=== PATIENT | male | born 1965 | race Hispanic/Latino ===

== ENCOUNTER 2017-10-17 11:44 | Inpatient (IN) | payer MEDICAID, OTHER ==
--- NOTE | 2017-10-17 12:08 | ED PDOC ---
Arrival/HPI - General Chief Complaint: Shortness Of Breath Time Seen by Provider: 10/17/17 12:03 Historian: Patient - History of Present Illness Narrative History of Present Illness (Text): 10/17/17 12:08 A 52 year old male, whose past medical history includes asthma, presents to the emergency department complaining of progressively worsening shortness of breath for 1 week. Patient reports using nebulizer treatments 3-4 times daily, with no relief. He notes a fever, chills, wheezing and productive cough. Patient denies any nausea, vomiting, diarrhea, abdominal pain, chest pain or any other complaints. Patient denies any sick contact. PMD: Dr. Rodriguez Time/Duration: 1 week Symptom Course: Worsening Context: Home Past Medical History - Provider Review Nursing Documentation Reviewed: Yes - Infectious Disease Hx of Infectious Diseases: None - Cardiac Hx Cardiac Disorders: No Hx Pacemaker: No - Pulmonary Hx Respiratory Disorders: No Hx Asthma: Yes Other/Comment: SMOKE 1 1/2 PACK A DAY, USES INHALER BUT DENIES HAVING ASTHMA ANY RESP. PROBLEM - Neurological Hx Neurological Disorder: No Hx Paralysis: No - HEENT Hx HEENT Disorder: Yes (USES GLASSES FOR READING) - Endocrine/Metabolic Hx Endocrine Disorders: No - Hematological/Oncological Hx Blood Disorders: No Hx Blood Transfusions: No - Integumentary Hx Dermatological Disorder: No - Musculoskeletal/Rheumatological Hx Musculoskeletal Disorders: No - Gastrointestinal Hx Gastrointestinal Disorders: No - Genitourinary/Gynecological Hx Genitourinary Disorders: Yes Other/Comment: HX OF FREQUENT URINATION ON MEDS - Psychiatric Hx Psychophysiologic Disorder: No Hx Substance Use: No - Anesthesia Hx Anesthesia: No Family/Social History - Physician Review Nursing Documentation Reviewed: Yes Family/Social History: No Known Family HX Smoking Status: Heavy Smoker > 10 Cigarettes Daily Hx Alcohol Use: Yes Hx Substance Use: No Allergies/Home Meds Allergies/Adverse Reactions: Allergies No Known Allergies Allergy (Verified 10/17/17 22:18) Review of Systems - Physician Review All systems were reviewed & negative as marked: Yes - Review of Systems Constitutional: Fevers, Night Sweats Respiratory: SOB, Cough, Sputum, Wheezing Cardiovascular: absent: Chest Pain Gastrointestinal: absent: Abdominal Pain, Diarrhea, Nausea, Vomiting Physical Exam Vital Signs Reviewed: Yes Vital Signs Temp Pulse Resp BP Pulse Ox 10/17/17 17:19 18 99 10/17/17 16:43 98.7 F 89 20 142/80 94 L 10/17/17 12:40 20 10/17/17 12:36 97.7 F 86 18 160/87 H 97 10/17/17 11:53 98.4 F 82 18 141/84 96 Temperature: Afebrile Blood Pressure: Hypertensive Pulse: Regular Respiratory Rate: Normal Appearance: Positive for: Well-Appearing, Non-Toxic, Comfortable Pain Distress: None Mental Status: Positive for: Alert and Oriented X 3 - Systems Exam Head: Present: Atraumatic, Normocephalic Pupils: Present: PERRL Extroacular Muscles: Present: EOMI Conjunctiva: Present: Normal Mouth: Present: Moist Mucous Membranes Neck: Present: Normal Range of Motion Respiratory/Chest: Present: Good Air Exchange, Wheezes (bilaterally), Rhonchi ( bilaterally). No: Respiratory Distress, Accessory Muscle Use Cardiovascular: Present: Regular Rate and Rhythm, Normal S1, S2. No: Murmurs Abdomen: Present: Normal Bowel Sounds. No: Tenderness, Distention, Peritoneal Signs Back: Present: Normal Inspection Upper Extremity: Present: Normal Inspection. No: Cyanosis, Edema Lower Extremity: Present: Normal Inspection. No: Edema Neurological: Present: GCS=15, CN II-XII Intact, Speech Normal Skin: Present: Warm (to touch), Dry, Normal Color. No: Rashes Psychiatric: Present: Alert, Oriented x 3, Normal Insight, Normal Concentration Medical Decision Making ED Course and Treatment: 10/17/17 12:08 Impression: A 52 year old male with shortness of breath. Patient notes fever, wheezing and productive cough. Differential Diagnosis included but are not limited to: Rule out Asthma exacerbation vs. PNA Plan: -- Chest xray -- EKG -- Labs -- Blood culture -- Rapid flu -- Duoneb and Solumedrol -- Reassess and disposition Progress Notes: EKG shows NSR at 91 BPM with normal intervals, normal axis. Interpreted by me. 10/17/17 13:10 Chest xray read and interpreted by me, which shows no active disease. 10/17/17 15:00 Patient's sodium was low and treated with NS IVF. On reevalution, pateint improved but continues to have wheezing and shortness of breathe. Neb treatments given. Case discussed with Dr. Ren, who accepts admission to remote telemetry. Patient aware of and in agreement with plan. - Lab Interpretations Microbiology Results: Microbiology Results 10/17/17 12:09 Blood-Venous Blood Culture - Preliminary NO GROWTH AFTER 4 DAYS 10/17/17 11:50 Blood-Venous Blood Culture - Preliminary NO GROWTH AFTER 4 DAYS Lab Results: 10/17/17 12:04 10/17/17 12:04 Lab Results 10/17/17 13:20: pCO2 55 H, pO2 68.0 L, HCO3 32.5 H, ABG pH 7.38, ABG Total CO2 34.2 H, ABG O2 Saturation 97.6, ABG O2 Content 16.7, ABG Base Excess 5.8 H, ABG Hemoglobin 13.9, ABG Carboxyhemoglobin 12.2 H, POC ABG HHb (Measured) 2.1, ABG Methemoglobin 0.6, ABG O2 Capacity 17.1, Hgb O2 Saturation 85.1 L, FiO2 21.0 10/17/17 12:16: Influenza Typ A,B (EIA) Negative for flu a/b 10/17/17 12:04: Sodium 121 L, Chloride 81 L, Potassium 4.4, Carbon Dioxide 32, Anion Gap 12, BUN 13, Creatinine 0.5 L, Est GFR ( Amer) > 60, Est GFR ( Non-Af Amer) > 60, Random Glucose 135 H, Calcium 9.5, Lactate Dehydrogenase 391 , Total Creatine Kinase 197, Troponin I < 0.01, NT-Pro-B Natriuret Pep 329 10/17/17 12:04: pO2 67 H, VBG pH 7.38, VBG pCO2 66.0 H*, VBG HCO3 39.0 H, VBG Total CO2 41.0 H, VBG O2 Sat (Calc) 97.0 H, VBG Base Excess 11.1 H, VBG Potassium 4.3, Sodium 121.0 L, Chloride 84.0 L, Glucose 139 H, Lactate 1.1, FiO2 21.0, Venous Blood Potassium 4.3 10/17/17 12:04: WBC 10.6, RBC 4.58, Hgb 14.2, Hct 40.7 L, MCV 88.9, MCH 31.0, MCHC 34.9, RDW 12.6, Plt Count 284, MPV 10.7, Gran % 72.5 H, Lymph % (Auto) 13.1 L, [place] % (Auto) 10.8 H, Eos % (Auto) 3.3, Baso % (Auto) 0.3, Gran # 7.68 H , Lymph # 1.4, [place] # 1.2 H, Eos # 0.4, Baso # 0.03 I have reviewed the lab results: Yes Interpretation: All labs normal - RAD Interpretation Radiology Orders: 10/17/17 12:15 CHEST PORTABLE [RAD] Stat - Medication Orders Current Medication Orders: Discontinued Medications Acetaminophen (Tylenol 325mg Tab) 650 mg PO Q4H PRN PRN Reason: Fever >100.5 F Albuterol/Ipratropium (Duoneb 3 Mg/0.5 Mg (3 Ml) Ud) 3 ml IH Q15M [facility] Stop: 10/17/17 13:01 Last Admin: 10/17/17 13:01 Dose: 3 ml Albuterol/Ipratropium (Duoneb 3 Mg/0.5 Mg (3 Ml) Ud) 3 ml IH [id number] [facility] Last Admin: 10/18/17 11:54 Dose: 3 ml Albuterol/Ipratropium (Duoneb 3 Mg/0.5 Mg (3 Ml) Ud) 3 ml IH Q2H PRN PRN Reason: Wheezing Last Admin: 10/18/17 10:00 Dose: 3 ml Albuterol/Ipratropium (Duoneb 3 Mg/0.5 Mg (3 Ml) Ud) 3 ml IH Q3H PRN PRN Reason: Wheezing Enoxaparin Sodium (Lovenox) 30 mg SC DAILY [facility] PRN Reason: Protocol Last Admin: 10/18/17 09:44 Dose: 30 mg Subcutaneous Administrations Document 10/18/17 09:44 MM (Rec: 10/18/17 09:44 MM [id number]) Injection Site MAR Injection Site Right Abdomen Charges for Administration # of Subcutaneous Administrations 1 Famotidine (Pepcid) 40 mg PO [facility] Last Admin: 10/17/17 21:44 Dose: 40 mg Folic Acid (Folic Acid) 1 mg PO DAILY [facility] Last Admin: 10/18/17 09:43 Dose: 1 mg Guaifenesin (Robitussin) 100 mg PO Q4H PRN PRN Reason: Cough Last Admin: 10/17/17 21:44 Dose: 100 mg Sodium Chloride (Sodium Chloride 0.9%) 1,000 mls @ 100 mls/hr IV .Q10H [facility] Last Admin: 10/17/17 15:49 Dose: 100 mls/hr eMAR Start Stop Document 10/17/17 15:49 [email or web address] (Rec: 10/17/17 15:50 [email or web address] [facility] [id number]) Intravenous Solution Start Date 10/17/17 Start Time 15:50 End Date 10/17/17 Azithromycin (Zithromax 500mg In Ns) 500 mg in 250 mls @ 167 mls/hr IVPB DAILY [facility] PRN Reason: Protocol Last Admin: 10/18/17 09:39 Dose: 167 mls/hr eMAR Start Stop Document 10/18/17 09:39 MM (Rec: 10/18/17 09:40 MM [id number]) Intravenous Solution Start Date 10/18/17 Start Time 09:40 End Date 10/18/17 End time 11:10 Total Infusion Time 90 Sodium Chloride (Sodium Chloride 0.9%) 1,000 mls @ 80 mls/hr IV .[id number] [facility] Last Admin: 10/17/17 17:05 Dose: 80 mls/hr eMAR Start Stop Document 10/17/17 17:05 [email or web address] (Rec: 10/17/17 17:[email or web address] [id number]) Intravenous Solution Start Date 10/17/17 Start Time 17:05 End Date 10/17/17 Sodium Chloride (Sodium Chloride 0.9%) 1,000 mls @ 50 mls/hr IV .Q20H [facility] Methylprednisolone (Solu-Medrol) 125 mg IVP STAT STA Stop: 10/17/17 12:13 Last Admin: 10/17/17 12:31 Dose: 125 mg IVP Administration Document 10/17/17 12:31 [email or web address] (Rec: 10/17/17 12:31 [email or web address] [id number]) Charges for Administration # of IVP Administrations 1 Methylprednisolone (Solu-Medrol) 40 mg IVP Q12 [facility] Methylprednisolone (Solu-Medrol) 40 mg IVP DAILY [facility] Methylprednisolone (Solu-Medrol) 40 mg IVP Q8H [facility] Last Admin: 10/18/17 09:43 Dose: 40 mg IVP Administration Document 10/18/17 09:43 MM (Rec: 10/18/17 09:43 MM [id number]) Charges for Administration # of IVP Administrations 1 Nicotine (Nicoderm Cq) 1 patch TD STAT STA Stop: 10/17/17 15:07 Last Admin: 10/17/17 15:51 Dose: 1 patch MAR Transdermal Patch Site Document 10/17/17 15:51 [email or web address] (Rec: 10/17/17 15:52 [email or web address] [facility] [id number]) Transdermal Patch Site Transdermal Patch Site Right Shoulder Re-Assess: MAR Transdermal Patch Removal Document 10/18/17 03:51 ALCIDES (Rec: 10/18/17 06:12 [email or web address]) Transdermal Patch Removal Removal of Transdermal Patch done? Yes Nicotine (Nicoderm Cq) 1 patch TD DAILY [facility] Last Admin: 10/18/17 09:44 Dose: 1 patch MAR Transdermal Patch Site Document 10/18/17 09:44 MM (Rec: 10/18/17 09:44 MM [id number]) Transdermal Patch Site Transdermal Patch Site Right Outer Upper Arm Pneumococcal Polyvalent Vaccine (Pneumovax 23 Vaccine) 0.5 ml IM .ONCE ONE Stop: 10/17/17 23:10 Thiamine HCl (Vitamin B1 Tab) 100 mg PO DAILY [facility] Last Admin: 10/18/17 09:58 Dose: 100 mg - Scribe Statement The provider has reviewed the documentation as recorded by the George Dunn Provider Scribe Attestation: All medical record entries made by the Scribamanda were at my direction and personally dictated by me. I have reviewed the chart and agree that the record accurately reflects my personal performance of the history, physical exam, medical decision making, and the department course for this patient. I have also personally directed, reviewed, and agree with the discharge instructions and disposition. Disposition/Present on Arrival - Present on Arrival Any Indicators Present on Arrival: No History of DVT/PE: No History of Uncontrolled Diabetes: No Urinary Catheter: No History of Decub. Ulcer: No History Surgical Site Infection Following: None - Disposition Have Diagnosis and Disposition been Completed?: Yes Diagnosis: COPD exacerbation, Hyponatremia Disposition: HOSPITALIZED Disposition Time: 15:00 Patient Plan: Admission Condition: GUARDED
[2017-10-17] MEDS: Albuterol-Ipratrop 3 mg / 0.5 (3 ml) UD IH SCH ×4 (12:31→18:48)
--- NOTE | 2017-10-17 12:41 | RAD ---
HISTORY: sob r/o pna COMPARISON: No prior. FINDINGS: LUNGS: The lungs are well inflated and clear. PLEURA: No significant pleural effusion identified, no pneumothorax apparent. CARDIOVASCULAR: Normal. OSSEOUS STRUCTURES: No significant abnormalities. VISUALIZED UPPER ABDOMEN: Normal. OTHER FINDINGS: None. IMPRESSION: No active pulmonary disease.
[2017-10-17 12:43] LABS: VENOUS BLOOD GAS BASE EXCESS 11.1 mmol/L (0.0-2.0); VENOUS BLOOD GAS PO2 67 mm/Hg (30-55); VENOUS BLOOD PH 7.38 (7.32-7.43)
[2017-10-17 12:50] LABS: BLOOD UREA NITROGEN 13 mg/dL (7-21); CALCIUM 9.5 mg/dL (8.4-10.5); GFR AFRICAN-AMERICAN > 60; GFR NON-AFRICAN AMERICAN > 60
[2017-10-17 13:01] LABS: B-TYPE NATRIURETIC PEPTIDE 329 pg/mL (0-450); TROPONIN I < 0.01 ng/mL
[2017-10-17 13:04] LABS: BASO # 0.03 K/mm3 (0.0-2.0); BASO % 0.3 % (0.0-3.0); EOS # 0.4 (0.0-0.7); EOS % 3.3 % (1.5-5.0); GRAN # 7.68 (1.4-6.5); GRAN % 72.5 % (50.0-68.0); HEMOGLOBIN 14.2 g/dL (14.0-18.0); LYMPH # 1.4 (1.2-3.4); LYMPH % 13.1 % (22.0-35.0); MEAN CELL VOLUME 88.9 fl (80.0-105.0); MEAN CORPUSCULAR HGB CONC 34.9 g/dl (31.0-37.0); MEAN PLATELET VOLUME 10.7 fl (7.0-11.0); MONO # 1.2 (0.1-0.6); MONO % 10.8 % (1.0-6.0); RBC 4.58 10^6/uL (3.5-6.1); RED CELL DISTRIBUTION WIDTH 12.6 % (11.5-14.5); WHITE BLOOD COUNT 10.6 10^3/ul (4.5-11.0)
[2017-10-17] MEDS ORDERED: Sodium Chloride 0.9% 1,000 ML IV SCH ×2 (13:15→16:01)
[2017-10-17 13:28] LABS: ARTERIAL BLOOD GAS HCO3 32.5 mmol/L (21-28); ARTERIAL BLOOD GAS HEMOGLOBIN 13.9 g/dL (11.7-17.4); ARTERIAL BLOOD GAS O2 CAPACITY 17.1 mL/dl (16-24); ARTERIAL BLOOD GAS O2 CONTENT 16.7 ML/dl (15-23); ARTERIAL BLOOD GAS O2 SAT 97.6 % (95-98); ARTERIAL BLOOD GAS PCO2 55 mm/Hg (35-45); ARTERIAL BLOOD GAS PH 7.38 (7.35-7.45); ARTERIAL BLOOD GAS TCO2 34.2 mmol.L (22-28)
--- NOTE | 2017-10-17 16:46 | CP.PCM.HP ---
Past Patient History - Infectious Disease Hx of Infectious Diseases: None - Past Medical History & Family History Past Medical History?: Yes - Past Social History Smoking Status: Heavy Smoker > 10 Cigarettes Daily - CARDIAC Hx Cardiac Disorders: No Hx Pacemaker: No - PULMONARY Hx Respiratory Disorders: No Hx Asthma: Yes Other/Comment: SMOKE 1 1/2 PACK A DAY, USES INHALER BUT DENIES HAVING ASTHMA ANY RESP. PROBLEM - NEUROLOGICAL Hx Neurological Disorder: No Hx Paralysis: No - HEENT Hx HEENT Problems: Yes (USES GLASSES FOR READING) - ENDOCRINE/METABOLIC Hx Endocrine Disorders: No - HEMATOLOGICAL/ONCOLOGICAL Hx Blood Disorders: No Hx Blood Transfusions: No - INTEGUMENTARY Hx Dermatological Problems: No - MUSCULOSKELETAL/RHEUMATOLOGICAL Hx Musculoskeletal Disorders: No - GASTROINTESTINAL Hx Gastrointestinal Disorders: No - GENITOURINARY/GYNECOLOGICAL Hx Genitourinary Disorders: Yes Other/Comment: HX OF FREQUENT URINATION ON MEDS - PSYCHIATRIC Hx Psychophysiologic Disorder: No Hx Substance Use: No - SURGICAL HISTORY Hx Surgeries: No - ANESTHESIA Hx Anesthesia: No Meds Allergies/Adverse Reactions: Allergies Allergy/AdvReac Type Severity Reaction Status Date / Time No Known Allergies Allergy Verified 10/17/17 11:58 Results - Vital Signs Recent Vital Signs: Last Vital Signs Temp 98.7 F 10/17/17 16:43 Pulse 89 10/17/17 16:43 Resp 20 10/17/17 16:43 BP 142/80 10/17/17 16:43 Pulse Ox 94 L 10/17/17 16:43 - Labs Result Diagrams: 10/17/17 12:04 10/17/17 12:04
[2017-10-17] MEDS: Azithromycin 500MG/NS 250ml 500 MG/250 ML BAG IVPB SCH (16:57)
[2017-10-17] MEDS ORDERED: Albuterol-Ipratrop 3 mg / 0.5 (3 ml) UD IH PRN (17:06)
[2017-10-17 17:30] LABS: PH,URINE 6.5 (4.7-8.0); URINE BILIRUBIN NEGATIVE (NEGATIVE); URINE BLOOD NEGATIVE (NEGATIVE); URINE GLUCOSE (UA) NEGATIVE (NEGATIVE); URINE LEUKOCYTE ESTERASE NEGATIVE Leu/uL (NEGATIVE); URINE NITRATE NEGATIVE (NEGATIVE); URINE PROTEIN NEGATIVE mg/dL (<30 mg/dL); URINE UROBILINOGEN 0.2 E.U./dL (<1 E.U./dL)
[2017-10-17 17:35] LABS: HDL CHOLESTEROL 81 mg/dL (29-60); URIC ACID 2.8 mg/dL (3.5-8.5)
[2017-10-17 17:37] LABS: URINE APPEARANCE CLEAR (CLEAR); URINE COLOR STRAW (YELLOW)
[2017-10-17] MEDS ORDERED: guaiFENesin 100 mg/5 ml Syrup UD PO PRN (17:42)
[2017-10-17 17:43] LABS: LDL CHOLESTEROL 65 mg/dL (0-129)
--- NOTE | 2017-10-17 17:43 | CP.PCM.HP ---
<Deidra Fox - Last Filed: 10/17/17 17:26> History of Present Illness - History of Present Illness History of Present Illness: Deidra Fox, PGY1, H&P for Dr Ren: CC: wheezing 52 year old male with hx of asthma (never intubated), tobacco abuse/alcohol abuse, presents for wheezing. Pt states that he has been cold symptoms for past week with sore throat, productive cough (yellow sputum), nasal congestion. He has been requiring his ventolin inhaler more than usual at home. He then started having wheezing, requiring him to come to ED. Denies fever, chills, nausea, vomiting, diarrhea, abdominal pain, chest pain, sob, urinary symptoms, leg swelling, orthopnea, pleurisy, tachycardia. Patient denies any sick contact or recent travel. In ED, pt afebrile, vitals stable. Labs remarkbale for Na 121, started on NS @ 100 ml/hr. Received methylprednisolone 125 mg, duonebs treatment in ED. At the time of my exam, pt comfortable, not wheezing. 12 point ROS neg, except as per HPI PMH: Asthma, tobacco/alcohol abuse PSH: denies All: denies FH: denies SH: lives in [facility] with girlfriend. Drinks 4-5 cans of beers daily. 1.5 ppd smoker x >20 years. Previous IV drug user, denies current recreational drug use. 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 Present on Admission - Present on Admission Any Indicators Present on Admission: No History of DVT/PE: No History of Uncontrolled Diabetes: No Urinary Catheter: No Decubitus Ulcer Present: No Review of Systems - Review of Systems All systems: reviewed and no additional remarkable complaints except Review of Systems: as per hpi Past Patient History - Infectious Disease Hx of Infectious Diseases: None - Past Medical History & Family History Past Medical History?: Yes - Past Social History Smoking Status: Heavy Smoker > 10 Cigarettes Daily - CARDIAC Hx Cardiac Disorders: No Hx Pacemaker: No - PULMONARY Hx Respiratory Disorders: No Hx Asthma: Yes Other/Comment: SMOKE 1 1/2 PACK A DAY, USES INHALER BUT DENIES HAVING ASTHMA ANY RESP. PROBLEM - NEUROLOGICAL Hx Neurological Disorder: No Hx Paralysis: No - HEENT Hx HEENT Problems: Yes (USES GLASSES FOR READING) - ENDOCRINE/METABOLIC Hx Endocrine Disorders: No - HEMATOLOGICAL/ONCOLOGICAL Hx Blood Disorders: No Hx Blood Transfusions: No - INTEGUMENTARY Hx Dermatological Problems: No - MUSCULOSKELETAL/RHEUMATOLOGICAL Hx Musculoskeletal Disorders: No - GASTROINTESTINAL Hx Gastrointestinal Disorders: No - GENITOURINARY/GYNECOLOGICAL Hx Genitourinary Disorders: Yes Other/Comment: HX OF FREQUENT URINATION ON MEDS - PSYCHIATRIC Hx Psychophysiologic Disorder: No Hx Substance Use: No - SURGICAL HISTORY Hx Surgeries: No - ANESTHESIA Hx Anesthesia: No Meds Allergies/Adverse Reactions: Allergies Allergy/AdvReac Type Severity Reaction Status Date / Time No Known Allergies Allergy Verified 10/17/17 22:18 Physical Exam - Constitutional Appears: Non-toxic, Older Than Stated Age - Head Exam Head Exam: ATRAUMATIC, NORMOCEPHALIC - Eye Exam Eye Exam: EOMI, PERRL. absent: Conjunctival injection, Scleral icterus Pupil Exam: NORMAL ACCOMODATION, PERRL. absent: Fixed, Irregular - ENT Exam ENT Exam: Mucous Membranes Moist - Neck Exam Neck exam: Positive for: Full Rom - Respiratory Exam Respiratory Exam: Clear to Auscultation Bilateral, NORMAL BREATHING PATTERN. absent: Accessory Muscle Use, Chest Wall Tenderness, Wheezes, Respiratory Distress - Cardiovascular Exam Cardiovascular Exam: RRR, +S1, +S2. absent: Systolic Murmur - GI/Abdominal Exam GI & Abdominal Exam: Normal Bowel Sounds, Soft. absent: Diminished Bowel Sounds , Distended, Guarding, Organomegaly, Pulsatile Mass, Rigid, Tenderness - Extremities Exam Extremities exam: Positive for: normal inspection. Negative for: calf tenderness, pedal edema Additional comments: no hand tremors - Back Exam Back exam: NORMAL INSPECTION. absent: CVA tenderness (L), CVA tenderness (R) - Neurological Exam Neurological exam: Alert, Oriented x3 - Psychiatric Exam Psychiatric exam: Normal Affect, Normal Mood - Skin Skin Exam: Dry, Normal Color, Warm Results - Vital Signs Recent Vital Signs: Last Vital Signs Temp 98.7 F 10/17/17 16:43 Pulse 89 10/17/17 16:43 Resp 18 10/17/17 17:19 BP 142/80 10/17/17 16:43 Pulse Ox 99 10/17/17 17:19 - Labs Result Diagrams: 10/17/17 12:04 10/17/17 12:04 Assessment & Plan - Assessment and Plan (Free Text) Assessment: 52 year old male with hx of asthma/COPD, tobacco/alcohol abuse, admitted for hyponatremia, COPD/asthma exacerbation: Hyponatremia: 2/2 dehydration vs SIADH vs hypothyroidism vs psychogenic polydipsia vs beer potomania vs adrenocorticotropin deficiency - Pt euvolemic on exam - Na 121 on admission. Currently asymptomatic (no lethargy, headache, LOC) - Obtain urine Na, urine/serum osmolarity, TSH, uric acid. F/u results - NS @ 80 ml/hr - F/u Na level Q 8h - Seizure precautions COPD/asthma exacerbation: - hyperinflated lungs seen on CXR. neg for infiltrates. - Methyprednisolone 125 mg given in ED - Duonebs filomena and prn - Robitussin - IV steroids - Azithromycin - Maintain sats 88-92% - 2 L NC - Flu neg Alcohol abuse/Withdrawal: - CIWA protocol - Seizure/fall precautions - Ativan prn - Neuro checks Tobacco abuse: - advised cessation - Nicotine patch Discussed with Dr Ren. Deidra Fox PGY1 - Date & Time Date: 10/17/17 Time: 17:43 <Francisco J Ren - Last Filed: 10/18/17 08:36> Results - Vital Signs Recent Vital Signs: Last Vital Signs Temp 97.9 F 10/18/17 00:00 Pulse 87 10/18/17 04:45 Resp 22 10/18/17 00:00 BP 160/98 H 10/18/17 00:00 Pulse Ox 97 10/18/17 00:00 - Labs Result Diagrams: 10/18/17 03:15 10/18/17 03:15 Labs: Laboratory Results - last 24 hr 10/17/17 10/17/17 10/17/17 17:00 17:00 17:00 WBC RBC Hgb Hct MCV MCH MCHC RDW Plt Count MPV Gran % Lymph % (Auto) [place] % (Auto) Eos % (Auto) Baso % (Auto) Gran # Lymph # [place] # Eos # Baso # Sodium 125 L Potassium 4.7 Chloride 86 L Carbon Dioxide 28 Anion Gap 16 BUN 10 Creatinine 0.5 L Est GFR ( Amer) > 60 Est GFR (Non-Af Amer) > 60 Random Glucose 127 H Hemoglobin A1c Uric Acid 2.8 L Calcium 10.0 Phosphorus Magnesium Total Bilirubin 0.5 AST 34 ALT 33 Alkaline Phosphatase 78 Total Protein 7.6 Albumin 4.3 Globulin 3.3 Albumin/Globulin Ratio 1.3 Triglycerides 50 Cholesterol 159 LDL Cholesterol Direct 65 HDL Cholesterol 81 H TSH 3rd Generation 0.65 Urine Color Straw Urine Appearance Clear Urine pH 6.5 Ur Specific [place] <= 1.005 Urine Protein Negative Urine Glucose (UA) Negative Urine Ketones Trace H Urine Blood Negative Urine Nitrate Negative Urine Bilirubin Negative Urine Urobilinogen 0.2 Ur Leukocyte Esterase Negative Ur Random Creatinine Ur Random Sodium Urine Opiates Screen Urine Methadone Screen Ur Barbiturates Screen Ur Phencyclidine Scrn Ur Amphetamines Screen U Benzodiazepines Scrn U Oth Cocaine Metabols U Cannabinoids Screen Alcohol, Quantitative 10/17/17 10/17/17 10/18/17 17:00 17:00 03:06 WBC RBC Hgb Hct MCV MCH MCHC RDW Plt Count MPV Gran % Lymph % (Auto) [place] % (Auto) Eos % (Auto) Baso % (Auto) Gran # Lymph # [place] # Eos # Baso # Sodium Potassium Chloride Carbon Dioxide Anion Gap BUN Creatinine Est GFR ( Amer) Est GFR (Non-Af Amer) Random Glucose Hemoglobin A1c 5.9 Uric Acid Calcium Phosphorus Magnesium Total Bilirubin AST ALT Alkaline Phosphatase Total Protein Albumin Globulin Albumin/Globulin Ratio Triglycerides Cholesterol LDL Cholesterol Direct HDL Cholesterol TSH 3rd Generation Urine Color Urine Appearance Urine pH Ur Specific [place] Urine Protein Urine Glucose (UA) Urine Ketones Urine Blood Urine Nitrate Urine Bilirubin Urine Urobilinogen Ur Leukocyte Esterase Ur Random Creatinine Ur Random Sodium 72 Urine Opiates Screen Urine Methadone Screen Ur Barbiturates Screen Ur Phencyclidine Scrn Ur Amphetamines Screen U Benzodiazepines Scrn U Oth Cocaine Metabols U Cannabinoids Screen Alcohol, Quantitative < 10 10/18/17 10/18/17 10/18/17 03:06 03:15 03:15 WBC 6.4 D RBC 4.69 Hgb 14.0 Hct 42.0 MCV 89.6 MCH 29.9 MCHC 33.3 RDW 12.9 Plt Count 301 MPV 10.4 Gran % 79.3 H Lymph % (Auto) 12.6 L [place] % (Auto) 8.1 H Eos % (Auto) 0.0 L Baso % (Auto) 0.0 Gran # 5.10 Lymph # 0.8 L [place] # 0.5 Eos # 0.0 Baso # 0.00 Sodium 132 Potassium 4.7 Chloride 93 L Carbon Dioxide 31 Anion Gap 13 BUN 10 Creatinine 0.5 L Est GFR ( Amer) > 60 Est GFR (Non-Af Amer) > 60 Random Glucose 115 H Hemoglobin A1c Uric Acid Calcium 9.7 Phosphorus 4.3 Magnesium 2.0 Total Bilirubin 0.4 AST 27 ALT 32 Alkaline Phosphatase 63 Total Protein 7.1 Albumin 3.9 Globulin 3.2 Albumin/Globulin Ratio 1.2 Triglycerides Cholesterol LDL Cholesterol Direct HDL Cholesterol TSH 3rd Generation Urine Color Urine Appearance Urine pH Ur Specific [place] Urine Protein Urine Glucose (UA) Urine Ketones Urine Blood Urine Nitrate Urine Bilirubin Urine Urobilinogen Ur Leukocyte Esterase Ur Random Creatinine 27 Ur Random Sodium Urine Opiates Screen Negative Urine Methadone Screen Negative Ur Barbiturates Screen Negative Ur Phencyclidine Scrn Negative Ur Amphetamines Screen Negative U Benzodiazepines Scrn Negative U Oth Cocaine Metabols Negative U Cannabinoids Screen Negative Alcohol, Quantitative Attending/Attestation - Attestation I have personally seen and examined this patient.: Yes I have fully participated in the care of the patient.: Yes I have reviewed all pertinent clinical information: Yes Notes (Text): 10/18/17 08:30 Patient was seen and examined with medical delivery technician. Agreed with resident assessment and plan. 52 yrs old male with PMH of chronic smoking, alcohol abuse, COPD less likely asthma is admitted with COPD exacerbation, agreed with Neb, Steroid and antibiotics. Hyponatremia, patient is asymptomatic, does not look clinically to be dehydrated , we will check UA, urine electrolyte and urine osmolality. We will watch patient for alcohol withdrawal. Management plan was discussed in detail with patient Education was provided.
--- NOTE | 2017-10-17 17:53 | CARD ---
APPROVED REPORT EKG Measurement Heart [id number] <Conclusion> Sinus rhythm with short VT Nonspecific T wave abnormality Abnormal ECG
[2017-10-17 18:34] LABS: ALB/GLOB RATIO 1.3 (1.1-1.8); ALBUMIN 4.3 g/dL (3.0-4.8); ALT/SGPT 33 U/L (7-56); AST/SGOT 34 U/L (17-59); BLOOD UREA NITROGEN 10 mg/dL (7-21); GFR AFRICAN-AMERICAN > 60; GFR NON-AFRICAN AMERICAN > 60
[2017-10-17] MEDS: Albuterol-Ipratrop 3 mg / 0.5 (3 ml) UD IH PRN (19:43)
[2017-10-17] MEDS ORDERED: MethylPREDNISolone 40 mg Vial IVP SCH (22:00)
[2017-10-17 23:09] VITALS: BMI 24.0
[2017-10-17] MEDS ORDERED: Pneumococcal 23-Valent Vaccine IM ONE (23:09)
[2017-10-17] MEDS ORDERED: Influenza Vaccine 60 mcg/0.5 mL SYR (4YR UP) IM ONE (23:09)
[2017-10-18 01:02] VITALS: RESP 22
[2017-10-18] MEDS: Albuterol-Ipratrop 3 mg / 0.5 (3 ml) UD IH SCH ×4 (01:12→11:54)
[2017-10-18 03:39] LABS: GRAN # 5.1 (1.4-6.5); GRAN % 79.3 % (50.0-68.0); LYMPH # 0.8 (1.2-3.4); LYMPH % 12.6 % (22.0-35.0); MEAN CELL VOLUME 89.6 fl (80.0-105.0); MEAN CORPUSCULAR HEMOGLOBIN 29.9 pg (25.0-35.0); MEAN CORPUSCULAR HGB CONC 33.3 g/dl (31.0-37.0); MEAN PLATELET VOLUME 10.4 fl (7.0-11.0); MONO # 0.5 (0.1-0.6); MONO % 8.1 % (1.0-6.0); RBC 4.69 10^6/uL (3.5-6.1); RED CELL DISTRIBUTION WIDTH 12.9 % (11.5-14.5); WHITE BLOOD COUNT 6.4 10^3/ul (4.5-11.0)
[2017-10-18] MEDS: MethylPREDNISolone 40 mg Vial IVP SCH ×2 (03:40→09:43)
[2017-10-18 04:11] LABS: ALB/GLOB RATIO 1.2 (1.1-1.8); ALBUMIN 3.9 g/dL (3.0-4.8); ALT/SGPT 32 U/L (7-56); AST/SGOT 27 U/L (17-59); BLOOD UREA NITROGEN 10 mg/dL (7-21); CALCIUM 9.7 mg/dL (8.4-10.5); GFR AFRICAN-AMERICAN > 60; GFR NON-AFRICAN AMERICAN > 60
[2017-10-18 04:11] LABS: CREATININE,RANDOM URINE 27 mg/dL
[2017-10-18 04:17] LABS: BARBITURATES, UR NEGATIVE (NEGATIVE); BENZODIAZEPINES, UR NEGATIVE (NEGATIVE); OPIATES, UR NEGATIVE (NEGATIVE); PHENCYCLIDINE, UR NEGATIVE (NEGATIVE)
[2017-10-18] MEDS ORDERED: Sodium Chloride 0.9% 1,000 ML IV SCH (04:35)
[2017-10-18] MEDS: Azithromycin 500MG/NS 250ml 500 MG/250 ML BAG IVPB SCH (09:39)
[2017-10-18] MEDS ORDERED: MethylPREDNISolone 40 mg Vial IVP SCH (10:00)
[2017-10-18] MEDS ORDERED: Enoxaparin 30 mg Syringe SC SCH (10:00)
[2017-10-18] MEDS: Albuterol-Ipratrop 3 mg / 0.5 (3 ml) UD IH PRN (10:00)
[2017-10-18 10:12] VITALS: BP 146/96; PULSE 83; TEMP 97.8; O2SAT 98
--- NOTE | 2017-10-18 11:02 | CP.PCM.DIS ---
<Deidra Fox - Last Filed: 10/18/17 15:05> Provider - Provider Date of Admission: 10/17/17 15:01 Attending physician: Francisco J Ren MD Primary care physician: Vikki Rodriguez MD Time Spent in preparation of Discharge (in minutes): 35 Diagnosis - Discharge Diagnosis (1) COPD exacerbation Status: Acute (2) Hyponatremia Status: Acute Hospital Course - Lab Results Lab Results: Most Recent Lab Values WBC 6.4 10^3/ul (4.5-11.0) D 10/18/17 03:15 RBC 4.69 10^6/uL (3.5-6.1) 10/18/17 03:15 Hgb 14.0 g/dL (14.0-18.0) 10/18/17 03:15 Hct 42.0 % (42.0-52.0) 10/18/17 03:15 MCV 89.6 fl (80.0-105.0) 10/18/17 03:15 MCH 29.9 pg (25.0-35.0) 10/18/17 03:15 MCHC 33.3 g/dl (31.0-37.0) 10/18/17 03:15 RDW 12.9 % (11.5-14.5) 10/18/17 03:15 Plt Count 301 10^3/uL (120.0-450.0) 10/18/17 03:15 MPV 10.4 fl (7.0-11.0) 10/18/17 03:15 Gran % 79.3 % (50.0-68.0) H 10/18/17 03:15 Lymph % (Auto) 12.6 % (22.0-35.0) L 10/18/17 03:15 Moffat % (Auto) 8.1 % (1.0-6.0) H 10/18/17 03:15 Eos % (Auto) 0.0 % (1.5-5.0) L 10/18/17 03:15 Baso % (Auto) 0.0 % (0.0-3.0) 10/18/17 03:15 Gran # 5.10 (1.4-6.5) 10/18/17 03:15 Lymph # 0.8 (1.2-3.4) L 10/18/17 03:15 Moffat # 0.5 (0.1-0.6) 10/18/17 03:15 Eos # 0.0 (0.0-0.7) 10/18/17 03:15 Baso # 0.00 K/mm3 (0.0-2.0) 10/18/17 03:15 pCO2 55 mm/Hg (35-45) H 10/17/17 13:20 pO2 68.0 mm/Hg (80-100) L 10/17/17 13:20 HCO3 32.5 mmol/L (21-28) H 10/17/17 13:20 ABG pH 7.38 (7.35-7.45) 10/17/17 13:20 ABG Total CO2 34.2 mmol.L (22-28) H 10/17/17 13:20 ABG O2 Saturation 97.6 % (95-98) 10/17/17 13:20 ABG O2 Content 16.7 ML/dl (15-23) 10/17/17 13:20 ABG Base Excess 5.8 mmol/L (-2.0-3.0) H 10/17/17 13:20 ABG Hemoglobin 13.9 g/dL (11.7-17.4) 10/17/17 13:20 ABG Carboxyhemoglobin 12.2 % (0.5-1.5) H 10/17/17 13:20 POC ABG HHb (Measured) 2.1 % (0-5) 10/17/17 13:20 ABG Methemoglobin 0.6 % (0.0-3.0) 10/17/17 13:20 ABG O2 Capacity 17.1 mL/dl (16-24) 10/17/17 13:20 VBG pH 7.38 (7.32-7.43) 10/17/17 12:04 VBG pCO2 66.0 (40-60) H* 10/17/17 12:04 VBG HCO3 39.0 mmol/l (21-28) H 10/17/17 12:04 VBG Total CO2 41.0 mmol.L (22-28) H 10/17/17 12:04 VBG O2 Sat (Calc) 97.0 % (40-65) H 10/17/17 12:04 VBG Base Excess 11.1 mmol/L (0.0-2.0) H 10/17/17 12:04 VBG Potassium 4.3 mmol/L (3.6-5.2) 10/17/17 12:04 Hgb O2 Saturation 85.1 % (95.0-98.0) L 10/17/17 13:20 Sodium 121.0 mmol/L (132-148) L 10/17/17 12:04 Chloride 84.0 mmol/L (98-107) L 10/17/17 12:04 Glucose 139 mg/dl (75-110) H 10/17/17 12:04 Lactate 1.1 mmol/L (0.7-2.1) 10/17/17 12:04 FiO2 21.0 % 10/17/17 13:20 Sodium 132 mmol/L (132-148) 10/18/17 03:15 Potassium 4.7 mmol/L (3.6-5.0) 10/18/17 03:15 Chloride 93 mmol/L (98-107) L 10/18/17 03:15 Carbon Dioxide 31 mmol/L (21-33) 10/18/17 03:15 Anion Gap 13 (10-20) 10/18/17 03:15 BUN 10 mg/dL (7-21) 10/18/17 03:15 Creatinine 0.5 mg/dl (0.8-1.5) L 10/18/17 03:15 Est GFR ( Amer) > 60 10/18/17 03:15 Est GFR (Non-Af Amer) > 60 10/18/17 03:15 Random Glucose 115 mg/dL (70-110) H 10/18/17 03:15 Hemoglobin A1c 5.9 % (4.2-6.5) 10/17/17 17:00 Uric Acid 2.8 mg/dL (3.5-8.5) L 10/17/17 17:00 Calcium 9.7 mg/dL (8.4-10.5) 10/18/17 03:15 Phosphorus 4.3 mg/dL (2.5-4.5) 10/18/17 03:15 Magnesium 2.0 mg/dL (1.7-2.2) 10/18/17 03:15 Total Bilirubin 0.4 mg/dL (0.2-1.3) 10/18/17 03:15 AST 27 U/L (17-59) 10/18/17 03:15 ALT 32 U/L (7-56) 10/18/17 03:15 Alkaline Phosphatase 63 U/L (38-126) 10/18/17 03:15 Lactate Dehydrogenase 391 U/L (333-699) 10/17/17 12:04 Total Creatine Kinase 197 U/L (35-230) 10/17/17 12:04 Troponin I < 0.01 ng/mL 10/17/17 12:04 NT-Pro-B Natriuret Pep 329 pg/mL (0-450) 10/17/17 12:04 Total Protein 7.1 g/dL (5.8-8.3) 10/18/17 03:15 Albumin 3.9 g/dL (3.0-4.8) 10/18/17 03:15 Globulin 3.2 gm/dL 10/18/17 03:15 Albumin/Globulin Ratio 1.2 (1.1-1.8) 10/18/17 03:15 Triglycerides 50 mg/dL (35-160) 10/17/17 17:00 Cholesterol 159 mg/dL (130-200) 10/17/17 17:00 LDL Cholesterol Direct 65 mg/dL (0-129) 10/17/17 17:00 HDL Cholesterol 81 mg/dL (29-60) H 10/17/17 17:00 TSH 3rd Generation 0.65 mIU/mL (0.46-4.68) 10/17/17 17:00 Venous Blood Potassium 4.3 mmol/L (3.6-5.2) 10/17/17 12:04 Urine Color Straw (YELLOW) 10/17/17 17:00 Urine Appearance Clear (CLEAR) 10/17/17 17:00 Urine pH 6.5 (4.7-8.0) 10/17/17 17:00 Ur Specific [place] <= 1.005 (1.005-1.035) 10/17/17 17:00 Urine Protein Negative mg/dL (<30 mg/dL) 10/17/17 17:00 Urine Glucose (UA) Negative mg/dL (NEGATIVE) 10/17/17 17:00 Urine Ketones Trace mg/dL (NEGATIVE) H 10/17/17 17:00 Urine Blood Negative (NEGATIVE) 10/17/17 17:00 Urine Nitrate Negative (NEGATIVE) 10/17/17 17:00 Urine Bilirubin Negative (NEGATIVE) 10/17/17 17:00 Urine Urobilinogen 0.2 E.U./dL (<1 E.U./dL) 10/17/17 17:00 Ur Leukocyte Esterase Negative Yane/uL (NEGATIVE) 10/17/17 17:00 Ur Random Creatinine 27 mg/dL 10/18/17 03:06 Ur Random Sodium 72 meq/L 10/18/17 03:06 Urine Opiates Screen Negative (NEGATIVE) 10/18/17 03:06 Urine Methadone Screen Negative (NEGATIVE) 10/18/17 03:06 Ur Barbiturates Screen Negative (NEGATIVE) 10/18/17 03:06 Ur Phencyclidine Scrn Negative (NEGATIVE) 10/18/17 03:06 Ur Amphetamines Screen Negative (NEGATIVE) 10/18/17 03:06 U Benzodiazepines Scrn Negative (NEGATIVE) 10/18/17 03:06 U Oth Cocaine Metabols Negative (NEGATIVE) 10/18/17 03:06 U Cannabinoids Screen Negative (NEGATIVE) 10/18/17 03:06 Alcohol, Quantitative < 10 mg/dL (0-10) 10/17/17 17:00 Influenza Typ A,B (EIA) Negative for flu a/b (NEGATIVE) 10/17/17 12:16 - Hospital Course Hospital Course: 52 year old male with hx of asthma (never intubated), tobacco abuse/alcohol abuse, presents for wheezing. Pt states that he has been cold symptoms for past week with sore throat, productive cough (yellow sputum), nasal congestion. He has been requiring his ventolin inhaler more than usual at home. He then started having wheezing, requiring him to come to ED. Denies fever, chills, nausea, vomiting, diarrhea, abdominal pain, chest pain, sob, urinary symptoms, leg swelling, orthopnea, pleurisy, tachycardia. Patient denies any sick contact or recent travel. In ED, pt afebrile, vitals stable. Labs remarkbale for Na 121 , started on NS @ 100 ml/hr. Received methylprednisolone 125 mg, duonebs treatment in ED. Received normal saline and Na corrected to 132. Pt received IV steroids, duonebs treatment, zithromax, with symptoms resolving. Pt discharged with steroids, antibiotic, multivitamin, folic acid, thiamine. Pt advised to avoid cold weather and smoking. Pt also given Asmanex and ventolin inhaler refill at home. Discharge Exam - Head Exam Head Exam: ATRAUMATIC, NORMOCEPHALIC - Eye Exam Eye Exam: EOMI, PERRL. absent: Conjunctival injection, Scleral icterus Pupil Exam: NORMAL ACCOMODATION, PERRL - ENT Exam ENT Exam: Mucous Membranes Moist - Neck Exam Neck exam: Full Rom - Respiratory Exam Respiratory Exam: Clear to PA & Lateral, NORMAL BREATHING PATTERN. absent: Rales, Rhonchi, Wheezes, Respiratory Distress - Cardiovascular Exam Cardiovascular Exam: RRR, +S1, +S2. absent: Systolic Murmur - GI/Abdominal Exam GI & Abdominal Exam: Normal Bowel Sounds, Soft. absent: Distended, Guarding, Mass, Tenderness - Extremities Exam Extremities exam: normal inspection - Back Exam Back exam: NORMAL INSPECTION - Neurological Exam Neurological exam: Alert, Oriented x3 - Psychiatric Exam Psychiatric exam: Normal Affect, Normal Mood - Skin Skin Exam: Dry, Normal Color, Warm Discharge Plan - Discharge Medications Prescriptions: Albuterol HFA [Ventolin HFA 90 mcg/actuation (8 g)] 1 puff IH Q6H PRN #1 inhaler PRN Reason: Shortness Of Breath Azithromycin [Zithromax] 500 mg PO DAILY 3 Days tab Folic Acid 1 mg PO DAILY 30 Days tab Mometasone Furoate [Asmanex] 110 mcg IH DAILY #1 aer.pow.ba predniSONE [predniSONE Tab] 40 mg PO DAILY 5 Days tab Thiamine [Vitamin B1 Tab] 100 mg PO DAILY #30 tab - Follow Up Plan Condition: GOOD Disposition: HOME/ ROUTINE Instructions: Asthma (DC), How to Stop Smoking (DC), COPD (Chronic Obstructive Pulmonary Disease) (DC), Abuse of Alcohol (DC) Additional Instructions: - You are given scripts of Ventolin (every 6 hours as needed) and Asmanex (once a day) inhalers. Take Prednisone for 5 days and Zithromax for 3 days. - You are also given scripts for multivitamin, folate and thiamine daily tablets. - Stop smoking and avoid cold weather. - Stop alcohol usage as well. - Follow up with PMD in 1 week. - Return to ED if symptoms return. Referrals: Vikki Rodriguez MD [Primary Care Provider] - <Francisco J Ren - Last Filed: 10/18/17 18:21> Provider - Provider Date of Admission: 10/17/17 15:01 Attending physician: Francisco J Ren MD Primary care physician: Vikki Rodriguez MD Hospital Course - Lab Results Lab Results: Most Recent Lab Values WBC 6.4 10^3/ul (4.5-11.0) D 10/18/17 03:15 RBC 4.69 10^6/uL (3.5-6.1) 10/18/17 03:15 Hgb 14.0 g/dL (14.0-18.0) 10/18/17 03:15 Hct 42.0 % (42.0-52.0) 10/18/17 03:15 MCV 89.6 fl (80.0-105.0) 10/18/17 03:15 MCH 29.9 pg (25.0-35.0) 10/18/17 03:15 MCHC 33.3 g/dl (31.0-37.0) 10/18/17 03:15 RDW 12.9 % (11.5-14.5) 10/18/17 03:15 Plt Count 301 10^3/uL (120.0-450.0) 10/18/17 03:15 MPV 10.4 fl (7.0-11.0) 10/18/17 03:15 Gran % 79.3 % (50.0-68.0) H 10/18/17 03:15 Lymph % (Auto) 12.6 % (22.0-35.0) L 10/18/17 03:15 Moffat % (Auto) 8.1 % (1.0-6.0) H 10/18/17 03:15 Eos % (Auto) 0.0 % (1.5-5.0) L 10/18/17 03:15 Baso % (Auto) 0.0 % (0.0-3.0) 10/18/17 03:15 Gran # 5.10 (1.4-6.5) 10/18/17 03:15 Lymph # 0.8 (1.2-3.4) L 10/18/17 03:15 Moffat # 0.5 (0.1-0.6) 10/18/17 03:15 Eos # 0.0 (0.0-0.7) 10/18/17 03:15 Baso # 0.00 K/mm3 (0.0-2.0) 10/18/17 03:15 pCO2 55 mm/Hg (35-45) H 10/17/17 13:20 pO2 68.0 mm/Hg (80-100) L 10/17/17 13:20 HCO3 32.5 mmol/L (21-28) H 10/17/17 13:20 ABG pH 7.38 (7.35-7.45) 10/17/17 13:20 ABG Total CO2 34.2 mmol.L (22-28) H 10/17/17 13:20 ABG O2 Saturation 97.6 % (95-98) 10/17/17 13:20 ABG O2 Content 16.7 ML/dl (15-23) 10/17/17 13:20 ABG Base Excess 5.8 mmol/L (-2.0-3.0) H 10/17/17 13:20 ABG Hemoglobin 13.9 g/dL (11.7-17.4) 10/17/17 13:20 ABG Carboxyhemoglobin 12.2 % (0.5-1.5) H 10/17/17 13:20 POC ABG HHb (Measured) 2.1 % (0-5) 10/17/17 13:20 ABG Methemoglobin 0.6 % (0.0-3.0) 10/17/17 13:20 ABG O2 Capacity 17.1 mL/dl (16-24) 10/17/17 13:20 VBG pH 7.38 (7.32-7.43) 10/17/17 12:04 VBG pCO2 66.0 (40-60) H* 10/17/17 12:04 VBG HCO3 39.0 mmol/l (21-28) H 10/17/17 12:04 VBG Total CO2 41.0 mmol.L (22-28) H 10/17/17 12:04 VBG O2 Sat (Calc) 97.0 % (40-65) H 10/17/17 12:04 VBG Base Excess 11.1 mmol/L (0.0-2.0) H 10/17/17 12:04 VBG Potassium 4.3 mmol/L (3.6-5.2) 10/17/17 12:04 Hgb O2 Saturation 85.1 % (95.0-98.0) L 10/17/17 13:20 Sodium 121.0 mmol/L (132-148) L 10/17/17 12:04 Chloride 84.0 mmol/L (98-107) L 10/17/17 12:04 Glucose 139 mg/dl (75-110) H 10/17/17 12:04 Lactate 1.1 mmol/L (0.7-2.1) 10/17/17 12:04 FiO2 21.0 % 10/17/17 13:20 Sodium 132 mmol/L (132-148) 10/18/17 12:30 Potassium 4.3 mmol/L (3.6-5.0) 10/18/17 12:30 Chloride 92 mmol/L (98-107) L 10/18/17 12:30 Carbon Dioxide 28 mmol/L (21-33) 10/18/17 12:30 Anion Gap 17 (10-20) 10/18/17 12:30 BUN 11 mg/dL (7-21) 10/18/17 12:30 Creatinine 0.5 mg/dl (0.8-1.5) L 10/18/17 12:30 Est GFR ( Amer) > 60 10/18/17 12:30 Est GFR (Non-Af Amer) > 60 10/18/17 12:30 Random Glucose 130 mg/dL (70-110) H 10/18/17 12:30 Hemoglobin A1c 5.9 % (4.2-6.5) 10/17/17 17:00 Serum Osmolality 251 mosm/kg (272-300) L 10/17/17 17:00 Uric Acid 2.8 mg/dL (3.5-8.5) L 10/17/17 17:00 Calcium 9.7 mg/dL (8.4-10.5) 10/18/17 12:30 Phosphorus 4.3 mg/dL (2.5-4.5) 10/18/17 03:15 Magnesium 2.0 mg/dL (1.7-2.2) 10/18/17 03:15 Total Bilirubin 0.3 mg/dL (0.2-1.3) 10/18/17 12:30 AST 24 U/L (17-59) 10/18/17 12:30 ALT 32 U/L (7-56) 10/18/17 12:30 Alkaline Phosphatase 60 U/L (38-126) 10/18/17 12:30 Lactate Dehydrogenase 391 U/L (333-699) 10/17/17 12:04 Total Creatine Kinase 197 U/L (35-230) 10/17/17 12:04 Troponin I < 0.01 ng/mL 10/17/17 12:04 NT-Pro-B Natriuret Pep 329 pg/mL (0-450) 10/17/17 12:04 Total Protein 7.1 g/dL (5.8-8.3) 10/18/17 12:30 Albumin 4.0 g/dL (3.0-4.8) 10/18/17 12:30 Globulin 3.1 gm/dL 10/18/17 12:30 Albumin/Globulin Ratio 1.3 (1.1-1.8) 10/18/17 12:30 Triglycerides 50 mg/dL (35-160) 10/17/17 17:00 Cholesterol 159 mg/dL (130-200) 10/17/17 17:00 LDL Cholesterol Direct 65 mg/dL (0-129) 10/17/17 17:00 HDL Cholesterol 81 mg/dL (29-60) H 10/17/17 17:00 TSH 3rd Generation 0.65 mIU/mL (0.46-4.68) 10/17/17 17:00 Venous Blood Potassium 4.3 mmol/L (3.6-5.2) 10/17/17 12:04 Urine Color Straw (YELLOW) 10/17/17 17:00 Urine Appearance Clear (CLEAR) 10/17/17 17:00 Urine pH 6.5 (4.7-8.0) 10/17/17 17:00 Ur Specific [place] <= 1.005 (1.005-1.035) 10/17/17 17:00 Urine Protein Negative mg/dL (<30 mg/dL) 10/17/17 17:00 Urine Glucose (UA) Negative mg/dL (NEGATIVE) 10/17/17 17:00 Urine Ketones Trace mg/dL (NEGATIVE) H 10/17/17 17:00 Urine Blood Negative (NEGATIVE) 10/17/17 17:00 Urine Nitrate Negative (NEGATIVE) 10/17/17 17:00 Urine Bilirubin Negative (NEGATIVE) 10/17/17 17:00 Urine Urobilinogen 0.2 E.U./dL (<1 E.U./dL) 10/17/17 17:00 Ur Leukocyte Esterase Negative Yane/uL (NEGATIVE) 10/17/17 17:00 Urine Osmolality 313 mosm/kg (300-1000) 10/18/17 03:06 Ur Random Creatinine 27 mg/dL 10/18/17 03:06 Ur Random Sodium 72 meq/L 10/18/17 03:06 Urine Opiates Screen Negative (NEGATIVE) 10/18/17 03:06 Urine Methadone Screen Negative (NEGATIVE) 10/18/17 03:06 Ur Barbiturates Screen Negative (NEGATIVE) 10/18/17 03:06 Ur Phencyclidine Scrn Negative (NEGATIVE) 10/18/17 03:06 Ur Amphetamines Screen Negative (NEGATIVE) 10/18/17 03:06 U Benzodiazepines Scrn Negative (NEGATIVE) 10/18/17 03:06 U Oth Cocaine Metabols Negative (NEGATIVE) 10/18/17 03:06 U Cannabinoids Screen Negative (NEGATIVE) 10/18/17 03:06 Alcohol, Quantitative < 10 mg/dL (0-10) 10/17/17 17:00 Influenza Typ A,B (EIA) Negative for flu a/b (NEGATIVE) 10/17/17 12:16 Attending/Attestation - Attestation I have personally seen and examined this patient.: Yes I have fully participated in the care of the patient.: Yes I have reviewed all pertinent clinical information, including history, physical exam and plan: Yes Notes (Text): 10/18/17 18:18 Patient was seen and examined with medical reimbursement manager. Agreed with resident assessment and plan. 52 yrs old male with PMH of chronic smoking, alcohol abuse, COPD less likely asthma was admitted with COPD exacerbation, treated with Neb, Steroid and antibiotics. Patient symptoms has improved.He is on room air.He is not wheezing and is ambulatory.He will be discharged home on short course of Prednisone 40 mg po daily. Hyponatremia, likely SIADH. Hyponatremia has improved.Patient is asymptomatic. There is no sign of alcoho withdrawal. Issue of ongoing alcohol and chronic smoking was discussed in detail with patient. Management plan was discussed in detail with patient Education was provided.
[2017-10-18 11:25] LABS: OSMOLALITY,URINE 313 mosm/kg (300-1000)
[2017-10-18 12:52] LABS: ALB/GLOB RATIO 1.3 (1.1-1.8); ALT/SGPT 32 U/L (7-56); AST/SGOT 24 U/L (17-59); BLOOD UREA NITROGEN 11 mg/dL (7-21); CALCIUM 9.7 mg/dL (8.4-10.5); GFR AFRICAN-AMERICAN > 60; GFR NON-AFRICAN AMERICAN > 60
[2017-10-18 16:17] LABS: OSMOLALITY,SERUM 251 mosm/kg (272-300)
== END 2017-10-18 14:14 | disposition home or self-care (01) | DRG 191 ==
LOC: ED 11:44 → ERH 15:01 → 3RNO 17:22
PROVIDERS: ADMIT Internal Medicine; ATTEND Internal Medicine
PROC: 3E0F7GC Introduction of Other Therapeutic Substance into Respiratory Tract, Via Natural or Artificial Opening (ICD-10-PCS; principal; 2017-10-17)
DX: J44.1 Chronic obstructive pulmonary disease with (acute) exacerbation (principal); J45.901 Unspecified asthma with (acute) exacerbation; E22.2 Syndrome of inappropriate secretion of antidiuretic hormone; F17.210 Nicotine dependence, cigarettes, uncomplicated; F10.10 Alcohol abuse, uncomplicated

== ENCOUNTER 2017-11-02 18:27 | Inpatient (IN) | payer MEDICAID ==
[2017-11-02] MEDS ORDERED: Albuterol-Ipratrop 3 mg / 0.5 (3 ml) UD ONE (19:13)
[2017-11-02] MEDS ORDERED: Albuterol-Ipratrop 3 mg / 0.5 (3 ml) UD IH STA (19:27)
[2017-11-02] MEDS ORDERED: Magnesium Sulfate 1 gm in D5W 1 GM/100 ML BAG IVPB ONE (19:28)
--- NOTE | 2017-11-02 19:32 | ED PDOC ---
Arrival/HPI - General Chief Complaint: Shortness Of Breath Time Seen by Provider: 11/02/17 18:53 Historian: Patient - History of Present Illness Narrative History of Present Illness (Text): you were treated in the ED today for history of Asthma/COPD without prior intubation, with last discharge 10/18/17 for respiratory exacerbation/ hyponatremia and discharged home on azithromycin/prednisone and now coming back to the ED with wheezing/difficulty breathing coughing with yellow sputum, and you were otherwise without any nausea/vomiting/headache/dizziness/chest pain/ abdomen pain/numbness/tingling/loss of limb function. 11/02/17 19:29 11/02/17 19:30 Time/Duration: 24 hours Symptom Onset: Gradual Symptom Course: Unchanged Activities at Onset: Rest Context: Sitting Past Medical History - Provider Review Nursing Documentation Reviewed: Yes - Travel History Have you recently traveled outside [place] w/in the past 3 mons?: No - Infectious Disease Hx of Infectious Diseases: None - Cardiac Hx Cardiac Disorders: No Hx Pacemaker: No - Pulmonary Hx Respiratory Disorders: No Hx Asthma: Yes Other/Comment: SMOKE 1 1/2 PACK A DAY, USES INHALER BUT DENIES HAVING ASTHMA ANY RESP. PROBLEM - Neurological Hx Neurological Disorder: No Hx Paralysis: No - HEENT Hx HEENT Disorder: Yes (USES GLASSES FOR READING) - Endocrine/Metabolic Hx Endocrine Disorders: No - Hematological/Oncological Hx Blood Disorders: No Hx Blood Transfusions: No - Integumentary Hx Dermatological Disorder: No - Musculoskeletal/Rheumatological Hx Musculoskeletal Disorders: No - Gastrointestinal Hx Gastrointestinal Disorders: No - Genitourinary/Gynecological Hx Genitourinary Disorders: Yes Other/Comment: HX OF FREQUENT URINATION ON MEDS - Psychiatric Hx Psychophysiologic Disorder: No Hx Substance Use: No - Anesthesia Hx Anesthesia: No Family/Social History - Physician Review Nursing Documentation Reviewed: Yes Family/Social History: Unknown Family HX Smoking Status: Heavy Smoker > 10 Cigarettes Daily Hx Alcohol Use: Yes Hx Substance Use: No Allergies/Home Meds Allergies/Adverse Reactions: Allergies No Known Allergies Allergy (Verified 11/02/17 19:00) Review of Systems - Review of Systems Constitutional: Normal Eyes: Normal ENT: Normal Respiratory: SOB, Cough, Sputum, Wheezing Cardiovascular: Normal Gastrointestinal: Normal Genitourinary Male: Normal Musculoskeletal: Normal Skin: Normal Neurological: Normal Endocrine: Normal Hemo/Lymphatic: Normal Psychiatric: Normal Physical Exam Vital Signs Reviewed: Yes Vital Signs Temp Pulse Resp BP Pulse Ox 11/02/17 18:47 98.9 F 105 H 22 156/85 H 90 L Temperature: Afebrile Blood Pressure: Hypertensive Pulse: Tachycardic Respiratory Rate: Normal Appearance: Positive for: Ill-Appearing Pain Distress: None Mental Status: Positive for: Alert and Oriented X 3 - Systems Exam Head: Present: Atraumatic, Normocephalic Pupils: Present: PERRL Extroacular Muscles: Present: EOMI Conjunctiva: Present: Normal Ears: Present: Normal Mouth: Present: Moist Mucous Membranes Pharnyx: Present: Normal Nose (External): Present: Atraumatic Nose (Internal): Present: Normal Inspection Neck: Present: Normal Range of Motion Respiratory/Chest: Present: Wheezes Cardiovascular: Present: Regular Rate and Rhythm Abdomen: No: Tenderness, Distention, Normal Bowel Sounds, Peritoneal Signs, Rebound, Guarding, McBurney's Point Tender, Rovsing's Sign Present, Hernias, Feeding Tubes, Ostomy Tubes, Mass/Organomegaly, Scars, Other Back: Present: Normal Inspection Upper Extremity: Present: Normal Inspection Lower Extremity: Present: Normal Inspection Neurological: Present: GCS=15, CN II-XII Intact, Speech Normal, Motor Func Grossly Intact Skin: Present: Warm, Normal Color Psychiatric: Present: Alert, Oriented x 3, Normal Insight, Normal Concentration Medical Decision Making ED Course and Treatment: you were treated in the ED today for history of Asthma/COPD without prior intubation, with last discharge 10/18/17 for respiratory exacerbation/ hyponatremia and discharged home on azithromycin/prednisone and now coming back to the ED with wheezing/difficulty breathing coughing with yellow sputum, and you were otherwise without any nausea/vomiting/headache/dizziness/chest pain/ abdomen pain/numbness/tingling/loss of limb function/history of travel/prior blood clots/prior cancer. you were sitting up, comfortable, alert/oriented, good strength/sensation, no abdomen tenderness, pink skin, no fever temp 98.9, mildly fast heart rate 105, stable breathing rate 22, low oxygen level 90% room air, elevated blood pressure 156/85which we recommend followup primary care 2-3 days repeat and determine further treatment. wbc 18.4 hb 12.9 plts 299 lactic 1.0 sodium 114 gentle hydration ns 50cc/hr BNP 1300 Trop 0.03 mg 1.3 CXR no acute. pt using accessory ms, BIPAP started. pt has received x5 duonebs, magnesium, solumedrol. 11/02/17 20:48 11/02/17 21:08 pt improved on bipap. more calm. ECG: sinus tachycardia similar to 10/17/17. d/w Dr. Peña who evaluated pt, ABG to be done. decide telemetry vs icu. 11/02/17 21:27 d/w director of graduate medical education who stated taking pt the icu. - Lab Interpretations Lab Results: 11/02/17 19:35 11/02/17 19:35 Lab Results 11/02/17 19:35: pO2 99 H, VBG pH 7.29 L, VBG pCO2 93.0 H*, VBG HCO3 44.7 H, VBG Total CO2 47.6 H, VBG O2 Sat (Calc) 98.8 H, VBG Base Excess 13.7 H, VBG Potassium 3.9, Sodium 112.0 L*, Chloride 71.0 L, Glucose 157 H, Lactate 1.0, FiO2 21.0, Venous Blood Potassium 3.9 11/02/17 19:35: Sodium 114 L*, Chloride 65 L D, Potassium 4.1, Carbon Dioxide 41 H D, Anion Gap Pending, BUN 7, Creatinine 0.5 L, Est GFR ( Amer) > 60 , Est GFR (Non-Af Amer) > 60, Random Glucose 157 H, Calcium 9.5, Magnesium 1.3 L , Total Bilirubin 0.7, AST 48, ALT 34, Alkaline Phosphatase 75, Lactate Dehydrogenase 439, Total Creatine Kinase 239 H, CK-MB (CK-2) 22.8 H, CK-MB (CK-2 ) % 9.5 H, Troponin I 0.03 D, NT-Pro-B Natriuret Pep 1300 H, Total Protein 7.1 , Albumin 4.1, Globulin 3.0, Albumin/Globulin Ratio 1.3 11/02/17 19:35: PT 14.2 H, INR 1.24 H, APTT 32.3 11/02/17 19:35: WBC 18.4 H D, RBC 4.23, Hgb 12.9 L, Hct 36.1 L, MCV 85.3 D, MCH 30.5, MCHC 35.7, RDW 12.0, Plt Count 299, MPV 10.0, Gran % 91.9 H, Lymph % ( Auto) 3.5 L, [place] % (Auto) 4.4, Eos % (Auto) 0.1 L, Baso % (Auto) 0.1, Gran # 16.95 H, Lymph # (Auto) 0.7 L, [place] # (Auto) 0.8 H, Eos # (Auto) 0.0, Baso # ( Auto) 0.01, Neutrophils % (Manual) Pending, Lymphocytes % (Manual) Pending, Monocytes % (Manual) Pending I have reviewed the lab results: Yes - RAD Interpretation Radiology Orders: 11/02/17 19:26 CHEST PORTABLE [RAD] 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: ED Physician (CXR no acute) - EKG Interpretation Interpreted by ED Physician: Yes (sinus tachycardia) Type: 12 lead EKG Comparison: Similar to previous EKG (10/17/17) - Medication Orders Current Medication Orders: Sodium Chloride (Sodium Chloride 0.9%) 1,000 mls @ 50 mls/hr IV .Q20H SOLEDAD Discontinued Medications Albuterol/Ipratropium (Duoneb 3 Mg/0.5 Mg (3 Ml) Ud) 3 ml IH STAT STA Stop: 11/02/17 19:28 Last Admin: 11/02/17 19:49 Dose: 3 ml Magnesium Sulfate/Dextrose (Magnesium Sulfate 1 Gm/100 Ml D5w) 1 gm in 100 mls @ 100 mls/hr IVPB ONCE ONE Stop: 11/02/17 20:27 Last Admin: 11/02/17 19:48 Dose: 100 mls/hr eMAR Start Stop Document 11/02/17 19:48 JOL (Rec: 11/02/17 19:48 [id number]) Intravenous Solution Start Date 11/02/17 Start Time 19:48 End Date 11/02/17 End time 20:48 Total Infusion Time 60 Methylprednisolone (Solu-Medrol) 125 mg IVP STAT STA Stop: 11/02/17 19:28 Last Admin: 11/02/17 19:49 Dose: 125 mg IVP Administration Document 11/02/17 19:49 JOL (Rec: 11/02/17 19:49 [facility]OL [id number]) Charges for Administration # of IVP Administrations 1 Disposition/Present on Arrival - Present on Arrival Any Indicators Present on Arrival: No History of DVT/PE: No History of Uncontrolled Diabetes: No Urinary Catheter: No History of Decub. Ulcer: No History Surgical Site Infection Following: None - Disposition Have Diagnosis and Disposition been Completed?: Yes Diagnosis: COPD (chronic obstructive pulmonary disease), Hyponatremia, Hypomagnesemia Disposition: HOSPITALIZED Disposition Time: 21:28 Patient Plan: Admission, ICU Condition: SERIOUS Forms: [employer] (Sinhala)
[2017-11-02 19:58] LABS: BASO # 0.01 K/mm3 (0.0-2.0); BASO % 0.1 % (0.0-3.0); EOS % 0.1 % (1.5-5.0); GRAN # 16.95 (1.4-6.5); GRAN % 91.9 % (50.0-68.0); HEMOGLOBIN 12.9 g/dL (14.0-18.0); LYMPH # 0.7 (1.2-3.4); LYMPH % 3.5 % (22.0-35.0); MEAN CELL VOLUME 85.3 fl (80.0-105.0); MEAN CORPUSCULAR HEMOGLOBIN 30.5 pg (25.0-35.0); MEAN CORPUSCULAR HGB CONC 35.7 g/dl (31.0-37.0); MONO # 0.8 (0.1-0.6); MONO % 4.4 % (1.0-6.0); PLATELET COUNT 299 10^3/uL (120.0-450.0); RBC 4.23 10^6/uL (3.5-6.1); WHITE BLOOD COUNT 18.4 10^3/ul (4.5-11.0)
[2017-11-02 20:03] LABS: VENOUS BLOOD GAS BASE EXCESS 13.7 mmol/L (0.0-2.0); VENOUS BLOOD GAS PO2 99 mm/Hg (30-55); VENOUS BLOOD PH 7.29 (7.32-7.43)
[2017-11-02 20:08] LABS: PROTHROMBIN TIME 14.2 SECONDS (9.4-12.5)
[2017-11-02 20:09] LABS: INR 1.24 (0.93-1.08); PARTIAL THROMBOPLASTIN TIME 32.3 Seconds (25.1-36.5)
[2017-11-02 20:12] LABS: B-TYPE NATRIURETIC PEPTIDE 1300 pg/mL (0-450); TROPONIN I 0.03 ng/mL
[2017-11-02 20:21] LABS: ALB/GLOB RATIO 1.3 (1.1-1.8); ALBUMIN 4.1 g/dL (3.0-4.8); ALT/SGPT 34 U/L (7-56); AST/SGOT 48 U/L (17-59); BLOOD UREA NITROGEN 7 mg/dL (7-21); CALCIUM 9.5 mg/dL (8.4-10.5); GFR AFRICAN-AMERICAN > 60; GFR NON-AFRICAN AMERICAN > 60; MAGNESIUM 1.3 mg/dL (1.7-2.2)
[2017-11-02] MEDS ORDERED: Sodium Chloride 0.9% 1,000 ML IV SCH (21:00)
[2017-11-02 21:33] LABS: ARTERIAL BLOOD GAS HCO3 34.3 mmol/L (21-28); ARTERIAL BLOOD GAS HEMOGLOBIN 10.6 g/dL (11.7-17.4); ARTERIAL BLOOD GAS O2 CAPACITY 13.3 mL/dl (16-24); ARTERIAL BLOOD GAS O2 SAT 97.6 % (95-98); ARTERIAL BLOOD GAS PCO2 80 mm/Hg (35-45); ARTERIAL BLOOD GAS PH 7.24 (7.35-7.45); ARTERIAL BLOOD GAS TCO2 36.8 mmol.L (22-28)
[2017-11-02 21:35] LABS: CK MB% 9.5 % (2.5-3.0); CK-MB 22.8 ng/mL (0.0-3.6)
[2017-11-02] MEDS ORDERED: Albuterol 0.083% Inhal Sol (2.5 mg/3 mL) UD IH PRN (21:44)
[2017-11-02] MEDS ORDERED: Thiamine 100 mg/ml Inj IM ONE (21:46)
[2017-11-02] MEDS ORDERED: Etomidate 20 mg/10ml Inj IV ONE (21:52)
[2017-11-02] MEDS ORDERED: Succinylcholine 200 mg/10 ml Inj IV ONE (21:52)
[2017-11-02 22:01] LABS: BAND 4 % (0-2); LYMPHOCYTE 3 % (22.0-35.0); MONOCYTE 7 % (1.0-6.0); NEUTROPHIL 86 % (50.0-70.0)
[2017-11-02 22:02] LABS: PLATELET ESTIMATE NORMAL (NORMAL)
[2017-11-02] MEDS ORDERED: Propofol 10 mg/ml 1,000 MG/100 ML VIAL IV PRN (22:02)
--- NOTE | 2017-11-02 22:09 | CP.PCM.HP ---
<Jeny Dutta - Last Filed: 11/02/17 23:40> History of Present Illness - History of Present Illness History of Present Illness: H&P for HospitalistToro PGY2 This is a 52yo male with PMH asthma, COPD?, tobacco abuse, possible alcohol abuse who came to ED for shortness of breath. He was [place] [facility] [place] for hyponatremia and a respiratory exacerbation (possibly COPD- not formally diagnosed). He was discharged home with Prednisone and Zithromax. Upon examined , patient was lethargic, but arousable on BiPAP and moving all extremities. History is obtained through ED and prior records. As per ED, patient has been complaining of shortness of breath, cough with yellow mucus. He was noted to have leukocytosis, PCO2 of 80 on Bipap and sodium of 114. Patient was altered without much improvement on BiPAP as well as hyponatremia so patient was intubated. During intubation, patient was found to have a possible pharyngeal mass seen with glidoscope. 12 Point ROS could not be obtained. 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 Present on Admission - Present on Admission Any Indicators Present on Admission: No Review of Systems - Review of Systems Systems not reviewed;Unavailable: Respiratory Distress, Altered Mental Status Past Patient History - Infectious Disease Hx of Infectious Diseases: None - Past Medical History & Family History Past Medical History?: Yes - Past Social History Smoking Status: Heavy Smoker > 10 Cigarettes Daily Alcohol: > 2 Drinks/Day Drugs: Denies, Other (former IVDA) Home Situation {Lives}: With Family - CARDIAC Hx Cardiac Disorders: No Hx Pacemaker: No - PULMONARY Hx Respiratory Disorders: No Hx Asthma: Yes Other/Comment: SMOKE 1 1/2 PACK A DAY, USES INHALER BUT DENIES HAVING ASTHMA ANY RESP. PROBLEM - NEUROLOGICAL Hx Neurological Disorder: No Hx Paralysis: No - HEENT Hx HEENT Problems: Yes (USES GLASSES FOR READING) - ENDOCRINE/METABOLIC Hx Endocrine Disorders: No - HEMATOLOGICAL/ONCOLOGICAL Hx Blood Disorders: No Hx Blood Transfusions: No - INTEGUMENTARY Hx Dermatological Problems: No - MUSCULOSKELETAL/RHEUMATOLOGICAL Hx Musculoskeletal Disorders: No - GASTROINTESTINAL Hx Gastrointestinal Disorders: No - GENITOURINARY/GYNECOLOGICAL Hx Genitourinary Disorders: Yes Other/Comment: HX OF FREQUENT URINATION ON MEDS - PSYCHIATRIC Hx Psychophysiologic Disorder: No Hx Substance Use: No - SURGICAL HISTORY Hx Surgeries: No - ANESTHESIA Hx Anesthesia: No Meds Allergies/Adverse Reactions: Allergies Allergy/AdvReac Type Severity Reaction Status Date / Time No Known Allergies Allergy Verified 11/02/17 19:00 Physical Exam - Constitutional Appears: Older Than Stated Age - Head Exam Head Exam: ATRAUMATIC, NORMAL INSPECTION, NORMOCEPHALIC - Eye Exam Eye Exam: Normal appearance, PERRL Pupil Exam: NORMAL ACCOMODATION, PERRL - ENT Exam ENT Exam: Mucous Membranes Dry - Respiratory Exam Respiratory Exam: Wheezes, NORMAL BREATHING PATTERN. absent: Rales, Stridor - Cardiovascular Exam Cardiovascular Exam: REGULAR RHYTHM, +S1, +S2. absent: Gallop, Rubs, Systolic Murmur - GI/Abdominal Exam GI & Abdominal Exam: Normal Bowel Sounds, Soft. absent: Mass, Rebound, Rigid - Extremities Exam Extremities exam: Positive for: normal inspection. Negative for: calf tenderness, pedal edema - Neurological Exam Neurological exam: CN II-XII Intact - Skin Skin Exam: Dry, Warm Additional comments: skin very dry and flaky Results - Vital Signs Recent Vital Signs: Last Vital Signs Temp 98.9 F 11/02/17 18:47 Pulse 105 H 11/02/17 18:47 Resp 22 11/02/17 18:47 BP 156/85 H 11/02/17 18:47 Pulse Ox 90 L 11/02/17 18:47 - Labs Result Diagrams: 11/02/17 19:35 11/02/17 19:35 Assessment & Plan - Assessment and Plan (Free Text) Assessment: This is a 52yo male with PMH asthma, COPD?, tobacco abuse, possible alcohol abuse admitted for hypercapneic respiratory failure, hyponatremia, leukocytosis and possible pharyngeal mass. Patient was intubated and sedated. Plan: Neuro: AMS- can be secondary to CO2 narcosis Will get head CT Pt now intubated and sedated on Propofol Neuro check Maintain normothermia Hx of alcohol use from previous notes- but blood alc negative Check UDS CV: HD stable Maintain MAP>65 BNP elevated Will obtain echo Trop 0.03- will trend Resp: Hypercapneic resp failure Possible pharyngeal mass Will get neck CT Intubated on PRVC Hx of asthma and possible COPD Goal SpO2 ~ 94% Solumedrol 40q12 Duoneb filomena and prn HOB elevated, aspiration precaution GI: NPO Heme: Hgb: 12.9 Will continue to monitor CBC and INR Neprho: Hyponatremia Hypovolemic Secondary to renal loses v. SIADH v. beer potomania NS@125 Check BMP q4h Monitor I&O, Daily weights Obtain urine sodium, osmolarity, potassium, creatinine Serum osmolarity Nephro consulted ID: Afebrile, leukocytosis with bands Will start Empiric Rocephin and Vanc Septic work up pending- will check procal, Blood culture, urine culture Endo: Maintain euglycemia GI ppx: Protonix DVT ppx: Heparin SC Case seen, discussed and reviewed with attending. Toro Dutta PGY2 <Robel Conley Q - Last Filed: 11/03/17 01:21> Results - Vital Signs Recent Vital Signs: Last Vital Signs Temp 98.9 F 11/02/17 18:47 Pulse 105 H 11/02/17 18:47 Resp 22 11/02/17 18:47 BP 156/85 H 11/02/17 18:47 Pulse Ox 90 L 11/02/17 18:47 - Labs Result Diagrams: 11/02/17 19:35 11/02/17 19:35 Labs: Laboratory Results - last 24 hr 11/02/17 23:50 pCO2 50 H pO2 115.0 H HCO3 27.6 ABG pH 7.35 ABG Total CO2 29.1 H ABG O2 Saturation 99.8 H ABG O2 Content 14.1 L ABG Base Excess 1.4 ABG Hemoglobin 10.7 L ABG Carboxyhemoglobin 6.3 H POC ABG HHb (Measured) 0.2 ABG Methemoglobin 0.8 ABG O2 Capacity 14.1 L Hgb O2 Saturation 92.7 L FiO2 40.0 Attending/Attestation - Attestation I have personally seen and examined this patient.: Yes I have fully participated in the care of the patient.: Yes I have reviewed all pertinent clinical information: Yes Notes (Text): 11/03/17 01:20 I agree with the above mentioned note and exam by the resident with the addition /exception of the followin52 y/o male with a PMHx ?Asthma/COPD, Htn, Etoh use presented to the ED with shortness of breath. Patient was found to be in hypercapnic respiratory failure unresponsive to Bipap so he was intubated in the ED. Patient was also found to be hyponatremic, which was found when he presented to the hospital 3 weeeks ago as well. At that time he had a normal urine osmolarity and normal urine sodium with a low serum osmolarity which gives concern to SIADH/ hypothyroid/adrenal insufficiency or drug use. Hypercapnic+hypoxic respiratory failure in the setting of likely COPD vs Asthma exacerbation Leukocytosis secondary to steroid use as an outpatient vs infectious etiology ( elevated Bands); U/A without signs of infection; CXR without an obvious infiltrate concerning for PNA; will monitor procalcitonin, blood Cx, sputum Cx, PNA Ag's and asess for fever. Empiric Abx started for now. Hyponatremia/Hypochloremia; will check Q4H BMP to avoid overcorrection of his Sodium; appears to be subacute, given recent discharge from the hospital with a normalized sodium level. Also unclear if hyponatremia is leading the patient to become hypercapnic due to a decreased respiratory drive. Elevated Bnp concerning for left heart failure; will asess with a 2decho to evaluate LVEF/Valvular abnormalities Reported to have a possible mass in his posterior pharynx during intubation; will obtain a noncontrast CT scan of the neck to further evaluate Case discussed at length with Dr. Lees in the ED labs and images available to me thus far have been reviewed total time of care: 60 minutes
[2017-11-02] MEDS: Sodium Chloride 0.9% 1,000 ML IV SCH (22:40)
[2017-11-02] MEDS ORDERED: Azithromycin 500MG/NS 250ml 500 MG/250 ML BAG IVPB STA (23:05)
[2017-11-02] MEDS ORDERED: cefTRIAXone 1 gm 1 GM/100 ML BAG IVPB SCH (23:15)
[2017-11-02] MEDS ORDERED: Midazolam 100 mg/100ml in NS 100 MG/100 ML SOL IV PRN (23:28)
[2017-11-02] MEDS ORDERED: Albuterol 0.083% Inhal Sol (2.5 mg/3 mL) UD IH SCH (23:30)
[2017-11-03 00:05] LABS: ARTERIAL BLOOD GAS HCO3 27.6 mmol/L (21-28); ARTERIAL BLOOD GAS HEMOGLOBIN 10.7 g/dL (11.7-17.4); ARTERIAL BLOOD GAS O2 CAPACITY 14.1 mL/dl (16-24); ARTERIAL BLOOD GAS O2 CONTENT 14.1 ML/dl (15-23); ARTERIAL BLOOD GAS O2 SAT 99.8 % (95-98); ARTERIAL BLOOD GAS PCO2 50 mm/Hg (35-45); ARTERIAL BLOOD GAS PH 7.35 (7.35-7.45); ARTERIAL BLOOD GAS TCO2 29.1 mmol.L (22-28)
[2017-11-03] MEDS ORDERED: Etomidate 20 mg/10ml Inj IVP STA (00:47)
[2017-11-03] MEDS ORDERED: Succinylcholine 200 mg/10 ml Inj IV STA (00:47)
[2017-11-03] MEDS: Fentanyl 1000mcg/100ml NS 1,000 MCG/100 ML BAG IV PRN ×2 (00:50→20:29)
[2017-11-03 01:39] LABS: TROPONIN I 0.05 ng/mL
[2017-11-03 01:46] LABS: BLOOD UREA NITROGEN 8 mg/dL (7-21); CALCIUM 9.2 mg/dL (8.4-10.5); GFR AFRICAN-AMERICAN > 60; GFR NON-AFRICAN AMERICAN > 60
[2017-11-03 02:16] LABS: URINE BILIRUBIN NEGATIVE (NEGATIVE); URINE BLOOD SMALL (NEGATIVE); URINE GLUCOSE (UA) NEGATIVE (NEGATIVE); URINE LEUKOCYTE ESTERASE NEGATIVE Leu/uL (NEGATIVE); URINE NITRATE NEGATIVE (NEGATIVE); URINE PROTEIN TRACE mg/dL (<30 mg/dL); URINE UROBILINOGEN 0.2 E.U./dL (<1 E.U./dL)
[2017-11-03 02:21] LABS: URINE COLOR YELLOW (YELLOW)
[2017-11-03 02:22] LABS: URINE APPEARANCE CLEAR (CLEAR)
[2017-11-03 02:30] LABS: BARBITURATES, UR NEGATIVE (NEGATIVE); OPIATES, UR NEGATIVE (NEGATIVE); PHENCYCLIDINE, UR NEGATIVE (NEGATIVE)
[2017-11-03 02:32] LABS: BENZODIAZEPINES, UR POSITIVE (NEGATIVE)
[2017-11-03 02:40] LABS: URINE EPITHELIAL CELLS 0 - 2 /hpf (0-5); URINE WBC 0 - 2 /hpf (0-6)
--- NOTE | 2017-11-03 03:05 | CT ---
EXAM: CT Head Without Intravenous Contrast EXAM DATE/TIME: 11/02/2017 10:47 PM CLINICAL HISTORY: 52 years old, male; Signs and symptoms; Altered mental status/memory loss; Additional info: AMS TECHNIQUE: Axial computed tomography images of the head/brain without intravenous contrast. All CT scans at this facility use one or more dose reduction techniques, viz.: automated exposure control; ma/kV adjustment per patient size (including targeted exams where dose is matched to indication; i.e. head); or iterative reconstruction technique. Coronal and sagittal reformatted images were created and reviewed. COMPARISON: No relevant prior studies available. FINDINGS: LIMITATIONS: Mild streak/motion artifact. BRAIN: Focal areas of low density in the left basal ganglia, most compatible with old/chronic lacunar infarcts. No significant acute abnormality identified. No acute hemorrhage seen within the brain. No acute extra-axial fluid collections visualized. No evidence of significant mass effect within the brain. VENTRICLES: No evidence of significant hydrocephalus. BONES/JOINTS: No acute fractures or other acute bony abnormality noted. SOFT TISSUES: No acute abnormality of the visualized soft tissues is seen. SINUSES: Scattered opacification of the bilateral ethmoid sinuses. Remaining visualized paranasal sinuses appear clear. MASTOID AIR CELLS: Mastoid air cells appear clear. TUBES, LINES AND DEVICES: Endotracheal and enteric tubes in place. IMPRESSION: - No acute findings seen within the brain. - See above for remaining findings.
--- NOTE | 2017-11-03 03:29 | CT ---
EXAM: CT Neck Without Intravenous Contrast EXAM DATE/TIME: 11/02/2017 10:47 PM CLINICAL HISTORY: 52 years old, male; Signs and symptoms; Mass, lump, or swelling in neck; Additional info: Pharyngeal mass above vocalcords seen on intubatio TECHNIQUE: Axial computed tomography images of the neck without intravenous contrast. All CT scans at this facility use one or more dose reduction techniques, viz.: automated exposure control; ma/kV adjustment per patient size (including targeted exams where dose is matched to indication; i.e. head); or iterative reconstruction technique. Coronal and sagittal reformatted images were created and reviewed. COMPARISON: No relevant prior studies available. FINDINGS: LIMITATIONS: Unenhanced technique. Pharyngeal structures are suboptimally evaluated secondary to adjacent endotracheal and enteric tubes, as well as an jorge-pharyngeal airway NASOPHARYNX: No obvious abnormality in the nasopharyngeal tonsils. OROPHARYNX: No obvious abnormality the palatine tonsils. HYPOPHARYNX: Best seen on images 270- 309 of series 3, there is soft tissue prominence in the supraglottic larynx on the left, and extending superiorly into the left hypopharynx. This is difficult to measure, but measures about 3 cm. LARYNX: See above. TRACHEA: Endotracheal tube in place. No evidence of large obstructing trachea lesions. RETROPHARYNGEAL SPACE: o evidence of prevertebral/retropharyngeal fluid or fluid collection. SUBMANDIBULAR/PAROTID GLANDS: No acute abnormality of the parotid or submandibular glands identified. THYROID: No acute abnormality of the thyroid gland identified. BONES/JOINTS: No evidence of diffuse bony lesions. SOFT TISSUES: No definite evidence of significant cellulitis of the soft tissues. VASCULATURE: No obvious abnormality of the major neck vessels seen. LYMPH NODES: Lymphadenopathy in the left neck, involving the jugulodigastric chain and posterior cervical regions. The largest lymph node, in the left jugulodigastric chain, image 256 of series 3, measures 1.8 cm. LUNG APICES: Mild emphysematous changes in the lung apices. TUBES, LINES AND DEVICES: Endotracheal and enteric tubes in place. Oropharyngeal airway in place. IMPRESSION: - Limited exam, as discussed. Followup CT with IV contrast would be helpful for further evaluation. - Soft tissue prominence in the supraglottic larynx on the left, which extends superiorly into the left hypopharynx. Findings are of uncertain etiology, however, cannot rule out neoplasm, such as squamous cell carcinoma or a benign neoplastic lesion such as laryngeal papillomas. - Lymphadenopathy in the left neck. Neoplastic lymphadenopathy is not excluded. - See above for remaining findings.
[2017-11-03 06:50] LABS: GRAN # 9.02 (1.4-6.5); GRAN % 88.5 % (50.0-68.0); HEMOGLOBIN 12.2 g/dL (14.0-18.0); LYMPH # 0.3 (1.2-3.4); MEAN CELL VOLUME 84.5 fl (80.0-105.0); MEAN CORPUSCULAR HGB CONC 35.6 g/dl (31.0-37.0); MEAN PLATELET VOLUME 9.7 fl (7.0-11.0); MONO # 0.9 (0.1-0.6); MONO % 8.5 % (1.0-6.0); RBC 4.06 10^6/uL (3.5-6.1); RED CELL DISTRIBUTION WIDTH 11.9 % (11.5-14.5); WHITE BLOOD COUNT 10.2 10^3/ul (4.5-11.0)
[2017-11-03] MEDS: Sodium Chloride 0.9% 1,000 ML IV SCH (07:16)
[2017-11-03] MEDS ORDERED: Sodium Chloride 0.9% 1,000 ML IV SCH (09:00)
--- NOTE | 2017-11-03 09:56 | CP.PCM.PN ---
Subjective - Date & Time of Evaluation Date of Evaluation: 11/03/17 Time of Evaluation: 07:00 - Subjective Subjective: Pt seen and examined, remains intubated, sedated. Objective - Vital Signs/Intake and Output Vital Signs (last 24 hours): Temp Pulse Resp BP Pulse Ox 98.9 F 92 H 16 105/66 96 11/02/17 18:47 11/03/17 09:20 11/03/17 09:20 11/03/17 09:00 11/03/17 09:20 Intake and Output: 11/03/17 11/03/17 06:59 18:59 Intake Total 1800 Output Total 1500 Balance 300 - Medications Medications: Current Medications Albuterol Sulfate (Albuterol 0.083% Inhal Snow (2.5 Mg/3 Ml) Ud) 2.5 mg IH Q2H PRN PRN Reason: Shortness of Breath Albuterol Sulfate (Albuterol 0.083% Inhal Snow (2.5 Mg/3 Ml) Ud) 2.5 mg IH [id number] [facility] Last Admin: 11/03/17 08:31 Dose: 2.5 mg Heparin Sodium (Porcine) (Heparin) 5,000 units SC Q12 [facility] PRN Reason: Protocol Vancomycin HCl (Vancomycin 1gm) 1 gm in 250 mls @ 167 mls/hr IVPB DAILY [facility] PRN Reason: Protocol Ceftriaxone Sodium (Rocephin 1 Gram Ivpb) 1 gm in 100 mls @ 100 mls/hr IVPB DAILY [facility] PRN Reason: Protocol Last Admin: 11/03/17 01:14 Dose: 100 mls/hr Azithromycin 250 mg/ Sodium (Chloride) 250 mls @ 167 mls/hr IVPB DAILY [facility] PRN Reason: Protocol Fentanyl Citrate (Fentanyl Citrate/Sodium Chloride 1 Mg/100 Ml) 1,000 mcg in 100 mls @ 2 mls/hr IV .Q24H PRN; Protocol; 20 MCG/HR PRN Reason: TITRATE PER MD ORDER Last Admin: 11/03/17 00:50 Dose: 20 mcg/hr, 2 mls/hr Midazolam 100 mg/100ml in NS (Midazolam 100 Mg/100ml In Ns) 100 mg in 100 mls @ 1 mls/hr IV .Q24H PRN; Protocol; 1 MG/HR PRN Reason: Agitation Last Admin: 02/11/18 00:52 Dose: 1 mg/hr, 1 mls/hr Sodium Chloride (Sodium Chloride 0.9%) 1,000 mls @ 75 mls/hr IV .[id number] [facility] Methylprednisolone (Solu-Medrol) 40 mg IVP Q12 [facility] Pantoprazole Sodium (Protonix Inj) 40 mg IVP DAILY [facility] - Labs Labs: 11/03/17 06:40 11/03/17 01:03 PT 14.2 SECONDS (9.4-12.5) H 11/02/17 19:35 INR 1.24 (0.93-1.08) H 11/02/17 19:35 APTT 28.8 Seconds (25.1-36.5) 11/03/17 06:40 - Constitutional Appears: Non-toxic, No Acute Distress - Eye Exam Eye Exam: Normal appearance - ENT Exam ENT Exam: Mucous Membranes Moist - Respiratory Exam Respiratory Exam: Clear to Ausculation Bilateral, NORMAL BREATHING PATTERN - GI/Abdominal Exam GI & Abdominal Exam: Soft, Normal Bowel Sounds - Extremities Exam Extremities Exam: Normal Inspection Assessment and Plan - Assessment and Plan (Free Text) Assessment: 52yo male with PMhx of smoker, COPD, EtOH abuse, a/w hypercapnic resp failure. Intubated, sedated COPD exacerbation Hypercapnic Resp failure Hyponatremia EtOH abuse - On exam, intubated, sedated, no wheezing, or rales - good oxygenation, ABg acceptable, normalized pH - CXR without focal consolidation, FLU pending - On steroids, IV abx - noted to have laryngeal mass on glidescope examination during intubation, ENT to be consulted Recommend: - cont with ventilatory support, low tidal vol ventilation, ABG acceptable, CXR without focal consolidation, daily CPAP trials - Antibiotics to cover for HCAP - IV steroids, Solumedrol 40mg Q8hr - BP control - Renal consult for hyponatremia - cont with VIF NS @ 75cc/hr - check Ulytes, UA, Cortisol, TSH - MVT, Thiamine, Folic Acid - Ativan PRN - ENT consult for pharyngeal mass - GI ppx - DVT ppx - Stable, Monitor in MICU Critical care time 40 minutes
[2017-11-03] MEDS ORDERED: cefTRIAXone 1 gm 1 GM/100 ML BAG IVPB SCH (10:00)
--- NOTE | 2017-11-03 10:24 | RAD ---
HISTORY: Shortness of breath. COMPARISON: 10/17/2017 FINDINGS: LUNGS: No active pulmonary disease. PLEURA: No significant pleural effusion identified, no pneumothorax apparent. CARDIOVASCULAR: Normal. OSSEOUS STRUCTURES: No significant abnormalities. VISUALIZED UPPER ABDOMEN: Normal. OTHER FINDINGS: None. IMPRESSION: No active disease. No significant interval change compared to the prior examination(s).
--- NOTE | 2017-11-03 10:27 | RAD ---
HISTORY: POST Intubation COMPARISON: November 02, 2017. Time of the most recent examination: 19:38. FINDINGS: LUNGS: No active pulmonary disease. PLEURA: No significant pleural effusion identified, no pneumothorax apparent. CARDIOVASCULAR: Normal. OSSEOUS STRUCTURES: No significant abnormalities. VISUALIZED UPPER ABDOMEN: Normal. OTHER FINDINGS: Endotracheal tube in satisfactory position. Tube tip 3.5 cm from the deuce. IMPRESSION: No active disease. Satisfactory position of recently placed endotracheal tube.
[2017-11-03] MEDS: Azithromycin 250 MG in Sodium Chloride 0.9% 250 ML IVPB SCH (10:34)
[2017-11-03 10:35] LABS: TROPONIN I 0.04 ng/mL
[2017-11-03 10:37] LABS: ALB/GLOB RATIO 1.1 (1.1-1.8); ALBUMIN 3.1 g/dL (3.0-4.8); ALT/SGPT 34 U/L (7-56); AST/SGOT 47 U/L (17-59); BLOOD UREA NITROGEN 7 mg/dL (7-21); CALCIUM 9.2 mg/dL (8.4-10.5); GFR AFRICAN-AMERICAN > 60; GFR NON-AFRICAN AMERICAN > 60; MAGNESIUM 1.7 mg/dL (1.7-2.2)
[2017-11-03] MEDS ORDERED: Magnesium Sulfate 2 GM in Sodium Chloride 0.9% 100 ML IV ONE (10:37)
[2017-11-03 10:38] LABS: BLOOD UREA NITROGEN 7 mg/dL (7-21); CALCIUM 9.2 mg/dL (8.4-10.5); GFR AFRICAN-AMERICAN > 60; GFR NON-AFRICAN AMERICAN > 60
[2017-11-03] MEDS ORDERED: Sodium Chloride 3% 500 ML IV SCH (11:15)
[2017-11-03] MEDS: MethylPREDNISolone 40 mg Vial IVP SCH ×3 (12:00→21:10)
--- NOTE | 2017-11-03 12:11 | CP.PCM.PN ---
<Deidra Fox - Last Filed: 11/03/17 12:33> Subjective - Date & Time of Evaluation Date of Evaluation: 11/03/17 Time of Evaluation: 12:11 - Subjective Subjective: Deidra Fox, PGY1, Medicine Progress Note for Dr Ren: Patient seen and examined at bedside. No acute events overnight. Pt intubated and sedated on propofol and Versed. ROS unobtainable as pt is intubated/sedated. Objective - Vital Signs/Intake and Output Vital Signs (last 24 hours): Temp Pulse Resp BP Pulse Ox 98.9 F 91 H 16 117/76 99 11/02/17 18:47 11/03/17 11:01 11/03/17 11:01 11/03/17 11:00 11/03/17 11:01 Intake and Output: 11/03/17 11/03/17 06:59 18:59 Intake Total 1800 120 Output Total 1500 Balance 300 120 - Medications Medications: Current Medications Albuterol Sulfate (Albuterol 0.083% Inhal Snow (2.5 Mg/3 Ml) Ud) 2.5 mg IH Q2H PRN PRN Reason: Shortness of Breath Albuterol Sulfate (Albuterol 0.083% Inhal Snow (2.5 Mg/3 Ml) Ud) 2.5 mg IH [id number] [facility] Last Admin: 11/03/17 08:31 Dose: 2.5 mg Heparin Sodium (Porcine) (Heparin) 5,000 units SC Q12 [facility] PRN Reason: Protocol Last Admin: 11/03/17 10:26 Dose: 5,000 units Vancomycin HCl (Vancomycin 1gm) 1 gm in 250 mls @ 167 mls/hr IVPB DAILY [facility] PRN Reason: Protocol Azithromycin 250 mg/ Sodium (Chloride) 250 mls @ 167 mls/hr IVPB DAILY [facility] PRN Reason: Protocol Last Admin: 11/03/17 10:34 Dose: 167 mls/hr Fentanyl Citrate (Fentanyl Citrate/Sodium Chloride 1 Mg/100 Ml) 1,000 mcg in 100 mls @ 2 mls/hr IV .Q24H PRN; Protocol; 20 MCG/HR PRN Reason: TITRATE PER MD ORDER Last Titration: 11/03/17 10:22 Dose: 40 mcg/hr, 4 mls/hr Midazolam 100 mg/100ml in NS (Midazolam 100 Mg/100ml In Ns) 100 mg in 100 mls @ 1 mls/hr IV .Q24H PRN; Protocol; 1 MG/HR PRN Reason: Agitation Last Titration: 11/03/17 10:30 Dose: 1 mg/hr, 1 mls/hr Ceftriaxone Sodium (Rocephin 1 Gram Ivpb) 1 gm in 100 mls @ 100 mls/hr IVPB DAILY@2200 [facility] PRN Reason: Protocol Sodium Chloride (Hypertonic Saline 3%) 500 mls @ 30 mls/hr IV .[id number] [facility] Methylprednisolone (Solu-Medrol) 40 mg IVP Q12 [facility] Pantoprazole Sodium (Protonix Inj) 40 mg IVP DAILY [facility] Last Admin: 11/03/17 10:27 Dose: 40 mg - Labs Labs: 11/03/17 06:40 11/03/17 10:20 PT 14.2 SECONDS (9.4-12.5) H 11/02/17 19:35 INR 1.24 (0.93-1.08) H 11/02/17 19:35 APTT 28.8 Seconds (25.1-36.5) 11/03/17 06:40 - Additional Findings Additional findings: - Constitutional Appears: Older Than Stated Age - Head Exam Head Exam: ATRAUMATIC, NORMAL INSPECTION, NORMOCEPHALIC - Eye Exam Eye Exam: Normal appearance, PERRL Pupil Exam: NORMAL ACCOMODATION, PERRL - ENT Exam ENT Exam: Mucous Membranes Dry - Respiratory Exam Respiratory Exam: Wheezes, NORMAL BREATHING PATTERN. absent: Rales, Stridor - Cardiovascular Exam Cardiovascular Exam: REGULAR RHYTHM, +S1, +S2. absent: Gallop, Rubs, Systolic Murmur - GI/Abdominal Exam GI & Abdominal Exam: Normal Bowel Sounds, Soft. absent: Mass, Rebound, Rigid - Extremities Exam Extremities exam: Positive for: normal inspection. Negative for: calf tenderness, pedal edema - Neurological Exam Neurological exam: CN II-XII Intact - Skin Skin Exam: Dry, Warm Additional comments: skin very dry and flaky Assessment and Plan - Assessment and Plan (Free Text) Assessment: 52yo male with PMH asthma, COPD?, tobacco abuse, possible alcohol abuse admitted for hypercapneic respiratory failure, hyponatremia, leukocytosis and possible pharyngeal mass. Patient was intubated and sedated: Hypercapneic hypoxic respiratory failure: 2/2 COPD/asthma vs heart failure vs pharyngeal mass - CT neck soft tissue: soft tissue prominence in supraglottic on left, superiorly into left hypopharynx. Squamous cell carcinoma vs benign lesions - laryngeal papillomas? - ENT consult. F/u recs. - Intubated on prvc - Solumedrol 40 q 12 - Duonebs filomena and prn - hx of asthma and COPD - HOB elevated, aspiration precaution - IV antibiotics Hyponatremia: likely hypovolemic 2/2 dehydration vs vomiting/diarrhea vs beer [place] - NS @100 - Jannette <5 - bmp q6h - Nephro consulted. f/u recs. - Avoid rapid correction AMS: - 2/2 CO2 narcosis - Head CT negative - UDS, ETOH levels neg - Neuro checks - Cont to monitor Indeterminate trops: likely demand ischemia - 0.03->0.05->0.04 - Cardio consult. F/u recs. GI ppx: Protonix DVT ppx: Heparin SC Case seen, discussed and reviewed with attending, Dr Ren. <Francisco J Ren - Last Filed: 11/03/17 15:02> Objective - Vital Signs/Intake and Output Vital Signs (last 24 hours): Temp Pulse Resp BP Pulse Ox 98.9 F 91 H 16 117/76 99 11/02/17 18:47 11/03/17 11:01 11/03/17 11:01 11/03/17 11:00 11/03/17 11:01 Intake and Output: 11/03/17 11/03/17 06:59 18:59 Intake Total 1800 120 Output Total 1500 Balance 300 120 - Medications Medications: Current Medications Albuterol Sulfate (Albuterol 0.083% Inhal Snow (2.5 Mg/3 Ml) Ud) 2.5 mg IH Q2H PRN PRN Reason: Shortness of Breath Albuterol Sulfate (Albuterol 0.083% Inhal Snow (2.5 Mg/3 Ml) Ud) 2.5 mg INH [id number] [facility] Last Admin: 11/03/17 13:27 Dose: 2.5 mg Heparin Sodium (Porcine) (Heparin) 5,000 units SC Q12 [facility] PRN Reason: Protocol Last Admin: 11/03/17 10:26 Dose: 5,000 units Vancomycin HCl (Vancomycin 1gm) 1 gm in 250 mls @ 167 mls/hr IVPB DAILY [facility] PRN Reason: Protocol Last Admin: 11/03/17 12:45 Dose: 167 mls/hr Azithromycin 250 mg/ Sodium (Chloride) 250 mls @ 167 mls/hr IVPB DAILY [facility] PRN Reason: Protocol Last Admin: 11/03/17 10:34 Dose: 167 mls/hr Fentanyl Citrate (Fentanyl Citrate/Sodium Chloride 1 Mg/100 Ml) 1,000 mcg in 100 mls @ 2 mls/hr IV .Q24H PRN; Protocol; 20 MCG/HR PRN Reason: TITRATE PER MD ORDER Last Titration: 11/03/17 10:22 Dose: 40 mcg/hr, 4 mls/hr Midazolam 100 mg/100ml in NS (Midazolam 100 Mg/100ml In Ns) 100 mg in 100 mls @ 1 mls/hr IV .Q24H PRN; Protocol; 1 MG/HR PRN Reason: Agitation Last Titration: 11/03/17 10:30 Dose: 1 mg/hr, 1 mls/hr Ceftriaxone Sodium (Rocephin 1 Gram Ivpb) 1 gm in 100 mls @ 100 mls/hr IVPB DAILY@2200 [facility] PRN Reason: Protocol Dexmedetomidine HCl (Precedex 4 Mcg/Ml (100 Ml)) 400 mcg in 100 mls @ 2.903 mls /hr IV .Q24H PRN; Protocol; 0.2 MCG/KG/HR PRN Reason: Agitation Last Admin: 11/03/17 14:39 Dose: 0.2 mcg/kg/hr, 2.903 mls/hr Dextrose (Dextrose 5% In Water 1000 Ml) 1,000 mls @ 85 mls/hr IV .[id number] [facility] Last Admin: 11/03/17 14:51 Dose: 85 mls/hr Methylprednisolone (Solu-Medrol) 40 mg IVP Q12 [facility] Last Admin: 11/03/17 12:00 Dose: 40 mg Nicotine (Nicoderm Cq) 1 patch TD DAILY [facility] Pantoprazole Sodium (Protonix Inj) 40 mg IVP DAILY [facility] Last Admin: 11/03/17 10:27 Dose: 40 mg - Labs Labs: 11/03/17 06:40 11/03/17 10:20 PT 14.2 SECONDS (9.4-12.5) H 11/02/17 19:35 INR 1.24 (0.93-1.08) H 11/02/17 19:35 APTT 28.8 Seconds (25.1-36.5) 11/03/17 06:40 Attending/Attestation - Attestation I have personally seen and examined this patient.: Yes I have fully participated in the care of the patient.: Yes I have reviewed all pertinent clinical information, including history, physical exam and plan: Yes Notes (Text): 11/03/17 14:57 Patient was seen and examined with electromedical equipment technician.Patient brother is at bed side. Agreed with assessment and plan. 52 yrs old male with PMH of COPD,Alcohol abuse is admitted cops with hypercapnic hypoxic Resp Failure, intubated, Patient is also has hyponatremia NA 114, CT scan of neck shows laryngeal mass, Continue Neb/Steroid and antibiotics. Hyponatremia has corrected quickly, IV fluid has been changed to D 5W, We will monitor.Nephrology is following. ENT is consulted for laryngeal mass Case was discussed with ICU attending.. Management plan was discussed in detail with patient brother . Education was provided.
[2017-11-03 12:16] LABS: IRON 36 ug/dL (45-180)
[2017-11-03 12:25] LABS: % IRON SATURATION 17 % (20-55); TOTAL IRON BINDING CAPACITY 218 ug/dL (261-462)
[2017-11-03 12:42] LABS: OSMOLALITY,URINE 145 mosm/kg (300-1000)
[2017-11-03 12:44] LABS: T3 0.83 ng/mL (0.97-1.69)
[2017-11-03] MEDS: Vancomycin 1gm in NS 250ml 1 GM/250 ML BAG IVPB SCH (12:45)
[2017-11-03] MEDS: Albuterol 0.083% Inhal Sol (2.5 mg/3 mL) UD INH SCH ×2 (13:27→19:26)
[2017-11-03] MEDS: Dexmedetomidine 400mcg/100mL 400 MCG/100 ML BOTTLE IV PRN ×2 (14:39→22:00)
[2017-11-03 16:47] LABS: BLOOD UREA NITROGEN 8 mg/dL (7-21); CALCIUM 8.6 mg/dL (8.4-10.5); GFR AFRICAN-AMERICAN > 60; GFR NON-AFRICAN AMERICAN > 60
[2017-11-03 17:47] VITALS: BMI 17.2
[2017-11-03] MEDS ORDERED: Pneumococcal 23-Valent Vaccine IM ONE (17:47)
[2017-11-03] MEDS ORDERED: Influenza Vaccine 60 mcg/0.5 mL SYR (4YR UP) IM ONE (17:47)
[2017-11-03 19:03] LABS: BLOOD UREA NITROGEN 8 mg/dL (7-21); CALCIUM 8.6 mg/dL (8.4-10.5); GFR AFRICAN-AMERICAN > 60; GFR NON-AFRICAN AMERICAN > 60
[2017-11-03 19:11] LABS: FOLATE 16.5 ng/mL
[2017-11-03 19:15] LABS: TROPONIN I 0.02 ng/mL
--- NOTE | 2017-11-03 20:23 | CARD ---
APPROVED REPORT EKG Measurement Heart [id number] <Conclusion> Sinus rhythm with short DE Voltage criteria for left ventricular hypertrophy ST elevation, consider early repolarization, pericarditis, or injury Prolonged QT Abnormal ECG
[2017-11-03] MEDS: cefTRIAXone 1 gm 1 GM/100 ML BAG IVPB SCH (21:10)
--- NOTE | 2017-11-03 21:38 | CARD ---
APPROVED REPORT EKG Measurement Heart [id number] <Conclusion> Sinus tachycardia ST elevation, consider early repolarization, pericarditis, or injury Abnormal ECG
--- NOTE | 2017-11-03 22:30 | CON ---
DATE: 11/03/[address] for Dr[address] Avelar. REFERRING MD: Lazara Avelar MD. REASON FOR CONSULTATION: Evaluation of the patient unknown to me who presents with an altered mental status, respiratory distress in the setting of severe hyponatremia. HISTORY OF PRESENT ILLNESS: The patient is a 52-year-old white male, unknown to me, history of asthma, history of COPD with exacerbation, previous admission in September with a mild hyponatremia, treated appropriately and resolved. Questionable history of alcohol use. History of anemia. The patient presented to the emergency room with an altered mental status, increased shortness of breath and a sodium level of 114. He was felt to be unstable in the emergency room and he was intubated. The patient is currently seen by me in CCU, bed 1. The patient is currently sedated on fentanyl and Versed. He remains intubated. 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 The patient continues to smoke 1-2 packs per day for many years. We are asked to evaluate the patient for his hyponatremia. Initial studies were done, which showed a urine sodium of less than 5. Urine osmolality is pending. It is likely that he has a depletional hyponatremia. The patient does not use diuretics at home. There is no history from the chart of the patient having any nausea, vomiting or diarrhea. PAST MEDICAL HISTORY: Significant for asthma, history of COPD, history of cigarette smoking, history of mild anemia, past history of mild hyponatremia and history of alcohol use. MEDICATIONS AT HOME: Include that of possible prednisone, Robitussin, vitamins, Asmanex, folic acid, oral Zithromax and albuterol, but compliance is uncertain. ALLERGIES: NO KNOWN ALLERGIES TO MEDICATIONS. CURRENT MEDICATIONS: In hospital include that of albuterol, IV azithromycin, fentanyl, Versed, subcu heparin, Protonix, Rocephin, normal saline 75 mL an hour, Solu-Medrol and vancomycin IV. SOCIAL HISTORY: Positive for cigarette smoking 1 to 2 packs per day for greater than 20 years. History of alcohol use. FAMILY HISTORY: Unobtainable as the patient is intubated. REVIEW OF SYSTEMS: Unobtainable as the patient is intubated. PHYSICAL EXAMINATION: GENERAL: The patient is currently seen in CCU, bed 1. Eyes are closed. He is intubated and sedated. VITAL SIGNS: Blood pressure 105/66, pulse 92, temperature 98.9. Respiratory rate is 16. HEENT: Exam shows him to be normocephalic, atraumatic. Eyes are closed. The patient is intubated. NECK: No neck vein distention. CHEST: Scattered rhonchi bilaterally. No rales or wheezing. CARDIOVASCULAR: Shows a regular rate and rhythm without audible murmurs, rubs or gallops. ABDOMEN: Soft. Nondistended. Bowel sounds are normal. No rebound or guarding or masses. EXTREMITIES: Show no cyanosis, no clubbing or edema. Distal lower extremity pulses are 2+ bilateral. NEURO: Difficult to assess as the patient is sedated and intubated. LABORATORY DATA AND IMAGING: Admitting head CT showed no acute findings. Admitting neck CT showed lymphadenopathy with a supraglottic pharyngeal mass of undetermined etiology. Admitting chest x-ray is pending. Labs: CBC, white blood cell count 18.4, currently it is 10.2; hemoglobin is down from 12.9 to 12.2. Platelet count is stable at 246,000. Coags: PT of 14.2 with a PTT of 32.3. Admitting blood gas showed a pCO2 of 80 with a pH of 7.24 and a pO2 of 72. That was on 40% FIO2. Lactate level was normal. Chemistry showed a sodium of 114 on admission, 115 today. Chloride was 70. CO2 was 36. BUN was 8 with a creatinine of 0.6. Glucose is 183. Calcium was 9.2. Magnesium was low at 1.3. Liver enzymes were normal. CPK is 239 with an MB of 22.8. Troponins were negative, 0.03 and 0.05. BNP was 1300. Albumin was 4.1. Urinalysis was negative. Urine osmolality is pending at the time of dictation. Urine sodium was less than 5. Toxicology screen was positive for benzodiazepines, negative for everything else. Alcohol level was less than 10. Microbiology: No results as of yet. ASSESSMENT: 1. Altered mental status in the setting of severe hyponatremia with a sodium level down to 114. Initial urine sodium is suggestive of a depletional hyponatremia rather than a delusional hyponatremia. Urine osmolality is pending. No past history of thyroid disease. No history of adrenal disease. I will switch the patient over to 3% hypertonic saline at 30 mL an hour with monitoring of his lab work on a q. 12 hour basis with discontinuation of 3% saline once the sodium level rises above 132. 2. History of asthma with chronic obstructive pulmonary disease exacerbation. The patient is a long-time cigarette smoker. The patient will continue inhalation therapy. Because of his increased respiratory distress, he is currently intubated and sedated. 3. 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 This needs further workup by ENT. 4. Mild hypomagnesemia, supplement magnesium level with magnesium riders. 5. Mild anemia. This will likely drop with further intravenous fluid hydration and will likely be dilutional in nature. PLAN: 1. Discussed with the staff in the CCU. I will switch the patient over to 3% saline at 30 mL an hour with monitoring of his sodium level every 12 hours. It appears that he has a depletional hyponatremia as evidenced by his urine sodium of less than 5. The patient does not use diuretic therapy. There is no evidence for GI losses. Urine osmolality is pending. I cannot check an a.m. cortisol level as the patient is on steroids. We will monitor labs on a regular basis. 2. History of asthma with COPD exacerbation. The patient remains on inhalation therapy, is currently intubated secondary to respiratory distress. He is currently on empiric antibiotic therapy. All cultures are pending. 3. History of cigarette smoking, likely the cause of his asthma exacerbation and COPD. 4. Mild anemia. Continue to monitor labs on a regular basis. 5. Mild hypomagnesemia. We will continue to supplement magnesium. The patient received 1 g of magnesium yesterday IV piggyback. I will give him additional magnesium today and we will follow magnesium levels on a regular basis. Greater than 35 minutes spent in the care of this critically ill patient. Magdaleno Shelby MD
[2017-11-03] MEDS: Midazolam 2 MG/2 ML VIAL IVP PRN (23:09)
[2017-11-04 00:36] LABS: BLOOD UREA NITROGEN 8 mg/dL (7-21); CALCIUM 8.8 mg/dL (8.4-10.5); GFR AFRICAN-AMERICAN > 60; GFR NON-AFRICAN AMERICAN > 60
--- NOTE | 2017-11-04 00:36 | CON ---
DATE: 11/03/2017 EAR, NOSE AND THROAT CONSULTATION REFERRING PHYSICIAN: [facility] ICU. REASON FOR CONSULTATION: Possible pharyngeal mass. HISTORY OF PRESENT ILLNESS: Patient is a 52-year-old male with past medical history significant for asthma, possibly COPD, tobacco abuse, alcohol abuse, and previous intravenous drug abuse who was admitted to [facility] yesterday, 11/02/2017 with the complaint of shortness of breath. To note, he was recently admitted to [facility] in September for hyponatremia and respiratory exacerbation from an unknown source and possibly COPD. He was discharged home with prednisone and Zithromax. Upon arrival to the ED last evening, he became lethargic. He was trialed on noninvasive respiratory support in the form of BiPAP, although subsequently decompensated requiring intubation for hypercapnic respiratory failure. Upon intubation, the emergency room physician on GlideScope visualized possibly a posterior pharyngeal mass. He had successful endotracheal tube placed, and he was sent to the ICU for further evaluation and treatment. Otolaryngology Service was consulted for the possible history of pharyngeal mass. The history was gleaned from the medical chart as well as discussion with the ICU staff. PAST MEDICAL HISTORY: As above. MEDICATIONS: Reviewed. ALLERGIES: NO KNOWN DRUG ALLERGIES. SOCIAL HISTORY: Patient presently is a smoker, who smokes 1.5 packs per day for at least 20 to 30 years. He is a former intravenous drug user and drinks 4 to 5 beers per day. 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 REVIEW OF SYSTEMS: Unable to be obtained secondary to the patient's status. PHYSICAL EXAMINATION: VITAL SIGNS: Temperature is 98.9, pulse is 91, blood pressure is 117/76, respiratory rate is 16, and O2 saturation is 99% on 40% FiO2 on the ventilatory support. GENERAL: Patient is a cachectic, ill-appearing 52-year-old male. He appears elder than his stated age. He is noncooperative with the examination. He is on partial sedation. HEENT: Head is atraumatic and normocephalic. Face appears symmetrical. Ears: Auricles are unremarkable bilaterally. There is no mass or lesion noted. Nose: Nares are patent. There is no purulence or epistaxis. Oral cavity/oropharynx: There is an endotracheal tube in place. The lips and buccal mucosa are unremarkable. There is no obvious intraoral mass. NECK: There is possibly some lymphadenopathy level 2 in the left hand side, although it is difficult to assess as the patient is aggressive and thrashing around in the bed. LABORATORY STUDIES: White count is 10.2, hemoglobin is 12.2, platelets are 246. Coagulation profile is unremarkable. Chemistry is significant for sodium of 131, chloride of 88, CO2 of 38, BUN of 8. Urine drug screen is positive for benzodiazepines. RADIOGRAPHIC STUDIES: Patient has a CT of the neck performed without IV contrast on 11/02/2017, which reveals possibly soft tissue prominence in the supraglottic larynx in the left hand side which extended superiorly into the left hypopharynx, although it is difficult to assess without IV contrast and with the presence of the endotracheal tube in place. There is possibly a 2 cm node on the left hand side. ASSESSMENT: Patient is a 52-year-old male with a strong tobacco and alcohol abuse history who is admitted with respiratory failure with possibly pharyngeal mass, on intubation based on documentation from the emergency room. He is currently on ventilatory support with no plans for extubation today. PLAN: The plan would be obviously to have a contrasted CAT scan, although it is difficult to assess for possible tumor given the endotracheal tube that is currently in place. Would recommend extubation per the ICU as his medical status improves, and after extubation and possible flexible fiberoptic laryngoscopy to further evaluate the patient's airway. Upon extubation, we would recommend having a tracheostomy tray at bedside and fiberoptic scope as well as GlideScope in case the patient will need to remain intubated. An Otolaryngology Service would be requested, will be present in the hospital in the afternoon tomorrow, 11/04/2017 and could provide assistance. Otherwise, continue workup and care per the intensive care unit staff. Findings and plan were discussed in detail with the ICU. Thank you for allowing us to participate in this patient's care. Raoul Okeefe DO
[2017-11-04] MEDS: Midazolam 2 MG/2 ML VIAL IVP PRN ×3 (02:16→06:35)
[2017-11-04] MEDS: Albuterol 0.083% Inhal Sol (2.5 mg/3 mL) UD INH SCH ×4 (02:49→20:09)
[2017-11-04] MEDS: Dexmedetomidine 400mcg/100mL 400 MCG/100 ML BOTTLE IV PRN ×4 (03:00→21:50)
[2017-11-04 05:29] LABS: ARTERIAL BLOOD GAS HCO3 30.9 mmol/L (21-28); ARTERIAL BLOOD GAS HEMOGLOBIN 9.9 g/dL (11.7-17.4); ARTERIAL BLOOD GAS O2 CAPACITY 13.8 mL/dl (16-24); ARTERIAL BLOOD GAS O2 CONTENT 13.7 ML/dl (15-23); ARTERIAL BLOOD GAS O2 SAT 99.4 % (95-98); ARTERIAL BLOOD GAS PCO2 37 mm/Hg (35-45); ARTERIAL BLOOD GAS PH 7.53 (7.35-7.45)
[2017-11-04] MEDS: Fentanyl 1000mcg/100ml NS 1,000 MCG/100 ML BAG IV PRN ×2 (05:30→15:59)
[2017-11-04 07:20] LABS: GRAN # 7.66 (1.4-6.5); GRAN % 86.6 % (50.0-68.0); HEMOGLOBIN 11.3 g/dL (14.0-18.0); LYMPH # 0.4 (1.2-3.4); LYMPH % 4.6 % (22.0-35.0); MEAN CELL VOLUME 86.7 fl (80.0-105.0); MEAN CORPUSCULAR HEMOGLOBIN 29.5 pg (25.0-35.0); MEAN PLATELET VOLUME 10.3 fl (7.0-11.0); MONO # 0.8 (0.1-0.6); MONO % 8.8 % (1.0-6.0); RBC 3.83 10^6/uL (3.5-6.1); RED CELL DISTRIBUTION WIDTH 12.6 % (11.5-14.5); WHITE BLOOD COUNT 8.9 10^3/ul (4.5-11.0)
[2017-11-04 07:38] LABS: ALB/GLOB RATIO 1.1 (1.1-1.8); ALT/SGPT 39 U/L (7-56); AST/SGOT 34 U/L (17-59); BLOOD UREA NITROGEN 8 mg/dL (7-21); CALCIUM 8.9 mg/dL (8.4-10.5); GFR AFRICAN-AMERICAN > 60; GFR NON-AFRICAN AMERICAN > 60
--- NOTE | 2017-11-04 07:41 | CP.CCUPN ---
<Kinga Boateng - Last Filed: 11/04/17 11:33> CCU Subjective - Physician Review Events Since Last Encounter (Free Text): 11/04/17 7:00 Patient was intubated and sedated on fentanyl and versed . Patient moves extremities with chest rub. Saturating well on fio2 of 50%. As per nurse patient became agitated, was giving 2 mg q2hr versed prn. 11/04/17 10:16 Patient is s/p extubation to nasal cannula. Patient was agitated, was giving 1 mg ivp of Ativan. Patient became lethargic RR of 6. Was apneac and hard to arouse. Saturation in the 80s of venti mask. 0.3 mg ivp Flumazenil was giving, he became more awake. Patient was placed on bipap at fio2 of 100%, saturating in the 95%. Subjective (Free Text): 11/04/17 11:22 Patient with no complaints. hard to arouse. Critical Care Time Spent (in minutes): 50 CCU Objective - Vital Signs / Intake & Output Vital Signs (Last 4 hours): Vital Signs Temp Pulse Resp BP Pulse Ox 11/04/17 06:00 61 11/04/17 04:50 61 16 96 11/04/17 04:40 64 16 96 11/04/17 04:30 66 16 96 11/04/17 04:20 68 16 97 11/04/17 04:10 72 16 98 11/04/17 04:00 97.7 F 60 16 139/87 96 11/04/17 03:50 61 16 96 Intake and Output (Last 8hrs): Intake & Output 11/03/17 11/04/17 11/04/17 22:59 06:59 14:59 Intake Total 1567 228.0 18 Output Total 2250 Balance -683 228.0 18 Intake: IV 1567 228.0 18 Left Antecubital 1400 Oral 0 Output: Urine 2250 2-way Urethral 2250 Other: # Bowel Movements 0 - Physical Exam Head: Positive for: Atraumatic, Normocephalic Pupils: Positive for: PERRL Extroacular Muscles: Positive for: EOMI Conjunctiva: Positive for: Normal Ears: Positive for: Normal Mouth: Positive for: Moist Mucous Membranes Pharnyx: Positive for: Normal Nose (External): Positive for: Atraumatic Nose (Internal): Positive for: Normal Inspection Neck: Positive for: Normal Range of Motion Respiratory/Chest: Positive for: Rhonchi. Negative for: Tachypneic Cardiovascular: Positive for: Regular Rate and Rhythm, Tachycardic Abdomen: Negative for: Tenderness, Distention, Normal Bowel Sounds, Peritoneal Signs, Rebound, Guarding, McBurney's Point Tender, Rovsing's Sign Present, Hernias, Feeding Tubes, Ostomy Tubes, Mass/Organomegaly, Scars, Other Back: Positive for: Normal Inspection Upper Extremity: Positive for: Normal Inspection Lower Extremity: Positive for: Normal Inspection Neurological: Positive for: Motor Func Grossly Intact, Other (lethargic and hard to arouse. ) Skin: Positive for: Warm, Normal Color Psychiatric: Positive for: Lethargic - Medications Active Medications: Active Medications Generic Name Dose Route Start Last Admin Trade Name Freq PRN Reason Stop Dose Admin Albuterol Sulfate 2.5 mg 11/02/17 21:44 Albuterol 0.083% Inhal Snow (2.5 Mg/3 Ml) Ud IH Q2H PRN Shortness of Breath Albuterol Sulfate 2.5 mg 11/03/17 14:00 11/04/17 02:49 Albuterol 0.083% Inhal Snow (2.5 Mg/3 Ml) Ud INH 2.5 mg [id number] SOLEDAD Administration Heparin Sodium (Porcine) 5,000 units 11/03/17 10:00 11/03/17 21:10 Heparin SC 5,000 units Q12 SOLEDAD Administration Protocol Vancomycin HCl 1 gm in 250 mls @ 167 mls/hr 11/03/17 10:00 11/03/17 12:45 Vancomycin 1gm IVPB 167 mls/hr DAILY SOLEDAD Administration Protocol Azithromycin 250 mg/ Sodium 250 mls @ 167 mls/hr 11/03/17 10:00 11/03/17 10: 34 Chloride IVPB 167 mls/hr DAILY SOLEDAD Administration Protocol Fentanyl Citrate 1,000 mcg in 100 mls @ 2 mls/hr 11/02/17 23:28 11/04/17 05: 30 Fentanyl Citrate/Sodium Chloride 1 Mg/100 Ml IV 150 mcg/hr .Q24H PRN 15 mls/hr TITRATE PER MD ORDER Administration Protocol 20 MCG/HR Midazolam 100 mg/100ml in NS 100 mg in 100 mls @ 1 mls/hr 11/02/17 23:28 08/10 19:09 Midazolam 100 Mg/100ml In Ns IV Infused .Q24H PRN Titration Agitation Protocol 1 MG/HR Ceftriaxone Sodium 1 gm in 100 mls @ 100 mls/hr 11/03/17 10:57 11/03/17 21:10 Rocephin 1 Gram Ivpb IVPB 100 mls/hr DAILY@2200 SOLEDAD Administration Protocol Dexmedetomidine HCl 400 mcg in 100 mls @ 2.903 mls/hr 11/03/17 14:17 07:00 Precedex 4 Mcg/Ml (100 Ml) IV 1.2 mcg/kg/hr .Q24H PRN 17.418 mls/hr Agitation Titration Protocol 0.2 MCG/KG/HR Dextrose 1,000 mls @ 150 mls/hr 11/03/17 18:20 11/04/17 06:42 Dextrose 5% In Water 1000 Ml IV 150 mls/hr .Q6H40M SOLEDAD Administration Methylprednisolone 40 mg 11/03/17 10:00 11/03/17 21:10 Solu-Medrol IVP 40 mg Q12 SOLEDAD Administration Midazolam HCl 2 mg 11/03/17 22:50 11/04/17 06:35 Versed Inj IVP 2 mg Q2H PRN Administration Agitation Nicotine 1 patch 11/04/17 10:00 Nicoderm Cq TD DAILY SOLEDAD Pantoprazole Sodium 40 mg 11/03/17 10:00 11/03/17 10:27 Protonix Inj IVP 40 mg DAILY SOLEDAD Administration - Patient Studies Lab Studies: Lab Studies 11/04/17 11/04/17 11/04/17 Range/Units 05:30 05:30 05:20 WBC 8.9 (4.5-11.0) 10^3/ul RBC 3.83 (3.5-6.1) 10^6/uL Hgb 11.3 L (14.0-18.0) g/dL Hct 33.2 L (42.0-52.0) % MCV 86.7 (80.0-105.0) fl MCH 29.5 (25.0-35.0) pg MCHC 34.0 (31.0-37.0) g/dl RDW 12.6 (11.5-14.5) % Plt Count 267 (120.0-450.0) 10^3/uL MPV 10.3 (7.0-11.0) fl Gran % 86.6 H (50.0-68.0) % Lymph % (Auto) 4.6 L (22.0-35.0) % Beadle % (Auto) 8.8 H (1.0-6.0) % Eos % (Auto) 0.0 L (1.5-5.0) % Baso % (Auto) 0.0 (0.0-3.0) % Gran # 7.66 H (1.4-6.5) Lymph # (Auto) 0.4 L (1.2-3.4) Beadle # (Auto) 0.8 H (0.1-0.6) Eos # (Auto) 0.0 (0.0-0.7) Baso # (Auto) 0.00 (0.0-2.0) K/mm3 pCO2 37 (35-45) mm/Hg pO2 123.0 H (80-100) mm/Hg HCO3 30.9 H (21-28) mmol/L ABG pH 7.53 H (7.35-7.45) ABG Total CO2 32.0 H (22-28) mmol.L ABG O2 Saturation 99.4 H (95-98) % ABG O2 Content 13.7 L (15-23) ML/dl ABG Base Excess 7.7 H (-2.0-3.0) mmol/L ABG Hemoglobin 9.9 L (11.7-17.4) g/dL ABG Carboxyhemoglobin 1.3 (0.5-1.5) % POC ABG HHb (Measured) 0.6 (0-5) % ABG Methemoglobin 1.2 (0.0-3.0) % ABG O2 Capacity 13.8 L (16-24) mL/dl Hgb O2 Saturation 96.9 (95.0-98.0) % FiO2 40.0 % Sodium 129 L (132-148) mmol/L Potassium 3.9 (3.6-5.0) mmol/L Chloride 91 L (98-107) mmol/L Carbon Dioxide 31 (21-33) mmol/L Anion Gap 11 (10-20) BUN 8 (7-21) mg/dL Creatinine 0.5 L (0.8-1.5) mg/dl Est GFR ( Amer) > 60 Est GFR (Non-Af Amer) > 60 Random Glucose 177 H (70-110) mg/dL Calcium 8.9 (8.4-10.5) mg/dL Phosphorus 3.8 (2.5-4.5) mg/dL Magnesium 2.0 (1.7-2.2) mg/dL Iron (45-180) ug/dL TIBC (261-462) ug/dL % Saturation (20-55) % Ferritin ng/mL Total Bilirubin 0.3 (0.2-1.3) mg/dL AST 34 (17-59) U/L ALT 39 (7-56) U/L Alkaline Phosphatase 53 (38-126) U/L Troponin I ng/mL Total Protein 5.6 L (5.8-8.3) g/dL Albumin 3.0 (3.0-4.8) g/dL Globulin 2.6 gm/dL Albumin/Globulin Ratio 1.1 (1.1-1.8) Vitamin B12 (239-931) pg/mL Folate ng/mL Procalcitonin (0.19-0.49) NG/ML Thyroxine (T4) (5.5-11.0) ug/dL Total T3 (0.97-1.69) ng/mL TSH 3rd Generation (0.46-4.68) mIU/mL Urine Osmolality (300-1000) mosm/kg Influenza Typ A,B (EIA) (NEGATIVE) Ur L.pneumophila Ag (NEGATIVE) 11/04/17 11/03/17 11/03/17 Range/Units 00:15 18:50 16:20 WBC (4.5-11.0) 10^3/ul RBC (3.5-6.1) 10^6/uL Hgb (14.0-18.0) g/dL Hct (42.0-52.0) % MCV (80.0-105.0) fl MCH (25.0-35.0) pg MCHC (31.0-37.0) g/dl RDW (11.5-14.5) % Plt Count (120.0-450.0) 10^3/uL MPV (7.0-11.0) fl Gran % (50.0-68.0) % Lymph % (Auto) (22.0-35.0) % Beadle % (Auto) (1.0-6.0) % Eos % (Auto) (1.5-5.0) % Baso % (Auto) (0.0-3.0) % Gran # (1.4-6.5) Lymph # (Auto) (1.2-3.4) Beadle # (Auto) (0.1-0.6) Eos # (Auto) (0.0-0.7) Baso # (Auto) (0.0-2.0) K/mm3 pCO2 (35-45) mm/Hg pO2 (80-100) mm/Hg HCO3 (21-28) mmol/L ABG pH (7.35-7.45) ABG Total CO2 (22-28) mmol.L ABG O2 Saturation (95-98) % ABG O2 Content (15-23) ML/dl ABG Base Excess (-2.0-3.0) mmol/L ABG Hemoglobin (11.7-17.4) g/dL ABG Carboxyhemoglobin (0.5-1.5) % POC ABG HHb (Measured) (0-5) % ABG Methemoglobin (0.0-3.0) % ABG O2 Capacity (16-24) mL/dl Hgb O2 Saturation (95.0-98.0) % FiO2 % Sodium 131 L 131 L 132 (132-148) mmol/L Potassium 3.9 3.8 3.9 (3.6-5.0) mmol/L Chloride 92 L 92 L 92 L (98-107) mmol/L Carbon Dioxide 33 32 34 H (21-33) mmol/L Anion Gap 9 L 11 10 (10-20) BUN 8 8 8 (7-21) mg/dL Creatinine 0.5 L 0.5 L 0.5 L (0.8-1.5) mg/dl Est GFR ( Amer) > 60 > 60 > 60 Est GFR (Non-Af Amer) > 60 > 60 > 60 Random Glucose 159 H 163 H 127 H (70-110) mg/dL Calcium 8.8 8.6 8.6 (8.4-10.5) mg/dL Phosphorus (2.5-4.5) mg/dL Magnesium (1.7-2.2) mg/dL Iron (45-180) ug/dL TIBC (261-462) ug/dL % Saturation (20-55) % Ferritin ng/mL Total Bilirubin (0.2-1.3) mg/dL AST (17-59) U/L ALT (7-56) U/L Alkaline Phosphatase (38-126) U/L Troponin I 0.02 D ng/mL Total Protein (5.8-8.3) g/dL Albumin (3.0-4.8) g/dL Globulin gm/dL Albumin/Globulin Ratio (1.1-1.8) Vitamin B12 (239-931) pg/mL Folate ng/mL Procalcitonin (0.19-0.49) NG/ML Thyroxine (T4) (5.5-11.0) ug/dL Total T3 (0.97-1.69) ng/mL TSH 3rd Generation (0.46-4.68) mIU/mL Urine Osmolality (300-1000) mosm/kg Influenza Typ A,B (EIA) (NEGATIVE) Ur L.pneumophila Ag (NEGATIVE) 11/03/17 11/03/17 11/03/17 Range/Units 15:15 12:50 11:00 WBC (4.5-11.0) 10^3/ul RBC (3.5-6.1) 10^6/uL Hgb (14.0-18.0) g/dL Hct (42.0-52.0) % MCV (80.0-105.0) fl MCH (25.0-35.0) pg MCHC (31.0-37.0) g/dl RDW (11.5-14.5) % Plt Count (120.0-450.0) 10^3/uL MPV (7.0-11.0) fl Gran % (50.0-68.0) % Lymph % (Auto) (22.0-35.0) % Beadle % (Auto) (1.0-6.0) % Eos % (Auto) (1.5-5.0) % Baso % (Auto) (0.0-3.0) % Gran # (1.4-6.5) Lymph # (Auto) (1.2-3.4) Beadle # (Auto) (0.1-0.6) Eos # (Auto) (0.0-0.7) Baso # (Auto) (0.0-2.0) K/mm3 pCO2 (35-45) mm/Hg pO2 (80-100) mm/Hg HCO3 (21-28) mmol/L ABG pH (7.35-7.45) ABG Total CO2 (22-28) mmol.L ABG O2 Saturation (95-98) % ABG O2 Content (15-23) ML/dl ABG Base Excess (-2.0-3.0) mmol/L ABG Hemoglobin (11.7-17.4) g/dL ABG Carboxyhemoglobin (0.5-1.5) % POC ABG HHb (Measured) (0-5) % ABG Methemoglobin (0.0-3.0) % ABG O2 Capacity (16-24) mL/dl Hgb O2 Saturation (95.0-98.0) % FiO2 % Sodium (132-148) mmol/L Potassium (3.6-5.0) mmol/L Chloride (98-107) mmol/L Carbon Dioxide (21-33) mmol/L Anion Gap (10-20) BUN (7-21) mg/dL Creatinine (0.8-1.5) mg/dl Est GFR ( Amer) Est GFR (Non-Af Amer) Random Glucose (70-110) mg/dL Calcium (8.4-10.5) mg/dL Phosphorus (2.5-4.5) mg/dL Magnesium (1.7-2.2) mg/dL Iron 36 L (45-180) ug/dL TIBC 218 L (261-462) ug/dL % Saturation 17 L (20-55) % Ferritin ng/mL Total Bilirubin (0.2-1.3) mg/dL AST (17-59) U/L ALT (7-56) U/L Alkaline Phosphatase (38-126) U/L Troponin I 0.04 ng/mL Total Protein (5.8-8.3) g/dL Albumin (3.0-4.8) g/dL Globulin gm/dL Albumin/Globulin Ratio (1.1-1.8) Vitamin B12 (239-931) pg/mL Folate ng/mL Procalcitonin (0.19-0.49) NG/ML Thyroxine (T4) (5.5-11.0) ug/dL Total T3 (0.97-1.69) ng/mL TSH 3rd Generation (0.46-4.68) mIU/mL Urine Osmolality (300-1000) mosm/kg Influenza Typ A,B (EIA) Negative for flu a/b (NEGATIVE) Ur L.pneumophila Ag (NEGATIVE) 11/03/17 11/03/17 11/03/17 Range/Units 11:00 11:00 10:20 WBC (4.5-11.0) 10^3/ul RBC (3.5-6.1) 10^6/uL Hgb (14.0-18.0) g/dL Hct (42.0-52.0) % MCV (80.0-105.0) fl MCH (25.0-35.0) pg MCHC (31.0-37.0) g/dl RDW (11.5-14.5) % Plt Count (120.0-450.0) 10^3/uL MPV (7.0-11.0) fl Gran % (50.0-68.0) % Lymph % (Auto) (22.0-35.0) % Beadle % (Auto) (1.0-6.0) % Eos % (Auto) (1.5-5.0) % Baso % (Auto) (0.0-3.0) % Gran # (1.4-6.5) Lymph # (Auto) (1.2-3.4) Beadle # (Auto) (0.1-0.6) Eos # (Auto) (0.0-0.7) Baso # (Auto) (0.0-2.0) K/mm3 pCO2 (35-45) mm/Hg pO2 (80-100) mm/Hg HCO3 (21-28) mmol/L ABG pH (7.35-7.45) ABG Total CO2 (22-28) mmol.L ABG O2 Saturation (95-98) % ABG O2 Content (15-23) ML/dl ABG Base Excess (-2.0-3.0) mmol/L ABG Hemoglobin (11.7-17.4) g/dL ABG Carboxyhemoglobin (0.5-1.5) % POC ABG HHb (Measured) (0-5) % ABG Methemoglobin (0.0-3.0) % ABG O2 Capacity (16-24) mL/dl Hgb O2 Saturation (95.0-98.0) % FiO2 % Sodium 131 L (132-148) mmol/L Potassium 4.1 (3.6-5.0) mmol/L Chloride 88 L (98-107) mmol/L Carbon Dioxide 38 H (21-33) mmol/L Anion Gap 8 L (10-20) BUN 7 (7-21) mg/dL Creatinine 0.7 L (0.8-1.5) mg/dl Est GFR ( Amer) > 60 Est GFR (Non-Af Amer) > 60 Random Glucose 106 (70-110) mg/dL Calcium 9.2 (8.4-10.5) mg/dL Phosphorus (2.5-4.5) mg/dL Magnesium (1.7-2.2) mg/dL Iron (45-180) ug/dL TIBC (261-462) ug/dL % Saturation (20-55) % Ferritin 213.0 ng/mL Total Bilirubin (0.2-1.3) mg/dL AST (17-59) U/L ALT (7-56) U/L Alkaline Phosphatase (38-126) U/L Troponin I ng/mL Total Protein (5.8-8.3) g/dL Albumin (3.0-4.8) g/dL Globulin gm/dL Albumin/Globulin Ratio (1.1-1.8) Vitamin B12 418 (239-931) pg/mL Folate 16.5 ng/mL Procalcitonin (0.19-0.49) NG/ML Thyroxine (T4) 7.0 (5.5-11.0) ug/dL Total T3 0.83 L (0.97-1.69) ng/mL TSH 3rd Generation 0.34 L (0.46-4.68) mIU/mL Urine Osmolality (300-1000) mosm/kg Influenza Typ A,B (EIA) (NEGATIVE) Ur L.pneumophila Ag (NEGATIVE) 11/03/17 11/03/17 11/03/17 Range/Units 06:40 06:40 02:00 WBC (4.5-11.0) 10^3/ul RBC (3.5-6.1) 10^6/uL Hgb (14.0-18.0) g/dL Hct (42.0-52.0) % MCV (80.0-105.0) fl MCH (25.0-35.0) pg MCHC (31.0-37.0) g/dl RDW (11.5-14.5) % Plt Count (120.0-450.0) 10^3/uL MPV (7.0-11.0) fl Gran % (50.0-68.0) % Lymph % (Auto) (22.0-35.0) % Beadle % (Auto) (1.0-6.0) % Eos % (Auto) (1.5-5.0) % Baso % (Auto) (0.0-3.0) % Gran # (1.4-6.5) Lymph # (Auto) (1.2-3.4) Beadle # (Auto) (0.1-0.6) Eos # (Auto) (0.0-0.7) Baso # (Auto) (0.0-2.0) K/mm3 pCO2 (35-45) mm/Hg pO2 (80-100) mm/Hg HCO3 (21-28) mmol/L ABG pH (7.35-7.45) ABG Total CO2 (22-28) mmol.L ABG O2 Saturation (95-98) % ABG O2 Content (15-23) ML/dl ABG Base Excess (-2.0-3.0) mmol/L ABG Hemoglobin (11.7-17.4) g/dL ABG Carboxyhemoglobin (0.5-1.5) % POC ABG HHb (Measured) (0-5) % ABG Methemoglobin (0.0-3.0) % ABG O2 Capacity (16-24) mL/dl Hgb O2 Saturation (95.0-98.0) % FiO2 % Sodium 126 L (132-148) mmol/L Potassium 3.8 (3.6-5.0) mmol/L Chloride 82 L (98-107) mmol/L Carbon Dioxide 38 H (21-33) mmol/L Anion Gap 10 (10-20) BUN 7 (7-21) mg/dL Creatinine 0.5 L (0.8-1.5) mg/dl Est GFR ( Amer) > 60 Est GFR (Non-Af Amer) > 60 Random Glucose 108 (70-110) mg/dL Calcium 9.2 (8.4-10.5) mg/dL Phosphorus 2.1 L (2.5-4.5) mg/dL Magnesium 1.7 (1.7-2.2) mg/dL Iron (45-180) ug/dL TIBC (261-462) ug/dL % Saturation (20-55) % Ferritin ng/mL Total Bilirubin 0.7 (0.2-1.3) mg/dL AST 47 (17-59) U/L ALT 34 (7-56) U/L Alkaline Phosphatase 59 (38-126) U/L Troponin I 0.04 ng/mL Total Protein 5.8 (5.8-8.3) g/dL Albumin 3.1 (3.0-4.8) g/dL Globulin 2.7 gm/dL Albumin/Globulin Ratio 1.1 (1.1-1.8) Vitamin B12 (239-931) pg/mL Folate ng/mL Procalcitonin 0.16 L (0.19-0.49) NG/ML Thyroxine (T4) (5.5-11.0) ug/dL Total T3 (0.97-1.69) ng/mL TSH 3rd Generation (0.46-4.68) mIU/mL Urine Osmolality (300-1000) mosm/kg Influenza Typ A,B (EIA) (NEGATIVE) Ur L.pneumophila Ag Negative (NEGATIVE) 11/03/17 Range/Units 00:30 WBC (4.5-11.0) 10^3/ul RBC (3.5-6.1) 10^6/uL Hgb (14.0-18.0) g/dL Hct (42.0-52.0) % MCV (80.0-105.0) fl MCH (25.0-35.0) pg MCHC (31.0-37.0) g/dl RDW (11.5-14.5) % Plt Count (120.0-450.0) 10^3/uL MPV (7.0-11.0) fl Gran % (50.0-68.0) % Lymph % (Auto) (22.0-35.0) % Beadle % (Auto) (1.0-6.0) % Eos % (Auto) (1.5-5.0) % Baso % (Auto) (0.0-3.0) % Gran # (1.4-6.5) Lymph # (Auto) (1.2-3.4) Beadle # (Auto) (0.1-0.6) Eos # (Auto) (0.0-0.7) Baso # (Auto) (0.0-2.0) K/mm3 pCO2 (35-45) mm/Hg pO2 (80-100) mm/Hg HCO3 (21-28) mmol/L ABG pH (7.35-7.45) ABG Total CO2 (22-28) mmol.L ABG O2 Saturation (95-98) % ABG O2 Content (15-23) ML/dl ABG Base Excess (-2.0-3.0) mmol/L ABG Hemoglobin (11.7-17.4) g/dL ABG Carboxyhemoglobin (0.5-1.5) % POC ABG HHb (Measured) (0-5) % ABG Methemoglobin (0.0-3.0) % ABG O2 Capacity (16-24) mL/dl Hgb O2 Saturation (95.0-98.0) % FiO2 % Sodium (132-148) mmol/L Potassium (3.6-5.0) mmol/L Chloride (98-107) mmol/L Carbon Dioxide (21-33) mmol/L Anion Gap (10-20) BUN (7-21) mg/dL Creatinine (0.8-1.5) mg/dl Est GFR ( Amer) Est GFR (Non-Af Amer) Random Glucose (70-110) mg/dL Calcium (8.4-10.5) mg/dL Phosphorus (2.5-4.5) mg/dL Magnesium (1.7-2.2) mg/dL Iron (45-180) ug/dL TIBC (261-462) ug/dL % Saturation (20-55) % Ferritin ng/mL Total Bilirubin (0.2-1.3) mg/dL AST (17-59) U/L ALT (7-56) U/L Alkaline Phosphatase (38-126) U/L Troponin I ng/mL Total Protein (5.8-8.3) g/dL Albumin (3.0-4.8) g/dL Globulin gm/dL Albumin/Globulin Ratio (1.1-1.8) Vitamin B12 (239-931) pg/mL Folate ng/mL Procalcitonin (0.19-0.49) NG/ML Thyroxine (T4) (5.5-11.0) ug/dL Total T3 (0.97-1.69) ng/mL TSH 3rd Generation (0.46-4.68) mIU/mL Urine Osmolality 145 L (300-1000) mosm/kg Influenza Typ A,B (EIA) (NEGATIVE) Ur L.pneumophila Ag (NEGATIVE) Laboratory Results - last 24 hr 11/03/17 11/03/17 11/03/17 00:30 02:00 06:40 WBC RBC Hgb Hct MCV MCH MCHC RDW Plt Count MPV Gran % Lymph % (Auto) Beadle % (Auto) Eos % (Auto) Baso % (Auto) Gran # Lymph # (Auto) Beadle # (Auto) Eos # (Auto) Baso # (Auto) pCO2 pO2 HCO3 ABG pH ABG Total CO2 ABG O2 Saturation ABG O2 Content ABG Base Excess ABG Hemoglobin ABG Carboxyhemoglobin POC ABG HHb (Measured) ABG Methemoglobin ABG O2 Capacity Hgb O2 Saturation FiO2 Sodium Potassium Chloride Carbon Dioxide Anion Gap BUN Creatinine Est GFR ( Amer) Est GFR (Non-Af Amer) Random Glucose Calcium Phosphorus Magnesium Iron TIBC % Saturation Ferritin Total Bilirubin AST ALT Alkaline Phosphatase Troponin I Total Protein Albumin Globulin Albumin/Globulin Ratio Vitamin B12 Folate Procalcitonin 0.16 L Thyroxine (T4) Total T3 TSH 3rd Generation Urine Osmolality 145 L Influenza Typ A,B (EIA) Ur L.pneumophila Ag Negative 11/03/17 11/03/17 11/03/17 06:40 10:20 11:00 WBC RBC Hgb Hct MCV MCH MCHC RDW Plt Count MPV Gran % Lymph % (Auto) Beadle % (Auto) Eos % (Auto) Baso % (Auto) Gran # Lymph # (Auto) Beadle # (Auto) Eos # (Auto) Baso # (Auto) pCO2 pO2 HCO3 ABG pH ABG Total CO2 ABG O2 Saturation ABG O2 Content ABG Base Excess ABG Hemoglobin ABG Carboxyhemoglobin POC ABG HHb (Measured) ABG Methemoglobin ABG O2 Capacity Hgb O2 Saturation FiO2 Sodium 126 L 131 L Potassium 3.8 4.1 Chloride 82 L 88 L Carbon Dioxide 38 H 38 H Anion Gap 10 8 L BUN 7 7 Creatinine 0.5 L 0.7 L Est GFR ( Amer) > 60 > 60 Est GFR (Non-Af Amer) > 60 > 60 Random Glucose 108 106 Calcium 9.2 9.2 Phosphorus 2.1 L Magnesium 1.7 Iron TIBC % Saturation Ferritin Total Bilirubin 0.7 AST 47 ALT 34 Alkaline Phosphatase 59 Troponin I 0.04 Total Protein 5.8 Albumin 3.1 Globulin 2.7 Albumin/Globulin Ratio 1.1 Vitamin B12 Folate Procalcitonin Thyroxine (T4) 7.0 Total T3 0.83 L TSH 3rd Generation 0.34 L Urine Osmolality Influenza Typ A,B (EIA) Ur L.pneumophila Ag 11/03/17 11/03/17 11/03/17 11:00 11:00 12:50 WBC RBC Hgb Hct MCV MCH MCHC RDW Plt Count MPV Gran % Lymph % (Auto) [place]eadle % (Auto) Eos % (Auto) Baso % (Auto) Gran # Lymph # (Auto) [place]eadle # (Auto) Eos # (Auto) Baso # (Auto) pCO2 pO2 HCO3 ABG pH ABG Total CO2 ABG O2 Saturation ABG O2 Content ABG Base Excess ABG Hemoglobin ABG Carboxyhemoglobin POC ABG HHb (Measured) ABG Methemoglobin ABG O2 Capacity Hgb O2 Saturation FiO2 Sodium Potassium Chloride Carbon Dioxide Anion Gap BUN Creatinine Est GFR ( Amer) Est GFR (Non-Af Amer) Random Glucose Calcium Phosphorus Magnesium Iron 36 L TIBC 218 L % Saturation 17 L Ferritin 213.0 Total Bilirubin AST ALT Alkaline Phosphatase Troponin I 0.04 Total Protein Albumin Globulin Albumin/Globulin Ratio Vitamin B12 418 Folate 16.5 Procalcitonin Thyroxine (T4) Total T3 TSH 3rd Generation Urine Osmolality Influenza Typ A,B (EIA) Ur L.pneumophila Ag 11/03/17 11/03/17 11/03/17 15:15 16:20 18:50 WBC RBC Hgb Hct MCV MCH MCHC RDW Plt Count MPV Gran % Lymph % (Auto) [place]eadle % (Auto) Eos % (Auto) Baso % (Auto) Gran # Lymph # (Auto) [place]eadle # (Auto) Eos # (Auto) Baso # (Auto) pCO2 pO2 HCO3 ABG pH ABG Total CO2 ABG O2 Saturation ABG O2 Content ABG Base Excess ABG Hemoglobin ABG Carboxyhemoglobin POC ABG HHb (Measured) ABG Methemoglobin ABG O2 Capacity Hgb O2 Saturation FiO2 Sodium 132 131 L Potassium 3.9 3.8 Chloride 92 L 92 L Carbon Dioxide 34 H 32 Anion Gap 10 11 BUN 8 8 Creatinine 0.5 L 0.5 L Est GFR ( Amer) > 60 > 60 Est GFR (Non-Af Amer) > 60 > 60 Random Glucose 127 H 163 H Calcium 8.6 8.6 Phosphorus Magnesium Iron TIBC % Saturation Ferritin Total Bilirubin AST ALT Alkaline Phosphatase Troponin I 0.02 D Total Protein Albumin Globulin Albumin/Globulin Ratio Vitamin B12 Folate Procalcitonin Thyroxine (T4) Total T3 TSH 3rd Generation Urine Osmolality Influenza Typ A,B (EIA) Negative for flu a/b Ur L.pneumophila Ag 11/04/17 11/04/17 11/04/17 00:15 05:20 05:30 WBC 8.9 RBC 3.83 Hgb 11.3 L Hct 33.2 L MCV 86.7 MCH 29.5 MCHC 34.0 RDW 12.6 Plt Count 267 MPV 10.3 Gran % 86.6 H Lymph % (Auto) 4.6 L [place]eadle % (Auto) 8.8 H Eos % (Auto) 0.0 L Baso % (Auto) 0.0 Gran # 7.66 H Lymph # (Auto) 0.4 L [place]eadle # (Auto) 0.8 H Eos # (Auto) 0.0 Baso # (Auto) 0.00 pCO2 37 pO2 123.0 H HCO3 30.9 H ABG pH 7.53 H ABG Total CO2 32.0 H ABG O2 Saturation 99.4 H ABG O2 Content 13.7 L ABG Base Excess 7.7 H ABG Hemoglobin 9.9 L ABG Carboxyhemoglobin 1.3 POC ABG HHb (Measured) 0.6 ABG Methemoglobin 1.2 ABG O2 Capacity 13.8 L Hgb O2 Saturation 96.9 FiO2 40.0 Sodium 131 L Potassium 3.9 Chloride 92 L Carbon Dioxide 33 Anion Gap 9 L BUN 8 Creatinine 0.5 L Est GFR ( Amer) > 60 Est GFR (Non-Af Amer) > 60 Random Glucose 159 H Calcium 8.8 Phosphorus Magnesium Iron TIBC % Saturation Ferritin Total Bilirubin AST ALT Alkaline Phosphatase Troponin I Total Protein Albumin Globulin Albumin/Globulin Ratio Vitamin B12 Folate Procalcitonin Thyroxine (T4) Total T3 TSH 3rd Generation Urine Osmolality Influenza Typ A,B (EIA) Ur L.pneumophila Ag 11/04/17 05:30 WBC RBC Hgb Hct MCV MCH MCHC RDW Plt Count MPV Gran % Lymph % (Auto) [place]eadle % (Auto) Eos % (Auto) Baso % (Auto) Gran # Lymph # (Auto) [place]eadle # (Auto) Eos # (Auto) Baso # (Auto) pCO2 pO2 HCO3 ABG pH ABG Total CO2 ABG O2 Saturation ABG O2 Content ABG Base Excess ABG Hemoglobin ABG Carboxyhemoglobin POC ABG HHb (Measured) ABG Methemoglobin ABG O2 Capacity Hgb O2 Saturation FiO2 Sodium 129 L Potassium 3.9 Chloride 91 L Carbon Dioxide 31 Anion Gap 11 BUN 8 Creatinine 0.5 L Est GFR ( Amer) > 60 Est GFR (Non-Af Amer) > 60 Random Glucose 177 H Calcium 8.9 Phosphorus 3.8 Magnesium 2.0 Iron TIBC % Saturation Ferritin Total Bilirubin 0.3 AST 34 ALT 39 Alkaline Phosphatase 53 Troponin I Total Protein 5.6 L Albumin 3.0 Globulin 2.6 Albumin/Globulin Ratio 1.1 Vitamin B12 Folate Procalcitonin Thyroxine (T4) Total T3 TSH 3rd Generation Urine Osmolality Influenza Typ A,B (EIA) Ur L.pneumophila Ag Critical Care Progress Note - Ventilator Checklist Head of Bed 30 Degrees: Yes - Extremities/Vascular Does the Patient have a Central Venous Catheter?: No Does the Patient have a Amanda Catheter?: Yes Does the Patient need a Amanda Catheter?: Yes Catheter Insertion Criteria: Patient requires prolonged immobilization - Prophylaxis GI Prophylaxis GI: PPI - Prophylaxis DVT Prophylaxis DVT: Heparin SQ - Nutrition Nutrition: Nutrition Category Date Time Status NPO Diet [DIET] Diets 11/02/17 Breakfast Ordered Assessment/Plan - Assessment and Plan (Free Text) Assessment: Patient is a 52 y/o with PMHx significant for alcohol abuse and copd admitted with hyponatremia and hypercapneic respiratory failure. Patient is s/p extubation to bipap. Plan: Neurology: AMS likely due etoh withdrawal Patient became lethargic after receiving ativa, s/p flumazenil with transient alertness. Will avoid sedatives Monitor mental status. Pulm- Hypercapneic respiratory failure likely due to COPD exacerbation. s/p intubation and extubation, first on nasal canulla, now on bipap. - Continue with bipap to maintain O2 sat above 90%. - Continue with duonebs prn and standing dose. - patient is also on solu medrol - head of bed above 35 degrees - On abx for copd exacerbation Cardio: Patient is hemodynamically stable Will monitor and maintain MAP above 65% echo pending Renal: Hyponatremia - resolved - Will discontinue IVF - Will continue to monitor renal function Endo: Will maintain euglycemia Heme: h/h stable, will continue to monitor ID: - On rocephin/ zithromax/ vanco for copd exacerbation. - Patient had leukocytosis on initial presentation, however resolved. - not febrile, and no growth on cultures. procal is also low. GI: currently NPO due to mental status. On ppi for Gi prophylaxis. Tobacco abuse- nicotine patch DVT prophylaxis: heparin sc. Patient seen, examined and case discussed with Dr Turner. - Date & Time Date: 11/04/17 Time: 09:40 <Freddie Turner - Last Filed: 11/04/17 12:09> CCU Objective - Vital Signs / Intake & Output Vital Signs (Last 4 hours): Vital Signs Pulse 11/04/17 10:30 111 H Intake and Output (Last 8hrs): Intake & Output 11/03/17 11/04/17 11/04/17 22:59 06:59 14:59 Intake Total 1567 2449.0 60 Output Total 2250 1200 Balance -683 1249.0 60 Weight 103 lb 6.4 oz Intake: IV 1567 2449.0 60 Left Antecubital 1400 abx 100 d5 1800 fentanyl 135 precedex 186 Oral 0 Output: Urine 2250 1200 2-way Urethral 2250 1200 Other: # Bowel Movements 0 - Medications Active Medications: Active Medications Generic Name Dose Route Start Last Admin Trade Name Freq PRN Reason Stop Dose Admin Albuterol Sulfate 2.5 mg 11/02/17 21:44 Albuterol 0.083% Inhal Snow (2.5 Mg/3 Ml) Ud IH Q2H PRN Shortness of Breath Albuterol Sulfate 2.5 mg 11/03/17 14:00 11/04/17 08:44 Albuterol 0.083% Inhal Snow (2.5 Mg/3 Ml) Ud INH 2.5 mg [id number] SOLEDAD Administration Heparin Sodium (Porcine) 5,000 units 11/03/17 10:00 11/04/17 09:15 Heparin SC 5,000 units Q12 SOLEDAD Administration Protocol Vancomycin HCl 1 gm in 250 mls @ 167 mls/hr 11/03/17 10:00 11/04/17 09:14 Vancomycin 1gm IVPB 167 mls/hr DAILY SOLEDAD Administration Protocol Azithromycin 250 mg/ Sodium 250 mls @ 167 mls/hr 11/03/17 10:00 11/04/17 11: 38 Chloride IVPB 167 mls/hr DAILY SOLEDAD Administration Protocol Ceftriaxone Sodium 1 gm in 100 mls @ 100 mls/hr 11/03/17 10:57 11/03/17 21:10 Rocephin 1 Gram Ivpb IVPB 100 mls/hr DAILY@2200 SOLEDAD Administration Protocol Methylprednisolone 40 mg 11/03/17 10:00 11/04/17 09:15 Solu-Medrol IVP 40 mg Q12 SOLEDAD Administration Nicotine 1 patch 11/04/17 10:00 11/04/17 09:15 Nicoderm Cq TD 1 patch DAILY SOLEDAD Administration Pantoprazole Sodium 40 mg 11/03/17 10:00 11/04/17 09:15 Protonix Inj IVP 40 mg DAILY SOLEDAD Administration - Patient Studies Lab Studies: Microbiology Studies 11/03/17 08:10 MRSA Culture (Admit) - Final Nose MRSA NOT DETECTED Lab Studies 11/04/17 11/04/17 11/04/17 Range/Units 09:40 05:30 05:30 WBC (4.5-11.0) 10^3/ul RBC (3.5-6.1) 10^6/uL Hgb (14.0-18.0) g/dL Hct (42.0-52.0) % MCV (80.0-105.0) fl MCH (25.0-35.0) pg MCHC (31.0-37.0) g/dl RDW (11.5-14.5) % Plt Count (120.0-450.0) 10^3/uL MPV (7.0-11.0) fl Gran % (50.0-68.0) % Lymph % (Auto) (22.0-35.0) % Beadle % (Auto) (1.0-6.0) % Eos % (Auto) (1.5-5.0) % Baso % (Auto) (0.0-3.0) % Gran # (1.4-6.5) Lymph # (Auto) (1.2-3.4) Beadle # (Auto) (0.1-0.6) Eos # (Auto) (0.0-0.7) Baso # (Auto) (0.0-2.0) K/mm3 APTT 25.0 L (25.1-36.5) Seconds pCO2 (35-45) mm/Hg pO2 (80-100) mm/Hg HCO3 (21-28) mmol/L ABG pH (7.35-7.45) ABG Total CO2 (22-28) mmol.L ABG O2 Saturation (95-98) % ABG O2 Content (15-23) ML/dl ABG Base Excess (-2.0-3.0) mmol/L ABG Hemoglobin (11.7-17.4) g/dL ABG Carboxyhemoglobin (0.5-1.5) % POC ABG HHb (Measured) (0-5) % ABG Methemoglobin (0.0-3.0) % ABG O2 Capacity (16-24) mL/dl Hgb O2 Saturation (95.0-98.0) % FiO2 % Sodium 131 L 129 L (132-148) mmol/L Potassium 4.1 3.9 (3.6-5.0) mmol/L Chloride 91 L 91 L (98-107) mmol/L Carbon Dioxide 34 H 31 (21-33) mmol/L Anion Gap 11 11 (10-20) BUN 9 8 (7-21) mg/dL Creatinine 0.6 L 0.5 L (0.8-1.5) mg/dl Est GFR ( Amer) > 60 > 60 Est GFR (Non-Af Amer) > 60 > 60 Random Glucose 162 H 177 H (70-110) mg/dL Calcium 9.1 8.9 (8.4-10.5) mg/dL Phosphorus 3.8 (2.5-4.5) mg/dL Magnesium 2.0 (1.7-2.2) mg/dL Iron (45-180) ug/dL TIBC (261-462) ug/dL % Saturation (20-55) % Ferritin ng/mL Total Bilirubin 0.3 (0.2-1.3) mg/dL AST 34 (17-59) U/L ALT 39 (7-56) U/L Alkaline Phosphatase 53 (38-126) U/L Troponin I ng/mL Total Protein 5.6 L (5.8-8.3) g/dL Albumin 3.0 (3.0-4.8) g/dL Globulin 2.6 gm/dL Albumin/Globulin Ratio 1.1 (1.1-1.8) Vitamin B12 (239-931) pg/mL Folate ng/mL Procalcitonin (0.19-0.49) NG/ML Thyroxine (T4) (5.5-11.0) ug/dL Total T3 (0.97-1.69) ng/mL TSH 3rd Generation (0.46-4.68) mIU/mL Urine Osmolality (300-1000) mosm/kg Influenza Typ A,B (EIA) (NEGATIVE) Ur L.pneumophila Ag (NEGATIVE) 11/04/17 11/04/17 11/04/17 Range/Units 05:30 05:20 00:15 WBC 8.9 (4.5-11.0) 10^3/ul RBC 3.83 (3.5-6.1) 10^6/uL Hgb 11.3 L (14.0-18.0) g/dL Hct 33.2 L (42.0-52.0) % MCV 86.7 (80.0-105.0) fl MCH 29.5 (25.0-35.0) pg MCHC 34.0 (31.0-37.0) g/dl RDW 12.6 (11.5-14.5) % Plt Count 267 (120.0-450.0) 10^3/uL MPV 10.3 (7.0-11.0) fl Gran % 86.6 H (50.0-68.0) % Lymph % (Auto) 4.6 L (22.0-35.0) % Beadle % (Auto) 8.8 H (1.0-6.0) % Eos % (Auto) 0.0 L (1.5-5.0) % Baso % (Auto) 0.0 (0.0-3.0) % Gran # 7.66 H (1.4-6.5) Lymph # (Auto) 0.4 L (1.2-3.4) Beadle # (Auto) 0.8 H (0.1-0.6) Eos # (Auto) 0.0 (0.0-0.7) Baso # (Auto) 0.00 (0.0-2.0) K/mm3 APTT (25.1-36.5) Seconds pCO2 37 (35-45) mm/Hg pO2 123.0 H (80-100) mm/Hg HCO3 30.9 H (21-28) mmol/L ABG pH 7.53 H (7.35-7.45) ABG Total CO2 32.0 H (22-28) mmol.L ABG O2 Saturation 99.4 H (95-98) % ABG O2 Content 13.7 L (15-23) ML/dl ABG Base Excess 7.7 H (-2.0-3.0) mmol/L ABG Hemoglobin 9.9 L (11.7-17.4) g/dL ABG Carboxyhemoglobin 1.3 (0.5-1.5) % POC ABG HHb (Measured) 0.6 (0-5) % ABG Methemoglobin 1.2 (0.0-3.0) % ABG O2 Capacity 13.8 L (16-24) mL/dl Hgb O2 Saturation 96.9 (95.0-98.0) % FiO2 40.0 % Sodium 131 L (132-148) mmol/L Potassium 3.9 (3.6-5.0) mmol/L Chloride 92 L (98-107) mmol/L Carbon Dioxide 33 (21-33) mmol/L Anion Gap 9 L (10-20) BUN 8 (7-21) mg/dL Creatinine 0.5 L (0.8-1.5) mg/dl Est GFR ( Amer) > 60 Est GFR (Non-Af Amer) > 60 Random Glucose 159 H (70-110) mg/dL Calcium 8.8 (8.4-10.5) mg/dL Phosphorus (2.5-4.5) mg/dL Magnesium (1.7-2.2) mg/dL Iron (45-180) ug/dL TIBC (261-462) ug/dL % Saturation (20-55) % Ferritin ng/mL Total Bilirubin (0.2-1.3) mg/dL AST (17-59) U/L ALT (7-56) U/L Alkaline Phosphatase (38-126) U/L Troponin I ng/mL Total Protein (5.8-8.3) g/dL Albumin (3.0-4.8) g/dL Globulin gm/dL Albumin/Globulin Ratio (1.1-1.8) Vitamin B12 (239-931) pg/mL Folate ng/mL Procalcitonin (0.19-0.49) NG/ML Thyroxine (T4) (5.5-11.0) ug/dL Total T3 (0.97-1.69) ng/mL TSH 3rd Generation (0.46-4.68) mIU/mL Urine Osmolality (300-1000) mosm/kg Influenza Typ A,B (EIA) (NEGATIVE) Ur L.pneumophila Ag (NEGATIVE) 11/03/17 11/03/17 11/03/17 Range/Units 18:50 16:20 15:15 WBC (4.5-11.0) 10^3/ul RBC (3.5-6.1) 10^6/uL Hgb (14.0-18.0) g/dL Hct (42.0-52.0) % MCV (80.0-105.0) fl MCH (25.0-35.0) pg MCHC (31.0-37.0) g/dl RDW (11.5-14.5) % Plt Count (120.0-450.0) 10^3/uL MPV (7.0-11.0) fl Gran % (50.0-68.0) % Lymph % (Auto) (22.0-35.0) % Beadle % (Auto) (1.0-6.0) % Eos % (Auto) (1.5-5.0) % Baso % (Auto) (0.0-3.0) % Gran # (1.4-6.5) Lymph # (Auto) (1.2-3.4) Beadle # (Auto) (0.1-0.6) Eos # (Auto) (0.0-0.7) Baso # (Auto) (0.0-2.0) K/mm3 APTT (25.1-36.5) Seconds pCO2 (35-45) mm/Hg pO2 (80-100) mm/Hg HCO3 (21-28) mmol/L ABG pH (7.35-7.45) ABG Total CO2 (22-28) mmol.L ABG O2 Saturation (95-98) % ABG O2 Content (15-23) ML/dl ABG Base Excess (-2.0-3.0) mmol/L ABG Hemoglobin (11.7-17.4) g/dL ABG Carboxyhemoglobin (0.5-1.5) % POC ABG HHb (Measured) (0-5) % ABG Methemoglobin (0.0-3.0) % ABG O2 Capacity (16-24) mL/dl Hgb O2 Saturation (95.0-98.0) % FiO2 % Sodium 131 L 132 (132-148) mmol/L Potassium 3.8 3.9 (3.6-5.0) mmol/L Chloride 92 L 92 L (98-107) mmol/L Carbon Dioxide 32 34 H (21-33) mmol/L Anion Gap 11 10 (10-20) BUN 8 8 (7-21) mg/dL Creatinine 0.5 L 0.5 L (0.8-1.5) mg/dl Est GFR ( Amer) > 60 > 60 Est GFR (Non-Af Amer) > 60 > 60 Random Glucose 163 H 127 H (70-110) mg/dL Calcium 8.6 8.6 (8.4-10.5) mg/dL Phosphorus (2.5-4.5) mg/dL Magnesium (1.7-2.2) mg/dL Iron (45-180) ug/dL TIBC (261-462) ug/dL % Saturation (20-55) % Ferritin ng/mL Total Bilirubin (0.2-1.3) mg/dL AST (17-59) U/L ALT (7-56) U/L Alkaline Phosphatase (38-126) U/L Troponin I 0.02 D ng/mL Total Protein (5.8-8.3) g/dL Albumin (3.0-4.8) g/dL Globulin gm/dL Albumin/Globulin Ratio (1.1-1.8) Vitamin B12 (239-931) pg/mL Folate ng/mL Procalcitonin (0.19-0.49) NG/ML Thyroxine (T4) (5.5-11.0) ug/dL Total T3 (0.97-1.69) ng/mL TSH 3rd Generation (0.46-4.68) mIU/mL Urine Osmolality (300-1000) mosm/kg Influenza Typ A,B (EIA) Negative for flu a/b (NEGATIVE) Ur L.pneumophila Ag (NEGATIVE) 11/03/17 11/03/17 11/03/17 Range/Units 12:50 11:00 11:00 WBC (4.5-11.0) 10^3/ul RBC (3.5-6.1) 10^6/uL Hgb (14.0-18.0) g/dL Hct (42.0-52.0) % MCV (80.0-105.0) fl MCH (25.0-35.0) pg MCHC (31.0-37.0) g/dl RDW (11.5-14.5) % Plt Count (120.0-450.0) 10^3/uL MPV (7.0-11.0) fl Gran % (50.0-68.0) % Lymph % (Auto) (22.0-35.0) % Beadle % (Auto) (1.0-6.0) % Eos % (Auto) (1.5-5.0) % Baso % (Auto) (0.0-3.0) % Gran # (1.4-6.5) Lymph # (Auto) (1.2-3.4) Beadle # (Auto) (0.1-0.6) Eos # (Auto) (0.0-0.7) Baso # (Auto) (0.0-2.0) K/mm3 APTT (25.1-36.5) Seconds pCO2 (35-45) mm/Hg pO2 (80-100) mm/Hg HCO3 (21-28) mmol/L ABG pH (7.35-7.45) ABG Total CO2 (22-28) mmol.L ABG O2 Saturation (95-98) % ABG O2 Content (15-23) ML/dl ABG Base Excess (-2.0-3.0) mmol/L ABG Hemoglobin (11.7-17.4) g/dL ABG Carboxyhemoglobin (0.5-1.5) % POC ABG HHb (Measured) (0-5) % ABG Methemoglobin (0.0-3.0) % ABG O2 Capacity (16-24) mL/dl Hgb O2 Saturation (95.0-98.0) % FiO2 % Sodium (132-148) mmol/L Potassium (3.6-5.0) mmol/L Chloride (98-107) mmol/L Carbon Dioxide (21-33) mmol/L Anion Gap (10-20) BUN (7-21) mg/dL Creatinine (0.8-1.5) mg/dl Est GFR ( Amer) Est GFR (Non-Af Amer) Random Glucose (70-110) mg/dL Calcium (8.4-10.5) mg/dL Phosphorus (2.5-4.5) mg/dL Magnesium (1.7-2.2) mg/dL Iron 36 L (45-180) ug/dL TIBC 218 L (261-462) ug/dL % Saturation 17 L (20-55) % Ferritin 213.0 ng/mL Total Bilirubin (0.2-1.3) mg/dL AST (17-59) U/L ALT (7-56) U/L Alkaline Phosphatase (38-126) U/L Troponin I 0.04 ng/mL Total Protein (5.8-8.3) g/dL Albumin (3.0-4.8) g/dL Globulin gm/dL Albumin/Globulin Ratio (1.1-1.8) Vitamin B12 418 (239-931) pg/mL Folate 16.5 ng/mL Procalcitonin (0.19-0.49) NG/ML Thyroxine (T4) (5.5-11.0) ug/dL Total T3 (0.97-1.69) ng/mL TSH 3rd Generation (0.46-4.68) mIU/mL Urine Osmolality (300-1000) mosm/kg Influenza Typ A,B (EIA) (NEGATIVE) Ur L.pneumophila Ag (NEGATIVE) 11/03/17 11/03/17 11/03/17 Range/Units 11:00 06:40 02:00 WBC (4.5-11.0) 10^3/ul RBC (3.5-6.1) 10^6/uL Hgb (14.0-18.0) g/dL Hct (42.0-52.0) % MCV (80.0-105.0) fl MCH (25.0-35.0) pg MCHC (31.0-37.0) g/dl RDW (11.5-14.5) % Plt Count (120.0-450.0) 10^3/uL MPV (7.0-11.0) fl Gran % (50.0-68.0) % Lymph % (Auto) (22.0-35.0) % Beadle % (Auto) (1.0-6.0) % Eos % (Auto) (1.5-5.0) % Baso % (Auto) (0.0-3.0) % Gran # (1.4-6.5) Lymph # (Auto) (1.2-3.4) Beadle # (Auto) (0.1-0.6) Eos # (Auto) (0.0-0.7) Baso # (Auto) (0.0-2.0) K/mm3 APTT (25.1-36.5) Seconds pCO2 (35-45) mm/Hg pO2 (80-100) mm/Hg HCO3 (21-28) mmol/L ABG pH (7.35-7.45) ABG Total CO2 (22-28) mmol.L ABG O2 Saturation (95-98) % ABG O2 Content (15-23) ML/dl ABG Base Excess (-2.0-3.0) mmol/L ABG Hemoglobin (11.7-17.4) g/dL ABG Carboxyhemoglobin (0.5-1.5) % POC ABG HHb (Measured) (0-5) % ABG Methemoglobin (0.0-3.0) % ABG O2 Capacity (16-24) mL/dl Hgb O2 Saturation (95.0-98.0) % FiO2 % Sodium (132-148) mmol/L Potassium (3.6-5.0) mmol/L Chloride (98-107) mmol/L Carbon Dioxide (21-33) mmol/L Anion Gap (10-20) BUN (7-21) mg/dL Creatinine (0.8-1.5) mg/dl Est GFR ( Amer) Est GFR (Non-Af Amer) Random Glucose (70-110) mg/dL Calcium (8.4-10.5) mg/dL Phosphorus (2.5-4.5) mg/dL Magnesium (1.7-2.2) mg/dL Iron (45-180) ug/dL TIBC (261-462) ug/dL % Saturation (20-55) % Ferritin ng/mL Total Bilirubin (0.2-1.3) mg/dL AST (17-59) U/L ALT (7-56) U/L Alkaline Phosphatase (38-126) U/L Troponin I ng/mL Total Protein (5.8-8.3) g/dL Albumin (3.0-4.8) g/dL Globulin gm/dL Albumin/Globulin Ratio (1.1-1.8) Vitamin B12 (239-931) pg/mL Folate ng/mL Procalcitonin 0.16 L (0.19-0.49) NG/ML Thyroxine (T4) 7.0 (5.5-11.0) ug/dL Total T3 0.83 L (0.97-1.69) ng/mL TSH 3rd Generation 0.34 L (0.46-4.68) mIU/mL Urine Osmolality (300-1000) mosm/kg Influenza Typ A,B (EIA) (NEGATIVE) Ur L.pneumophila Ag Negative (NEGATIVE) 02/11/18 Range/Units 00:30 WBC (4.5-11.0) 10^3/ul RBC (3.5-6.1) 10^6/uL Hgb (14.0-18.0) g/dL Hct (42.0-52.0) % MCV (80.0-105.0) fl MCH (25.0-35.0) pg MCHC (31.0-37.0) g/dl RDW (11.5-14.5) % Plt Count (120.0-450.0) 10^3/uL MPV (7.0-11.0) fl Gran % (50.0-68.0) % Lymph % (Auto) (22.0-35.0) % Beadle % (Auto) (1.0-6.0) % Eos % (Auto) (1.5-5.0) % Baso % (Auto) (0.0-3.0) % Gran # (1.4-6.5) Lymph # (Auto) (1.2-3.4) Beadle # (Auto) (0.1-0.6) Eos # (Auto) (0.0-0.7) Baso # (Auto) (0.0-2.0) K/mm3 APTT (25.1-36.5) Seconds pCO2 (35-45) mm/Hg pO2 (80-100) mm/Hg HCO3 (21-28) mmol/L ABG pH (7.35-7.45) ABG Total CO2 (22-28) mmol.L ABG O2 Saturation (95-98) % ABG O2 Content (15-23) ML/dl ABG Base Excess (-2.0-3.0) mmol/L ABG Hemoglobin (11.7-17.4) g/dL ABG Carboxyhemoglobin (0.5-1.5) % POC ABG HHb (Measured) (0-5) % ABG Methemoglobin (0.0-3.0) % ABG O2 Capacity (16-24) mL/dl Hgb O2 Saturation (95.0-98.0) % FiO2 % Sodium (132-148) mmol/L Potassium (3.6-5.0) mmol/L Chloride (98-107) mmol/L Carbon Dioxide (21-33) mmol/L Anion Gap (10-20) BUN (7-21) mg/dL Creatinine (0.8-1.5) mg/dl Est GFR ( Amer) Est GFR (Non-Af Amer) Random Glucose (70-110) mg/dL Calcium (8.4-10.5) mg/dL Phosphorus (2.5-4.5) mg/dL Magnesium (1.7-2.2) mg/dL Iron (45-180) ug/dL TIBC (261-462) ug/dL % Saturation (20-55) % Ferritin ng/mL Total Bilirubin (0.2-1.3) mg/dL AST (17-59) U/L ALT (7-56) U/L Alkaline Phosphatase (38-126) U/L Troponin I ng/mL Total Protein (5.8-8.3) g/dL Albumin (3.0-4.8) g/dL Globulin gm/dL Albumin/Globulin Ratio (1.1-1.8) Vitamin B12 (239-931) pg/mL Folate ng/mL Procalcitonin (0.19-0.49) NG/ML Thyroxine (T4) (5.5-11.0) ug/dL Total T3 (0.97-1.69) ng/mL TSH 3rd Generation (0.46-4.68) mIU/mL Urine Osmolality 145 L (300-1000) mosm/kg Influenza Typ A,B (EIA) (NEGATIVE) Ur L.pneumophila Ag (NEGATIVE) Laboratory Results - last 24 hr 11/03/17 11/03/17 11/03/17 00:30 02:00 06:40 WBC RBC Hgb Hct MCV MCH MCHC RDW Plt Count MPV Gran % Lymph % (Auto) Beadle % (Auto) Eos % (Auto) Baso % (Auto) Gran # Lymph # (Auto) Beadle # (Auto) Eos # (Auto) Baso # (Auto) APTT pCO2 pO2 HCO3 ABG pH ABG Total CO2 ABG O2 Saturation ABG O2 Content ABG Base Excess ABG Hemoglobin ABG Carboxyhemoglobin POC ABG HHb (Measured) ABG Methemoglobin ABG O2 Capacity Hgb O2 Saturation FiO2 Sodium Potassium Chloride Carbon Dioxide Anion Gap BUN Creatinine Est GFR ( Amer) Est GFR (Non-Af Amer) Random Glucose Calcium Phosphorus Magnesium Iron TIBC % Saturation Ferritin Total Bilirubin AST ALT Alkaline Phosphatase Troponin I Total Protein Albumin Globulin Albumin/Globulin Ratio Vitamin B12 Folate Procalcitonin 0.16 L Thyroxine (T4) Total T3 TSH 3rd Generation Urine Osmolality 145 L Influenza Typ A,B (EIA) Ur L.pneumophila Ag Negative 11/03/17 11/03/17 11/03/17 11:00 11:00 11:00 WBC RBC Hgb Hct MCV MCH MCHC RDW Plt Count MPV Gran % Lymph % (Auto) Beadle % (Auto) Eos % (Auto) Baso % (Auto) Gran # Lymph # (Auto) Beadle # (Auto) Eos # (Auto) Baso # (Auto) APTT pCO2 pO2 HCO3 ABG pH ABG Total CO2 ABG O2 Saturation ABG O2 Content ABG Base Excess ABG Hemoglobin ABG Carboxyhemoglobin POC ABG HHb (Measured) ABG Methemoglobin ABG O2 Capacity Hgb O2 Saturation FiO2 Sodium Potassium Chloride Carbon Dioxide Anion Gap BUN Creatinine Est GFR ( Amer) Est GFR (Non-Af Amer) Random Glucose Calcium Phosphorus Magnesium Iron 36 L TIBC 218 L % Saturation 17 L Ferritin 213.0 Total Bilirubin AST ALT Alkaline Phosphatase Troponin I Total Protein Albumin Globulin Albumin/Globulin Ratio Vitamin B12 418 Folate 16.5 Procalcitonin Thyroxine (T4) 7.0 Total T3 0.83 L TSH 3rd Generation 0.34 L Urine Osmolality Influenza Typ A,B (EIA) Ur L.pneumophila Ag 11/03/17 11/03/17 11/03/17 12:50 15:15 16:20 WBC RBC Hgb Hct MCV MCH MCHC RDW Plt Count MPV Gran % Lymph % (Auto) Beadle % (Auto) Eos % (Auto) Baso % (Auto) Gran # Lymph # (Auto) Beadle # (Auto) Eos # (Auto) Baso # (Auto) APTT pCO2 pO2 HCO3 ABG pH ABG Total CO2 ABG O2 Saturation ABG O2 Content ABG Base Excess ABG Hemoglobin ABG Carboxyhemoglobin POC ABG HHb (Measured) ABG Methemoglobin ABG O2 Capacity Hgb O2 Saturation FiO2 Sodium 132 Potassium 3.9 Chloride 92 L Carbon Dioxide 34 H Anion Gap 10 BUN 8 Creatinine 0.5 L Est GFR ( Amer) > 60 Est GFR (Non-Af Amer) > 60 Random Glucose 127 H Calcium 8.6 Phosphorus Magnesium Iron TIBC % Saturation Ferritin Total Bilirubin AST ALT Alkaline Phosphatase Troponin I 0.04 Total Protein Albumin Globulin Albumin/Globulin Ratio Vitamin B12 Folate Procalcitonin Thyroxine (T4) Total T3 TSH 3rd Generation Urine Osmolality Influenza Typ A,B (EIA) Negative for flu a/b Ur L.pneumophila Ag 11/03/17 11/04/17 11/04/17 18:50 00:15 05:20 WBC RBC Hgb Hct MCV MCH MCHC RDW Plt Count MPV Gran % Lymph % (Auto) Beadle % (Auto) Eos % (Auto) Baso % (Auto) Gran # Lymph # (Auto) [place]eadle # (Auto) Eos # (Auto) Baso # (Auto) APTT pCO2 37 pO2 123.0 H HCO3 30.9 H ABG pH 7.53 H ABG Total CO2 32.0 H ABG O2 Saturation 99.4 H ABG O2 Content 13.7 L ABG Base Excess 7.7 H ABG Hemoglobin 9.9 L ABG Carboxyhemoglobin 1.3 POC ABG HHb (Measured) 0.6 ABG Methemoglobin 1.2 ABG O2 Capacity 13.8 L Hgb O2 Saturation 96.9 FiO2 40.0 Sodium 131 L 131 L Potassium 3.8 3.9 Chloride 92 L 92 L Carbon Dioxide 32 33 Anion Gap 11 9 L BUN 8 8 Creatinine 0.5 L 0.5 L Est GFR ( Amer) > 60 > 60 Est GFR (Non-Af Amer) > 60 > 60 Random Glucose 163 H 159 H Calcium 8.6 8.8 Phosphorus Magnesium Iron TIBC % Saturation Ferritin Total Bilirubin AST ALT Alkaline Phosphatase Troponin I 0.02 D Total Protein Albumin Globulin Albumin/Globulin Ratio Vitamin B12 Folate Procalcitonin Thyroxine (T4) Total T3 TSH 3rd Generation Urine Osmolality Influenza Typ A,B (EIA) Ur L.pneumophila Ag 11/04/17 11/04/17 11/04/17 05:30 05:30 05:30 WBC 8.9 RBC 3.83 Hgb 11.3 L Hct 33.2 L MCV 86.7 MCH 29.5 MCHC 34.0 RDW 12.6 Plt Count 267 MPV 10.3 Gran % 86.6 H Lymph % (Auto) 4.6 L [place]le % (Auto) 8.8 H Eos % (Auto) 0.0 L Baso % (Auto) 0.0 Gran # 7.66 H Lymph # (Auto) 0.4 L [place] # (Auto) 0.8 H Eos # (Auto) 0.0 Baso # (Auto) 0.00 APTT 25.0 L pCO2 pO2 HCO3 ABG pH ABG Total CO2 ABG O2 Saturation ABG O2 Content ABG Base Excess ABG Hemoglobin ABG Carboxyhemoglobin POC ABG HHb (Measured) ABG Methemoglobin ABG O2 Capacity Hgb O2 Saturation FiO2 Sodium 129 L Potassium 3.9 Chloride 91 L Carbon Dioxide 31 Anion Gap 11 BUN 8 Creatinine 0.5 L Est GFR ( Amer) > 60 Est GFR (Non-Af Amer) > 60 Random Glucose 177 H Calcium 8.9 Phosphorus 3.8 Magnesium 2.0 Iron TIBC % Saturation Ferritin Total Bilirubin 0.3 AST 34 ALT 39 Alkaline Phosphatase 53 Troponin I Total Protein 5.6 L Albumin 3.0 Globulin 2.6 Albumin/Globulin Ratio 1.1 Vitamin B12 Folate Procalcitonin Thyroxine (T4) Total T3 TSH 3rd Generation Urine Osmolality Influenza Typ A,B (EIA) Ur L.pneumophila Ag 11/04/17 09:40 WBC RBC Hgb Hct MCV MCH MCHC RDW Plt Count MPV Gran % Lymph % (Auto) [place]eadle % (Auto) Eos % (Auto) Baso % (Auto) Gran # Lymph # (Auto) [place]le # (Auto) Eos # (Auto) Baso # (Auto) APTT pCO2 pO2 HCO3 ABG pH ABG Total CO2 ABG O2 Saturation ABG O2 Content ABG Base Excess ABG Hemoglobin ABG Carboxyhemoglobin POC ABG HHb (Measured) ABG Methemoglobin ABG O2 Capacity Hgb O2 Saturation FiO2 Sodium 131 L Potassium 4.1 Chloride 91 L Carbon Dioxide 34 H Anion Gap 11 BUN 9 Creatinine 0.6 L Est GFR ( Amer) > 60 Est GFR (Non-Af Amer) > 60 Random Glucose 162 H Calcium 9.1 Phosphorus Magnesium Iron TIBC % Saturation Ferritin Total Bilirubin AST ALT Alkaline Phosphatase Troponin I Total Protein Albumin Globulin Albumin/Globulin Ratio Vitamin B12 Folate Procalcitonin Thyroxine (T4) Total T3 TSH 3rd Generation Urine Osmolality Influenza Typ A,B (EIA) Ur L.pneumophila Ag Critical Care Progress Note - Nutrition Nutrition: Nutrition Category Date Time Status NPO Diet [DIET] Diets 11/02/17 Breakfast Ordered Assessment/Plan - Assessment and Plan (Free Text) Plan: Pt seen and examined, on rounds with resident, agree with note with following additions/exceptions: 52yo male with PMhx of smoker, COPD, EtOH abuse, a/w hypercapnic resp failure, intubated, now extubated. This morning ABG acceptable, wih resp alkalosis, patient placed on CPAP trial for 60minutes, did well, RSBI 20-40, subsequently extubated. Patient then was becoming more agitated, given Ativan 1mg x 1, became apneic, given Flumazenil 0.3mg, with improvement in mental status. Currently on BIPAP, ABG pending. COPD exacerbation Hypercapnic Resp failure Hyponatremia EtOH abuse - CXR without focal consolidation, FLU pending - On steroids, IV abx - noted to have laryngeal mass on glidescope examination during intubation, ENT to be consulted Recommend: - cont with BIPAP, obtain ABG, monitor resp status closely - Antibiotics to cover for HCAP - IV steroids, Solumedrol 40mg Q8hr - BP control - Renal follow up - would DC all fluids, and monitor Na closely, Na 129 - check Ulytes, UA, Cortisol, TSH - MVT, Thiamine, Folic Acid - Ativan PRN - ENT consult for pharyngeal mass - GI ppx - DVT ppx - Stable, Monitor in MICU Critical care time 35 minutes
--- NOTE | 2017-11-04 08:54 | RAD ---
HISTORY: intubated COMPARISON: 11/02/2017. FINDINGS: The endotracheal tube terminates 2.5 cm proximal to the deuce. The nasogastric tube terminates in the stomach. LUNGS: The lungs are well inflated. The right lung is clear. There is a left retrocardiac opacity. PLEURA: Suspect small left pleural effusion, no pneumothorax apparent. CARDIOVASCULAR: Normal. OSSEOUS STRUCTURES: No significant abnormalities. VISUALIZED UPPER ABDOMEN: Normal. OTHER FINDINGS: None. IMPRESSION: Stable position of endotracheal tube. The nasogastric tube terminates in the stomach. Suspect left lower lobe atelectasis/pneumonia and small left pleural effusion. Follow-up is advised.
[2017-11-04] MEDS: Vancomycin 1gm in NS 250ml 1 GM/250 ML BAG IVPB SCH (09:14)
[2017-11-04] MEDS: MethylPREDNISolone 40 mg Vial IVP SCH ×2 (09:15→21:28)
[2017-11-04 10:01] LABS: BLOOD UREA NITROGEN 9 mg/dL (7-21); CALCIUM 9.1 mg/dL (8.4-10.5); GFR AFRICAN-AMERICAN > 60; GFR NON-AFRICAN AMERICAN > 60
[2017-11-04] MEDS ORDERED: Flumazenil 0.1 mg/ml Inj (5ml) IVP STA ×4 (10:14→11:56)
[2017-11-04] MEDS ORDERED: Flumazenil 0.1 mg/ml Inj (5ml) IVP ONE (10:15)
[2017-11-04] MEDS: Azithromycin 250 MG in Sodium Chloride 0.9% 250 ML IVPB SCH (11:38)
[2017-11-04 12:15] LABS: BLOOD UREA NITROGEN 11 mg/dL (7-21); CALCIUM 9.2 mg/dL (8.4-10.5); GFR AFRICAN-AMERICAN > 60; GFR NON-AFRICAN AMERICAN > 60
[2017-11-04] MEDS ORDERED: Propofol 10 mg/ml Inj (20 ML) ONE (12:28)
[2017-11-04] MEDS ORDERED: Etomidate 20 mg/10ml Inj IV ONE (12:29)
[2017-11-04] MEDS ORDERED: Rocuronium 10 mg/ml (5 ml) ONE (12:31)
[2017-11-04 12:35] LABS: ARTERIAL BLOOD GAS HCO3 35.3 mmol/L (21-28); ARTERIAL BLOOD GAS HEMOGLOBIN 13.1 g/dL (11.7-17.4); ARTERIAL BLOOD GAS O2 CAPACITY 17.9 mL/dl (16-24); ARTERIAL BLOOD GAS O2 SAT 95.1 % (95-98); ARTERIAL BLOOD GAS TCO2 39.6 mmol.L (22-28)
[2017-11-04] MEDS ORDERED: Sodium Chloride 0.9% 1,000 ML IV STA ×2 (12:42→13:14)
[2017-11-04 12:44] LABS: ARTERIAL BLOOD GAS PH 7.01 (7.35-7.45)
[2017-11-04 12:45] LABS: ARTERIAL BLOOD GAS PCO2 140 mm/Hg (35-45)
--- NOTE | 2017-11-04 12:51 | CP.PCM.PN ---
Subjective - Date & Time of Evaluation Date of Evaluation: 11/04/17 Time of Evaluation: 12:40 - Subjective Subjective: Patient with worsening mental status, FS 187, ABG obtained 7.01/140/85, worsening CO2 retention. Subsequently intubated via glidescope, 1st pass attempt , tolerated the procedure well. Currently intubated, on PRVC 20/420/40%/5, sat 94%. ABG pending. Family notified. Objective - Vital Signs/Intake and Output Vital Signs (last 24 hours): Temp Pulse Resp BP Pulse Ox 97.7 F 111 H 16 139/87 96 11/04/17 04:00 11/04/17 10:30 11/04/17 04:50 11/04/17 04:00 11/04/17 04:50 Intake and Output: 11/04/17 11/04/17 06:59 18:59 Intake Total 2520.0 60 Output Total 1200 Balance 1320.0 60 - Medications Medications: Current Medications Albuterol Sulfate (Albuterol 0.083% Inhal Snow (2.5 Mg/3 Ml) Ud) 2.5 mg IH Q2H PRN PRN Reason: Shortness of Breath Albuterol Sulfate (Albuterol 0.083% Inhal Snow (2.5 Mg/3 Ml) Ud) 2.5 mg INH [id number] [facility] Last Admin: 11/04/17 08:44 Dose: 2.5 mg Heparin Sodium (Porcine) (Heparin) 5,000 units SC Q12 [facility] PRN Reason: Protocol Last Admin: 11/04/17 09:15 Dose: 5,000 units Vancomycin HCl (Vancomycin 1gm) 1 gm in 250 mls @ 167 mls/hr IVPB DAILY [facility] PRN Reason: Protocol Last Admin: 11/04/17 09:14 Dose: 167 mls/hr Azithromycin 250 mg/ Sodium (Chloride) 250 mls @ 167 mls/hr IVPB DAILY [facility] PRN Reason: Protocol Last Admin: 11/04/17 11:38 Dose: 167 mls/hr Ceftriaxone Sodium (Rocephin 1 Gram Ivpb) 1 gm in 100 mls @ 100 mls/hr IVPB DAILY@2200 [facility] PRN Reason: Protocol Last Admin: 11/03/17 21:10 Dose: 100 mls/hr Sodium Chloride (Sodium Chloride 0.9%) 1,000 mls @ 999 mls/hr IV .Q1H1M STA Stop: 11/04/17 13:42 Methylprednisolone (Solu-Medrol) 40 mg IVP Q12 [facility] Last Admin: 11/04/17 09:15 Dose: 40 mg Nicotine (Nicoderm Cq) 1 patch TD DAILY [facility] Last Admin: 11/04/17 09:15 Dose: 1 patch Pantoprazole Sodium (Protonix Inj) 40 mg IVP DAILY [facility] Last Admin: 11/04/17 09:15 Dose: 40 mg - Labs Labs: 11/04/17 05:30 11/04/17 11:50 PT 14.2 SECONDS (9.4-12.5) H 11/02/17 19:35 INR 1.24 (0.93-1.08) H 11/02/17 19:35 APTT 25.0 Seconds (25.1-36.5) L 11/04/17 05:30
--- NOTE | 2017-11-04 12:52 | PCM.PROC ---
Procedures Attestation:: I certify that I have explained the specified Operation(s) or Procedure(s), risks, benefits and reasonable alternatives to the Patient and/or other person responsible. The opportunity was given to ask questions and all questions answered - Intubation Time Out Performed: Yes Sedative: Etomidate Laryngoscope: Glidescope ET Tube Size: 7.5 ET Tube Secured at Depth: 22cm ET Tube Secured Locarion: Teeth ET Tube Placement Confirmation: Visualized Passing Through Cords, Breath Sounds Equal Bilaterally, No Breath Sounds Over Epigastrum, Confirmation w/Capnometry Patient Tolerated Procedure: Well Procedure Immediate Complications: None
--- NOTE | 2017-11-04 13:33 | CP.PCM.PN ---
<Deidra Fox - Last Filed: 11/04/17 13:29> Subjective - Date & Time of Evaluation Date of Evaluation: 11/04/17 Time of Evaluation: 13:29 - Subjective Subjective: Deidra Fox, PGY1, Medicine Progress Note for Dr Hinojosa: Patient seen and examined at bedside. Pt extubated this morning, with worsening mental status and ABG (pH 7.01 and pCO2 140), requiring re-intubation. No fever , chills, nausea, vomiting, abdominal pain. In the interim between re-intubation , pt was confused. However, he stated that prior to arrival to the hospital on Saturday, pt had not been feeling well with flu like symptoms, and then he became sob, requiring him to come to ED. Pt also stated that he had been vomiting for some time at home. Pt was alert and oriented to person, time, and self. Objective - Vital Signs/Intake and Output Vital Signs (last 24 hours): Temp Pulse Resp BP Pulse Ox 97.7 F 111 H 16 139/87 96 11/04/17 04:00 11/04/17 10:30 11/04/17 04:50 11/04/17 04:00 11/04/17 04:50 Intake and Output: 11/04/17 11/04/17 06:59 18:59 Intake Total 2520.0 60 Output Total 1200 Balance 1320.0 60 - Medications Medications: Current Medications Albuterol Sulfate (Albuterol 0.083% Inhal Snow (2.5 Mg/3 Ml) Ud) 2.5 mg IH Q2H PRN PRN Reason: Shortness of Breath Albuterol Sulfate (Albuterol 0.083% Inhal Snow (2.5 Mg/3 Ml) Ud) 2.5 mg INH [id number] FILOMENA Last Admin: 11/04/17 08:44 Dose: 2.5 mg Heparin Sodium (Porcine) (Heparin) 5,000 units SC Q12 FILOMENA PRN Reason: Protocol Last Admin: 11/04/17 09:15 Dose: 5,000 units Vancomycin HCl (Vancomycin 1gm) 1 gm in 250 mls @ 167 mls/hr IVPB DAILY FILOMENA PRN Reason: Protocol Last Admin: 11/04/17 09:14 Dose: 167 mls/hr Azithromycin 250 mg/ Sodium (Chloride) 250 mls @ 167 mls/hr IVPB DAILY [facility] PRN Reason: Protocol Last Admin: 11/04/17 11:38 Dose: 167 mls/hr Ceftriaxone Sodium (Rocephin 1 Gram Ivpb) 1 gm in 100 mls @ 100 mls/hr IVPB DAILY@2200 [facility] PRN Reason: Protocol Last Admin: 11/03/17 21:10 Dose: 100 mls/hr Sodium Chloride (Sodium Chloride 0.9%) 1,000 mls @ 999 mls/hr IV .Q1H1M STA Stop: 11/04/17 13:42 Last Admin: 11/04/17 13:09 Dose: 999 mls/hr Sodium Chloride (Sodium Chloride 0.9%) 1,000 mls @ 999 mls/hr IV .Q1H1M STA Stop: 11/04/17 14:14 Methylprednisolone (Solu-Medrol) 40 mg IVP Q12 [facility] Last Admin: 11/04/17 09:15 Dose: 40 mg Nicotine (Nicoderm Cq) 1 patch TD DAILY [facility] Last Admin: 11/04/17 09:15 Dose: 1 patch Pantoprazole Sodium (Protonix Inj) 40 mg IVP DAILY [facility] Last Admin: 11/04/17 09:15 Dose: 40 mg - Labs Labs: 11/04/17 05:30 11/04/17 11:50 PT 14.2 SECONDS (9.4-12.5) H 11/02/17 19:35 INR 1.24 (0.93-1.08) H 11/02/17 19:35 APTT 25.0 Seconds (25.1-36.5) L 11/04/17 05:30 - Constitutional Appears: In Acute Distress, Confused - Head Exam Head Exam: absent: ATRAUMATIC, NORMOCEPHALIC - Eye Exam Eye Exam: PERRL. absent: Conjunctival injection, Nystagmus, Scleral icterus Pupil Exam: PERRL. absent: Fixed, Irregular, Unequal - ENT Exam ENT Exam: Mucous Membranes Dry - Neck Exam Neck Exam: Full ROM - Respiratory Exam Respiratory Exam: Decreased Breath Sounds, Rhonchi, Respiratory Distress. absent: Rales, Wheezes, Stridor - Cardiovascular Exam Cardiovascular Exam: RRR, +S1, +S2. absent: Murmur - GI/Abdominal Exam GI & Abdominal Exam: Soft, Normal Bowel Sounds. absent: Distended, Firm, Tenderness, Mass, Rebound - Extremities Exam Extremities Exam: Normal Inspection. absent: Calf Tenderness, Pedal Edema - Neurological Exam Neurological Exam: Altered - Skin Skin Exam: Dry, Normal Color, Warm Assessment and Plan - Assessment and Plan (Free Text) Assessment: 52 yo male with PMH asthma, COPD?, tobacco abuse, possible alcohol abuse admitted for hypercapneic respiratory failure, hyponatremia, leukocytosis and possible pharyngeal mass. Patient failed extubation today, hyponatremia resolving with appropriate fluid correction, indeterminate trops, f/u cardio c/s : Hypercapneic respiratory failure: 2/2 COPD/asthma vs heart failure vs pharyngeal mass (less likely) - CT neck soft tissue: soft tissue prominence in supraglottic on left, superiorly into left hypopharynx. Squamous cell carcinoma vs benign lesions - laryngeal papillomas? - ENT consult. F/u recs. - Intubated on prvc - Solumedrol 40 q 12 - Duonebs filomena and prn - hx of asthma and COPD - HOB elevated, aspiration precaution - IV antibiotics Hyponatremia: likely hypovolemic 2/2 dehydration vs vomiting/diarrhea vs beer [place] - resolved - Jannette <5 - bmp q6h - Nephro consulted. f/u recs. AMS: - 2/2 CO2 narcosis - Head CT negative - UDS, ETOH levels neg - Neuro checks - Cont to monitor Anemia, mild: - likely mixed: iron deficiency and ACD - Fe low, tibc low, percent sat low, normal ferritin - Cont to monitor Indeterminate trops: likely demand ischemia - 0.03->0.05->0.04 - Cardio consult. F/u recs. Alcohol withdrawal: - on precedex drip Tobacco abuse: - Nicotine patch GI ppx: Protonix DVT ppx: Heparin SC <Casey Hinojosa - Last Filed: 11/04/17 14:54> Objective - Vital Signs/Intake and Output Vital Signs (last 24 hours): Temp Pulse Resp BP Pulse Ox 97.7 F 111 H 16 139/87 96 11/04/17 04:00 11/04/17 10:30 11/04/17 04:50 11/04/17 04:00 11/04/17 04:50 Intake and Output: 11/04/17 11/04/17 06:59 18:59 Intake Total 2520.0 60 Output Total 1200 Balance 1320.0 60 - Medications Medications: Current Medications Albuterol Sulfate (Albuterol 0.083% Inhal Snow (2.5 Mg/3 Ml) Ud) 2.5 mg IH Q2H PRN PRN Reason: Shortness of Breath Albuterol Sulfate (Albuterol 0.083% Inhal Snow (2.5 Mg/3 Ml) Ud) 2.5 mg INH [id number] [facility] Last Admin: 11/04/17 13:33 Dose: 2.5 mg Heparin Sodium (Porcine) (Heparin) 5,000 units SC Q12 [facility] PRN Reason: Protocol Last Admin: 11/04/17 09:15 Dose: 5,000 units Azithromycin 250 mg/ Sodium (Chloride) 250 mls @ 167 mls/hr IVPB DAILY [facility] PRN Reason: Protocol Last Admin: 11/04/17 11:38 Dose: 167 mls/hr Ceftriaxone Sodium (Rocephin 1 Gram Ivpb) 1 gm in 100 mls @ 100 mls/hr IVPB DAILY@2200 [facility] PRN Reason: Protocol Last Admin: 11/03/17 21:10 Dose: 100 mls/hr Dexmedetomidine HCl (Precedex 4 Mcg/Ml (100 Ml)) 400 mcg in 100 mls @ 2.345 mls /hr IV .Q24H PRN; Protocol; 0.2 MCG/KG/HR PRN Reason: Agitation Fentanyl Citrate (Fentanyl Citrate/Sodium Chloride 1 Mg/100 Ml) 1,000 mcg in 100 mls @ 2 mls/hr IV .Q24H PRN; Protocol; 20 MCG/HR PRN Reason: TITRATE PER MD ORDER Methylprednisolone (Solu-Medrol) 40 mg IVP Q12 [facility] Last Admin: 11/04/17 09:15 Dose: 40 mg Nicotine (Nicoderm Cq) 1 patch TD DAILY [facility] Last Admin: 11/04/17 09:15 Dose: 1 patch Pantoprazole Sodium (Protonix Inj) 40 mg IVP DAILY [facility] Last Admin: 11/04/17 09:15 Dose: 40 mg - Labs Labs: 11/04/17 05:30 11/04/17 11:50 PT 14.2 SECONDS (9.4-12.5) H 11/02/17 19:35 INR 1.24 (0.93-1.08) H 11/02/17 19:35 APTT 25.0 Seconds (25.1-36.5) L 11/04/17 05:30 Attending/Attestation - Attestation I have personally seen and examined this patient.: Yes I have fully participated in the care of the patient.: Yes I have reviewed all pertinent clinical information, including history, physical exam and plan: Yes Notes (Text): 11/04/17 14:51 52 year old male with past medical history of COPD and alcohol abuse who presented with hypercapnic respiratory failure s/p intubation. He was extubated earlier this morning however re-intubated shortly after. Continue with duonebs, antibiotics and iv steroids. CT neck showed laryngeal mass for which ENT is following. Hyponatremia has improved since admission. Nephrology is following. Casey Hinojosa MD Hospitalist.
[2017-11-04 14:12] LABS: ARTERIAL BLOOD GAS HCO3 26.5 mmol/L (21-28); ARTERIAL BLOOD GAS HEMOGLOBIN 9.9 g/dL (11.7-17.4); ARTERIAL BLOOD GAS O2 CAPACITY 13.5 mL/dl (16-24); ARTERIAL BLOOD GAS O2 CONTENT 12.7 ML/dl (15-23); ARTERIAL BLOOD GAS O2 SAT 94.1 % (95-98); ARTERIAL BLOOD GAS PCO2 40 mm/Hg (35-45); ARTERIAL BLOOD GAS PH 7.43 (7.35-7.45); ARTERIAL BLOOD GAS TCO2 27.7 mmol.L (22-28)
--- NOTE | 2017-11-04 14:51 | RAD ---
HISTORY: s/p intubation COMPARISON: 11/04/2017 FINDINGS: The endotracheal tube terminates 3.5 cm proximal to the deuce. LUNGS: The lungs are well inflated and clear. PLEURA: No significant pleural effusion identified, no pneumothorax apparent. CARDIOVASCULAR: Normal. OSSEOUS STRUCTURES: No significant abnormalities. VISUALIZED UPPER ABDOMEN: Normal. OTHER FINDINGS: None. IMPRESSION: Endotracheal tube terminates 3.5 cm proximal to the deuce. No acute findings.
[2017-11-04 16:40] LABS: BLOOD UREA NITROGEN 11 mg/dL (7-21); CALCIUM 8.6 mg/dL (8.4-10.5); GFR AFRICAN-AMERICAN > 60; GFR NON-AFRICAN AMERICAN > 60
--- NOTE | 2017-11-04 18:49 | PN ---
DATE: 11/04/2017 SUBJECTIVE: This patient is seen in the ICU. The patient had been extubated yesterday, but he was not tolerating it. He was reintubated 2 hours ago. Currently, he is sedated. PHYSICAL EXAMINATION: GENERAL: Elderly male, lying in bed in the ICU. VITAL SIGNS: Blood pressure 139/87, heart rate 111, respiratory rate 16, temperature 97.7, and T max is 99.8. HEENT: Normocephalic, atraumatic, positive pallor. NECK: Supple, no JVD. LUNGS: Bilateral equal air entry, bilateral equal expansion, no rales. CARDIAC: S1, S2, regular rate and rhythm, no murmur, no rub. ABDOMEN: Distended, soft, nontender, bowel sounds present. EXTREMITIES: Dry skin, no cracked he use, no edema. INTAKE AND OUTPUT: 4165/3450 LABORATORY DATA: WBC 8.9, hemoglobin 11.3, hematocrit 33, and platelets 267. Sodium 132, potassium 4.2, chloride 190, CO2 of 36. BUN 11, creatinine 0.8. Glucose 202. Calcium 9.2. Albumin 3.0. Blood gas after intubation, pH 7.4, pCO2 of 40, pO2 of 54. Urinalysis: Yellow, clear, pH 6.0, specific gravity 1.010, protein trace, blood trace, U osmolality 145, urine creatinine 24, sodium less than 5. Urine toxicology negative. Influenza negative. Cultures no growth. CT of the neck: Soft tissue prominence in the supraglottic larynx, lymphadenopathy in the left neck. CURRENT MEDICATIONS: DuoNeb, azithromycin, heparin, Precedex, Protonix, Rocephin, and Solu-Medrol. ASSESSMENT: 1. Respiratory failure, hypercapnic respiratory acidosis. 2. Altered mental status. 3. Resolving severe hyponatremia. 4. History of chronic obstructive pulmonary disease. 5. Supraglottic mass with lymphadenopathy. 6. Hypomagnesemia. 7. Anemia. PLAN: 1. Avoid further correction of sodium at the present time. Sodium of 132 is acceptable. 2. Continue ventilator management. 3. ENT followup. 4. Continue respiratory treatments. 5. Continue empiric antibiotics. Case discussed with ICU staff at length. More than 35 minutes spent in the care of this critically ill patient. Natasha Duncan MD [facility] # [id number]
--- NOTE | 2017-11-04 20:00 | PN ---
DATE: 11/04/2017 SUBJECTIVE: The patient is seen and examined with family members at the bedside. The patient had been extubated earlier this morning; however, within several hours of extubation, he developed hypercapnic respiratory failure and required reintubation. During the reintubation, again a lesion in the supraglottis on the right hand side was noted and seemed to be obstructing the airway; however, an endotracheal tube was passed easily. The patient has been intubated and sedated since then. Discussion with the family was had at the bedside, in regards to how to proceed with visualizing and possibly biopsying this lesion. OBJECTIVE: VITAL SIGNS: Temperature is 98.7, pulse rate 76, blood pressure 144/88, respirations 16, O2 sat is 100% on the ventilator. GENERAL: He is awake, but sedated, intubated. Follows commands and is able to understand. HEENT: Head is atraumatic, normocephalic. Eyes: Pupils equal, round, reactive to light. Mouth: Oral cavity is dry. Size [address]. NECK: It is supple, nontender. There is palpable lymphadenopathy. The largest at level 2 on the left hand side with additional supraclavicular and submental lymphadenopathy on the left hand side. No palpable lymphadenopathy on the right hand side. LUNGS: Respirations are mechanical. LABORATORY DATA: White blood cell count is 8.9, hemoglobin 11.3, hematocrit 33.2, platelets are 267. Sodium 133, potassium 4.2, chloride 96, bicarb 29, BUN 11, creatinine 0.7, glucose 119. IMAGING: No new imaging. However, there is a soft tissue CT neck from 11/02/2017, which has already been reviewed. ASSESSMENT AND PLAN: A 52-year-old male, past medical history of asthma, chronic obstructive pulmonary disease, tobacco abuse, alcohol abuse, who is currently admitted to the Intensive Care Unit for hypercapnic respiratory failure. Given that this mass in the glottis has been seen twice now during intubation, at some point the patient will require a biopsy. Plan of whether to scope the patient if he is able to be extubated and biopsy the mass once he is extubated versus a direct laryngoscopy with a tracheostomy at the same time were discussed with the Intensive Care Unit and the family. Exact plan is still to be determined. However, definitely need to have biopsy of the mass at some point. In addition, he will require a CT head and neck with contrast if he is able to be extubated. Otherwise, the care is as per the Intensive Care Unit. We will continue to follow. Raoul Okeefe DO
[2017-11-04] MEDS: cefTRIAXone 1 gm 1 GM/100 ML BAG IVPB SCH (21:28)
[2017-11-04] MEDS: Ammonium Lactate 12% Lotion (225 g) EXT SCH (21:44)
[2017-11-05] MEDS: Albuterol 0.083% Inhal Sol (2.5 mg/3 mL) UD INH SCH ×4 (01:16→20:10)
--- NOTE | 2017-11-05 01:23 | CON ---
DATE: CARDIOLOGY CONSULTATION REASON FOR CONSULTATION: Respiratory failure and abnormal EKG. HISTORY OF PRESENT ILLNESS: The patient is a 52-year-old male who is a heavy smoker and heavy EtOH abuser, presents because of shortness of breath that required intubation and mechanical ventilation. Following extubation, the patient required re-intubation again in the ICU. According to the who was at the bedside, the patient has no known prior cardiac history. He lost his medical followup because of insurance issues. There was no known neck mass to the patient or his and the patient denies any recent loss of weight. SOCIAL HISTORY: Patient is a smoker and drinker heavily. 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 MEDICATIONS: Albuterol inhaler, Zithromax 250 mg intravenously daily, fentanyl infusion, heparin 5000 units subcutaneous twice a day, Nicoderm patch, Protonix 40 mg intravenously daily, Rocephin 1 g intravenously daily, Solu-Medrol 40 mg intravenously q.12 hours, normal saline infusion. PHYSICAL EXAMINATION: GENERAL: The patient is a middle-aged male who is currently sedated on a vent. VITAL SIGNS: Blood pressure 139/87, heart rate 68, temperature 97.7, respirations 16. HEENT: Normocephalic. CHEST: Bilateral rhonchi. HEART: S1, S2 regular. EXTREMITIES: No edema. LABORATORY DATA: Hemoglobin and hematocrit are 11.3 and 33.2. White count and platelet count today are within normal limits. INR on admission is 1.24. PTT is 32.3. Today's SMA-7: Sodium 132, potassium 4.2, chloride 90, CO2 of 36, glucose 202, BUN 11, and creatinine 0.8. EKG revealed sinus rhythm with short NV, voltage criteria for LVH, ST elevation, consider early repolarization, pericarditis or injury pattern. Prolonged QT interval. That was today's EKG. Troponin was 0.03, 0.05, and 0.04. Urine drug screen is positive for benzodiazepines. Serology for influenza type A and B as well as pneumophila antigen are negative. Chest x-ray revealed COPD picture; otherwise, it was unremarkable. Endotracheal tube in appropriate position. Neck soft-tissue CAT scan, soft tissue prominence in the supraglottic larynx on the left which extends superiorly into the left hypopharynx, findings of uncertain etiology; however, cannot rule out neoplasm such as squamous cell carcinoma or benign neoplastic lesion. Lymphadenopathy in the left neck. Neoplastic lymphadenopathy is not excluded. ASSESSMENT: 1. Respiratory failure. 2. Rule out laryngeal carcinoma. 3. Chronic obstructive lung disease. 4. Abnormal EKG with ST elevation pericarditis versus injury. RECOMMENDATIONS: Continue current bronchodilators. Continue subcutaneous heparin. Continue IV Rocephin and IV Zithromax. Unlikely that the patient has acute myocardial injury in this scenario. Consider ENT consultation. Obtain a bedside echocardiogram. Finn Daley MD
[2017-11-05] MEDS: Dexmedetomidine 400mcg/100mL 400 MCG/100 ML BOTTLE IV PRN ×2 (05:01→11:58)
[2017-11-05 05:48] LABS: ARTERIAL BLOOD GAS HCO3 28.4 mmol/L (21-28); ARTERIAL BLOOD GAS HEMOGLOBIN 10.4 g/dL (11.7-17.4); ARTERIAL BLOOD GAS O2 CAPACITY 14.7 mL/dl (16-24); ARTERIAL BLOOD GAS O2 CONTENT 14.6 ML/dl (15-23); ARTERIAL BLOOD GAS O2 SAT 99.6 % (95-98); ARTERIAL BLOOD GAS PCO2 39 mm/Hg (35-45); ARTERIAL BLOOD GAS PH 7.47 (7.35-7.45); ARTERIAL BLOOD GAS TCO2 29.6 mmol.L (22-28)
[2017-11-05] MEDS ORDERED: Iohexol 350 MG/100 ML VIAL ONE (07:12)
--- NOTE | 2017-11-05 07:22 | CP.CCUPN ---
<Kinga Boateng - Last Filed: 11/05/17 10:13> CCU Subjective - Physician Review Subjective (Free Text): 11/05/17 9:14 Patient is s/p reintubation yesterday due to change in mental status 2nd to hypercapnea respiratory failure from lack of inability to protect airway post extubation. Patient alert and awake. Denies cp, sob, or abdominal pain. Critical Care Time Spent (in minutes): 45 CCU Objective - Vital Signs / Intake & Output Vital Signs (Last 4 hours): Vital Signs Temp Pulse BP Pulse Ox 11/05/17 06:00 63 159/94 H 11/05/17 05:50 77 11/05/17 05:40 78 11/05/17 05:30 63 11/05/17 05:20 85 88 L 11/05/17 05:10 70 99 11/05/17 05:00 61 146/83 98 11/05/17 04:50 72 99 11/05/17 04:40 69 100 11/05/17 04:30 62 97 11/05/17 04:20 72 98 11/05/17 04:10 67 97 11/05/17 04:00 97.0 F L 85 148/79 95 11/05/17 03:50 86 81 L 11/05/17 03:40 77 96 11/05/17 03:30 86 97 Intake and Output (Last 8hrs): Intake & Output 11/04/17 11/05/17 11/05/17 22:59 06:59 14:59 Intake Total 2200 540 Output Total 1200 1400 Balance 1000 -860 Intake: IV 2200 540 Left Antecubital 2000 Right Forearm 375 fentanyl 50 precedex 50 Output: Urine 1200 1400 2-way Urethral 1200 1400 Stool 0 - Physical Exam Head: Positive for: Atraumatic, Normocephalic Pupils: Positive for: PERRL Extroacular Muscles: Positive for: EOMI Conjunctiva: Positive for: Normal Ears: Positive for: Normal Mouth: Positive for: Moist Mucous Membranes Pharnyx: Positive for: Normal Nose (External): Positive for: Atraumatic Nose (Internal): Positive for: Normal Inspection Neck: Positive for: Normal Range of Motion Respiratory/Chest: Positive for: Wheezes (diffusely). Negative for: Clear to Auscultation, Respiratory Distress, Accessory Muscle Use, Decreased Breath Sounds, Rales, Retracting, Rhonchi, Tachypneic, Tender to Palpation Cardiovascular: Positive for: Regular Rate and Rhythm, Normal S1, S2, Tachycardic Abdomen: Negative for: Tenderness, Distention, Normal Bowel Sounds, Peritoneal Signs, Rebound, Guarding, McBurney's Point Tender, Rovsing's Sign Present, Hernias, Feeding Tubes, Ostomy Tubes, Mass/Organomegaly, Scars, Other Back: Positive for: Normal Inspection Upper Extremity: Positive for: Normal Inspection Lower Extremity: Positive for: Normal Inspection Neurological: Positive for: GCS=15, Motor Func Grossly Intact Skin: Positive for: Warm, Normal Color Psychiatric: Positive for: Alert - Medications Active Medications: Active Medications Generic Name Dose Route Start Last Admin Trade Name Freq PRN Reason Stop Dose Admin Albuterol Sulfate 2.5 mg 11/02/17 21:44 Albuterol 0.083% Inhal Snow (2.5 Mg/3 Ml) Ud IH Q2H PRN Shortness of Breath Albuterol Sulfate 2.5 mg 11/03/17 14:00 11/05/17 01:16 Albuterol 0.083% Inhal Snow (2.5 Mg/3 Ml) Ud INH 2.5 mg [id number] SOLEDAD Administration Heparin Sodium (Porcine) 5,000 units 11/03/17 10:00 11/04/17 21:28 Heparin SC 5,000 units Q12 SOLEDAD Administration Protocol Azithromycin 250 mg/ Sodium 250 mls @ 167 mls/hr 11/03/17 10:00 11/04/17 11: 38 Chloride IVPB 167 mls/hr DAILY SOLEDAD Administration Protocol Ceftriaxone Sodium 1 gm in 100 mls @ 100 mls/hr 11/03/17 10:57 11/04/17 21:28 Rocephin 1 Gram Ivpb IVPB 100 mls/hr DAILY@2200 SOLEDAD Administration Protocol Dexmedetomidine HCl 400 mcg in 100 mls @ 2.345 mls/hr 11/04/17 13:49 05:01 Precedex 4 Mcg/Ml (100 Ml) IV 1.5 mcg/kg/hr .Q24H PRN 17.588 mls/hr Agitation Administration Protocol 0.2 MCG/KG/HR Fentanyl Citrate 1,000 mcg in 100 mls @ 2 mls/hr 11/04/17 13:49 11/05/17 03: 33 Fentanyl Citrate/Sodium Chloride 1 Mg/100 Ml IV 60 mcg/hr .Q24H PRN 6 mls/hr TITRATE PER MD ORDER Titration Protocol 20 MCG/HR Lactic Acid 1 gm 11/04/17 22:00 11/04/17 21:44 Lac-Hydrin 12% Lotion (225 G) EXT 1 applic Q12 SOLEDAD Administration Methylprednisolone 40 mg 11/03/17 10:00 11/04/17 21:28 Solu-Medrol IVP 40 mg Q12 SOLEDAD Administration Nicotine 1 patch 11/04/17 10:00 11/04/17 09:15 Nicoderm Cq TD 1 patch DAILY SOLEDAD Administration Pantoprazole Sodium 40 mg 11/03/17 10:00 11/04/17 09:15 Protonix Inj IVP 40 mg DAILY SOLEDAD Administration - Patient Studies Lab Studies: Microbiology Studies 11/03/17 08:10 MRSA Culture (Admit) - Final Nose MRSA NOT DETECTED Lab Studies 11/05/17 11/04/17 11/04/17 Range/Units 05:39 16:20 13:24 WBC (4.5-11.0) 10^3/ul RBC (3.5-6.1) 10^6/uL Hgb (14.0-18.0) g/dL Hct (42.0-52.0) % MCV (80.0-105.0) fl MCH (25.0-35.0) pg MCHC (31.0-37.0) g/dl RDW (11.5-14.5) % Plt Count (120.0-450.0) 10^3/uL MPV (7.0-11.0) fl Gran % (50.0-68.0) % Lymph % (Auto) (22.0-35.0) % [place] % (Auto) (1.0-6.0) % Eos % (Auto) (1.5-5.0) % Baso % (Auto) (0.0-3.0) % Gran # (1.4-6.5) Lymph # (Auto) (1.2-3.4) [place] # (Auto) (0.1-0.6) Eos # (Auto) (0.0-0.7) Baso # (Auto) (0.0-2.0) K/mm3 APTT (25.1-36.5) Seconds pCO2 39 40 (35-45) mm/Hg pO2 159.0 H 54.0 L (80-100) mm/Hg HCO3 28.4 H 26.5 (21-28) mmol/L ABG pH 7.47 H 7.43 (7.35-7.45) ABG Total CO2 29.6 H 27.7 (22-28) mmol.L ABG O2 Saturation 99.6 H 94.1 L (95-98) % ABG O2 Content 14.6 L 12.7 L (15-23) ML/dl ABG Base Excess 4.4 H 2.0 (-2.0-3.0) mmol/L ABG Hemoglobin 10.4 L 9.9 L (11.7-17.4) g/dL ABG Carboxyhemoglobin 1.4 2.0 H (0.5-1.5) % POC ABG HHb (Measured) 0.4 5.7 H (0-5) % ABG Methemoglobin 0.5 1.3 (0.0-3.0) % ABG O2 Capacity 14.7 L 13.5 L (16-24) mL/dl Hgb O2 Saturation 97.7 90.9 L (95.0-98.0) % FiO2 60.0 40.0 % Sodium 133 (132-148) mmol/L Potassium 4.2 (3.6-5.0) mmol/L Chloride 96 L (98-107) mmol/L Carbon Dioxide 29 (21-33) mmol/L Anion Gap 12 (10-20) BUN 11 (7-21) mg/dL Creatinine 0.7 L (0.8-1.5) mg/dl Est GFR ( Amer) > 60 Est GFR (Non-Af Amer) > 60 POC Glucose (mg/dL) (65-110) mg/dL Random Glucose 119 H (70-110) mg/dL Calcium 8.6 (8.4-10.5) mg/dL Phosphorus (2.5-4.5) mg/dL Magnesium (1.7-2.2) mg/dL Total Bilirubin (0.2-1.3) mg/dL AST (17-59) U/L ALT (7-56) U/L Alkaline Phosphatase (38-126) U/L Total Protein (5.8-8.3) g/dL Albumin (3.0-4.8) g/dL Globulin gm/dL Albumin/Globulin Ratio (1.1-1.8) 11/04/17 11/04/17 11/04/17 Range/Units 12:17 12:15 11:50 WBC (4.5-11.0) 10^3/ul RBC (3.5-6.1) 10^6/uL Hgb (14.0-18.0) g/dL Hct (42.0-52.0) % MCV (80.0-105.0) fl MCH (25.0-35.0) pg MCHC (31.0-37.0) g/dl RDW (11.5-14.5) % Plt Count (120.0-450.0) 10^3/uL MPV (7.0-11.0) fl Gran % (50.0-68.0) % Lymph % (Auto) (22.0-35.0) % [place] % (Auto) (1.0-6.0) % Eos % (Auto) (1.5-5.0) % Baso % (Auto) (0.0-3.0) % Gran # (1.4-6.5) Lymph # (Auto) (1.2-3.4) [place] # (Auto) (0.1-0.6) Eos # (Auto) (0.0-0.7) Baso # (Auto) (0.0-2.0) K/mm3 APTT (25.1-36.5) Seconds pCO2 140 H* (35-45) mm/Hg pO2 85.0 (80-100) mm/Hg HCO3 35.3 H (21-28) mmol/L ABG pH 7.01 L* (7.35-7.45) ABG Total CO2 39.6 H (22-28) mmol.L ABG O2 Saturation 95.1 (95-98) % ABG O2 Content 17.0 (15-23) ML/dl ABG Base Excess 0.2 (-2.0-3.0) mmol/L ABG Hemoglobin 13.1 (11.7-17.4) g/dL ABG Carboxyhemoglobin 2.4 H (0.5-1.5) % POC ABG HHb (Measured) 4.7 (0-5) % ABG Methemoglobin 1.0 (0.0-3.0) % ABG O2 Capacity 17.9 (16-24) mL/dl Hgb O2 Saturation 91.9 L (95.0-98.0) % FiO2 100.0 % Sodium 132 (132-148) mmol/L Potassium 4.2 (3.6-5.0) mmol/L Chloride 90 L (98-107) mmol/L Carbon Dioxide 36 H (21-33) mmol/L Anion Gap 11 (10-20) BUN 11 (7-21) mg/dL Creatinine 0.8 (0.8-1.5) mg/dl Est GFR ( Amer) > 60 Est GFR (Non-Af Amer) > 60 POC Glucose (mg/dL) 187 H (65-110) mg/dL Random Glucose 202 H (70-110) mg/dL Calcium 9.2 (8.4-10.5) mg/dL Phosphorus (2.5-4.5) mg/dL Magnesium (1.7-2.2) mg/dL Total Bilirubin (0.2-1.3) mg/dL AST (17-59) U/L ALT (7-56) U/L Alkaline Phosphatase (38-126) U/L Total Protein (5.8-8.3) g/dL Albumin (3.0-4.8) g/dL Globulin gm/dL Albumin/Globulin Ratio (1.1-1.8) 11/04/17 11/04/17 11/04/17 Range/Units 09:40 05:30 05:30 WBC (4.5-11.0) 10^3/ul RBC (3.5-6.1) 10^6/uL Hgb (14.0-18.0) g/dL Hct (42.0-52.0) % MCV (80.0-105.0) fl MCH (25.0-35.0) pg MCHC (31.0-37.0) g/dl RDW (11.5-14.5) % Plt Count (120.0-450.0) 10^3/uL MPV (7.0-11.0) fl Gran % (50.0-68.0) % Lymph % (Auto) (22.0-35.0) % [place] % (Auto) (1.0-6.0) % Eos % (Auto) (1.5-5.0) % Baso % (Auto) (0.0-3.0) % Gran # (1.4-6.5) Lymph # (Auto) (1.2-3.4) [place] # (Auto) (0.1-0.6) Eos # (Auto) (0.0-0.7) Baso # (Auto) (0.0-2.0) K/mm3 APTT 25.0 L (25.1-36.5) Seconds pCO2 (35-45) mm/Hg pO2 (80-100) mm/Hg HCO3 (21-28) mmol/L ABG pH (7.35-7.45) ABG Total CO2 (22-28) mmol.L ABG O2 Saturation (95-98) % ABG O2 Content (15-23) ML/dl ABG Base Excess (-2.0-3.0) mmol/L ABG Hemoglobin (11.7-17.4) g/dL ABG Carboxyhemoglobin (0.5-1.5) % POC ABG HHb (Measured) (0-5) % ABG Methemoglobin (0.0-3.0) % ABG O2 Capacity (16-24) mL/dl Hgb O2 Saturation (95.0-98.0) % FiO2 % Sodium 131 L 129 L (132-148) mmol/L Potassium 4.1 3.9 (3.6-5.0) mmol/L Chloride 91 L 91 L (98-107) mmol/L Carbon Dioxide 34 H 31 (21-33) mmol/L Anion Gap 11 11 (10-20) BUN 9 8 (7-21) mg/dL Creatinine 0.6 L 0.5 L (0.8-1.5) mg/dl Est GFR ( Amer) > 60 > 60 Est GFR (Non-Af Amer) > 60 > 60 POC Glucose (mg/dL) (65-110) mg/dL Random Glucose 162 H 177 H (70-110) mg/dL Calcium 9.1 8.9 (8.4-10.5) mg/dL Phosphorus 3.8 (2.5-4.5) mg/dL Magnesium 2.0 (1.7-2.2) mg/dL Total Bilirubin 0.3 (0.2-1.3) mg/dL AST 34 (17-59) U/L ALT 39 (7-56) U/L Alkaline Phosphatase 53 (38-126) U/L Total Protein 5.6 L (5.8-8.3) g/dL Albumin 3.0 (3.0-4.8) g/dL Globulin 2.6 gm/dL Albumin/Globulin Ratio 1.1 (1.1-1.8) 11/04/17 Range/Units 05:30 WBC 8.9 (4.5-11.0) 10^3/ul RBC 3.83 (3.5-6.1) 10^6/uL Hgb 11.3 L (14.0-18.0) g/dL Hct 33.2 L (42.0-52.0) % MCV 86.7 (80.0-105.0) fl MCH 29.5 (25.0-35.0) pg MCHC 34.0 (31.0-37.0) g/dl RDW 12.6 (11.5-14.5) % Plt Count 267 (120.0-450.0) 10^3/uL MPV 10.3 (7.0-11.0) fl Gran % 86.6 H (50.0-68.0) % Lymph % (Auto) 4.6 L (22.0-35.0) % [place] % (Auto) 8.8 H (1.0-6.0) % Eos % (Auto) 0.0 L (1.5-5.0) % Baso % (Auto) 0.0 (0.0-3.0) % Gran # 7.66 H (1.4-6.5) Lymph # (Auto) 0.4 L (1.2-3.4) [place] # (Auto) 0.8 H (0.1-0.6) Eos # (Auto) 0.0 (0.0-0.7) Baso # (Auto) 0.00 (0.0-2.0) K/mm3 APTT (25.1-36.5) Seconds pCO2 (35-45) mm/Hg pO2 (80-100) mm/Hg HCO3 (21-28) mmol/L ABG pH (7.35-7.45) ABG Total CO2 (22-28) mmol.L ABG O2 Saturation (95-98) % ABG O2 Content (15-23) ML/dl ABG Base Excess (-2.0-3.0) mmol/L ABG Hemoglobin (11.7-17.4) g/dL ABG Carboxyhemoglobin (0.5-1.5) % POC ABG HHb (Measured) (0-5) % ABG Methemoglobin (0.0-3.0) % ABG O2 Capacity (16-24) mL/dl Hgb O2 Saturation (95.0-98.0) % FiO2 % Sodium (132-148) mmol/L Potassium (3.6-5.0) mmol/L Chloride (98-107) mmol/L Carbon Dioxide (21-33) mmol/L Anion Gap (10-20) BUN (7-21) mg/dL Creatinine (0.8-1.5) mg/dl Est GFR ( Amer) Est GFR (Non-Af Amer) POC Glucose (mg/dL) (65-110) mg/dL Random Glucose (70-110) mg/dL Calcium (8.4-10.5) mg/dL Phosphorus (2.5-4.5) mg/dL Magnesium (1.7-2.2) mg/dL Total Bilirubin (0.2-1.3) mg/dL AST (17-59) U/L ALT (7-56) U/L Alkaline Phosphatase (38-126) U/L Total Protein (5.8-8.3) g/dL Albumin (3.0-4.8) g/dL Globulin gm/dL Albumin/Globulin Ratio (1.1-1.8) Laboratory Results - last 24 hr 11/04/17 11/04/17 11/04/17 05:30 05:30 05:30 WBC 8.9 RBC 3.83 Hgb 11.3 L Hct 33.2 L MCV 86.7 MCH 29.5 MCHC 34.0 RDW 12.6 Plt Count 267 MPV 10.3 Gran % 86.6 H Lymph % (Auto) 4.6 L [place] % (Auto) 8.8 H Eos % (Auto) 0.0 L Baso % (Auto) 0.0 Gran # 7.66 H Lymph # (Auto) 0.4 L [place] # (Auto) 0.8 H Eos # (Auto) 0.0 Baso # (Auto) 0.00 APTT 25.0 L pCO2 pO2 HCO3 ABG pH ABG Total CO2 ABG O2 Saturation ABG O2 Content ABG Base Excess ABG Hemoglobin ABG Carboxyhemoglobin POC ABG HHb (Measured) ABG Methemoglobin ABG O2 Capacity Hgb O2 Saturation FiO2 Sodium 129 L Potassium 3.9 Chloride 91 L Carbon Dioxide 31 Anion Gap 11 BUN 8 Creatinine 0.5 L Est GFR ( Amer) > 60 Est GFR (Non-Af Amer) > 60 POC Glucose (mg/dL) Random Glucose 177 H Calcium 8.9 Phosphorus 3.8 Magnesium 2.0 Total Bilirubin 0.3 AST 34 ALT 39 Alkaline Phosphatase 53 Total Protein 5.6 L Albumin 3.0 Globulin 2.6 Albumin/Globulin Ratio 1.1 11/04/17 11/04/17 11/04/17 09:40 11:50 12:15 WBC RBC Hgb Hct MCV MCH MCHC RDW Plt Count MPV Gran % Lymph % (Auto) [place] % (Auto) Eos % (Auto) Baso % (Auto) Gran # Lymph # (Auto) [place] # (Auto) Eos # (Auto) Baso # (Auto) APTT pCO2 140 H* pO2 85.0 HCO3 35.3 H ABG pH 7.01 L* ABG Total CO2 39.6 H ABG O2 Saturation 95.1 ABG O2 Content 17.0 ABG Base Excess 0.2 ABG Hemoglobin 13.1 ABG Carboxyhemoglobin 2.4 H POC ABG HHb (Measured) 4.7 ABG Methemoglobin 1.0 ABG O2 Capacity 17.9 Hgb O2 Saturation 91.9 L FiO2 100.0 Sodium 131 L 132 Potassium 4.1 4.2 Chloride 91 L 90 L Carbon Dioxide 34 H 36 H Anion Gap 11 11 BUN 9 11 Creatinine 0.6 L 0.8 Est GFR ( Amer) > 60 > 60 Est GFR (Non-Af Amer) > 60 > 60 POC Glucose (mg/dL) Random Glucose 162 H 202 H Calcium 9.1 9.2 Phosphorus Magnesium Total Bilirubin AST ALT Alkaline Phosphatase Total Protein Albumin Globulin Albumin/Globulin Ratio 11/04/17 11/04/17 11/04/17 12:17 13:24 16:20 WBC RBC Hgb Hct MCV MCH MCHC RDW Plt Count MPV Gran % Lymph % (Auto) [place] % (Auto) Eos % (Auto) Baso % (Auto) Gran # Lymph # (Auto) [place] # (Auto) Eos # (Auto) Baso # (Auto) APTT pCO2 40 pO2 54.0 L HCO3 26.5 ABG pH 7.43 ABG Total CO2 27.7 ABG O2 Saturation 94.1 L ABG O2 Content 12.7 L ABG Base Excess 2.0 ABG Hemoglobin 9.9 L ABG Carboxyhemoglobin 2.0 H POC ABG HHb (Measured) 5.7 H ABG Methemoglobin 1.3 ABG O2 Capacity 13.5 L Hgb O2 Saturation 90.9 L FiO2 40.0 Sodium 133 Potassium 4.2 Chloride 96 L Carbon Dioxide 29 Anion Gap 12 BUN 11 Creatinine 0.7 L Est GFR ( Amer) > 60 Est GFR (Non-Af Amer) > 60 POC Glucose (mg/dL) 187 H Random Glucose 119 H Calcium 8.6 Phosphorus Magnesium Total Bilirubin AST ALT Alkaline Phosphatase Total Protein Albumin Globulin Albumin/Globulin Ratio 11/05/17 05:39 WBC RBC Hgb Hct MCV MCH MCHC RDW Plt Count MPV Gran % Lymph % (Auto) [place] % (Auto) Eos % (Auto) Baso % (Auto) Gran # Lymph # (Auto) [place] # (Auto) Eos # (Auto) Baso # (Auto) APTT pCO2 39 pO2 159.0 H HCO3 28.4 H ABG pH 7.47 H ABG Total CO2 29.6 H ABG O2 Saturation 99.6 H ABG O2 Content 14.6 L ABG Base Excess 4.4 H ABG Hemoglobin 10.4 L ABG Carboxyhemoglobin 1.4 POC ABG HHb (Measured) 0.4 ABG Methemoglobin 0.5 ABG O2 Capacity 14.7 L Hgb O2 Saturation 97.7 FiO2 60.0 Sodium Potassium Chloride Carbon Dioxide Anion Gap BUN Creatinine Est GFR ( Amer) Est GFR (Non-Af Amer) POC Glucose (mg/dL) Random Glucose Calcium Phosphorus Magnesium Total Bilirubin AST ALT Alkaline Phosphatase Total Protein Albumin Globulin Albumin/Globulin Ratio Critical Care Progress Note - Ventilator Checklist Head of Bed 30 Degrees: Yes Daily Sedation Vacation: Yes Daily Assessment of Readiness to Wean: Yes Daily Spontaneous Breathing Trial: Yes PUD Prophalyxis: Yes DVT Prophylaxis: Yes Oral Care with Chlorhexidine Gluconate {CHG}: Yes - Vent Settings MODE:: PRVC - Extremities/Vascular Does the Patient have a Central Venous Catheter?: No Does the Patient need a Central Venous Catheter?: No Does the Patient have a Amanda Catheter?: Yes Does the Patient need a Amanda Catheter?: Yes Catheter Insertion Criteria: Need for accurate measurement of output in critically ill patient - Restraints Justification for Restraints: High risk for self extubation - Prophylaxis GI Prophylaxis GI: PPI - Prophylaxis DVT Prophylaxis DVT: Heparin SQ - Nutrition Nutrition: Nutrition Category Date Time Status NPO Diet [DIET] Diets 11/02/17 Breakfast Ordered Assessment/Plan - Assessment and Plan (Free Text) Assessment: Patient is a 52 y/o with PMHx significant for alcohol abuse and copd admitted with hyponatremia and hypercapneic respiratory failure. Patient is s/p extubation to bipap. Plan: Neurology: Mental status improved, minimally sedated on fentanyl and versed. Will add propofol Pulm- Hypercapneic respiratory failure likely due to COPD exacerbation. s/p intubation and extubation, - ABG reviewed, CO2 retention improved, respiratory acidosis resolved. - Continue with protected lung ventilation strategies - duonebs prn and standing dose. - patient is also on solu medrol - head of bed above 35 degrees - On abx for copd exacerbation - Pharyngeal mass- pending soft tissue CT, ENT following Cardio: Patient is hemodynamically stable Will monitor and maintain MAP above 65% echo with lvef of 45-50% Renal: Hyponatremia - resolved - Will continue to monitor renal function Endo: Will maintain euglycemia Heme: h/h stable, will continue to monitor ID: - On rocephin/ zithromax/ vanco for copd exacerbation. - Mild leukocytosis likely due to solu medrol - not febrile, and no growth on cultures. procal is also low. GI: currently NPO, On ppi for Gi prophylaxis. Tobacco abuse- nicotine patch DVT prophylaxis: heparin sc. Dispo- assisted plan to be discussed with family, in terms of trach and peg, and placement. Patient seen, examined and case discussed with Dr Turner. - Date & Time Date: 11/05/17 Time: 10:20 <Freddie Turner - Last Filed: 11/05/17 10:54> CCU Objective - Vital Signs / Intake & Output Vital Signs (Last 4 hours): Vital Signs Temp Pulse Resp BP Pulse Ox 11/05/17 10:30 53 L 98 11/05/17 10:20 65 100 11/05/17 10:10 58 L 98 11/05/17 10:00 66 141/87 99 11/05/17 09:50 62 97 11/05/17 09:40 60 97 11/05/17 09:30 74 95 11/05/17 09:20 74 95 11/05/17 09:10 93 H 96 11/05/17 09:08 88 141/104 H 97 11/05/17 09:07 92 H 98 11/05/17 08:30 62 99 11/05/17 08:23 16 100 11/05/17 08:20 57 L 100 11/05/17 08:10 57 L 92 L 11/05/17 08:00 78 139/89 99 11/05/17 07:52 97.6 F 70 16 99 11/05/17 07:50 69 98 11/05/17 07:40 94 H 99 11/05/17 07:36 70 11/05/17 07:30 73 99 11/05/17 07:20 61 100 11/05/17 07:10 100 11/05/17 07:00 59 L 172/93 H 100 11/05/17 06:50 57 L 98 Intake and Output (Last 8hrs): Intake & Output 11/04/17 11/05/17 11/05/17 22:59 06:59 14:59 Intake Total 2200 540 35 Output Total 1200 1400 Balance 1000 -860 35 Intake: IV 2200 540 35 Left Antecubital 2000 Right Forearm 375 fentanyl 50 precedex 50 Output: Urine 1200 [address] Urethral 1200 1400 Stool 0 - Medications Active Medications: Active Medications Generic Name Dose Route Start Last Admin Trade Name Freq PRN Reason Stop Dose Admin Albuterol Sulfate 2.5 mg 11/02/17 21:44 Albuterol 0.083% Inhal Snow (2.5 Mg/3 Ml) Ud IH Q2H PRN Shortness of Breath Albuterol Sulfate 2.5 mg 11/03/17 14:00 11/05/17 07:21 Albuterol 0.083% Inhal Snow (2.5 Mg/3 Ml) Ud INH 2.5 mg [id number] SOLEDAD Administration Heparin Sodium (Porcine) 5,000 units 11/03/17 10:00 11/05/17 09:29 Heparin SC 5,000 units Q12 SOLEDAD Administration Protocol Azithromycin 250 mg/ Sodium 250 mls @ 167 mls/hr 11/03/17 10:00 11/05/17 09: 51 Chloride IVPB 167 mls/hr DAILY SOLEDAD Administration Protocol Ceftriaxone Sodium 1 gm in 100 mls @ 100 mls/hr 11/03/17 10:57 11/04/17 21:28 Rocephin 1 Gram Ivpb IVPB 100 mls/hr DAILY@2200 SOLEDAD Administration Protocol Dexmedetomidine HCl 400 mcg in 100 mls @ 2.345 mls/hr 11/04/17 13:49 05:01 Precedex 4 Mcg/Ml (100 Ml) IV 1.5 mcg/kg/hr .Q24H PRN 17.588 mls/hr Agitation Administration Protocol 0.2 MCG/KG/HR Fentanyl Citrate 1,000 mcg in 100 mls @ 2 mls/hr 11/04/17 13:49 11/05/17 09: 25 Fentanyl Citrate/Sodium Chloride 1 Mg/100 Ml IV 150 mcg/hr .Q24H PRN 15 mls/hr TITRATE PER MD ORDER Administration Protocol 20 MCG/HR Propofol 1,000 mg in 100 mls @ 1.633 mls/hr 11/05/17 09:18 11/05/17 10:31 Diprivan IV 10 mcg/kg/min .Q24H PRN 3.266 mls/hr TITRATE PER MD ORDER Titration Protocol 5 MCG/KG/MIN Lactic Acid 1 gm 11/04/17 22:00 11/05/17 09:30 Lac-Hydrin 12% Lotion (225 G) EXT 1 applic Q12 SOLEDAD Administration Methylprednisolone 40 mg 11/03/17 10:00 11/05/17 09:30 Solu-Medrol IVP 40 mg Q12 SOLEDAD Administration Nicotine 1 patch 11/04/17 10:00 11/05/17 09:30 Nicoderm Cq TD 1 patch DAILY SOLEDAD Administration Pantoprazole Sodium 40 mg 11/03/17 10:00 11/05/17 09:30 Protonix Inj IVP 40 mg DAILY SOLEDAD Administration - Patient Studies Lab Studies: Microbiology Studies 11/03/17 08:10 MRSA Culture (Admit) - Final Nose MRSA NOT DETECTED Lab Studies 11/05/17 11/05/17 11/05/17 Range/Units 07:00 07:00 07:00 WBC 11.6 H D (4.5-11.0) 10^3/ul RBC 3.72 (3.5-6.1) 10^6/uL Hgb 11.0 L (14.0-18.0) g/dL Hct 32.7 L (42.0-52.0) % MCV 87.9 (80.0-105.0) fl MCH 29.6 (25.0-35.0) pg MCHC 33.6 (31.0-37.0) g/dl RDW 12.9 (11.5-14.5) % Plt Count 271 (120.0-450.0) 10^3/uL MPV 9.7 (7.0-11.0) fl Gran % 86.1 H (50.0-68.0) % Lymph % (Auto) 5.4 L (22.0-35.0) % [place] % (Auto) 8.5 H (1.0-6.0) % Eos % (Auto) 0.0 L (1.5-5.0) % Baso % (Auto) 0.0 (0.0-3.0) % Gran # 9.96 H (1.4-6.5) Lymph # (Auto) 0.6 L (1.2-3.4) [place] # (Auto) 1.0 H (0.1-0.6) Eos # (Auto) 0.0 (0.0-0.7) Baso # (Auto) 0.00 (0.0-2.0) K/mm3 APTT 24.6 L (25.1-36.5) Seconds pCO2 (35-45) mm/Hg pO2 (80-100) mm/Hg HCO3 (21-28) mmol/L ABG pH (7.35-7.45) ABG Total CO2 (22-28) mmol.L ABG O2 Saturation (95-98) % ABG O2 Content (15-23) ML/dl ABG Base Excess (-2.0-3.0) mmol/L ABG Hemoglobin (11.7-17.4) g/dL ABG Carboxyhemoglobin (0.5-1.5) % POC ABG HHb (Measured) (0-5) % ABG Methemoglobin (0.0-3.0) % ABG O2 Capacity (16-24) mL/dl Hgb O2 Saturation (95.0-98.0) % FiO2 % Sodium 137 (132-148) mmol/L Potassium 3.7 (3.6-5.0) mmol/L Chloride 98 (98-107) mmol/L Carbon Dioxide 32 (21-33) mmol/L Anion Gap 11 (10-20) BUN 12 (7-21) mg/dL Creatinine 0.7 L (0.8-1.5) mg/dl Est GFR ( Amer) > 60 Est GFR (Non-Af Amer) > 60 POC Glucose (mg/dL) (65-110) mg/dL Random Glucose 109 (70-110) mg/dL Calcium 9.2 (8.4-10.5) mg/dL Phosphorus 4.6 H (2.5-4.5) mg/dL Magnesium 1.8 (1.7-2.2) mg/dL Total Bilirubin 0.3 (0.2-1.3) mg/dL AST 34 (17-59) U/L ALT 44 (7-56) U/L Alkaline Phosphatase 70 (38-126) U/L Total Protein 5.7 L (5.8-8.3) g/dL Albumin 3.0 (3.0-4.8) g/dL Globulin 2.7 gm/dL Albumin/Globulin Ratio 1.1 (1.1-1.8) Urine Chloride (32-290) mmol/L 11/05/17 11/04/17 11/04/17 Range/Units 05:39 16:20 13:24 WBC (4.5-11.0) 10^3/ul RBC (3.5-6.1) 10^6/uL Hgb (14.0-18.0) g/dL Hct (42.0-52.0) % MCV (80.0-105.0) fl MCH (25.0-35.0) pg MCHC (31.0-37.0) g/dl RDW (11.5-14.5) % Plt Count (120.0-450.0) 10^3/uL MPV (7.0-11.0) fl Gran % (50.0-68.0) % Lymph % (Auto) (22.0-35.0) % [place] % (Auto) (1.0-6.0) % Eos % (Auto) (1.5-5.0) % Baso % (Auto) (0.0-3.0) % Gran # (1.4-6.5) Lymph # (Auto) (1.2-3.4) [place] # (Auto) (0.1-0.6) Eos # (Auto) (0.0-0.7) Baso # (Auto) (0.0-2.0) K/mm3 APTT (25.1-36.5) Seconds pCO2 39 40 (35-45) mm/Hg pO2 159.0 H 54.0 L (80-100) mm/Hg HCO3 28.4 H 26.5 (21-28) mmol/L ABG pH 7.47 H 7.43 (7.35-7.45) ABG Total CO2 29.6 H 27.7 (22-28) mmol.L ABG O2 Saturation 99.6 H 94.1 L (95-98) % ABG O2 Content 14.6 L 12.7 L (15-23) ML/dl ABG Base Excess 4.4 H 2.0 (-2.0-3.0) mmol/L ABG Hemoglobin 10.4 L 9.9 L (11.7-17.4) g/dL ABG Carboxyhemoglobin 1.4 2.0 H (0.5-1.5) % POC ABG HHb (Measured) 0.4 5.7 H (0-5) % ABG Methemoglobin 0.5 1.3 (0.0-3.0) % ABG O2 Capacity 14.7 L 13.5 L (16-24) mL/dl Hgb O2 Saturation 97.7 90.9 L (95.0-98.0) % FiO2 60.0 40.0 % Sodium 133 (132-148) mmol/L Potassium 4.2 (3.6-5.0) mmol/L Chloride 96 L (98-107) mmol/L Carbon Dioxide 29 (21-33) mmol/L Anion Gap 12 (10-20) BUN 11 (7-21) mg/dL Creatinine 0.7 L (0.8-1.5) mg/dl Est GFR ( Amer) > 60 Est GFR (Non-Af Amer) > 60 POC Glucose (mg/dL) (65-110) mg/dL Random Glucose 119 H (70-110) mg/dL Calcium 8.6 (8.4-10.5) mg/dL Phosphorus (2.5-4.5) mg/dL Magnesium (1.7-2.2) mg/dL Total Bilirubin (0.2-1.3) mg/dL AST (17-59) U/L ALT (7-56) U/L Alkaline Phosphatase (38-126) U/L Total Protein (5.8-8.3) g/dL Albumin (3.0-4.8) g/dL Globulin gm/dL Albumin/Globulin Ratio (1.1-1.8) Urine Chloride (32-290) mmol/L 11/04/17 11/04/17 11/04/17 Range/Units 12:17 12:15 11:50 WBC (4.5-11.0) 10^3/ul RBC (3.5-6.1) 10^6/uL Hgb (14.0-18.0) g/dL Hct (42.0-52.0) % MCV (80.0-105.0) fl MCH (25.0-35.0) pg MCHC (31.0-37.0) g/dl RDW (11.5-14.5) % Plt Count (120.0-450.0) 10^3/uL MPV (7.0-11.0) fl Gran % (50.0-68.0) % Lymph % (Auto) (22.0-35.0) % [place] % (Auto) (1.0-6.0) % Eos % (Auto) (1.5-5.0) % Baso % (Auto) (0.0-3.0) % Gran # (1.4-6.5) Lymph # (Auto) (1.2-3.4) [place] # (Auto) (0.1-0.6) Eos # (Auto) (0.0-0.7) Baso # (Auto) (0.0-2.0) K/mm3 APTT (25.1-36.5) Seconds pCO2 140 H* (35-45) mm/Hg pO2 85.0 (80-100) mm/Hg HCO3 35.3 H (21-28) mmol/L ABG pH 7.01 L* (7.35-7.45) ABG Total CO2 39.6 H (22-28) mmol.L ABG O2 Saturation 95.1 (95-98) % ABG O2 Content 17.0 (15-23) ML/dl ABG Base Excess 0.2 (-2.0-3.0) mmol/L ABG Hemoglobin 13.1 (11.7-17.4) g/dL ABG Carboxyhemoglobin 2.4 H (0.5-1.5) % POC ABG HHb (Measured) 4.7 (0-5) % ABG Methemoglobin 1.0 (0.0-3.0) % ABG O2 Capacity 17.9 (16-24) mL/dl Hgb O2 Saturation 91.9 L (95.0-98.0) % FiO2 100.0 % Sodium 132 (132-148) mmol/L Potassium 4.2 (3.6-5.0) mmol/L Chloride 90 L (98-107) mmol/L Carbon Dioxide 36 H (21-33) mmol/L Anion Gap 11 (10-20) BUN 11 (7-21) mg/dL Creatinine 0.8 (0.8-1.5) mg/dl Est GFR ( Amer) > 60 Est GFR (Non-Af Amer) > 60 POC Glucose (mg/dL) 187 H (65-110) mg/dL Random Glucose 202 H (70-110) mg/dL Calcium 9.2 (8.4-10.5) mg/dL Phosphorus (2.5-4.5) mg/dL Magnesium (1.7-2.2) mg/dL Total Bilirubin (0.2-1.3) mg/dL AST (17-59) U/L ALT (7-56) U/L Alkaline Phosphatase (38-126) U/L Total Protein (5.8-8.3) g/dL Albumin (3.0-4.8) g/dL Globulin gm/dL Albumin/Globulin Ratio (1.1-1.8) Urine Chloride (32-290) mmol/L 11/03/17 Range/Units 02:00 WBC (4.5-11.0) 10^3/ul RBC (3.5-6.1) 10^6/uL Hgb (14.0-18.0) g/dL Hct (42.0-52.0) % MCV (80.0-105.0) fl MCH (25.0-35.0) pg MCHC (31.0-37.0) g/dl RDW (11.5-14.5) % Plt Count (120.0-450.0) 10^3/uL MPV (7.0-11.0) fl Gran % (50.0-68.0) % Lymph % (Auto) (22.0-35.0) % [place] % (Auto) (1.0-6.0) % Eos % (Auto) (1.5-5.0) % Baso % (Auto) (0.0-3.0) % Gran # (1.4-6.5) Lymph # (Auto) (1.2-3.4) [place] # (Auto) (0.1-0.6) Eos # (Auto) (0.0-0.7) Baso # (Auto) (0.0-2.0) K/mm3 APTT (25.1-36.5) Seconds pCO2 (35-45) mm/Hg pO2 (80-100) mm/Hg HCO3 (21-28) mmol/L ABG pH (7.35-7.45) ABG Total CO2 (22-28) mmol.L ABG O2 Saturation (95-98) % ABG O2 Content (15-23) ML/dl ABG Base Excess (-2.0-3.0) mmol/L ABG Hemoglobin (11.7-17.4) g/dL ABG Carboxyhemoglobin (0.5-1.5) % POC ABG HHb (Measured) (0-5) % ABG Methemoglobin (0.0-3.0) % ABG O2 Capacity (16-24) mL/dl Hgb O2 Saturation (95.0-98.0) % FiO2 % Sodium (132-148) mmol/L Potassium (3.6-5.0) mmol/L Chloride (98-107) mmol/L Carbon Dioxide (21-33) mmol/L Anion Gap (10-20) BUN (7-21) mg/dL Creatinine (0.8-1.5) mg/dl Est GFR ( Amer) Est GFR (Non-Af Amer) POC Glucose (mg/dL) (65-110) mg/dL Random Glucose (70-110) mg/dL Calcium (8.4-10.5) mg/dL Phosphorus (2.5-4.5) mg/dL Magnesium (1.7-2.2) mg/dL Total Bilirubin (0.2-1.3) mg/dL AST (17-59) U/L ALT (7-56) U/L Alkaline Phosphatase (38-126) U/L Total Protein (5.8-8.3) g/dL Albumin (3.0-4.8) g/dL Globulin gm/dL Albumin/Globulin Ratio (1.1-1.8) Urine Chloride 15 L (32-290) mmol/L Laboratory Results - last 24 hr 11/03/17 11/04/17 11/04/17 02:00 11:50 12:15 WBC RBC Hgb Hct MCV MCH MCHC RDW Plt Count MPV Gran % Lymph % (Auto) [place] % (Auto) Eos % (Auto) Baso % (Auto) Gran # Lymph # (Auto) [place] # (Auto) Eos # (Auto) Baso # (Auto) APTT pCO2 140 H* pO2 85.0 HCO3 35.3 H ABG pH 7.01 L* ABG Total CO2 39.6 H ABG O2 Saturation 95.1 ABG O2 Content 17.0 ABG Base Excess 0.2 ABG Hemoglobin 13.1 ABG Carboxyhemoglobin 2.4 H POC ABG HHb (Measured) 4.7 ABG Methemoglobin 1.0 ABG O2 Capacity 17.9 Hgb O2 Saturation 91.9 L FiO2 100.0 Sodium 132 Potassium 4.2 Chloride 90 L Carbon Dioxide 36 H Anion Gap 11 BUN 11 Creatinine 0.8 Est GFR ( Amer) > 60 Est GFR (Non-Af Amer) > 60 POC Glucose (mg/dL) Random Glucose 202 H Calcium 9.2 Phosphorus Magnesium Total Bilirubin AST ALT Alkaline Phosphatase Total Protein Albumin Globulin Albumin/Globulin Ratio Urine Chloride 15 L 11/04/17 11/04/17 11/04/17 12:17 13:24 16:20 WBC RBC Hgb Hct MCV MCH MCHC RDW Plt Count MPV Gran % Lymph % (Auto) [place] % (Auto) Eos % (Auto) Baso % (Auto) Gran # Lymph # (Auto) [place] # (Auto) Eos # (Auto) Baso # (Auto) APTT pCO2 40 pO2 54.0 L HCO3 26.5 ABG pH 7.43 ABG Total CO2 27.7 ABG O2 Saturation 94.1 L ABG O2 Content 12.7 L ABG Base Excess 2.0 ABG Hemoglobin 9.9 L ABG Carboxyhemoglobin 2.0 H POC ABG HHb (Measured) 5.7 H ABG Methemoglobin 1.3 ABG O2 Capacity 13.5 L Hgb O2 Saturation 90.9 L FiO2 40.0 Sodium 133 Potassium 4.2 Chloride 96 L Carbon Dioxide 29 Anion Gap 12 BUN 11 Creatinine 0.7 L Est GFR ( Amer) > 60 Est GFR (Non-Af Amer) > 60 POC Glucose (mg/dL) 187 H Random Glucose 119 H Calcium 8.6 Phosphorus Magnesium Total Bilirubin AST ALT Alkaline Phosphatase Total Protein Albumin Globulin Albumin/Globulin Ratio Urine Chloride 11/05/17 11/05/17 11/05/17 05:39 07:00 07:00 WBC 11.6 H D RBC 3.72 Hgb 11.0 L Hct 32.7 L MCV 87.9 MCH 29.6 MCHC 33.6 RDW 12.9 Plt Count 271 MPV 9.7 Gran % 86.1 H Lymph % (Auto) 5.4 L [place] % (Auto) 8.5 H Eos % (Auto) 0.0 L Baso % (Auto) 0.0 Gran # 9.96 H Lymph # (Auto) 0.6 L [place] # (Auto) 1.0 H Eos # (Auto) 0.0 Baso # (Auto) 0.00 APTT pCO2 39 pO2 159.0 H HCO3 28.4 H ABG pH 7.47 H ABG Total CO2 29.6 H ABG O2 Saturation 99.6 H ABG O2 Content 14.6 L ABG Base Excess 4.4 H ABG Hemoglobin 10.4 L ABG Carboxyhemoglobin 1.4 POC ABG HHb (Measured) 0.4 ABG Methemoglobin 0.5 ABG O2 Capacity 14.7 L Hgb O2 Saturation 97.7 FiO2 60.0 Sodium 137 Potassium 3.7 Chloride 98 Carbon Dioxide 32 Anion Gap 11 BUN 12 Creatinine 0.7 L Est GFR ( Amer) > 60 Est GFR (Non-Af Amer) > 60 POC Glucose (mg/dL) Random Glucose 109 Calcium 9.2 Phosphorus 4.6 H Magnesium 1.8 Total Bilirubin 0.3 AST 34 ALT 44 Alkaline Phosphatase 70 Total Protein 5.7 L Albumin 3.0 Globulin 2.7 Albumin/Globulin Ratio 1.1 Urine Chloride 11/05/17 07:00 WBC RBC Hgb Hct MCV MCH MCHC RDW Plt Count MPV Gran % Lymph % (Auto) [place] % (Auto) Eos % (Auto) Baso % (Auto) Gran # Lymph # (Auto) [place] # (Auto) Eos # (Auto) Baso # (Auto) APTT 24.6 L pCO2 pO2 HCO3 ABG pH ABG Total CO2 ABG O2 Saturation ABG O2 Content ABG Base Excess ABG Hemoglobin ABG Carboxyhemoglobin POC ABG HHb (Measured) ABG Methemoglobin ABG O2 Capacity Hgb O2 Saturation FiO2 Sodium Potassium Chloride Carbon Dioxide Anion Gap BUN Creatinine Est GFR ( Amer) Est GFR (Non-Af Amer) POC Glucose (mg/dL) Random Glucose Calcium Phosphorus Magnesium Total Bilirubin AST ALT Alkaline Phosphatase Total Protein Albumin Globulin Albumin/Globulin Ratio Urine Chloride Critical Care Progress Note - Nutrition Nutrition: Nutrition Category Date Time Status NPO Diet [DIET] Diets 11/02/17 Breakfast Ordered Assessment/Plan - Assessment and Plan (Free Text) Plan: Pt seen and examined, on rounds with resident, agree with note with following additions/exceptions: 52yo male with PMhx of smoker, COPD, EtOH abuse, a/w hypercapnic resp failure, intubated, extubated yesterday, was doing well for 1 hour, then started retaining CO2, ABG done 7.01/140/85, had to be re-intubated. 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 ENT is following. Patient will need tracheostomy and surgical biopsy of mass, spoke to patient, and to the family, including the brother/HCP, patient agreeable to tracheostomy and possible biopsy of mass. Called placed to Dr Giles-ENT office, awaiting call back, will discuss with ENT. ABG this morning acceptable, CXR without focal consolidation, on abx, and IV steroids, doing well otherwise. COPD exacerbation Hypercapnic Resp failure Hyponatremia, resolving EtOH abuse Pharyngeal mass Recommend: - cont with ventilatory support, daily sedation vacation, daily CPAP trials, low tidal vol ventilation - Antibiotics to cover for HCAP - IV steroids, Solumedrol 40mg Q12hr - BP control - Renal follow up - monitor Na - MVT, Thiamine, Folic Acid - Ativan PRN - ENT follow up for Trach and pharyngeal mass - GI ppx - DVT ppx - Stable, Monitor in MICU Critical care time 30 minutes
[2017-11-05 07:48] LABS: GRAN # 9.96 (1.4-6.5); GRAN % 86.1 % (50.0-68.0); LYMPH # 0.6 (1.2-3.4); LYMPH % 5.4 % (22.0-35.0); MEAN CELL VOLUME 87.9 fl (80.0-105.0); MEAN CORPUSCULAR HEMOGLOBIN 29.6 pg (25.0-35.0); MEAN CORPUSCULAR HGB CONC 33.6 g/dl (31.0-37.0); MEAN PLATELET VOLUME 9.7 fl (7.0-11.0); MONO % 8.5 % (1.0-6.0); RBC 3.72 10^6/uL (3.5-6.1); RED CELL DISTRIBUTION WIDTH 12.9 % (11.5-14.5); WHITE BLOOD COUNT 11.6 10^3/ul (4.5-11.0)
[2017-11-05 08:31] LABS: ALB/GLOB RATIO 1.1 (1.1-1.8); ALT/SGPT 44 U/L (7-56); AST/SGOT 34 U/L (17-59); BLOOD UREA NITROGEN 12 mg/dL (7-21); CALCIUM 9.2 mg/dL (8.4-10.5); GFR AFRICAN-AMERICAN > 60; GFR NON-AFRICAN AMERICAN > 60; MAGNESIUM 1.8 mg/dL (1.7-2.2)
[2017-11-05] MEDS: Fentanyl 1000mcg/100ml NS 1,000 MCG/100 ML BAG IV PRN ×2 (09:25→23:04)
--- NOTE | 2017-11-05 09:28 | CARD ---
APPROVED REPORT EXAM: Two-dimensional and M-mode echocardiogram with Doppler and color Doppler. Other Information Quality : AverageRhythm : INDICATION ELEVATED BNP/CHF 2D DIMENSIONS Left Atrium (2D)4.0 (1.6-4.0cm)IVSd1.0 (0.7-1.1cm) LVDd4.6 (3.9-5.9cm)PWd1.1 (0.7-1.1cm) LVDs3.5 (2.5-4.0cm)FS (%) 25.3 % LVEF (%)49.0 (>50%) M-Mode DIMENSIONS Aortic Root2.79 (2.2-3.7cm)Aortic Cusp Exc.1.66 (1.5-2.0cm) Aortic Valve AoV Peak Wppyswed838.8cm/Cristian Peak GR.4mmHg Mitral Valve MV E Kbvqqvii92.0cm/sMV DECEL [id number] A Fplfbsfi96.8cm/s E/A ratio1.1 TDI E/Lateral E'0.0E/Medial E'0.0 Pulmonary Valve PV Peak Fcqxclxa79.4cm/sPV Peak Grad.3mmHg Tricuspid Valve TR Peak [id number]/sRAP [id number] Peak Gr.26mmHg [id number] LEFT VENTRICLE The left ventricle is normal size. There is normal left ventricular wall thickness. Left ventricle systolic function is mildly impaired. The Ejection Fraction is 45-50%. There is mild global hypokinesis. RIGHT VENTRICLE The right ventricle is normal size. ATRIA The left atrium size is normal. The right atrium size is normal. The interatrial septum is intact with no evidence for an atrial septal defect. AORTIC VALVE The aortic valve is normal in structure. MITRAL VALVE The mitral valve is normal in structure. Mitral regurgitation is mild. TRICUSPID VALVE The tricuspid valve is normal in structure. There is mild tricuspid regurgitation. PULMONIC VALVE The pulmonic valve is not well visualized. GREAT VESSELS The aortic root is normal in size. PERICARDIAL EFFUSION There is no pericardial effusion. <Conclusion> The left ventricle is normal size. There is normal left ventricular wall thickness. Left ventricle systolic function is mildly impaired. The Ejection Fraction is 45-50%. Mitral regurgitation is mild. There is mild tricuspid regurgitation.
[2017-11-05] MEDS: Propofol 10 mg/ml 1,000 MG/100 ML VIAL IV PRN ×3 (09:29→23:05)
[2017-11-05] MEDS: Ammonium Lactate 12% Lotion (225 g) EXT SCH ×2 (09:30→21:25)
[2017-11-05] MEDS: MethylPREDNISolone 40 mg Vial IVP SCH ×2 (09:30→21:24)
[2017-11-05] MEDS: Azithromycin 250 MG in Sodium Chloride 0.9% 250 ML IVPB SCH (09:51)
--- NOTE | 2017-11-05 12:26 | CT ---
PROCEDURE: CT NECK WITH CONTRAST HISTORY: evaluate supraglottic mass COMPARISON: None TECHNIQUE: CT of the neck with intravenous contrast. Coronal and sagittal reformats generated. Intravenous contrast dose: 100 mL Omnipaque 350 Radiation dose: DLP 324.35 mGy-cm This CT exam was performed using one or more of the following dose reduction techniques: Automated exposure control, adjustment of the mA and/or kV according to patient size, and/or use of iterative reconstruction technique. FINDINGS: NASOPHARYNX: Within normal limits. SUPRAHYOID NECK: There is no bulky mass in the oropharynx, oral cavity, parapharyngeal space and retropharyngeal space. INFRAHYOID NECK: There is an approximately 2.7 x 2.0 x 4.5 cm enhancing soft tissue mass involving the left area epiglottic fold extending to the paraglottic space and invading the left thyroid cartilage with destruction of a portion of the posterior thyroid cartilage and extension beyond the margins of the thyroid cartilage. The mass also extends into the left posterior hypopharynx GLANDS: Parotid and submandibular glands unremarkable. Normal size thyroid gland, without nodule. LYMPH NODES: There are multiple enlarged left cervical chain lymph nodes including level 1 B, level 2, level 3 level 4 multiple level 5 and supraclavicular lymph nodes. Some of these lymph nodes demonstrate central necrosis, the largest lymph node measures 2.4 cm in transverse dimension. CERVICAL SPINE: No fracture or focal lesion. VASCULAR STRUCTURES: Unremarkable. OTHER FINDINGS: A tracheostomy tube remains in place. IMPRESSION: Large approximately 2.7 x 2.0 x 4.5 cm left supraglottic soft tissue mass extending involving the left aryepiglottic fold, paraglottic fat, left thyroid cartilage with destruction of the posterior cartilage and extension beyond the margin of the thyroid cartilage as well as posterior extension into the hypopharynx. 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
--- NOTE | 2017-11-05 13:24 | RAD ---
HISTORY: Intubated/follow up COMPARISON: 11/04/2017. FINDINGS: The endotracheal tube terminates 3.5 cm proximal to the deuce LUNGS: The lungs are clear. PLEURA: Suspect small pleural effusions, no pneumothorax apparent. CARDIOVASCULAR: Normal. OSSEOUS STRUCTURES: No significant abnormalities. VISUALIZED UPPER ABDOMEN: Normal. OTHER FINDINGS: None. IMPRESSION: Endotracheal tube is stable in position. Suspect small pleural effusions.
--- NOTE | 2017-11-05 14:31 | PN ---
DATE: SUBJECTIVE: The patient is currently seen in CCU bed 1. He remains intubated. He was extubated for a brief period of time yesterday, but because of altered mental status and a rising pCO2, he was placed back on the ventilator. The patient appears to be communicating with his family by writing. The patient's sodium level has normalized up to 137. He had a depletional hyponatremia. MEDICATIONS: Medication list reviewed. The patient is currently on albuterol, azithromycin, Cozaar, Diprivan, fentanyl, heparin, Lac-Hydrin, NicoDerm CQ, Precedex, Protonix, Rocephin and Solu-Medrol. OBJECTIVE: INTAKE/OUTPUT: Intake 2800, output 2600. VITAL SIGNS: Blood pressure is 141/87, heart rate is 53, temperature is 97.6 with a respiratory rate of 16 on the ventilator. HEENT: Shows him to be normocephalic, atraumatic. Eyes are open. The patient is intubated. NECK: Supple with no neck vein distention. CHEST: Scattered rhonchi. No rales or wheezing. CARDIOVASCULAR: Shows a regular rate and rhythm without audible murmurs or gallops or rubs. ABDOMEN: Soft, nondistended. Bowel sounds are normal. No rebound, no guarding. No masses. EXTREMITIES: Show no cyanosis, clubbing or edema. Distal lower extremity pulses are 2+. NEURO: Shows him to be alert, oriented, communicating by writing with his family in the room. LABORATORY DATA AND IMAGING: CBC: White blood cell count today 11.6, on steroids, slight elevation. Hemoglobin 11.0. Platelet count is 271,000. Blood gas this morning: PH is 7.47, pO2 is 159 with a pCO2 of 39. Chemistries: Normal electrolytes. Sodium is up to 137. BUN 12 with a creatinine of 0.7. Glucose is 109. Calcium 9.2 with a phosphorus of 4.6 and a magnesium of 1.8. Iron saturations are low at 17%. Ferritin level was 213. B12 and folate levels are normal. Microbiology: All cultures are negative at 48 hours. Repeat soft-tissue CT scan of the neck is pending. Chest x-ray done yesterday shows the lungs were well inflated and clear. No acute findings. Today's chest x-ray has been done, results are pending. ASSESSMENT: 1. Status post depletional hyponatremia. This was corrected with normal saline and 3% saline. Sodium is back to normal. 2. History of asthma with chronic obstructive pulmonary disease exacerbation. The patient is a lifelong cigarette smoker. The patient is presently intubated. He will continue inhalation therapy. He will continue steroids. He will continue empiric antibiotic therapy. All cultures have been negative to date. 3. History of anemia, in part secondary to iron deficiency, with negative cultures. The patient may receive Venofer 200 mg IV piggyback q. 48 hours x5 doses. 4. Status post mild hypomagnesemia. This has been corrected. PLAN: 1. The patient is stable from a renal standpoint. BUN and creatinine remain normal. Electrolytes are normal. Sodium level is normalized post supplementation. 2. I will give the patient Venofer as noted above in light of his iron-deficiency anemia. 3. Continue close pulmonary followup with perhaps plans at a second attempt at extubating the patient. 4. Continue to monitor labs on a daily basis. Magdaleno Shelby MD
--- NOTE | 2017-11-05 15:13 | CP.PCM.PN ---
<Deidra Fox - Last Filed: 11/05/17 15:09> Subjective - Date & Time of Evaluation Date of Evaluation: 11/05/17 Time of Evaluation: 15:10 - Subjective Subjective: Deidra Fox, PGY1, Medicine Progress Note for Dr Hinojosa: Patient seen and examined at bedside. No acute events overnight. Pt awake, alert , active, following commands, intubated, signaling that he would like to eat and drink. Denies confusion, fever, chills, nausea, vomiting, abdominal pain, leg swelling. Objective - Vital Signs/Intake and Output Vital Signs (last 24 hours): Temp Pulse Resp BP Pulse Ox 97.6 F 51 L 16 170/87 H 100 11/05/17 12:00 11/05/17 13:18 11/05/17 08:23 11/05/17 13:18 11/05/17 12:00 Intake and Output: 11/05/17 11/05/17 06:59 18:59 Intake Total 2740 288 Output Total 2600 700 Balance 140 -412 - Medications Medications: Current Medications Albuterol Sulfate (Albuterol 0.083% Inhal Snow (2.5 Mg/3 Ml) Ud) 2.5 mg IH Q2H PRN PRN Reason: Shortness of Breath Albuterol Sulfate (Albuterol 0.083% Inhal Snow (2.5 Mg/3 Ml) Ud) 2.5 mg INH [id number] [facility] Last Admin: 11/05/17 13:27 Dose: 2.5 mg Heparin Sodium (Porcine) (Heparin) 5,000 units SC Q12 FILOMENA PRN Reason: Protocol Last Admin: 11/05/17 09:29 Dose: 5,000 units Azithromycin 250 mg/ Sodium (Chloride) 250 mls @ 167 mls/hr IVPB DAILY FILOMENA PRN Reason: Protocol Last Admin: 11/05/17 09:51 Dose: 167 mls/hr Ceftriaxone Sodium (Rocephin 1 Gram Ivpb) 1 gm in 100 mls @ 100 mls/hr IVPB DAILY@2200 FILOMENA PRN Reason: Protocol Last Admin: 11/04/17 21:28 Dose: 100 mls/hr Dexmedetomidine HCl (Precedex 4 Mcg/Ml (100 Ml)) 400 mcg in 100 mls @ 2.345 mls /hr IV .Q24H PRN; Protocol; 0.2 MCG/KG/HR PRN Reason: Agitation Last Titration: 11/05/17 13:00 Dose: 0 mcg/kg/hr, 0 mls/hr Fentanyl Citrate (Fentanyl Citrate/Sodium Chloride 1 Mg/100 Ml) 1,000 mcg in 100 mls @ 2 mls/hr IV .Q24H PRN; Protocol; 20 MCG/HR PRN Reason: TITRATE PER MD ORDER Last Titration: 11/05/17 14:03 Dose: 0 mcg/hr, 0 mls/hr Propofol (Diprivan) 1,000 mg in 100 mls @ 1.633 mls/hr IV .Q24H PRN; Protocol; 5 MCG/KG/MIN PRN Reason: TITRATE PER MD ORDER Last Titration: 11/05/17 12:01 Dose: 55 mcg/kg/min, 17.962 mls/hr Lactic Acid (Lac-Hydrin 12% Lotion (225 G)) 1 gm EXT Q12 FILOMENA Last Admin: 11/05/17 09:30 Dose: 1 applic Losartan Potassium (Cozaar) 25 mg NG DAILY [facility] Last Admin: 11/05/17 13:18 Dose: 25 mg Methylprednisolone (Solu-Medrol) 40 mg IVP Q12 FILOMENA Last Admin: 11/05/17 09:30 Dose: 40 mg Nicotine (Nicoderm Cq) 1 patch TD DAILY [facility] Last Admin: 11/05/17 09:30 Dose: 1 patch Pantoprazole Sodium (Protonix Inj) 40 mg IVP DAILY [facility] Last Admin: 11/05/17 09:30 Dose: 40 mg - Labs Labs: 11/05/17 07:00 11/05/17 07:00 PT 14.2 SECONDS (9.4-12.5) H 11/02/17 19:35 INR 1.24 (0.93-1.08) H 11/02/17 19:35 APTT 24.6 Seconds (25.1-36.5) L 11/05/17 07:00 - Constitutional Appears: Non-toxic, No Acute Distress - Head Exam Head Exam: ATRAUMATIC, NORMOCEPHALIC - Eye Exam Eye Exam: EOMI, PERRL. absent: Conjunctival injection, Nystagmus, Scleral icterus Pupil Exam: PERRL. absent: Fixed, Irregular, Miosis, Unequal - ENT Exam ENT Exam: Mucous Membranes Moist - Neck Exam Neck Exam: Full ROM - Respiratory Exam Respiratory Exam: Clear to Ausculation Bilateral, NORMAL BREATHING PATTERN. absent: Accessory Muscle Use, Rales, Rhonchi, Wheezes, Respiratory Distress Additional comments: intubated - Cardiovascular Exam Cardiovascular Exam: RRR, +S1, +S2. absent: Murmur - GI/Abdominal Exam GI & Abdominal Exam: Soft, Normal Bowel Sounds. absent: Distended, Rigid, Tenderness, Mass, Organomegaly, Rebound - Extremities Exam Extremities Exam: Full ROM, Normal Inspection. absent: Calf Tenderness, Pedal Edema - Back Exam Back Exam: NORMAL INSPECTION - Neurological Exam Neurological Exam: Alert, Awake, Oriented x3 - Psychiatric Exam Psychiatric exam: Normal Affect, Normal Mood - Skin Skin Exam: Dry, Normal Color, Warm Assessment and Plan - Assessment and Plan (Free Text) Assessment: 52 yo male with PMH asthma, COPD?, tobacco abuse, possible alcohol abuse admitted for hypercapneic respiratory failure (2/2 likely laryngeal mass), hyponatremia, leukocytosis, indeterminate trops. Pt to undergo CT neck soft tissue: Hypercapneic respiratory failure: 2/2 laryngeal mass vs COPD/asthma vs heart failure - CT neck soft tissue today showed Large 2.7 x 2.0 x 4.5 cm left supraglottic soft tissue mass extending involving the left aryepiglottic fold, paraglottic fat, left thyroid cartilage with destruction of the posterior cartilage and extension beyond the margin of the thyroid cartilage as well as posterior extension into the hypopharynx. 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 - ENT consult. appreciate recs. - Intubated on prvc - Solumedrol 40 q 12 - Duonebs filomena and prn - hx of asthma and COPD - HOB elevated, aspiration precaution - IV antibiotics azithro and rocephine Hyponatremia: likely hypovolemic 2/2 dehydration vs vomiting/diarrhea vs beer [place] - resolved - Jannette <5 - Nephro consulted. appreciate recs. AMS: 2/2 CO2 narcosis - Head CT negative - UDS, ETOH levels neg - Neuro checks - Cont to monitor Anemia, mild: - likely mixed: iron deficiency and ACD - Fe low, tibc low, percent sat low, normal ferritin - Cont to monitor Indeterminate trops: likely demand ischemia - 0.03->0.05->0.04 - Cardio consult. appreciate recs. - Echo showed EF 49%. left ventricle systolic function mildly impaired. Mild mitral regurg. mild TR. Alcohol withdrawal: - on propofol/precedex Tobacco abuse: - Nicotine patch GI ppx: Protonix DVT ppx: Heparin SC Discussed with Dr Hinojosa. <Casey Hinojosa - Last Filed: 11/05/17 17:21> Objective - Vital Signs/Intake and Output Vital Signs (last 24 hours): Temp Pulse Resp BP Pulse Ox 97.8 F 52 L 16 175/112 H 100 11/05/17 16:00 11/05/17 16:20 11/05/17 16:00 11/05/17 16:00 11/05/17 16:20 Intake and Output: 11/05/17 11/05/17 06:59 18:59 Intake Total 2740 903 Output Total 2600 1000 Balance 140 -97 - Medications Medications: Current Medications Albuterol Sulfate (Albuterol 0.083% Inhal Snow (2.5 Mg/3 Ml) Ud) 2.5 mg IH Q2H PRN PRN Reason: Shortness of Breath Albuterol Sulfate (Albuterol 0.083% Inhal Snow (2.5 Mg/3 Ml) Ud) 2.5 mg INH [id number] [facility] Last Admin: 11/05/17 13:27 Dose: 2.5 mg Heparin Sodium (Porcine) (Heparin) 5,000 units SC Q12 FILOMENA PRN Reason: Protocol Last Admin: 11/05/17 09:29 Dose: 5,000 units Hydralazine HCl (Apresoline) 10 mg IVP Q6 PRN PRN Reason: Systolic Blood Pressure Azithromycin 250 mg/ Sodium (Chloride) 250 mls @ 167 mls/hr IVPB DAILY [facility] PRN Reason: Protocol Last Admin: 11/05/17 09:51 Dose: 167 mls/hr Ceftriaxone Sodium (Rocephin 1 Gram Ivpb) 1 gm in 100 mls @ 100 mls/hr IVPB DAILY@2200 FILOMENA PRN Reason: Protocol Last Admin: 11/04/17 21:28 Dose: 100 mls/hr Dexmedetomidine HCl (Precedex 4 Mcg/Ml (100 Ml)) 400 mcg in 100 mls @ 2.345 mls /hr IV .Q24H PRN; Protocol; 0.2 MCG/KG/HR PRN Reason: Agitation Last Titration: 11/05/17 13:00 Dose: 0 mcg/kg/hr, 0 mls/hr Fentanyl Citrate (Fentanyl Citrate/Sodium Chloride 1 Mg/100 Ml) 1,000 mcg in 100 mls @ 2 mls/hr IV .Q24H PRN; Protocol; 20 MCG/HR PRN Reason: TITRATE PER MD ORDER Last Titration: 11/05/17 16:49 Dose: 50 mcg/hr, 5 mls/hr Propofol (Diprivan) 1,000 mg in 100 mls @ 1.633 mls/hr IV .Q24H PRN; Protocol; 5 MCG/KG/MIN PRN Reason: TITRATE PER MD ORDER Last Admin: 11/05/17 16:47 Dose: 55 mcg/kg/min, 17.962 mls/hr Lactic Acid (Lac-Hydrin 12% Lotion (225 G)) 1 gm EXT Q12 FILOMENA Last Admin: 11/05/17 09:30 Dose: 1 applic Losartan Potassium (Cozaar) 25 mg NG DAILY [facility] Last Admin: 11/05/17 13:18 Dose: 25 mg Methylprednisolone (Solu-Medrol) 40 mg IVP Q12 [facility] Last Admin: 11/05/17 09:30 Dose: 40 mg Nicotine (Nicoderm Cq) 1 patch TD DAILY [facility] Last Admin: 11/05/17 09:30 Dose: 1 patch Pantoprazole Sodium (Protonix Inj) 40 mg IVP DAILY [facility] Last Admin: 11/05/17 09:30 Dose: 40 mg - Labs Labs: 11/05/17 07:00 11/05/17 07:00 PT 14.2 SECONDS (9.4-12.5) H 11/02/17 19:35 INR 1.24 (0.93-1.08) H 11/02/17 19:35 APTT 24.6 Seconds (25.1-36.5) L 11/05/17 07:00 Attending/Attestation - Attestation I have personally seen and examined this patient.: Yes I have fully participated in the care of the patient.: Yes I have reviewed all pertinent clinical information, including history, physical exam and plan: Yes Notes (Text): 11/05/17 17:17 52 year old male with past medical history of COPD and alcohol abuse who presented with hypercapnic respiratory failure s/p intubation. He failed extubation yesterday. He is on duonebs, antibiotics and iv steroids. Repeat CT neck was reviewed as above. Will follow up with ENT recommendations. Hyponatremia has improved since admission. Nephrology is following. Cardiology is following for indeterminate troponins. Echocardiogram was reviewed. Patient is started on losartan. Will hydralazine prn for hypertension. Casey Hinojosa MD Hospitalist.
--- NOTE | 2017-11-05 15:26 | RAD ---
HISTORY: Oral gastric tube placement COMPARISON: 11/05/2017 FINDINGS: LUNGS: Linear scar/atelectasis at left base. No acute infiltrate. PLEURA: Slight blunting of both costophrenic angles reflecting pleural effusion or chronic pleural thickening. CARDIOVASCULAR: Normal heart size. Endotracheal tube unchanged. New feeding tube placement in left upper quadrant of abdomen. OSSEOUS STRUCTURES: No significant abnormalities. VISUALIZED UPPER ABDOMEN: Normal. OTHER FINDINGS: None. IMPRESSION: New feeding tube placed in left upper quadrant of abdomen. Otherwise no significant change.
--- NOTE | 2017-11-05 15:39 | PN ---
DATE: SUBJECTIVE: The patient is awake and cooperative, on a ventilator. He denies any chest pain. OBJECTIVE: VITAL SIGNS: Blood pressure 141/87, heart rate 53, and temperature 97.6. HEENT: Normocephalic. CHEST: Bilateral rhonchi. HEART: S1 and S2, regular EXTREMITIES: No edema. LABORATORY DATA: Today's hemoglobin and hematocrit 11 and 32.7, white count 11.6, and platelet count 171,000. Today's SMA-7 is within normal limits except for creatinine of 0.7. Today's chest x-ray revealed minimal bilateral alveolar infiltrates. I did review the ENT specialist evaluation. 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 At some point, the patient would require biopsy. Exact time is yet to be determined. The patient underwent repeat soft tissue CT scan of the head and neck and the report is still pending. ASSESSMENT: 1. Recurrent respiratory failure. 2. Rule out laryngeal mass. 3. Chronic obstructive lung disease. 4. Mildly depressed ejection fraction which was estimated between 45% and 50% on echocardiogram study. RECOMMENDATIONS: Continue current albuterol inhaler. Continue IV Zithromax and IV Rocephin. Continue subcutaneous heparin. Start Cozaar 25 mg daily via nasogastric tube. Finn Dlaey MD
[2017-11-05] MEDS: cefTRIAXone 1 gm 1 GM/100 ML BAG IVPB SCH (21:24)
[2017-11-06] MEDS: Albuterol 0.083% Inhal Sol (2.5 mg/3 mL) UD INH SCH ×4 (01:30→20:47)
[2017-11-06] MEDS: Propofol 10 mg/ml 1,000 MG/100 ML VIAL IV PRN (04:13)
[2017-11-06 07:16] LABS: GRAN # 7.49 (1.4-6.5); GRAN % 85.4 % (50.0-68.0); HEMOGLOBIN 11.2 g/dL (14.0-18.0); LYMPH # 0.6 (1.2-3.4); LYMPH % 6.9 % (22.0-35.0); MEAN CELL VOLUME 88.4 fl (80.0-105.0); MEAN CORPUSCULAR HEMOGLOBIN 29.6 pg (25.0-35.0); MEAN CORPUSCULAR HGB CONC 33.4 g/dl (31.0-37.0); MEAN PLATELET VOLUME 10.1 fl (7.0-11.0); MONO # 0.7 (0.1-0.6); MONO % 7.7 % (1.0-6.0); RBC 3.79 10^6/uL (3.5-6.1); RED CELL DISTRIBUTION WIDTH 13.1 % (11.5-14.5); WHITE BLOOD COUNT 8.8 10^3/ul (4.5-11.0)
[2017-11-06 07:18] LABS: ARTERIAL BLOOD GAS HCO3 29.8 mmol/L (21-28); ARTERIAL BLOOD GAS HEMOGLOBIN 13.2 g/dL (11.7-17.4); ARTERIAL BLOOD GAS O2 CAPACITY 18.2 mL/dl (16-24); ARTERIAL BLOOD GAS O2 CONTENT 17.9 ML/dl (15-23); ARTERIAL BLOOD GAS O2 SAT 98.6 % (95-98); ARTERIAL BLOOD GAS PCO2 40 mm/Hg (35-45); ARTERIAL BLOOD GAS PH 7.48 (7.35-7.45)
--- NOTE | 2017-11-06 07:23 | CP.CCUPN ---
<Kinga Boateng - Last Filed: 11/06/17 11:58> CCU Subjective - Physician Review Subjective (Free Text): 11/06/17 09:40 No overnight acute events. Afebrile, normothermic. Minimally sedated on propofol and fentanyl. Critical Care Time Spent (in minutes): 45 CCU Objective - Vital Signs / Intake & Output Vital Signs (Last 4 hours): Vital Signs Temp Pulse Resp BP Pulse Ox 11/06/17 06:15 53 L 16 98 11/06/17 06:14 53 L 16 98 11/06/17 06:13 52 L 16 98 11/06/17 06:12 53 L 16 99 11/06/17 06:11 54 L 16 99 11/06/17 06:10 54 L 16 99 11/06/17 06:09 52 L 17 99 11/06/17 06:08 53 L 16 99 11/06/17 06:07 55 L 16 99 11/06/17 06:06 67 16 99 11/06/17 06:05 68 16 98 11/06/17 06:04 66 16 98 11/06/17 06:03 75 20 98 11/06/17 06:02 61 16 96 11/06/17 06:01 56 L 17 97 11/06/17 06:00 63 127/72 11/06/17 05:59 59 L 16 97 11/06/17 05:58 62 16 97 11/06/17 05:57 64 16 97 11/06/17 05:56 62 16 97 11/06/17 05:55 63 16 97 11/06/17 05:54 57 L 16 98 11/06/17 05:53 55 L 16 97 11/06/17 05:52 58 L 18 97 11/06/17 05:51 54 L 16 98 11/06/17 05:50 56 L 16 98 11/06/17 05:49 61 16 99 11/06/17 05:48 69 16 99 11/06/17 05:47 74 16 99 11/06/17 05:46 81 19 99 11/06/17 05:45 67 16 98 11/06/17 05:44 68 16 98 11/06/17 05:43 64 16 98 11/06/17 05:42 76 16 98 11/06/17 05:41 76 16 98 11/06/17 05:40 76 16 98 11/06/17 05:39 76 16 98 11/06/17 05:38 81 16 98 11/06/17 05:37 75 16 98 11/06/17 05:36 80 16 98 11/06/17 05:35 62 16 97 11/06/17 05:34 68 16 98 11/06/17 05:33 72 16 98 11/06/17 05:32 71 16 98 11/06/17 05:31 80 16 98 11/06/17 05:30 156/89 H 11/06/17 05:29 85 16 99 11/06/17 05:28 83 16 98 11/06/17 05:27 93 H 16 99 11/06/17 05:26 87 18 98 11/06/17 04:00 97.5 F L Intake and Output (Last 8hrs): Intake & Output 11/05/17 11/06/17 11/06/17 22:59 06:59 14:59 Intake Total 715 532 Output Total 300 700 Balance 415 -168 Weight 100 lb 11.2 oz Intake: IV 715 532 Left Forearm 250 100 Propofol 101 224 fentanyl 79 68 precedex 105 Output: Urine 300 700 2-way Urethral 300 700 - Physical Exam Head: Positive for: Atraumatic, Normocephalic Pupils: Positive for: PERRL Extroacular Muscles: Positive for: EOMI Conjunctiva: Positive for: Normal Ears: Positive for: Normal Mouth: Positive for: Moist Mucous Membranes Pharnyx: Positive for: Normal Nose (External): Positive for: Atraumatic Nose (Internal): Positive for: Normal Inspection Neck: Positive for: Normal Range of Motion Respiratory/Chest: Positive for: Wheezes (diffusely). Negative for: Clear to Auscultation, Respiratory Distress, Accessory Muscle Use, Decreased Breath Sounds, Rales, Retracting, Rhonchi, Tachypneic, Tender to Palpation Cardiovascular: Positive for: Regular Rate and Rhythm, Normal S1, S2, Tachycardic Abdomen: Negative for: Tenderness, Distention, Normal Bowel Sounds, Peritoneal Signs, Rebound, Guarding, McBurney's Point Tender, Rovsing's Sign Present, Hernias, Feeding Tubes, Ostomy Tubes, Mass/Organomegaly, Scars, Other Back: Positive for: Normal Inspection Upper Extremity: Positive for: Normal Inspection Lower Extremity: Positive for: Normal Inspection Neurological: Positive for: GCS=15, Motor Func Grossly Intact Skin: Positive for: Warm, Normal Color Psychiatric: Positive for: Alert - Medications Active Medications: Active Medications Generic Name Dose Route Start Last Admin Trade Name Freq PRN Reason Stop Dose Admin Albuterol Sulfate 2.5 mg 11/02/17 21:44 Albuterol 0.083% Inhal Snow (2.5 Mg/3 Ml) Ud IH Q2H PRN Shortness of Breath Albuterol Sulfate 2.5 mg 11/03/17 14:00 11/06/17 01:30 Albuterol 0.083% Inhal Snow (2.5 Mg/3 Ml) Ud INH 2.5 mg [id number] SOLEDAD Administration Heparin Sodium (Porcine) 5,000 units 11/03/17 10:00 11/05/17 21:25 Heparin SC 5,000 units Q12 SOLEDAD Administration Protocol Hydralazine HCl 10 mg 11/05/17 17:16 Apresoline IVP Q6 PRN Systolic Blood Pressure >180 Azithromycin 250 mg/ Sodium 250 mls @ 167 mls/hr 11/03/17 10:00 11/05/17 09: 51 Chloride IVPB 167 mls/hr DAILY SOLEDAD Administration Protocol Ceftriaxone Sodium 1 gm in 100 mls @ 100 mls/hr 11/03/17 10:57 11/05/17 21:24 Rocephin 1 Gram Ivpb IVPB 100 mls/hr DAILY@2200 SOLEDAD Administration Protocol Dexmedetomidine HCl 400 mcg in 100 mls @ 2.345 mls/hr 11/04/17 13:49 13:00 Precedex 4 Mcg/Ml (100 Ml) IV 0 mcg/kg/hr .Q24H PRN 0 mls/hr Agitation Titration Protocol 0.2 MCG/KG/HR Fentanyl Citrate 1,000 mcg in 100 mls @ 2 mls/hr 11/04/17 13:49 11/05/17 23: 04 Fentanyl Citrate/Sodium Chloride 1 Mg/100 Ml IV 60 mcg/hr .Q24H PRN 6 mls/hr TITRATE PER MD ORDER Administration Protocol 20 MCG/HR Propofol 1,000 mg in 100 mls @ 1.633 mls/hr 11/05/17 09:18 11/06/17 04:13 Diprivan IV 60 mcg/kg/min .Q24H PRN 19.595 mls/hr TITRATE PER MD ORDER Administration Protocol 5 MCG/KG/MIN Lactic Acid 1 gm 11/04/17 22:00 11/05/17 21:25 Lac-Hydrin 12% Lotion (225 G) EXT 1 applic Q12 SOLEDAD Administration Losartan Potassium 25 mg 11/05/17 11:15 11/05/17 13:18 Cozaar NG 25 mg DAILY SOLEDAD Administration Methylprednisolone 40 mg 11/03/17 10:00 11/05/17 21:24 Solu-Medrol IVP 40 mg Q12 SOLEDAD Administration Nicotine 1 patch 11/04/17 10:00 11/05/17 09:30 Nicoderm Cq TD 1 patch DAILY SOLEDAD Administration Pantoprazole Sodium 40 mg 11/03/17 10:00 11/05/17 09:30 Protonix Inj IVP 40 mg DAILY SOLEDAD Administration - Patient Studies Lab Studies: Lab Studies 11/06/17 11/06/17 11/05/17 Range/Units 07:00 05:30 07:00 WBC 8.8 D (4.5-11.0) 10^3/ul RBC 3.79 (3.5-6.1) 10^6/uL Hgb 11.2 L (14.0-18.0) g/dL Hct 33.5 L (42.0-52.0) % MCV 88.4 (80.0-105.0) fl MCH 29.6 (25.0-35.0) pg MCHC 33.4 (31.0-37.0) g/dl RDW 13.1 (11.5-14.5) % Plt Count 280 (120.0-450.0) 10^3/uL MPV 10.1 (7.0-11.0) fl Gran % 85.4 H (50.0-68.0) % Lymph % (Auto) 6.9 L (22.0-35.0) % Moore % (Auto) 7.7 H (1.0-6.0) % Eos % (Auto) 0.0 L (1.5-5.0) % Baso % (Auto) 0.0 (0.0-3.0) % Gran # 7.49 H (1.4-6.5) Lymph # (Auto) 0.6 L (1.2-3.4) Moore # (Auto) 0.7 H (0.1-0.6) Eos # (Auto) 0.0 (0.0-0.7) Baso # (Auto) 0.00 (0.0-2.0) K/mm3 APTT 24.6 L (25.1-36.5) Seconds pCO2 40 (35-45) mm/Hg pO2 85.0 (80-100) mm/Hg HCO3 29.8 H (21-28) mmol/L ABG pH 7.48 H (7.35-7.45) ABG Total CO2 31.0 H (22-28) mmol.L ABG O2 Saturation 98.6 H (95-98) % ABG O2 Content 17.9 (15-23) ML/dl ABG Base Excess 5.8 H (-2.0-3.0) mmol/L ABG Hemoglobin 13.2 (11.7-17.4) g/dL ABG Carboxyhemoglobin 1.3 (0.5-1.5) % POC ABG HHb (Measured) 1.4 (0-5) % ABG Methemoglobin 1.3 (0.0-3.0) % ABG O2 Capacity 18.2 (16-24) mL/dl Hgb O2 Saturation 96.0 (95.0-98.0) % FiO2 40.0 % Sodium (132-148) mmol/L Potassium (3.6-5.0) mmol/L Chloride (98-107) mmol/L Carbon Dioxide (21-33) mmol/L Anion Gap (10-20) BUN (7-21) mg/dL Creatinine (0.8-1.5) mg/dl Est GFR ( Amer) Est GFR (Non-Af Amer) Random Glucose (70-110) mg/dL Calcium (8.4-10.5) mg/dL Phosphorus (2.5-4.5) mg/dL Magnesium (1.7-2.2) mg/dL Total Bilirubin (0.2-1.3) mg/dL AST (17-59) U/L ALT (7-56) U/L Alkaline Phosphatase (38-126) U/L Total Protein (5.8-8.3) g/dL Albumin (3.0-4.8) g/dL Globulin gm/dL Albumin/Globulin Ratio (1.1-1.8) Urine Chloride (32-290) mmol/L Mycoplasma pneumon IgM (<770) U/mL 11/05/17 11/05/17 11/03/17 Range/Units 07:00 07:00 02:00 WBC 11.6 H D (4.5-11.0) 10^3/ul RBC 3.72 (3.5-6.1) 10^6/uL Hgb 11.0 L (14.0-18.0) g/dL Hct 32.7 L (42.0-52.0) % MCV 87.9 (80.0-105.0) fl MCH 29.6 (25.0-35.0) pg MCHC 33.6 (31.0-37.0) g/dl RDW 12.9 (11.5-14.5) % Plt Count 271 (120.0-450.0) 10^3/uL MPV 9.7 (7.0-11.0) fl Gran % 86.1 H (50.0-68.0) % Lymph % (Auto) 5.4 L (22.0-35.0) % Moore % (Auto) 8.5 H (1.0-6.0) % Eos % (Auto) 0.0 L (1.5-5.0) % Baso % (Auto) 0.0 (0.0-3.0) % Gran # 9.96 H (1.4-6.5) Lymph # (Auto) 0.6 L (1.2-3.4) Moore # (Auto) 1.0 H (0.1-0.6) Eos # (Auto) 0.0 (0.0-0.7) Baso # (Auto) 0.00 (0.0-2.0) K/mm3 APTT (25.1-36.5) Seconds pCO2 (35-45) mm/Hg pO2 (80-100) mm/Hg HCO3 (21-28) mmol/L ABG pH (7.35-7.45) ABG Total CO2 (22-28) mmol.L ABG O2 Saturation (95-98) % ABG O2 Content (15-23) ML/dl ABG Base Excess (-2.0-3.0) mmol/L ABG Hemoglobin (11.7-17.4) g/dL ABG Carboxyhemoglobin (0.5-1.5) % POC ABG HHb (Measured) (0-5) % ABG Methemoglobin (0.0-3.0) % ABG O2 Capacity (16-24) mL/dl Hgb O2 Saturation (95.0-98.0) % FiO2 % Sodium 137 (132-148) mmol/L Potassium 3.7 (3.6-5.0) mmol/L Chloride 98 (98-107) mmol/L Carbon Dioxide 32 (21-33) mmol/L Anion Gap 11 (10-20) BUN 12 (7-21) mg/dL Creatinine 0.7 L (0.8-1.5) mg/dl Est GFR ( Amer) > 60 Est GFR (Non-Af Amer) > 60 Random Glucose 109 (70-110) mg/dL Calcium 9.2 (8.4-10.5) mg/dL Phosphorus 4.6 H (2.5-4.5) mg/dL Magnesium 1.8 (1.7-2.2) mg/dL Total Bilirubin 0.3 (0.2-1.3) mg/dL AST 34 (17-59) U/L ALT 44 (7-56) U/L Alkaline Phosphatase 70 (38-126) U/L Total Protein 5.7 L (5.8-8.3) g/dL Albumin 3.0 (3.0-4.8) g/dL Globulin 2.7 gm/dL Albumin/Globulin Ratio 1.1 (1.1-1.8) Urine Chloride 15 L (32-290) mmol/L Mycoplasma pneumon IgM (<770) U/mL 11/03/17 Range/Units 01:03 WBC (4.5-11.0) 10^3/ul RBC (3.5-6.1) 10^6/uL Hgb (14.0-18.0) g/dL Hct (42.0-52.0) % MCV (80.0-105.0) fl MCH (25.0-35.0) pg MCHC (31.0-37.0) g/dl RDW (11.5-14.5) % Plt Count (120.0-450.0) 10^3/uL MPV (7.0-11.0) fl Gran % (50.0-68.0) % Lymph % (Auto) (22.0-35.0) % Moore % (Auto) (1.0-6.0) % Eos % (Auto) (1.5-5.0) % Baso % (Auto) (0.0-3.0) % Gran # (1.4-6.5) Lymph # (Auto) (1.2-3.4) Moore # (Auto) (0.1-0.6) Eos # (Auto) (0.0-0.7) Baso # (Auto) (0.0-2.0) K/mm3 APTT (25.1-36.5) Seconds pCO2 (35-45) mm/Hg pO2 (80-100) mm/Hg HCO3 (21-28) mmol/L ABG pH (7.35-7.45) ABG Total CO2 (22-28) mmol.L ABG O2 Saturation (95-98) % ABG O2 Content (15-23) ML/dl ABG Base Excess (-2.0-3.0) mmol/L ABG Hemoglobin (11.7-17.4) g/dL ABG Carboxyhemoglobin (0.5-1.5) % POC ABG HHb (Measured) (0-5) % ABG Methemoglobin (0.0-3.0) % ABG O2 Capacity (16-24) mL/dl Hgb O2 Saturation (95.0-98.0) % FiO2 % Sodium (132-148) mmol/L Potassium (3.6-5.0) mmol/L Chloride (98-107) mmol/L Carbon Dioxide (21-33) mmol/L Anion Gap (10-20) BUN (7-21) mg/dL Creatinine (0.8-1.5) mg/dl Est GFR ( Amer) Est GFR (Non-Af Amer) Random Glucose (70-110) mg/dL Calcium (8.4-10.5) mg/dL Phosphorus (2.5-4.5) mg/dL Magnesium (1.7-2.2) mg/dL Total Bilirubin (0.2-1.3) mg/dL AST (17-59) U/L ALT (7-56) U/L Alkaline Phosphatase (38-126) U/L Total Protein (5.8-8.3) g/dL Albumin (3.0-4.8) g/dL Globulin gm/dL Albumin/Globulin Ratio (1.1-1.8) Urine Chloride (32-290) mmol/L Mycoplasma pneumon IgM 183 (<770) U/mL Laboratory Results - last 24 hr 11/03/17 11/03/17 11/05/17 01:03 02:00 07:00 WBC 11.6 H D RBC 3.72 Hgb 11.0 L Hct 32.7 L MCV 87.9 MCH 29.6 MCHC 33.6 RDW 12.9 Plt Count 271 MPV 9.7 Gran % 86.1 H Lymph % (Auto) 5.4 L Moore % (Auto) 8.5 H Eos % (Auto) 0.0 L Baso % (Auto) 0.0 Gran # 9.96 H Lymph # (Auto) 0.6 L Moore # (Auto) 1.0 H Eos # (Auto) 0.0 Baso # (Auto) 0.00 APTT pCO2 pO2 HCO3 ABG pH ABG Total CO2 ABG O2 Saturation ABG O2 Content ABG Base Excess ABG Hemoglobin ABG Carboxyhemoglobin POC ABG HHb (Measured) ABG Methemoglobin ABG O2 Capacity Hgb O2 Saturation FiO2 Sodium Potassium Chloride Carbon Dioxide Anion Gap BUN Creatinine Est GFR ( Amer) Est GFR (Non-Af Amer) Random Glucose Calcium Phosphorus Magnesium Total Bilirubin AST ALT Alkaline Phosphatase Total Protein Albumin Globulin Albumin/Globulin Ratio Urine Chloride 15 L Mycoplasma pneumon IgM 183 11/05/17 11/05/17 11/06/17 07:00 07:00 05:30 WBC 8.8 D RBC 3.79 Hgb 11.2 L Hct 33.5 L MCV 88.4 MCH 29.6 MCHC 33.4 RDW 13.1 Plt Count 280 MPV 10.1 Gran % 85.4 H Lymph % (Auto) 6.9 L Moore % (Auto) 7.7 H Eos % (Auto) 0.0 L Baso % (Auto) 0.0 Gran # 7.49 H Lymph # (Auto) 0.6 L Moore # (Auto) 0.7 H Eos # (Auto) 0.0 Baso # (Auto) 0.00 APTT 24.6 L pCO2 pO2 HCO3 ABG pH ABG Total CO2 ABG O2 Saturation ABG O2 Content ABG Base Excess ABG Hemoglobin ABG Carboxyhemoglobin POC ABG HHb (Measured) ABG Methemoglobin ABG O2 Capacity Hgb O2 Saturation FiO2 Sodium 137 Potassium 3.7 Chloride 98 Carbon Dioxide 32 Anion Gap 11 BUN 12 Creatinine 0.7 L Est GFR ( Amer) > 60 Est GFR (Non-Af Amer) > 60 Random Glucose 109 Calcium 9.2 Phosphorus 4.6 H Magnesium 1.8 Total Bilirubin 0.3 AST 34 ALT 44 Alkaline Phosphatase 70 Total Protein 5.7 L Albumin 3.0 Globulin 2.7 Albumin/Globulin Ratio 1.1 Urine Chloride Mycoplasma pneumon IgM 11/06/17 07:00 WBC RBC Hgb Hct MCV MCH MCHC RDW Plt Count MPV Gran % Lymph % (Auto) Moore % (Auto) Eos % (Auto) Baso % (Auto) Gran # Lymph # (Auto) Moore # (Auto) Eos # (Auto) Baso # (Auto) APTT pCO2 40 pO2 85.0 HCO3 29.8 H ABG pH 7.48 H ABG Total CO2 31.0 H ABG O2 Saturation 98.6 H ABG O2 Content 17.9 ABG Base Excess 5.8 H ABG Hemoglobin 13.2 ABG Carboxyhemoglobin 1.3 POC ABG HHb (Measured) 1.4 ABG Methemoglobin 1.3 ABG O2 Capacity 18.2 Hgb O2 Saturation 96.0 FiO2 40.0 Sodium Potassium Chloride Carbon Dioxide Anion Gap BUN Creatinine Est GFR ( Amer) Est GFR (Non-Af Amer) Random Glucose Calcium Phosphorus Magnesium Total Bilirubin AST ALT Alkaline Phosphatase Total Protein Albumin Globulin Albumin/Globulin Ratio Urine Chloride Mycoplasma pneumon IgM Critical Care Progress Note - Ventilator Checklist Head of Bed 30 Degrees: Yes Daily Sedation Vacation: Yes Daily Assessment of Readiness to Wean: Yes Daily Spontaneous Breathing Trial: Yes PUD Prophalyxis: Yes DVT Prophylaxis: Yes Oral Care with Chlorhexidine Gluconate {CHG}: Yes - Vent Settings MODE:: PRVC - Extremities/Vascular Does the Patient have a Central Venous Catheter?: No Catheter Insertion Criteria: Patient requires prolonged immobilization - Restraints Justification for Restraints: High risk for self extubation - Prophylaxis GI Prophylaxis GI: PPI - Prophylaxis DVT Prophylaxis DVT: Heparin SQ - Nutrition Nutrition: Nutrition Category Date Time Status NPO Diet [DIET] Diets 11/02/17 Breakfast Ordered Assessment/Plan - Assessment and Plan (Free Text) Assessment: Patient is a 52 y/o with PMHx significant for alcohol abuse and copd admitted with hyponatremia and hypercapneic respiratory failure for which patient required intubation. During the coarse of initial intubation patient was noted to have tracheal mass. Patient subsequently did well and was extubated. Patient then developed changes in mental status with severe CO2 retention and had to be reintubate, and again the tracheal mass was apparent and obvious during the reintubation. ENT was consulted, patient had CT soft tissue which confirmed supraglotic mass invading the surrounding areas, including mediatinal lymphadenopathes suspicious for cancer. Patient is currently tolerating pressor support and is scheduled for trach today. Plan: Neurology: Mental status improved, minimally sedated on propofol and fentanyl. Pulm- Hypercapneic respiratory failure likely due to COPD exacerbation superimposed with mechanical obstruction from supraglottis mass. s/p intubation and extubation, - Continue with protected lung ventilation strategies - duonebs prn and standing dose. - Solumedrol tapering dose - Pulm toileting, oral care, and ppi. - head of bed above 35 degrees - On abx for copd exacerbation - Trach and possible biopsy of the mass today Cardio: Patient is hemodynamically stable Will monitor and maintain MAP above 65% echo with lvef of 45-50% Hydralazine prn for sbp above 160. Renal: Hyponatremia - resolved - Will continue to monitor renal function Endo: Will maintain euglycemia Heme: h/h stable, will continue to monitor ID: - On rocephin/ zithromax/ vanco for copd exacerbation. - Mild leukocytosis likely due to solu medrol - not febrile, and no growth on cultures. procal is also low. GI: currently NPO, On ppi for Gi prophylaxis. Tobacco abuse- nicotine patch DVT prophylaxis: heparin sc on hold for trach. Dispo- trach today, and placement to be determine. Patient seen, examined and case discussed with Dr Castillo. - Date & Time Date: 11/06/17 Time: 09:50 <Eliezer Castillo - Last Filed: 11/06/17 14:26> CCU Objective - Vital Signs / Intake & Output Vital Signs (Last 4 hours): Vital Signs Pulse BP 11/06/17 12:05 92 H 196/107 H 11/06/17 12:04 92 H 196/107 H Intake and Output (Last 8hrs): Intake & Output 11/05/17 11/06/17 11/06/17 22:59 06:59 14:59 Intake Total 715 532 Output Total 300 700 Balance 415 -168 Weight 100 lb 11.2 oz 100 lb Intake: IV 715 532 Left Forearm 250 100 Propofol 101 224 fentanyl 79 68 precedex 105 Output: Urine 300 700 2-way Urethral 300 700 - Medications Active Medications: Active Medications Generic Name Dose Route Start Last Admin Trade Name Freq PRN Reason Stop Dose Admin Albuterol Sulfate 2.5 mg 11/02/17 21:44 Albuterol 0.083% Inhal Snow (2.5 Mg/3 Ml) Ud IH Q2H PRN Shortness of Breath Albuterol Sulfate 2.5 mg 11/03/17 14:00 11/06/17 13:40 Albuterol 0.083% Inhal Snow (2.5 Mg/3 Ml) Ud INH Not Given [id number] SOLEDAD Clonidine HCl 0.1 mg 11/06/17 10:45 11/06/17 12:05 Catapres NG 0.1 mg BID SOLEDAD Administration Heparin Sodium (Porcine) 5,000 units 11/03/17 10:00 11/06/17 09:38 Heparin SC Not Given Q12 SOLEDAD Protocol Hydralazine HCl 10 mg 11/05/17 17:16 11/06/17 12:04 Apresoline IVP 10 mg Q6 PRN Administration Systolic Blood Pressure >180 Azithromycin 250 mg/ Sodium 250 mls @ 167 mls/hr 11/03/17 10:00 11/06/17 09: 35 Chloride IVPB 167 mls/hr DAILY SOLEDAD Administration Protocol Ceftriaxone Sodium 1 gm in 100 mls @ 100 mls/hr 11/03/17 10:57 11/05/17 21:24 Rocephin 1 Gram Ivpb IVPB 100 mls/hr DAILY@2200 SOLEDAD Administration Protocol Dexmedetomidine HCl 400 mcg in 100 mls @ 2.345 mls/hr 11/04/17 13:49 13:00 Precedex 4 Mcg/Ml (100 Ml) IV 0 mcg/kg/hr .Q24H PRN 0 mls/hr Agitation Titration Protocol 0.2 MCG/KG/HR Fentanyl Citrate 1,000 mcg in 100 mls @ 2 mls/hr 11/04/17 13:49 11/05/17 23: 04 Fentanyl Citrate/Sodium Chloride 1 Mg/100 Ml IV 60 mcg/hr .Q24H PRN 6 mls/hr TITRATE PER MD ORDER Administration Protocol 20 MCG/HR Propofol 1,000 mg in 100 mls @ 1.633 mls/hr 11/05/17 09:18 11/06/17 04:13 Diprivan IV 60 mcg/kg/min .Q24H PRN 19.595 mls/hr TITRATE PER MD ORDER Administration Protocol 5 MCG/KG/MIN Potassium Chloride 20 meq in 100 mls @ 50 mls/hr 11/06/17 13:36 Potassium Chloride 20 Meq/100 Ml IVPB 11/06/17 15:35 ONCE ONE Lactic Acid 1 gm 11/04/17 22:00 11/06/17 10:08 Lac-Hydrin 12% Lotion (225 G) EXT 1 applic Q12 SOLEDAD Administration Losartan Potassium 50 mg 11/06/17 10:34 Cozaar NG DAILY SOLEDAD Methylprednisolone 40 mg 11/03/17 10:00 11/06/17 09:35 Solu-Medrol IVP 40 mg Q12 SOLEDAD Administration Nicotine 1 patch 11/04/17 10:00 11/06/17 09:36 Nicoderm Cq TD 1 patch DAILY SOLEDAD Administration Pantoprazole Sodium 40 mg 11/03/17 10:00 11/06/17 09:36 Protonix Inj IVP 40 mg DAILY SOLEDAD Administration - Patient Studies Lab Studies: Lab Studies 11/06/17 11/06/17 11/06/17 Range/Units 07:00 05:30 05:30 WBC 8.8 D (4.5-11.0) 10^3/ul RBC 3.79 (3.5-6.1) 10^6/uL Hgb 11.2 L (14.0-18.0) g/dL Hct 33.5 L (42.0-52.0) % MCV 88.4 (80.0-105.0) fl MCH 29.6 (25.0-35.0) pg MCHC 33.4 (31.0-37.0) g/dl RDW 13.1 (11.5-14.5) % Plt Count 280 (120.0-450.0) 10^3/uL MPV 10.1 (7.0-11.0) fl Gran % 85.4 H (50.0-68.0) % Lymph % (Auto) 6.9 L (22.0-35.0) % Moore % (Auto) 7.7 H (1.0-6.0) % Eos % (Auto) 0.0 L (1.5-5.0) % Baso % (Auto) 0.0 (0.0-3.0) % Gran # 7.49 H (1.4-6.5) Lymph # (Auto) 0.6 L (1.2-3.4) Moore # (Auto) 0.7 H (0.1-0.6) Eos # (Auto) 0.0 (0.0-0.7) Baso # (Auto) 0.00 (0.0-2.0) K/mm3 pCO2 40 (35-45) mm/Hg pO2 85.0 (80-100) mm/Hg HCO3 29.8 H (21-28) mmol/L ABG pH 7.48 H (7.35-7.45) ABG Total CO2 31.0 H (22-28) mmol.L ABG O2 Saturation 98.6 H (95-98) % ABG O2 Content 17.9 (15-23) ML/dl ABG Base Excess 5.8 H (-2.0-3.0) mmol/L ABG Hemoglobin 13.2 (11.7-17.4) g/dL ABG Carboxyhemoglobin 1.3 (0.5-1.5) % POC ABG HHb (Measured) 1.4 (0-5) % ABG Methemoglobin 1.3 (0.0-3.0) % ABG O2 Capacity 18.2 (16-24) mL/dl Hgb O2 Saturation 96.0 (95.0-98.0) % FiO2 40.0 % Sodium 139 (132-148) mmol/L Potassium 3.4 L (3.6-5.0) mmol/L Chloride 101 (98-107) mmol/L Carbon Dioxide 29 (21-33) mmol/L Anion Gap 13 (10-20) BUN 13 (7-21) mg/dL Creatinine 0.6 L (0.8-1.5) mg/dl Est GFR ( Amer) > 60 Est GFR (Non-Af Amer) > 60 Random Glucose 92 (70-110) mg/dL Calcium 9.0 (8.4-10.5) mg/dL Phosphorus 4.5 (2.5-4.5) mg/dL Magnesium 2.0 (1.7-2.2) mg/dL Total Bilirubin 0.4 (0.2-1.3) mg/dL AST 21 (17-59) U/L ALT 38 (7-56) U/L Alkaline Phosphatase 65 (38-126) U/L Total Protein 5.5 L (5.8-8.3) g/dL Albumin 2.9 L (3.0-4.8) g/dL Globulin 2.7 gm/dL Albumin/Globulin Ratio 1.1 (1.1-1.8) Mycoplasma pneumon IgG (<=0.90) Mycoplasma pneumon IgM (<770) U/mL 11/03/17 Range/Units 01:03 WBC (4.5-11.0) 10^3/ul RBC (3.5-6.1) 10^6/uL Hgb (14.0-18.0) g/dL Hct (42.0-52.0) % MCV (80.0-105.0) fl MCH (25.0-35.0) pg MCHC (31.0-37.0) g/dl RDW (11.5-14.5) % Plt Count (120.0-450.0) 10^3/uL MPV (7.0-11.0) fl Gran % (50.0-68.0) % Lymph % (Auto) (22.0-35.0) % Moore % (Auto) (1.0-6.0) % Eos % (Auto) (1.5-5.0) % Baso % (Auto) (0.0-3.0) % Gran # (1.4-6.5) Lymph # (Auto) (1.2-3.4) Moore # (Auto) (0.1-0.6) Eos # (Auto) (0.0-0.7) Baso # (Auto) (0.0-2.0) K/mm3 pCO2 (35-45) mm/Hg pO2 (80-100) mm/Hg HCO3 (21-28) mmol/L ABG pH (7.35-7.45) ABG Total CO2 (22-28) mmol.L ABG O2 Saturation (95-98) % ABG O2 Content (15-23) ML/dl ABG Base Excess (-2.0-3.0) mmol/L ABG Hemoglobin (11.7-17.4) g/dL ABG Carboxyhemoglobin (0.5-1.5) % POC ABG HHb (Measured) (0-5) % ABG Methemoglobin (0.0-3.0) % ABG O2 Capacity (16-24) mL/dl Hgb O2 Saturation (95.0-98.0) % FiO2 % Sodium (132-148) mmol/L Potassium (3.6-5.0) mmol/L Chloride (98-107) mmol/L Carbon Dioxide (21-33) mmol/L Anion Gap (10-20) BUN (7-21) mg/dL Creatinine (0.8-1.5) mg/dl Est GFR ( Amer) Est GFR (Non-Af Amer) Random Glucose (70-110) mg/dL Calcium (8.4-10.5) mg/dL Phosphorus (2.5-4.5) mg/dL Magnesium (1.7-2.2) mg/dL Total Bilirubin (0.2-1.3) mg/dL AST (17-59) U/L ALT (7-56) U/L Alkaline Phosphatase (38-126) U/L Total Protein (5.8-8.3) g/dL Albumin (3.0-4.8) g/dL Globulin gm/dL Albumin/Globulin Ratio (1.1-1.8) Mycoplasma pneumon IgG 1.63 H (<=0.90) Mycoplasma pneumon IgM 183 (<770) U/mL Laboratory Results - last 24 hr 11/03/17 11/06/17 11/06/17 01:03 05:30 05:30 WBC 8.8 D RBC 3.79 Hgb 11.2 L Hct 33.5 L MCV 88.4 MCH 29.6 MCHC 33.4 RDW 13.1 Plt Count 280 MPV 10.1 Gran % 85.4 H Lymph % (Auto) 6.9 L Moore % (Auto) 7.7 H Eos % (Auto) 0.0 L Baso % (Auto) 0.0 Gran # 7.49 H Lymph # (Auto) 0.6 L Moore # (Auto) 0.7 H Eos # (Auto) 0.0 Baso # (Auto) 0.00 pCO2 pO2 HCO3 ABG pH ABG Total CO2 ABG O2 Saturation ABG O2 Content ABG Base Excess ABG Hemoglobin ABG Carboxyhemoglobin POC ABG HHb (Measured) ABG Methemoglobin ABG O2 Capacity Hgb O2 Saturation FiO2 Sodium 139 Potassium 3.4 L Chloride 101 Carbon Dioxide 29 Anion Gap 13 BUN 13 Creatinine 0.6 L Est GFR ( Amer) > 60 Est GFR (Non-Af Amer) > 60 Random Glucose 92 Calcium 9.0 Phosphorus 4.5 Magnesium 2.0 Total Bilirubin 0.4 AST 21 ALT 38 Alkaline Phosphatase 65 Total Protein 5.5 L Albumin 2.9 L Globulin 2.7 Albumin/Globulin Ratio 1.1 Mycoplasma pneumon IgG 1.63 H Mycoplasma pneumon IgM 183 11/06/17 07:00 WBC RBC Hgb Hct MCV MCH MCHC RDW Plt Count MPV Gran % Lymph % (Auto) Moore % (Auto) Eos % (Auto) Baso % (Auto) Gran # Lymph # (Auto) Moore # (Auto) Eos # (Auto) Baso # (Auto) pCO2 40 pO2 85.0 HCO3 29.8 H ABG pH 7.48 H ABG Total CO2 31.0 H ABG O2 Saturation 98.6 H ABG O2 Content 17.9 ABG Base Excess 5.8 H ABG Hemoglobin 13.2 ABG Carboxyhemoglobin 1.3 POC ABG HHb (Measured) 1.4 ABG Methemoglobin 1.3 ABG O2 Capacity 18.2 Hgb O2 Saturation 96.0 FiO2 40.0 Sodium Potassium Chloride Carbon Dioxide Anion Gap BUN Creatinine Est GFR ( Amer) Est GFR (Non-Af Amer) Random Glucose Calcium Phosphorus Magnesium Total Bilirubin AST ALT Alkaline Phosphatase Total Protein Albumin Globulin Albumin/Globulin Ratio Mycoplasma pneumon IgG Mycoplasma pneumon IgM Critical Care Progress Note - Nutrition Nutrition: Nutrition Category Date Time Status NPO Diet [DIET] Diets 11/02/17 Breakfast Ordered Attending/Attestation - Attestation I have personally seen and examined this patient.: Yes I have reviewed all pertinent clinical information: Yes Notes (Text): 11/06/17 14:25 trach and mass biopsy today. Also, please see Dr. Castillo's note ccm time 40 min
[2017-11-06 07:40] LABS: ALB/GLOB RATIO 1.1 (1.1-1.8); ALBUMIN 2.9 g/dL (3.0-4.8); ALT/SGPT 38 U/L (7-56); AST/SGOT 21 U/L (17-59); BLOOD UREA NITROGEN 13 mg/dL (7-21); GFR AFRICAN-AMERICAN > 60; GFR NON-AFRICAN AMERICAN > 60
--- NOTE | 2017-11-06 08:18 | RAD ---
HISTORY: Intubated/follow up COMPARISON: Portable chest 11/05/2017 1:12 a.m. FINDINGS: Endotracheal and feeding tubes are unchanged in position. LUNGS: Limited patchy atelectasis or infiltrate seen the bilateral medial bases, left greater than right. PLEURA: No significant pleural effusion identified, no pneumothorax apparent. CARDIOVASCULAR: Normal. OSSEOUS STRUCTURES: No significant abnormalities. VISUALIZED UPPER ABDOMEN: Normal. OTHER FINDINGS: None. IMPRESSION: Limited medial basilar atelectasis is favored over infiltrates bilaterally. No interval pneumothorax or pleural effusions bilaterally.
[2017-11-06] MEDS ORDERED: Potassium Chloride 40 mEq/30 ml LIQ UD PO ONE (09:16)
[2017-11-06] MEDS: MethylPREDNISolone 40 mg Vial IVP SCH ×2 (09:35→21:41)
[2017-11-06] MEDS: Azithromycin 250 MG in Sodium Chloride 0.9% 250 ML IVPB SCH (09:35)
[2017-11-06] MEDS: Ammonium Lactate 12% Lotion (225 g) EXT SCH ×2 (10:08→22:51)
[2017-11-06] MEDS ORDERED: Lidocaine 1% w Epi 1:100,000 Inj ONE (12:45)
[2017-11-06] MEDS ORDERED: Rocuronium 10 mg/ml (5 ml) ONE (13:09)
[2017-11-06] MEDS ORDERED: Midazolam 2 MG/2 ML VIAL ONE (13:10)
[2017-11-06] MEDS ORDERED: EPINEPHrine 1:1000 Nasal Sol(30mL) ONE (13:32)
[2017-11-06] MEDS ORDERED: Propofol 10 mg/ml Inj (20 ML) ONE (13:42)
[2017-11-06] MEDS ORDERED: Phenylephrine 10 mg/ml Inj ONE (13:47)
--- NOTE | 2017-11-06 13:58 | CP.PCM.PN ---
<Deidra Fox - Last Filed: 11/06/17 13:52> Subjective - Date & Time of Evaluation Date of Evaluation: 11/06/17 Time of Evaluation: 13:52 - Subjective Subjective: Deidra Fox, PGY1, Medicine Progress Note for Dr Hinojosa: Patient seen and examined at bedside. No acute events overnight. Pt remains awake, alert, following commands, states that he is hungry. Remains intubated, sedated on propofol and fentanyl. Pt scheduled for trach and laryngeal mass biopsy this afternoon. Objective - Vital Signs/Intake and Output Vital Signs (last 24 hours): Temp Pulse Resp BP Pulse Ox 97.5 F L 92 H 16 196/107 H 100 11/06/17 04:00 11/06/17 12:05 11/06/17 07:36 11/06/17 12:05 11/06/17 10:01 Intake and Output: 11/06/17 11/06/17 06:59 18:59 Intake Total 632 Output Total 700 Balance -68 - Medications Medications: Current Medications Albuterol Sulfate (Albuterol 0.083% Inhal Snow (2.5 Mg/3 Ml) Ud) 2.5 mg IH Q2H PRN PRN Reason: Shortness of Breath Albuterol Sulfate (Albuterol 0.083% Inhal Snow (2.5 Mg/3 Ml) Ud) 2.5 mg INH [id number] [facility] Last Admin: 11/06/17 13:40 Dose: Not Given Clonidine HCl (Catapres) 0.1 mg NG BID [facility] Last Admin: 11/06/17 12:05 Dose: 0.1 mg Heparin Sodium (Porcine) (Heparin) 5,000 units SC Q12 [facility] PRN Reason: Protocol Last Admin: 11/06/17 09:38 Dose: Not Given Hydralazine HCl (Apresoline) 10 mg IVP Q6 PRN PRN Reason: Systolic Blood Pressure >180 Last Admin: 11/06/17 12:04 Dose: 10 mg Azithromycin 250 mg/ Sodium (Chloride) 250 mls @ 167 mls/hr IVPB DAILY [facility] PRN Reason: Protocol Last Admin: 11/06/17 09:35 Dose: 167 mls/hr Ceftriaxone Sodium (Rocephin 1 Gram Ivpb) 1 gm in 100 mls @ 100 mls/hr IVPB DAILY@2200 [facility] PRN Reason: Protocol Last Admin: 11/05/17 21:24 Dose: 100 mls/hr Dexmedetomidine HCl (Precedex 4 Mcg/Ml (100 Ml)) 400 mcg in 100 mls @ 2.345 mls /hr IV .Q24H PRN; Protocol; 0.2 MCG/KG/HR PRN Reason: Agitation Last Titration: 11/05/17 13:00 Dose: 0 mcg/kg/hr, 0 mls/hr Fentanyl Citrate (Fentanyl Citrate/Sodium Chloride 1 Mg/100 Ml) 1,000 mcg in 100 mls @ 2 mls/hr IV .Q24H PRN; Protocol; 20 MCG/HR PRN Reason: TITRATE PER MD ORDER Last Admin: 11/05/17 23:04 Dose: 60 mcg/hr, 6 mls/hr Propofol (Diprivan) 1,000 mg in 100 mls @ 1.633 mls/hr IV .Q24H PRN; Protocol; 5 MCG/KG/MIN PRN Reason: TITRATE PER MD ORDER Last Admin: 11/06/17 04:13 Dose: 60 mcg/kg/min, 19.595 mls/hr Potassium Chloride (Potassium Chloride 20 Meq/100 Ml) 20 meq in 100 mls @ 50 mls/hr IVPB ONCE ONE Stop: 11/06/17 15:35 Lactic Acid (Lac-Hydrin 12% Lotion (225 G)) 1 gm EXT Q12 [facility] Last Admin: 11/06/17 10:08 Dose: 1 applic Losartan Potassium (Cozaar) 50 mg NG DAILY [facility] Methylprednisolone (Solu-Medrol) 40 mg IVP Q12 [facility] Last Admin: 11/06/17 09:35 Dose: 40 mg Nicotine (Nicoderm Cq) 1 patch TD DAILY [facility] Last Admin: 11/06/17 09:36 Dose: 1 patch Pantoprazole Sodium (Protonix Inj) 40 mg IVP DAILY [facility] Last Admin: 11/06/17 09:36 Dose: 40 mg - Labs Labs: 11/06/17 05:30 11/06/17 05:30 PT 14.2 SECONDS (9.4-12.5) H 11/02/17 19:35 INR 1.24 (0.93-1.08) H 11/02/17 19:35 APTT 24.6 Seconds (25.1-36.5) L 11/05/17 07:00 - Additional Findings Additional findings: - Constitutional Appears: Non-toxic, No Acute Distress - Head Exam Head Exam: ATRAUMATIC, NORMOCEPHALIC - Eye Exam Eye Exam: EOMI, PERRL. absent: Conjunctival injection, Nystagmus, Scleral icterus Pupil Exam: PERRL. absent: Fixed, Irregular, Miosis, Unequal - ENT Exam ENT Exam: Mucous Membranes Moist - Neck Exam Neck Exam: Full ROM - Respiratory Exam Respiratory Exam: Clear to Ausculation Bilateral, NORMAL BREATHING PATTERN. absent: Accessory Muscle Use, Rales, Rhonchi, Wheezes, Respiratory Distress Additional comments: intubated, prvc settings - Cardiovascular Exam Cardiovascular Exam: RRR, +S1, +S2. absent: Murmur - GI/Abdominal Exam GI & Abdominal Exam: Soft, Normal Bowel Sounds. absent: Distended, Rigid, Tenderness, Mass, Organomegaly, Rebound - Extremities Exam Extremities Exam: Full ROM, Normal Inspection. absent: Calf Tenderness, Pedal Edema - Back Exam Back Exam: NORMAL INSPECTION - Neurological Exam Neurological Exam: Alert, Awake, Oriented x3 - Psychiatric Exam Psychiatric exam: Normal Affect, Normal Mood - Skin Skin Exam: Dry, Normal Color, Warm Assessment and Plan - Assessment and Plan (Free Text) Assessment: 52 yo male with PMH asthma, COPD?, tobacco abuse, possible alcohol abuse admitted for hypercapneic respiratory failure (2/2 likely laryngeal mass), hyponatremia, leukocytosis, indeterminate trops. 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 - Echo EF 49%. LV systolic function mildly impaired. Mild TR/MR. - ENT consult. appreciate recs. - Intubated on prvc - Solumedrol 40 q 12 - Duonebs filomena and prn - hx of asthma and COPD - HOB elevated, aspiration precaution - IV antibiotics azithro and rocephine Hyponatremia: likely hypovolemic 2/2 dehydration vs vomiting/diarrhea vs beer potamania - resolved - Jannette <5 - Nephro consulted. appreciate recs. HTN: - Started Cozaar 25 mg PO daily. - IV Hydralazine q6 prn AMS: 2/2 CO2 narcosis - Head CT negative - UDS, ETOH levels neg - Neuro checks - Cont to monitor Anemia, mild: - likely mixed: iron deficiency and ACD - Fe low, tibc low, percent sat low, normal ferritin - Started Venofer 200 mg IV q 48h for 5 days, as per nephro. - Cont to monitor Indeterminate trops: likely demand ischemia - 0.03->0.05->0.04 - Cardio consult. appreciate recs. - Echo showed EF 49%. left ventricle systolic function mildly impaired. Mild mitral regurg. mild TR. Alcohol withdrawal: - on propofol/precedex Tobacco abuse: - Nicotine patch GI ppx: Protonix DVT ppx: Heparin SC Discussed with Dr Hinojosa. <Casey Hinojosa - Last Filed: 11/06/17 15:12> Objective - Vital Signs/Intake and Output Vital Signs (last 24 hours): Temp Pulse Resp BP Pulse Ox 97.5 F L 92 H 16 196/107 H 100 11/06/17 04:00 11/06/17 12:05 11/06/17 07:36 11/06/17 12:05 11/06/17 10:01 Intake and Output: 11/06/17 11/06/17 06:59 18:59 Intake Total 632 Output Total 700 Balance -68 - Medications Medications: Current Medications Albuterol Sulfate (Albuterol 0.083% Inhal Snow (2.5 Mg/3 Ml) Ud) 2.5 mg IH Q2H PRN PRN Reason: Shortness of Breath Albuterol Sulfate (Albuterol 0.083% Inhal Snow (2.5 Mg/3 Ml) Ud) 2.5 mg INH [id number] [facility] Last Admin: 11/06/17 13:40 Dose: Not Given Clonidine HCl (Catapres) 0.1 mg NG BID [facility] Last Admin: 11/06/17 12:05 Dose: 0.1 mg Heparin Sodium (Porcine) (Heparin) 5,000 units SC Q12 [facility] PRN Reason: Protocol Last Admin: 11/06/17 09:38 Dose: Not Given Hydralazine HCl (Apresoline) 10 mg IVP Q6 PRN PRN Reason: Systolic Blood Pressure >180 Last Admin: 11/06/17 12:04 Dose: 10 mg Azithromycin 250 mg/ Sodium (Chloride) 250 mls @ 167 mls/hr IVPB DAILY [facility] PRN Reason: Protocol Last Admin: 11/06/17 09:35 Dose: 167 mls/hr Ceftriaxone Sodium (Rocephin 1 Gram Ivpb) 1 gm in 100 mls @ 100 mls/hr IVPB DAILY@2200 [facility] PRN Reason: Protocol Last Admin: 11/05/17 21:24 Dose: 100 mls/hr Dexmedetomidine HCl (Precedex 4 Mcg/Ml (100 Ml)) 400 mcg in 100 mls @ 2.345 mls /hr IV .Q24H PRN; Protocol; 0.2 MCG/KG/HR PRN Reason: Agitation Last Titration: 11/05/17 13:00 Dose: 0 mcg/kg/hr, 0 mls/hr Fentanyl Citrate (Fentanyl Citrate/Sodium Chloride 1 Mg/100 Ml) 1,000 mcg in 100 mls @ 2 mls/hr IV .Q24H PRN; Protocol; 20 MCG/HR PRN Reason: TITRATE PER MD ORDER Last Admin: 11/05/17 23:04 Dose: 60 mcg/hr, 6 mls/hr Propofol (Diprivan) 1,000 mg in 100 mls @ 1.633 mls/hr IV .Q24H PRN; Protocol; 5 MCG/KG/MIN PRN Reason: TITRATE PER MD ORDER Last Admin: 11/06/17 04:13 Dose: 60 mcg/kg/min, 19.595 mls/hr Potassium Chloride (Potassium Chloride 20 Meq/100 Ml) 20 meq in 100 mls @ 50 mls/hr IVPB ONCE ONE Stop: 11/06/17 15:35 Lactic Acid (Lac-Hydrin 12% Lotion (225 G)) 1 gm EXT Q12 [facility] Last Admin: 11/06/17 10:08 Dose: 1 applic Losartan Potassium (Cozaar) 50 mg NG DAILY [facility] Methylprednisolone (Solu-Medrol) 40 mg IVP Q12 [facility] Last Admin: 11/06/17 09:35 Dose: 40 mg Nicotine (Nicoderm Cq) 1 patch TD DAILY [facility] Last Admin: 11/06/17 09:36 Dose: 1 patch Pantoprazole Sodium (Protonix Inj) 40 mg IVP DAILY [facility] Last Admin: 11/06/17 09:36 Dose: 40 mg - Labs Labs: 11/06/17 05:30 11/06/17 05:30 PT 14.2 SECONDS (9.4-12.5) H 11/02/17 19:35 INR 1.24 (0.93-1.08) H 11/02/17 19:35 APTT 24.6 Seconds (25.1-36.5) L 11/05/17 07:00 Attending/Attestation - Attestation I have personally seen and examined this patient.: Yes I have fully participated in the care of the patient.: Yes I have reviewed all pertinent clinical information, including history, physical exam and plan: Yes Notes (Text): 11/06/17 15:10 52 year old male with past medical history of COPD and alcohol abuse who presented with hypercapnic respiratory failure s/p intubation. He is on albuterol, antibiotics and iv steroids. Repeat CT neck was reviewed as above. He is being following by retention manager and ENT and plan is for possibly trach and biopsy today. Hyponatremia has improved since admission. Nephrology is following. Cardiology is following for indeterminate troponins. Echocardiogram was reviewed. Patient is on losartan and hydralazine prn for hypertension. Will replete and repeat lytes. Casey Hinojosa MD Hospitalist.
[2017-11-06] MEDS ORDERED: ePHEDrine 50 mg/ml Inj ONE (13:59)
[2017-11-06] MEDS ORDERED: Desflurane Inhalation Anesthetic Liq (240 ml) ONE (14:45)
--- NOTE | 2017-11-06 15:07 | PN ---
DATE: SUBJECTIVE: The patient is currently on a ventilator. He is cooperative and communicating. PHYSICAL EXAMINATION: VITAL SIGNS: Blood pressure , heart rate 91, temperature 97.5, and respirations 18. HEENT: Normocephalic. CHEST: Minimal rhonchi. HEART: S1 and S2, regular. EXTREMITIES: No edema. LABORATORY DATA: Hemoglobin and hematocrit 11.1 and 33.5, white count and platelet count are within normal limits. Today's SMA-7 is within normal limits except for potassium 3.4. Creatinine 0.6. ASSESSMENT: 1. Respiratory failure. 2. Consider upper airway obstruction, questionable laryngeal mass. 3. Chronic obstructive lung disease. 4. Mild depressed ejection fraction. 5. Uncontrolled hypertension. 6. Hypokalemia. RECOMMENDATIONS: The patient continue taking Solu-Medrol, administer hydralazine 10 mg IV piggyback as p.r.n. dose, increased Cozaar to 50 mg daily. We will start clonidine 0.1 mg twice a day. I will administer 20 mEq of IV potassium replacement. The patient will undergo tracheostomy today. Finn Daley MD
--- NOTE | 2017-11-06 15:47 | PN ---
DATE: 11/06/2017 SUBJECTIVE: Patient is seen and examined at bedside. He is comfortable. His sedation was just stopped. He is on pressure support 5/5 with FiO2 50%. On that setting, his oxygen saturation 100%, heart rate 78, end-tidal CO2 on the monitor 45. His spontaneous respiratory rate is 9. He is following commands. He is comfortable. His rapid shallow breathing index is 10 to 30. OBJECTIVE: ENT: Head and neck atraumatic. LUNGS: Clear to auscultation bilaterally. HEART: Regular rate and rhythm. S1 and S2 normal. ABDOMEN: Soft, nontender, nondistended. MUSCULOSKELETAL: No C/C/E. NEURO: Patient moves all extremities spontaneously. SKIN: Moist. PSYCH: Patient is alert, awake and following commands. LABORATORY DATA: WBC 8.8, hemoglobin 11.2, platelet count 280. Sodium 139, potassium 3.4 (supplemented), chloride 101, carbon dioxide 29, BUN 13, creatinine 0.6, glucose 92. ABG today morning 7.48/40/85 prior to putting patient is on pressure support trial. Influenza negative. Urine for Legionella and pneumophila negative. MEDICATIONS: Albuterol p.r.n. and every 6 hours, ceftriaxone, heparin, hydralazine p.r.n., Cozaar, Solu-Medrol 40 mg IV q.12, Protonix, and azithromycin. ASSESSMENT AND PLAN: This 52-year-old gentleman who was re-intubated for hypercapnic respiratory failure. Mechanical airway obstruction (likely dynamic) due to hypopharyngeal mass most likely contributing to a large degree along with presumed advanced COPD. 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 The patient is going for tracheotomy today and the mass will be biopsied. Meanwhile, patient tolerated pressure support trial well. During tracheotomy, the patient will be put back on PRVC (discussed with respiratory therapist). After the tracheotomy, once sedation and analgesia effects wear of, patient will be put back on PS. I would continue with bronchodilators, steroids, antibiotics. Conservative fluid and oxygen management. Daily weaning trials and sedation vacation. The patient is n.p.o. for the procedure. He may need percutaneous endoscopic gastrostomy tube as well after tracheotomy, depending on the extent of hypopharyngeal mass. We will maintain blood glucose within 140-180 range according to NICE-SUGAR trial. We will maintain mean arterial pressure more than 65 and euvolemia for extra nephroprotective effect. We will continue with deep venous thrombosis and gastrointestinal prophylaxis. We will continue with head of bed elevated more than 35 degrees, oral hygiene. ccm time 40 min Eliezer Castillo MD MTDD
[2017-11-06] MEDS: Dextrose 5%/0.45% NS 1,000 ML IV SCH (17:19)
--- NOTE | 2017-11-06 17:32 | PN ---
DATE: 11/06/2017 SUBJECTIVE: Patient is seen in the ICU. He is on mechanical ventilation. He is awake, he is alert. He is following commands. Family members are at bedside. He is scheduled for a tracheostomy. He is also scheduled for biopsy of his neck mass. He denies any pain. He denies any shortness of breath. He denies any chest tightness. He denies any lower extremity edema. PHYSICAL EXAMINATION: GENERAL: Elder than stated age appearing male, lying in bed in the ICU on mechanical ventilation. VITAL SIGNS: Blood pressure 196/107, heart rate 92, respiratory rate 16, and temperature 97.5. HEENT: Normocephalic, atraumatic, positive pallor. NECK: Supple, no JVD. LUNGS: Bilateral equal air entry, bilateral equal expansion, no rales. CARDIAC: S1, S2, regular rate and rhythm, no murmur, no rub. ABDOMEN: Soft, nondistended, nontender, bowel sounds present. EXTREMITIES: No lower extremity edema. INTAKE AND OUTPUT: 1535/1700 LABORATORY DATA: WBC 8.8, hemoglobin 11, hematocrit 34, and platelets 280. Sodium 139, potassium 3.4, chloride 101, CO2 of 29. BUN 13, creatinine 0.6. Glucose 92. Calcium 9.0, phosphorus 4.5, magnesium 2.0, albumin 2.9. Cultures negative. Chest x-ray: Limited medial bibasilar atelectasis, no pneumothorax or pleural effusions. Soft tissue neck CT: Large supraglottic mass involving the left aryepiglottic fold, para-epiglottic fat, metastatic enlarged left lymph nodes. CURRENT MEDICATIONS: DuoNeb, , Apresoline 10 mg q.6 p.r.n., Zithromax, Catapres 0.1, losartan 50, Diprivan, fentanyl, heparin, Precedex, Protonix, Rocephin, and Solu-Medrol. ASSESSMENT: 1. Resolved hyponatremia. 2. Hypokalemia. 3. Chronic obstructive pulmonary disease. 4. Left-sided supraglottic mass, causing stridor? 5. History of anemia. PLAN: 1. Replace potassium. 2. Continue management of hypertension. 3. We will follow up after his trach. Natasha Duncan MD [facility] # [id number]
[2017-11-06] MEDS: cefTRIAXone 1 gm 1 GM/100 ML BAG IVPB SCH (21:41)
[2017-11-06 23:03] LABS: ARTERIAL BLOOD GAS O2 CAPACITY 17.8 mL/dl (16-24); ARTERIAL BLOOD GAS O2 CONTENT 17.3 ML/dl (15-23); ARTERIAL BLOOD GAS PCO2 44 mm/Hg (35-45); ARTERIAL BLOOD GAS PH 7.47 (7.35-7.45); ARTERIAL BLOOD GAS TCO2 33.4 mmol.L (22-28)
[2017-11-07] MEDS: Albuterol 0.083% Inhal Sol (2.5 mg/3 mL) UD INH SCH ×4 (02:32→20:06)
[2017-11-07 04:45] LABS: ARTERIAL BLOOD GAS HCO3 35.1 mmol/L (21-28); ARTERIAL BLOOD GAS HEMOGLOBIN 11.9 g/dL (11.7-17.4); ARTERIAL BLOOD GAS O2 CAPACITY 16.4 mL/dl (16-24); ARTERIAL BLOOD GAS O2 CONTENT 15.9 ML/dl (15-23); ARTERIAL BLOOD GAS O2 SAT 97.2 % (95-98); ARTERIAL BLOOD GAS PCO2 41 mm/Hg (35-45); ARTERIAL BLOOD GAS PH 7.54 (7.35-7.45); ARTERIAL BLOOD GAS TCO2 36.4 mmol.L (22-28)
[2017-11-07 07:19] LABS: BASO # 0.01 K/mm3 (0.0-2.0); BASO % 0.1 % (0.0-3.0); GRAN # 10.49 (1.4-6.5); GRAN % 84.1 % (50.0-68.0); HEMOGLOBIN 12.6 g/dL (14.0-18.0); LYMPH % 8.2 % (22.0-35.0); MEAN CELL VOLUME 89.1 fl (80.0-105.0); MEAN CORPUSCULAR HEMOGLOBIN 29.3 pg (25.0-35.0); MEAN CORPUSCULAR HGB CONC 32.9 g/dl (31.0-37.0); MEAN PLATELET VOLUME 9.8 fl (7.0-11.0); MONO % 7.6 % (1.0-6.0); RBC 4.3 10^6/uL (3.5-6.1); RED CELL DISTRIBUTION WIDTH 13.3 % (11.5-14.5); WHITE BLOOD COUNT 12.5 10^3/ul (4.5-11.0)
[2017-11-07 07:48] LABS: ALB/GLOB RATIO 1.2 (1.1-1.8); ALBUMIN 3.3 g/dL (3.0-4.8); ALT/SGPT 40 U/L (7-56); AST/SGOT 31 U/L (17-59); BLOOD UREA NITROGEN 11 mg/dL (7-21); CALCIUM 9.2 mg/dL (8.4-10.5); GFR AFRICAN-AMERICAN > 60; GFR NON-AFRICAN AMERICAN > 60; MAGNESIUM 1.9 mg/dL (1.7-2.2)
--- NOTE | 2017-11-07 08:17 | OP ---
PROCEDURE DATE: 11/06/2017 PREOPERATIVE DIAGNOSIS: Laryngeal mass and respiratory failure. POSTOPERATIVE DIAGNOSIS: Laryngeal mass and respiratory failure. PROCEDURE: Tracheostomy and direct laryngoscopy with biopsy. SURGEON: Raoul Okeefe DO MAINTENANCE OPERATOR: Dr. Vera. ANESTHESIA: General endotracheal. FLUIDS: Crystalloid. ESTIMATED BLOOD LOSS: 5 mL. 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 COMPLICATIONS: None. CONDITION: Stable, back to the ICU. INDICATIONS FOR PROCEDURE: This is a 52-year-old male who was admitted to [facility] in the ICU requiring intubation and mechanical ventilation. He was found to have a large supraglottic mass. He was attempted to be extubated, but due to the mass, he had to be re-intubated again. For this reason, he comes to the operating room today for tracheostomy and direct laryngoscopy with biopsy of the mass. Preoperatively, a CAT scan of the neck was performed, in which it appeared that there was a large mass, likely tumor, in the left supraglottis. Preoperatively, risks and benefits of the procedure were discussed with the patient and his family. Risks include but are not limited to bleeding, scarring, infection, loss of airway, damage to the lungs, damage to the airway, potential need for permanent tracheostomy and even . They understood these risks and wished to proceed. PROCEDURE IN DETAIL: On 11/06/2017, the patient was brought into the operating room and placed supine on the operating room table. General endotracheal anesthesia was induced. A time-out was called confirming the patient and procedure. The neck incision was marked two fingerbreadths above the sternal notch. A 1% lidocaine with 1:100,000 epinephrine was injected along the incision. Then the patient was prepped and draped in sterile fashion. Then a 15-blade was used to make an incision through the skin and the subcutaneous tissue. Blunt dissection was carried into the neck until the strap muscles were identified. The midline raphae was identified and then strap muscles were dissected laterally off of the trachea until the thyroid came into view. Additional tissue was dissected off of the trachea until it was visualized. The thyroid was just superior to it. [employer] [place]'s were used to retract the straps laterally. A Kittner was used to clear off the remaining soft tissue overlying the trachea until tracheal rings were clearly seen. A planned incision was made between the second and third tracheal rings. An 11-blade was used to make the horizontal incision between the second and third tracheal rings horizontally and then inferiorly to create a small tracheal flap. A 2-0 silk suture was used to secure this inferior tracheal flap to the anterior chest wall. Afterwards a Trousseau dilator was used to dilate the opening. Afterwards, a previously #6 cuffed Shiley was passed with an obturator easily into the trachea. The obturator was then removed. A soft suction catheter was then passed to confirm placement within the trachea. The catheter was then removed and an inner cannula was replaced. Tracheostomy apparatus was then hooked up to the to the anesthesia circuit and end-tidal CO2 was confirmed. The tracheostomy apparatus was then secured with four-cornered 2-0 silk sutures and a soft Karl collar. At this point, the head of the bed was turned 90 degrees and attention was turned to do the direct laryngoscopy. An upper dentition mouthguard was placed on the upper teeth to protect the dentition. Afterwards, a Dedo laryngoscope was used to perform direct laryngoscopy. Afterwards the oral cavity subsites and oropharyngeal subsites were palpated, and the oral cavity, anterior and posterior tongue were noted to be normal. Floor of mouth was normal. Buccal mucosa was normal. Alveolar ridge was normal. Lips were normal. Retromolar trigone was normal. Tonsils were normal. Uvula was normal. Soft and hard palate were both normal. The left base of the tongue had some thickened tissue. Afterwards, these subsites were visualized with the laryngoscope and a light source, and all appear to be normal. The laryngoscope was then advanced towards the glottis. The epiglottis came into view. On the . Raoul Okeefe DO
--- NOTE | 2017-11-07 08:38 | CP.CCUPN ---
<Joaquin Baca - Last Filed: 11/07/17 14:10> CCU Subjective - Physician Review Subjective (Free Text): Joaquin Baca PGY1 ICU Note for Dr. Castillo Patient was seen and examined bedside. He is comfortable on trach collar and there were no overnight events reported. Family is bedside and patient has good social support. ROS was limited due to inability to vocalize words. CCU Objective - Vital Signs / Intake & Output Vital Signs (Last 4 hours): Vital Signs Pulse Resp BP Pulse Ox 11/07/17 06:50 101 H 89 L 11/07/17 06:40 104 H 26 H 92 L 11/07/17 06:30 90 66 H 96 11/07/17 06:20 85 95 11/07/17 06:17 103 H 13 11/07/17 06:10 80 24 96 11/07/17 06:00 102 H 21 177/90 H 98 11/07/17 05:50 90 21 96 11/07/17 05:40 81 29 H 96 11/07/17 05:30 71 34 H 167/87 H 96 11/07/17 05:20 77 17 96 11/07/17 05:10 79 25 H 94 L 11/07/17 05:00 79 35 H 166/91 H 96 11/07/17 04:50 85 16 97 11/07/17 04:40 81 16 94 L Intake and Output (Last 8hrs): Intake & Output 11/06/17 11/07/17 11/07/17 22:59 06:59 14:59 Intake Total 225 1013 Output Total 850 2300 Balance -625 -1287 Weight 100 lb Intake: IV 225 1013 Left Antecubital 820 Left Forearm 100 Propofol 5 5 fentanyl 68 precedex 20 20 Oral 0 0 Output: Urine 850 2300 2-way Urethral 850 2300 Other: # Bowel Movements 0 0 - Physical Exam Physical Exam Limitations: Positive for: Other (s/p trach) Head: Positive for: Atraumatic, Normocephalic Pupils: Positive for: PERRL Extroacular Muscles: Positive for: EOMI Conjunctiva: Positive for: Normal Ears: Positive for: Normal Mouth: Positive for: Moist Mucous Membranes Pharnyx: Positive for: Normal Nose (External): Positive for: Atraumatic Nose (Internal): Positive for: Normal Inspection Neck: Positive for: Normal Range of Motion Respiratory/Chest: Positive for: Clear to Auscultation, Good Air Exchange. Negative for: Respiratory Distress, Accessory Muscle Use, Wheezes, Decreased Breath Sounds, Rales, Retracting, Rhonchi, Tachypneic, Tender to Palpation Cardiovascular: Positive for: Regular Rate and Rhythm, Normal S1, S2 Abdomen: Negative for: Tenderness, Distention, Normal Bowel Sounds, Peritoneal Signs, Rebound, Guarding, McBurney's Point Tender, Rovsing's Sign Present, Hernias, Feeding Tubes, Ostomy Tubes, Mass/Organomegaly, Scars, Other Back: Positive for: Normal Inspection Upper Extremity: Positive for: Normal Inspection Lower Extremity: Positive for: Normal Inspection Neurological: Positive for: GCS=15, Motor Func Grossly Intact. Negative for: Speech Normal Skin: Positive for: Warm, Normal Color Psychiatric: Positive for: Alert - Medications Active Medications: Active Medications Generic Name Dose Route Start Last Admin Trade Name Freq PRN Reason Stop Dose Admin Albuterol Sulfate 2.5 mg 11/02/17 21:44 Albuterol 0.083% Inhal Snow (2.5 Mg/3 Ml) Ud IH Q2H PRN Shortness of Breath Albuterol Sulfate 2.5 mg 11/03/17 14:00 11/07/17 07:55 Albuterol 0.083% Inhal Snow (2.5 Mg/3 Ml) Ud INH 2.5 mg [id number] SOLEDAD Administration Clonidine HCl 0.1 mg 11/06/17 10:45 11/06/17 12:05 Catapres NG 0.1 mg BID SOLEDAD Administration Heparin Sodium (Porcine) 5,000 units 11/03/17 10:00 11/06/17 09:38 Heparin SC Not Given Q12 SOLEDAD Protocol Hydralazine HCl 10 mg 11/05/17 17:16 11/06/17 12:04 Apresoline IVP 10 mg Q6 PRN Administration Systolic Blood Pressure >180 Azithromycin 250 mg/ Sodium 250 mls @ 167 mls/hr 11/03/17 10:00 11/06/17 09: 35 Chloride IVPB 167 mls/hr DAILY SOLEDAD Administration Protocol Ceftriaxone Sodium 1 gm in 100 mls @ 100 mls/hr 11/03/17 10:57 11/06/17 21:41 Rocephin 1 Gram Ivpb IVPB 100 mls/hr DAILY@2200 SOLEDAD Administration Protocol Dexmedetomidine HCl 400 mcg in 100 mls @ 2.345 mls/hr 11/04/17 13:49 13:00 Precedex 4 Mcg/Ml (100 Ml) IV 0 mcg/kg/hr .Q24H PRN 0 mls/hr Agitation Titration Protocol 0.2 MCG/KG/HR Fentanyl Citrate 1,000 mcg in 100 mls @ 2 mls/hr 11/04/17 13:49 11/06/17 21: 12 Fentanyl Citrate/Sodium Chloride 1 Mg/100 Ml IV Infused .Q24H PRN Titration TITRATE PER MD ORDER Protocol 20 MCG/HR Propofol 1,000 mg in 100 mls @ 1.633 mls/hr 11/05/17 09:18 11/06/17 19:00 Diprivan IV Infused .Q24H PRN Titration TITRATE PER MD ORDER Protocol 5 MCG/KG/MIN Dextrose/Sodium Chloride 1,000 mls @ 60 mls/hr 11/06/17 17:15 11/06/17 17:19 Dextrose 5%/0.45% Ns 1000 Ml IV 60 mls/hr .[id number] SOLEDAD Administration Potassium Chloride 20 meq in 100 mls @ 50 mls/hr 11/07/17 08:12 Potassium Chloride 20 Meq/100 Ml IVPB 11/07/17 10:11 ONCE ONE Lactic Acid 1 gm 11/04/17 22:00 11/06/17 22:51 Lac-Hydrin 12% Lotion (225 G) EXT 1 applic Q12 SOLEDAD Administration Lorazepam 0.5 mg 11/06/17 19:55 11/06/17 21:30 Ativan IVP 0.5 mg Q6H PRN Administration Anxiety Protocol Losartan Potassium 50 mg 11/06/17 10:34 Cozaar NG DAILY SOLEADD Methylprednisolone 40 mg 11/03/17 10:00 11/06/17 21:41 Solu-Medrol IVP 40 mg Q12 SOLEDAD Administration Nicotine 1 patch 11/04/17 10:00 11/06/17 09:36 Nicoderm Cq TD 1 patch DAILY SOLEDAD Administration Pantoprazole Sodium 40 mg 11/03/17 10:00 11/06/17 09:36 Protonix Inj IVP 40 mg DAILY SOLEDAD Administration - Patient Studies Lab Studies: Lab Studies 11/07/17 11/07/17 11/07/17 Range/Units 06:00 06:00 04:41 WBC 12.5 H D (4.5-11.0) 10^3/ul RBC 4.30 (3.5-6.1) 10^6/uL Hgb 12.6 L (14.0-18.0) g/dL Hct 38.3 L (42.0-52.0) % MCV 89.1 (80.0-105.0) fl MCH 29.3 (25.0-35.0) pg MCHC 32.9 (31.0-37.0) g/dl RDW 13.3 (11.5-14.5) % Plt Count 305 (120.0-450.0) 10^3/uL MPV 9.8 (7.0-11.0) fl Gran % 84.1 H (50.0-68.0) % Lymph % (Auto) 8.2 L (22.0-35.0) % [place] % (Auto) 7.6 H (1.0-6.0) % Eos % (Auto) 0.0 L (1.5-5.0) % Baso % (Auto) 0.1 (0.0-3.0) % Gran # 10.49 H (1.4-6.5) Lymph # (Auto) 1.0 L (1.2-3.4) [place] # (Auto) 1.0 H (0.1-0.6) Eos # (Auto) 0.0 (0.0-0.7) Baso # (Auto) 0.01 (0.0-2.0) K/mm3 pCO2 41 (35-45) mm/Hg pO2 70.0 L (80-100) mm/Hg HCO3 35.1 H (21-28) mmol/L ABG pH 7.54 H (7.35-7.45) ABG Total CO2 36.4 H (22-28) mmol.L ABG O2 Saturation 97.2 (95-98) % ABG O2 Content 15.9 (15-23) ML/dl ABG Base Excess 11.5 H (-2.0-3.0) mmol/L ABG Hemoglobin 11.9 (11.7-17.4) g/dL ABG Carboxyhemoglobin 1.8 H (0.5-1.5) % POC ABG HHb (Measured) 2.7 (0-5) % ABG Methemoglobin 0.8 (0.0-3.0) % ABG O2 Capacity 16.4 (16-24) mL/dl Hgb O2 Saturation 94.7 L (95.0-98.0) % FiO2 28.0 % Sodium 140 (132-148) mmol/L Potassium 3.4 L (3.6-5.0) mmol/L Chloride 99 (98-107) mmol/L Carbon Dioxide 34 H (21-33) mmol/L Anion Gap 10 (10-20) BUN 11 (7-21) mg/dL Creatinine 0.7 L (0.8-1.5) mg/dl Est GFR ( Amer) > 60 Est GFR (Non-Af Amer) > 60 Random Glucose 107 (70-110) mg/dL Calcium 9.2 (8.4-10.5) mg/dL Phosphorus 3.5 (2.5-4.5) mg/dL Magnesium 1.9 (1.7-2.2) mg/dL Total Bilirubin 0.6 (0.2-1.3) mg/dL AST 31 (17-59) U/L ALT 40 (7-56) U/L Alkaline Phosphatase 71 (38-126) U/L Total Protein 6.2 (5.8-8.3) g/dL Albumin 3.3 (3.0-4.8) g/dL Globulin 2.9 gm/dL Albumin/Globulin Ratio 1.2 (1.1-1.8) Mycoplasma pneumon IgG (<=0.90) Mycoplasma pneumon IgM (<770) U/mL Ur Strep pneumoniae Ag 11/06/17 11/03/17 11/03/17 Range/Units 22:45 01:03 00:30 WBC (4.5-11.0) 10^3/ul RBC (3.5-6.1) 10^6/uL Hgb (14.0-18.0) g/dL Hct (42.0-52.0) % MCV (80.0-105.0) fl MCH (25.0-35.0) pg MCHC (31.0-37.0) g/dl RDW (11.5-14.5) % Plt Count (120.0-450.0) 10^3/uL MPV (7.0-11.0) fl Gran % (50.0-68.0) % Lymph % (Auto) (22.0-35.0) % [place] % (Auto) (1.0-6.0) % Eos % (Auto) (1.5-5.0) % Baso % (Auto) (0.0-3.0) % Gran # (1.4-6.5) Lymph # (Auto) (1.2-3.4) [place] # (Auto) (0.1-0.6) Eos # (Auto) (0.0-0.7) Baso # (Auto) (0.0-2.0) K/mm3 pCO2 44 (35-45) mm/Hg pO2 70.0 L (80-100) mm/Hg HCO3 32.0 H (21-28) mmol/L ABG pH 7.47 H (7.35-7.45) ABG Total CO2 33.4 H (22-28) mmol.L ABG O2 Saturation 97.0 (95-98) % ABG O2 Content 17.3 (15-23) ML/dl ABG Base Excess 7.4 H (-2.0-3.0) mmol/L ABG Hemoglobin 13.0 (11.7-17.4) g/dL ABG Carboxyhemoglobin 1.4 (0.5-1.5) % POC ABG HHb (Measured) 2.9 (0-5) % ABG Methemoglobin 1.0 (0.0-3.0) % ABG O2 Capacity 17.8 (16-24) mL/dl Hgb O2 Saturation 94.7 L (95.0-98.0) % FiO2 28.0 % Sodium (132-148) mmol/L Potassium (3.6-5.0) mmol/L Chloride (98-107) mmol/L Carbon Dioxide (21-33) mmol/L Anion Gap (10-20) BUN (7-21) mg/dL Creatinine (0.8-1.5) mg/dl Est GFR ( Amer) Est GFR (Non-Af Amer) Random Glucose (70-110) mg/dL Calcium (8.4-10.5) mg/dL Phosphorus (2.5-4.5) mg/dL Magnesium (1.7-2.2) mg/dL Total Bilirubin (0.2-1.3) mg/dL AST (17-59) U/L ALT (7-56) U/L Alkaline Phosphatase (38-126) U/L Total Protein (5.8-8.3) g/dL Albumin (3.0-4.8) g/dL Globulin gm/dL Albumin/Globulin Ratio (1.1-1.8) Mycoplasma pneumon IgG 1.63 H (<=0.90) Mycoplasma pneumon IgM 183 (<770) U/mL Ur Strep pneumoniae Ag Not detected Laboratory Results - last 24 hr 11/03/17 11/03/17 11/06/17 00:30 01:03 22:45 WBC RBC Hgb Hct MCV MCH MCHC RDW Plt Count MPV Gran % Lymph % (Auto) [place] % (Auto) Eos % (Auto) Baso % (Auto) Gran # Lymph # (Auto) [place] # (Auto) Eos # (Auto) Baso # (Auto) pCO2 44 pO2 70.0 L HCO3 32.0 H ABG pH 7.47 H ABG Total CO2 33.4 H ABG O2 Saturation 97.0 ABG O2 Content 17.3 ABG Base Excess 7.4 H ABG Hemoglobin 13.0 ABG Carboxyhemoglobin 1.4 POC ABG HHb (Measured) 2.9 ABG Methemoglobin 1.0 ABG O2 Capacity 17.8 Hgb O2 Saturation 94.7 L FiO2 28.0 Sodium Potassium Chloride Carbon Dioxide Anion Gap BUN Creatinine Est GFR ( Amer) Est GFR (Non-Af Amer) Random Glucose Calcium Phosphorus Magnesium Total Bilirubin AST ALT Alkaline Phosphatase Total Protein Albumin Globulin Albumin/Globulin Ratio Mycoplasma pneumon IgG 1.63 H Mycoplasma pneumon IgM 183 Ur Strep pneumoniae Ag Not detected 11/07/17 11/07/17 11/07/17 04:41 06:00 06:00 WBC 12.5 H D RBC 4.30 Hgb 12.6 L Hct 38.3 L MCV 89.1 MCH 29.3 MCHC 32.9 RDW 13.3 Plt Count 305 MPV 9.8 Gran % 84.1 H Lymph % (Auto) 8.2 L [place] % (Auto) 7.6 H Eos % (Auto) 0.0 L Baso % (Auto) 0.1 Gran # 10.49 H Lymph # (Auto) 1.0 L [place] # (Auto) 1.0 H Eos # (Auto) 0.0 Baso # (Auto) 0.01 pCO2 41 pO2 70.0 L HCO3 35.1 H ABG pH 7.54 H ABG Total CO2 36.4 H ABG O2 Saturation 97.2 ABG O2 Content 15.9 ABG Base Excess 11.5 H ABG Hemoglobin 11.9 ABG Carboxyhemoglobin 1.8 H POC ABG HHb (Measured) 2.7 ABG Methemoglobin 0.8 ABG O2 Capacity 16.4 Hgb O2 Saturation 94.7 L FiO2 28.0 Sodium 140 Potassium 3.4 L Chloride 99 Carbon Dioxide 34 H Anion Gap 10 BUN 11 Creatinine 0.7 L Est GFR ( Amer) > 60 Est GFR (Non-Af Amer) > 60 Random Glucose 107 Calcium 9.2 Phosphorus 3.5 Magnesium 1.9 Total Bilirubin 0.6 AST 31 ALT 40 Alkaline Phosphatase 71 Total Protein 6.2 Albumin 3.3 Globulin 2.9 Albumin/Globulin Ratio 1.2 Mycoplasma pneumon IgG Mycoplasma pneumon IgM Ur Strep pneumoniae Ag Review of Systems - Review of Systems Systems not reviewed;Unavailable: Other (s/p tracheostomy) Critical Care Progress Note - Ventilator Checklist Head of Bed 30 Degrees: Yes - Extremities/Vascular Does the Patient have a Central Venous Catheter?: No Does the Patient need a Central Venous Catheter?: No - Prophylaxis GI Prophylaxis GI: PPI - Prophylaxis DVT Prophylaxis DVT: Heparin SQ - Nutrition Nutrition: Nutrition Category Date Time Status NPO Diet [DIET] Diets 11/02/17 Breakfast Ordered Assessment/Plan - Assessment and Plan (Free Text) Assessment: 52 y/o with PMHx significant for alcohol abuse and copd admitted with hyponatremia and hypercapneic respiratory failure for which patient required intubation. During the coarse of initial intubation patient was noted to have tracheal mass. Patient subsequently did well and was extubated. Patient then developed changes in mental status with severe CO2 retention and had to be reintubate, and again the tracheal mass was apparent and obvious during the reintubation. ENT was consulted, patient had CT soft tissue which confirmed supraglotic mass invading the surrounding areas, including mediatinal lymphadenopathes suspicious for cancer. Patient is currently tolerating trach collar and is scheduled for open gastrostomy tube placement per surgery on Saturday 11/11. Plan: Neurology: - Mental status improved - no sedation required Pulm: - Hypercapneic respiratory failure likely due to COPD exacerbation superimposed with mechanical obstruction from supraglottis mass. - s/p intubation and extubation twice - Continue with protected lung ventilation strategies - duonebs prn and standing dose - Solumedrol tapering dose - Pulm toileting, oral care, and ppi. - head of bed above 35 degrees - On abx for copd exacerbation - s/p tracheostomy POD 1, tolerating trach collar well - continue to monitor for signs of hypoxemia Cardio: - Patient is hemodynamically stable - Will monitor and maintain MAP above 65% - clonidine added for BP control - echo with lvef of 45-50% - Hydralazine prn for sbp above 160. Renal: - Hypokalemia, will replete - Will continue to monitor renal function Endo: - Will maintain euglycemia Heme: - h/h stable, no signs of overt bleeding - will continue to monitor ID: - On rocephin/ zithromax/ vanco for copd exacerbation - Mild leukocytosis likely due to solu medrol - not febrile, and no growth on cultures. procal is also low GI: - currently NPO - On ppi for Gi prophylaxis. Tobacco abuse- nicotine patch DVT prophylaxis: SCDs Dispo- open gastrostomy scheduled by surgery team for Saturday 11/11, then placement pending Patient was seen, examined and discussed with attending, Dr Jonathan Baca PGY1 Pager # [phone] <Eliezer Castillo - Last Filed: 11/08/17 15:13> CCU Objective - Vital Signs / Intake & Output Vital Signs (Last 4 hours): Vital Signs Temp 11/08/17 11:22 98.9 F Intake and Output (Last 8hrs): Intake & Output 11/08/17 11/08/17 11/08/17 06:59 14:59 22:59 Intake Total 720 Output Total 1000 Balance -280 Weight 100 lb Intake: IV 720 Right Forearm 720 Output: Urine 1000 2-way Urethral 1000 Other: # Bowel Movements 0 - Medications Active Medications: Active Medications Generic Name Dose Route Start Last Admin Trade Name Freq PRN Reason Stop Dose Admin Albuterol Sulfate 2.5 mg 11/02/17 21:44 Albuterol 0.083% Inhal Snow (2.5 Mg/3 Ml) Ud IH Q2H PRN Shortness of Breath Albuterol Sulfate 2.5 mg 11/08/17 14:00 11/08/17 13:13 Albuterol 0.083% Inhal Snow (2.5 Mg/3 Ml) Ud INH 2.5 mg [id number] SOLEDAD Administration Clonidine HCl 0.1 mg 11/06/17 10:45 11/07/17 21:10 Catapres NG Not Given BID SOLEDAD Clonidine HCl 1 patch 11/07/17 13:00 11/07/17 13:19 Catapres-Tts2 0.2 Mg/24 Hr TD 1 patch Q7D@1000 SOLEDAD Administration Heparin Sodium (Porcine) 5,000 units 11/03/17 10:00 11/06/17 09:38 Heparin SC Not Given Q12 SOLEDAD Protocol Hydralazine HCl 10 mg 11/05/17 17:16 11/06/17 12:04 Apresoline IVP 10 mg Q6 PRN Administration Systolic Blood Pressure >180 Azithromycin 250 mg/ Sodium 250 mls @ 167 mls/hr 11/03/17 10:00 11/08/17 10: 09 Chloride IVPB 167 mls/hr DAILY SOLEDAD Administration Protocol Ceftriaxone Sodium 1 gm in 100 mls @ 100 mls/hr 11/03/17 10:57 11/07/17 21:57 Rocephin 1 Gram Ivpb IVPB 100 mls/hr DAILY@2200 SOLEDAD Administration Protocol Potassium Chloride 20 meq/ 1,010 mls @ 60 mls/hr 11/08/17 09:22 11/08/17 10: 21 Dextrose/Sodium Chloride IV 60 mls/hr .[id number] SOLEDAD Administration Lactic Acid 1 gm 11/04/17 22:00 11/08/17 09:24 Lac-Hydrin 12% Lotion (225 G) EXT 1 applic Q12 SOLEDAD Administration Lorazepam 0.5 mg 11/06/17 19:55 11/07/17 22:00 Ativan IVP 0.5 mg Q6H PRN Administration Anxiety Protocol Losartan Potassium 50 mg 11/06/17 10:34 11/07/17 10:40 Cozaar NG Not Given DAILY SOLEDAD Methylprednisolone 40 mg 11/08/17 10:00 11/08/17 09:25 Solu-Medrol IVP 40 mg DAILY SOLEDAD Administration Nicotine 1 patch 11/04/17 10:00 11/08/17 09:24 Nicoderm Cq TD 1 patch DAILY SOLEDAD Administration Pantoprazole Sodium 40 mg 11/03/17 10:00 11/08/17 09:25 Protonix Inj IVP 40 mg DAILY SOLEDAD Administration - Patient Studies Lab Studies: Lab Studies 11/08/17 11/08/17 Range/Units 06:00 06:00 WBC 14.3 H (4.5-11.0) 10^3/ul RBC 4.32 (3.5-6.1) 10^6/uL Hgb 12.7 L (14.0-18.0) g/dL Hct 38.5 L (42.0-52.0) % MCV 89.1 (80.0-105.0) fl MCH 29.4 (25.0-35.0) pg MCHC 33.0 (31.0-37.0) g/dl RDW 13.2 (11.5-14.5) % Plt Count 295 (120.0-450.0) 10^3/uL MPV 9.8 (7.0-11.0) fl Gran % 81.5 H (50.0-68.0) % Lymph % (Auto) 9.6 L (22.0-35.0) % [place] % (Auto) 8.3 H (1.0-6.0) % Eos % (Auto) 0.5 L (1.5-5.0) % Baso % (Auto) 0.1 (0.0-3.0) % Gran # 11.63 H (1.4-6.5) Lymph # (Auto) 1.4 (1.2-3.4) [place] # (Auto) 1.2 H (0.1-0.6) Eos # (Auto) 0.1 (0.0-0.7) Baso # (Auto) 0.01 (0.0-2.0) K/mm3 Sodium 140 (132-148) mmol/L Potassium 3.4 L (3.6-5.0) mmol/L Chloride 100 (98-107) mmol/L Carbon Dioxide 30 (21-33) mmol/L Anion Gap 13 (10-20) BUN 14 (7-21) mg/dL Creatinine 0.7 L (0.8-1.5) mg/dl Est GFR ( Amer) > 60 Est GFR (Non-Af Amer) > 60 Random Glucose 121 H (70-110) mg/dL Calcium 9.5 (8.4-10.5) mg/dL Total Bilirubin 0.8 (0.2-1.3) mg/dL AST 27 (17-59) U/L ALT 37 (7-56) U/L Alkaline Phosphatase 72 (38-126) U/L Total Protein 6.1 (5.8-8.3) g/dL Albumin 3.2 (3.0-4.8) g/dL Globulin 2.9 gm/dL Albumin/Globulin Ratio 1.1 (1.1-1.8) Laboratory Results - last 24 hr 11/08/17 11/08/17 06:00 06:00 WBC 14.3 H RBC 4.32 Hgb 12.7 L Hct 38.5 L MCV 89.1 MCH 29.4 MCHC 33.0 RDW 13.2 Plt Count 295 MPV 9.8 Gran % 81.5 H Lymph % (Auto) 9.6 L [place] % (Auto) 8.3 H Eos % (Auto) 0.5 L Baso % (Auto) 0.1 Gran # 11.63 H Lymph # (Auto) 1.4 [place] # (Auto) 1.2 H Eos # (Auto) 0.1 Baso # (Auto) 0.01 Sodium 140 Potassium 3.4 L Chloride 100 Carbon Dioxide 30 Anion Gap 13 BUN 14 Creatinine 0.7 L Est GFR ( Amer) > 60 Est GFR (Non-Af Amer) > 60 Random Glucose 121 H Calcium 9.5 Total Bilirubin 0.8 AST 27 ALT 37 Alkaline Phosphatase 72 Total Protein 6.1 Albumin 3.2 Globulin 2.9 Albumin/Globulin Ratio 1.1 Critical Care Progress Note - Nutrition Nutrition: Nutrition Category Date Time Status NPO Diet [DIET] Diets 11/02/17 Breakfast Ordered Attending/Attestation - Attestation I have personally seen and examined this patient.: Yes I have fully participated in the care of the patient.: Yes I have reviewed all pertinent clinical information: Yes Notes (Text): 11/08/17 15:12 on trach colar overnight-->no events. Hemodyanmcially and respiratory bañuelos stable. Await bx results. Ok to to downgrade to tele. DVT/GI prophylaxis ccm time 40 min
--- NOTE | 2017-11-07 09:18 | RAD ---
HISTORY: Intubated/follow up COMPARISON: 11/06/2017. FINDINGS: There is stable position of the tracheostomy tube. LUNGS: The right lung is clear. There is interval development of airspace disease in the left lung. There is also airspace disease in the right medial lung base. PLEURA: Suspect small pleural effusions, larger on the left. No pneumothorax apparent. CARDIOVASCULAR: Normal. OSSEOUS STRUCTURES: No significant abnormalities. VISUALIZED UPPER ABDOMEN: Normal. OTHER FINDINGS: None. IMPRESSION: Suspect left lower lobe pneumonia and small left pleural effusion. Atelectasis/ pneumonia in the right medial lung base. Follow-up is advised.
[2017-11-07] MEDS: MethylPREDNISolone 40 mg Vial IVP SCH (09:42)
[2017-11-07] MEDS: Azithromycin 250 MG in Sodium Chloride 0.9% 250 ML IVPB SCH (09:59)
--- NOTE | 2017-11-07 10:10 | CP.PCM.CON ---
History of Present Illness - History of Present Illness History of Present Illness: General Surgery consult for Dr. Patel Consulted for: gastrostomy tube placement Patient is a 52M with PMH of COPD who came to ER w/acute respiratory distress 2/ 2 a posterior laryngeal mass vs COPD exacerbation. Patient was taken to the OR for emergent tracheostomy with biopsy of mass with ENT. Surgery consulted for gastrostomy tube placement. Patient denies any abdominal pain, nausea, vomiting , or history of any abdominal surgeries or GERD. Review of Systems - Review of Systems All systems: reviewed and no additional remarkable complaints except (as per HPI ) Past Patient History - Infectious Disease Hx of Infectious Diseases: None - Past Medical History & Family History Past Medical History?: Yes - Past Social History Smoking Status: Current Some Days Smoker Alcohol: < 2 Drinks/Day Home Situation {Lives}: With Family - CARDIAC Hx Cardiac Disorders: No Hx Pacemaker: No - PULMONARY Hx Chronic Obstructive Pulmonary Disease (COPD): Yes Other/Comment: SMOKE 1 1/2 PACK A DAY, USES INHALER BUT DENIES HAVING ASTHMA ANY RESP. PROBLEM - NEUROLOGICAL Hx Neurological Disorder: No Hx Paralysis: No - HEENT Hx HEENT Problems: Yes (USES GLASSES FOR READING) - ENDOCRINE/METABOLIC Hx Endocrine Disorders: No - HEMATOLOGICAL/ONCOLOGICAL Hx Blood Transfusions: No Hx Blood Transfusion Reaction: No - INTEGUMENTARY Hx Dermatological Problems: No - MUSCULOSKELETAL/RHEUMATOLOGICAL Hx Falls: No - GASTROINTESTINAL Hx Gastrointestinal Disorders: No - GENITOURINARY/GYNECOLOGICAL Hx Genitourinary Disorders: Yes Other/Comment: HX OF FREQUENT URINATION ON MEDS - PSYCHIATRIC Hx Substance Use: No - SURGICAL HISTORY Hx Surgeries: No - ANESTHESIA Hx Anesthesia Reactions: No Hx Malignant Hyperthermia: No Meds Allergies/Adverse Reactions: Allergies Allergy/AdvReac Type Severity Reaction Status Date / Time No Known Allergies Allergy Verified 11/02/17 19:00 - Medications Medications: Current Medications Albuterol Sulfate (Albuterol 0.083% Inhal Snow (2.5 Mg/3 Ml) Ud) 2.5 mg IH Q2H PRN PRN Reason: Shortness of Breath Albuterol Sulfate (Albuterol 0.083% Inhal Snow (2.5 Mg/3 Ml) Ud) 2.5 mg INH [id number] [facility] Last Admin: 11/07/17 07:55 Dose: 2.5 mg Clonidine HCl (Catapres) 0.1 mg NG BID [facility] Last Admin: 11/07/17 09:39 Dose: 0.1 mg Heparin Sodium (Porcine) (Heparin) 5,000 units SC Q12 [facility] PRN Reason: Protocol Last Admin: 11/06/17 09:38 Dose: Not Given Hydralazine HCl (Apresoline) 10 mg IVP Q6 PRN PRN Reason: Systolic Blood Pressure >180 Last Admin: 11/06/17 12:04 Dose: 10 mg Azithromycin 250 mg/ Sodium (Chloride) 250 mls @ 167 mls/hr IVPB DAILY [facility] PRN Reason: Protocol Last Admin: 11/07/17 09:59 Dose: 167 mls/hr Ceftriaxone Sodium (Rocephin 1 Gram Ivpb) 1 gm in 100 mls @ 100 mls/hr IVPB DAILY@2200 [facility] PRN Reason: Protocol Last Admin: 11/06/17 21:41 Dose: 100 mls/hr Dexmedetomidine HCl (Precedex 4 Mcg/Ml (100 Ml)) 400 mcg in 100 mls @ 2.345 mls /hr IV .Q24H PRN; Protocol; 0.2 MCG/KG/HR PRN Reason: Agitation Last Titration: 11/05/17 13:00 Dose: 0 mcg/kg/hr, 0 mls/hr Fentanyl Citrate (Fentanyl Citrate/Sodium Chloride 1 Mg/100 Ml) 1,000 mcg in 100 mls @ 2 mls/hr IV .Q24H PRN; Protocol; 20 MCG/HR PRN Reason: TITRATE PER MD ORDER Last Titration: 11/06/17 21:12 Dose: Infused Propofol (Diprivan) 1,000 mg in 100 mls @ 1.633 mls/hr IV .Q24H PRN; Protocol; 5 MCG/KG/MIN PRN Reason: TITRATE PER MD ORDER Last Titration: 11/06/17 19:00 Dose: Infused Dextrose/Sodium Chloride (Dextrose 5%/0.45% Ns 1000 Ml) 1,000 mls @ 60 mls/hr IV .[id number] [facility] Last Admin: 11/06/17 17:19 Dose: 60 mls/hr Potassium Chloride (Potassium Chloride 20 Meq/100 Ml) 20 meq in 100 mls @ 50 mls/hr IVPB ONCE ONE Stop: 11/07/17 10:11 Lactic Acid (Lac-Hydrin 12% Lotion (225 G)) 1 gm EXT Q12 [facility] Last Admin: 11/06/17 22:51 Dose: 1 applic Lorazepam (Ativan) 0.5 mg IVP Q6H PRN; Protocol PRN Reason: Anxiety Last Admin: 11/06/17 21:30 Dose: 0.5 mg Losartan Potassium (Cozaar) 50 mg NG DAILY [facility] Last Admin: 11/07/17 09:40 Dose: 50 mg Methylprednisolone (Solu-Medrol) 40 mg IVP Q12 [facility] Last Admin: 11/07/17 09:42 Dose: 40 mg Nicotine (Nicoderm Cq) 1 patch TD DAILY [facility] Last Admin: 11/07/17 09:50 Dose: 1 patch Pantoprazole Sodium (Protonix Inj) 40 mg IVP DAILY [facility] Last Admin: 11/07/17 09:42 Dose: 40 mg Physical Exam - Constitutional Appears: Non-toxic, No Acute Distress - Head Exam Head Exam: ATRAUMATIC, NORMOCEPHALIC - Eye Exam Eye Exam: Normal appearance - ENT Exam ENT Exam: Mucous Membranes Moist, Normal Oropharynx Additional comments: tracheostomy in place, trachea midline - Respiratory Exam Respiratory Exam: NORMAL BREATHING PATTERN. absent: Accessory Muscle Use, Respiratory Distress - Cardiovascular Exam Cardiovascular Exam: RRR - GI/Abdominal Exam GI & Abdominal Exam: Soft. absent: Distended, Tenderness - Extremities Exam Extremities exam: Positive for: pedal pulses present. Negative for: calf tenderness, pedal edema - Neurological Exam Neurological exam: Alert, Oriented x3 - Psychiatric Exam Psychiatric exam: Normal Affect, Normal Mood - Skin Skin Exam: Dry, Normal Color, Warm Results - Vital Signs Recent Vital Signs: Last Vital Signs Temp 99.2 F 11/07/17 04:00 Pulse 94 H 11/07/17 09:39 Resp 26 H 11/07/17 06:40 BP 147/77 11/07/17 09:40 Pulse Ox 89 L 11/07/17 06:50 - Labs Result Diagrams: 11/07/17 06:00 11/07/17 06:00 Labs: Laboratory Results - last 24 hr 11/03/17 11/03/17 11/06/17 00:30 01:03 22:45 WBC RBC Hgb Hct MCV MCH MCHC RDW Plt Count MPV Gran % Lymph % (Auto) [place] % (Auto) Eos % (Auto) Baso % (Auto) Gran # Lymph # (Auto) [place] # (Auto) Eos # (Auto) Baso # (Auto) pCO2 44 pO2 70.0 L HCO3 32.0 H ABG pH 7.47 H ABG Total CO2 33.4 H ABG O2 Saturation 97.0 ABG O2 Content 17.3 ABG Base Excess 7.4 H ABG Hemoglobin 13.0 ABG Carboxyhemoglobin 1.4 POC ABG HHb (Measured) 2.9 ABG Methemoglobin 1.0 ABG O2 Capacity 17.8 Hgb O2 Saturation 94.7 L FiO2 28.0 Sodium Potassium Chloride Carbon Dioxide Anion Gap BUN Creatinine Est GFR ( Amer) Est GFR (Non-Af Amer) Random Glucose Calcium Phosphorus Magnesium Total Bilirubin AST ALT Alkaline Phosphatase Total Protein Albumin Globulin Albumin/Globulin Ratio Mycoplasma pneumon IgG 1.63 H Mycoplasma pneumon IgM 183 Ur Strep pneumoniae Ag Not detected 11/07/17 11/07/17 11/07/17 04:41 06:00 06:00 WBC 12.5 H D RBC 4.30 Hgb 12.6 L Hct 38.3 L MCV 89.1 MCH 29.3 MCHC 32.9 RDW 13.3 Plt Count 305 MPV 9.8 Gran % 84.1 H Lymph % (Auto) 8.2 L [place] % (Auto) 7.6 H Eos % (Auto) 0.0 L Baso % (Auto) 0.1 Gran # 10.49 H Lymph # (Auto) 1.0 L [place] # (Auto) 1.0 H Eos # (Auto) 0.0 Baso # (Auto) 0.01 pCO2 41 pO2 70.0 L HCO3 35.1 H ABG pH 7.54 H ABG Total CO2 36.4 H ABG O2 Saturation 97.2 ABG O2 Content 15.9 ABG Base Excess 11.5 H ABG Hemoglobin 11.9 ABG Carboxyhemoglobin 1.8 H POC ABG HHb (Measured) 2.7 ABG Methemoglobin 0.8 ABG O2 Capacity 16.4 Hgb O2 Saturation 94.7 L FiO2 28.0 Sodium 140 Potassium 3.4 L Chloride 99 Carbon Dioxide 34 H Anion Gap 10 BUN 11 Creatinine 0.7 L Est GFR ( Amer) > 60 Est GFR (Non-Af Amer) > 60 Random Glucose 107 Calcium 9.2 Phosphorus 3.5 Magnesium 1.9 Total Bilirubin 0.6 AST 31 ALT 40 Alkaline Phosphatase 71 Total Protein 6.2 Albumin 3.3 Globulin 2.9 Albumin/Globulin Ratio 1.2 Mycoplasma pneumon IgG Mycoplasma pneumon IgM Ur Strep pneumoniae Ag Assessment & Plan - Assessment and Plan (Free Text) Assessment: 52M with Acute respiratory distress d/t posterior laryngeal mass with tracheostomy tube Plan: -OR for open gastrostomy tube placement on Saturday 11/11 -medical optimization -Continue management per primary/ICU -PRN pain and nausea medication Discussed with , who agrees with the plan Elizabet Tovar PGY2
--- NOTE | 2017-11-07 11:46 | OP ---
ADDENDUM PROCEDURE DATE: 11/06/2017 The direct laryngoscope was then inserted into the oral cavity. All the above-mentioned subsites were inspected and appeared to be normal. The laryngoscope was advanced into the glottis. Friable tissue was noted in the left base of tongue that was extending into the left lingual surface of the epiglottis. The scope was advanced under the epiglottis. The laryngeal surface of the epiglottis on the left side demonstrated friable mucosa. In addition, there is large friable mucosa in the entire left piriform. The left arytenoid was almost entirely missing due to necrotic tissue. Left false vocal cord and left true vocal cord all demonstrated friable mucosa on the right hand side. The right true cord, right false cord, right arytenoid appeared normal, and the right piriform appeared normal as well, but multiple biopsies were taken from the subsites using cup forceps. First biopsy was from the left true vocal cord, then another one from the left false vocal cord, then from the left arytenoid, left base of tongue, and also the left epiglottis. In addition, photo-documentation was taken from the subsites, and Afrin soaked pledgets were then placed to achieve hemostasis where the biopsies were taken. After appropriate amount of time, this pledget was removed. Hemostasis was noted. The laryngoscope was then removed and the mouth guard was removed. The patient tolerated the procedure well. He then was awakened from anesthesia and transferred to the ICU Unit in stable condition. Raoul Okeefe DO
[2017-11-07] MEDS: Dextrose 5%/0.45% NS 1,000 ML IV SCH (13:25)
[2017-11-07] MEDS ORDERED: Iohexol 350 MG/100 ML VIAL ONE (13:43)
--- NOTE | 2017-11-07 14:03 | CP.PCM.PN ---
<Deidra Fox - Last Filed: 11/07/17 13:58> Subjective - Date & Time of Evaluation Date of Evaluation: 11/07/17 Time of Evaluation: 13:58 - Subjective Subjective: Deidra Fox, PGY1, Medicine Progress Note for Dr Hinojosa: Patient seen and examined at bedside. No acute events overnight. Pt remains awake, alert, following commands, has trach in place. Pt to undergo Ct chest/abd /pelvis today. Admits to unintentional weight loss in prior few months. No n/v/f /c, abdominal pain, leg swelling. ROS limited as pt has trach. Objective - Vital Signs/Intake and Output Vital Signs (last 24 hours): Temp Pulse Resp BP Pulse Ox 99.2 F 85 26 H 129/85 89 L 11/07/17 04:00 11/07/17 13:19 11/07/17 06:40 11/07/17 13:19 11/07/17 06:50 Intake and Output: 11/07/17 11/07/17 06:59 18:59 Intake Total 1213 Output Total 2300 Balance -1087 - Medications Medications: Current Medications Albuterol Sulfate (Albuterol 0.083% Inhal Nsow (2.5 Mg/3 Ml) Ud) 2.5 mg IH Q2H PRN PRN Reason: Shortness of Breath Albuterol Sulfate (Albuterol 0.083% Inhal Snow (2.5 Mg/3 Ml) Ud) 2.5 mg INH [id number] [facility] Last Admin: 11/07/17 13:19 Dose: 2.5 mg Clonidine HCl (Catapres) 0.1 mg NG BID [facility] Last Admin: 11/07/17 10:40 Dose: Not Given Clonidine HCl (Catapres-Tts2 0.2 Mg/24 Hr) 1 patch TD Q7D@1000 [facility] Last Admin: 11/07/17 13:19 Dose: 1 patch Heparin Sodium (Porcine) (Heparin) 5,000 units SC Q12 [facility] PRN Reason: Protocol Last Admin: 11/06/17 09:38 Dose: Not Given Hydralazine HCl (Apresoline) 10 mg IVP Q6 PRN PRN Reason: Systolic Blood Pressure >180 Last Admin: 11/06/17 12:04 Dose: 10 mg Azithromycin 250 mg/ Sodium (Chloride) 250 mls @ 167 mls/hr IVPB DAILY [facility] PRN Reason: Protocol Last Admin: 11/07/17 09:59 Dose: 167 mls/hr Ceftriaxone Sodium (Rocephin 1 Gram Ivpb) 1 gm in 100 mls @ 100 mls/hr IVPB DAILY@2200 [facility] PRN Reason: Protocol Last Admin: 11/06/17 21:41 Dose: 100 mls/hr Dexmedetomidine HCl (Precedex 4 Mcg/Ml (100 Ml)) 400 mcg in 100 mls @ 2.345 mls /hr IV .Q24H PRN; Protocol; 0.2 MCG/KG/HR PRN Reason: Agitation Last Titration: 11/05/17 13:00 Dose: 0 mcg/kg/hr, 0 mls/hr Fentanyl Citrate (Fentanyl Citrate/Sodium Chloride 1 Mg/100 Ml) 1,000 mcg in 100 mls @ 2 mls/hr IV .Q24H PRN; Protocol; 20 MCG/HR PRN Reason: TITRATE PER MD ORDER Last Titration: 11/06/17 21:12 Dose: Infused Propofol (Diprivan) 1,000 mg in 100 mls @ 1.633 mls/hr IV .Q24H PRN; Protocol; 5 MCG/KG/MIN PRN Reason: TITRATE PER MD ORDER Last Titration: 11/06/17 19:00 Dose: Infused Dextrose/Sodium Chloride (Dextrose 5%/0.45% Ns 1000 Ml) 1,000 mls @ 60 mls/hr IV .[id number] [facility] Last Admin: 11/07/17 13:25 Dose: 60 mls/hr Lactic Acid (Lac-Hydrin 12% Lotion (225 G)) 1 gm EXT Q12 [facility] Last Admin: 11/06/17 22:51 Dose: 1 applic Lorazepam (Ativan) 0.5 mg IVP Q6H PRN; Protocol PRN Reason: Anxiety Last Admin: 11/06/17 21:30 Dose: 0.5 mg Losartan Potassium (Cozaar) 50 mg NG DAILY [facility] Last Admin: 11/07/17 10:40 Dose: Not Given Methylprednisolone (Solu-Medrol) 40 mg IVP Q12 [facility] Last Admin: 11/07/17 09:42 Dose: 40 mg Nicotine (Nicoderm Cq) 1 patch TD DAILY [facility] Last Admin: 11/07/17 09:50 Dose: 1 patch Pantoprazole Sodium (Protonix Inj) 40 mg IVP DAILY [facility] Last Admin: 11/07/17 09:42 Dose: 40 mg - Labs Labs: 11/07/17 06:00 11/07/17 06:00 PT 14.2 SECONDS (9.4-12.5) H 11/02/17 19:35 INR 1.24 (0.93-1.08) H 11/02/17 19:35 APTT 24.6 Seconds (25.1-36.5) L 11/05/17 07:00 - Additional Findings Additional findings: - Constitutional Appears: Non-toxic, No Acute Distress - Head Exam Head Exam: ATRAUMATIC, NORMOCEPHALIC - Eye Exam Eye Exam: EOMI, PERRL. absent: Conjunctival injection, Nystagmus, Scleral icterus Pupil Exam: PERRL. absent: Fixed, Irregular, Miosis, Unequal - ENT Exam ENT Exam: Mucous Membranes Moist - Neck Exam Neck Exam: Full ROM - Respiratory Exam Respiratory Exam: Clear to Ausculation Bilateral, NORMAL BREATHING PATTERN. absent: Accessory Muscle Use, Rales, Rhonchi, Wheezes, Respiratory Distress Additional comments: + trach in place. - Cardiovascular Exam Cardiovascular Exam: RRR, +S1, +S2. absent: Murmur - GI/Abdominal Exam GI & Abdominal Exam: Soft, Normal Bowel Sounds. absent: Distended, Rigid, Tenderness, Mass, Organomegaly, Rebound - Extremities Exam Extremities Exam: Full ROM, Normal Inspection. absent: Calf Tenderness, Pedal Edema - Back Exam Back Exam: NORMAL INSPECTION - Neurological Exam Neurological Exam: Alert, Awake, Oriented x3 - Psychiatric Exam Psychiatric exam: Normal Affect, Normal Mood - Skin Skin Exam: Dry, Normal Color, Warm Assessment and Plan - Assessment and Plan (Free Text) Assessment: 52 yo male with PMH asthma, COPD?, tobacco abuse, possible alcohol abuse admitted for hypercapneic respiratory failure (2/2 likely laryngeal mass), hyponatremia, leukocytosis, indeterminate trops. Pt s/p trach and laryngeal mass biopsy yesterday: Hypercapneic respiratory failure: 2/2 laryngeal mass - CT neck soft tissue today showed Large 2.7 x 2.0 x 4.5 cm left supraglottic soft tissue mass extending involving the left aryepiglottic fold, paraglottic fat, left thyroid cartilage with destruction of the posterior cartilage and extension beyond the margin of the thyroid cartilage as well as posterior extension into the hypopharynx. 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 - Echo EF 49%. LV systolic function mildly impaired. Mild TR/MR. - ENT consult. appreciate recs. - Trach in place - Solumedrol 40 q 12 - Duonebs filomena and prn - hx of asthma and COPD - HOB elevated, aspiration precaution - IV antibiotics azithro and rocephine Hyponatremia: likely hypovolemic 2/2 dehydration vs vomiting/diarrhea vs beer [place] - resolved - Jannette <5 - Nephro consulted. appreciate recs. HTN: - Increased Cozaar 50 mg PO daily. Added clonidine patch. - IV Hydralazine q6 prn AMS, resolved: 2/2 CO2 narcosis - Head CT negative - UDS, ETOH levels neg - Neuro checks - Cont to monitor Anemia, mild: - likely mixed: iron deficiency and ACD - Fe low, tibc low, percent sat low, normal ferritin - C/w Venofer 200 mg IV q 48h for 5 days, as per nephro. - Cont to monitor Indeterminate trops: likely demand ischemia - 0.03->0.05->0.04 - Cardio consult. appreciate recs. - Echo showed EF 49%. left ventricle systolic function mildly impaired. Mild mitral regurg. mild TR. Alcohol withdrawal: - on propofol/precedex Tobacco abuse: - Nicotine patch GI ppx: Protonix DVT ppx: Heparin SC Discussed with Dr Hinojosa. <Casey Hinojosa - Last Filed: 11/07/17 17:40> Objective - Vital Signs/Intake and Output Vital Signs (last 24 hours): Temp Pulse Resp BP Pulse Ox 99.2 F 85 26 H 129/85 89 L 11/07/17 04:00 11/07/17 13:19 11/07/17 06:40 11/07/17 13:19 11/07/17 06:50 Intake and Output: 11/07/17 11/07/17 06:59 18:59 Intake Total 1213 Output Total 2300 Balance -1087 - Medications Medications: Current Medications Albuterol Sulfate (Albuterol 0.083% Inhal Snow (2.5 Mg/3 Ml) Ud) 2.5 mg IH Q2H PRN PRN Reason: Shortness of Breath Albuterol Sulfate (Albuterol 0.083% Inhal Snow (2.5 Mg/3 Ml) Ud) 2.5 mg INH [id number] [facility] Last Admin: 11/07/17 13:19 Dose: 2.5 mg Clonidine HCl (Catapres) 0.1 mg NG BID [facility] Last Admin: 11/07/17 10:40 Dose: Not Given Clonidine HCl (Catapres-Tts2 0.2 Mg/24 Hr) 1 patch TD Q7D@1000 [facility] Last Admin: 11/07/17 13:19 Dose: 1 patch Heparin Sodium (Porcine) (Heparin) 5,000 units SC Q12 [facility] PRN Reason: Protocol Last Admin: 11/06/17 09:38 Dose: Not Given Hydralazine HCl (Apresoline) 10 mg IVP Q6 PRN PRN Reason: Systolic Blood Pressure >180 Last Admin: 11/06/17 12:04 Dose: 10 mg Azithromycin 250 mg/ Sodium (Chloride) 250 mls @ 167 mls/hr IVPB DAILY [facility] PRN Reason: Protocol Last Admin: 11/07/17 09:59 Dose: 167 mls/hr Ceftriaxone Sodium (Rocephin 1 Gram Ivpb) 1 gm in 100 mls @ 100 mls/hr IVPB DAILY@2200 [facility] PRN Reason: Protocol Last Admin: 11/06/17 21:41 Dose: 100 mls/hr Dextrose/Sodium Chloride (Dextrose 5%/0.45% Ns 1000 Ml) 1,000 mls @ 60 mls/hr IV .[id number] [facility] Last Admin: 11/07/17 13:25 Dose: 60 mls/hr Lactic Acid (Lac-Hydrin 12% Lotion (225 G)) 1 gm EXT Q12 [facility] Last Admin: 11/06/17 22:51 Dose: 1 applic Lorazepam (Ativan) 0.5 mg IVP Q6H PRN; Protocol PRN Reason: Anxiety Last Admin: 11/06/17 21:30 Dose: 0.5 mg Losartan Potassium (Cozaar) 50 mg NG DAILY [facility] Last Admin: 11/07/17 10:40 Dose: Not Given Methylprednisolone (Solu-Medrol) 40 mg IVP DAILY [facility] Nicotine (Nicoderm Cq) 1 patch TD DAILY [facility] Last Admin: 11/07/17 09:50 Dose: 1 patch Pantoprazole Sodium (Protonix Inj) 40 mg IVP DAILY [facility] Last Admin: 11/07/17 09:42 Dose: 40 mg - Labs Labs: 11/07/17 06:00 11/07/17 06:00 PT 14.2 SECONDS (9.4-12.5) H 11/02/17 19:35 INR 1.24 (0.93-1.08) H 11/02/17 19:35 APTT 24.6 Seconds (25.1-36.5) L 11/05/17 07:00 Attending/Attestation - Attestation I have personally seen and examined this patient.: Yes I have fully participated in the care of the patient.: Yes I have reviewed all pertinent clinical information, including history, physical exam and plan: Yes Notes (Text): 11/07/17 17:39 52 year old male with past medical history of COPD and alcohol abuse who presented with hypercapnic respiratory failure s/p intubation. He is on albuterol, antibiotics and iv steroids. Repeat CT neck was reviewed as above. He is s/p tracheostomy and biopsy yesterday. CT chest/abd/pelvis reviewed which did not show any overt mass or lymphadenopathy. Hyponatremia has improved since admission. Nephrology is following. Cardiology is following for indeterminate troponins. Echocardiogram was reviewed. Patient is on losartan and hydralazine prn for hypertension. Will replete and repeat lytes. Casey Hinojosa MD Hospitalist.
--- NOTE | 2017-11-07 17:06 | CT ---
PROCEDURE: CT Chest, Abdomen and Pelvis with intravenous contrast HISTORY: laryngeal mass; primary tumor? COMPARISON: No prior chest CT available for comparison. TECHNIQUE: IV dose administered: Omnipaque 350, 96 cc Radiation dose: Total exam DLP = 289.43 mGy-cm. This CT exam was performed using one or more of the following dose reduction techniques: Automated exposure control, adjustment of the mA and/or kV according to patient size, and/or use of iterative reconstruction technique. FINDINGS: CT CHEST WITH CONTRAST: LUNGS: Respiratory motion artifacts degrade inferior lung zones bilaterally. Bilateral basilar dependent atelectasis favored over infiltrates, greater the left and right sides and minimally affects the dependent portions of the left upper and right middle lobes. A tiny air cyst noted the right apex as a solitary finding. A definitive mass is not appreciated bilaterally. Atelectatic changes at the bases obscure complete evaluation of the lower lobes. Tracheostomy tube is apparent at the upper mid trachea with the remaining central airways clear. MEDIASTINUM: Unremarkable. Normal caliber aorta and pulmonary arterial trunk. No aortic dissection. Normal size heart. LYMPH NODES: Unremarkable. PLEURA: Trace left pleural effusion identified. No right pleural effusion. No pericardial effusion. No pneumothorax bilaterally. BONES: No destructive bony lesion or fracture identified. OTHER FINDINGS: None. CT ABDOMEN AND PELVIS: LIVER: Unremarkable. No gross lesion or ductal dilatation. GALLBLADDER AND BILE DUCTS: Gallbladder is contracted and limited evaluation. Cholelithiasis is minimally questioned in the lumen. PANCREAS: Unremarkable. No gross lesion or ductal dilatation. SPLEEN: Unremarkable. ADRENALS: Unremarkable. No mass. KIDNEYS AND URETERS: A tiny cyst is seen at the upper pole left kidney medially measuring 1 cm. A similar but only 4 mm lucency is seen at the upper pole as well which too small to characterize. Right kidney appears unremarkable no obstructive uropathy bilaterally. No definitive enhancing renal mass bilaterally. VASCULATURE: Non aneurysmal, distally atherosclerotic abdominal aorta is identified. BOWEL: The stomach appears collapsed and is constantly limited evaluation. Further, lack of oral contrast limits evaluation of the stomach and bowel. No bowel obstruction is identified and there is mild fecal loading seen throughout the colon. APPENDIX: The appendix is not identified. No definitive pattern appendicitis is appreciated nevertheless. PERITONEUM: Unremarkable. No free fluid. No free air. LYMPH NODES: Unremarkable. No enlarged lymph nodes. BLADDER: Urinary bladder is decompressed by Amanda catheter. Mural thickness is poorly evaluated as result. REPRODUCTIVE: Unremarkable. BONES: No definite destructive bony lesion appreciate. Advanced multilevel degenerative thoracolumbar disc disease appreciated. OTHER FINDINGS: None. IMPRESSION: 1. No overt mass seen the chest, abdomen or pelvis or significant lymphadenopathy at this time. Limited bilateral basilar dependent atelectasis may obscure underlying lesions. No definite destructive bony lesion appreciated. 2. Tracheostomy tube noted in position. 3. Questionable cholelithiasis. Gallbladder is contracted. 4. Left renal cyst noted. An additional tiny lucencies too small to characterize in the upper pole left kidney. No gross enhancing renal mass appreciated bilaterally. 5. Limit evaluation of the stomach and bowel to lack of oral contrast agents and noted stomach collapse. 6. Amanda catheterization decompresses the urinary bladder.
--- NOTE | 2017-11-07 19:24 | PN ---
DATE: 11/07/2017 SUBJECTIVE: Patient is seen in the ICU. He has a trach. He is awake, he is alert, he is responsive. Family members are at bedside. PHYSICAL EXAMINATION: GENERAL: Thinly built, older than stated age appearing male, lying in bed. VITAL SIGNS: Blood pressure 129/85, heart rate 85, respiratory rate 26, temperature 99.2, T-max is 99.7. HEENT: Normocephalic, atraumatic, positive pallor. NECK: Supple, no JVD. LUNGS: Bilateral equal air entry, equal expansion, no rales. CARDIAC: S1, S2. Regular rate and rhythm. No murmur, no rub. ABDOMEN: Soft, nondistended, nontender, bowel sounds present. EXTREMITIES: No lower extremity edema. INTAKE AND OUTPUT: 1238/3150. LABORATORY DATA: WBC 12.5, hemoglobin 12.6, hematocrit 38, platelets 305. Sodium 140, potassium 3.4, chloride 99, CO2 of 34, BUN 11, creatinine 0.7, glucose 107, calcium 9.2, phosphorus 3.2, magnesium 1.9. Cultures negative. CURRENT MEDICATIONS: Apresoline 10 mg p.r.n., Ativan, Zithromax, Catapres 0.1, Catapres patch #2, losartan 50, D5 half-normal saline at 60, potassium chloride 20 mEq x1, Protonix, ceftriaxone, Solu-Medrol. ASSESSMENT: 1. Hyponatremia, depletional, resolved. 2. Hypokalemia. 3. Respiratory failure secondary to left-sided mass. 4. Hypertension. 5. Chronic obstructive pulmonary disease. PLAN: 1. Replace potassium as needed. 2. Follow up biopsy of supraglottic mass. 3. We will discontinue followup, re-consult as needed. Natasha Duncan MD
[2017-11-07] MEDS: Ammonium Lactate 12% Lotion (225 g) EXT SCH ×2 (21:10→22:09)
[2017-11-07] MEDS: cefTRIAXone 1 gm 1 GM/100 ML BAG IVPB SCH (21:57)
[2017-11-08] MEDS: Albuterol 0.083% Inhal Sol (2.5 mg/3 mL) UD INH SCH ×4 (01:20→20:00)
[2017-11-08] MEDS: Dextrose 5%/0.45% NS 1,000 ML IV SCH (03:43)
[2017-11-08 07:07] LABS: BASO # 0.01 K/mm3 (0.0-2.0); BASO % 0.1 % (0.0-3.0); EOS # 0.1 (0.0-0.7); EOS % 0.5 % (1.5-5.0); GRAN # 11.63 (1.4-6.5); GRAN % 81.5 % (50.0-68.0); HEMOGLOBIN 12.7 g/dL (14.0-18.0); LYMPH # 1.4 (1.2-3.4); LYMPH % 9.6 % (22.0-35.0); MEAN CELL VOLUME 89.1 fl (80.0-105.0); MEAN CORPUSCULAR HEMOGLOBIN 29.4 pg (25.0-35.0); MEAN PLATELET VOLUME 9.8 fl (7.0-11.0); MONO # 1.2 (0.1-0.6); MONO % 8.3 % (1.0-6.0); RBC 4.32 10^6/uL (3.5-6.1); RED CELL DISTRIBUTION WIDTH 13.2 % (11.5-14.5); WHITE BLOOD COUNT 14.3 10^3/ul (4.5-11.0)
[2017-11-08 07:41] LABS: ALB/GLOB RATIO 1.1 (1.1-1.8); ALBUMIN 3.2 g/dL (3.0-4.8); ALT/SGPT 37 U/L (7-56); AST/SGOT 27 U/L (17-59); BLOOD UREA NITROGEN 14 mg/dL (7-21); CALCIUM 9.5 mg/dL (8.4-10.5); GFR AFRICAN-AMERICAN > 60; GFR NON-AFRICAN AMERICAN > 60
--- NOTE | 2017-11-08 08:02 | RAD ---
HISTORY: Intubated/follow up COMPARISON: Portable chest 11/07/2017 5:21 a.m.. FINDINGS: Tracheostomy tube unchanged in position. LUNGS: Near resolution of medial basilar airspace disease bilaterally. PLEURA: No significant pleural effusion identified bilaterally, no pneumothorax apparent. CARDIOVASCULAR: Normal. OSSEOUS STRUCTURES: No significant abnormalities. VISUALIZED UPPER ABDOMEN: Normal. OTHER FINDINGS: None. IMPRESSION: Near resolution of medial basilar airspace disease bilaterally. No pleural effusions identified bilaterally suggesting resolution as well.
[2017-11-08] MEDS ORDERED: Albuterol 0.083% Inhal Sol (2.5 mg/3 mL) UD INH SCH (08:15)
[2017-11-08] MEDS: Ammonium Lactate 12% Lotion (225 g) EXT SCH ×2 (09:24→22:49)
[2017-11-08] MEDS: MethylPREDNISolone 40 mg Vial IVP SCH (09:25)
[2017-11-08] MEDS: Azithromycin 250 MG in Sodium Chloride 0.9% 250 ML IVPB SCH (10:09)
--- NOTE | 2017-11-08 10:13 | CP.PCM.PN ---
<Deidra Fox - Last Filed: 11/08/17 12:22> Subjective - Date & Time of Evaluation Date of Evaluation: 11/08/17 Time of Evaluation: 10:10 - Subjective Subjective: Deidra Fox, PGY1, Medicine Progress Note for Dr Hinojosa: Patient seen and examined at bedside. No acute events overnight. Denies fever, chills, nausea, vomiting, abdominal pain. Pt fully awake, AOx3. Pt currently comfortable, watching TV, family at bedside. Reports expectorations from trach. No sob, n/v/f/c, abdominal pain, leg swelling. ROS limited as pt has trach. Objective - Vital Signs/Intake and Output Vital Signs (last 24 hours): Temp Pulse Resp BP Pulse Ox 99.6 F 80 33 H 140/70 94 L 11/08/17 04:00 11/08/17 07:00 11/08/17 07:00 11/08/17 06:01 11/08/17 07:00 Intake and Output: 11/08/17 11/08/17 06:59 18:59 Intake Total 1020 Output Total 2750 Balance -1730 - Medications Medications: Current Medications Albuterol Sulfate (Albuterol 0.083% Inhal Snow (2.5 Mg/3 Ml) Ud) 2.5 mg IH Q2H PRN PRN Reason: Shortness of Breath Albuterol Sulfate (Albuterol 0.083% Inhal Snow (2.5 Mg/3 Ml) Ud) 2.5 mg INH [id number] [facility] Last Admin: 11/08/17 08:27 Dose: 2.5 mg Clonidine HCl (Catapres) 0.1 mg NG BID [facility] Last Admin: 11/07/17 21:10 Dose: Not Given Clonidine HCl (Catapres-Tts2 0.2 Mg/24 Hr) 1 patch TD Q7D@1000 [facility] Last Admin: 11/07/17 13:19 Dose: 1 patch Heparin Sodium (Porcine) (Heparin) 5,000 units SC Q12 [facility] PRN Reason: Protocol Last Admin: 11/06/17 09:38 Dose: Not Given Hydralazine HCl (Apresoline) 10 mg IVP Q6 PRN PRN Reason: Systolic Blood Pressure >180 Last Admin: 11/06/17 12:04 Dose: 10 mg Azithromycin 250 mg/ Sodium (Chloride) 250 mls @ 167 mls/hr IVPB DAILY [facility] PRN Reason: Protocol Last Admin: 11/08/17 10:09 Dose: 167 mls/hr Ceftriaxone Sodium (Rocephin 1 Gram Ivpb) 1 gm in 100 mls @ 100 mls/hr IVPB DAILY@2200 [facility] PRN Reason: Protocol Last Admin: 11/07/17 21:57 Dose: 100 mls/hr Potassium Chloride (Potassium Chloride 10 Meq/100 Ml) 10 meq in 100 mls @ 50 mls/hr IVPB Q2H [facility] Stop: 11/08/17 12:14 Last Admin: 11/08/17 10:06 Dose: 50 mls/hr Potassium Chloride 20 meq/ (Dextrose/Sodium Chloride) 1,010 mls @ 60 mls/hr IV .[id number] [facility] Lactic Acid (Lac-Hydrin 12% Lotion (225 G)) 1 gm EXT Q12 [facility] Last Admin: 11/08/17 09:24 Dose: 1 applic Lorazepam (Ativan) 0.5 mg IVP Q6H PRN; Protocol PRN Reason: Anxiety Last Admin: 11/07/17 22:00 Dose: 0.5 mg Losartan Potassium (Cozaar) 50 mg NG DAILY [facility] Last Admin: 11/07/17 10:40 Dose: Not Given Methylprednisolone (Solu-Medrol) 40 mg IVP DAILY [facility] Last Admin: 11/08/17 09:25 Dose: 40 mg Nicotine (Nicoderm Cq) 1 patch TD DAILY [facility] Last Admin: 11/08/17 09:24 Dose: 1 patch Pantoprazole Sodium (Protonix Inj) 40 mg IVP DAILY [facility] Last Admin: 11/08/17 09:25 Dose: 40 mg - Labs Labs: 11/08/17 06:00 11/08/17 06:00 PT 14.2 SECONDS (9.4-12.5) H 11/02/17 19:35 INR 1.24 (0.93-1.08) H 11/02/17 19:35 APTT 24.6 Seconds (25.1-36.5) L 11/05/17 07:00 - Additional Findings Additional findings: - Constitutional Appears: Non-toxic, No Acute Distress - Head Exam Head Exam: ATRAUMATIC, NORMOCEPHALIC - Eye Exam Eye Exam: EOMI, PERRL. absent: Conjunctival injection, Nystagmus, Scleral icterus Pupil Exam: PERRL. absent: Fixed, Irregular, Miosis, Unequal - ENT Exam ENT Exam: Mucous Membranes Moist - Neck Exam Neck Exam: Full ROM - Respiratory Exam Respiratory Exam: Clear to Ausculation Bilateral (mild bronchospasm), NORMAL BREATHING PATTERN. absent: Accessory Muscle Use, Rales, Rhonchi, Wheezes, Respiratory Distress Additional comments: + trach in place. - Cardiovascular Exam Cardiovascular Exam: RRR, +S1, +S2. absent: Murmur - GI/Abdominal Exam GI & Abdominal Exam: Soft, Normal Bowel Sounds. absent: Distended, Rigid, Tenderness, Mass, Organomegaly, Rebound - Extremities Exam Extremities Exam: Full ROM, Normal Inspection. absent: Calf Tenderness, Pedal Edema - Back Exam Back Exam: NORMAL INSPECTION - Neurological Exam Neurological Exam: Alert, Awake, Oriented x3 - Psychiatric Exam Psychiatric exam: Normal Affect, Normal Mood - Skin Skin Exam: Dry, Normal Color, Warm Assessment and Plan - Assessment and Plan (Free Text) Assessment: 52 yo male with PMH asthma, COPD?, tobacco abuse, possible alcohol abuse admitted for hypercapneic respiratory failure (2/2 likely laryngeal mass), hyponatremia, leukocytosis, indeterminate trops. Pt s/p trach and laryngeal mass biopsy, awaiting biopsy results and PEG placement on Saturday 11/11 per Surgery: Hypercapneic respiratory failure: 2/2 laryngeal mass, s/p biopsy by ENT 11/06 - CT neck soft tissue today showed Large 2.7 x 2.0 x 4.5 cm left supraglottic soft tissue mass extending involving the left aryepiglottic fold, paraglottic fat, left thyroid cartilage with destruction of the posterior cartilage and extension beyond the margin of the thyroid cartilage as well as posterior extension into the hypopharynx. 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 - Chest/abd/pelvis CT neg for overt masses. - Echo EF 49%. LV systolic function mildly impaired. Mild TR/MR. - ENT consult. appreciate recs. - Trach in place - Solumedrol 40 q day - Duonebs filomena increased to q4 and prn - hx of asthma and COPD - HOB elevated, aspiration precaution - IV antibiotics azithro and rocephine Hyponatremia: likely hypovolemic 2/2 dehydration vs vomiting/diarrhea vs beer [place] - resolved - Jannette <5 - Nephro consulted. appreciate recs. HTN: - Increased Cozaar 50 mg PO daily. Added clonidine patch. - IV Hydralazine q6 prn AMS, resolved: 2/2 CO2 narcosis - Head CT negative - UDS, ETOH levels neg - Neuro checks - Cont to monitor Anemia, mild: - likely mixed: iron deficiency and ACD - Fe low, tibc low, percent sat low, normal ferritin - C/w Venofer 200 mg IV q 48h for 5 days, as per nephro. - Cont to monitor Indeterminate trops: likely demand ischemia - 0.03->0.05->0.04 - Cardio consult. appreciate recs. - Echo showed EF 49%. left ventricle systolic function mildly impaired. Mild mitral regurg. mild TR. Alcohol withdrawal: - CIWA scores low. COnt to monitor. Tobacco abuse: - Nicotine patch GI ppx: Protonix DVT ppx: Heparin SC Discussed with Dr Hinojosa. <Casey Hinojosa - Last Filed: 11/08/17 13:59> Objective - Vital Signs/Intake and Output Vital Signs (last 24 hours): Temp Pulse Resp BP Pulse Ox 98.9 F 80 33 H 140/70 94 L 11/08/17 11:22 11/08/17 10:00 11/08/17 07:00 11/08/17 06:01 11/08/17 07:00 Intake and Output: 11/08/17 11/08/17 06:59 18:59 Intake Total 1020 Output Total 2750 Balance -1730 - Medications Medications: Current Medications Albuterol Sulfate (Albuterol 0.083% Inhal Snow (2.5 Mg/3 Ml) Ud) 2.5 mg IH Q2H PRN PRN Reason: Shortness of Breath Albuterol Sulfate (Albuterol 0.083% Inhal Snow (2.5 Mg/3 Ml) Ud) 2.5 mg INH [id number] [facility] Last Admin: 11/08/17 13:13 Dose: 2.5 mg Clonidine HCl (Catapres) 0.1 mg NG BID [facility] Last Admin: 11/07/17 21:10 Dose: Not Given Clonidine HCl (Catapres-Tts2 0.2 Mg/24 Hr) 1 patch TD Q7D@1000 [facility] Last Admin: 11/07/17 13:19 Dose: 1 patch Heparin Sodium (Porcine) (Heparin) 5,000 units SC Q12 [facility] PRN Reason: Protocol Last Admin: 11/06/17 09:38 Dose: Not Given Hydralazine HCl (Apresoline) 10 mg IVP Q6 PRN PRN Reason: Systolic Blood Pressure >180 Last Admin: 11/06/17 12:04 Dose: 10 mg Azithromycin 250 mg/ Sodium (Chloride) 250 mls @ 167 mls/hr IVPB DAILY [facility] PRN Reason: Protocol Last Admin: 11/08/17 10:09 Dose: 167 mls/hr Ceftriaxone Sodium (Rocephin 1 Gram Ivpb) 1 gm in 100 mls @ 100 mls/hr IVPB DAILY@2200 [facility] PRN Reason: Protocol Last Admin: 11/07/17 21:57 Dose: 100 mls/hr Potassium Chloride 20 meq/ (Dextrose/Sodium Chloride) 1,010 mls @ 60 mls/hr IV .[id number] [facility] Last Admin: 11/08/17 10:21 Dose: 60 mls/hr Lactic Acid (Lac-Hydrin 12% Lotion (225 G)) 1 gm EXT Q12 [facility] Last Admin: 11/08/17 09:24 Dose: 1 applic Lorazepam (Ativan) 0.5 mg IVP Q6H PRN; Protocol PRN Reason: Anxiety Last Admin: 11/07/17 22:00 Dose: 0.5 mg Losartan Potassium (Cozaar) 50 mg NG DAILY [facility] Last Admin: 11/07/17 10:40 Dose: Not Given Methylprednisolone (Solu-Medrol) 40 mg IVP DAILY [facility] Last Admin: 11/08/17 09:25 Dose: 40 mg Nicotine (Nicoderm Cq) 1 patch TD DAILY [facility] Last Admin: 11/08/17 09:24 Dose: 1 patch Pantoprazole Sodium (Protonix Inj) 40 mg IVP DAILY [facility] Last Admin: 11/08/17 09:25 Dose: 40 mg - Labs Labs: 11/08/17 06:00 11/08/17 06:00 PT 14.2 SECONDS (9.4-12.5) H 11/02/17 19:35 INR 1.24 (0.93-1.08) H 11/02/17 19:35 APTT 24.6 Seconds (25.1-36.5) L 11/05/17 07:00 Attending/Attestation - Attestation I have personally seen and examined this patient.: Yes I have fully participated in the care of the patient.: Yes I have reviewed all pertinent clinical information, including history, physical exam and plan: Yes Notes (Text): 11/08/17 13:56 52 year old male with past medical history of COPD and alcohol abuse who presented with hypercapnic respiratory failure s/p intubation. CT neck showed large supraglottic soft tissue mass with metastatic lymph nodes. CT chest/abd/pelvis was negative for overt mass or lymphadenopathy. He is s/p tracheostomy and biopsy. Pathology result is pending. Hematology/oncology and radiation/oncology evaluations were requested. He is on albuterol, antibiotics and tapering iv steroids. Hyponatremia has improved since admission. Nephrology is following. Cardiology is following for indeterminate troponins. Echocardiogram was reviewed. Patient is on losartan and hydralazine prn for hypertension. Will replete and repeat lytes. Casey Hinojosa MD Hospitalist.
[2017-11-08] MEDS: Potassium Chloride 20 MEQ in Dextrose 5%/0.45% NS 1,000 ML IV SCH (10:21)
--- NOTE | 2017-11-08 12:55 | CP.PCM.CON ---
History of Present Illness - History of Present Illness History of Present Illness: Mr Whitman is a 52 year old male with a locally advanced supraglottic mass. He initially came to [facility] in September 2017 with worsening shortness of breath . He had no improvement with nebulizer treatment. They admitted him for one day with a COPD exacerbation and treated him with antibiotics and steroids. He then came back to [facility] on November 01 with worsening shortness of breath and respiratory failure. He was also very lethargic. He has been having hoarseness , dysphagia and odynophagia since May 2017. He was emergently intubated in the ED and was found to have a laryngeal mass. A CT of the neck on November 02, 2017 revealed a soft tissue prominence of the supraglottic region on the left with extension to the left hypopharynx. He had a CT of the head which was negative. He then had a CT of the neck on November 05, 2017 which revealed a 2.7 x 2 x 4.5cm soft tissue mass on the left AE fold with extension to the paraglottic space and invading the thyroid cartilage with destruction of the posterior thyroid cartilage. There was extension to the posterior left hypophyarnx. There were multiple left cervical nodes at level I, II, III, IV and V. The largest node measured 2.5m. He had a direct laryngoscopy with Dr Okeefe which revealed a friable mass in the left pyriform sinus, left false and true cord. A biopsy was obtained on November 06, 2017 which is currently pending. He had a tracheostomy placed due to airway compromise. He is scheduled to have a PEG on Saturday. Review of Systems - Constitutional Constitutional: Weight Loss - EENT Nose/Mouth/Throat: Change in Voice, Dysphagia, Hoarsness, Odynophagia, Neck Mass - Respiratory Respiratory: Cough, Dyspnea Past Patient History - Infectious Disease Hx of Infectious Diseases: None - Past Medical History & Family History Past Medical History?: Yes - Past Social History Smoking Status: Heavy Smoker > 10 Cigarettes Daily Alcohol: > 2 Drinks/Day Home Situation {Lives}: With Family - CARDIAC Hx Cardiac Disorders: No Hx Pacemaker: No - PULMONARY Hx Chronic Obstructive Pulmonary Disease (COPD): Yes Other/Comment: SMOKE 1 1/2 PACK A DAY, USES INHALER BUT DENIES HAVING ASTHMA ANY RESP. PROBLEM - NEUROLOGICAL Hx Neurological Disorder: No Hx Paralysis: No - HEENT Hx HEENT Problems: Yes (USES GLASSES FOR READING) - ENDOCRINE/METABOLIC Hx Endocrine Disorders: No - HEMATOLOGICAL/ONCOLOGICAL Hx Blood Transfusions: No Hx Blood Transfusion Reaction: No - INTEGUMENTARY Hx Dermatological Problems: No - MUSCULOSKELETAL/RHEUMATOLOGICAL Hx Falls: No - GASTROINTESTINAL Hx Gastrointestinal Disorders: No - GENITOURINARY/GYNECOLOGICAL Hx Genitourinary Disorders: Yes Other/Comment: HX OF FREQUENT URINATION ON MEDS - PSYCHIATRIC Hx Substance Use: No - SURGICAL HISTORY Hx Surgeries: No - ANESTHESIA Hx Anesthesia Reactions: No Hx Malignant Hyperthermia: No Meds Allergies/Adverse Reactions: Allergies Allergy/AdvReac Type Severity Reaction Status Date / Time No Known Allergies Allergy Verified 11/02/17 19:00 - Medications Medications: Current Medications Albuterol Sulfate (Albuterol 0.083% Inhal Snow (2.5 Mg/3 Ml) Ud) 2.5 mg IH Q2H PRN PRN Reason: Shortness of Breath Albuterol Sulfate (Albuterol 0.083% Inhal Snow (2.5 Mg/3 Ml) Ud) 2.5 mg INH [id number] [facility] Clonidine HCl (Catapres) 0.1 mg NG BID [facility] Last Admin: 11/07/17 21:10 Dose: Not Given Clonidine HCl (Catapres-Tts2 0.2 Mg/24 Hr) 1 patch TD Q7D@1000 [facility] Last Admin: 11/07/17 13:19 Dose: 1 patch Heparin Sodium (Porcine) (Heparin) 5,000 units SC Q12 [facility] PRN Reason: Protocol Last Admin: 11/06/17 09:38 Dose: Not Given Hydralazine HCl (Apresoline) 10 mg IVP Q6 PRN PRN Reason: Systolic Blood Pressure >180 Last Admin: 11/06/17 12:04 Dose: 10 mg Azithromycin 250 mg/ Sodium (Chloride) 250 mls @ 167 mls/hr IVPB DAILY [facility] PRN Reason: Protocol Last Admin: 11/08/17 10:09 Dose: 167 mls/hr Ceftriaxone Sodium (Rocephin 1 Gram Ivpb) 1 gm in 100 mls @ 100 mls/hr IVPB DAILY@2200 [facility] PRN Reason: Protocol Last Admin: 11/07/17 21:57 Dose: 100 mls/hr Potassium Chloride 20 meq/ (Dextrose/Sodium Chloride) 1,010 mls @ 60 mls/hr IV .[id number] [facility] Last Admin: 11/08/17 10:21 Dose: 60 mls/hr Lactic Acid (Lac-Hydrin 12% Lotion (225 G)) 1 gm EXT Q12 [facility] Last Admin: 11/08/17 09:24 Dose: 1 applic Lorazepam (Ativan) 0.5 mg IVP Q6H PRN; Protocol PRN Reason: Anxiety Last Admin: 11/07/17 22:00 Dose: 0.5 mg Losartan Potassium (Cozaar) 50 mg NG DAILY [facility] Last Admin: 11/07/17 10:40 Dose: Not Given Methylprednisolone (Solu-Medrol) 40 mg IVP DAILY [facility] Last Admin: 11/08/17 09:25 Dose: 40 mg Nicotine (Nicoderm Cq) 1 patch TD DAILY [facility] Last Admin: 11/08/17 09:24 Dose: 1 patch Pantoprazole Sodium (Protonix Inj) 40 mg IVP DAILY [facility] Last Admin: 11/08/17 09:25 Dose: 40 mg Physical Exam - Eye Exam Eye Exam: EOMI - ENT Exam ENT Exam: Mucous Membranes Moist - Neck Exam Additional comments: s/p trach; left cervical adenopathy II-V - Respiratory Exam Respiratory Exam: Clear to Auscultation Bilateral - Cardiovascular Exam Cardiovascular Exam: REGULAR RHYTHM - GI/Abdominal Exam GI & Abdominal Exam: Normal Bowel Sounds - Neurological Exam Neurological exam: CN II-XII Intact, Oriented x3 Results - Vital Signs Recent Vital Signs: Last Vital Signs Temp 98.9 F 11/08/17 11:22 Pulse 80 11/08/17 10:00 Resp 33 H 11/08/17 07:00 BP 140/70 11/08/17 06:01 Pulse Ox 94 L 11/08/17 07:00 - Labs Result Diagrams: 11/08/17 06:00 11/08/17 06:00 Labs: Laboratory Results - last 24 hr 11/08/17 11/08/17 06:00 06:00 WBC 14.3 H RBC 4.32 Hgb 12.7 L Hct 38.5 L MCV 89.1 MCH 29.4 MCHC 33.0 RDW 13.2 Plt Count 295 MPV 9.8 Gran % 81.5 H Lymph % (Auto) 9.6 L [place] % (Auto) 8.3 H Eos % (Auto) 0.5 L Baso % (Auto) 0.1 Gran # 11.63 H Lymph # (Auto) 1.4 Stan[place] # (Auto) 1.2 H Eos # (Auto) 0.1 Baso # (Auto) 0.01 Sodium 140 Potassium 3.4 L Chloride 100 Carbon Dioxide 30 Anion Gap 13 BUN 14 Creatinine 0.7 L Est GFR ( Amer) > 60 Est GFR (Non-Af Amer) > 60 Random Glucose 121 H Calcium 9.5 Total Bilirubin 0.8 AST 27 ALT 37 Alkaline Phosphatase 72 Total Protein 6.1 Albumin 3.2 Globulin 2.9 Albumin/Globulin Ratio 1.1 Assessment & Plan - Assessment and Plan (Free Text) Assessment: Mr Whitman is a 52 year old male with a locally advanced supraglottic mass status post tracheostomy. The pathology is currently pending. He is scheduled to have a PEG tube on Saturday Based on his thyroid cartilage invasion, he is not an optimal larynx preservation candidate. Typically, if surgically feasible, he would get a laryngectomy first before radiation therapy. If he refuses or is not a surgical candidate, then we would treat with concurrent chemoradiation. Given his poor dentition, he will need dental evaluation and clearance. He will also benefit from a PET scan for staging purposes. We spoke to the patient and family. They would like to await the pathology first before making any decision about treatment
--- NOTE | 2017-11-08 16:30 | PN ---
DATE: 11/08/2017 SUBJECTIVE: The patient is seen lying in bed. He is awake. He is alert. He is responsive. PHYSICAL EXAMINATION: GENERAL: Thinly built middle-aged male, lying in bed. VITAL SIGNS: Blood pressure 140/70, heart rate 80, respiratory rate 18, temperature 98.9. HEENT: Normocephalic, atraumatic, positive pallor. NECK: Supple, no JVD. LUNGS: Bilateral equal air entry, bilateral equal expansion, no rales. CARDIAC: S1, S2, regular rate and rhythm, no murmur, no rub. ABDOMEN: Soft, nondistended, nontender, bowel sounds present. EXTREMITIES: No lower extremity edema. INTAKE AND OUTPUT: Not charted. LABORATORY DATA: WBC 14, hemoglobin 12.7, hematocrit 38.5, platelets 295. Sodium 140, potassium 3.4, chloride 100, CO2 of 30, BUN 14, creatinine 0.7, glucose 121. MEDICATIONS: List reviewed. ASSESSMENT: 1. Hyponatremia, depletional, resolved. 2. Hypokalemia. 3. Respiratory failure. 4. Status post tracheostomy. 5. Supraglottic mass, status post biopsy. PLAN: 1. Replace potassium. 2. Add potassium to IV fluids. 3. We will discontinue followup. Natasha Duncan MD
--- NOTE | 2017-11-08 19:22 | CON ---
DATE: ONCOLOGY CONSULTATION HISTORY OF PRESENT ILLNESS: This is a 52-year-old man, who seems to have a left-sided supraglottic cancer that was causing him to become short of breath and causing severe loss of weight, for which he underwent intubation and tracheostomy yesterday. PHYSICAL EXAMINATION: SKIN: No petechiae. No bruises. HEENT: Temporal wasting noted. NODES: Nonpalpable in axillary, cervical, supraclavicular, or inguinal regions. Although, in the left neck, there is a swelling on the left side, I am not sure if it is lymph node. LUNGS: At present, are clear. He is able to sit up and do his puzzle. HEART: S1 and S2. ABDOMEN: Shows no liver, no spleen, no tenderness. EXTREMITIES: No edema. CENTRAL NERVOUS SYSTEMS: No focal findings. LABORATORY DATA: The CAT scan shows a supraglottic mass and he underwent, I believe, a biopsy. I do not see a pathology report as of yet. The CAT scan yesterday shows no clear metastatic cancer to his lungs, to his liver, or to his lymph nodes. At present, I am going to ask Dr. Arndt, Radiation Therapy, to see the patient and I told the patient she will be seeing him. We would like to give him radiation therapy with either 5-FU or [place] weekly or Erbitux regimen weekly as an outpatient. This is all outpatient therapy ultimately, but for now, he is going to need a trach for that whole treatment. The trach will have to be through the six weeks of radiation therapy as well as probably for a month or so after the radiation therapy. Furthermore, the patient will need a dental evaluation. He may need prophylactic removal of some teeth before the radiation therapy, but Dr. Arndt will evaluate him for that in terms of whether the teeth are going to be within the field of radiation therapy. Joaquin Pan MD
[2017-11-08] MEDS: cefTRIAXone 1 gm 1 GM/100 ML BAG IVPB SCH (22:43)
[2017-11-09] MEDS: Albuterol 0.083% Inhal Sol (2.5 mg/3 mL) UD INH SCH ×4 (01:54→20:45)
[2017-11-09] MEDS: Potassium Chloride 20 MEQ in Dextrose 5%/0.45% NS 1,000 ML IV SCH ×3 (06:35→21:34)
[2017-11-09 08:35] LABS: BASO # 0.01 K/mm3 (0.0-2.0); BASO % 0.1 % (0.0-3.0); EOS # 0.1 (0.0-0.7); EOS % 1.1 % (1.5-5.0); GRAN # 9.85 (1.4-6.5); GRAN % 80.5 % (50.0-68.0); HEMOGLOBIN 11.9 g/dL (14.0-18.0); LYMPH # 1.3 (1.2-3.4); LYMPH % 10.2 % (22.0-35.0); MEAN CELL VOLUME 89.8 fl (80.0-105.0); MEAN CORPUSCULAR HEMOGLOBIN 29.6 pg (25.0-35.0); MEAN PLATELET VOLUME 9.4 fl (7.0-11.0); MONO % 8.1 % (1.0-6.0); RBC 4.02 10^6/uL (3.5-6.1); RED CELL DISTRIBUTION WIDTH 13.2 % (11.5-14.5); WHITE BLOOD COUNT 12.2 10^3/ul (4.5-11.0)
[2017-11-09 09:01] LABS: ALB/GLOB RATIO 1.2 (1.1-1.8); ALBUMIN 3.1 g/dL (3.0-4.8); ALT/SGPT 38 U/L (7-56); AST/SGOT 18 U/L (17-59); BLOOD UREA NITROGEN 15 mg/dL (7-21); CALCIUM 9.6 mg/dL (8.4-10.5); GFR AFRICAN-AMERICAN > 60; GFR NON-AFRICAN AMERICAN > 60
[2017-11-09] MEDS: Ammonium Lactate 12% Lotion (225 g) EXT SCH ×2 (10:12→21:33)
[2017-11-09] MEDS: MethylPREDNISolone 40 mg Vial IVP SCH (10:13)
[2017-11-09] MEDS: Azithromycin 250 MG in Sodium Chloride 0.9% 250 ML IVPB SCH (10:26)
--- NOTE | 2017-11-09 15:16 | CP.PCM.PN ---
<Stanton Fernandez - Last Filed: 11/09/17 15:13> Subjective - Date & Time of Evaluation Date of Evaluation: 11/09/17 Time of Evaluation: 15:14 - Subjective Subjective: Medicine Progress Note: Patient seen and assessed at bedside. No acute events noted overnight by patient or nursing staff. Patient offers no other complaints at this time including fever, chills, headache, chest pain, SOB, abdominal pain, N/V/D/C, urinary symptoms, or any skin changes. Objective - Vital Signs/Intake and Output Vital Signs (last 24 hours): Temp Pulse Resp BP Pulse Ox 97.8 F 99 H 20 140/78 97 11/09/17 12:00 11/09/17 12:00 11/09/17 12:00 11/09/17 12:00 11/09/17 05:36 Intake and Output: 11/09/17 11/09/17 06:59 18:59 Intake Total 0 Output Total 550 Balance -550 - Medications Medications: Current Medications Albuterol Sulfate (Albuterol 0.083% Inhal Snow (2.5 Mg/3 Ml) Ud) 2.5 mg IH Q2H PRN PRN Reason: Shortness of Breath Albuterol Sulfate (Albuterol 0.083% Inhal Snow (2.5 Mg/3 Ml) Ud) 2.5 mg INH [id number] COUNTS INCLUDE 234 BEDS AT THE [facility] Last Admin: 11/09/17 08:24 Dose: 2.5 mg Clonidine HCl (Catapres) 0.1 mg NG BID COUNTS INCLUDE 234 BEDS AT THE [facility] Last Admin: 11/07/17 21:10 Dose: Not Given Clonidine HCl (Catapres-Tts2 0.2 Mg/24 Hr) 1 patch TD Q7D@1000 COUNTS INCLUDE 234 BEDS AT THE [facility] Last Admin: 11/07/17 13:19 Dose: 1 patch Heparin Sodium (Porcine) (Heparin) 5,000 units SC Q12 [facility] PRN Reason: Protocol Last Admin: 11/06/17 09:38 Dose: Not Given Hydralazine HCl (Apresoline) 10 mg IVP Q6 PRN PRN Reason: Systolic Blood Pressure >180 Last Admin: 11/06/17 12:04 Dose: 10 mg Potassium Chloride 20 meq/ (Dextrose/Sodium Chloride) 1,010 mls @ 60 mls/hr IV .[id number] COUNTS INCLUDE 234 BEDS AT THE [facility] Last Admin: 11/09/17 06:35 Dose: 60 mls/hr Lactic Acid (Lac-Hydrin 12% Lotion (225 G)) 1 gm EXT Q12 COUNTS INCLUDE 234 BEDS AT THE [facility] Last Admin: 11/09/17 10:12 Dose: 1 applic Lorazepam (Ativan) 0.5 mg IVP Q6H PRN; Protocol PRN Reason: Anxiety Last Admin: 11/07/17 22:00 Dose: 0.5 mg Losartan Potassium (Cozaar) 50 mg NG DAILY COUNTS INCLUDE 234 BEDS AT THE [facility] Last Admin: 11/07/17 10:40 Dose: Not Given Methylprednisolone (Solu-Medrol) 40 mg IVP DAILY COUNTS INCLUDE 234 BEDS AT THE [facility] Last Admin: 11/09/17 10:13 Dose: 40 mg Nicotine (Nicoderm Cq) 1 patch TD DAILY COUNTS INCLUDE 234 BEDS AT THE [facility] Last Admin: 11/09/17 10:13 Dose: 1 patch Pantoprazole Sodium (Protonix Inj) 40 mg IVP DAILY COUNTS INCLUDE 234 BEDS AT THE [facility] Last Admin: 11/09/17 10:13 Dose: 40 mg - Labs Labs: 11/09/17 08:30 11/09/17 08:30 PT 14.2 SECONDS (9.4-12.5) H 11/02/17 19:35 INR 1.24 (0.93-1.08) H 11/02/17 19:35 APTT 24.6 Seconds (25.1-36.5) L 11/05/17 07:00 - Constitutional Appears: Non-toxic, No Acute Distress - Head Exam Head Exam: ATRAUMATIC, NORMOCEPHALIC - Eye Exam Eye Exam: EOMI, Normal appearance, PERRL - ENT Exam ENT Exam: Mucous Membranes Moist - Neck Exam Neck Exam: Full ROM Additional comments: Trach in place with no signs of clinical infection - Respiratory Exam Respiratory Exam: Clear to Ausculation Bilateral, NORMAL BREATHING PATTERN - Cardiovascular Exam Cardiovascular Exam: REGULAR RHYTHM, +S1, +S2. absent: Murmur - GI/Abdominal Exam GI & Abdominal Exam: Soft, Normal Bowel Sounds. absent: Tenderness - Extremities Exam Extremities Exam: Full ROM, Normal Capillary Refill, Normal Inspection. absent : Calf Tenderness - Neurological Exam Neurological Exam: Alert, Awake - Psychiatric Exam Psychiatric exam: Normal Affect, Normal Mood - Skin Skin Exam: Dry, Intact, Normal Color, Warm Assessment and Plan - Assessment and Plan (Free Text) Assessment: 52 year old male with a past medical history significant for asthma, COPD, tobacco abuse, and alcohol abuse who was admitted for hypercapneic respiratory failure, hyponatremia, leukocytosis, and indeterminate troponins. Patient was noted to have a laryngeal mass that was biopsied and determined to be SCC. Patient is s/p trach awaiting PEG placement on Saturday 11/11. Patient and family still deciding course of action in regards to treatment approach. Plan: 1. Laryngeal Squamous Cell Carcinoma -CT Neck/Soft Tissue showed 2.7 x 2.0 x 4.5 cm left supraglottic soft tissue mass extending involving the left aryepiglottic fold, paraglottic fat, left thyroid cartilage with destruction of the posterior cartilage and extension beyond the margin of the thyroid cartilage as well as posterior extension into the hypopharynx with metastatic enlarged left level 1B to level 5 lymph nodes -CT Chest/Abdomen/Pelvis showed no overt masses or gross evidence of metastatic disease -Biopsy of laryngeal mass demostrating SCC -S/P Trach and awaiting open G-tube placement on Saturday 11/11 -Continue IV Solu-Medrol 40mg Daily -Continue Duonebs Q4 scheduled and Q2 PRN -Continue BiPAP PRN -NPO Diet -HOB elevated -Aspiration precautions -Radiation Oncology, ENT, Heme/Onc and Surgery consulted, all recommendations appreciated 2. Hyponatremia -Resolved -D5/Half NS with KCl at 60mls/hr -Nephro consulted, all recommendations appreciated 3. HTN -Continue Clonidine TD and Hydralazine 10mg IVP Q6 PRN 4. Iron Deficiency Anemia -Stable -Likely component of ACD in addition to EDDA -S/P five day course of Venofer -Continue to monitor with daily CBC's 5. History of Tobacco Abuse -Nicoderm CQ 21mg/day 6. History of Alcohol Withdrawal -Continue Ativan 0.5mg IVP Q6 PRN 7. History of Dry Skin -Continue Lac-Hydrin 12% Lotion -Continue Wound Care GI Prophylaxis: Protonix DVT Prophylaxis: Heparin Patient seen and case discussed with attending, Dr. Hinojosa. <Casey Hinojosa - Last Filed: 11/09/17 15:43> Objective - Vital Signs/Intake and Output Vital Signs (last 24 hours): Temp Pulse Resp BP Pulse Ox 97.8 F 99 H 20 140/78 97 11/09/17 12:00 11/09/17 12:00 11/09/17 12:00 11/09/17 12:00 11/09/17 05:36 Intake and Output: 11/09/17 11/09/17 06:59 18:59 Intake Total 0 Output Total 550 Balance -550 - Medications Medications: Current Medications Albuterol Sulfate (Albuterol 0.083% Inhal Snow (2.5 Mg/3 Ml) Ud) 2.5 mg IH Q2H PRN PRN Reason: Shortness of Breath Albuterol Sulfate (Albuterol 0.083% Inhal Snow (2.5 Mg/3 Ml) Ud) 2.5 mg INH [id number] COUNTS INCLUDE 234 BEDS AT THE [facility] Last Admin: 11/09/17 08:24 Dose: 2.5 mg Clonidine HCl (Catapres) 0.1 mg NG BID COUNTS INCLUDE 234 BEDS AT THE [facility] Last Admin: 11/07/17 21:10 Dose: Not Given Clonidine HCl (Catapres-Tts2 0.2 Mg/24 Hr) 1 patch TD Q7D@1000 COUNTS INCLUDE 234 BEDS AT THE [facility] Last Admin: 11/07/17 13:19 Dose: 1 patch Heparin Sodium (Porcine) (Heparin) 5,000 units SC Q12 [facility] PRN Reason: Protocol Last Admin: 11/06/17 09:38 Dose: Not Given Hydralazine HCl (Apresoline) 10 mg IVP Q6 PRN PRN Reason: Systolic Blood Pressure >180 Last Admin: 11/06/17 12:04 Dose: 10 mg Potassium Chloride 20 meq/ (Dextrose/Sodium Chloride) 1,010 mls @ 60 mls/hr IV .[id number] COUNTS INCLUDE 234 BEDS AT THE [facility] Last Admin: 11/09/17 06:35 Dose: 60 mls/hr Lactic Acid (Lac-Hydrin 12% Lotion (225 G)) 1 gm EXT Q12 COUNTS INCLUDE 234 BEDS AT THE [facility] Last Admin: 11/09/17 10:12 Dose: 1 applic Lorazepam (Ativan) 0.5 mg IVP Q6H PRN; Protocol PRN Reason: Anxiety Last Admin: 11/07/17 22:00 Dose: 0.5 mg Losartan Potassium (Cozaar) 50 mg NG DAILY COUNTS INCLUDE 234 BEDS AT THE [facility] Last Admin: 11/07/17 10:40 Dose: Not Given Methylprednisolone (Solu-Medrol) 40 mg IVP DAILY COUNTS INCLUDE 234 BEDS AT THE [facility] Last Admin: 11/09/17 10:13 Dose: 40 mg Nicotine (Nicoderm Cq) 1 patch TD DAILY COUNTS INCLUDE 234 BEDS AT THE [facility] Last Admin: 11/09/17 10:13 Dose: 1 patch Pantoprazole Sodium (Protonix Inj) 40 mg IVP DAILY [facility] Last Admin: 11/09/17 10:13 Dose: 40 mg - Labs Labs: 11/09/17 08:30 11/09/17 08:30 PT 14.2 SECONDS (9.4-12.5) H 11/02/17 19:35 INR 1.24 (0.93-1.08) H 11/02/17 19:35 APTT 24.6 Seconds (25.1-36.5) L 11/05/17 07:00 Attending/Attestation - Attestation I have personally seen and examined this patient.: Yes I have fully participated in the care of the patient.: Yes I have reviewed all pertinent clinical information, including history, physical exam and plan: Yes Notes (Text): 11/09/17 15:41 52 year old male with past medical history of COPD and alcohol abuse who presented with hypercapnic respiratory failure s/p intubation. CT neck showed large supraglottic soft tissue mass with metastatic lymph nodes. CT chest/abd/pelvis was negative for overt mass or lymphadenopathy. He is s/p tracheostomy and biopsy. Pathology result confirms squamous cell carcinoma. Hematology/oncology and radiation/oncology evaluations were appreciated. He is on albuterol and tapering iv steroids. He has completed iv antibiotics. Hyponatremia has improved since admission. Cardiology is following for indeterminate troponins. Echocardiogram was reviewed. Patient is on losartan and hydralazine prn for hypertension. Plan for PEG on Saturday. Casey Hinojosa MD Hospitalist.
[2017-11-09] MEDS ORDERED: DiphenhydrAMINE 50 mg/ml Inj IVP STA (21:48)
[2017-11-10 06:12] LABS: BASO # 0.01 K/mm3 (0.0-2.0); BASO % 0.1 % (0.0-3.0); EOS # 0.2 (0.0-0.7); EOS % 1.4 % (1.5-5.0); GRAN # 8.78 (1.4-6.5); GRAN % 77.5 % (50.0-68.0); HEMOGLOBIN 12.2 g/dL (14.0-18.0); LYMPH # 1.5 (1.2-3.4); LYMPH % 13.1 % (22.0-35.0); MEAN CELL VOLUME 89.7 fl (80.0-105.0); MEAN CORPUSCULAR HEMOGLOBIN 29.3 pg (25.0-35.0); MEAN CORPUSCULAR HGB CONC 32.7 g/dl (31.0-37.0); MEAN PLATELET VOLUME 9.4 fl (7.0-11.0); MONO # 0.9 (0.1-0.6); MONO % 7.9 % (1.0-6.0); RBC 4.16 10^6/uL (3.5-6.1); RED CELL DISTRIBUTION WIDTH 12.9 % (11.5-14.5); WHITE BLOOD COUNT 11.3 10^3/ul (4.5-11.0)
[2017-11-10 06:32] LABS: ALB/GLOB RATIO 1.1 (1.1-1.8); ALBUMIN 3.4 g/dL (3.0-4.8); ALT/SGPT 35 U/L (7-56); AST/SGOT 26 U/L (17-59); BLOOD UREA NITROGEN 14 mg/dL (7-21); CALCIUM 9.6 mg/dL (8.4-10.5); GFR AFRICAN-AMERICAN > 60; GFR NON-AFRICAN AMERICAN > 60
[2017-11-10] MEDS: Albuterol 0.083% Inhal Sol (2.5 mg/3 mL) UD INH SCH ×3 (07:26→20:24)
[2017-11-10] MEDS ORDERED: MethylPREDNISolone 40 mg Vial IVP SCH (10:00)
[2017-11-10] MEDS: Ammonium Lactate 12% Lotion (225 g) EXT SCH ×2 (10:11→21:13)
[2017-11-10] MEDS: Potassium Chloride 20 MEQ in Dextrose 5%/0.45% NS 1,000 ML IV SCH ×2 (11:55→16:38)
--- NOTE | 2017-11-10 13:36 | CP.PCM.PN ---
<Stanton Fernandez - Last Filed: 11/10/17 17:50> Subjective - Date & Time of Evaluation Date of Evaluation: 11/10/17 Time of Evaluation: 13:31 - Subjective Subjective: Medicine Progress Note: Patient seen and assessed at bedside. No acute events noted overnight by patient or nursing staff. Patient is aware of plans for open g-tube placement tomorrow and has spoken to surgery team regarding questions/concerns. Patient offers no complaints at this time including fever, chills, headache, chest pain , SOB, abdominal pain, N/V/D/C, urinary symptoms, or any skin changes. Objective - Vital Signs/Intake and Output Vital Signs (last 24 hours): Temp Pulse Resp BP Pulse Ox 98 F 80 20 99/51 L 97 11/10/17 12:00 11/10/17 12:00 11/10/17 12:00 11/10/17 12:00 11/10/17 05:59 Intake and Output: 11/10/17 11/10/17 06:59 18:59 Intake Total 720 Output Total 400 Balance 320 - Medications Medications: Current Medications Albuterol Sulfate (Albuterol 0.083% Inhal Snow (2.5 Mg/3 Ml) Ud) 2.5 mg IH Q2H PRN PRN Reason: Shortness of Breath Albuterol Sulfate (Albuterol 0.083% Inhal Snow (2.5 Mg/3 Ml) Ud) 2.5 mg INH [id number] [facility] Last Admin: 11/10/17 07:26 Dose: 2.5 mg Clonidine HCl (Catapres) 0.1 mg NG BID [facility] Last Admin: 11/07/17 21:10 Dose: Not Given Clonidine HCl (Catapres-Tts2 0.2 Mg/24 Hr) 1 patch TD Q7D@1000 [facility] Last Admin: 11/07/17 13:19 Dose: 1 patch Heparin Sodium (Porcine) (Heparin) 5,000 units SC Q12 [facility] PRN Reason: Protocol Last Admin: 11/06/17 09:38 Dose: Not Given Hydralazine HCl (Apresoline) 10 mg IVP Q6 PRN PRN Reason: Systolic Blood Pressure >180 Last Admin: 11/06/17 12:04 Dose: 10 mg Potassium Chloride 20 meq/ (Dextrose/Sodium Chloride) 1,010 mls @ 60 mls/hr IV .[id number] [facility] Last Admin: 11/10/17 11:55 Dose: Not Given Lactic Acid (Lac-Hydrin 12% Lotion (225 G)) 1 gm EXT Q12 [facility] Last Admin: 11/10/17 10:11 Dose: 1 applic Lorazepam (Ativan) 0.5 mg IVP Q6H PRN; Protocol PRN Reason: Anxiety Last Admin: 11/07/17 22:00 Dose: 0.5 mg Losartan Potassium (Cozaar) 50 mg NG DAILY [facility] Last Admin: 11/07/17 10:40 Dose: Not Given Methylprednisolone (Solu-Medrol) 30 mg IVP DAILY [facility] Last Admin: 11/10/17 10:10 Dose: 30 mg Nicotine (Nicoderm Cq) 1 patch TD DAILY [facility] Last Admin: 11/10/17 10:11 Dose: 1 patch Pantoprazole Sodium (Protonix Inj) 40 mg IVP DAILY [facility] Last Admin: 11/10/17 10:10 Dose: 40 mg - Labs Labs: 11/10/17 05:40 11/10/17 05:40 PT 14.2 SECONDS (9.4-12.5) H 11/02/17 19:35 INR 1.24 (0.93-1.08) H 11/02/17 19:35 APTT 24.6 Seconds (25.1-36.5) L 11/05/17 07:00 - Constitutional Appears: Non-toxic, No Acute Distress - Head Exam Head Exam: ATRAUMATIC, NORMOCEPHALIC - Eye Exam Eye Exam: EOMI, Normal appearance, PERRL - ENT Exam ENT Exam: Mucous Membranes Moist, Normal Exam - Neck Exam Neck Exam: Full ROM. absent: Lymphadenopathy Additional comments: Trach in place with no signs of clinical infection - Respiratory Exam Respiratory Exam: Clear to Ausculation Bilateral, NORMAL BREATHING PATTERN. absent: Rales, Rhonchi, Wheezes - Cardiovascular Exam Cardiovascular Exam: REGULAR RHYTHM, RRR, +S1, +S2 - GI/Abdominal Exam GI & Abdominal Exam: Soft, Normal Bowel Sounds. absent: Tenderness - Extremities Exam Extremities Exam: Full ROM, Normal Capillary Refill. absent: Calf Tenderness, Joint Swelling, Pedal Edema, Tenderness - Neurological Exam Neurological Exam: Alert, Awake, CN II-XII Intact, Oriented x3 - Psychiatric Exam Psychiatric exam: Normal Affect, Normal Mood - Skin Skin Exam: Dry, Intact, Normal Color, Warm Assessment and Plan - Assessment and Plan (Free Text) Assessment: 52 year old male with a past medical history significant for asthma, COPD, tobacco abuse, and alcohol abuse who was admitted for hypercapneic respiratory failure, hyponatremia, leukocytosis, and indeterminate troponins. Patient was noted to have a laryngeal mass that was biopsied and determined to be SCC. Patient is s/p trach awaiting PEG placement on Saturday 11/11. Patient and family still deciding course of action in regards to treatment approach. Plan: 1. Laryngeal Squamous Cell Carcinoma -CT Neck/Soft Tissue showed 2.7 x 2.0 x 4.5 cm left supraglottic soft tissue mass extending involving the left aryepiglottic fold, paraglottic fat, left thyroid cartilage with destruction of the posterior cartilage and extension beyond the margin of the thyroid cartilage as well as posterior extension into the hypopharynx with metastatic enlarged left level 1B to level 5 lymph nodes -CT Chest/Abdomen/Pelvis showed no overt masses or gross evidence of metastatic disease -Biopsy of laryngeal mass demostrating SCC -S/P Trach and awaiting open G-tube placement on Saturday 11/11 -Tapered IV Solu-Medrol to 20mg Daily -Continue Duonebs Q4 scheduled and Q2 PRN -Continue BiPAP PRN -D5/Half NS with KCl at 60mls/hr until adequate PO/parenteral intake -NPO Diet -HOB elevated -Aspiration precautions -Radiation Oncology, ENT, Heme/Onc and Surgery consulted, all recommendations appreciated 2. Hyponatremia -Resolved -Nephro consulted, all recommendations appreciated 3. HTN -Continue Clonidine TD and Hydralazine 10mg IVP Q6 PRN -PO/NG medication on hold until route is established 4. Iron Deficiency Anemia -Stable -Likely component of ACD in addition to EDDA -S/P five day course of Venofer -Continue to monitor with daily CBC's 5. History of Tobacco Abuse -Nicoderm CQ 21mg/day 6. History of Anxiety -Continue Ativan 0.5mg IVP Q6 PRN 7. Xeroderma -Continue Lac-Hydrin 12% Lotion -Continue Wound Care GI Prophylaxis: Protonix DVT Prophylaxis: Heparin Patient seen and case discussed with attending, Dr. Hinojosa. <Ashish,Anwar A - Last Filed: 11/11/17 07:08> Objective - Vital Signs/Intake and Output Vital Signs (last 24 hours): Temp Pulse Resp BP Pulse Ox 97.2 F L 66 18 127/79 98 11/11/17 05:50 11/11/17 05:50 11/11/17 05:50 11/11/17 05:50 11/11/17 05:50 Intake and Output: 11/11/17 11/11/17 06:59 18:59 Intake Total 720 Output Total 550 Balance 170 - Medications Medications: Current Medications Albuterol Sulfate (Albuterol 0.083% Inhal Snow (2.5 Mg/3 Ml) Ud) 2.5 mg IH Q2H PRN PRN Reason: Shortness of Breath Albuterol Sulfate (Albuterol 0.083% Inhal Snow (2.5 Mg/3 Ml) Ud) 2.5 mg INH [id number] [facility] Last Admin: 11/11/17 03:00 Dose: Not Given Clonidine HCl (Catapres) 0.1 mg NG BID [facility] Last Admin: 11/07/17 21:10 Dose: Not Given Clonidine HCl (Catapres-Tts2 0.2 Mg/24 Hr) 1 patch TD Q7D@1000 [facility] Last Admin: 11/07/17 13:19 Dose: 1 patch Heparin Sodium (Porcine) (Heparin) 5,000 units SC Q12 [facility] PRN Reason: Protocol Last Admin: 11/06/17 09:38 Dose: Not Given Hydralazine HCl (Apresoline) 10 mg IVP Q6 PRN PRN Reason: Systolic Blood Pressure >180 Last Admin: 11/06/17 12:04 Dose: 10 mg Potassium Chloride 20 meq/ (Dextrose/Sodium Chloride) 1,010 mls @ 60 mls/hr IV .[id number] [facility] Last Admin: 11/10/17 16:38 Dose: 60 mls/hr Lactic Acid (Lac-Hydrin 12% Lotion (225 G)) 1 gm EXT Q12 [facility] Last Admin: 11/10/17 21:13 Dose: 1 applic Lorazepam (Ativan) 0.5 mg IVP Q6H PRN; Protocol PRN Reason: Anxiety Last Admin: 11/07/17 22:00 Dose: 0.5 mg Losartan Potassium (Cozaar) 50 mg NG DAILY [facility] Last Admin: 11/07/17 10:40 Dose: Not Given Methylprednisolone (Solu-Medrol) 20 mg IVP DAILY [facility] Nicotine (Nicoderm Cq) 1 patch TD DAILY [facility] Last Admin: 11/10/17 10:11 Dose: 1 patch Pantoprazole Sodium (Protonix Inj) 40 mg IVP DAILY [facility] Last Admin: 11/10/17 10:10 Dose: 40 mg - Labs Labs: 11/11/17 05:40 11/10/17 05:40 PT 16.8 SECONDS (9.4-12.5) H 11/11/17 05:40 INR 1.45 (0.93-1.08) H 11/11/17 05:40 APTT 25.2 Seconds (25.1-36.5) 11/11/17 05:40 Attending/Attestation - Attestation I have personally seen and examined this patient.: Yes I have fully participated in the care of the patient.: Yes I have reviewed all pertinent clinical information, including history, physical exam and plan: Yes Notes (Text): 11/10/17 52 year old male with past medical history of COPD and alcohol abuse who presented with hypercapnic respiratory failure s/p intubation. CT neck showed large supraglottic soft tissue mass with metastatic lymph nodes. CT chest/abd/pelvis was negative for overt mass or lymphadenopathy. He is s/p tracheostomy and biopsy. Pathology result confirms squamous cell carcinoma. Hematology/oncology and radiation/oncology evaluations were appreciated. He is on albuterol and tapering iv steroids. He has completed iv antibiotics. Hyponatremia has improved since admission. Cardiology is following for indeterminate troponins. Echocardiogram was reviewed. Patient is on losartan and hydralazine prn for hypertension. Plan for surgical PEG tomorrow. Casey Hinojosa MD Hospitalist.
--- NOTE | 2017-11-10 15:44 | CP.PCM.PCO ---
Physician Communication Note - Physician Communication Note Physician Communication Note: OR tomorrow G-tube, NPO @[place], hold heparin
[2017-11-11] MEDS: Albuterol 0.083% Inhal Sol (2.5 mg/3 mL) UD INH SCH ×5 (02:42→21:38)
[2017-11-11 06:20] LABS: EOS # 0.1 (0.0-0.7); EOS % 0.7 % (1.5-5.0); GRAN # 9.54 (1.4-6.5); GRAN % 79.3 % (50.0-68.0); LYMPH # 1.5 (1.2-3.4); LYMPH % 12.3 % (22.0-35.0); MEAN CELL VOLUME 89.2 fl (80.0-105.0); MEAN CORPUSCULAR HEMOGLOBIN 29.3 pg (25.0-35.0); MEAN CORPUSCULAR HGB CONC 32.9 g/dl (31.0-37.0); MEAN PLATELET VOLUME 9.6 fl (7.0-11.0); MONO # 0.9 (0.1-0.6); MONO % 7.7 % (1.0-6.0); RBC 4.09 10^6/uL (3.5-6.1)
[2017-11-11 06:28] LABS: INR 1.45 (0.93-1.08); PARTIAL THROMBOPLASTIN TIME 25.2 Seconds (25.1-36.5); PROTHROMBIN TIME 16.8 SECONDS (9.4-12.5)
[2017-11-11 07:24] LABS: ALB/GLOB RATIO 1.1 (1.1-1.8); ALBUMIN 3.2 g/dL (3.0-4.8); ALT/SGPT 39 U/L (7-56); AST/SGOT 35 U/L (17-59); BLOOD UREA NITROGEN 14 mg/dL (7-21); CALCIUM 9.7 mg/dL (8.4-10.5); GFR AFRICAN-AMERICAN > 60; GFR NON-AFRICAN AMERICAN > 60
[2017-11-11] MEDS: Potassium Chloride 20 MEQ in Dextrose 5%/0.45% NS 1,000 ML IV SCH ×3 (10:25→19:31)
[2017-11-11] MEDS: MethylPREDNISolone 40 mg Vial IVP SCH (10:25)
[2017-11-11] MEDS: Ammonium Lactate 12% Lotion (225 g) EXT SCH ×2 (10:29→22:30)
--- NOTE | 2017-11-11 13:30 | CP.PCM.PN ---
<Deidra Fox - Last Filed: 11/11/17 13:27> Subjective - Date & Time of Evaluation Date of Evaluation: 11/11/17 Time of Evaluation: 13:27 - Subjective Subjective: Deidra Fox, PGY1, Medicine Progress Note for Dr Hinojosa: Patient seen and examined at bedside. No acute events overnight. Denies fever, chills, nausea, vomiting, abdominal pain. Trach in place. Pt scheduled for G tube today at 3 PM. Objective - Vital Signs/Intake and Output Vital Signs (last 24 hours): Temp Pulse Resp BP Pulse Ox 97.2 F L 66 18 127/79 98 11/11/17 05:50 11/11/17 05:50 11/11/17 05:50 11/11/17 05:50 11/11/17 05:50 Intake and Output: 11/11/17 11/11/17 06:59 18:59 Intake Total 720 Output Total 550 Balance 170 - Medications Medications: Current Medications Albuterol Sulfate (Albuterol 0.083% Inhal Snow (2.5 Mg/3 Ml) Ud) 2.5 mg IH Q2H PRN PRN Reason: Shortness of Breath Albuterol Sulfate (Albuterol 0.083% Inhal Snow (2.5 Mg/3 Ml) Ud) 2.5 mg INH [id number] [facility] Last Admin: 11/11/17 07:59 Dose: 2.5 mg Clonidine HCl (Catapres) 0.1 mg NG BID [facility] Last Admin: 11/07/17 21:10 Dose: Not Given Clonidine HCl (Catapres-Tts2 0.2 Mg/24 Hr) 1 patch TD Q7D@1000 [facility] Last Admin: 11/07/17 13:19 Dose: 1 patch Heparin Sodium (Porcine) (Heparin) 5,000 units SC Q12 [facility] PRN Reason: Protocol Last Admin: 11/11/17 10:29 Dose: Not Given Hydralazine HCl (Apresoline) 10 mg IVP Q6 PRN PRN Reason: Systolic Blood Pressure >180 Last Admin: 11/06/17 12:04 Dose: 10 mg Potassium Chloride 20 meq/ (Dextrose/Sodium Chloride) 1,010 mls @ 60 mls/hr IV .[id number] [facility] Last Admin: 11/11/17 10:25 Dose: 60 mls/hr Lactic Acid (Lac-Hydrin 12% Lotion (225 G)) 1 gm EXT Q12 [facility] Last Admin: 11/11/17 10:29 Dose: 2 applic Lorazepam (Ativan) 0.5 mg IVP Q6H PRN; Protocol PRN Reason: Anxiety Last Admin: 11/07/17 22:00 Dose: 0.5 mg Losartan Potassium (Cozaar) 50 mg NG DAILY [facility] Last Admin: 11/07/17 10:40 Dose: Not Given Methylprednisolone (Solu-Medrol) 20 mg IVP DAILY [facility] Last Admin: 11/11/17 10:25 Dose: 20 mg Nicotine (Nicoderm Cq) 1 patch TD DAILY [facility] Last Admin: 11/11/17 10:25 Dose: 1 patch Pantoprazole Sodium (Protonix Inj) 40 mg IVP DAILY [facility] Last Admin: 11/11/17 10:25 Dose: 40 mg - Labs Labs: 11/11/17 05:40 11/11/17 05:40 PT 16.8 SECONDS (9.4-12.5) H 11/11/17 05:40 INR 1.45 (0.93-1.08) H 11/11/17 05:40 APTT 25.2 Seconds (25.1-36.5) 11/11/17 05:40 - Additional Findings Additional findings: - Constitutional Appears: Non-toxic, No Acute Distress - Head Exam Head Exam: ATRAUMATIC, NORMOCEPHALIC - Eye Exam Eye Exam: EOMI, PERRL. absent: Conjunctival injection, Nystagmus, Scleral icterus Pupil Exam: PERRL. absent: Fixed, Irregular, Miosis, Unequal - ENT Exam ENT Exam: Mucous Membranes Moist - Neck Exam Neck Exam: Full ROM - Respiratory Exam Respiratory Exam: Clear to Auscultation Bilaterally, NORMAL BREATHING PATTERN. absent: Accessory Muscle Use, Rales, Rhonchi, Wheezes, Respiratory Distress Additional comments: + trach in place. - Cardiovascular Exam Cardiovascular Exam: RRR, +S1, +S2. absent: Murmur - GI/Abdominal Exam GI & Abdominal Exam: Soft, Normal Bowel Sounds. absent: Distended, Rigid, Tenderness, Mass, Organomegaly, Rebound - Extremities Exam Extremities Exam: Full ROM, Normal Inspection. absent: Calf Tenderness, Pedal Edema - Back Exam Back Exam: NORMAL INSPECTION - Neurological Exam Neurological Exam: Alert, Awake, Oriented x3 - Psychiatric Exam Psychiatric exam: Normal Affect, Normal Mood - Skin Skin Exam: Dry, Normal Color, Warm Assessment and Plan - Assessment and Plan (Free Text) Assessment: 52 year old male with a past medical history significant for asthma, COPD, tobacco abuse, and alcohol abuse who was admitted for hypercapneic respiratory failure, hyponatremia, leukocytosis, and indeterminate troponins. Patient was noted to have a laryngeal mass that was biopsied and determined to be SCC. Patient is s/p trach awaiting PEG placement today. Patient and family still deciding course of action in regards to treatment approach, would like discussion with heme-onc/radiation oncologist. They would like to have a second opinion from a doctor at [facility]: 1. Laryngeal Squamous Cell Carcinoma -CT Neck/Soft Tissue showed 2.7 x 2.0 x 4.5 cm left supraglottic soft tissue mass extending involving the left aryepiglottic fold, paraglottic fat, left thyroid cartilage with destruction of the posterior cartilage and extension beyond the margin of the thyroid cartilage as well as posterior extension into the hypopharynx with metastatic enlarged left level 1B to level 5 lymph nodes -CT Chest/Abdomen/Pelvis showed no overt masses or gross evidence of metastatic disease -Biopsy of laryngeal mass demonstrating SCC -S/P Trach and awaiting open G-tube placement today -Tapered IV Solu-Medrol to 20mg Daily -Continue Duonebs Q4 scheduled and Q2 PRN -Continue BiPAP PRN -D5/Half NS with KCl at 60mls/hr until adequate PO/parenteral intake -NPO Diet -HOB elevated -Aspiration precautions -Radiation Oncology, ENT, Heme/Onc and Surgery consulted, all recommendations appreciated 2. Hyponatremia -Resolved -Nephro consulted, all recommendations appreciated 3. HTN -Continue Cozaar 50 mg daily, Clonidine TD and Hydralazine 10mg IVP Q6 PRN -PO/NG medication on hold until route is established 4. Iron Deficiency Anemia -Stable -Likely component of ACD in addition to EDDA -S/P five day course of Venofer -Continue to monitor with daily CBC's 5. History of Tobacco Abuse -Nicoderm CQ 21mg/day 6. History of Anxiety -Continue Ativan 0.5mg IVP Q6 PRN 7. Xeroderma -Continue Lac-Hydrin 12% Lotion -Continue Wound Care GI Prophylaxis: Protonix DVT Prophylaxis: Heparin Patient seen and case discussed with attending, Dr. Hinojosa. <Casey Hinojosa - Last Filed: 11/11/17 15:17> Objective - Vital Signs/Intake and Output Vital Signs (last 24 hours): Temp Pulse Resp BP Pulse Ox 98.3 F 75 20 91/60 L 98 11/11/17 12:00 11/11/17 14:00 11/11/17 12:00 11/11/17 12:00 11/11/17 05:50 Intake and Output: 11/11/17 11/11/17 06:59 18:59 Intake Total 720 Output Total 550 Balance 170 - Medications Medications: Current Medications Albuterol Sulfate (Albuterol 0.083% Inhal Snow (2.5 Mg/3 Ml) Ud) 2.5 mg IH Q2H PRN PRN Reason: Shortness of Breath Albuterol Sulfate (Albuterol 0.083% Inhal Snow (2.5 Mg/3 Ml) Ud) 2.5 mg INH [id number] [facility] Last Admin: 11/11/17 14:46 Dose: 2.5 mg Clonidine HCl (Catapres) 0.1 mg NG BID [facility] Last Admin: 11/07/17 21:10 Dose: Not Given Clonidine HCl (Catapres-Tts2 0.2 Mg/24 Hr) 1 patch TD Q7D@1000 [facility] Last Admin: 11/07/17 13:19 Dose: 1 patch Heparin Sodium (Porcine) (Heparin) 5,000 units SC Q12 [facility] PRN Reason: Protocol Last Admin: 11/11/17 10:29 Dose: Not Given Hydralazine HCl (Apresoline) 10 mg IVP Q6 PRN PRN Reason: Systolic Blood Pressure >180 Last Admin: 11/06/17 12:04 Dose: 10 mg Potassium Chloride 20 meq/ (Dextrose/Sodium Chloride) 1,010 mls @ 60 mls/hr IV .[id number] [facility] Last Admin: 11/11/17 10:25 Dose: 60 mls/hr Lactic Acid (Lac-Hydrin 12% Lotion (225 G)) 1 gm EXT Q12 [facility] Last Admin: 11/11/17 10:29 Dose: 2 applic Lorazepam (Ativan) 0.5 mg IVP Q6H PRN; Protocol PRN Reason: Anxiety Last Admin: 11/07/17 22:00 Dose: 0.5 mg Losartan Potassium (Cozaar) 50 mg NG DAILY [facility] Last Admin: 11/07/17 10:40 Dose: Not Given Methylprednisolone (Solu-Medrol) 20 mg IVP DAILY [facility] Last Admin: 11/11/17 10:25 Dose: 20 mg Nicotine (Nicoderm Cq) 1 patch TD DAILY [facility] Last Admin: 11/11/17 10:25 Dose: 1 patch Pantoprazole Sodium (Protonix Inj) 40 mg IVP DAILY [facility] Last Admin: 11/11/17 10:25 Dose: 40 mg - Labs Labs: 11/11/17 05:40 11/11/17 05:40 PT 16.8 SECONDS (9.4-12.5) H 11/11/17 05:40 INR 1.45 (0.93-1.08) H 11/11/17 05:40 APTT 25.2 Seconds (25.1-36.5) 11/11/17 05:40 Attending/Attestation - Attestation I have personally seen and examined this patient.: Yes I have fully participated in the care of the patient.: Yes I have reviewed all pertinent clinical information, including history, physical exam and plan: Yes Notes (Text): 11/11/17 15:13 52 year old male with past medical history of COPD and alcohol abuse who presented with hypercapnic respiratory failure s/p intubation. CT neck showed large supraglottic soft tissue mass with metastatic lymph nodes. CT chest/abd/pelvis was negative for overt mass or lymphadenopathy. He is s/p tracheostomy and biopsy with results confirming squamous cell carcinoma. Patient and family at bedside (brother and [id number]) are informed of diagnosis and questions were answered. Will request for hematology/oncology, radiation/oncology and ENT follow up to discuss treatment options with family. He is on albuterol and tapering iv steroids. He has completed iv antibiotics. Hyponatremia has improved since admission. Cardiology is following for indeterminate troponins. Echocardiogram was reviewed. Patient was on losartan and hydralazine prn for hypertension, currently on hold because blood pressure has been low normal yesterday and today. Plan is for surgical PEG today. Casey Hinojosa MD Hospitalist.
[2017-11-11] MEDS ORDERED: Propofol 10 mg/ml Inj (20 ML) ONE (15:45)
[2017-11-11] MEDS ORDERED: Rocuronium 10 mg/ml (5 ml) ONE (15:46)
[2017-11-11] MEDS ORDERED: Lidocaine 1% Inj (20ml) ONE (15:46)
[2017-11-11] MEDS ORDERED: CeFAZolin 1 gm in NS 100ml IVPB ONE (15:52)
[2017-11-11] MEDS ORDERED: Bupivacaine 0.5% Inj(30mL) ONE (15:53)
[2017-11-11] MEDS ORDERED: Bupivacaine 0.5% Inj(30mL) IJ ONE ×2 (16:29)
--- NOTE | 2017-11-11 17:08 | PCM.SURG1 ---
Surgeon's Initial Post Op Note - Surgeon's Notes Surgeon: Dr. Patel Police Aide: Dr. Granados PGY3, Dr. Tovar PGY2 Type of Anesthesia: General Tracheostomy, Local Pre-Operative Diagnosis: posterior pharyngeal mass Operative Findings: gastrostomy tube placed at 2cm at the skin Post-Operative Diagnosis: same Operation Performed: Donna gastrostomy Specimen/Specimens Removed: none Estimated Blood Loss: EBL {In ML}: 10 Blood Products Given: N/A Drains Used: No Drains Post-Op Condition: Good Date of Surgery/Procedure: 11/11/17 Time of Surgery/Procedure: 17:08
[2017-11-11] MEDS ORDERED: HYDROmorphone 0.5 mg/0.5 ml ISec IVP PRN (17:28)
[2017-11-11] MEDS ORDERED: Lactated Ringer's 1,000 ML IV SCH (17:30)
[2017-11-11] MEDS: Morphine 2 mg/ml ISec IVP PRN (21:27)
[2017-11-12] MEDS: Morphine 2 mg/ml ISec IVP PRN ×2 (02:58→09:46)
[2017-11-12] MEDS: Potassium Chloride 20 MEQ in Dextrose 5%/0.45% NS 1,000 ML IV SCH (03:27)
[2017-11-12] MEDS: Albuterol 0.083% Inhal Sol (2.5 mg/3 mL) UD INH SCH ×4 (04:00→19:55)
--- NOTE | 2017-11-12 04:54 | OP ---
PROCEDURE DATE: PREOPERATIVE DIAGNOSIS: Pharyngeal carcinoma. POSTOPERATIVE DIAGNOSIS: Pharyngeal carcinoma. OPERATION PERFORMED: Open gastrostomy. SURGEON: Delbert Patel MD ASSISTANTS: Dr. Granados and . DESCRIPTION OF PROCEDURE: In the operating room, patient was identified by name, name of procedure, laterality, my brian, the consent. After the successful timeout, the patient was given preoperative antibiotics and treated with chlorhexidine and drapes. After it had dried for three minutes, an upper midline incision was made through the skin and the subcutaneous tissues. The abdomen was explored that was unremarkable and the stomach was brought out with [place]. At a point of election gastrostomy tube was placed through the skin. Two purstrings with 2-0 Vicryl were placed on the stomach. These were punctured and the gastrostomy was opened and the tube was placed. It was inflated. Both purstrings were tied. A posterior 0 Vicryl, a superior inferior Vicryl were placed and the inferior one was placed. The incision was then closed with the functioning tube that was filled with 20 mL of saline. Incision closed with running #1 PDS above and below and tied in the middle with a buried knot, Vicryl, subcuticular stitches, 30 mL of 0.5 Marcaine. Patient was taken to recovery room in good condition after the sponge and needle counts were declared correct. Delbert Patel MD
[2017-11-12 06:52] LABS: BASO # 0.01 K/mm3 (0.0-2.0); GRAN # 21.08 (1.4-6.5); GRAN % 90.8 % (50.0-68.0); HEMOGLOBIN 12.4 g/dL (14.0-18.0); LYMPH # 0.9 (1.2-3.4); LYMPH % 3.7 % (22.0-35.0); MEAN CELL VOLUME 89.6 fl (80.0-105.0); MEAN CORPUSCULAR HEMOGLOBIN 29.4 pg (25.0-35.0); MEAN CORPUSCULAR HGB CONC 32.8 g/dl (31.0-37.0); MEAN PLATELET VOLUME 10.1 fl (7.0-11.0); MONO # 1.3 (0.1-0.6); MONO % 5.5 % (1.0-6.0); PLATELET COUNT 375 10^3/uL (120.0-450.0); RBC 4.22 10^6/uL (3.5-6.1); WHITE BLOOD COUNT 23.2 10^3/ul (4.5-11.0)
[2017-11-12 07:17] LABS: ALB/GLOB RATIO 1.1 (1.1-1.8); ALBUMIN 3.4 g/dL (3.0-4.8); ALT/SGPT 40 U/L (7-56); AST/SGOT 27 U/L (17-59); BLOOD UREA NITROGEN 12 mg/dL (7-21); CALCIUM 9.1 mg/dL (8.4-10.5); GFR AFRICAN-AMERICAN > 60; GFR NON-AFRICAN AMERICAN > 60
--- NOTE | 2017-11-12 07:36 | CP.PCM.PN ---
Subjective - Date & Time of Evaluation Date of Evaluation: 11/12/17 Time of Evaluation: 07:31 - Subjective Subjective: Surgery: Dr. Patel Patient doing well. G tube on gravity drainage overnight. output minimal. Objective - Vital Signs/Intake and Output Vital Signs (last 24 hours): Temp Pulse Resp BP Pulse Ox 98.5 F 101 H 20 175/98 H 92 L 11/12/17 06:00 11/12/17 06:00 11/12/17 06:00 11/12/17 06:00 11/12/17 06:00 Intake and Output: 11/12/17 11/12/17 06:59 18:59 Intake Total 2400 Output Total 800 Balance 1600 - Medications Medications: Current Medications Albuterol Sulfate (Albuterol 0.083% Inhal Snow (2.5 Mg/3 Ml) Ud) 2.5 mg IH Q2H PRN PRN Reason: Shortness of Breath Albuterol Sulfate (Albuterol 0.083% Inhal Snow (2.5 Mg/3 Ml) Ud) 2.5 mg INH [id number] [facility] Last Admin: 11/12/17 04:00 Dose: 2.5 mg Heparin Sodium (Porcine) (Heparin) 5,000 units SC Q12 [facility] PRN Reason: Protocol Last Admin: 11/11/17 21:26 Dose: 5,000 units Hydralazine HCl (Apresoline) 10 mg IVP Q6 PRN PRN Reason: Systolic Blood Pressure >180 Last Admin: 11/06/17 12:04 Dose: 10 mg Potassium Chloride 20 meq/ (Dextrose/Sodium Chloride) 1,010 mls @ 100 mls/hr IV .Q10H6M [facility] Last Admin: 11/12/17 03:27 Dose: 100 mls/hr Lactic Acid (Lac-Hydrin 12% Lotion (225 G)) 1 gm EXT Q12 [facility] Last Admin: 11/11/17 22:30 Dose: 2 applic Lorazepam (Ativan) 0.5 mg IVP Q6H PRN; Protocol PRN Reason: Anxiety Last Admin: 11/07/17 22:00 Dose: 0.5 mg Methylprednisolone (Solu-Medrol) 20 mg IVP DAILY [facility] Last Admin: 11/11/17 10:25 Dose: 20 mg Morphine Sulfate (Morphine) 2 mg IVP Q4H PRN PRN Reason: Pain, moderate (4-7) Last Admin: 11/12/17 02:58 Dose: 2 mg Nicotine (Nicoderm Cq) 1 patch TD DAILY [facility] Last Admin: 11/11/17 10:25 Dose: 1 patch Ondansetron HCl (Zofran Inj) 4 mg IVP Q6H PRN PRN Reason: Nausea/Vomiting Pantoprazole Sodium (Protonix Inj) 40 mg IVP DAILY [facility] Last Admin: 11/11/17 10:25 Dose: 40 mg - Labs Labs: 11/12/17 06:00 11/12/17 06:00 PT 16.8 SECONDS (9.4-12.5) H 11/11/17 05:40 INR 1.45 (0.93-1.08) H 11/11/17 05:40 APTT 25.2 Seconds (25.1-36.5) 11/11/17 05:40 - Constitutional Appears: Non-toxic, Cachectic - Head Exam Head Exam: ATRAUMATIC, NORMOCEPHALIC - Eye Exam Eye Exam: EOMI - ENT Exam ENT Exam: Mucous Membranes Dry - Respiratory Exam Respiratory Exam: NORMAL BREATHING PATTERN. absent: Respiratory Distress Additional comments: trach in place on collar - GI/Abdominal Exam GI & Abdominal Exam: Soft, Tenderness (caroline-incisional with G tube in place). absent: Guarding, Rebound - Neurological Exam Neurological Exam: Alert, Awake Assessment and Plan - Assessment and Plan (Free Text) Assessment: 52 y/o male w/ posterior pharyngeal mass s/p Donna gastrostomy POD1 Plan: -ok to initiate tube feeds, Jevity start at 20cc, increase by 10cc/hr for a goal of 70cc/hr, flush with free water 50cc/4hrs -check residual every four hours, if greater than 500cc hold tube feeds and recheck in 4 hours -reinforce dressing prn -further recs per Dr. Jorge Garcia PGY3
[2017-11-12 09:05] LABS: LYMPHOCYTE 8 % (22.0-35.0); MONOCYTE 8 % (1.0-6.0); NEUTROPHIL 84 % (50.0-70.0); PLATELET ESTIMATE NORMAL (NORMAL)
[2017-11-12] MEDS: MethylPREDNISolone 40 mg Vial IVP SCH (10:08)
--- NOTE | 2017-11-12 14:02 | CP.PCM.PN ---
<Deidra Fox - Last Filed: 11/12/17 14:08> Subjective - Date & Time of Evaluation Date of Evaluation: 11/12/17 Time of Evaluation: 13:49 - Subjective Subjective: Deidra Fox, PGY1, Medicine Progress Note for Dr Ren: Patient seen and examined at bedside. No acute events overnight. Pt reports pain at PEG site, controlled with his pain meds. Denies fever, chills, nausea, vomiting, abdominal pain. Pt's brother at bedside, wants discussion with oncologist and rad-onc regarding pt's diagnosis/treatment options. Objective - Vital Signs/Intake and Output Vital Signs (last 24 hours): Temp Pulse Resp BP Pulse Ox 98.9 F 87 20 128/74 92 L 11/12/17 12:00 11/12/17 12:00 11/12/17 12:00 11/12/17 12:00 11/12/17 06:00 Intake and Output: 11/12/17 11/12/17 06:59 18:59 Intake Total 2400 Output Total 800 Balance 1600 - Medications Medications: Current Medications Albuterol Sulfate (Albuterol 0.083% Inhal Snow (2.5 Mg/3 Ml) Ud) 2.5 mg IH Q2H PRN PRN Reason: Shortness of Breath Albuterol Sulfate (Albuterol 0.083% Inhal Snow (2.5 Mg/3 Ml) Ud) 2.5 mg INH [id number] [facility] Last Admin: 11/12/17 07:41 Dose: 2.5 mg Heparin Sodium (Porcine) (Heparin) 5,000 units SC Q12 [facility] PRN Reason: Protocol Last Admin: 11/12/17 10:13 Dose: Not Given Hydralazine HCl (Apresoline) 10 mg IVP Q6 PRN PRN Reason: Systolic Blood Pressure >180 Last Admin: 11/06/17 12:04 Dose: 10 mg Potassium Chloride 20 meq/ (Dextrose/Sodium Chloride) 1,010 mls @ 100 mls/hr IV .Q10H6M [facility] Last Admin: 11/12/17 03:27 Dose: 100 mls/hr Lactic Acid (Lac-Hydrin 12% Lotion (225 G)) 1 gm EXT Q12 [facility] Last Admin: 11/11/17 22:30 Dose: 2 applic Lorazepam (Ativan) 0.5 mg IVP Q6H PRN; Protocol PRN Reason: Anxiety Last Admin: 11/07/17 22:00 Dose: 0.5 mg Methylprednisolone (Solu-Medrol) 20 mg IVP DAILY [facility] Last Admin: 11/12/17 10:08 Dose: 20 mg Morphine Sulfate (Morphine) 2 mg IVP Q4H PRN PRN Reason: Pain, moderate (4-7) Last Admin: 11/12/17 09:46 Dose: 2 mg Nicotine (Nicoderm Cq) 1 patch TD DAILY [facility] Last Admin: 11/12/17 10:12 Dose: Not Given Ondansetron HCl (Zofran Inj) 4 mg IVP Q6H PRN PRN Reason: Nausea/Vomiting Pantoprazole Sodium (Protonix Inj) 40 mg IVP DAILY [facility] Last Admin: 11/12/17 09:45 Dose: 40 mg - Labs Labs: 11/12/17 06:00 11/12/17 06:00 PT 16.8 SECONDS (9.4-12.5) H 11/11/17 05:40 INR 1.45 (0.93-1.08) H 11/11/17 05:40 APTT 25.2 Seconds (25.1-36.5) 11/11/17 05:40 - Additional Findings Additional findings: - Constitutional Appears: Non-toxic, No Acute Distress - Head Exam Head Exam: ATRAUMATIC, NORMOCEPHALIC - Eye Exam Eye Exam: EOMI, PERRL. absent: Conjunctival injection, Nystagmus, Scleral icterus Pupil Exam: PERRL. absent: Fixed, Irregular, Miosis, Unequal - ENT Exam ENT Exam: Mucous Membranes Moist - Neck Exam Neck Exam: Full ROM - Respiratory Exam Respiratory Exam: Clear to Auscultation Bilaterally, mild bronchospasm noted. NORMAL BREATHING PATTERN. absent: Accessory Muscle Use, Rales, Rhonchi, Wheezes , Respiratory Distress Additional comments: + trach in place. - Cardiovascular Exam Cardiovascular Exam: RRR, +S1, +S2. absent: Murmur - GI/Abdominal Exam GI & Abdominal Exam: Soft, hypoactive bowel sounds. G tube site covered in dressing, c/d/i. Mildly TTP at the site. Absent: Distended, Rigid, Mass, Organomegaly, Rebound - Extremities Exam Extremities Exam: Full ROM, Normal Inspection. absent: Calf Tenderness, Pedal Edema - Back Exam Back Exam: NORMAL INSPECTION - Neurological Exam Neurological Exam: Alert, Awake, Oriented x3 - Psychiatric Exam Psychiatric exam: Normal Affect, Normal Mood - Skin Skin Exam: Dry, Normal Color, Warm Assessment and Plan - Assessment and Plan (Free Text) Assessment: 52 year old male with a past medical history significant for asthma, COPD, tobacco abuse, and alcohol abuse who was admitted for hypercapneic respiratory failure, hyponatremia, leukocytosis, and indeterminate troponins. Patient was noted to have a laryngeal mass that was biopsied and determined to be SCC. Patient is s/p trach and G tube. Patient and family would like to speak with Heme/onc and Radiation oncologist regarding pt's diagnosis//treatment options. They would also like second opinion from another heme-onc, Dr Burleson ([phone]): 1. Laryngeal Squamous Cell Carcinoma -CT Neck/Soft Tissue showed 2.7 x 2.0 x 4.5 cm left supraglottic soft tissue mass extending involving the left aryepiglottic fold, paraglottic fat, left thyroid cartilage with destruction of the posterior cartilage and extension beyond the margin of the thyroid cartilage as well as posterior extension into the hypopharynx with metastatic enlarged left level 1B to level 5 lymph nodes -CT Chest/Abdomen/Pelvis showed no overt masses or gross evidence of metastatic disease -Biopsy of laryngeal mass demonstrating SCC -S/P Trach and awaiting open G-tube placement today -Continue IV Solu-Medrol to 20mg Daily -Continue Duonebs Q4 scheduled and Q2 PRN -Continue BiPAP PRN -D5/Half NS with KCl at 60mls/hr until adequate PO/parenteral intake -Started tube feeds per surgery. when pt tolerating feeds, will decrease IVF. -HOB elevated -Aspiration precautions -Radiation Oncology, ENT, Heme/Onc and Surgery consulted, all recommendations appreciated 2. Hyponatremia -Resolved -Nephro consulted, all recommendations appreciated 3. HTN -Labile BP readings. On prn hydralazine 10 mg IV q6 prn. -Hold Cozaar 50 mg daily, Clonidine TD -cont to monitor. 4. Iron Deficiency Anemia -Stable -Likely component of ACD in addition to EDDA -S/P five day course of Venofer -Continue to monitor with daily CBC's 5. History of Tobacco Abuse -Nicoderm CQ 21mg/day 6. History of Anxiety -Continue Ativan 0.5mg IVP Q6 PRN 7. Xeroderma -Continue Lac-Hydrin 12% Lotion -Continue Wound Care GI Prophylaxis: Protonix DVT Prophylaxis: Heparin Patient seen and case discussed with attending, Dr. Ren. <Francisco J Ren - Last Filed: 11/12/17 15:44> Objective - Vital Signs/Intake and Output Vital Signs (last 24 hours): Temp Pulse Resp BP Pulse Ox 98.9 F 87 20 128/74 92 L 11/12/17 12:00 11/12/17 12:00 11/12/17 12:00 11/12/17 12:00 11/12/17 06:00 Intake and Output: 11/12/17 11/12/17 06:59 18:59 Intake Total 2400 Output Total 800 Balance 1600 - Medications Medications: Current Medications Albuterol Sulfate (Albuterol 0.083% Inhal Snow (2.5 Mg/3 Ml) Ud) 2.5 mg IH Q2H PRN PRN Reason: Shortness of Breath Albuterol Sulfate (Albuterol 0.083% Inhal Snow (2.5 Mg/3 Ml) Ud) 2.5 mg INH [id number] [facility] Last Admin: 11/12/17 13:59 Dose: 2.5 mg Heparin Sodium (Porcine) (Heparin) 5,000 units SC Q12 [facility] PRN Reason: Protocol Last Admin: 11/12/17 10:13 Dose: Not Given Hydralazine HCl (Apresoline) 10 mg IVP Q6 PRN PRN Reason: Systolic Blood Pressure >180 Last Admin: 11/06/17 12:04 Dose: 10 mg Potassium Chloride 20 meq/ (Dextrose/Sodium Chloride) 1,010 mls @ 100 mls/hr IV .Q10H6M [facility] Last Admin: 11/12/17 03:27 Dose: 100 mls/hr Lactic Acid (Lac-Hydrin 12% Lotion (225 G)) 1 gm EXT Q12 [facility] Last Admin: 11/11/17 22:30 Dose: 2 applic Lorazepam (Ativan) 0.5 mg IVP Q6H PRN; Protocol PRN Reason: Anxiety Last Admin: 11/07/17 22:00 Dose: 0.5 mg Methylprednisolone (Solu-Medrol) 20 mg IVP DAILY [facility] Last Admin: 11/12/17 10:08 Dose: 20 mg Morphine Sulfate (Morphine) 2 mg IVP Q4H PRN PRN Reason: Pain, moderate (4-7) Last Admin: 11/12/17 09:46 Dose: 2 mg Nicotine (Nicoderm Cq) 1 patch TD DAILY [facility] Last Admin: 11/12/17 10:12 Dose: Not Given Ondansetron HCl (Zofran Inj) 4 mg IVP Q6H PRN PRN Reason: Nausea/Vomiting Pantoprazole Sodium (Protonix Inj) 40 mg IVP DAILY [facility] Last Admin: 11/12/17 09:45 Dose: 40 mg - Labs Labs: 11/12/17 06:00 11/12/17 06:00 PT 16.8 SECONDS (9.4-12.5) H 11/11/17 05:40 INR 1.45 (0.93-1.08) H 11/11/17 05:40 APTT 25.2 Seconds (25.1-36.5) 11/11/17 05:40 Attending/Attestation - Attestation I have personally seen and examined this patient.: Yes I have fully participated in the care of the patient.: Yes I have reviewed all pertinent clinical information, including history, physical exam and plan: Yes Notes (Text): 11/12/17 15:40 Patient was seen and examined with certified medical assistant. Brother is at bed side.Agreed with assessment and plan. 52 year old male with past medical history of COPD and alcohol abuse was admitted with with hypercapnic respiratory failure s/p intubation. CT neck showed large supraglottic soft tissue mass with metastatic lymph nodes. CT chest/abd/pelvis was negative for overt mass or lymphadenopathy. He is s/p tracheostomy and biopsy. Pathology result confirms squamous cell carcinoma.Patient is SP PEG tube yesterday. Hyponatremia has improved since admission. Oncology and radiation oncology evaluation is noted, will request oncology follow up for finalization of treatment plan for squamous cell carcinoma. Management plan was discussed in detail with patient. Education was provided.
[2017-11-12] MEDS: Ammonium Lactate 12% Lotion (225 g) EXT SCH ×2 (16:26→22:21)
[2017-11-13] MEDS: Albuterol 0.083% Inhal Sol (2.5 mg/3 mL) UD INH SCH ×4 (01:12→19:45)
[2017-11-13 01:58] LABS: URINE BILIRUBIN NEGATIVE (NEGATIVE); URINE BLOOD TRACE-LYSED (NEGATIVE); URINE GLUCOSE (UA) NEGATIVE (NEGATIVE); URINE LEUKOCYTE ESTERASE NEGATIVE Leu/uL (NEGATIVE); URINE NITRATE NEGATIVE (NEGATIVE); URINE PROTEIN NEGATIVE mg/dL (<30 mg/dL); URINE UROBILINOGEN 0.2 E.U./dL (<1 E.U./dL)
[2017-11-13 02:05] LABS: URINE APPEARANCE CLEAR (CLEAR); URINE COLOR YELLOW (YELLOW)
[2017-11-13 02:10] LABS: URINE BACTERIA RARE (NEG); URINE EPITHELIAL CELLS 0 - 2 /hpf (0-5); URINE RBC 0 - 2 /hpf (0-2); URINE WBC 0 - 2 /hpf (0-6)
[2017-11-13] MEDS: Potassium Chloride 20 MEQ in Dextrose 5%/0.45% NS 1,000 ML IV SCH (04:40)
--- NOTE | 2017-11-13 09:01 | RAD ---
HISTORY: febrile, aspiration pna? COMPARISON: Comparison is made with the previous study dated 11/13/2017 at 2:23 and study dated 11/08/2017 FINDINGS: LUNGS: There are hazy opacity at the lower lobes more prominent on the right may represent atelectasis. The tracheostomy tube seen in place. PLEURA: There is a blunting of the right costophrenic angle noted. CARDIOVASCULAR: Normal. OSSEOUS STRUCTURES: No significant abnormalities. VISUALIZED UPPER ABDOMEN: There are foci of lucency in the upper abdomen likely represent free air. OTHER FINDINGS: None. IMPRESSION: Suspicious for free air in the abdomen. Hazy opacities at the lung bases larger on more conspicuous on the right may represent atelectasis. The possibility of infiltrate at the right lung base is not excluded.
[2017-11-13 09:42] LABS: BASO # 0.01 K/mm3 (0.0-2.0); BASO % 0.1 % (0.0-3.0); EOS % 0.2 % (1.5-5.0); GRAN # 13.29 (1.4-6.5); GRAN % 86.3 % (50.0-68.0); HEMOGLOBIN 11.1 g/dL (14.0-18.0); LYMPH # 1.1 (1.2-3.4); LYMPH % 6.9 % (22.0-35.0); MEAN CELL VOLUME 88.9 fl (80.0-105.0); MEAN CORPUSCULAR HEMOGLOBIN 29.4 pg (25.0-35.0); MEAN PLATELET VOLUME 9.8 fl (7.0-11.0); MONO % 6.5 % (1.0-6.0); RBC 3.78 10^6/uL (3.5-6.1); RED CELL DISTRIBUTION WIDTH 13.2 % (11.5-14.5); WHITE BLOOD COUNT 15.4 10^3/ul (4.5-11.0)
[2017-11-13 09:52] LABS: ALT/SGPT 36 U/L (7-56); AST/SGOT 23 U/L (17-59); BLOOD UREA NITROGEN 10 mg/dL (7-21); GFR AFRICAN-AMERICAN > 60; GFR NON-AFRICAN AMERICAN > 60
--- NOTE | 2017-11-13 10:02 | RAD ---
HISTORY: fever post procedure COMPARISON: 11/08/2017 FINDINGS: LUNGS: No active pulmonary disease. PLEURA: No significant pleural effusion identified, no pneumothorax apparent. CARDIOVASCULAR: Normal. OSSEOUS STRUCTURES: No significant abnormalities. VISUALIZED UPPER ABDOMEN: There is a large amount of free air beneath the diaphragms. I spoke to the patient's nurse at 10 a.m. 11/13/2017. The patient has a history PEG tube insertion. The amount of air seen under the diaphragms is greater than expected for typical PEG insertion. OTHER FINDINGS: None. IMPRESSION: Free air beneath the diaphragms. See comments
[2017-11-13] MEDS: Ammonium Lactate 12% Lotion (225 g) EXT SCH ×2 (10:58→21:59)
--- NOTE | 2017-11-13 11:17 | CP.PCM.PN ---
Subjective - Date & Time of Evaluation Date of Evaluation: 11/13/17 Time of Evaluation: 11:13 - Subjective Subjective: Surgery: Dr. silva Patient doing well. Pain controlled. Tube feeds running at 30cc/hr, goal 70cc/ hr. Objective - Vital Signs/Intake and Output Vital Signs (last 24 hours): Temp Pulse Resp BP Pulse Ox 99.5 F 88 16 110/73 90 L 11/13/17 08:11 11/13/17 08:11 11/13/17 08:11 11/13/17 08:11 11/13/17 08:11 Intake and Output: 11/13/17 11/13/17 06:59 18:59 Output Total 300 Balance -300 - Medications Medications: Current Medications Albuterol Sulfate (Albuterol 0.083% Inhal Snow (2.5 Mg/3 Ml) Ud) 2.5 mg IH Q2H PRN PRN Reason: Shortness of Breath Last Admin: 11/13/17 01:12 Dose: 2.5 mg Albuterol Sulfate (Albuterol 0.083% Inhal Snow (2.5 Mg/3 Ml) Ud) 2.5 mg INH [id number] [facility] Last Admin: 11/13/17 07:25 Dose: 2.5 mg Heparin Sodium (Porcine) (Heparin) 5,000 units SC Q12 [facility] PRN Reason: Protocol Last Admin: 11/13/17 10:58 Dose: 5,000 units Hydralazine HCl (Apresoline) 10 mg IVP Q6 PRN PRN Reason: Systolic Blood Pressure >180 Last Admin: 11/06/17 12:04 Dose: 10 mg Potassium Chloride 20 meq/ (Dextrose/Sodium Chloride) 1,010 mls @ 100 mls/hr IV .Q10H6M [facility] Last Admin: 11/13/17 04:40 Dose: 100 mls/hr Lactic Acid (Lac-Hydrin 12% Lotion (225 G)) 1 gm EXT Q12 [facility] Last Admin: 11/13/17 10:58 Dose: 1 tcp Lorazepam (Ativan) 0.5 mg IVP Q6H PRN; Protocol PRN Reason: Anxiety Last Admin: 11/07/17 22:00 Dose: 0.5 mg Morphine Sulfate (Morphine) 2 mg IVP Q4H PRN PRN Reason: Pain, moderate (4-7) Last Admin: 11/12/17 09:46 Dose: 2 mg Nicotine (Nicoderm Cq) 1 patch TD DAILY [facility] Last Admin: 11/13/17 10:58 Dose: 1 patch Ondansetron HCl (Zofran Inj) 4 mg IVP Q6H PRN PRN Reason: Nausea/Vomiting Pantoprazole Sodium (Protonix Inj) 40 mg IVP DAILY [facility] Last Admin: 11/13/17 10:57 Dose: 40 mg Prednisone (Prednisone Tab) 40 mg PO DAILY [facility] Last Admin: 11/13/17 10:58 Dose: 40 mg - Labs Labs: 11/13/17 09:30 11/13/17 09:30 PT 16.8 SECONDS (9.4-12.5) H 11/11/17 05:40 INR 1.45 (0.93-1.08) H 11/11/17 05:40 APTT 25.2 Seconds (25.1-36.5) 11/11/17 05:40 - Constitutional Appears: Cachectic - Head Exam Head Exam: ATRAUMATIC, NORMOCEPHALIC - Eye Exam Eye Exam: EOMI, Normal appearance - ENT Exam ENT Exam: Mucous Membranes Moist - Neck Exam Additional comments: Trach - Respiratory Exam Respiratory Exam: absent: Respiratory Distress - Cardiovascular Exam Cardiovascular Exam: REGULAR RHYTHM. absent: Tachycardia - GI/Abdominal Exam GI & Abdominal Exam: Soft, Tenderness (caroline-incisional gtube in RUQ tube feeds infusing ). absent: Guarding, Rebound - Neurological Exam Neurological Exam: Alert, Awake - Skin Skin Exam: Dry, Warm Assessment and Plan - Assessment and Plan (Free Text) Assessment: 52 y/o male with posterior pharyngeal mass s/p open gastrostomy placement Plan: -ok to advanced tube feeds to goal -Xray image seen, pneumoperitoneum most likely secondary to open Gtube placement -PT/OT -no further surgical intervention at this time -eliud to be removed POD10 if skin well healed -further recs per Dr. Jorge Garcia PGY3
--- NOTE | 2017-11-13 13:55 | CP.PCM.PN ---
Subjective - Date & Time of Evaluation Date of Evaluation: 11/13/17 Time of Evaluation: 13:51 - Subjective Subjective: Deidra Fox, PGY1, Medicine Progress Note for Dr Ren: Patient seen and examined at bedside. Pt febrile overnight 101.1F, with desats, resolved after suctioning by RT. Received one rectal tylenol suppository. Currently denies fever, chills, heartburn, cough, abdominal pain, urinary symptoms. Pt's family wants discussion of cancer diagnosis and management with heme-onc and rad-onc. Objective - Vital Signs/Intake and Output Vital Signs (last 24 hours): Temp Pulse Resp BP Pulse Ox 99.5 F 88 16 110/73 90 L 11/13/17 08:11 11/13/17 08:11 11/13/17 08:11 11/13/17 08:11 11/13/17 08:11 Intake and Output: 11/13/17 11/13/17 06:59 18:59 Output Total 300 Balance -300 - Medications Medications: Current Medications Albuterol Sulfate (Albuterol 0.083% Inhal Snow (2.5 Mg/3 Ml) Ud) 2.5 mg IH Q2H PRN PRN Reason: Shortness of Breath Last Admin: 11/13/17 01:12 Dose: 2.5 mg Albuterol Sulfate (Albuterol 0.083% Inhal Snow (2.5 Mg/3 Ml) Ud) 2.5 mg INH [id number] [facility] Last Admin: 11/13/17 13:10 Dose: 2.5 mg Heparin Sodium (Porcine) (Heparin) 5,000 units SC Q12 [facility] PRN Reason: Protocol Last Admin: 11/13/17 10:58 Dose: 5,000 units Hydralazine HCl (Apresoline) 10 mg IVP Q6 PRN PRN Reason: Systolic Blood Pressure >180 Last Admin: 11/06/17 12:04 Dose: 10 mg Potassium Chloride 20 meq/ (Dextrose/Sodium Chloride) 1,010 mls @ 100 mls/hr IV .Q10H6M [facility] Last Admin: 11/13/17 04:40 Dose: 100 mls/hr Lactic Acid (Lac-Hydrin 12% Lotion (225 G)) 1 gm EXT Q12 [facility] Last Admin: 11/13/17 10:58 Dose: 1 tcp Lorazepam (Ativan) 0.5 mg IVP Q6H PRN; Protocol PRN Reason: Anxiety Last Admin: 11/07/17 22:00 Dose: 0.5 mg Morphine Sulfate (Morphine) 2 mg IVP Q4H PRN PRN Reason: Pain, moderate (4-7) Last Admin: 11/12/17 09:46 Dose: 2 mg Nicotine (Nicoderm Cq) 1 patch TD DAILY [facility] Last Admin: 11/13/17 10:58 Dose: 1 patch Ondansetron HCl (Zofran Inj) 4 mg IVP Q6H PRN PRN Reason: Nausea/Vomiting Pantoprazole Sodium (Protonix Inj) 40 mg IVP DAILY [facility] Last Admin: 11/13/17 10:57 Dose: 40 mg Prednisone (Prednisone Tab) 40 mg PO DAILY [facility] Last Admin: 11/13/17 10:58 Dose: 40 mg - Labs Labs: 11/13/17 09:30 11/13/17 09:30 PT 16.8 SECONDS (9.4-12.5) H 11/11/17 05:40 INR 1.45 (0.93-1.08) H 11/11/17 05:40 APTT 25.2 Seconds (25.1-36.5) 11/11/17 05:40 - Additional Findings Additional findings: - Constitutional Appears: Non-toxic, No Acute Distress - Head Exam Head Exam: ATRAUMATIC, NORMOCEPHALIC - Eye Exam Eye Exam: EOMI, PERRL. absent: Conjunctival injection, Nystagmus, Scleral icterus Pupil Exam: PERRL. absent: Fixed, Irregular, Miosis, Unequal - ENT Exam ENT Exam: Mucous Membranes Moist - Neck Exam Neck Exam: Full ROM - Respiratory Exam Respiratory Exam: Clear to Auscultation Bilaterally, mild bronchospasm noted. NORMAL BREATHING PATTERN. absent: Accessory Muscle Use, Rales, Rhonchi, Wheezes , Respiratory Distress Additional comments: + trach in place. - Cardiovascular Exam Cardiovascular Exam: RRR, +S1, +S2. absent: Murmur - GI/Abdominal Exam GI & Abdominal Exam: Soft, nontender, + BS. G tube site covered in dressing, c/d /i. Absent: Distended, Rigid, Mass, Organomegaly, Rebound - Extremities Exam Extremities Exam: Full ROM, Normal Inspection. absent: Calf Tenderness, Pedal Edema - Back Exam Back Exam: NORMAL INSPECTION - Neurological Exam Neurological Exam: Alert, Awake, Oriented x3 - Psychiatric Exam Psychiatric exam: Normal Affect, Normal Mood - Skin Skin Exam: Dry, Normal Color, Warm Assessment and Plan - Assessment and Plan (Free Text) Assessment: 52 year old male with a past medical history significant for asthma, COPD, tobacco abuse, and alcohol abuse who was admitted for hypercapneic respiratory failure, hyponatremia, leukocytosis, and indeterminate troponins. Patient was noted to have a laryngeal mass that was biopsied and determined to be SCC. Patient is s/p trach and G tube. Patient and family would like to speak with Heme/onc and Radiation oncologist regarding pt's diagnosis//treatment options. They would also like second opinion from another heme-onc, Dr Burleson ([phone]). Currently awaiting placement at LTAC: 1. Laryngeal Squamous Cell Carcinoma -CT Neck/Soft Tissue showed 2.7 x 2.0 x 4.5 cm left supraglottic soft tissue mass extending involving the left aryepiglottic fold, paraglottic fat, left thyroid cartilage with destruction of the posterior cartilage and extension beyond the margin of the thyroid cartilage as well as posterior extension into the hypopharynx with metastatic enlarged left level 1B to level 5 lymph nodes -CT Chest/Abdomen/Pelvis showed no overt masses or gross evidence of metastatic disease -Biopsy of laryngeal mass demonstrating SCC -S/P Trach and G-tube -Start Prednisone PO 40 daily. -Continue Duonebs Q4 scheduled and Q2 PRN -Continue BiPAP PRN -D5/Half NS with KCl at 60mls/hr until adequate PO/parenteral intake -C/w tube feeds. No residuals. When pt at goal rate 70/h, will decrease IVF. -HOB elevated -Aspiration precautions -Radiation Oncology, ENT, Heme/Onc and Surgery consulted, all recommendations appreciated 2. Hyponatremia -Resolved -Nephro consulted, all recommendations appreciated 3. HTN - Labile readings. On prn hydralazine 10 mg IV q6 prn. -Hold Cozaar 50 mg daily, Clonidine TD -cont to monitor. 4. Iron Deficiency Anemia -Stable -Likely component of ACD in addition to EDDA -S/P five day course of Venofer -Continue to monitor with daily CBC's 5. History of Tobacco Abuse -Nicoderm CQ 21mg/day 6. History of Anxiety -Continue Ativan 0.5mg IVP Q6 PRN 7. Xeroderma -Continue Lac-Hydrin 12% Lotion -Continue Wound Care GI Prophylaxis: Protonix DVT Prophylaxis: Heparin Dispo: Awaiting plan from heme-onc and rad-onc. Awaiting LTAC placement per SW. Patient seen and case discussed with attending, Dr. Ren.
[2017-11-13] MEDS ORDERED: Iohexol 240 (50 ml) ONE (14:27)
[2017-11-13] MEDS: Morphine 2 mg/ml ISec IVP PRN (19:45)
[2017-11-14] MEDS: Morphine 2 mg/ml ISec IVP PRN ×4 (00:23→21:17)
[2017-11-14] MEDS: Albuterol 0.083% Inhal Sol (2.5 mg/3 mL) UD INH SCH ×4 (01:11→19:56)
[2017-11-14 07:16] LABS: EOS # 0.1 (0.0-0.7); EOS % 0.5 % (1.5-5.0); GRAN # 12.36 (1.4-6.5); GRAN % 83.2 % (50.0-68.0); LYMPH # 1.2 (1.2-3.4); LYMPH % 8.4 % (22.0-35.0); MEAN CELL VOLUME 89.1 fl (80.0-105.0); MEAN CORPUSCULAR HEMOGLOBIN 29.3 pg (25.0-35.0); MEAN CORPUSCULAR HGB CONC 32.8 g/dl (31.0-37.0); MONO # 1.2 (0.1-0.6); MONO % 7.9 % (1.0-6.0); RBC 3.76 10^6/uL (3.5-6.1); RED CELL DISTRIBUTION WIDTH 13.1 % (11.5-14.5); WHITE BLOOD COUNT 14.8 10^3/ul (4.5-11.0)
[2017-11-14 07:20] LABS: ALBUMIN 2.9 g/dL (3.0-4.8); ALT/SGPT 37 U/L (7-56); AST/SGOT 22 U/L (17-59); BLOOD UREA NITROGEN 8 mg/dL (7-21); CALCIUM 9.4 mg/dL (8.4-10.5); GFR AFRICAN-AMERICAN > 60; GFR NON-AFRICAN AMERICAN > 60
--- NOTE | 2017-11-14 08:21 | RAD ---
PROCEDURE: Upper GI HISTORY: Possible gastrostomy tube leak/dislodgement COMPARISON: TECHNIQUE: Water-soluble contrast was injected into the gastrostomy tube FINDINGS: Contrast was injected through the gastrostomy tube. Contrast can be seen within the stomach and duodenum. The balloon tip catheter is only minimally inflated. Contrast extends retrograde along the catheter and collects beneath the surgical dressing on the skin surface. On the lateral and oblique views the catheter is located anteriorly. There is also some intraperitoneal extravasation of contrast coating the adjacent small bowel loops. These findings were discussed with the certified surgical technician at the time of the exam IMPRESSION: Suboptimal position of gastrostomy tube which is only partially in the gastric lumen.
--- NOTE | 2017-11-14 09:20 | CP.PCM.PN ---
Subjective - Date & Time of Evaluation Date of Evaluation: 11/14/17 Time of Evaluation: 09:12 - Subjective Subjective: Surgery progress note Dr. Patel Patient seen and examined at bedside. Patient complains of some pain this am, otherwise doing okay. IR tube advancement today Objective - Vital Signs/Intake and Output Vital Signs (last 24 hours): Temp Pulse Resp BP Pulse Ox 98.6 F 73 20 147/93 H 100 11/14/17 07:30 11/14/17 07:30 11/14/17 07:30 11/14/17 07:30 11/14/17 07:30 Intake and Output: 11/14/17 11/14/17 06:59 18:59 Intake Total 1440 Output Total 650 Balance 790 - Medications Medications: Current Medications Albuterol Sulfate (Albuterol 0.083% Inhal Snow (2.5 Mg/3 Ml) Ud) 2.5 mg IH Q2H PRN PRN Reason: Shortness of Breath Last Admin: 11/13/17 01:12 Dose: 2.5 mg Albuterol Sulfate (Albuterol 0.083% Inhal Snow (2.5 Mg/3 Ml) Ud) 2.5 mg INH [id number] [facility] Last Admin: 11/14/17 07:42 Dose: 2.5 mg Heparin Sodium (Porcine) (Heparin) 5,000 units SC Q12 [facility] PRN Reason: Protocol Last Admin: 11/13/17 21:59 Dose: 5,000 units Hydralazine HCl (Apresoline) 10 mg IVP Q6 PRN PRN Reason: Systolic Blood Pressure >180 Last Admin: 11/06/17 12:04 Dose: 10 mg Potassium Chloride 20 meq/ (Dextrose/Sodium Chloride) 1,010 mls @ 60 mls/hr IV .[id number] [facility] Lactic Acid (Lac-Hydrin 12% Lotion (225 G)) 1 gm EXT Q12 [facility] Last Admin: 11/13/17 21:59 Dose: 1 tcp Lorazepam (Ativan) 0.5 mg IVP Q6H PRN; Protocol PRN Reason: Anxiety Last Admin: 11/07/17 22:00 Dose: 0.5 mg Morphine Sulfate (Morphine) 2 mg IVP Q4H PRN PRN Reason: Pain, moderate (4-7) Last Admin: 11/14/17 06:02 Dose: 2 mg Nicotine (Nicoderm Cq) 1 patch TD DAILY [facility] Last Admin: 11/13/17 10:58 Dose: 1 patch Ondansetron HCl (Zofran Inj) 4 mg IVP Q6H PRN PRN Reason: Nausea/Vomiting Pantoprazole Sodium (Protonix Inj) 40 mg IVP DAILY [facility] Last Admin: 11/13/17 10:57 Dose: 40 mg Prednisone (Prednisone Tab) 40 mg PO DAILY [facility] Last Admin: 11/13/17 10:58 Dose: 40 mg - Labs Labs: 11/14/17 06:20 11/14/17 06:20 PT 16.8 SECONDS (9.4-12.5) H 11/11/17 05:40 INR 1.45 (0.93-1.08) H 11/11/17 05:40 APTT 25.2 Seconds (25.1-36.5) 11/11/17 05:40 - Constitutional Appears: Well - Head Exam Head Exam: ATRAUMATIC, NORMAL INSPECTION, NORMOCEPHALIC - Eye Exam Eye Exam: EOMI, Normal appearance, PERRL Pupil Exam: NORMAL ACCOMODATION, PERRL - ENT Exam ENT Exam: Mucous Membranes Moist, Normal Exam - Neck Exam Neck Exam: Full ROM, Normal Inspection. absent: Lymphadenopathy - Respiratory Exam Respiratory Exam: Clear to Ausculation Bilateral, NORMAL BREATHING PATTERN - Cardiovascular Exam Cardiovascular Exam: REGULAR RHYTHM, +S1, +S2. absent: Murmur - GI/Abdominal Exam GI & Abdominal Exam: Soft, Normal Bowel Sounds. absent: Tenderness Additional comments: G tube with mild leak but dressing is clean and intact - Extremities Exam Extremities Exam: Full ROM, Normal Capillary Refill, Normal Inspection. absent : Joint Swelling, Pedal Edema - Back Exam Back Exam: NORMAL INSPECTION - Neurological Exam Neurological Exam: Alert, Awake, CN II-XII Intact, Normal Gait, Oriented x3 - Psychiatric Exam Psychiatric exam: Normal Affect, Normal Mood - Skin Skin Exam: Dry, Intact, Normal Color, Warm Assessment and Plan - Assessment and Plan (Free Text) Assessment: 52 y/o male with posterior pharyngeal mass s/p open gastrostomy placement -tube feeds on hold right now -follow up IR tube advancement -no further surgical intervention at this time -eliud to be removed POD10 if skin well healed -further recs per Dr. Patel
[2017-11-14] MEDS ORDERED: Lidocaine 2% Jelly (Uro-Jet) TOP ONE (09:51)
[2017-11-14] MEDS ORDERED: Lidocaine 2% Inj (20ml) ONE (11:36)
[2017-11-14] MEDS ORDERED: Midazolam 2 MG/2 ML VIAL ONE ×2 (11:37→14:19)
[2017-11-14] MEDS ORDERED: HEPARIN SODIUM/NS 2,000 ML IV ONE (11:38)
[2017-11-14] MEDS ORDERED: Iodixanol 320 MG/ML 100 ML BOTTLE IV ONE (11:38)
--- NOTE | 2017-11-14 13:40 | CP.PCM.PN ---
<Deidra Fox - Last Filed: 11/14/17 13:35> Subjective - Date & Time of Evaluation Date of Evaluation: 11/14/17 Time of Evaluation: 13:35 - Subjective Subjective: Deidra Fox, PGY1, Medicine Progress Note for Dr Ren: Patient seen and examined at bedside. No acute events overnight. Around 1 PM yesterday afternoon, leaking was noted of tube feeds around G tube, pt NPO, scheduled for G tube advancement today. Pt had low grade temp 100.1F yesterday afternoon. Reports mild abdominal pain at the G tube site, controlled with meds , denies discharge/excessive erythema at the site. Denies chills, n/v, cough, leg swelling, urinary symptoms. Objective - Vital Signs/Intake and Output Vital Signs (last 24 hours): Temp Pulse Resp BP Pulse Ox 98.6 F 73 20 147/93 H 100 11/14/17 07:30 11/14/17 07:30 11/14/17 07:30 11/14/17 07:30 11/14/17 07:30 Intake and Output: 11/14/17 11/14/17 06:59 18:59 Intake Total 1440 Output Total 650 Balance 790 - Medications Medications: Current Medications Albuterol Sulfate (Albuterol 0.083% Inhal Snow (2.5 Mg/3 Ml) Ud) 2.5 mg IH Q2H PRN PRN Reason: Shortness of Breath Last Admin: 11/13/17 01:12 Dose: 2.5 mg Albuterol Sulfate (Albuterol 0.083% Inhal Snow (2.5 Mg/3 Ml) Ud) 2.5 mg INH [id number] [facility] Last Admin: 11/14/17 13:15 Dose: Not Given Heparin Sodium (Porcine) (Heparin) 5,000 units SC Q12 [facility] PRN Reason: Protocol Last Admin: 11/14/17 11:11 Dose: 5,000 units Hydralazine HCl (Apresoline) 10 mg IVP Q6 PRN PRN Reason: Systolic Blood Pressure >180 Last Admin: 11/06/17 12:04 Dose: 10 mg Potassium Chloride 20 meq/ (Dextrose/Sodium Chloride) 1,010 mls @ 60 mls/hr IV .[id number] [facility] Potassium Chloride (Potassium Chloride 10 Meq/100 Ml) 10 meq in 100 mls @ 50 mls/hr IVPB Q2H [facility] Stop: 11/14/17 13:59 Lactic Acid (Lac-Hydrin 12% Lotion (225 G)) 1 gm EXT Q12 [facility] Last Admin: 11/13/17 21:59 Dose: 1 tcp Lorazepam (Ativan) 0.5 mg IVP Q6H PRN; Protocol PRN Reason: Anxiety Last Admin: 11/07/17 22:00 Dose: 0.5 mg Morphine Sulfate (Morphine) 2 mg IVP Q4H PRN PRN Reason: Pain, moderate (4-7) Last Admin: 11/14/17 10:19 Dose: 2 mg Nicotine (Nicoderm Cq) 1 patch TD DAILY [facility] Last Admin: 11/14/17 12:21 Dose: Not Given Ondansetron HCl (Zofran Inj) 4 mg IVP Q6H PRN PRN Reason: Nausea/Vomiting Pantoprazole Sodium (Protonix Inj) 40 mg IVP DAILY [facility] Last Admin: 11/14/17 11:10 Dose: 40 mg Prednisone (Prednisone Tab) 40 mg PO DAILY [facility] Last Admin: 11/13/17 10:58 Dose: 40 mg - Labs Labs: 11/14/17 06:20 11/14/17 06:20 PT 16.8 SECONDS (9.4-12.5) H 11/11/17 05:40 INR 1.45 (0.93-1.08) H 11/11/17 05:40 APTT 25.2 Seconds (25.1-36.5) 11/11/17 05:40 - Additional Findings Additional findings: - Constitutional Appears: Non-toxic, No Acute Distress - Head Exam Head Exam: ATRAUMATIC, NORMOCEPHALIC - Eye Exam Eye Exam: EOMI, PERRL. absent: Conjunctival injection, Nystagmus, Scleral icterus Pupil Exam: PERRL. absent: Fixed, Irregular, Miosis, Unequal - ENT Exam ENT Exam: Mucous Membranes Moist - Neck Exam Neck Exam: Full ROM - Respiratory Exam Respiratory Exam: Clear to Auscultation Bilaterally. NORMAL BREATHING PATTERN. absent: Accessory Muscle Use, Rales, Rhonchi, Wheezes, Respiratory Distress Additional comments: + trach in place. - Cardiovascular Exam Cardiovascular Exam: RRR, +S1, +S2. absent: Murmur - GI/Abdominal Exam GI & Abdominal Exam: Soft, mildly tender at G Tube site, + BS. G tube site covered in dressing. Absent: Distended, Rigid, Mass, Organomegaly, Rebound - Extremities Exam Extremities Exam: Full ROM, Normal Inspection. absent: Calf Tenderness, Pedal Edema - Back Exam Back Exam: NORMAL INSPECTION - Neurological Exam Neurological Exam: Alert, Awake, Oriented x3 - Psychiatric Exam Psychiatric exam: Normal Affect, Normal Mood - Skin Skin Exam: Dry, Normal Color, Warm Assessment and Plan - Assessment and Plan (Free Text) Assessment: 52 year old male with a past medical history significant for asthma, COPD, tobacco abuse, and alcohol abuse who was admitted for hypercapneic respiratory failure, hyponatremia, leukocytosis, and indeterminate troponins. Patient was noted to have a laryngeal mass that was biopsied and determined to be SCC. Patient is s/p trach and G tube. G tube leaking noted, awaiting advancement of tube today with Dr Berkowitz. Patient and family would like second opinion from another heme-onc, Dr Magdaleno Botello in [place] ([phone]). 1. Laryngeal Squamous Cell Carcinoma -CT Neck/Soft Tissue showed 2.7 x 2.0 x 4.5 cm left supraglottic soft tissue mass extending involving the left aryepiglottic fold, paraglottic fat, left thyroid cartilage with destruction of the posterior cartilage and extension beyond the margin of the thyroid cartilage as well as posterior extension into the hypopharynx with metastatic enlarged left level 1B to level 5 lymph nodes -CT Chest/Abdomen/Pelvis showed no overt masses or gross evidence of metastatic disease -Biopsy of laryngeal mass demonstrating SCC -S/P Trach and G-tube -Prednisone PO 40 daily. -Continue Duonebs Q4 scheduled and Q2 PRN -Continue BiPAP PRN -D5/Half NS with KCl at 60mls/hr until adequate PO/parenteral intake -NPO due to G tube leak -HOB elevated -Aspiration precautions -Radiation Oncology, ENT, Heme/Onc and Surgery consulted, all recommendations appreciated 2. Hyponatremia -Resolved -Nephro consulted, all recommendations appreciated 3. HTN - Labile readings. On prn hydralazine 10 mg IV q6 prn. -Hold Cozaar 50 mg daily, Clonidine TD -cont to monitor. 4. Iron Deficiency Anemia -Stable -Likely component of ACD in addition to EDDA -S/P five day course of Venofer -Continue to monitor with daily CBC's 5. History of Tobacco Abuse -Nicoderm CQ 21mg/day 6. History of Anxiety -Continue Ativan 0.5mg IVP Q6 PRN 7. Xeroderma -Continue Lac-Hydrin 12% Lotion -Continue Wound Care 8. Hypokalemia: -repleted. GI Prophylaxis: Protonix DVT Prophylaxis: Heparin Dispo: Insurance does not allow LTAC placement. Pt will likely go home with family (brother Salomon), currently being taught nursing care of trach and G tube. Patient seen and case discussed with attending, Dr. Ren. <Francisco J Ren - Last Filed: 11/14/17 16:50> Objective - Vital Signs/Intake and Output Vital Signs (last 24 hours): Temp Pulse Resp BP Pulse Ox 98.6 F 92 H 20 130/80 99 11/14/17 15:01 11/14/17 15:01 11/14/17 15:01 11/14/17 15:01 11/14/17 15:01 Intake and Output: 11/14/17 11/14/17 06:59 18:59 Intake Total 1440 Output Total 650 Balance 790 - Medications Medications: Current Medications Albuterol Sulfate (Albuterol 0.083% Inhal Snow (2.5 Mg/3 Ml) Ud) 2.5 mg IH Q2H PRN PRN Reason: Shortness of Breath Last Admin: 11/13/17 01:12 Dose: 2.5 mg Albuterol Sulfate (Albuterol 0.083% Inhal Snow (2.5 Mg/3 Ml) Ud) 2.5 mg INH [id number] [facility] Last Admin: 11/14/17 13:15 Dose: Not Given Heparin Sodium (Porcine) (Heparin) 5,000 units SC Q12 [facility] PRN Reason: Protocol Last Admin: 11/14/17 11:11 Dose: 5,000 units Hydralazine HCl (Apresoline) 10 mg IVP Q6 PRN PRN Reason: Systolic Blood Pressure >180 Last Admin: 11/06/17 12:04 Dose: 10 mg Potassium Chloride 20 meq/ (Dextrose/Sodium Chloride) 1,010 mls @ 60 mls/hr IV .[id number] [facility] Lactic Acid (Lac-Hydrin 12% Lotion (225 G)) 1 gm EXT Q12 [facility] Last Admin: 11/13/17 21:59 Dose: 1 tcp Lorazepam (Ativan) 0.5 mg IVP Q6H PRN; Protocol PRN Reason: Anxiety Last Admin: 11/07/17 22:00 Dose: 0.5 mg Morphine Sulfate (Morphine) 2 mg IVP Q4H PRN PRN Reason: Pain, moderate (4-7) Last Admin: 11/14/17 10:19 Dose: 2 mg Nicotine (Nicoderm Cq) 1 patch TD DAILY [facility] Last Admin: 11/14/17 12:21 Dose: Not Given Ondansetron HCl (Zofran Inj) 4 mg IVP Q6H PRN PRN Reason: Nausea/Vomiting Pantoprazole Sodium (Protonix Inj) 40 mg IVP DAILY [facility] Last Admin: 11/14/17 11:10 Dose: 40 mg Prednisone (Prednisone Tab) 40 mg PO DAILY [facility] Last Admin: 11/13/17 10:58 Dose: 40 mg - Labs Labs: 11/14/17 06:20 11/14/17 06:20 PT 16.8 SECONDS (9.4-12.5) H 11/11/17 05:40 INR 1.45 (0.93-1.08) H 11/11/17 05:40 APTT 25.2 Seconds (25.1-36.5) 11/11/17 05:40 Attending/Attestation - Attestation I have personally seen and examined this patient.: Yes I have fully participated in the care of the patient.: Yes I have reviewed all pertinent clinical information, including history, physical exam and plan: Yes Notes (Text): 11/14/17 16:49 Patient was seen and examined with faculty i on call medical assistant. Agreed with assessment and plan. Management plan was discussed in detail with patient and patient brother in detail.. Education was provided.
[2017-11-14] MEDS: Ammonium Lactate 12% Lotion (225 g) EXT SCH ×3 (17:09→21:26)
--- NOTE | 2017-11-14 20:30 | VASCULAR ---
PROCEDURE: 1. Percutaneous fluoroscopic gastrostomy tube placement HISTORY: Laryngeal carcinoma. Recently placed surgical gastrostomy. Inadvertently removed. Needs feeding tube. PHYSICIAN(S): Arnie Berkowitz MD. TECHNIQUE: The relative risks and indications of the procedure were explained the patient consent obtained. A nasogastric tube was placed prior to the study. The surgical gastrostomy tube was prepped and draped usual sterile fashion. Contrast was injected and the tube was outside the stomach. The sinus tract was probed but did not enter the stomach. Subsequently the stomach was insufflated with air via the NG tube. The skin and soft tissue at the sinus tract was anesthetized 1 percent xylocaine. A 19 gauge needle was advanced through the sinus tract into the stomach. Air was aspirated. 0.035 support wire was placed in the stomach. Sequential dilatation was performed with subsequent placement of 14 Khmer pigtail gastrostomy tube in the antrum of the stomach. The catheter was flushed and secured. Position was confirmed with injection of contrast. FINDINGS: IMPRESSION: 1.The surgically placed gastrostomy tube was in the soft tissues in could not be salvage. 2. Fluoroscopically guided percutaneous gastrostomy tube placement as described above
[2017-11-15] MEDS: Albuterol 0.083% Inhal Sol (2.5 mg/3 mL) UD INH SCH ×4 (02:57→21:01)
[2017-11-15] MEDS: Potassium Chloride 20 MEQ in Dextrose 5%/0.45% NS 1,000 ML IV SCH (05:27)
[2017-11-15 07:23] LABS: BASO # 0.01 K/mm3 (0.0-2.0); BASO % 0.1 % (0.0-3.0); EOS % 0.1 % (1.5-5.0); GRAN # 14.71 (1.4-6.5); GRAN % 86.7 % (50.0-68.0); HEMOGLOBIN 11.7 g/dL (14.0-18.0); LYMPH # 1.1 (1.2-3.4); LYMPH % 6.6 % (22.0-35.0); MEAN CELL VOLUME 88.7 fl (80.0-105.0); MEAN CORPUSCULAR HEMOGLOBIN 29.9 pg (25.0-35.0); MEAN CORPUSCULAR HGB CONC 33.7 g/dl (31.0-37.0); MEAN PLATELET VOLUME 9.5 fl (7.0-11.0); MONO # 1.1 (0.1-0.6); MONO % 6.5 % (1.0-6.0); RBC 3.91 10^6/uL (3.5-6.1); RED CELL DISTRIBUTION WIDTH 13.1 % (11.5-14.5)
[2017-11-15 07:34] LABS: ALBUMIN 3.1 g/dL (3.0-4.8); ALT/SGPT 36 U/L (7-56); AST/SGOT 23 U/L (17-59); BLOOD UREA NITROGEN 9 mg/dL (7-21); GFR AFRICAN-AMERICAN > 60; GFR NON-AFRICAN AMERICAN > 60
--- NOTE | 2017-11-15 08:21 | CP.PCM.PN ---
Subjective - Date & Time of Evaluation Date of Evaluation: 11/15/17 Time of Evaluation: 07:20 - Subjective Subjective: Patient seen and examined at bedside. Patient has some pain but denies nausea or vomiting. Patient had gastrostomy tube exchanged for a pigtail catheter by IR yesterday. Objective - Vital Signs/Intake and Output Vital Signs (last 24 hours): Temp Pulse Resp BP Pulse Ox 98 F 82 20 137/88 90 L 11/14/17 16:00 11/14/17 16:00 11/14/17 16:00 11/14/17 16:00 11/14/17 16:00 Intake and Output: 11/15/17 11/15/17 06:59 18:59 Intake Total 720 Output Total 200 Balance 520 - Medications Medications: Current Medications Albuterol Sulfate (Albuterol 0.083% Inhal Snow (2.5 Mg/3 Ml) Ud) 2.5 mg IH Q2H PRN PRN Reason: Shortness of Breath Last Admin: 11/13/17 01:12 Dose: 2.5 mg Albuterol Sulfate (Albuterol 0.083% Inhal Snow (2.5 Mg/3 Ml) Ud) 2.5 mg INH [id number] [facility] Last Admin: 11/15/17 07:48 Dose: 2.5 mg Heparin Sodium (Porcine) (Heparin) 5,000 units SC Q12 [facility] PRN Reason: Protocol Last Admin: 11/14/17 21:26 Dose: 5,000 units Hydralazine HCl (Apresoline) 10 mg IVP Q6 PRN PRN Reason: Systolic Blood Pressure >180 Last Admin: 11/06/17 12:04 Dose: 10 mg Potassium Chloride 20 meq/ (Dextrose/Sodium Chloride) 1,010 mls @ 60 mls/hr IV .[id number] [facility] Last Admin: 11/15/17 05:27 Dose: 60 mls/hr Lactic Acid (Lac-Hydrin 12% Lotion (225 G)) 1 gm EXT Q12 [facility] Last Admin: 11/14/17 21:26 Dose: Not Given Lorazepam (Ativan) 0.5 mg IVP Q6H PRN; Protocol PRN Reason: Anxiety Last Admin: 11/07/17 22:00 Dose: 0.5 mg Morphine Sulfate (Morphine) 2 mg IVP Q4H PRN PRN Reason: Pain, moderate (4-7) Last Admin: 11/14/17 21:17 Dose: 2 mg Nicotine (Nicoderm Cq) 1 patch TD DAILY [facility] Last Admin: 11/14/17 12:21 Dose: Not Given Ondansetron HCl (Zofran Inj) 4 mg IVP Q6H PRN PRN Reason: Nausea/Vomiting Pantoprazole Sodium (Protonix Inj) 40 mg IVP DAILY [facility] Last Admin: 11/14/17 11:10 Dose: 40 mg Prednisone (Prednisone Tab) 40 mg PO DAILY [facility] Last Admin: 11/14/17 17:28 Dose: Not Given - Labs Labs: 11/15/17 07:00 11/15/17 07:00 PT 16.8 SECONDS (9.4-12.5) H 11/11/17 05:40 INR 1.45 (0.93-1.08) H 11/11/17 05:40 APTT 25.2 Seconds (25.1-36.5) 11/11/17 05:40 - Constitutional Appears: Non-toxic, No Acute Distress - Head Exam Head Exam: ATRAUMATIC, NORMOCEPHALIC - Eye Exam Eye Exam: Normal appearance. absent: Conjunctival injection, Scleral icterus - ENT Exam ENT Exam: Mucous Membranes Moist, Normal Oropharynx - Neck Exam Additional comments: tracheostomy tube in place - Respiratory Exam Respiratory Exam: NORMAL BREATHING PATTERN. absent: Accessory Muscle Use, Respiratory Distress - GI/Abdominal Exam GI & Abdominal Exam: Soft. absent: Distended Additional comments: midline incision well approximated by eliud. Pigtail gastrostomy tube in place. - Neurological Exam Neurological Exam: Alert, Awake, Oriented x3 - Psychiatric Exam Psychiatric exam: Normal Affect, Normal Mood - Skin Skin Exam: Dry, Normal Color, Warm Assessment and Plan - Assessment and Plan (Free Text) Assessment: 52 y/o male with posterior pharyngeal mass POD#4 s/p open gastrostomy tube placement and POD#1 s/p exchange of gastrostomy tube by IR Plan: -ok to resume tube feeds according to IR recommendations and titrate up to goal of 70cc's -PT/OT -no further surgical intervention at this time -abdominal incision eliud to be removed if skin well healed Further recs per Dr. Jorge Tovar, PGY2
[2017-11-15] MEDS: Ammonium Lactate 12% Lotion (225 g) EXT SCH ×2 (10:28→21:26)
--- NOTE | 2017-11-15 11:48 | CP.PCM.PN ---
<Deidra Fox - Last Filed: 11/15/17 11:45> Subjective - Date & Time of Evaluation Date of Evaluation: 11/15/17 Time of Evaluation: 11:45 - Subjective Subjective: Deidra Fox, PGY1, Medicine Progress Note for Dr Ren: Patient seen and examined at bedside. No acute events overnight. Reports mild abdominal pain at G tube site. Denies fever, chills, n/v, sob, leg swelling. Family at bedside states that he and brother have been actively learning to take care of his trach and G tube with nursing staff. Objective - Vital Signs/Intake and Output Vital Signs (last 24 hours): Temp Pulse Resp BP Pulse Ox 98.2 F 92 H 18 112/69 95 11/15/17 07:30 11/15/17 07:30 11/15/17 07:30 11/15/17 07:30 11/15/17 07:30 Intake and Output: 11/15/17 11/15/17 06:59 18:59 Intake Total 720 Output Total 200 Balance 520 - Medications Medications: Current Medications Albuterol Sulfate (Albuterol 0.083% Inhal Snow (2.5 Mg/3 Ml) Ud) 2.5 mg IH Q2H PRN PRN Reason: Shortness of Breath Last Admin: 11/13/17 01:12 Dose: 2.5 mg Albuterol Sulfate (Albuterol 0.083% Inhal Snow (2.5 Mg/3 Ml) Ud) 2.5 mg INH [id number] [facility] Last Admin: 11/15/17 07:48 Dose: 2.5 mg Heparin Sodium (Porcine) (Heparin) 5,000 units SC Q12 [facility] PRN Reason: Protocol Last Admin: 11/15/17 09:49 Dose: 5,000 units Hydralazine HCl (Apresoline) 10 mg IVP Q6 PRN PRN Reason: Systolic Blood Pressure >180 Last Admin: 11/06/17 12:04 Dose: 10 mg Potassium Chloride 20 meq/ (Dextrose/Sodium Chloride) 1,010 mls @ 60 mls/hr IV .[id number] [facility] Last Admin: 11/15/17 05:27 Dose: 60 mls/hr Lactic Acid (Lac-Hydrin 12% Lotion (225 G)) 1 gm EXT Q12 [facility] Last Admin: 11/15/17 10:28 Dose: Not Given Lorazepam (Ativan) 0.5 mg IVP Q6H PRN; Protocol PRN Reason: Anxiety Last Admin: 11/07/17 22:00 Dose: 0.5 mg Morphine Sulfate (Morphine) 2 mg IVP Q4H PRN PRN Reason: Pain, moderate (4-7) Last Admin: 11/14/17 21:17 Dose: 2 mg Nicotine (Nicoderm Cq) 1 patch TD DAILY [facility] Last Admin: 11/15/17 10:28 Dose: Not Given Ondansetron HCl (Zofran Inj) 4 mg IVP Q6H PRN PRN Reason: Nausea/Vomiting Pantoprazole Sodium (Protonix Inj) 40 mg IVP DAILY [facility] Last Admin: 11/15/17 09:49 Dose: 40 mg Prednisone (Prednisone Tab) 40 mg PO DAILY [facility] Last Admin: 11/14/17 17:28 Dose: Not Given - Labs Labs: 11/15/17 07:00 11/15/17 07:00 PT 16.8 SECONDS (9.4-12.5) H 11/11/17 05:40 INR 1.45 (0.93-1.08) H 11/11/17 05:40 APTT 25.2 Seconds (25.1-36.5) 11/11/17 05:40 - Constitutional Appears: Non-toxic, No Acute Distress - Head Exam Head Exam: ATRAUMATIC, NORMOCEPHALIC - Eye Exam Eye Exam: EOMI, PERRL. absent: Conjunctival injection, Scleral icterus Pupil Exam: PERRL. absent: Fixed, Irregular, Unequal - ENT Exam ENT Exam: Mucous Membranes Moist - Neck Exam Neck Exam: Full ROM - Respiratory Exam Respiratory Exam: Clear to Ausculation Bilateral, NORMAL BREATHING PATTERN. absent: Accessory Muscle Use, Rales, Rhonchi, Wheezes Additional comments: + trach - GI/Abdominal Exam GI & Abdominal Exam: Soft, Normal Bowel Sounds. absent: Distended, Rigid, Mass , Organomegaly, Rebound Additional comments: + pig tail cath noted, covered in dressing, c/d/i. - Extremities Exam Extremities Exam: Normal Inspection. absent: Calf Tenderness, Pedal Edema - Back Exam Back Exam: NORMAL INSPECTION - Neurological Exam Neurological Exam: Alert, Awake, Oriented x3 - Psychiatric Exam Psychiatric exam: Normal Affect, Normal Mood - Skin Skin Exam: Dry, Normal Color, Warm Assessment and Plan - Assessment and Plan (Free Text) Assessment: 52 year old male with a past medical history significant for asthma, COPD, tobacco abuse, and alcohol abuse who was admitted for hypercapneic respiratory failure, hyponatremia, leukocytosis, and indeterminate troponins. Patient was noted to have a laryngeal mass that was biopsied and determined to be SCC. Patient is s/p trach and G tube. G tube leaking noted, exchanged with PIG tail catheter yesterday with Dr Berkowitz, start feeds as per surgery/IR recs: 1. Laryngeal Squamous Cell Carcinoma -CT Neck/Soft Tissue showed 2.7 x 2.0 x 4.5 cm left supraglottic soft tissue mass extending involving the left aryepiglottic fold, paraglottic fat, left thyroid cartilage with destruction of the posterior cartilage and extension beyond the margin of the thyroid cartilage as well as posterior extension into the hypopharynx with metastatic enlarged left level 1B to level 5 lymph nodes -CT Chest/Abdomen/Pelvis showed no overt masses or gross evidence of metastatic disease -Biopsy of laryngeal mass demonstrating SCC -S/P Trach and G-tube -Prednisone PO 40 daily. -Continue Duonebs Q4 scheduled and Q2 PRN -Continue BiPAP PRN -D5/Half NS with KCl at 60mls/hr until adequate PO/parenteral intake -NPO due to G tube leak -HOB elevated -Aspiration precautions -Radiation Oncology, ENT, Heme/Onc and Surgery consulted, all recommendations appreciated 2. Hyponatremia -Resolved -Nephro consulted, all recommendations appreciated 3. HTN - Labile readings. On prn hydralazine 10 mg IV q6 prn. -Hold Cozaar 50 mg daily, Clonidine TD -cont to monitor. 4. Iron Deficiency Anemia -Stable -Likely component of ACD in addition to EDDA -S/P five day course of Venofer -Continue to monitor with daily CBC's 5. History of Tobacco Abuse -Nicoderm CQ 21mg/day 6. History of Anxiety -Continue Ativan 0.5mg IVP Q6 PRN 7. Xeroderma -Continue Lac-Hydrin 12% Lotion -Continue Wound Care 8. Hypokalemia: -repleted. GI Prophylaxis: Protonix DVT Prophylaxis: Heparin <Francisco J Ren - Last Filed: 11/15/17 14:45> Objective - Vital Signs/Intake and Output Vital Signs (last 24 hours): Temp Pulse Resp BP Pulse Ox 98.2 F 92 H 18 112/69 95 11/15/17 07:30 11/15/17 07:30 11/15/17 07:30 11/15/17 07:30 11/15/17 07:30 Intake and Output: 11/15/17 11/15/17 06:59 18:59 Intake Total 720 Output Total 200 Balance 520 - Medications Medications: Current Medications Albuterol Sulfate (Albuterol 0.083% Inhal Snow (2.5 Mg/3 Ml) Ud) 2.5 mg IH Q2H PRN PRN Reason: Shortness of Breath Last Admin: 11/13/17 01:12 Dose: 2.5 mg Albuterol Sulfate (Albuterol 0.083% Inhal Snow (2.5 Mg/3 Ml) Ud) 2.5 mg INH [id number] [facility] Last Admin: 11/15/17 13:15 Dose: 2.5 mg Heparin Sodium (Porcine) (Heparin) 5,000 units SC Q12 [facility] PRN Reason: Protocol Last Admin: 11/15/17 09:49 Dose: 5,000 units Hydralazine HCl (Apresoline) 10 mg IVP Q6 PRN PRN Reason: Systolic Blood Pressure >180 Last Admin: 11/06/17 12:04 Dose: 10 mg Potassium Chloride 20 meq/ (Dextrose/Sodium Chloride) 1,010 mls @ 60 mls/hr IV .[id number] [facility] Last Admin: 11/15/17 05:27 Dose: 60 mls/hr Lactic Acid (Lac-Hydrin 12% Lotion (225 G)) 1 gm EXT Q12 [facility] Last Admin: 11/15/17 10:28 Dose: Not Given Lorazepam (Ativan) 0.5 mg IVP Q6H PRN; Protocol PRN Reason: Anxiety Last Admin: 11/07/17 22:00 Dose: 0.5 mg Morphine Sulfate (Morphine) 2 mg IVP Q4H PRN PRN Reason: Pain, moderate (4-7) Last Admin: 11/14/17 21:17 Dose: 2 mg Nicotine (Nicoderm Cq) 1 patch TD DAILY [facility] Last Admin: 11/15/17 10:28 Dose: Not Given Ondansetron HCl (Zofran Inj) 4 mg IVP Q6H PRN PRN Reason: Nausea/Vomiting Pantoprazole Sodium (Protonix Inj) 40 mg IVP DAILY [facility] Last Admin: 11/15/17 09:49 Dose: 40 mg Prednisone (Prednisone Tab) 40 mg PO DAILY [facility] Last Admin: 11/15/17 11:46 Dose: Not Given - Labs Labs: 11/15/17 07:00 11/15/17 07:00 PT 16.8 SECONDS (9.4-12.5) H 11/11/17 05:40 INR 1.45 (0.93-1.08) H 11/11/17 05:40 APTT 25.2 Seconds (25.1-36.5) 11/11/17 05:40 Attending/Attestation - Attestation I have personally seen and examined this patient.: Yes I have fully participated in the care of the patient.: Yes I have reviewed all pertinent clinical information, including history, physical exam and plan: Yes Notes (Text): 11/15/17 14:40 Patient was seen and examined with medical insurance collector. Family is at bed side.Agreed with assessment and plan. 52 year old male with past medical history of COPD and alcohol abuse was admitted with with hypercapnic respiratory failure s/p intubation. CT neck showed large supraglottic soft tissue mass with metastatic lymph nodes. CT chest/abd/pelvis was negative for overt mass or lymphadenopathy. He is s/p tracheostomy and biopsy. Pathology result confirms squamous cell carcinoma.Patient is SP PEG tube re positioning by IR yesterday.We will start tube feeding today .Patient is on room air,he is afebrile, has Leukocytosis today .This is likely reactive after surgery, also on steroid.We will monitor. . Hyponatremia has resolved. Management plan was discussed in detail with patient and family who is at bed side. Education was provided. 11/15/17 14:43 11/15/17 14:45
[2017-11-15] MEDS ORDERED: POLYETHYLENE GLYCOL 3350 17 GM/Dose PACKET PO ONE (17:00)
--- NOTE | 2017-11-15 17:06 | CP.PCM.PN ---
Subjective - Date & Time of Evaluation Date of Evaluation: 11/15/17 Time of Evaluation: 16:20 - Subjective Subjective: Patient seen and examined at bedside after patient complained of fullness and pain with the initiation of tube feeds. Per nursing, flushes and tube feeds were flowing without any difficulty for 1 hour but she had not check for residuals. Patient denies any nausea but complains of constipation for his entire hospitalization. Reports he is passing a small amount of gas today. Objective - Vital Signs/Intake and Output Vital Signs (last 24 hours): Temp Pulse Resp BP Pulse Ox 98.2 F 92 H 18 112/69 95 11/15/17 07:30 11/15/17 07:30 11/15/17 07:30 11/15/17 07:30 11/15/17 07:30 Intake and Output: 11/15/17 11/15/17 06:59 18:59 Intake Total 720 Output Total 200 225 Balance 520 -225 - Medications Medications: Current Medications Albuterol Sulfate (Albuterol 0.083% Inhal Snow (2.5 Mg/3 Ml) Ud) 2.5 mg IH Q2H PRN PRN Reason: Shortness of Breath Last Admin: 11/13/17 01:12 Dose: 2.5 mg Albuterol Sulfate (Albuterol 0.083% Inhal Snow (2.5 Mg/3 Ml) Ud) 2.5 mg INH [id number] [facility] Last Admin: 11/15/17 13:15 Dose: 2.5 mg Heparin Sodium (Porcine) (Heparin) 5,000 units SC Q12 [facility] PRN Reason: Protocol Last Admin: 11/15/17 09:49 Dose: 5,000 units Hydralazine HCl (Apresoline) 10 mg IVP Q6 PRN PRN Reason: Systolic Blood Pressure >180 Last Admin: 11/06/17 12:04 Dose: 10 mg Potassium Chloride 20 meq/ (Dextrose/Sodium Chloride) 1,010 mls @ 60 mls/hr IV .[id number] [facility] Last Admin: 11/15/17 05:27 Dose: 60 mls/hr Lactic Acid (Lac-Hydrin 12% Lotion (225 G)) 1 gm EXT Q12 [facility] Last Admin: 11/15/17 10:28 Dose: Not Given Lorazepam (Ativan) 0.5 mg IVP Q6H PRN; Protocol PRN Reason: Anxiety Last Admin: 11/07/17 22:00 Dose: 0.5 mg Morphine Sulfate (Morphine) 2 mg IVP Q4H PRN PRN Reason: Pain, moderate (4-7) Last Admin: 11/14/17 21:17 Dose: 2 mg Nicotine (Nicoderm Cq) 1 patch TD DAILY [facility] Last Admin: 11/15/17 10:28 Dose: Not Given Ondansetron HCl (Zofran Inj) 4 mg IVP Q6H PRN PRN Reason: Nausea/Vomiting Pantoprazole Sodium (Protonix Inj) 40 mg IVP DAILY [facility] Last Admin: 11/15/17 09:49 Dose: 40 mg Prednisone (Prednisone Tab) 40 mg PO DAILY [facility] Last Admin: 11/15/17 11:46 Dose: Not Given - Labs Labs: 11/15/17 07:00 11/15/17 07:00 PT 16.8 SECONDS (9.4-12.5) H 11/11/17 05:40 INR 1.45 (0.93-1.08) H 11/11/17 05:40 APTT 25.2 Seconds (25.1-36.5) 11/11/17 05:40 - Constitutional Appears: Non-toxic, No Acute Distress - Head Exam Head Exam: ATRAUMATIC, NORMOCEPHALIC - Eye Exam Eye Exam: Normal appearance. absent: Conjunctival injection, Scleral icterus Additional comments: tracheostomy in place - ENT Exam ENT Exam: Mucous Membranes Moist, Normal Oropharynx - Respiratory Exam Respiratory Exam: NORMAL BREATHING PATTERN. absent: Accessory Muscle Use, Respiratory Distress Additional comments: tracheostomy tube in place - Cardiovascular Exam Cardiovascular Exam: RRR - GI/Abdominal Exam GI & Abdominal Exam: Soft, Tenderness (mild tenderness around the gastrostomy tube). absent: Distended, Rebound - Extremities Exam Extremities Exam: absent: Calf Tenderness, Pedal Edema, Tenderness - Neurological Exam Neurological Exam: Alert, Awake, Oriented x3 - Psychiatric Exam Psychiatric exam: Anxious, Normal Affect - Skin Skin Exam: Dry, Intact, Normal Color, Warm Assessment and Plan - Assessment and Plan (Free Text) Assessment: 52 y/o male with posterior pharyngeal mass POD#4 s/p open gastrostomy tube placement and POD#1 s/p exchange of gastrostomy tube by IR Plan: -trophic feeds through the gastrostomy tube--only 10cc's/hr -PT/OT -no further surgical intervention at this time -abdominal incision eliud to be removed if skin well healed -If patient still complains of fullness or pain, will hold tube feeds until the AM -bowel regimen for constipation Further recs per Dr. Jorge Tovar, PGY2
[2017-11-16] MEDS: Albuterol 0.083% Inhal Sol (2.5 mg/3 mL) UD INH SCH ×4 (02:18→20:50)
[2017-11-16 07:23] LABS: BASO # 0.01 K/mm3 (0.0-2.0); BASO % 0.1 % (0.0-3.0); EOS # 0.1 (0.0-0.7); EOS % 0.7 % (1.5-5.0); GRAN # 11.23 (1.4-6.5); GRAN % 84.2 % (50.0-68.0); HEMOGLOBIN 11.3 g/dL (14.0-18.0); LYMPH # 0.9 (1.2-3.4); LYMPH % 6.7 % (22.0-35.0); MEAN CELL VOLUME 88.7 fl (80.0-105.0); MEAN CORPUSCULAR HGB CONC 32.8 g/dl (31.0-37.0); MEAN PLATELET VOLUME 10.2 fl (7.0-11.0); MONO # 1.1 (0.1-0.6); MONO % 8.3 % (1.0-6.0); RBC 3.89 10^6/uL (3.5-6.1); RED CELL DISTRIBUTION WIDTH 13.1 % (11.5-14.5); WHITE BLOOD COUNT 13.3 10^3/ul (4.5-11.0)
[2017-11-16 08:24] LABS: ALBUMIN 3.1 g/dL (3.0-4.8); ALT/SGPT 36 U/L (7-56); AST/SGOT 24 U/L (17-59); BLOOD UREA NITROGEN 8 mg/dL (7-21); CALCIUM 9.1 mg/dL (8.4-10.5); GFR AFRICAN-AMERICAN > 60; GFR NON-AFRICAN AMERICAN > 60; MAGNESIUM 1.8 mg/dL (1.7-2.2)
--- NOTE | 2017-11-16 09:54 | CP.PCM.PN ---
<Deidra Fox - Last Filed: 11/16/17 09:58> Subjective - Date & Time of Evaluation Date of Evaluation: 11/16/17 Time of Evaluation: 09:50 - Subjective Subjective: Deidra Fox, PGY1, Medicine Progress Note for Dr Ren: Patient seen and examined at bedside. No acute events overnight. Denies fever, chills, n/v, sob, leg swelling, abdominal pain. Objective - Vital Signs/Intake and Output Vital Signs (last 24 hours): Temp Pulse Resp BP Pulse Ox 99 F 79 20 92/55 L 91 L 11/16/17 07:00 11/16/17 07:00 11/16/17 07:00 11/16/17 07:00 11/16/17 07:00 - Medications Medications: Current Medications Albuterol Sulfate (Albuterol 0.083% Inhal Snow (2.5 Mg/3 Ml) Ud) 2.5 mg IH Q2H PRN PRN Reason: Shortness of Breath Last Admin: 11/13/17 01:12 Dose: 2.5 mg Albuterol Sulfate (Albuterol 0.083% Inhal Snow (2.5 Mg/3 Ml) Ud) 2.5 mg INH [id number] [facility] Last Admin: 11/16/17 08:04 Dose: 2.5 mg Docusate Sodium (Colace Liquid) 100 mg PO TID [facility] Last Admin: 11/15/17 17:57 Dose: 100 mg Heparin Sodium (Porcine) (Heparin) 5,000 units SC Q12 [facility] PRN Reason: Protocol Last Admin: 11/15/17 22:03 Dose: 5,000 units Hydralazine HCl (Apresoline) 10 mg IVP Q6 PRN PRN Reason: Systolic Blood Pressure >180 Last Admin: 11/06/17 12:04 Dose: 10 mg Potassium Chloride 20 meq/ (Dextrose/Sodium Chloride) 1,010 mls @ 60 mls/hr IV .[id number] [facility] Last Admin: 11/15/17 05:27 Dose: 60 mls/hr Lactic Acid (Lac-Hydrin 12% Lotion (225 G)) 1 gm EXT Q12 [facility] Last Admin: 11/15/17 21:26 Dose: Not Given Lorazepam (Ativan) 0.5 mg IVP Q6H PRN; Protocol PRN Reason: Anxiety Last Admin: 11/07/17 22:00 Dose: 0.5 mg Morphine Sulfate (Morphine) 2 mg IVP Q4H PRN PRN Reason: Pain, moderate (4-7) Last Admin: 11/14/17 21:17 Dose: 2 mg Nicotine (Nicoderm Cq) 1 patch TD DAILY [facility] Last Admin: 11/15/17 10:28 Dose: Not Given Ondansetron HCl (Zofran Inj) 4 mg IVP Q6H PRN PRN Reason: Nausea/Vomiting Pantoprazole Sodium (Protonix Inj) 40 mg IVP DAILY [facility] Last Admin: 11/15/17 09:49 Dose: 40 mg Prednisone (Prednisone Tab) 40 mg PO DAILY [facility] Last Admin: 11/15/17 11:46 Dose: Not Given Sennosides (Senokot Tab) 8.6 mg PO DAILY [facility] Last Admin: 11/15/17 17:57 Dose: 8.6 mg - Labs Labs: 11/16/17 07:00 11/16/17 07:00 PT 16.8 SECONDS (9.4-12.5) H 11/11/17 05:40 INR 1.45 (0.93-1.08) H 11/11/17 05:40 APTT 25.2 Seconds (25.1-36.5) 11/11/17 05:40 - Additional Findings Additional findings: - Constitutional Appears: Non-toxic, No Acute Distress - Head Exam Head Exam: ATRAUMATIC, NORMOCEPHALIC - Eye Exam Eye Exam: EOMI, PERRL. absent: Conjunctival injection, Scleral icterus Pupil Exam: PERRL. absent: Fixed, Irregular, Unequal - ENT Exam ENT Exam: Mucous Membranes Moist - Neck Exam Neck Exam: Full ROM - Respiratory Exam Respiratory Exam: Clear to Ausculation Bilateral, NORMAL BREATHING PATTERN. absent: Accessory Muscle Use, Rales, Rhonchi, Wheezes Additional comments: + trach - GI/Abdominal Exam GI & Abdominal Exam: Soft, Normal Bowel Sounds. absent: Distended, Rigid, Mass , Organomegaly, Rebound Additional comments: + pig tail cath noted, connected to feedings - Extremities Exam Extremities Exam: Normal Inspection. absent: Calf Tenderness, Pedal Edema - Back Exam Back Exam: NORMAL INSPECTION - Neurological Exam Neurological Exam: Alert, Awake, Oriented x3 - Psychiatric Exam Psychiatric exam: Normal Affect, Normal Mood - Skin Skin Exam: Dry, Normal Color, Warm Assessment and Plan - Assessment and Plan (Free Text) Assessment: 52 year old male with a past medical history significant for asthma, COPD, tobacco abuse, and alcohol abuse who was admitted for hypercapneic respiratory failure, hyponatremia, leukocytosis, and indeterminate troponins. Patient was noted to have a laryngeal mass that was biopsied and determined to be SCC. Patient is s/p trach and G tube. Pt started on tube feeds last night, tolerating well: 1. Laryngeal Squamous Cell Carcinoma -CT Neck/Soft Tissue showed 2.7 x 2.0 x 4.5 cm left supraglottic soft tissue mass extending involving the left aryepiglottic fold, paraglottic fat, left thyroid cartilage with destruction of the posterior cartilage and extension beyond the margin of the thyroid cartilage as well as posterior extension into the hypopharynx with metastatic enlarged left level 1B to level 5 lymph nodes -CT Chest/Abdomen/Pelvis showed no overt masses or gross evidence of metastatic disease -Biopsy of laryngeal mass demonstrating SCC -S/P Trach and G-tube -Prednisone PO 40 daily. -Continue Duonebs Q4 scheduled and Q2 PRN -Continue BiPAP PRN -Jevity 1.2 - tube feeds per surgery -HOB elevated -Aspiration precautions -Radiation Oncology, ENT, Heme/Onc and Surgery consulted, all recommendations appreciated 2. Hyponatremia -Resolved -Nephro consulted, all recommendations appreciated 3. HTN - Labile readings. On prn hydralazine 10 mg IV q6 prn. -Hold Cozaar 50 mg daily, Clonidine TD -cont to monitor. 4. Iron Deficiency Anemia -Stable -Likely component of ACD in addition to EDDA -S/P five day course of Venofer -Continue to monitor with daily CBC's 5. History of Tobacco Abuse -Nicoderm CQ 21mg/day 6. History of Anxiety -Continue Ativan 0.5mg IVP Q6 PRN 7. Xeroderma -Continue Lac-Hydrin 12% Lotion -Continue Wound Care 8. Hypokalemia, resolved: -repleted. GI Prophylaxis: Protonix DVT Prophylaxis: Heparin Discussed with Dr Ren. <Francisco J Ren - Last Filed: 11/16/17 13:05> Objective - Vital Signs/Intake and Output Vital Signs (last 24 hours): Temp Pulse Resp BP Pulse Ox 99 F 79 20 92/55 L 91 L 11/16/17 07:00 11/16/17 07:00 11/16/17 07:00 11/16/17 07:00 11/16/17 07:00 - Medications Medications: Current Medications Albuterol Sulfate (Albuterol 0.083% Inhal Snow (2.5 Mg/3 Ml) Ud) 2.5 mg IH Q2H PRN PRN Reason: Shortness of Breath Last Admin: 11/13/17 01:12 Dose: 2.5 mg Albuterol Sulfate (Albuterol 0.083% Inhal Snow (2.5 Mg/3 Ml) Ud) 2.5 mg INH [id number] [facility] Last Admin: 11/16/17 08:04 Dose: 2.5 mg Docusate Sodium (Colace Liquid) 100 mg PO TID [facility] Last Admin: 11/16/17 09:57 Dose: 100 mg Heparin Sodium (Porcine) (Heparin) 5,000 units SC Q12 [facility] PRN Reason: Protocol Last Admin: 11/16/17 10:17 Dose: Not Given Hydralazine HCl (Apresoline) 10 mg IVP Q6 PRN PRN Reason: Systolic Blood Pressure >180 Last Admin: 11/06/17 12:04 Dose: 10 mg Potassium Chloride 20 meq/ (Dextrose/Sodium Chloride) 1,010 mls @ 60 mls/hr IV .[id number] [facility] Last Admin: 11/15/17 05:27 Dose: 60 mls/hr Lactic Acid (Lac-Hydrin 12% Lotion (225 G)) 1 gm EXT Q12 [facility] Last Admin: 11/16/17 09:59 Dose: Not Given Lorazepam (Ativan) 0.5 mg IVP Q6H PRN; Protocol PRN Reason: Anxiety Last Admin: 11/07/17 22:00 Dose: 0.5 mg Morphine Sulfate (Morphine) 2 mg IVP Q4H PRN PRN Reason: Pain, moderate (4-7) Last Admin: 11/14/17 21:17 Dose: 2 mg Nicotine (Nicoderm Cq) 1 patch TD DAILY [facility] Last Admin: 11/16/17 10:18 Dose: Not Given Ondansetron HCl (Zofran Inj) 4 mg IVP Q6H PRN PRN Reason: Nausea/Vomiting Pantoprazole Sodium (Protonix Inj) 40 mg IVP DAILY [facility] Last Admin: 11/16/17 09:58 Dose: 40 mg Prednisone (Prednisone Tab) 40 mg PO DAILY [facility] Last Admin: 11/16/17 09:58 Dose: 40 mg Sennosides (Senokot Tab) 8.6 mg PO DAILY [facility] Last Admin: 11/16/17 09:58 Dose: 8.6 mg - Labs Labs: 11/16/17 07:00 11/16/17 07:00 PT 16.8 SECONDS (9.4-12.5) H 11/11/17 05:40 INR 1.45 (0.93-1.08) H 11/11/17 05:40 APTT 25.2 Seconds (25.1-36.5) 11/11/17 05:40 Attending/Attestation - Attestation I have personally seen and examined this patient.: Yes I have fully participated in the care of the patient.: Yes I have reviewed all pertinent clinical information, including history, physical exam and plan: Yes Notes (Text): 11/16/17 13:05 Patient was seen and examined with paramedical aide. Agreed with assessment and plan. Management plan was discussed in detail with patient. Education was provided.
[2017-11-16] MEDS: Ammonium Lactate 12% Lotion (225 g) EXT SCH ×2 (09:59→22:04)
--- NOTE | 2017-11-16 10:04 | CP.PCM.PN ---
Subjective - Date & Time of Evaluation Date of Evaluation: 11/16/17 Time of Evaluation: 07:40 - Subjective Subjective: Surgery progress note. Dr. Patel Pt seen and examined at bedside. No acute events overnight. No N/V/D. No F/C. Pigtail in place at Gastrostomy site. No new complaints. No CP/SOB. Objective - Vital Signs/Intake and Output Vital Signs (last 24 hours): Temp Pulse Resp BP Pulse Ox 99 F 79 20 92/55 L 91 L 11/16/17 07:00 11/16/17 07:00 11/16/17 07:00 11/16/17 07:00 11/16/17 07:00 - Medications Medications: Current Medications Albuterol Sulfate (Albuterol 0.083% Inhal Snow (2.5 Mg/3 Ml) Ud) 2.5 mg IH Q2H PRN PRN Reason: Shortness of Breath Last Admin: 11/13/17 01:12 Dose: 2.5 mg Albuterol Sulfate (Albuterol 0.083% Inhal Snow (2.5 Mg/3 Ml) Ud) 2.5 mg INH [id number] [facility] Last Admin: 11/16/17 08:04 Dose: 2.5 mg Docusate Sodium (Colace Liquid) 100 mg PO TID [facility] Last Admin: 11/15/17 17:57 Dose: 100 mg Heparin Sodium (Porcine) (Heparin) 5,000 units SC Q12 [facility] PRN Reason: Protocol Last Admin: 11/15/17 22:03 Dose: 5,000 units Hydralazine HCl (Apresoline) 10 mg IVP Q6 PRN PRN Reason: Systolic Blood Pressure >180 Last Admin: 11/06/17 12:04 Dose: 10 mg Potassium Chloride 20 meq/ (Dextrose/Sodium Chloride) 1,010 mls @ 60 mls/hr IV .[id number] [facility] Last Admin: 11/15/17 05:27 Dose: 60 mls/hr Lactic Acid (Lac-Hydrin 12% Lotion (225 G)) 1 gm EXT Q12 [facility] Last Admin: 11/15/17 21:26 Dose: Not Given Lorazepam (Ativan) 0.5 mg IVP Q6H PRN; Protocol PRN Reason: Anxiety Last Admin: 11/07/17 22:00 Dose: 0.5 mg Morphine Sulfate (Morphine) 2 mg IVP Q4H PRN PRN Reason: Pain, moderate (4-7) Last Admin: 11/14/17 21:17 Dose: 2 mg Nicotine (Nicoderm Cq) 1 patch TD DAILY [facility] Last Admin: 11/15/17 10:28 Dose: Not Given Ondansetron HCl (Zofran Inj) 4 mg IVP Q6H PRN PRN Reason: Nausea/Vomiting Pantoprazole Sodium (Protonix Inj) 40 mg IVP DAILY [facility] Last Admin: 11/15/17 09:49 Dose: 40 mg Prednisone (Prednisone Tab) 40 mg PO DAILY [facility] Last Admin: 11/15/17 11:46 Dose: Not Given Sennosides (Senokot Tab) 8.6 mg PO DAILY [facility] Last Admin: 11/15/17 17:57 Dose: 8.6 mg - Labs Labs: 11/16/17 07:00 11/16/17 07:00 PT 16.8 SECONDS (9.4-12.5) H 11/11/17 05:40 INR 1.45 (0.93-1.08) H 11/11/17 05:40 APTT 25.2 Seconds (25.1-36.5) 11/11/17 05:40 - Constitutional Appears: Non-toxic, No Acute Distress - Head Exam Head Exam: ATRAUMATIC, NORMAL INSPECTION, NORMOCEPHALIC - Eye Exam Eye Exam: EOMI, Normal appearance - ENT Exam Additional comments: Trach in place. On trach collar with humidified O2 currently - Respiratory Exam Respiratory Exam: NORMAL BREATHING PATTERN. absent: Accessory Muscle Use, Respiratory Distress - Cardiovascular Exam Cardiovascular Exam: absent: JVD - GI/Abdominal Exam GI & Abdominal Exam: Soft. absent: Distended, Firm, Guarding, Rigid, Tenderness , Rebound Additional comments: Gastrostomy tube site with IR placed pigtail catheter in place, no leaks noted. No tenderness to palpation. - Extremities Exam Extremities Exam: Normal Inspection. absent: Calf Tenderness - Neurological Exam Neurological Exam: Alert, Awake, Oriented x3 - Psychiatric Exam Psychiatric exam: Normal Affect, Normal Mood - Skin Skin Exam: Dry, Intact, Normal Color, Warm Assessment and Plan - Assessment and Plan (Free Text) Assessment: 52yo M with Posterior Pharyngeal Mass. S/P Donna gastrostomy and exchange by IR due to malfunction on 11/14. Plan: - Tube Feeds: may increase by 10cc/hr until goal - PT/OT eval and treat - Abdominal incision eliud to be removed - No further surgical intervention warranted Further recs per Dr. Jorge Cohen PGY1 surgery pager: [phone]
[2017-11-16] MEDS: Potassium Chloride 20 MEQ in Dextrose 5%/0.45% NS 1,000 ML IV SCH (22:05)
[2017-11-17] MEDS: Albuterol 0.083% Inhal Sol (2.5 mg/3 mL) UD INH SCH ×5 (01:09→20:17)
[2017-11-17 08:07] VITALS: O2SAT 95
--- NOTE | 2017-11-17 09:51 | CP.PCM.PN ---
Subjective - Date & Time of Evaluation Date of Evaluation: 11/17/17 Time of Evaluation: 09:48 - Subjective Subjective: Surgery: Dr. Patel Patient doing well. Tolerating tube feeds. Denies n/v/f/c. + BM. Objective - Vital Signs/Intake and Output Vital Signs (last 24 hours): Temp Pulse Resp BP Pulse Ox 98 F 80 20 130/81 95 11/17/17 00:00 11/17/17 00:00 11/17/17 00:00 11/17/17 00:00 11/17/17 00:00 Intake and Output: 11/17/17 11/17/17 06:59 18:59 Intake Total 0 Output Total 3 Balance -3 - Medications Medications: Current Medications Albuterol Sulfate (Albuterol 0.083% Inhal Snow (2.5 Mg/3 Ml) Ud) 2.5 mg IH Q2H PRN PRN Reason: Shortness of Breath Last Admin: 11/13/17 01:12 Dose: 2.5 mg Albuterol Sulfate (Albuterol 0.083% Inhal Snow (2.5 Mg/3 Ml) Ud) 2.5 mg INH [id number] [facility] Last Admin: 11/17/17 08:45 Dose: 2.5 mg Docusate Sodium (Colace Liquid) 100 mg PO TID [facility] Last Admin: 11/16/17 17:41 Dose: 100 mg Heparin Sodium (Porcine) (Heparin) 5,000 units SC Q12 [facility] PRN Reason: Protocol Last Admin: 11/16/17 22:10 Dose: Not Given Hydralazine HCl (Apresoline) 10 mg IVP Q6 PRN PRN Reason: Systolic Blood Pressure >180 Last Admin: 11/06/17 12:04 Dose: 10 mg Potassium Chloride 20 meq/ (Dextrose/Sodium Chloride) 1,010 mls @ 60 mls/hr IV .[id number] [facility] Last Admin: 11/16/17 22:05 Dose: 60 mls/hr Lactic Acid (Lac-Hydrin 12% Lotion (225 G)) 1 gm EXT Q12 [facility] Last Admin: 11/16/17 22:04 Dose: 1 tcp Lorazepam (Ativan) 0.5 mg IVP Q6H PRN; Protocol PRN Reason: Anxiety Last Admin: 11/07/17 22:00 Dose: 0.5 mg Morphine Sulfate (Morphine) 2 mg IVP Q4H PRN PRN Reason: Pain, moderate (4-7) Last Admin: 11/14/17 21:17 Dose: 2 mg Nicotine (Nicoderm Cq) 1 patch TD DAILY [facility] Last Admin: 11/16/17 10:18 Dose: Not Given Ondansetron HCl (Zofran Inj) 4 mg IVP Q6H PRN PRN Reason: Nausea/Vomiting Pantoprazole Sodium (Protonix Inj) 40 mg IVP DAILY [facility] Last Admin: 11/16/17 09:58 Dose: 40 mg Prednisone (Prednisone Tab) 40 mg PO DAILY [facility] Last Admin: 11/16/17 09:58 Dose: 40 mg Sennosides (Senokot Tab) 8.6 mg PO DAILY [facility] Last Admin: 11/16/17 09:58 Dose: 8.6 mg - Labs Labs: 11/16/17 07:00 11/16/17 07:00 PT 16.8 SECONDS (9.4-12.5) H 11/11/17 05:40 INR 1.45 (0.93-1.08) H 11/11/17 05:40 APTT 25.2 Seconds (25.1-36.5) 11/11/17 05:40 - Constitutional Appears: Non-toxic, Cachectic - Head Exam Head Exam: ATRAUMATIC, NORMOCEPHALIC - Eye Exam Eye Exam: EOMI, Normal appearance - ENT Exam ENT Exam: Mucous Membranes Moist - Respiratory Exam Respiratory Exam: NORMAL BREATHING PATTERN Additional comments: trach - Cardiovascular Exam Cardiovascular Exam: REGULAR RHYTHM. absent: Tachycardia - GI/Abdominal Exam GI & Abdominal Exam: Soft. absent: Distended, Guarding, Tenderness, Rebound Additional comments: pigtail Gtube in place, suture lose. Dry dressing placed for support. Assessment and Plan - Assessment and Plan (Free Text) Assessment: 52 y/o male s/p open G tube placement w/ dislodgement requiring IR replacement pigtail tube Plan: -increase tube feeds to goal -once tolerating goal tube feeds for 24 hours can switch to bolus feedings -keep tension off of pigtail catheter with dressing support -further recs per Dr. Jorge Garcia PGY3
--- NOTE | 2017-11-17 10:08 | CP.PCM.PN ---
<Deidra Fox - Last Filed: 11/17/17 10:03> Subjective - Date & Time of Evaluation Date of Evaluation: 11/17/17 Time of Evaluation: 10:03 - Subjective Subjective: Deidra Fox, PGY1, Medicine Progress Note for Dr Ren: Patient seen and examined at bedside. No acute events overnight. Denies fever, chills, n/v, sob, leg swelling, abdominal pain. Pt tolerating tube feeds well with no residuals, ambulating in the hallway. Objective - Vital Signs/Intake and Output Vital Signs (last 24 hours): Temp Pulse Resp BP Pulse Ox 98 F 80 20 130/81 95 11/17/17 00:00 11/17/17 00:00 11/17/17 00:00 11/17/17 00:00 11/17/17 00:00 Intake and Output: 11/17/17 11/17/17 06:59 18:59 Intake Total 0 Output Total 3 Balance -3 - Medications Medications: Current Medications Albuterol Sulfate (Albuterol 0.083% Inhal Snow (2.5 Mg/3 Ml) Ud) 2.5 mg IH Q2H PRN PRN Reason: Shortness of Breath Last Admin: 11/13/17 01:12 Dose: 2.5 mg Albuterol Sulfate (Albuterol 0.083% Inhal Snow (2.5 Mg/3 Ml) Ud) 2.5 mg INH [id number] [facility] Last Admin: 11/17/17 08:45 Dose: 2.5 mg Docusate Sodium (Colace Liquid) 100 mg PO TID [facility] Last Admin: 11/16/17 17:41 Dose: 100 mg Heparin Sodium (Porcine) (Heparin) 5,000 units SC Q12 [facility] PRN Reason: Protocol Last Admin: 11/16/17 22:10 Dose: Not Given Hydralazine HCl (Apresoline) 10 mg IVP Q6 PRN PRN Reason: Systolic Blood Pressure >180 Last Admin: 11/06/17 12:04 Dose: 10 mg Potassium Chloride 20 meq/ (Dextrose/Sodium Chloride) 1,010 mls @ 60 mls/hr IV .[id number] [facility] Last Admin: 11/16/17 22:05 Dose: 60 mls/hr Lactic Acid (Lac-Hydrin 12% Lotion (225 G)) 1 gm EXT Q12 [facility] Last Admin: 11/16/17 22:04 Dose: 1 tcp Lorazepam (Ativan) 0.5 mg IVP Q6H PRN; Protocol PRN Reason: Anxiety Last Admin: 11/07/17 22:00 Dose: 0.5 mg Morphine Sulfate (Morphine) 2 mg IVP Q4H PRN PRN Reason: Pain, moderate (4-7) Last Admin: 11/14/17 21:17 Dose: 2 mg Nicotine (Nicoderm Cq) 1 patch TD DAILY [facility] Last Admin: 11/16/17 10:18 Dose: Not Given Ondansetron HCl (Zofran Inj) 4 mg IVP Q6H PRN PRN Reason: Nausea/Vomiting Pantoprazole Sodium (Protonix Inj) 40 mg IVP DAILY [facility] Last Admin: 11/16/17 09:58 Dose: 40 mg Prednisone (Prednisone Tab) 40 mg PO DAILY [facility] Last Admin: 11/16/17 09:58 Dose: 40 mg Sennosides (Senokot Tab) 8.6 mg PO DAILY [facility] Last Admin: 11/16/17 09:58 Dose: 8.6 mg - Labs Labs: 11/16/17 07:00 11/16/17 07:00 PT 16.8 SECONDS (9.4-12.5) H 11/11/17 05:40 INR 1.45 (0.93-1.08) H 11/11/17 05:40 APTT 25.2 Seconds (25.1-36.5) 11/11/17 05:40 - Constitutional Appears: Well, Non-toxic, No Acute Distress - Head Exam Head Exam: ATRAUMATIC, NORMOCEPHALIC - Eye Exam Eye Exam: EOMI, PERRL. absent: Conjunctival injection, Nystagmus, Scleral icterus Pupil Exam: NORMAL ACCOMODATION, PERRL. absent: Fixed, Irregular, Unequal - ENT Exam ENT Exam: Mucous Membranes Moist Additional comments: + trach in place - Neck Exam Neck Exam: Full ROM - Respiratory Exam Respiratory Exam: Clear to Ausculation Bilateral, NORMAL BREATHING PATTERN. absent: Accessory Muscle Use, Chest Wall Tenderness, Decreased Breath Sounds, Rales, Rhonchi, Wheezes, Respiratory Distress, Stridor - Cardiovascular Exam Cardiovascular Exam: RRR, +S1, +S2. absent: Murmur - GI/Abdominal Exam GI & Abdominal Exam: Soft, Normal Bowel Sounds. absent: Distended, Firm, Guarding, Rigid, Tenderness, Mass, Organomegaly, Rebound Additional comments: + feeding tube in place - Extremities Exam Extremities Exam: Normal Inspection. absent: Calf Tenderness, Pedal Edema - Neurological Exam Neurological Exam: Alert, Awake, Normal Gait, Oriented x3 - Psychiatric Exam Psychiatric exam: Normal Affect, Normal Mood - Skin Skin Exam: Dry, Normal Color, Warm Assessment and Plan - Assessment and Plan (Free Text) Assessment: 52 year old male with a past medical history significant for asthma, COPD, tobacco abuse, and alcohol abuse who was admitted for hypercapneic respiratory failure, hyponatremia, leukocytosis, and indeterminate troponins. Patient was noted to have a laryngeal mass that was biopsied and determined to be SCC. Patient is s/p trach and G tube. Pt tolerating tube feeds well with no residuals , will increase to goal rate as per surgery. Switch to bolus feeds tomorrow: 1. Laryngeal Squamous Cell Carcinoma -CT Neck/Soft Tissue showed 2.7 x 2.0 x 4.5 cm left supraglottic soft tissue mass extending involving the left aryepiglottic fold, paraglottic fat, left thyroid cartilage with destruction of the posterior cartilage and extension beyond the margin of the thyroid cartilage as well as posterior extension into the hypopharynx with metastatic enlarged left level 1B to level 5 lymph nodes -CT Chest/Abdomen/Pelvis showed no overt masses or gross evidence of metastatic disease -Biopsy of laryngeal mass demonstrating SCC -S/P Trach and G-tube -Prednisone PO 40 daily. -Continue Duonebs Q4 scheduled and Q2 PRN -Continue BiPAP PRN -Jevity 1.2 - tube feeds per surgery -HOB elevated -Aspiration precautions -Radiation Oncology, ENT, Heme/Onc and Surgery consulted, all recommendations appreciated 2. Hyponatremia 2/2 dehydration -Resolved -Nephro consulted, all recommendations appreciated 3. HTN -On prn hydralazine 10 mg IV q6 prn. -Hold Cozaar 50 mg daily, Clonidine TD -cont to monitor. 4. Iron Deficiency Anemia -Stable -Likely component of ACD in addition to EDDA -S/P five day course of Venofer -Continue to monitor with daily CBC's 5. History of Tobacco Abuse -Nicoderm CQ 21mg/day 6. History of Anxiety -Continue Ativan 0.5mg IVP Q6 PRN 7. Xeroderma -Continue Lac-Hydrin 12% Lotion -Continue Wound Care 8. Hypokalemia, resolved: -repleted. GI Prophylaxis: Protonix DVT Prophylaxis: Heparin Dispo: discharge home tomorrow. Brother (Salomon) involved well with patient's care. Case seen and discussed with Dr Ren. <Francisco J Ren - Last Filed: 11/17/17 10:22> Objective - Vital Signs/Intake and Output Vital Signs (last 24 hours): Temp Pulse Resp BP Pulse Ox 98 F 80 20 130/81 95 11/17/17 00:00 11/17/17 00:00 11/17/17 00:00 11/17/17 00:00 11/17/17 00:00 Intake and Output: 11/17/17 11/17/17 06:59 18:59 Intake Total 0 Output Total 3 Balance -3 - Medications Medications: Current Medications Albuterol Sulfate (Albuterol 0.083% Inhal Snow (2.5 Mg/3 Ml) Ud) 2.5 mg IH Q2H PRN PRN Reason: Shortness of Breath Last Admin: 11/13/17 01:12 Dose: 2.5 mg Albuterol Sulfate (Albuterol 0.083% Inhal Snow (2.5 Mg/3 Ml) Ud) 2.5 mg INH [id number] [facility] Last Admin: 11/17/17 08:45 Dose: 2.5 mg Docusate Sodium (Colace Liquid) 100 mg PO TID [facility] Last Admin: 11/16/17 17:41 Dose: 100 mg Heparin Sodium (Porcine) (Heparin) 5,000 units SC Q12 [facility] PRN Reason: Protocol Last Admin: 11/16/17 22:10 Dose: Not Given Hydralazine HCl (Apresoline) 10 mg IVP Q6 PRN PRN Reason: Systolic Blood Pressure >180 Last Admin: 11/06/17 12:04 Dose: 10 mg Potassium Chloride 20 meq/ (Dextrose/Sodium Chloride) 1,010 mls @ 60 mls/hr IV .[id number] [facility] Last Admin: 11/16/17 22:05 Dose: 60 mls/hr Lactic Acid (Lac-Hydrin 12% Lotion (225 G)) 1 gm EXT Q12 [facility] Last Admin: 11/16/17 22:04 Dose: 1 tcp Lorazepam (Ativan) 0.5 mg IVP Q6H PRN; Protocol PRN Reason: Anxiety Last Admin: 11/07/17 22:00 Dose: 0.5 mg Morphine Sulfate (Morphine) 2 mg IVP Q4H PRN PRN Reason: Pain, moderate (4-7) Last Admin: 11/14/17 21:17 Dose: 2 mg Nicotine (Nicoderm Cq) 1 patch TD DAILY [facility] Last Admin: 11/16/17 10:18 Dose: Not Given Ondansetron HCl (Zofran Inj) 4 mg IVP Q6H PRN PRN Reason: Nausea/Vomiting Pantoprazole Sodium (Protonix Inj) 40 mg IVP DAILY [facility] Last Admin: 11/16/17 09:58 Dose: 40 mg Prednisone (Prednisone Tab) 40 mg PO DAILY [facility] Last Admin: 11/16/17 09:58 Dose: 40 mg Sennosides (Senokot Tab) 8.6 mg PO DAILY [facility] Last Admin: 11/16/17 09:58 Dose: 8.6 mg - Labs Labs: 11/16/17 07:00 11/16/17 07:00 PT 16.8 SECONDS (9.4-12.5) H 11/11/17 05:40 INR 1.45 (0.93-1.08) H 11/11/17 05:40 APTT 25.2 Seconds (25.1-36.5) 11/11/17 05:40 Attending/Attestation - Attestation I have personally seen and examined this patient.: Yes I have fully participated in the care of the patient.: Yes I have reviewed all pertinent clinical information, including history, physical exam and plan: Yes Notes (Text): 11/17/17 10:18 Patient was seen and examined with medical staff director.Agreed with assessment and plan. 52 year old male with past medical history of COPD and alcohol abuse was admitted with with hypercapnic respiratory failure s/p intubation. CT neck showed large supraglottic soft tissue mass with metastatic lymph nodes. CT chest/abd/pelvis was negative for overt mass or lymphadenopathy. He is s/p tracheostomy and biopsy. Pathology result confirms squamous cell carcinoma.Patient is SP PEG tube re positioning by IR tolerating tube feeding. Patient is afebrile and is ambulatory.Patient is on room air today. If he remain stable over 24 hour, he will be discharged home.He will need to follow up with Oncology and Radiation Oncology for treatment of his laryngeal cancer. Management plan was discussed in detail with patient and family who is at bed side. Education was provided.
[2017-11-17] MEDS: Ammonium Lactate 12% Lotion (225 g) EXT SCH ×2 (10:52→21:17)
[2017-11-17] MEDS: Potassium Chloride 20 MEQ in Dextrose 5%/0.45% NS 1,000 ML IV SCH (20:00)
[2017-11-18] MEDS: Albuterol 0.083% Inhal Sol (2.5 mg/3 mL) UD INH SCH ×3 (01:26→13:19)
[2017-11-18 06:30] VITALS: BP 130/79; RESP 19; TEMP 97.8
[2017-11-18 08:09] VITALS: PULSE 71
--- NOTE | 2017-11-18 11:09 | CP.PCM.DIS ---
<Diego Villalobos - Last Filed: 11/18/17 11:17> Provider - Provider Date of Admission: 11/02/17 21:29 Attending physician: Francisco J Ren MD Primary care physician: None Consults: Cardio: Thuy Heme-onc: Maxim Nephro: Perla ENT: Sary Surgery: Jorge IR: Woo Time Spent in preparation of Discharge (in minutes): 35 Diagnosis - Discharge Diagnosis (1) Status post tracheostomy Status: Acute Priority: High (2) CHF (congestive heart failure) Status: Chronic Priority: Medium (3) COPD (chronic obstructive pulmonary disease) Status: Chronic Priority: Medium (4) G tube feedings Status: Acute Priority: High (5) Squamous cell carcinoma Status: Acute Priority: High Hospital Course - Lab Results Lab Results: Micro Results 11/13/17 01:25 Blood Blood Culture - Final NO GROWTH AFTER 5 DAYS 11/13/17 01:25 Blood Gram Stain - Final TEST NOT PERFORMED 11/13/17 01:00 Blood Blood Culture - Final NO GROWTH AFTER 5 DAYS 11/13/17 01:00 Blood Gram Stain - Final TEST NOT PERFORMED 11/03/17 08:10 Nose MRSA Culture (Admit) - Final MRSA NOT DETECTED Most Recent Lab Values WBC 13.3 10^3/ul (4.5-11.0) H D 11/16/17 07:00 RBC 3.89 10^6/uL (3.5-6.1) 11/16/17 07:00 Hgb 11.3 g/dL (14.0-18.0) L 11/16/17 07:00 Hct 34.5 % (42.0-52.0) L 11/16/17 07:00 MCV 88.7 fl (80.0-105.0) 11/16/17 07:00 MCH 29.0 pg (25.0-35.0) 11/16/17 07:00 MCHC 32.8 g/dl (31.0-37.0) 11/16/17 07:00 RDW 13.1 % (11.5-14.5) 11/16/17 07:00 Plt Count 372 10^3/uL (120.0-450.0) 11/16/17 07:00 MPV 10.2 fl (7.0-11.0) 11/16/17 07:00 Gran % 84.2 % (50.0-68.0) H 11/16/17 07:00 Lymph % (Auto) 6.7 % (22.0-35.0) L 11/16/17 07:00 Irwin % (Auto) 8.3 % (1.0-6.0) H 11/16/17 07:00 Eos % (Auto) 0.7 % (1.5-5.0) L 11/16/17 07:00 Baso % (Auto) 0.1 % (0.0-3.0) 11/16/17 07:00 Gran # 11.23 (1.4-6.5) H 11/16/17 07:00 Lymph # (Auto) 0.9 (1.2-3.4) L 11/16/17 07:00 Irwin # (Auto) 1.1 (0.1-0.6) H 11/16/17 07:00 Eos # (Auto) 0.1 (0.0-0.7) 11/16/17 07:00 Baso # (Auto) 0.01 K/mm3 (0.0-2.0) 11/16/17 07:00 Neutrophils % (Manual) 84 % (50.0-70.0) H 11/12/17 06:00 Band Neutrophils % 4 % (0-2) H 11/02/17 19:35 Lymphocytes % (Manual) 8 % (22.0-35.0) L 11/12/17 06:00 Monocytes % (Manual) 8 % (1.0-6.0) H 11/12/17 06:00 Platelet Evaluation Normal (NORMAL) 11/12/17 06:00 PT 16.8 SECONDS (9.4-12.5) H 11/11/17 05:40 INR 1.45 (0.93-1.08) H 11/11/17 05:40 APTT 25.2 Seconds (25.1-36.5) 11/11/17 05:40 pCO2 41 mm/Hg (35-45) 11/07/17 04:41 pO2 70.0 mm/Hg (80-100) L 11/07/17 04:41 HCO3 35.1 mmol/L (21-28) H 11/07/17 04:41 ABG pH 7.54 (7.35-7.45) H 11/07/17 04:41 ABG Total CO2 36.4 mmol.L (22-28) H 11/07/17 04:41 ABG O2 Saturation 97.2 % (95-98) 11/07/17 04:41 ABG O2 Content 15.9 ML/dl (15-23) 11/07/17 04:41 ABG Base Excess 11.5 mmol/L (-2.0-3.0) H 11/07/17 04:41 ABG Hemoglobin 11.9 g/dL (11.7-17.4) 11/07/17 04:41 ABG Carboxyhemoglobin 1.8 % (0.5-1.5) H 11/07/17 04:41 POC ABG HHb (Measured) 2.7 % (0-5) 11/07/17 04:41 ABG Methemoglobin 0.8 % (0.0-3.0) 11/07/17 04:41 ABG O2 Capacity 16.4 mL/dl (16-24) 11/07/17 04:41 VBG pH 7.29 (7.32-7.43) L 11/02/17 19:35 VBG pCO2 93.0 (40-60) H* 11/02/17 19:35 VBG HCO3 44.7 mmol/l (21-28) H 11/02/17 19:35 VBG Total CO2 47.6 mmol.L (22-28) H 11/02/17 19:35 VBG O2 Sat (Calc) 98.8 % (40-65) H 11/02/17 19:35 VBG Base Excess 13.7 mmol/L (0.0-2.0) H 11/02/17 19:35 VBG Potassium 3.9 mmol/L (3.6-5.2) 11/02/17 19:35 Hgb O2 Saturation 94.7 % (95.0-98.0) L 11/07/17 04:41 Sodium 112.0 mmol/L (132-148) L* 11/02/17 19:35 Chloride 71.0 mmol/L (98-107) L 11/02/17 19:35 Glucose 157 mg/dl (75-110) H 11/02/17 19:35 Lactate 1.0 mmol/L (0.7-2.1) 11/02/17 19:35 FiO2 28.0 % 11/07/17 04:41 Sodium 136 mmol/L (132-148) 11/16/17 07:00 Potassium 4.0 mmol/L (3.6-5.0) 11/16/17 07:00 Chloride 98 mmol/L (98-107) 11/16/17 07:00 Carbon Dioxide 30 mmol/L (21-33) 11/16/17 07:00 Anion Gap 12 (10-20) 11/16/17 07:00 BUN 8 mg/dL (7-21) 11/16/17 07:00 Creatinine 0.6 mg/dl (0.8-1.5) L 11/16/17 07:00 Est GFR ( Amer) > 60 11/16/17 07:00 Est GFR (Non-Af Amer) > 60 11/16/17 07:00 POC Glucose (mg/dL) 187 mg/dL (65-110) H 11/04/17 12:17 Random Glucose 98 mg/dL (70-110) 11/16/17 07:00 Serum Osmolality 236 mosm/kg (272-300) L 11/02/17 19:35 Calcium 9.1 mg/dL (8.4-10.5) 11/16/17 07:00 Phosphorus 3.0 mg/dL (2.5-4.5) 11/16/17 07:00 Magnesium 1.8 mg/dL (1.7-2.2) 11/16/17 07:00 Iron 36 ug/dL (45-180) L 11/03/17 11:00 TIBC 218 ug/dL (261-462) L 11/03/17 11:00 % Saturation 17 % (20-55) L 11/03/17 11:00 Ferritin 213.0 ng/mL 11/03/17 11:00 Total Bilirubin 1.2 mg/dL (0.2-1.3) 11/16/17 07:00 AST 24 U/L (17-59) 11/16/17 07:00 ALT 36 U/L (7-56) 11/16/17 07:00 Alkaline Phosphatase 91 U/L (38-126) 11/16/17 07:00 Lactate Dehydrogenase 439 U/L (333-699) 11/02/17 19:35 Total Creatine Kinase 239 U/L (35-230) H 11/02/17 19:35 CK-MB (CK-2) 22.8 ng/mL (0.0-3.6) H 11/02/17 19:35 CK-MB (CK-2) % 9.5 % (2.5-3.0) H 11/02/17 19:35 Troponin I 0.02 ng/mL D 11/03/17 18:50 NT-Pro-B Natriuret Pep 1300 pg/mL (0-450) H 11/02/17 19:35 Total Protein 6.1 g/dL (5.8-8.3) 11/16/17 07:00 Albumin 3.1 g/dL (3.0-4.8) 11/16/17 07:00 Globulin 3.0 gm/dL 11/16/17 07:00 Albumin/Globulin Ratio 1.0 (1.1-1.8) L 11/16/17 07:00 Vitamin B12 418 pg/mL (239-931) 11/03/17 11:00 Folate 16.5 ng/mL 11/03/17 11:00 Procalcitonin 0.13 NG/ML (0.19-0.49) L 11/13/17 01:25 Thyroxine (T4) 7.0 ug/dL (5.5-11.0) 11/03/17 11:00 Total T3 0.83 ng/mL (0.97-1.69) L 11/03/17 11:00 TSH 3rd Generation 0.34 mIU/mL (0.46-4.68) L 11/03/17 11:00 Venous Blood Potassium 3.9 mmol/L (3.6-5.2) 11/02/17 19:35 Urine Color Yellow (YELLOW) 11/13/17 01:15 Urine Appearance Clear (CLEAR) 11/13/17 01:15 Urine pH 6.0 (4.7-8.0) 11/13/17 01:15 Ur Specific Garland 1.020 (1.005-1.035) 11/13/17 01:15 Urine Protein Negative mg/dL (<30 mg/dL) 11/13/17 01:15 Urine Glucose (UA) Negative mg/dL (NEGATIVE) 11/13/17 01:15 Urine Ketones Negative mg/dL (NEGATIVE) 11/13/17 01:15 Urine Blood Trace-lysed (NEGATIVE) H 11/13/17 01:15 Urine Nitrate Negative (NEGATIVE) 11/13/17 01:15 Urine Bilirubin Negative (NEGATIVE) 11/13/17 01:15 Urine Urobilinogen 0.2 E.U./dL (<1 E.U./dL) 11/13/17 01:15 Ur Leukocyte Esterase Negative Yane/uL (NEGATIVE) 11/13/17 01:15 Urine RBC 0 - 2 /hpf (0-2) 11/13/17 01:15 Urine WBC 0 - 2 /hpf (0-6) 11/13/17 01:15 Ur Epithelial Cells 0 - 2 /hpf (0-5) 11/13/17 01:15 Urine Bacteria Rare (NEG) 11/13/17 01:15 Urine Other Uyeast 11/13/17 01:15 Urine Osmolality 145 mosm/kg (300-1000) L 11/03/17 00:30 Ur Random Creatinine 24 mg/dL 11/03/17 02:00 Ur Random Sodium < 5 meq/L 11/03/17 00:30 Ur Random Potassium 10.6 meq/L 11/03/17 00:30 Urine Chloride 15 mmol/L (32-290) L 11/03/17 02:00 Urine Opiates Screen Negative (NEGATIVE) 11/03/17 00:30 Urine Methadone Screen Negative (NEGATIVE) 11/03/17 00:30 Ur Barbiturates Screen Negative (NEGATIVE) 11/03/17 00:30 Ur Phencyclidine Scrn Negative (NEGATIVE) 11/03/17 00:30 Ur Amphetamines Screen Negative (NEGATIVE) 11/03/17 00:30 U Benzodiazepines Scrn Positive (NEGATIVE) 11/03/17 00:30 U Oth Cocaine Metabols Negative (NEGATIVE) 11/03/17 00:30 U Cannabinoids Screen Negative (NEGATIVE) 11/03/17 00:30 Alcohol, Quantitative < 10 mg/dL (0-10) 11/02/17 21:13 Influenza Typ A,B (EIA) Negative for flu a/b (NEGATIVE) 11/03/17 15:15 Ur L.pneumophila Ag Negative (NEGATIVE) 11/03/17 02:00 Mycoplasma pneumon IgG 1.63 (<=0.90) H 11/03/17 01:03 Mycoplasma pneumon IgM 183 U/mL (<770) 11/03/17 01:03 Ur Strep pneumoniae Ag Not detected 11/03/17 00:30 Blood Type B POSITIVE 11/11/17 06:00 Blood Type Confirm B POSITIVE 11/11/17 07:30 Antibody Screen Negative 11/11/17 06:00 BBK History Checked No verified bt 11/11/17 06:00 - Hospital Course Hospital Course: This is a 52 year old male with PMH asthma, COPD, tobacco abuse, possible alcohol abuse who came to ED for shortness of breath, admitted for hypercapneic respiratory failure requiring intubation and hyponatremia 2/2 likely dehydration. Hyponatremia corrected with NS, which resolved. Pt was found to have a 2.7 x 2.0 x 4.5 cm left supraglottic soft tissue mass on CT neck, with metastatic enlarged left level 1B to level [address] chest/abdomen/ pelvis showed no overt masses. ENT consulted, biopsy of mass showed moderately differentiated squamous cell carcinoma. Pt requiring tracheostomy and G tube placement for feedings per Surgery. Heme-Onc, Radiation oncologist consulted, pt to follow up outpatient after discharge for treatments. Physical therapy recommended LTAC placement, however, pt's insurance does not cover. Patient's family supportive, brother Salomon involved in patient's care. Pt and family learned trach and G tube care from nursing staff, state that they now feel comfortable with it. Pt advanced to bolus feeds and tolerated well. Pt discharged home on his medications, including prednisone taper dose. Pt to follow up as outpatient with Heme-onc, Rad onc, PMD in 1 week. All medications and instructions reviewed again with patient and family at bedside, who expressed understanding and agreement. Scripts for all medications were electronically transmitted to the in-house outpatient pharmacy for availability on discharge, and scripts for home nebulizer and home trach care kit with suctioning were written and provided to family. Patient was then discharged. Patient seen, reviewed, and discussed with attending, Dr. Ren. Discharge Exam - Additional Findings Additional findings: - Constitutional Appears: Well, Non-toxic, No Acute Distress - Head Exam Head Exam: ATRAUMATIC, NORMOCEPHALIC - Eye Exam Eye Exam: EOMI. absent: Conjunctival injection, Nystagmus, Scleral icterus Pupil Exam: absent: Irregular, Unequal - ENT Exam ENT Exam: Mucous Membranes Moist; trach in place with frequent secretions, held in place with trach collar - Neck Exam Neck Exam: Full ROM - Respiratory Exam Respiratory Exam: Clear to Ausculation Bilateral, NORMAL BREATHING PATTERN, Wet- sounding cough. absent: Accessory Muscle Use, Chest Wall Tenderness, Decreased Breath Sounds, Rales, Rhonchi, Wheezes, Respiratory Distress, Stridor - Cardiovascular Exam Cardiovascular Exam: RRR, +S1, +S2. absent: Murmur - GI/Abdominal Exam GI & Abdominal Exam: Soft, Normal Bowel Sounds, feeding tube in place tolerating continuous and then bolus feeds. absent: Distended, Firm, Guarding, Rigid, Tenderness, Mass, Organomegaly, Rebound - Extremities Exam Extremities Exam: Normal Inspection. absent: Calf Tenderness, Pedal Edema - Neurological Exam Neurological Exam: Alert, Awake, Normal Gait, Oriented x3 - Psychiatric Exam Psychiatric exam: Normal Affect, Normal Mood - Skin Skin Exam: Dry, Normal Color, Warm Discharge Plan - Discharge Medications Prescriptions: Albuterol HFA [Ventolin HFA 90 mcg/actuation (8 g)] 1 puff IH Q6H PRN #1 inhaler PRN Reason: Shortness Of Breath Albuterol/Ipratropium [Duoneb 3 MG/3 Ml-0.5 MG/3 Ml 3 Ml] 3 ml IH Q6 #120 neb Ammonium Lactate 12% [Lac-Hydrin 12% Lotion (225 g)] 1 gm EXT Q12 #2 bottle Docusate [Colace LIQUID] 100 mg PO TID 30 Days udc Folic Acid 1 mg PO DAILY #30 tab Mometasone Furoate [Asmanex] 110 mcg IH DAILY #1 aer.pow.ba Nebulizer [Aeroeclipse II] 1 each MC DAILY #1 each Nicotine 21 mg/24 hr [Nicoderm Cq] 1 patch TD DAILY 30 Days patch Pantoprazole [Protonix] 20 mg PO DAILY 14 Days packet Prednisone [Deltasone] 20 mg PO DAILY #3 tablet Prednisone 10 mg PO DAILY 3 Days tab.ds.pk Prednisone [Ilda] 5 mg PO DAILY 2 Days tablet.dr Buchanannosidelu A and B [Senokot Tab] 8.6 mg PO DAILY 30 Days tab Thiamine [Vitamin B1 Tab] 100 mg PO DAILY #30 tab - Follow Up Plan Condition: SERIOUS Disposition: HOME/ ROUTINE Instructions: How to Care for Your PEG Tube , Squamous Cell Carcinoma (DC), How to Care for a Tracheostomy, How to Give a Tube Feeding, Heart Failure (DC), Heart Failure (GEN), Pacemaker (DC), Pacemaker (GEN), Pulmonary Edema (DC), Pulmonary Edema (GEN), Hyponatremia (DC), Ascites (DC), Ascites (GEN) Additional Instructions: - Take meds as prescribed. Take prednisone 20 mg daily for 3 days->10 mg for 3 days->5 mg for 2 days. - Follow up with Heme-Onc doctor and radiation Oncologist doctor in 1 week. - Follow up with primary care doctor in 1 week. - Return to ER for any concerns. Referrals: Chasity Arndt MD [Staff Provider] - Joaquin Pan MD [Medical Doctor] - <Francisco J Ren - Last Filed: 11/18/17 11:50> Provider - Provider Date of Admission: 11/02/17 21:29 Attending physician: Francisco J Ren MD Hospital Course - Lab Results Lab Results: Micro Results 11/13/17 01:25 Blood Blood Culture - Final NO GROWTH AFTER 5 DAYS 11/13/17 01:25 Blood Gram Stain - Final TEST NOT PERFORMED 11/13/17 01:00 Blood Blood Culture - Final NO GROWTH AFTER 5 DAYS 11/13/17 01:00 Blood Gram Stain - Final TEST NOT PERFORMED 11/03/17 08:10 Nose MRSA Culture (Admit) - Final MRSA NOT DETECTED Most Recent Lab Values WBC 13.3 10^3/ul (4.5-11.0) H D 11/16/17 07:00 RBC 3.89 10^6/uL (3.5-6.1) 11/16/17 07:00 Hgb 11.3 g/dL (14.0-18.0) L 11/16/17 07:00 Hct 34.5 % (42.0-52.0) L 11/16/17 07:00 MCV 88.7 fl (80.0-105.0) 11/16/17 07:00 MCH 29.0 pg (25.0-35.0) 11/16/17 07:00 MCHC 32.8 g/dl (31.0-37.0) 11/16/17 07:00 RDW 13.1 % (11.5-14.5) 11/16/17 07:00 Plt Count 372 10^3/uL (120.0-450.0) 11/16/17 07:00 MPV 10.2 fl (7.0-11.0) 11/16/17 07:00 Gran % 84.2 % (50.0-68.0) H 11/16/17 07:00 Lymph % (Auto) 6.7 % (22.0-35.0) L 11/16/17 07:00 Irwin % (Auto) 8.3 % (1.0-6.0) H 11/16/17 07:00 Eos % (Auto) 0.7 % (1.5-5.0) L 11/16/17 07:00 Baso % (Auto) 0.1 % (0.0-3.0) 11/16/17 07:00 Gran # 11.23 (1.4-6.5) H 11/16/17 07:00 Lymph # (Auto) 0.9 (1.2-3.4) L 11/16/17 07:00 Irwin # (Auto) 1.1 (0.1-0.6) H 11/16/17 07:00 Eos # (Auto) 0.1 (0.0-0.7) 11/16/17 07:00 Baso # (Auto) 0.01 K/mm3 (0.0-2.0) 11/16/17 07:00 Neutrophils % (Manual) 84 % (50.0-70.0) H 11/12/17 06:00 Band Neutrophils % 4 % (0-2) H 11/02/17 19:35 Lymphocytes % (Manual) 8 % (22.0-35.0) L 11/12/17 06:00 Monocytes % (Manual) 8 % (1.0-6.0) H 11/12/17 06:00 Platelet Evaluation Normal (NORMAL) 11/12/17 06:00 PT 16.8 SECONDS (9.4-12.5) H 11/11/17 05:40 INR 1.45 (0.93-1.08) H 11/11/17 05:40 APTT 25.2 Seconds (25.1-36.5) 11/11/17 05:40 pCO2 41 mm/Hg (35-45) 11/07/17 04:41 pO2 70.0 mm/Hg (80-100) L 11/07/17 04:41 HCO3 35.1 mmol/L (21-28) H 11/07/17 04:41 ABG pH 7.54 (7.35-7.45) H 11/07/17 04:41 ABG Total CO2 36.4 mmol.L (22-28) H 11/07/17 04:41 ABG O2 Saturation 97.2 % (95-98) 11/07/17 04:41 ABG O2 Content 15.9 ML/dl (15-23) 11/07/17 04:41 ABG Base Excess 11.5 mmol/L (-2.0-3.0) H 11/07/17 04:41 ABG Hemoglobin 11.9 g/dL (11.7-17.4) 11/07/17 04:41 ABG Carboxyhemoglobin 1.8 % (0.5-1.5) H 11/07/17 04:41 POC ABG HHb (Measured) 2.7 % (0-5) 11/07/17 04:41 ABG Methemoglobin 0.8 % (0.0-3.0) 11/07/17 04:41 ABG O2 Capacity 16.4 mL/dl (16-24) 11/07/17 04:41 VBG pH 7.29 (7.32-7.43) L 11/02/17 19:35 VBG pCO2 93.0 (40-60) H* 11/02/17 19:35 VBG HCO3 44.7 mmol/l (21-28) H 11/02/17 19:35 VBG Total CO2 47.6 mmol.L (22-28) H 11/02/17 19:35 VBG O2 Sat (Calc) 98.8 % (40-65) H 11/02/17 19:35 VBG Base Excess 13.7 mmol/L (0.0-2.0) H 11/02/17 19:35 VBG Potassium 3.9 mmol/L (3.6-5.2) 11/02/17 19:35 Hgb O2 Saturation 94.7 % (95.0-98.0) L 11/07/17 04:41 Sodium 112.0 mmol/L (132-148) L* 11/02/17 19:35 Chloride 71.0 mmol/L (98-107) L 11/02/17 19:35 Glucose 157 mg/dl (75-110) H 11/02/17 19:35 Lactate 1.0 mmol/L (0.7-2.1) 11/02/17 19:35 FiO2 28.0 % 11/07/17 04:41 Sodium 136 mmol/L (132-148) 11/16/17 07:00 Potassium 4.0 mmol/L (3.6-5.0) 11/16/17 07:00 Chloride 98 mmol/L (98-107) 11/16/17 07:00 Carbon Dioxide 30 mmol/L (21-33) 11/16/17 07:00 Anion Gap 12 (10-20) 11/16/17 07:00 BUN 8 mg/dL (7-21) 11/16/17 07:00 Creatinine 0.6 mg/dl (0.8-1.5) L 11/16/17 07:00 Est GFR ( Amer) > 60 11/16/17 07:00 Est GFR (Non-Af Amer) > 60 11/16/17 07:00 POC Glucose (mg/dL) 187 mg/dL (65-110) H 11/04/17 12:17 Random Glucose 98 mg/dL (70-110) 11/16/17 07:00 Serum Osmolality 236 mosm/kg (272-300) L 11/02/17 19:35 Calcium 9.1 mg/dL (8.4-10.5) 11/16/17 07:00 Phosphorus 3.0 mg/dL (2.5-4.5) 11/16/17 07:00 Magnesium 1.8 mg/dL (1.7-2.2) 11/16/17 07:00 Iron 36 ug/dL (45-180) L 11/03/17 11:00 TIBC 218 ug/dL (261-462) L 11/03/17 11:00 % Saturation 17 % (20-55) L 11/03/17 11:00 Ferritin 213.0 ng/mL 11/03/17 11:00 Total Bilirubin 1.2 mg/dL (0.2-1.3) 11/16/17 07:00 AST 24 U/L (17-59) 11/16/17 07:00 ALT 36 U/L (7-56) 11/16/17 07:00 Alkaline Phosphatase 91 U/L (38-126) 11/16/17 07:00 Lactate Dehydrogenase 439 U/L (333-699) 11/02/17 19:35 Total Creatine Kinase 239 U/L (35-230) H 11/02/17 19:35 CK-MB (CK-2) 22.8 ng/mL (0.0-3.6) H 11/02/17 19:35 CK-MB (CK-2) % 9.5 % (2.5-3.0) H 11/02/17 19:35 Troponin I 0.02 ng/mL D 11/03/17 18:50 NT-Pro-B Natriuret Pep 1300 pg/mL (0-450) H 11/02/17 19:35 Total Protein 6.1 g/dL (5.8-8.3) 11/16/17 07:00 Albumin 3.1 g/dL (3.0-4.8) 11/16/17 07:00 Globulin 3.0 gm/dL 11/16/17 07:00 Albumin/Globulin Ratio 1.0 (1.1-1.8) L 11/16/17 07:00 Vitamin B12 418 pg/mL (239-931) 11/03/17 11:00 Folate 16.5 ng/mL 11/03/17 11:00 Procalcitonin 0.13 NG/ML (0.19-0.49) L 11/13/17 01:25 Thyroxine (T4) 7.0 ug/dL (5.5-11.0) 11/03/17 11:00 Total T3 0.83 ng/mL (0.97-1.69) L 11/03/17 11:00 TSH 3rd Generation 0.34 mIU/mL (0.46-4.68) L 11/03/17 11:00 Venous Blood Potassium 3.9 mmol/L (3.6-5.2) 11/02/17 19:35 Urine Color Yellow (YELLOW) 11/13/17 01:15 Urine Appearance Clear (CLEAR) 11/13/17 01:15 Urine pH 6.0 (4.7-8.0) 11/13/17 01:15 Ur Specific [place] 1.020 (1.005-1.035) 11/13/17 01:15 Urine Protein Negative mg/dL (<30 mg/dL) 11/13/17 01:15 Urine Glucose (UA) Negative mg/dL (NEGATIVE) 11/13/17 01:15 Urine Ketones Negative mg/dL (NEGATIVE) 11/13/17 01:15 Urine Blood Trace-lysed (NEGATIVE) H 11/13/17 01:15 Urine Nitrate Negative (NEGATIVE) 11/13/17 01:15 Urine Bilirubin Negative (NEGATIVE) 11/13/17 01:15 Urine Urobilinogen 0.2 E.U./dL (<1 E.U./dL) 11/13/17 01:15 Ur Leukocyte Esterase Negative Yane/uL (NEGATIVE) 11/13/17 01:15 Urine RBC 0 - 2 /hpf (0-2) 11/13/17 01:15 Urine WBC 0 - 2 /hpf (0-6) 11/13/17 01:15 Ur Epithelial Cells 0 - 2 /hpf (0-5) 11/13/17 01:15 Urine Bacteria Rare (NEG) 11/13/17 01:15 Urine Other Uyeast 11/13/17 01:15 Urine Osmolality 145 mosm/kg (300-1000) L 11/03/17 00:30 Ur Random Creatinine 24 mg/dL 11/03/17 02:00 Ur Random Sodium < 5 meq/L 11/03/17 00:30 Ur Random Potassium 10.6 meq/L 11/03/17 00:30 Urine Chloride 15 mmol/L (32-290) L 11/03/17 02:00 Urine Opiates Screen Negative (NEGATIVE) 11/03/17 00:30 Urine Methadone Screen Negative (NEGATIVE) 11/03/17 00:30 Ur Barbiturates Screen Negative (NEGATIVE) 11/03/17 00:30 Ur Phencyclidine Scrn Negative (NEGATIVE) 11/03/17 00:30 Ur Amphetamines Screen Negative (NEGATIVE) 11/03/17 00:30 U Benzodiazepines Scrn Positive (NEGATIVE) 11/03/17 00:30 U Oth Cocaine Metabols Negative (NEGATIVE) 11/03/17 00:30 U Cannabinoids Screen Negative (NEGATIVE) 11/03/17 00:30 Alcohol, Quantitative < 10 mg/dL (0-10) 11/02/17 21:13 Influenza Typ A,B (EIA) Negative for flu a/b (NEGATIVE) 11/03/17 15:15 Ur L.pneumophila Ag Negative (NEGATIVE) 11/03/17 02:00 Mycoplasma pneumon IgG 1.63 (<=0.90) H 11/03/17 01:03 Mycoplasma pneumon IgM 183 U/mL (<770) 11/03/17 01:03 Ur Strep pneumoniae Ag Not detected 11/03/17 00:30 Blood Type B POSITIVE 11/11/17 06:00 Blood Type Confirm B POSITIVE 11/11/17 07:30 Antibody Screen Negative 11/11/17 06:00 BBK History Checked No verified bt 11/11/17 06:00 Attending/Attestation - Attestation I have personally seen and examined this patient.: Yes I have fully participated in the care of the patient.: Yes I have reviewed all pertinent clinical information, including history, physical exam and plan: Yes Notes (Text): 11/18/17 11:47 Patient was seen and examined with medical accounting clerk.Agreed with assessment and plan. 52 year old male with past medical history of COPD and alcohol abuse was admitted with with hypercapnic respiratory failure due to COPD exacerbation and , hyponatremia.He was found to have laryngeal mass.He was intubated .CT neck showed large supraglottic soft tissue mass with metastatic lymph nodes. CT chest/abd/pelvis was negative for overt mass or lymphadenopathy. He is s/p tracheostomy and biopsy. Pathology result confirms squamous cell carcinoma.Patient is SP PEG tube re positioning by IR tolerating tube feeding. Patient is afebrile and is ambulatory.Patient is on room air today. He is not wheezing, he and family was given education regarding tube feeding and tracheotomy care. He will be discharged home and will follow up with PCP/Oncology and radiation oncology. Management plan was discussed in detail with patient and family who is at bed side. Education was provided.
--- NOTE | 2017-11-18 12:53 | CP.PCM.PN ---
Subjective - Date & Time of Evaluation Date of Evaluation: 11/18/17 Time of Evaluation: 12:50 - Subjective Subjective: Surgery: Dr. Patel Patient seen and examined at bedside. Patient states that he has been out of bed and has been passing bowels. No fevers, chills, nausea, vomiting, or diarrhea. Patient states he is tolerating tube feeds. Objective - Vital Signs/Intake and Output Vital Signs (last 24 hours): Temp Pulse Resp BP Pulse Ox 97.8 F 71 19 130/79 95 11/18/17 08:08 11/18/17 08:08 11/18/17 08:08 11/18/17 08:08 11/18/17 08:08 Intake and Output: 11/18/17 11/18/17 06:59 18:59 Intake Total 540 Output Total 650 Balance -110 - Medications Medications: Current Medications Albuterol Sulfate (Albuterol 0.083% Inhal Snow (2.5 Mg/3 Ml) Ud) 2.5 mg INH [id number] [facility] Last Admin: 11/18/17 07:27 Dose: 2.5 mg Docusate Sodium (Colace Liquid) 100 mg PO TID [facility] Last Admin: 11/18/17 09:28 Dose: 100 mg Heparin Sodium (Porcine) (Heparin) 5,000 units SC Q12 [facility] PRN Reason: Protocol Last Admin: 11/18/17 09:29 Dose: Not Given Hydralazine HCl (Apresoline) 10 mg IVP Q6 PRN PRN Reason: Systolic Blood Pressure >180 Last Admin: 11/06/17 12:04 Dose: 10 mg Potassium Chloride 20 meq/ (Dextrose/Sodium Chloride) 1,010 mls @ 60 mls/hr IV .[id number] [facility] Last Admin: 11/17/17 20:00 Dose: Not Given Lactic Acid (Lac-Hydrin 12% Lotion (225 G)) 1 gm EXT Q12 [facility] Last Admin: 11/17/17 21:17 Dose: 1 tcp Lorazepam (Ativan) 0.5 mg IVP Q6H PRN; Protocol PRN Reason: Anxiety Last Admin: 11/07/17 22:00 Dose: 0.5 mg Ondansetron HCl (Zofran Inj) 4 mg IVP Q6H PRN PRN Reason: Nausea/Vomiting Prednisone (Prednisone Tab) 40 mg PO DAILY [facility] Last Admin: 11/18/17 09:28 Dose: 40 mg Sennosides (Senokot Tab) 8.6 mg PO DAILY [facility] Last Admin: 11/18/17 09:29 Dose: 8.6 mg - Labs Labs: 11/16/17 07:00 11/16/17 07:00 PT 16.8 SECONDS (9.4-12.5) H 11/11/17 05:40 INR 1.45 (0.93-1.08) H 11/11/17 05:40 APTT 25.2 Seconds (25.1-36.5) 11/11/17 05:40 - Constitutional Appears: Well - Head Exam Head Exam: ATRAUMATIC, NORMAL INSPECTION, NORMOCEPHALIC - Eye Exam Eye Exam: EOMI, Normal appearance, PERRL Pupil Exam: NORMAL ACCOMODATION, PERRL - ENT Exam ENT Exam: Mucous Membranes Moist, Normal Exam - Neck Exam Neck Exam: Full ROM, Normal Inspection. absent: Lymphadenopathy - Respiratory Exam Respiratory Exam: Clear to Ausculation Bilateral, NORMAL BREATHING PATTERN - Cardiovascular Exam Cardiovascular Exam: REGULAR RHYTHM, +S1, +S2. absent: Murmur - GI/Abdominal Exam GI & Abdominal Exam: Soft, Normal Bowel Sounds. absent: Tenderness - Extremities Exam Extremities Exam: Full ROM, Normal Capillary Refill, Normal Inspection. absent : Joint Swelling, Pedal Edema - Back Exam Back Exam: NORMAL INSPECTION - Neurological Exam Neurological Exam: Alert, Awake, CN II-XII Intact, Normal Gait, Oriented x3 - Psychiatric Exam Psychiatric exam: Normal Affect, Normal Mood - Skin Skin Exam: Dry, Intact, Normal Color, Warm Assessment and Plan - Assessment and Plan (Free Text) Assessment: 52 y/o male s/p open G tube placement w/ dislodgement requiring IR replacement pigtail tube Plan: -recommend bolus feedings starting today -tube feedings are at goal -keep tension off of pigtail catheter with dressing support -patient is clear for discharge from a surgical standpoint, follow up with Dr. Patel in his office prn -discussed with Dr. Patel, who agrees with plan
--- NOTE | 2017-11-18 13:32 | CP.PCM.PN ---
Subjective - Date & Time of Evaluation Date of Evaluation: 11/18/17 Time of Evaluation: 13:29 - Subjective Subjective: Patient seen and examined, resting comfortably, positive secretions from tracheotomy, voicing with passey tone valve. Objective - Vital Signs/Intake and Output Vital Signs (last 24 hours): Temp Pulse Resp BP Pulse Ox 97.8 F 71 19 130/79 95 11/18/17 08:08 11/18/17 08:08 11/18/17 08:08 11/18/17 08:08 11/18/17 08:08 Intake and Output: 11/18/17 11/18/17 06:59 18:59 Intake Total 540 Output Total 650 Balance -110 - Medications Medications: Current Medications Albuterol Sulfate (Albuterol 0.083% Inhal Snow (2.5 Mg/3 Ml) Ud) 2.5 mg INH [id number] [facility] Last Admin: 11/18/17 13:19 Dose: 2.5 mg Docusate Sodium (Colace Liquid) 100 mg PO TID [facility] Last Admin: 11/18/17 09:28 Dose: 100 mg Heparin Sodium (Porcine) (Heparin) 5,000 units SC Q12 [facility] PRN Reason: Protocol Last Admin: 11/18/17 09:29 Dose: Not Given Hydralazine HCl (Apresoline) 10 mg IVP Q6 PRN PRN Reason: Systolic Blood Pressure >180 Last Admin: 11/06/17 12:04 Dose: 10 mg Potassium Chloride 20 meq/ (Dextrose/Sodium Chloride) 1,010 mls @ 60 mls/hr IV .[id number] [facility] Last Admin: 11/17/17 20:00 Dose: Not Given Lactic Acid (Lac-Hydrin 12% Lotion (225 G)) 1 gm EXT Q12 [facility] Last Admin: 11/17/17 21:17 Dose: 1 tcp Lorazepam (Ativan) 0.5 mg IVP Q6H PRN; Protocol PRN Reason: Anxiety Last Admin: 11/07/17 22:00 Dose: 0.5 mg Ondansetron HCl (Zofran Inj) 4 mg IVP Q6H PRN PRN Reason: Nausea/Vomiting Prednisone (Prednisone Tab) 40 mg PO DAILY [facility] Last Admin: 11/18/17 09:28 Dose: 40 mg Sennosides (Senokot Tab) 8.6 mg PO DAILY [facility] Last Admin: 11/18/17 09:29 Dose: 8.6 mg - Labs Labs: 11/16/17 07:00 11/16/17 07:00 PT 16.8 SECONDS (9.4-12.5) H 11/11/17 05:40 INR 1.45 (0.93-1.08) H 11/11/17 05:40 APTT 25.2 Seconds (25.1-36.5) 11/11/17 05:40 - Constitutional Appears: Well, Non-toxic, No Acute Distress - Head Exam Head Exam: ATRAUMATIC, NORMAL INSPECTION, NORMOCEPHALIC - ENT Exam ENT Exam: Mucous Membranes Moist, Normal Exam - Neck Exam Additional comments: Tracheotomy tube changed to #6 Non Fen, Non cuffed tube without incident. 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
--- NOTE | 2017-11-18 19:16 | PN ---
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 He received an emergency tracheostomy and a feeding tube. Today, he is able to walk about and he will be probably discharged today, but he is walking in the room much better than before. PHYSICAL EXAMINATION SKIN: No petechiae. No bruises. HEENT: Anicteric. NODES: Nonpalpable in the axillary, cervical, supraclavicular, or inguinal regions. LUNGS: Clear at present. No vertebral tenderness. HEART: S1 and S2. ABDOMEN: Shows no liver, no spleen. Feeding tube is in place. EXTREMITIES: No edema. CENTRAL NERVOUS SYSTEMS: No focal findings. ASSESSMENT AND PLAN: I have spoken to the brother several times and I explained to the patient that the brother wants him to go for second opinion and to get treated at a [place] like [facility], then I said that is perfectly fine. He also spoke with the radiation oncologist on Saturday, who was suggesting that the patient get chemotherapy with radiation therapy, followed by surgery; however, Dr. Arndt will be back today or tomorrow, and we will further discuss that. I give the patient my address and phone number, both from [place] and [place], and I told him that when his brother comes in today to give me a call to ensure that he gets treated over at [facility] . Joaquin Pan MD
== END 2017-11-18 16:18 | disposition home or self-care (01) | DRG 482 ==
LOC: ED 18:27 → ERH 21:29 → CCU 11-03 07:56 → 2RNO 11-08 12:13 → 5RNO 11-12 18:03
PROVIDERS: ADMIT Internal Medicine; ATTEND Internal Medicine
PROC: 0BH17EZ Insertion of Endotracheal Airway into Trachea, Via Natural or Artificial Opening (ICD-10-PCS; 2017-11-02)
PROC: 5A1945Z Respiratory Ventilation, 24-96 Consecutive Hours (ICD-10-PCS; 2017-11-03)
PROC: 3E0F7GC Introduction of Other Therapeutic Substance into Respiratory Tract, Via Natural or Artificial Opening (ICD-10-PCS; 2017-11-03)
PROC: 5A09357 Assistance with Respiratory Ventilation, Less than 24 Consecutive Hours, Continuous Positive Airway Pressure (ICD-10-PCS; 2017-11-04)
PROC: 0CBT8ZX Excision of Right Vocal Cord, Via Natural or Artificial Opening Endoscopic, Diagnostic (ICD-10-PCS; 2017-11-06)
PROC: 0CBV8ZX Excision of Left Vocal Cord, Via Natural or Artificial Opening Endoscopic, Diagnostic (ICD-10-PCS; 2017-11-06)
PROC: 0CBM8ZX Excision of Pharynx, Via Natural or Artificial Opening Endoscopic, Diagnostic (ICD-10-PCS; 2017-11-06)
PROC: 0CBS8ZX Excision of Larynx, Via Natural or Artificial Opening Endoscopic, Diagnostic (ICD-10-PCS; 2017-11-06)
PROC: 0B110F4 Bypass Trachea to Cutaneous with Tracheostomy Device, Open Approach (ICD-10-PCS; principal; 2017-11-06 12:30)
PROC: 0CBR8ZX Excision of Epiglottis, Via Natural or Artificial Opening Endoscopic, Diagnostic (ICD-10-PCS; 2017-11-06 12:30)
PROC: 0DH60UZ Insertion of Feeding Device into Stomach, Open Approach (ICD-10-PCS; 2017-11-11)
PROC: 3E0G76Z Introduction of Nutritional Substance into Upper GI, Via Natural or Artificial Opening (ICD-10-PCS; 2017-11-12)
PROC: 0DH63UZ Insertion of Feeding Device into Stomach, Percutaneous Approach (ICD-10-PCS; 2017-11-14)
DX: C32.1 Malignant neoplasm of supraglottis (principal); J96.91 Respiratory failure, unspecified with hypoxia; J96.92 Respiratory failure, unspecified with hypercapnia; R13.10 Dysphagia, unspecified; J44.1 Chronic obstructive pulmonary disease with (acute) exacerbation; E87.1 Hypo-osmolality and hyponatremia; E83.42 Hypomagnesemia; E87.2 Acidosis; I11.0 Hypertensive heart disease with heart failure; I50.9 Heart failure, unspecified; E86.1 Hypovolemia; F10.239 Alcohol dependence with withdrawal, unspecified; E87.6 Hypokalemia; E86.0 Dehydration; K94.23 Gastrostomy malfunction; D50.9 Iron deficiency anemia, unspecified; R63.4 Abnormal weight loss; F17.210 Nicotine dependence, cigarettes, uncomplicated; F41.9 Anxiety disorder, unspecified; Y83.3 Surgical operation with formation of external stoma as the cause of abnormal reaction of the patient, or of later complication, without mention of misadventure at the time of the procedure

== ENCOUNTER 2017-12-23 09:44 | Inpatient (IN) | payer MEDICAID, OTHER ==
[2017-12-23 09:48] VITALS: BMI 17.2
--- NOTE | 2017-12-23 10:37 | ED PDOC ---
Arrival/HPI - General Chief Complaint: GI Problem Time Seen by Provider: 12/23/17 09:54 Historian: Patient - History of Present Illness Narrative History of Present Illness (Text): 12/23/17 10:34 52yo male with PMHx of Pharyngeal cancer s/p tracheostomy and peg tub placement present with complaint of leaky peg tube x one week. He reports purulent discharge from the tube, pain around the area with redness. He however denies fever, diarrhea, chest pain, any other complaint. Past Medical History - Provider Review Nursing Documentation Reviewed: Yes - Infectious Disease Hx of Infectious Diseases: None - Cardiac Hx Pacemaker: No - Pulmonary Hx Chronic Obstructive Pulmonary Disease (COPD): Yes Other/Comment: Collared trach tube - Neurological Hx Paralysis: No - HEENT Hx HEENT Disorder: Yes (USES GLASSES FOR READING) - Endocrine/Metabolic Hx Endocrine Disorders: No - Hematological/Oncological Hx Blood Transfusions: No Hx Blood Transfusion Reaction: No - Integumentary Hx Dermatological Disorder: No - Musculoskeletal/Rheumatological Hx Musculoskeletal Disorders: No - Gastrointestinal Hx Gastrointestinal Disorders: No Other/Comment: Gtube - Genitourinary/Gynecological Hx Genitourinary Disorders: Yes Other/Comment: HX OF FREQUENT URINATION ON MEDS - Psychiatric Hx Psychophysiologic Disorder: No Hx Substance Use: No - Surgical History Other/Comment: Gtube. Trach (collar) - Anesthesia Hx Anesthesia: Yes Hx Anesthesia Reactions: No Hx Malignant Hyperthermia: No Family/Social History - Physician Review Nursing Documentation Reviewed: Yes Family/Social History: Unknown Family HX Smoking Status: Heavy Smoker > 10 Cigarettes Daily Hx Alcohol Use: Yes Hx Substance Use: No Allergies/Home Meds Allergies/Adverse Reactions: Allergies No Known Allergies Allergy (Verified 12/15/17 20:45) Review of Systems - Physician Review All systems were reviewed & negative as marked: Yes - Review of Systems Constitutional: Normal Eyes: Normal ENT: Normal Respiratory: Normal Cardiovascular: Normal Gastrointestinal: Abdominal Pain, Other (Discharge from peg tube). absent: Nausea, Vomiting Genitourinary Male: Normal Musculoskeletal: Normal Skin: Normal Neurological: Normal Endocrine: Normal Hemo/Lymphatic: Normal Psychiatric: Normal Physical Exam Vital Signs Reviewed: Yes Vital Signs Temp Pulse Resp BP Pulse Ox 12/23/17 15:06 75 18 138/71 97 12/23/17 14:48 77 18 135/70 97 12/23/17 09:48 98.8 F 78 18 148/90 98 Temperature: Afebrile Blood Pressure: Normal Pulse: Regular Respiratory Rate: Normal Appearance: Positive for: Well-Appearing, Non-Toxic, Comfortable Pain Distress: None Mental Status: Positive for: Alert and Oriented X 3 - Systems Exam Head: Present: Atraumatic, Normocephalic Pupils: Present: PERRL Extroacular Muscles: Present: EOMI Conjunctiva: Present: Normal Mouth: Present: Moist Mucous Membranes Neck: Present: Normal Range of Motion Respiratory/Chest: Present: Clear to Auscultation, Good Air Exchange. No: Respiratory Distress, Accessory Muscle Use Cardiovascular: Present: Regular Rate and Rhythm, Normal S1, S2. No: Murmurs Abdomen: Present: Tenderness (Around the peg tube), Normal Bowel Sounds, Guarding (Voluntary), Feeding Tubes (Peg tube noted in place with purulent discharge and surrounding erythema.), Other (Soft). No: Distention, Peritoneal Signs, Rebound, McBurney's Point Tender, Rovsing's Sign Present Back: Present: Normal Inspection Upper Extremity: Present: Normal Inspection. No: Cyanosis, Edema Lower Extremity: Present: Normal Inspection. No: Edema Neurological: Present: GCS=15, CN II-XII Intact, Speech Normal Skin: Present: Warm, Dry, Normal Color. No: Rashes Psychiatric: Present: Alert, Oriented x 3, Normal Insight, Normal Concentration Medical Decision Making ED Course and Treatment: 12/23/17 19:20 Pt presented for stted history. He was hemodyanmcially stable in ED. Leukocytosis was noted. Pt was started on Vanco and Zosyn. Abdominal/Pelvis CT IMPRESSION: No acute intra-abdominal findings Case was MANUEL Cruz and he requested that pt be admitted to the Hospitalist service. Case was MANUEL Ren and he accepted pt to his service. - Lab Interpretations Lab Results: 12/23/17 10:38 12/23/17 10:38 Lab Results 12/23/17 10:38: Lactic Acid 1.0 12/23/17 10:38: Sodium 138, Potassium 3.7, Chloride 98, Carbon Dioxide 33, Anion Gap 10, BUN 12, Creatinine 0.7 L, Est GFR ( Amer) > 60, Est GFR ( Non-Af Amer) > 60, Random Glucose 109, Calcium 9.4, Total Bilirubin 0.4, AST 36 , ALT 26, Alkaline Phosphatase 67, Total Protein 6.4, Albumin 3.0, Globulin 3.3 , Albumin/Globulin Ratio 0.9 L, Lipase 220 12/23/17 10:38: PT 17.7 H, INR 1.53 H, APTT 29.9 12/23/17 10:38: WBC 12.4 H, RBC 3.30 L, Hgb 9.6 L, Hct 29.1 L, MCV 88.2, MCH 29.1, MCHC 33.0, RDW 13.8, Plt Count 465 H, MPV 8.5, Gran % 80.9 H, Lymph % ( Auto) 6.1 L, [place] % (Auto) 10.2 H, Eos % (Auto) 2.6, Baso % (Auto) 0.2, Gran # 10.03 H, Lymph # (Auto) 0.8 L, [place] # (Auto) 1.3 H, Eos # (Auto) 0.3, Baso # ( Auto) 0.03 - RAD Interpretation Radiology Orders: 12/23/17 11:11 ABD & PELVIS IV CONTRAST ONLY [CT] Stat - Medication Orders Current Medication Orders: Albuterol/Ipratropium (Duoneb 3 Mg/0.5 Mg (3 Ml) Ud) 3 ml IH Q6 [facility] Clotrimazole (Lotrimin 1%) 1 gm TOP BID [facility] Last Admin: 12/23/17 17:35 Dose: 1 applic Vancomycin HCl (Vancomycin 1gm) 1 gm in 250 mls @ 167 mls/hr IVPB Q12H [facility] PRN Reason: Protocol Sodium Chloride (Sodium Chloride 0.9%) 1,000 mls @ 100 mls/hr IV .Q10H [facility] Last Admin: 12/23/17 16:16 Dose: 100 mls/hr eMAR Start Stop Document 12/23/17 16:16 MCV (Rec: 12/23/17 16:17 [id number]) Intravenous Solution Start Date 12/23/17 Start Time 16:17 Piperacillin Sod/Tazobactam Sod (Zosyn 3.375 In Ns 100ml) 100 mls @ 200 mls/hr IVPB Q6 [facility] PRN Reason: Protocol Stop: 12/24/17 00:29 Last Admin: 12/23/17 17:34 Dose: 200 mls/hr eMAR Start Stop Document 12/23/17 17:34 MCV (Rec: 12/23/17 17:34 [id number]) Intravenous Solution Start Date 12/23/17 Start Time 17:34 Piperacillin Sod/Tazobactam Sod (Zosyn 3.375 In Ns 100ml) 100 mls @ 200 mls/hr IVPB Q6 [facility] PRN Reason: Protocol Lactic Acid (Lac-Hydrin 12% Lotion (225 G)) 1 gm EXT Q12 [facility] Non-Formulary Medication (Mometasone Furoate [Asmanex]) 110 mcg IH DAILY [facility] Nystatin (Nystop Topical Powder) 0 gm TOP BID [facility] Last Admin: 12/23/17 17:34 Dose: 1 applic Petrolatum (Desitin Maximum Strength Topical 40% Oint) 0 gm TOP BID [facility] Last Admin: 12/23/17 19:00 Dose: 1 applic Polyethylene Glycol (Miralax) 17 gm PO DAILY [facility] Discontinued Medications Vancomycin HCl (Vancomycin 1gm) 1 gm in 250 mls @ 167 mls/hr IVPB STAT STA PRN Reason: Protocol Stop: 12/23/17 15:18 Last Admin: 12/23/17 16:16 Dose: 167 mls/hr eMAR Start Stop Document 12/23/17 16:16 MCV (Rec: 12/23/17 16:16 [facility]CV [id number]) Intravenous Solution Start Date 12/23/17 Start Time 16:16 Piperacillin Sod/Tazobactam Sod (Zosyn 3.375 In Ns 100ml) 100 mls @ 200 mls/hr IVPB STAT STA PRN Reason: Protocol Stop: 12/23/17 14:18 Last Admin: 12/23/17 14:46 Dose: 200 mls/hr eMAR Start Stop Document 12/23/17 14:46 EQ (Rec: 12/23/17 14:47 EQ [id number]) Intravenous Solution Start Date 12/23/17 Start Time 14:47 Ibuprofen (Motrin Tab) 600 mg PO STAT STA Stop: 12/23/17 18:50 Disposition/Present on Arrival - Present on Arrival Any Indicators Present on Arrival: No History of DVT/PE: No History of Uncontrolled Diabetes: No Urinary Catheter: Yes History of Decub. Ulcer: No History Surgical Site Infection Following: None - Disposition Have Diagnosis and Disposition been Completed?: Yes Diagnosis: Cellulitis, Dislodged gastrostomy tube, Abdominal pain Disposition: HOSPITALIZED Disposition Time: 14:00 Patient Plan: Admission Patient Problems: Current Active Problems Problem Status Onset Cellulitis Acute Dislodged gastrostomy tube Acute Condition: STABLE
[2017-12-23 10:56] LABS: BASO # 0.03 K/mm3 (0.0-2.0); BASO % 0.2 % (0.0-3.0); EOS # 0.3 (0.0-0.7); EOS % 2.6 % (1.5-5.0); GRAN # 10.03 (1.4-6.5); GRAN % 80.9 % (50.0-68.0); HEMOGLOBIN 9.6 g/dL (14.0-18.0); LYMPH # 0.8 (1.2-3.4); LYMPH % 6.1 % (22.0-35.0); MEAN CELL VOLUME 88.2 fl (80.0-105.0); MEAN CORPUSCULAR HEMOGLOBIN 29.1 pg (25.0-35.0); MEAN PLATELET VOLUME 8.5 fl (7.0-11.0); MONO # 1.3 (0.1-0.6); MONO % 10.2 % (1.0-6.0); RBC 3.3 10^6/uL (3.5-6.1); RED CELL DISTRIBUTION WIDTH 13.8 % (11.5-14.5); WHITE BLOOD COUNT 12.4 10^3/ul (4.5-11.0)
[2017-12-23 11:04] LABS: INR 1.53 (0.93-1.08); PARTIAL THROMBOPLASTIN TIME 29.9 Seconds (25.1-36.5); PROTHROMBIN TIME 17.7 SECONDS (9.4-12.5)
--- NOTE | 2017-12-23 11:06 | CP.PCM.CON ---
History of Present Illness - History of Present Illness History of Present Illness: Consult note for Dr. Patel Clint is a 52 yo man with PMHx COPD and laryngeal squamous cell carcinoma s/p tracheostomy who presented today for radiation therapy with pain and drainage from his PEG tube site. PEG tube was first placed via open gastrectomy Nov 07 after the pt was found to have a partially-obstructing laryngeal mass. He presented with pain and drainage from PEG 12/16. This was revised and larger diameter G-tube was inserted 12/18. 1 week ago the patient was seen with pain and drainage from his PEG 12/16. This was revided and larger diameter G-tube was inserted 12/18. Today he noted worsening drainage of serous fluid and stomach contents from the tube site while at radiation treatment today. He states that this has gotten worse over the last two days. He is still able to tolerate PO liquids and solids in addition to liquid per G-tube. He has been inconsistent about dressing changes and wound site care. ROS: denies fevers, chills, chest pain, nausea, vomiting. PMH: COPD, laryngeal SCC, alcohol abuse PSH: tracheostomy, G-tube placement Meds: per record All: none Social: former smoker, former EtOH abuse FHx: none Past Patient History - Infectious Disease Hx of Infectious Diseases: None - Past Medical History & Family History Past Medical History?: Yes - Past Social History Smoking Status: Heavy Smoker > 10 Cigarettes Daily - CARDIAC Hx Pacemaker: No - PULMONARY Hx Chronic Obstructive Pulmonary Disease (COPD): Yes Other/Comment: Collared trach tube - NEUROLOGICAL Hx Paralysis: No - HEENT Hx HEENT Problems: Yes (USES GLASSES FOR READING) - ENDOCRINE/METABOLIC Hx Endocrine Disorders: No - HEMATOLOGICAL/ONCOLOGICAL Hx Blood Transfusions: No Hx Blood Transfusion Reaction: No - INTEGUMENTARY Hx Dermatological Problems: No - MUSCULOSKELETAL/RHEUMATOLOGICAL Hx Musculoskeletal Disorders: No - GASTROINTESTINAL Hx Gastrointestinal Disorders: No Other/Comment: Gtube - GENITOURINARY/GYNECOLOGICAL Hx Genitourinary Disorders: Yes Other/Comment: HX OF FREQUENT URINATION ON MEDS - PSYCHIATRIC Hx Psychophysiologic Disorder: No Hx Substance Use: No - SURGICAL HISTORY Other/Comment: Gtube. Trach (collar) - ANESTHESIA Hx Anesthesia: Yes Hx Anesthesia Reactions: No Hx Malignant Hyperthermia: No Meds Allergies/Adverse Reactions: Allergies Allergy/AdvReac Type Severity Reaction Status Date / Time No Known Allergies Allergy Verified 12/15/17 20:45 Physical Exam - Constitutional Appears: Well, Cachectic, Chronically Ill - Head Exam Head Exam: ATRAUMATIC Additional comments: Significant perioral dermatitis consistent with radiation dermatitis. - Eye Exam Eye Exam: Normal appearance - Neck Exam Additional comments: Tracheostomy in place. No drainage from ostomy site. Pt expels green color mucus from ostomy with coughing. - Respiratory Exam Respiratory Exam: NORMAL BREATHING PATTERN. absent: Accessory Muscle Use - GI/Abdominal Exam Additional comments: PEG tube in place, loosely adherent to abdominal wall. ligatures x2 in place. 4cm linear ulcer associated with erythema and maceration inferior to gastrostomy site. Clear serious fluid draining from ostomy. Associated tenderness to palpation. No induration or fluctuance palpated. - Neurological Exam Neurological exam: Alert, Oriented x3 - Psychiatric Exam Psychiatric exam: Normal Affect - Skin Skin Exam: Dry Results - Vital Signs Recent Vital Signs: Last Vital Signs Temp 98.8 F 12/23/17 09:48 Pulse 78 12/23/17 09:48 Resp 18 12/23/17 09:48 BP Pulse Ox 98 12/23/17 09:48 - Labs Result Diagrams: 12/23/17 10:38 12/23/17 10:38 Assessment & Plan - Assessment and Plan (Free Text) Assessment: 52M with PMHx of laryngeal SCC s/p tracheostomy and gastrostomy, presenting for drainage from gastrostomy site and associated skin ulceration. 1. Cellulitis and ulceration 2/2 gastric acid contents from gastrostomy site - Wound care with Silvadine around ulceration. Dressing placed around tube to absorb excess drainage. - Close follow-up - Case Discussed with Dr. Patel
[2017-12-23 11:09] LABS: ALB/GLOB RATIO 0.9 (1.1-1.8); ALT/SGPT 26 U/L (7-56); AST/SGOT 36 U/L (17-59); BLOOD UREA NITROGEN 12 mg/dL (7-21); CALCIUM 9.4 mg/dL (8.4-10.5); GFR AFRICAN-AMERICAN > 60; GFR NON-AFRICAN AMERICAN > 60; LIPASE 220 U/L (23-300)
[2017-12-23] MEDS ORDERED: Iohexol 350 MG/100 ML VIAL ONE (11:17)
[2017-12-23] MEDS ORDERED: Vancomycin 1gm in NS 250ml 1 GM/250 ML BAG IVPB STA (13:49)
[2017-12-23] MEDS ORDERED: Piperacillin/Tazobact 3.375 gm 100 ML IVPB STA (13:49)
--- NOTE | 2017-12-23 14:13 | CT ---
PROCEDURE: CT Abdomen and Pelvis with contrast HISTORY: abdominal pain COMPARISON: None. TECHNIQUE: Contrast dose: 100 cc of Omni 350 Radiation dose: Total exam DLP = 162 mGy-cm. This CT exam was performed using one or more of the following dose reduction techniques: Automated exposure control, adjustment of the mA and/or kV according to patient size, and/or use of iterative reconstruction technique. FINDINGS: LOWER THORAX: There is a gastrostomy tube with the tip in the gastric antrum. There is mild soft tissue swelling at the entry point. There is a small amount of air along side the catheter. LIVER: Unremarkable. No gross lesion or ductal dilatation. GALLBLADDER AND BILE DUCTS: Unremarkable. PANCREAS: Unremarkable. No gross lesion or ductal dilatation. SPLEEN: Unremarkable. ADRENALS: Unremarkable. No mass. KIDNEYS AND URETERS: Unremarkable. No hydronephrosis. No solid mass. VASCULATURE: Unremarkable. No aortic aneurysm. BOWEL: Unremarkable. No obstruction. No gross mural thickening. There is mild constipation APPENDIX: Normal appendix. PERITONEUM: Unremarkable. No free fluid. No free air. LYMPH NODES: Unremarkable. No enlarged lymph nodes. BLADDER: Unremarkable. REPRODUCTIVE: Unremarkable. BONES: No acute fracture. OTHER FINDINGS: None. IMPRESSION: No acute intra-abdominal findings
[2017-12-23] MEDS ORDERED: Sodium Chloride 0.9% 1,000 ML IV SCH (15:45)
--- NOTE | 2017-12-23 15:58 | CP.PCM.HP ---
<LexyElizabeth - Last Filed: 12/23/17 16:01> History of Present Illness - History of Present Illness History of Present Illness: Elizabeth Pugh DO PGY1 - IM H&P for Dr. Ren CC: G-tube site pain, drainage, and erythema HPI: Pt is a 52 yo M with PMH of pharyngeal CA s/p tracheostomy, g-tube, and COPD presents to ED due to discharge around g-tube insertion site, with associated redness and pain. Patient was recently discharged after treatment for pneumonia and cellulitis. He reports that since discharge, his cough has been steadily improving, but the pain and redness around the g-tube site has been getting worse. He denies fever, chills, nausea, vomiting, diarrhea, constipation. He does report abdominal pain. PMH: Pharyngeal squamous cell carcinoma, COPD Surg: Tracheostomy and g-tube All: NKDA FHx: Sister Breast CA SH: Admits to 2 ppd tobacco use for 40 yrs, quit 2 months ago. Social EtOH use. Former IVDA. Oncologist: Maxim Present on Admission - Present on Admission Any Indicators Present on Admission: No Past Patient History - Infectious Disease Hx of Infectious Diseases: None - Past Medical History & Family History Past Medical History?: Yes - Past Social History Smoking Status: Heavy Smoker > 10 Cigarettes Daily - CARDIAC Hx Pacemaker: No - PULMONARY Hx Chronic Obstructive Pulmonary Disease (COPD): Yes Other/Comment: Collared trach tube - NEUROLOGICAL Hx Paralysis: No - HEENT Hx HEENT Problems: Yes (USES GLASSES FOR READING) - ENDOCRINE/METABOLIC Hx Endocrine Disorders: No - HEMATOLOGICAL/ONCOLOGICAL Hx Blood Transfusions: No Hx Blood Transfusion Reaction: No - INTEGUMENTARY Hx Dermatological Problems: No - MUSCULOSKELETAL/RHEUMATOLOGICAL Hx Musculoskeletal Disorders: No - GASTROINTESTINAL Hx Gastrointestinal Disorders: No Other/Comment: Gtube - GENITOURINARY/GYNECOLOGICAL Hx Genitourinary Disorders: Yes Other/Comment: HX OF FREQUENT URINATION ON MEDS - PSYCHIATRIC Hx Psychophysiologic Disorder: No Hx Substance Use: No - SURGICAL HISTORY Other/Comment: Gtube. Trach (collar) - ANESTHESIA Hx Anesthesia: Yes Hx Anesthesia Reactions: No Hx Malignant Hyperthermia: No Meds Allergies/Adverse Reactions: Allergies Allergy/AdvReac Type Severity Reaction Status Date / Time No Known Allergies Allergy Verified 12/15/17 20:45 Physical Exam - Constitutional Appears: Non-toxic, No Acute Distress, Cachectic, Chronically Ill - Head Exam Head Exam: ATRAUMATIC, NORMOCEPHALIC - Eye Exam Eye Exam: EOMI, Normal appearance, PERRL - ENT Exam ENT Exam: Mucous Membranes Dry Additional comments: Erythema on chin and neck secondary to radiation Trach in place with clear secretions - Neck Exam Neck exam: Positive for: Full Rom. Negative for: Tenderness - Respiratory Exam Respiratory Exam: Clear to Auscultation Bilateral, NORMAL BREATHING PATTERN - Cardiovascular Exam Cardiovascular Exam: RRR, +S1, +S2 - GI/Abdominal Exam GI & Abdominal Exam: Normal Bowel Sounds, Soft, Tenderness (to superficial palpation around g tube). absent: Distended, Firm, Guarding, Rebound, Rigid - Extremities Exam Extremities exam: Positive for: normal inspection. Negative for: calf tenderness, pedal edema - Neurological Exam Neurological exam: Alert, CN II-XII Intact, Oriented x3 - Psychiatric Exam Psychiatric exam: Normal Affect, Normal Mood - Skin Additional comments: Erythema around site of g-tube with 4cm linear ulcertion inferior to g-tube. 10cm erythema tracking to groin Results - Vital Signs Recent Vital Signs: Last Vital Signs Temp 98.8 F 12/23/17 09:48 Pulse 75 12/23/17 15:06 Resp 18 12/23/17 15:06 BP 138/71 12/23/17 15:06 Pulse Ox 97 12/23/17 15:06 - Labs Result Diagrams: 12/23/17 10:38 12/23/17 10:38 Assessment & Plan - Assessment and Plan (Free Text) Assessment: 52 yo M with PMH of pharyngeal CA s/p tracheostomy and g-tube and COPD admitted for g-tube malfunction and cellulitis. Plan: Abdominal Cellulitis - Patient has some drainage, erythema, and pain around site of G tube - CT A/P shows G tube in place with distal end inside antrum of stomach - Ordered blood cultures; obtained wound culture; ordered procal - Patient afebrile, with mild leukocytosis; VSS - Start Vanc and Zosyn; patient was on PO doxy as outpatient - Clotrimazone topical for likely fungal component - IVF NS@100 - Motrin for pain - Wound care requested - Requested ID consult; appreciate recs H/o COPD - Cont home medications H/o Nicotine abuse - Nicotine patch PRN GI/DVT PPx - Protonix - Lovenox Pt seen and discussed in detail with Dr. Ren <Francisco J Ren - Last Filed: 12/23/17 17:37> Results - Vital Signs Recent Vital Signs: Last Vital Signs Temp 98.8 F 12/23/17 16:47 Pulse 72 12/23/17 16:47 Resp 18 12/23/17 16:47 BP 97/57 L 12/23/17 16:47 Pulse Ox 97 12/23/17 15:06 - Labs Result Diagrams: 12/23/17 10:38 12/23/17 10:38 Attending/Attestation - Attestation I have personally seen and examined this patient.: Yes I have fully participated in the care of the patient.: Yes I have reviewed all pertinent clinical information: Yes Notes (Text): 12/23/17 17:16 Medical record note made by the resident after discussion with my direction and input after the patient was personally seen and examined by me. I have reviewed the chart and agree that the record accurately reflects by personal performance of the history, physical exam, data review, and medical decision-making, in the course for the patient. I have also personally directed the plan of care. 52 year old male with PMH of Laryngeal cancer SP tracheostomy and G-tube, COPD was recently treated for cellulitis around site of G-tube and Pneumonia is readmitted with redness and swelling around PEG tube area, will start patient on IV antibiotics, we will follow up culture.Surgery evaluation is appreciated. 12/23/17 17:35
[2017-12-23] MEDS: Nystatin 100,000 Units/gm Topical Pow(15 gm) TOP SCH (17:34)
[2017-12-23] MEDS: Piperacillin/Tazobact 3.375 gm 100 ML IVPB SCH ×3 (17:34→23:53)
[2017-12-23] MEDS: Clotrimazole 1% Cream(30 gm) TOP SCH (17:35)
[2017-12-23] MEDS ORDERED: Piperacillin/Tazobact 2.25gm 2.25 GM/100 ML BAG IVPB SCH (18:00)
--- NOTE | 2017-12-23 18:20 | CP.PCM.CON ---
History of Present Illness - History of Present Illness History of Present Illness: Infectious Disease Consultation: December 23, 2017 52 yo male with discharge from G-tube insertion site. Patient was recently in hospital for treatment of cellulitis and pneumonia. Was on Vancomycin, Cefepime , and Doxycycline. Given Doxycycline on discharge from the hospital on last recent hospitalization. Sent to [facility] this time by radiation oncology. Erythema and induration of the G-tube site. He states pain of 7 out of 10. PMHx: Pharyngeal squamous cell carcinoma, COPD PSHx: Tracheostomy, G-tube Allergies: NKDA Social Hx: 2 ppd tobacco use for 40 years Social EtOH Formal IVDA. Active Medications Albuterol/Ipratropium (Duoneb 3 Mg/0.5 Mg (3 Ml) Ud) 3 ml IH Q6 [facility] Clotrimazole (Lotrimin 1%) 1 gm TOP BID [facility] Last Admin: 12/23/17 17:35 Dose: 1 applic Vancomycin HCl (Vancomycin 1gm) 1 gm in 250 mls @ 167 mls/hr IVPB Q12H [facility] PRN Reason: Protocol Sodium Chloride (Sodium Chloride 0.9%) 1,000 mls @ 100 mls/hr IV .Q10H [facility] Last Admin: 12/23/17 16:16 Dose: 100 mls/hr Piperacillin Sod/Tazobactam Sod (Zosyn 3.375 In Ns 100ml) 100 mls @ 200 mls/hr IVPB Q6 [facility] PRN Reason: Protocol Stop: 12/24/17 00:29 Last Admin: 12/23/17 17:34 Dose: 200 mls/hr Lactic Acid (Lac-Hydrin 12% Lotion (225 G)) 1 gm EXT Q12 [facility] Non-Formulary Medication (Mometasone Furoate [Asmanex]) 110 mcg IH DAILY [facility] Nystatin (Nystop Topical Powder) 0 gm TOP BID [facility] Last Admin: 12/23/17 17:34 Dose: 1 applic Petrolatum (Desitin Maximum Strength Topical 40% Oint) 0 gm TOP BID [facility] Polyethylene Glycol (Miralax) 17 gm PO DAILY [facility] Family Hx: Breast Cancer - Sister ROS: No fevers, chills, nausea, vomiting, diarrhea. No cough or SOB. No melena, hematuria, hematemesis, hematochezia, depression, anxiety. Past Patient History - Infectious Disease Hx of Infectious Diseases: None - Past Medical History & Family History Past Medical History?: Yes - Past Social History Smoking Status: Heavy Smoker > 10 Cigarettes Daily - CARDIAC Hx Pacemaker: No - PULMONARY Hx Chronic Obstructive Pulmonary Disease (COPD): Yes Other/Comment: Collared trach tube - NEUROLOGICAL Hx Paralysis: No - HEENT Hx HEENT Problems: Yes (USES GLASSES FOR READING) - ENDOCRINE/METABOLIC Hx Endocrine Disorders: No - HEMATOLOGICAL/ONCOLOGICAL Hx Blood Transfusions: No Hx Blood Transfusion Reaction: No - INTEGUMENTARY Hx Dermatological Problems: No - MUSCULOSKELETAL/RHEUMATOLOGICAL Hx Musculoskeletal Disorders: No - GASTROINTESTINAL Hx Gastrointestinal Disorders: No Other/Comment: Gtube - GENITOURINARY/GYNECOLOGICAL Hx Genitourinary Disorders: Yes Other/Comment: HX OF FREQUENT URINATION ON MEDS - PSYCHIATRIC Hx Psychophysiologic Disorder: No Hx Substance Use: No - SURGICAL HISTORY Other/Comment: Gtube. Trach (collar) - ANESTHESIA Hx Anesthesia: Yes Hx Anesthesia Reactions: No Hx Malignant Hyperthermia: No Meds Allergies/Adverse Reactions: Allergies Allergy/AdvReac Type Severity Reaction Status Date / Time No Known Allergies Allergy Verified 12/15/17 20:45 - Medications Medications: Current Medications Albuterol/Ipratropium (Duoneb 3 Mg/0.5 Mg (3 Ml) Ud) 3 ml IH Q6 [facility] Clotrimazole (Lotrimin 1%) 1 gm TOP BID [facility] Last Admin: 12/23/17 17:35 Dose: 1 applic Vancomycin HCl (Vancomycin 1gm) 1 gm in 250 mls @ 167 mls/hr IVPB Q12H [facility] PRN Reason: Protocol Sodium Chloride (Sodium Chloride 0.9%) 1,000 mls @ 100 mls/hr IV .Q10H [facility] Last Admin: 12/23/17 16:16 Dose: 100 mls/hr Piperacillin Sod/Tazobactam Sod (Zosyn 3.375 In Ns 100ml) 100 mls @ 200 mls/hr IVPB Q6 [facility] PRN Reason: Protocol Stop: 12/24/17 00:29 Last Admin: 12/23/17 17:34 Dose: 200 mls/hr Lactic Acid (Lac-Hydrin 12% Lotion (225 G)) 1 gm EXT Q12 [facility] Non-Formulary Medication (Mometasone Furoate [Asmanex]) 110 mcg IH DAILY [facility] Nystatin (Nystop Topical Powder) 0 gm TOP BID [facility] Last Admin: 12/23/17 17:34 Dose: 1 applic Petrolatum (Desitin Maximum Strength Topical 40% Oint) 0 gm TOP BID [facility] Polyethylene Glycol (Miralax) 17 gm PO DAILY [facility] Physical Exam - Constitutional Appears: Non-toxic, No Acute Distress, Cachectic, Chronically Ill - Head Exam Head Exam: ATRAUMATIC, NORMOCEPHALIC - Eye Exam Eye Exam: EOMI, PERRL Pupil Exam: NORMAL ACCOMODATION, PERRL - ENT Exam ENT Exam: Mucous Membranes Moist Additional comments: Erythema on chin and neck secondary to radiation Trach in place with clear secretions - Neck Exam Neck exam: Positive for: Full Rom, Normal Inspection - Respiratory Exam Respiratory Exam: Clear to Auscultation Bilateral, NORMAL BREATHING PATTERN - Cardiovascular Exam Cardiovascular Exam: REGULAR RHYTHM, RRR, +S1, +S2 - GI/Abdominal Exam GI & Abdominal Exam: Normal Bowel Sounds, Soft, Tenderness - Extremities Exam Extremities exam: Positive for: normal inspection - Neurological Exam Neurological exam: Alert, CN II-XII Intact, Oriented x3 - Psychiatric Exam Psychiatric exam: Normal Affect, Normal Mood - Skin Additional comments: Erythema around site of g-tube with 4cm linear ulcertion inferior to g-tube. 10cm erythema tracking to groin Results - Vital Signs Recent Vital Signs: Last Vital Signs Temp 98.8 F 12/23/17 16:47 Pulse 72 12/23/17 16:47 Resp 18 12/23/17 16:47 BP 97/57 L 12/23/17 16:47 Pulse Ox 97 12/23/17 15:06 - Labs Result Diagrams: 12/23/17 10:38 12/23/17 10:38 Assessment & Plan - Assessment and Plan (Free Text) Assessment: 52 yo male with past medical history pharyngeal Cancer s/p tracheostomy with G-tube and COPD. Patient sent to [facility] from radiation oncology for G-tube malfunction and cellulitis around G-tube site. Started on Vancomycin and Zosyn for antibiotic coverage. Local wound care. Mild leukocytosis. Thick sputum production. Afebrile. Supportive care. Spoke with Dr. Ren regarding case. Thank you for allowing me to participate in the care of the patient, we will follow with you.
[2017-12-23] MEDS: Zinc Oxide Topical 40% Oint (Desitin) TOP SCH (19:00)
[2017-12-23] MEDS: Albuterol-Ipratrop 3 mg / 0.5 (3 ml) UD IH SCH (20:27)
[2017-12-23] MEDS: Vancomycin 1gm in NS 250ml 1 GM/250 ML BAG IVPB SCH (21:26)
[2017-12-23] MEDS: Ammonium Lactate 12% Lotion (225 g) EXT SCH (21:33)
[2017-12-24] MEDS: Albuterol-Ipratrop 3 mg / 0.5 (3 ml) UD IH SCH ×4 (01:45→20:30)
[2017-12-24] MEDS: Piperacillin/Tazobact 3.375 gm 100 ML IVPB SCH ×3 (06:15→17:11)
[2017-12-24 06:53] LABS: ALB/GLOB RATIO 0.8 (1.1-1.8); ALBUMIN 2.8 g/dL (3.0-4.8); ALT/SGPT 23 U/L (7-56); AST/SGOT 21 U/L (17-59); BASO # 0.04 K/mm3 (0.0-2.0); BASO % 0.4 % (0.0-3.0); BLOOD UREA NITROGEN 9 mg/dL (7-21); EOS # 0.3 (0.0-0.7); EOS % 3.1 % (1.5-5.0); GFR AFRICAN-AMERICAN > 60; GFR NON-AFRICAN AMERICAN > 60; GRAN # 8.9 (1.4-6.5); GRAN % 83.8 % (50.0-68.0); HEMOGLOBIN 9.7 g/dL (14.0-18.0); LYMPH # 0.6 (1.2-3.4); LYMPH % 5.4 % (22.0-35.0); MEAN CELL VOLUME 88.8 fl (80.0-105.0); MEAN CORPUSCULAR HEMOGLOBIN 28.7 pg (25.0-35.0); MEAN CORPUSCULAR HGB CONC 32.3 g/dl (31.0-37.0); MEAN PLATELET VOLUME 8.5 fl (7.0-11.0); MONO # 0.8 (0.1-0.6); MONO % 7.3 % (1.0-6.0); RBC 3.38 10^6/uL (3.5-6.1); RED CELL DISTRIBUTION WIDTH 14.3 % (11.5-14.5); WHITE BLOOD COUNT 10.6 10^3/ul (4.5-11.0)
--- NOTE | 2017-12-24 07:36 | CP.PCM.PN ---
Subjective - Date & Time of Evaluation Date of Evaluation: 12/24/17 Time of Evaluation: 07:33 - Subjective Subjective: Surgery Pt seen and examined. No acute events. c/o pain and drainage from gastrostomy site. Dressing changed this AM. Objective - Vital Signs/Intake and Output Vital Signs (last 24 hours): Temp Pulse Resp BP Pulse Ox 98.1 F 83 20 101/53 L 97 12/23/17 23:18 12/23/17 23:18 12/23/17 23:18 12/23/17 23:18 12/23/17 23:18 Intake and Output: 12/24/17 12/24/17 06:59 18:59 Intake Total 1860 Output Total 550 Balance 1310 - Medications Medications: Current Medications Albuterol/Ipratropium (Duoneb 3 Mg/0.5 Mg (3 Ml) Ud) 3 ml IH Q6 [facility] Last Admin: 12/24/17 01:45 Dose: 3 ml Clotrimazole (Lotrimin 1%) 1 gm TOP BID [facility] Last Admin: 12/23/17 17:35 Dose: 1 applic Vancomycin HCl (Vancomycin 1gm) 1 gm in 250 mls @ 167 mls/hr IVPB Q12H [facility] PRN Reason: Protocol Last Admin: 12/23/17 21:26 Dose: 167 mls/hr Sodium Chloride (Sodium Chloride 0.9%) 1,000 mls @ 100 mls/hr IV .Q10H [facility] Last Admin: 12/23/17 16:16 Dose: 100 mls/hr Piperacillin Sod/Tazobactam Sod (Zosyn 3.375 In Ns 100ml) 100 mls @ 200 mls/hr IVPB Q6 [facility] PRN Reason: Protocol Last Admin: 12/24/17 06:15 Dose: 200 mls/hr Lactic Acid (Lac-Hydrin 12% Lotion (225 G)) 1 gm EXT Q12 [facility] Last Admin: 12/23/17 21:33 Dose: Not Given Non-Formulary Medication (Mometasone Furoate [Asmanex]) 110 mcg IH DAILY [facility] Nystatin (Nystop Topical Powder) 0 gm TOP BID [facility] Last Admin: 12/23/17 17:34 Dose: 1 applic Petrolatum (Desitin Maximum Strength Topical 40% Oint) 0 gm TOP BID [facility] Last Admin: 12/23/17 19:00 Dose: 1 applic Polyethylene Glycol (Miralax) 17 gm PO DAILY [facility] - Labs Labs: 12/24/17 06:27 12/24/17 06:27 PT 17.7 SECONDS (9.4-12.5) H 12/23/17 10:38 INR 1.53 (0.93-1.08) H 12/23/17 10:38 APTT 29.9 Seconds (25.1-36.5) 12/23/17 10:38 - Constitutional Appears: Cachectic, Chronically Ill - Head Exam Head Exam: ATRAUMATIC, NORMAL INSPECTION, NORMOCEPHALIC - Eye Exam Eye Exam: EOMI, Normal appearance, PERRL Pupil Exam: NORMAL ACCOMODATION, PERRL - ENT Exam ENT Exam: Mucous Membranes Moist. absent: Normal Exam - Neck Exam Neck Exam: Full ROM. absent: Normal Inspection Additional comments: Trach collar in place. draining oral secretion from trach stie. Skin dry, hyperpigmented, erythema. - Respiratory Exam Respiratory Exam: absent: NORMAL BREATHING PATTERN - GI/Abdominal Exam GI & Abdominal Exam: Soft, Tenderness, Normal Bowel Sounds. absent: Distended, Firm, Guarding, Rigid, Rebound Additional comments: gatrostomy tube site has gatric secretion draining. erythematoud 3cm around it. inferior to it 13x5cm erythema, 12x3 excoriation . general dry skin outside of erythema - Extremities Exam Extremities Exam: Full ROM, Normal Capillary Refill, Normal Inspection. absent : Joint Swelling, Pedal Edema - Back Exam Back Exam: NORMAL INSPECTION - Neurological Exam Neurological Exam: Alert, Awake, CN II-XII Intact, Normal Gait, Oriented x3 - Psychiatric Exam Psychiatric exam: Normal Affect, Normal Mood - Skin Skin Exam: Erythema, Mottled, Rash, Warm. absent: Intact, Normal Color Assessment and Plan - Assessment and Plan (Free Text) Assessment: 52M with PMHx of laryngeal SCC s/p tracheostomy and gastrostomy, presenting for drainage from gastrostomy site and associated skin ulceration. Cellulitis and ulceration 2/2 gastric acid contents from gastrostomy site - Wound care with Silvadine or decicant around ulceration. gauze Dressing around tube to absorb excess drainage. - Close follow-up -ID / wound care on board -Will Discuss with Dr. Patel
[2017-12-24] MEDS ORDERED: Oxycodone/Acetaminophen 5/325 mg Tab PO PRN (11:22)
[2017-12-24] MEDS: Zinc Oxide Topical 40% Oint (Desitin) TOP SCH ×2 (12:07→17:13)
[2017-12-24] MEDS: Nystatin 100,000 Units/gm Topical Pow(15 gm) TOP SCH ×2 (12:07→20:04)
[2017-12-24] MEDS: POLYETHYLENE GLYCOL 3350 17 GM/Dose PACKET PO SCH (12:08)
[2017-12-24] MEDS: MOMETASONE FUROATE IH SCH (12:08)
[2017-12-24] MEDS: Vancomycin 1gm in NS 250ml 1 GM/250 ML BAG IVPB SCH ×2 (12:12→21:07)
--- NOTE | 2017-12-24 18:00 | CP.PCM.PN ---
<Elizabeth Pugh - Last Filed: 12/24/17 20:13> Subjective - Date & Time of Evaluation Date of Evaluation: 12/24/17 Time of Evaluation: 07:30 - Subjective Subjective: Elizabeth Pugh DO PGY1 - IM Progress Note Patient seen and examined at bedside. Per nursing staff, no acute events overnight. Patient continues to have some pain and drainage around the site of G tube. Denies other abdominal pain, chest pain, nausea, vomiting, diarrhea, constipation, fever, chills. Objective - Vital Signs/Intake and Output Vital Signs (last 24 hours): Temp Pulse Resp BP Pulse Ox 98.8 F 71 20 110/71 95 12/24/17 08:06 12/24/17 08:06 12/24/17 08:06 12/24/17 08:06 12/24/17 08:06 Intake and Output: 12/24/17 12/24/17 06:59 18:59 Intake Total 1860 Output Total 550 Balance 1310 - Medications Medications: Current Medications Albuterol/Ipratropium (Duoneb 3 Mg/0.5 Mg (3 Ml) Ud) 3 ml IH Q6 [facility] Last Admin: 12/24/17 07:35 Dose: 3 ml Clotrimazole (Lotrimin 1%) 1 gm TOP BID [facility] Last Admin: 12/23/17 17:35 Dose: 1 applic Vancomycin HCl (Vancomycin 1gm) 1 gm in 250 mls @ 167 mls/hr IVPB Q12H [facility] PRN Reason: Protocol Last Admin: 12/24/17 12:12 Dose: 167 mls/hr Sodium Chloride (Sodium Chloride 0.9%) 1,000 mls @ 100 mls/hr IV .Q10H [facility] Last Admin: 12/23/17 16:16 Dose: 100 mls/hr Piperacillin Sod/Tazobactam Sod (Zosyn 3.375 In Ns 100ml) 100 mls @ 200 mls/hr IVPB Q6 [facility] PRN Reason: Protocol Last Admin: 12/24/17 17:11 Dose: 200 mls/hr Ketorolac Tromethamine (Toradol) 15 mg IVP Q6 [facility] PRN Reason: Pain, severe (8-10) Last Admin: 12/24/17 17:11 Dose: 15 mg Lactic Acid (Lac-Hydrin 12% Lotion (225 G)) 1 gm EXT Q12 [facility] Last Admin: 12/23/17 21:33 Dose: Not Given Mometasone Furoate [ (Asmanex]) 110 mcg IH DAILY [facility] Last Admin: 12/24/17 12:08 Dose: Not Given Nystatin (Nystop Topical Powder) 0 gm TOP BID [facility] Last Admin: 12/24/17 12:07 Dose: 1 applic Oxycodone/Acetaminophen (Percocet 5/325 Mg Tab) 1 tab PO Q6H PRN PRN Reason: Pain, moderate (4-7) Stop: 12/27/17 11:23 Petrolatum (Desitin Maximum Strength Topical 40% Oint) 0 gm TOP BID [facility] Last Admin: 12/24/17 17:13 Dose: 1 applic Polyethylene Glycol (Miralax) 17 gm PO DAILY [facility] Last Admin: 12/24/17 12:08 Dose: 17 gm - Labs Labs: 12/24/17 06:27 12/24/17 06:27 PT 17.7 SECONDS (9.4-12.5) H 12/23/17 10:38 INR 1.53 (0.93-1.08) H 12/23/17 10:38 APTT 29.9 Seconds (25.1-36.5) 12/23/17 10:38 - Constitutional Appears: Non-toxic, No Acute Distress, Chronically Ill - Head Exam Head Exam: ATRAUMATIC, NORMOCEPHALIC - Eye Exam Eye Exam: EOMI, Normal appearance - ENT Exam ENT Exam: Mucous Membranes Moist - Neck Exam Neck Exam: Normal Inspection - Respiratory Exam Respiratory Exam: Clear to Ausculation Bilateral, NORMAL BREATHING PATTERN - Cardiovascular Exam Cardiovascular Exam: RRR - GI/Abdominal Exam GI & Abdominal Exam: Soft, Tenderness (to superficial palpation; only in areas of erythema around site of G tube), Normal Bowel Sounds. absent: Distended, Firm, Guarding, Rigid, Rebound - Extremities Exam Extremities Exam: Normal Inspection. absent: Calf Tenderness, Pedal Edema - Neurological Exam Neurological Exam: Alert, Awake, Oriented x3 - Psychiatric Exam Psychiatric exam: Normal Affect, Normal Mood - Skin Skin Exam: Dry, Normal Color Additional comments: Normal, except near site of G tube; erythema slightly improved, receding from previous skin marking made at periphery of cellulitic area Dry skin and erythema over chin and neck secondary to radiation Assessment and Plan - Assessment and Plan (Free Text) Assessment: 52 yo M with PMH of SCC of the larynx s/p tracheostomy and g-tube and COPD admitted for abdominal wall cellulitis. Plan: Abdominal Cellulitis - Erythema slightly improved today, receding from prior skin marking made at periphery of cellulitis; continues to have scant drainage - G tube changed by surgery to larger bore tube with desitin and silvadine ointments applied, followed by barrier protection - Cellulitis likely caused/worsened by gastric secretions leaking around the G tube - Blood cultures, wound cultures pending; Wound gram stain shows few yeast; procal low - Patient afebrile, leukocytosis resolved; VSS - Continue Zosyn pending cultures; per ID - Clotrimazole topical for likely fungal component - Motrin/percocet/toradol for pain - Wound care requested - Requested ID and surgery consults; appreciate recs H/o COPD - Cont home medications H/o Nicotine abuse - Nicotine patch PRN GI/DVT PPx - Protonix - Lovenox Pt seen and discussed in detail with Dr. Ren <Francisco J Ren - Last Filed: 12/26/17 15:19> Objective - Vital Signs/Intake and Output Vital Signs (last 24 hours): Temp Pulse Resp BP Pulse Ox 98.8 F 101 H 18 117/78 93 L 12/26/17 06:00 12/26/17 06:00 12/26/17 06:00 12/26/17 06:00 12/26/17 06:00 Intake and Output: 12/26/17 12/26/17 06:59 18:59 Intake Total 1380 360 Output Total 350 Balance 1380 10 - Medications Medications: Current Medications Albuterol/Ipratropium (Duoneb 3 Mg/0.5 Mg (3 Ml) Ud) 3 ml IH Q6 [facility] Last Admin: 12/26/17 13:34 Dose: 3 ml Vancomycin HCl (Vancomycin 1gm) 1 gm in 250 mls @ 167 mls/hr IVPB Q12H [facility] PRN Reason: Protocol Last Admin: 12/26/17 10:55 Dose: 167 mls/hr Piperacillin Sod/Tazobactam Sod (Zosyn 3.375 In Ns 100ml) 100 mls @ 200 mls/hr IVPB Q6 [facility] PRN Reason: Protocol Last Admin: 12/26/17 12:31 Dose: 200 mls/hr Ketorolac Tromethamine (Toradol) 15 mg IVP Q6 PRN PRN Reason: Pain, severe (8-10) Last Admin: 12/24/17 17:11 Dose: 15 mg Mometasone Furoate [ (Asmanex]) 110 mcg IH DAILY [facility] Last Admin: 12/26/17 10:54 Dose: Not Given Oxycodone/Acetaminophen (Percocet 5/325 Mg Tab) 1 tab PO Q6H PRN PRN Reason: Pain, moderate (4-7) Stop: 12/27/17 11:23 Last Admin: 12/26/17 10:54 Dose: 1 tab Polyethylene Glycol (Miralax) 17 gm PO DAILY [facility] Last Admin: 12/26/17 10:54 Dose: 17 gm - Labs Labs: 12/26/17 06:00 12/26/17 06:00 PT 17.7 SECONDS (9.4-12.5) H 12/23/17 10:38 INR 1.53 (0.93-1.08) H 12/23/17 10:38 APTT 29.9 Seconds (25.1-36.5) 12/23/17 10:38 Attending/Attestation - Attestation I have personally seen and examined this patient.: Yes I have fully participated in the care of the patient.: Yes I have reviewed all pertinent clinical information, including history, physical exam and plan: Yes Notes (Text): 12/26/17 15:18 Medical record note made by the resident after discussion with my direction and input after the patient was personally seen and examined by me. I have reviewed the chart and agree that the record accurately reflects by personal performance of the history, physical exam, data review, and medical decision-making, in the course for the patient. I have also personally directed the plan of care. 52 year old male with PMH of Laryngeal cancer SP tracheostomy and G-tube, COPD was recently treated for cellulitis around site of G-tube and Pneumonia is readmitted with redness and swelling around PEG tube area, on IV antibiotics as per ID.Blood cultures are negative.Case was discussed with Surgery team regarding ongoing leakage around PEG tube.
--- NOTE | 2017-12-24 18:47 | CP.PCM.PN ---
Subjective - Date & Time of Evaluation Date of Evaluation: 12/24/17 Time of Evaluation: 17:00 - Subjective Subjective: Infectious Disease Follow Up: December 24, 2017 52 yo male with discharge from G-tube insertion site. Patient was recently in hospital for treatment of cellulitis and pneumonia. Was on Vancomycin, Cefepime , and Doxycycline. Given Doxycycline on discharge from the hospital on last recent hospitalization. Sent to [facility] this time by radiation oncology. Erythema and induration of the G-tube site. He states pain of 7 out of 10. Started on Zosyn and Vancomycin IV. Area showing slow improvement. Objective - Vital Signs/Intake and Output Vital Signs (last 24 hours): Temp Pulse Resp BP Pulse Ox 98.8 F 71 20 110/71 95 12/24/17 08:06 12/24/17 08:06 12/24/17 08:06 12/24/17 08:06 12/24/17 08:06 Intake and Output: 12/24/17 12/24/17 06:59 18:59 Intake Total 1860 Output Total 550 Balance 1310 - Medications Medications: Current Medications Albuterol/Ipratropium (Duoneb 3 Mg/0.5 Mg (3 Ml) Ud) 3 ml IH Q6 [facility] Last Admin: 12/24/17 07:35 Dose: 3 ml Clotrimazole (Lotrimin 1%) 1 gm TOP BID [facility] Last Admin: 12/23/17 17:35 Dose: 1 applic Vancomycin HCl (Vancomycin 1gm) 1 gm in 250 mls @ 167 mls/hr IVPB Q12H [facility] PRN Reason: Protocol Last Admin: 12/24/17 12:12 Dose: 167 mls/hr Sodium Chloride (Sodium Chloride 0.9%) 1,000 mls @ 100 mls/hr IV .Q10H [facility] Last Admin: 12/23/17 16:16 Dose: 100 mls/hr Piperacillin Sod/Tazobactam Sod (Zosyn 3.375 In Ns 100ml) 100 mls @ 200 mls/hr IVPB Q6 [facility] PRN Reason: Protocol Last Admin: 12/24/17 17:11 Dose: 200 mls/hr Ketorolac Tromethamine (Toradol) 15 mg IVP Q6 PRN PRN Reason: Pain, severe (8-10) Last Admin: 12/24/17 17:11 Dose: 15 mg Lactic Acid (Lac-Hydrin 12% Lotion (225 G)) 1 gm EXT Q12 [facility] Last Admin: 12/23/17 21:33 Dose: Not Given Mometasone Furoate [ (Asmanex]) 110 mcg IH DAILY [facility] Last Admin: 12/24/17 12:08 Dose: Not Given Nystatin (Nystop Topical Powder) 0 gm TOP BID [facility] Last Admin: 12/24/17 12:07 Dose: 1 applic Oxycodone/Acetaminophen (Percocet 5/325 Mg Tab) 1 tab PO Q6H PRN PRN Reason: Pain, moderate (4-7) Stop: 12/27/17 11:23 Petrolatum (Desitin Maximum Strength Topical 40% Oint) 0 gm TOP BID [facility] Last Admin: 12/24/17 17:13 Dose: 1 applic Polyethylene Glycol (Miralax) 17 gm PO DAILY [facility] Last Admin: 12/24/17 12:08 Dose: 17 gm - Labs Labs: 12/24/17 06:27 12/24/17 06:27 PT 17.7 SECONDS (9.4-12.5) H 12/23/17 10:38 INR 1.53 (0.93-1.08) H 12/23/17 10:38 APTT 29.9 Seconds (25.1-36.5) 12/23/17 10:38 - Constitutional Appears: Non-toxic, No Acute Distress, Cachectic, Chronically Ill - Head Exam Head Exam: ATRAUMATIC, NORMOCEPHALIC - Eye Exam Eye Exam: EOMI, PERRL Pupil Exam: NORMAL ACCOMODATION, PERRL - ENT Exam ENT Exam: Mucous Membranes Moist Additional comments: Erythema on chin and neck secondary to radiation Trach in place with clear secretions - Neck Exam Neck Exam: Full ROM, Normal Inspection - Respiratory Exam Respiratory Exam: Clear to Ausculation Bilateral, NORMAL BREATHING PATTERN. absent: Rales, Rhonchi, Wheezes - Cardiovascular Exam Cardiovascular Exam: REGULAR RHYTHM, RRR, +S1, +S2 - GI/Abdominal Exam GI & Abdominal Exam: Soft, Tenderness, Normal Bowel Sounds - Extremities Exam Extremities Exam: Normal Inspection. absent: Joint Swelling, Pedal Edema - Neurological Exam Neurological Exam: Alert, Awake, CN II-XII Intact, Oriented x3 - Psychiatric Exam Psychiatric exam: Normal Affect, Normal Mood - Skin Additional comments: Erythema around site of g-tube with 4cm linear ulcertion inferior to g-tube. 10cm erythema tracking to groin Assessment and Plan - Assessment and Plan (Free Text) Assessment: 52 yo male with past medical history pharyngeal Cancer s/p tracheostomy with G-tube and COPD. Patient sent to [facility] from radiation oncology for G-tube malfunction and cellulitis around G-tube site. Started on Vancomycin and Zosyn for antibiotic coverage. Local wound care. Mild leukocytosis. Thick sputum production. Afebrile. Supportive care. Slow improvement of the cellulitis and drainage of the G-tube site. Spoke with Dr. Ren regarding case. Thank you for allowing me to participate in the care of the patient, we will follow with you.
[2017-12-24] MEDS: Clotrimazole 1% Cream(30 gm) TOP SCH (20:04)
[2017-12-24] MEDS: Ammonium Lactate 12% Lotion (225 g) EXT SCH ×2 (20:04→21:02)
[2017-12-25] MEDS: Piperacillin/Tazobact 3.375 gm 100 ML IVPB SCH ×5 (00:06→23:07)
[2017-12-25] MEDS: Albuterol-Ipratrop 3 mg / 0.5 (3 ml) UD IH SCH ×4 (01:22→20:30)
[2017-12-25 06:29] LABS: BASO # 0.03 K/mm3 (0.0-2.0); BASO % 0.3 % (0.0-3.0); EOS # 0.2 (0.0-0.7); EOS % 2.4 % (1.5-5.0); GRAN # 8.24 (1.4-6.5); GRAN % 82.4 % (50.0-68.0); HEMOGLOBIN 8.5 g/dL (14.0-18.0); LYMPH # 0.6 (1.2-3.4); LYMPH % 6.2 % (22.0-35.0); MEAN CELL VOLUME 87.1 fl (80.0-105.0); MEAN CORPUSCULAR HEMOGLOBIN 28.1 pg (25.0-35.0); MEAN CORPUSCULAR HGB CONC 32.3 g/dl (31.0-37.0); MEAN PLATELET VOLUME 8.5 fl (7.0-11.0); MONO # 0.9 (0.1-0.6); MONO % 8.7 % (1.0-6.0); RBC 3.02 10^6/uL (3.5-6.1); RED CELL DISTRIBUTION WIDTH 14.2 % (11.5-14.5)
[2017-12-25 06:47] LABS: ALB/GLOB RATIO 0.8 (1.1-1.8); ALBUMIN 2.5 g/dL (3.0-4.8); ALT/SGPT 20 U/L (7-56); AST/SGOT 24 U/L (17-59); BLOOD UREA NITROGEN 6 mg/dL (7-21); CALCIUM 8.7 mg/dL (8.4-10.5); GFR AFRICAN-AMERICAN > 60; GFR NON-AFRICAN AMERICAN > 60
[2017-12-25] MEDS: MOMETASONE FUROATE IH SCH (10:33)
[2017-12-25] MEDS: Oxycodone/Acetaminophen 5/325 mg Tab PO PRN ×2 (10:55→17:45)
[2017-12-25] MEDS: Vancomycin 1gm in NS 250ml 1 GM/250 ML BAG IVPB SCH ×2 (10:56→22:30)
[2017-12-25] MEDS: POLYETHYLENE GLYCOL 3350 17 GM/Dose PACKET PO SCH (10:57)
--- NOTE | 2017-12-25 11:18 | CP.PCM.PN ---
Subjective - Date & Time of Evaluation Date of Evaluation: 12/25/17 Time of Evaluation: 11:15 - Subjective Subjective: General Surgery: Dr Patel Pt S&E. Reports much better control of G-tube leakage now that tube was exchanged and protected with ostomy bag. Pt requesting new inner canula for tracheostomy tube which was provided and exchanged at bedside without complication. Pt is for d/c today. Will need ostomy training prior to d/c. Objective - Vital Signs/Intake and Output Vital Signs (last 24 hours): Temp Pulse Resp BP Pulse Ox 98 F 76 18 131/90 97 12/25/17 08:10 12/25/17 08:10 12/25/17 08:10 12/25/17 08:10 12/25/17 08:10 Intake and Output: 12/25/17 12/25/17 06:59 18:59 Intake Total 1040 Balance 1040 - Medications Medications: Current Medications Albuterol/Ipratropium (Duoneb 3 Mg/0.5 Mg (3 Ml) Ud) 3 ml IH Q6 [facility] Last Admin: 12/25/17 07:29 Dose: 3 ml Clotrimazole (Lotrimin 1%) 1 gm TOP BID [facility] Last Admin: 12/24/17 20:04 Dose: Not Given Vancomycin HCl (Vancomycin 1gm) 1 gm in 250 mls @ 167 mls/hr IVPB Q12H [facility] PRN Reason: Protocol Last Admin: 12/25/17 10:56 Dose: 167 mls/hr Piperacillin Sod/Tazobactam Sod (Zosyn 3.375 In Ns 100ml) 100 mls @ 200 mls/hr IVPB Q6 [facility] PRN Reason: Protocol Last Admin: 12/25/17 05:40 Dose: 200 mls/hr Ketorolac Tromethamine (Toradol) 15 mg IVP Q6 PRN PRN Reason: Pain, severe (8-10) Last Admin: 12/24/17 17:11 Dose: 15 mg Lactic Acid (Lac-Hydrin 12% Lotion (225 G)) 1 gm EXT Q12 [facility] Last Admin: 12/24/17 21:02 Dose: Not Given Mometasone Furoate [ (Asmanex]) 110 mcg IH DAILY [facility] Last Admin: 12/25/17 10:33 Dose: Not Given Nystatin (Nystop Topical Powder) 0 gm TOP BID [facility] Last Admin: 12/24/17 20:04 Dose: 1 applic Oxycodone/Acetaminophen (Percocet 5/325 Mg Tab) 1 tab PO Q6H PRN PRN Reason: Pain, moderate (4-7) Stop: 12/27/17 11:23 Last Admin: 12/25/17 10:55 Dose: 1 tab Petrolatum (Desitin Maximum Strength Topical 40% Oint) 0 gm TOP BID [facility] Last Admin: 12/24/17 17:13 Dose: 1 applic Polyethylene Glycol (Miralax) 17 gm PO DAILY [facility] Last Admin: 12/25/17 10:57 Dose: Not Given - Labs Labs: 12/25/17 06:00 12/25/17 06:00 PT 17.7 SECONDS (9.4-12.5) H 12/23/17 10:38 INR 1.53 (0.93-1.08) H 12/23/17 10:38 APTT 29.9 Seconds (25.1-36.5) 12/23/17 10:38 - Constitutional Appears: Non-toxic, No Acute Distress - Eye Exam Eye Exam: Normal appearance - ENT Exam ENT Exam: Mucous Membranes Moist Additional comments: trach in good position, minimal erythema surrounding site, no cuff leak - Respiratory Exam Respiratory Exam: absent: Accessory Muscle Use, Respiratory Distress - Cardiovascular Exam Cardiovascular Exam: REGULAR RHYTHM. absent: Tachycardia - GI/Abdominal Exam GI & Abdominal Exam: Soft. absent: Distended, Firm, Guarding, Tenderness Additional comments: excoriation improved minimal drainage with new bag apparatus - Extremities Exam Extremities Exam: absent: Pedal Edema - Neurological Exam Neurological Exam: Alert, Awake, Oriented x3 - Psychiatric Exam Psychiatric exam: Normal Affect, Normal Mood - Skin Skin Exam: Normal Color, Warm Assessment and Plan - Assessment and Plan (Free Text) Assessment: 52M with leaking G-tube Plan: leak controlled as best as possible pt will need ostomy training prior to d/c instructed to f/u in office and also to return to ED for surgical evaluation if drainage worsens will d/w Dr Jorge Bell, PGY3
[2017-12-25] MEDS: Ammonium Lactate 12% Lotion (225 g) EXT SCH (12:20)
--- NOTE | 2017-12-25 13:50 | CP.PCM.PN ---
Subjective - Date & Time of Evaluation Date of Evaluation: 12/25/17 Time of Evaluation: 12:45 - Subjective Subjective: Infectious Disease Follow Up: December 25, 2017 52 yo male with discharge from G-tube insertion site. Patient was recently in hospital for treatment of cellulitis and pneumonia. Was on Vancomycin, Cefepime , and Doxycycline. Given Doxycycline on discharge from the hospital on last recent hospitalization. Sent to [facility] this time by radiation oncology. Erythema and induration of the G-tube site. He states pain of 7 out of 10. Started on Zosyn and Vancomycin IV. Area showing slow improvement. Objective - Vital Signs/Intake and Output Vital Signs (last 24 hours): Temp Pulse Resp BP Pulse Ox 98 F 76 18 131/90 97 12/25/17 08:10 12/25/17 08:10 12/25/17 08:10 12/25/17 08:10 12/25/17 08:10 Intake and Output: 12/25/17 12/25/17 06:59 18:59 Intake Total 1040 Balance 1040 - Medications Medications: Current Medications Albuterol/Ipratropium (Duoneb 3 Mg/0.5 Mg (3 Ml) Ud) 3 ml IH Q6 [facility] Last Admin: 12/25/17 13:22 Dose: 3 ml Clotrimazole (Lotrimin 1%) 1 gm TOP BID [facility] Last Admin: 12/24/17 20:04 Dose: Not Given Vancomycin HCl (Vancomycin 1gm) 1 gm in 250 mls @ 167 mls/hr IVPB Q12H [facility] PRN Reason: Protocol Last Admin: 12/25/17 10:56 Dose: 167 mls/hr Piperacillin Sod/Tazobactam Sod (Zosyn 3.375 In Ns 100ml) 100 mls @ 200 mls/hr IVPB Q6 [facility] PRN Reason: Protocol Last Admin: 12/25/17 13:28 Dose: 200 mls/hr Ketorolac Tromethamine (Toradol) 15 mg IVP Q6 PRN PRN Reason: Pain, severe (8-10) Last Admin: 12/24/17 17:11 Dose: 15 mg Lactic Acid (Lac-Hydrin 12% Lotion (225 G)) 1 gm EXT Q12 [facility] Last Admin: 12/25/17 12:20 Dose: Not Given Mometasone Furoate [ (Asmanex]) 110 mcg IH DAILY [facility] Last Admin: 12/25/17 10:33 Dose: Not Given Nystatin (Nystop Topical Powder) 0 gm TOP BID [facility] Last Admin: 12/24/17 20:04 Dose: 1 applic Oxycodone/Acetaminophen (Percocet 5/325 Mg Tab) 1 tab PO Q6H PRN PRN Reason: Pain, moderate (4-7) Stop: 12/27/17 11:23 Last Admin: 12/25/17 10:55 Dose: 1 tab Petrolatum (Desitin Maximum Strength Topical 40% Oint) 0 gm TOP BID [facility] Last Admin: 12/24/17 17:13 Dose: 1 applic Polyethylene Glycol (Miralax) 17 gm PO DAILY [facility] Last Admin: 12/25/17 10:57 Dose: Not Given - Labs Labs: 12/25/17 06:00 12/25/17 06:00 PT 17.7 SECONDS (9.4-12.5) H 12/23/17 10:38 INR 1.53 (0.93-1.08) H 12/23/17 10:38 APTT 29.9 Seconds (25.1-36.5) 12/23/17 10:38 - Constitutional Appears: Non-toxic, No Acute Distress, Cachectic, Chronically Ill - Head Exam Head Exam: ATRAUMATIC, NORMOCEPHALIC - Eye Exam Eye Exam: EOMI, PERRL Pupil Exam: NORMAL ACCOMODATION, PERRL - ENT Exam ENT Exam: Mucous Membranes Moist Additional comments: Erythema on chin and neck secondary to radiation Trach in place with clear secretions - Neck Exam Neck Exam: Full ROM, Normal Inspection - Respiratory Exam Respiratory Exam: Clear to Ausculation Bilateral, NORMAL BREATHING PATTERN. absent: Rales, Rhonchi, Wheezes - Cardiovascular Exam Cardiovascular Exam: REGULAR RHYTHM, RRR, +S1, +S2 - GI/Abdominal Exam GI & Abdominal Exam: Soft, Tenderness, Normal Bowel Sounds. absent: Distended - Extremities Exam Extremities Exam: Normal Inspection. absent: Joint Swelling, Pedal Edema - Neurological Exam Neurological Exam: Alert, Awake, CN II-XII Intact, Oriented x3 - Psychiatric Exam Psychiatric exam: Normal Affect, Normal Mood - Skin Additional comments: Erythema around site of g-tube with 4cm linear ulceration inferior to g-tube. resolving erythema. Assessment and Plan - Assessment and Plan (Free Text) Assessment: 52 yo male with past medical history pharyngeal Cancer s/p tracheostomy with G-tube and COPD. Patient sent to [facility] from radiation oncology for G-tube malfunction and cellulitis around G-tube site. Started on Vancomycin and Zosyn for antibiotic coverage. Local wound care. Mild leukocytosis. Thick sputum production. Afebrile. Supportive care. Slow improvement of the cellulitis. Still with leak/drainage around the G-tube site. Can consider use of oral Keflex 500mg BID for 14 days on discharge. Spoke with Dr. Ren regarding case. Thank you for allowing me to participate in the care of the patient, we will follow with you.
--- NOTE | 2017-12-25 15:03 | CP.PCM.PN ---
<LexyGumelizett - Last Filed: 12/25/17 14:53> Subjective - Date & Time of Evaluation Date of Evaluation: 12/25/17 Time of Evaluation: 07:30 - Subjective Subjective: Elizabeth Pugh DO PGY1 - IM Progress Note Patient seen and examined at bedside. Per nursing staff, no acute events overnight. Patient complaining of mild pain and scant drainage from the site of the G tube, though improved since yesterday. Denies other abdominal pain, chest pain, nausea, vomiting, diarrhea, constipation, fever, chills. Objective - Vital Signs/Intake and Output Vital Signs (last 24 hours): Temp Pulse Resp BP Pulse Ox 98 F 76 18 131/90 97 12/25/17 08:10 12/25/17 08:10 12/25/17 08:10 12/25/17 08:10 12/25/17 08:10 Intake and Output: 12/25/17 12/25/17 06:59 18:59 Intake Total 1040 600 Output Total 100 Balance 1040 500 - Medications Medications: Current Medications Albuterol/Ipratropium (Duoneb 3 Mg/0.5 Mg (3 Ml) Ud) 3 ml IH Q6 [facility] Last Admin: 12/25/17 13:22 Dose: 3 ml Vancomycin HCl (Vancomycin 1gm) 1 gm in 250 mls @ 167 mls/hr IVPB Q12H [facility] PRN Reason: Protocol Last Admin: 12/25/17 10:56 Dose: 167 mls/hr Piperacillin Sod/Tazobactam Sod (Zosyn 3.375 In Ns 100ml) 100 mls @ 200 mls/hr IVPB Q6 [facility] PRN Reason: Protocol Last Admin: 12/25/17 13:28 Dose: 200 mls/hr Ketorolac Tromethamine (Toradol) 15 mg IVP Q6 PRN PRN Reason: Pain, severe (8-10) Last Admin: 12/24/17 17:11 Dose: 15 mg Mometasone Furoate [ (Asmanex]) 110 mcg IH DAILY [facility] Last Admin: 12/25/17 10:33 Dose: Not Given Oxycodone/Acetaminophen (Percocet 5/325 Mg Tab) 1 tab PO Q6H PRN PRN Reason: Pain, moderate (4-7) Stop: 12/27/17 11:23 Last Admin: 12/25/17 10:55 Dose: 1 tab Polyethylene Glycol (Miralax) 17 gm PO DAILY [facility] Last Admin: 12/25/17 10:57 Dose: Not Given - Labs Labs: 12/25/17 06:00 12/25/17 06:00 PT 17.7 SECONDS (9.4-12.5) H 12/23/17 10:38 INR 1.53 (0.93-1.08) H 12/23/17 10:38 APTT 29.9 Seconds (25.1-36.5) 12/23/17 10:38 - Additional Findings Additional findings: - Constitutional Appears: Non-toxic, No Acute Distress, Chronically Ill - Head Exam Head Exam: ATRAUMATIC, NORMOCEPHALIC - Eye Exam Eye Exam: EOMI, Normal appearance - ENT Exam ENT Exam: Mucous Membranes Moist - Neck Exam Neck Exam: Normal Inspection - Respiratory Exam Respiratory Exam: Clear to Ausculation Bilateral, NORMAL BREATHING PATTERN - Cardiovascular Exam Cardiovascular Exam: RRR - GI/Abdominal Exam GI & Abdominal Exam: Soft, Tenderness (to superficial palpation; only in areas of erythema around site of G tube), Normal Bowel Sounds. absent: Distended, Firm, Guarding, Rigid, Rebound - Extremities Exam Extremities Exam: Normal Inspection. absent: Calf Tenderness, Pedal Edema - Neurological Exam Neurological Exam: Alert, Awake, Oriented x3 - Psychiatric Exam Psychiatric exam: Normal Affect, Normal Mood - Skin Skin Exam: Dry, Normal Color Additional comments: Normal, except near site of G tube; erythema improved Colostomy bag over G tube with some thin white/yellow drainage. 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 Plan: Abdominal Cellulitis - Improving - G tube in place this morning; though later in the day, G tube dislodged during dressing change; dumont placed to maintain stoma. - Per surgery, patient will have wafer placed tomorrow to maintain better seal with G tube - Cellulitis likely caused/worsened by gastric secretions leaking around the G tube - Blood cultures negative x24 hours, wound cultures show large growth of yeast; procal low - Patient afebrile, no leukocytosis; VSS - Continue Zosyn; per ID - Clotrimazole topical for superficial fungal infection - Motrin/percocet/toradol for pain - Wound care requested - Requested ID and surgery consults; appreciate recs H/o COPD - Cont home medications H/o Nicotine abuse - Nicotine patch PRN Anemia - Normocytic, normochromic - Prior workup indicates likely anemia of chronic disease - Retic count and iron studies ordered GI/DVT PPx - Protonix - Lovenox Pt seen and discussed in detail with Dr. Ren <Francisco J Ren - Last Filed: 12/26/17 15:20> Objective - Vital Signs/Intake and Output Vital Signs (last 24 hours): Temp Pulse Resp BP Pulse Ox 98.8 F 101 H 18 117/78 93 L 12/26/17 06:00 12/26/17 06:00 12/26/17 06:00 12/26/17 06:00 12/26/17 06:00 Intake and Output: 12/26/17 12/26/17 06:59 18:59 Intake Total 1380 360 Output Total 350 Balance 1380 10 - Medications Medications: Current Medications Albuterol/Ipratropium (Duoneb 3 Mg/0.5 Mg (3 Ml) Ud) 3 ml IH Q6 [facility] Last Admin: 12/26/17 13:34 Dose: 3 ml Vancomycin HCl (Vancomycin 1gm) 1 gm in 250 mls @ 167 mls/hr IVPB Q12H [facility] PRN Reason: Protocol Last Admin: 12/26/17 10:55 Dose: 167 mls/hr Piperacillin Sod/Tazobactam Sod (Zosyn 3.375 In Ns 100ml) 100 mls @ 200 mls/hr IVPB Q6 [facility] PRN Reason: Protocol Last Admin: 12/26/17 12:31 Dose: 200 mls/hr Ketorolac Tromethamine (Toradol) 15 mg IVP Q6 PRN PRN Reason: Pain, severe (8-10) Last Admin: 12/24/17 17:11 Dose: 15 mg Mometasone Furoate [ (Asmanex]) 110 mcg IH DAILY [facility] Last Admin: 12/26/17 10:54 Dose: Not Given Oxycodone/Acetaminophen (Percocet 5/325 Mg Tab) 1 tab PO Q6H PRN PRN Reason: Pain, moderate (4-7) Stop: 12/27/17 11:23 Last Admin: 12/26/17 10:54 Dose: 1 tab Polyethylene Glycol (Miralax) 17 gm PO DAILY [facility] Last Admin: 12/26/17 10:54 Dose: 17 gm - Labs Labs: 12/26/17 06:00 12/26/17 06:00 PT 17.7 SECONDS (9.4-12.5) H 12/23/17 10:38 INR 1.53 (0.93-1.08) H 12/23/17 10:38 APTT 29.9 Seconds (25.1-36.5) 12/23/17 10:38 Attending/Attestation - Attestation I have personally seen and examined this patient.: Yes I have fully participated in the care of the patient.: Yes I have reviewed all pertinent clinical information, including history, physical exam and plan: Yes Notes (Text): 12/26/17 15:20 Medical record note made by the resident after discussion with my direction and input after the patient was personally seen and examined by me. I have reviewed the chart and agree that the record accurately reflects by personal performance of the history, physical exam, data review, and medical decision-making, in the course for the patient. I have also personally directed the plan of care.
[2017-12-26] MEDS: Albuterol-Ipratrop 3 mg / 0.5 (3 ml) UD IH SCH ×4 (01:35→19:31)
[2017-12-26] MEDS: Piperacillin/Tazobact 3.375 gm 100 ML IVPB SCH ×3 (06:15→17:42)
[2017-12-26 06:55] LABS: BASO # 0.03 K/mm3 (0.0-2.0); BASO % 0.3 % (0.0-3.0); EOS # 0.4 (0.0-0.7); EOS % 3.8 % (1.5-5.0); GRAN # 8.06 (1.4-6.5); GRAN % 81.4 % (50.0-68.0); HEMOGLOBIN 9.5 g/dL (14.0-18.0); LYMPH # 0.5 (1.2-3.4); LYMPH % 5.4 % (22.0-35.0); MEAN CELL VOLUME 87.8 fl (80.0-105.0); MEAN CORPUSCULAR HEMOGLOBIN 28.3 pg (25.0-35.0); MEAN CORPUSCULAR HGB CONC 32.2 g/dl (31.0-37.0); MEAN PLATELET VOLUME 8.5 fl (7.0-11.0); MONO # 0.9 (0.1-0.6); MONO % 9.1 % (1.0-6.0); RBC 3.36 10^6/uL (3.5-6.1); RED CELL DISTRIBUTION WIDTH 14.5 % (11.5-14.5); WHITE BLOOD COUNT 9.9 10^3/ul (4.5-11.0)
[2017-12-26 06:58] LABS: IRON 20 ug/dL (45-180)
[2017-12-26 07:07] LABS: % IRON SATURATION 13 % (20-55); TOTAL IRON BINDING CAPACITY 159 ug/dL (261-462)
[2017-12-26 07:15] LABS: ALB/GLOB RATIO 0.9 (1.1-1.8); ALBUMIN 2.7 g/dL (3.0-4.8); ALT/SGPT 29 U/L (7-56); AST/SGOT 16 U/L (17-59); BLOOD UREA NITROGEN 6 mg/dL (7-21); CALCIUM 9.1 mg/dL (8.4-10.5); GFR AFRICAN-AMERICAN > 60; GFR NON-AFRICAN AMERICAN > 60
--- NOTE | 2017-12-26 09:12 | CP.PCM.DIS ---
Provider - Provider Date of Admission: 12/23/17 13:49 Attending physician: Francisco J Ren MD Primary care physician: Christopher Cruz MD Consults: Surgery: Jorge ID: Go Time Spent in preparation of Discharge (in minutes): 45 Diagnosis - Discharge Diagnosis (1) Cellulitis Status: Acute (2) Dislodged gastrostomy tube Status: Acute Priority: High Hospital Course - Lab Results Lab Results: Micro Results 12/23/17 14:20 Abdomen Gram Stain - Final 12/23/17 14:20 Abdomen Wound Culture - Final Chrissy Albicans Most Recent Lab Values WBC 9.9 10^3/ul (4.5-11.0) 12/26/17 06:00 RBC 3.36 10^6/uL (3.5-6.1) L 12/26/17 06:00 Hgb 9.5 g/dL (14.0-18.0) L 12/26/17 06:00 Hct 29.5 % (42.0-52.0) L 12/26/17 06:00 MCV 87.8 fl (80.0-105.0) 12/26/17 06:00 MCH 28.3 pg (25.0-35.0) 12/26/17 06:00 MCHC 32.2 g/dl (31.0-37.0) 12/26/17 06:00 RDW 14.5 % (11.5-14.5) 12/26/17 06:00 Plt Count 440 10^3/uL (120.0-450.0) 12/26/17 06:00 MPV 8.5 fl (7.0-11.0) 12/26/17 06:00 Gran % 81.4 % (50.0-68.0) H 12/26/17 06:00 Lymph % (Auto) 5.4 % (22.0-35.0) L 12/26/17 06:00 [place] % (Auto) 9.1 % (1.0-6.0) H 12/26/17 06:00 Eos % (Auto) 3.8 % (1.5-5.0) 12/26/17 06:00 Baso % (Auto) 0.3 % (0.0-3.0) 12/26/17 06:00 Gran # 8.06 (1.4-6.5) H 12/26/17 06:00 Lymph # (Auto) 0.5 (1.2-3.4) L 12/26/17 06:00 [place] # (Auto) 0.9 (0.1-0.6) H 12/26/17 06:00 Eos # (Auto) 0.4 (0.0-0.7) 12/26/17 06:00 Baso # (Auto) 0.03 K/mm3 (0.0-2.0) 12/26/17 06:00 Retic Count 1.12 % (0.5-1.5) 12/25/17 06:00 PT 17.7 SECONDS (9.4-12.5) H 12/23/17 10:38 INR 1.53 (0.93-1.08) H 12/23/17 10:38 APTT 29.9 Seconds (25.1-36.5) 12/23/17 10:38 Sodium 141 mmol/L (132-148) 12/26/17 06:00 Potassium 4.0 mmol/L (3.6-5.0) 12/26/17 06:00 Chloride 108 mmol/L (98-107) H 12/26/17 06:00 Carbon Dioxide 26 mmol/L (21-33) 12/26/17 06:00 Anion Gap 12 (10-20) 12/26/17 06:00 BUN 6 mg/dL (7-21) L 12/26/17 06:00 Creatinine 0.7 mg/dl (0.8-1.5) L 12/26/17 06:00 Est GFR ( Amer) > 60 12/26/17 06:00 Est GFR (Non-Af Amer) > 60 12/26/17 06:00 Random Glucose 94 mg/dL (70-110) 12/26/17 06:00 Lactic Acid 1.0 mmol/L (0.7-2.1) 12/23/17 10:38 Calcium 9.1 mg/dL (8.4-10.5) 12/26/17 06:00 Iron 20 ug/dL (45-180) L 12/26/17 06:00 TIBC 159 ug/dL (261-462) L 12/26/17 06:00 % Saturation 13 % (20-55) L 12/26/17 06:00 Ferritin 292.0 ng/mL 12/25/17 06:00 Total Bilirubin 0.2 mg/dL (0.2-1.3) 12/26/17 06:00 AST 16 U/L (17-59) L D 12/26/17 06:00 ALT 29 U/L (7-56) 12/26/17 06:00 Alkaline Phosphatase 61 U/L (38-126) 12/26/17 06:00 Total Protein 5.7 g/dL (5.8-8.3) L 12/26/17 06:00 Albumin 2.7 g/dL (3.0-4.8) L 12/26/17 06:00 Globulin 3.0 gm/dL 12/26/17 06:00 Albumin/Globulin Ratio 0.9 (1.1-1.8) L 12/26/17 06:00 Lipase 220 U/L (23-300) 12/23/17 10:38 Procalcitonin < 0.05 NG/ML (0.19-0.49) L 12/24/17 06:27 - Hospital Course Hospital Course: Pt is a 52 yo M with PMH of SCC of the larynx s/p tracheostomy, g-tube, and COPD who initially presented to the ED due to discharge around g-tube insertion site, with associated redness and pain. Patient had recently been discharged after treatment for pneumonia and cellulitis. On admission, cultures were obtained, and patient was treated with IV antibiotics and local wound care. Blood cultures were negative, and wound culture grew Chrissy Albicans. During hospitalization, patient initially had G tube changed, with good coverage of the wound, and improving drainage, but then the tube got dislodged during a dressing change. The following day, patient's G tube was again changed with new wafer placed for packing. He was observed overnight to ensure no further complications, but the tube continued to drain. Tube, dressing, and complications were managed by surgery. Patient had stoma bag placed over the tube so that drainage could be contained. Today, cerclage was placed around tube to prevent continued leakage, and stoma bag again placed around the tube to contain any further leakage. Patient was provided with prescriptions for dressing supplies, and instructed to follow up for wound care. Patient was instructed to return to the ER for follow up with the surgical team for any future problems with his G tube. He denies any chest pain, shortness of breath, fever, chills, nausea, vomiting, diarrhea, constipation. Patient has persistent secretions from his tracheostomy, which is expected, especially considering his history of COPD and long smoking history. All questions were answered to the patient's satisfaction, and he was discharged to home. Discharge Exam - Head Exam Head Exam: ATRAUMATIC, NORMOCEPHALIC - Eye Exam Eye Exam: EOMI, Normal appearance, PERRL - ENT Exam ENT Exam: Mucous Membranes Moist Additional comments: Trach tube in place, with white secretions Chin and neck with dry, erythematous skin, secondary to radiation - Respiratory Exam Respiratory Exam: Clear to PA & Lateral, NORMAL BREATHING PATTERN - Cardiovascular Exam Cardiovascular Exam: RRR, +S1, +S2 - GI/Abdominal Exam GI & Abdominal Exam: Soft. absent: Firm, Guarding, Rebound, Rigid, Tenderness Additional comments: G tube in place, dressing in place, erythema markedly improved since admission. - Extremities Exam Extremities exam: normal inspection - Neurological Exam Neurological exam: Alert, CN II-XII Intact, Oriented x3 - Psychiatric Exam Psychiatric exam: Normal Affect, Normal Mood - Skin Skin Exam: Dry, Intact Discharge Plan - Follow Up Plan Condition: STABLE Disposition: HOME/ ROUTINE Additional Instructions: - - Follow up at the wound care center for dressing changes and G tube care; or change dressings at home as instructed by wound care nurse - For any problems with the G tube, come to the ER, and ask for the surgical team to come evaluate you, to avoid readmission - Keep site clean and dry - For any new or worsening concerns, contact your PCP immediately, or return to the ER Referrals: Christopher Cruz MD [Primary Care Provider] -
[2017-12-26] MEDS: POLYETHYLENE GLYCOL 3350 17 GM/Dose PACKET PO SCH (10:54)
[2017-12-26] MEDS: Oxycodone/Acetaminophen 5/325 mg Tab PO PRN (10:54)
[2017-12-26] MEDS: MOMETASONE FUROATE IH SCH (10:54)
[2017-12-26] MEDS: Vancomycin 1gm in NS 250ml 1 GM/250 ML BAG IVPB SCH ×2 (10:55→22:11)
--- NOTE | 2017-12-26 14:32 | RAD ---
HISTORY: r/o new PNA; thick trach secretions COMPARISON: 12/16/2017 TECHNIQUE: Chest PA and lateral FINDINGS: LUNGS: There is an increasing linear infiltrate at the right lung base. PLEURA: No significant pleural effusion identified. No pneumothorax apparent. CARDIOVASCULAR: Normal. OSSEOUS STRUCTURES: No significant abnormalities. VISUALIZED UPPER ABDOMEN: Normal. OTHER FINDINGS: None. IMPRESSION: Increasing linear infiltrate at the right lung base
--- NOTE | 2017-12-26 15:35 | CP.PCM.PN ---
<Elizabeth Pugh - Last Filed: 12/26/17 15:27> Subjective - Date & Time of Evaluation Date of Evaluation: 12/26/17 Time of Evaluation: 07:30 - Subjective Subjective: Elizabeth Pugh DO PGY1 - IM Progress Note Patient seen and examined at bedside. G tube again got displaced yesterday evening, and got dumont placed until it could be replaced today. Pain around G tube is improving, and drainage is improving. Patient is complaining of increased secretions from trach tube. Denies other abdominal pain, chest pain, nausea, vomiting, diarrhea, constipation, fever, chills. Objective - Vital Signs/Intake and Output Vital Signs (last 24 hours): Temp Pulse Resp BP Pulse Ox 98.8 F 101 H 18 117/78 93 L 12/26/17 06:00 12/26/17 06:00 12/26/17 06:00 12/26/17 06:00 12/26/17 06:00 Intake and Output: 12/26/17 12/26/17 06:59 18:59 Intake Total 1380 360 Output Total 350 Balance 1380 10 - Medications Medications: Current Medications Albuterol/Ipratropium (Duoneb 3 Mg/0.5 Mg (3 Ml) Ud) 3 ml IH Q6 [facility] Last Admin: 12/26/17 13:34 Dose: 3 ml Vancomycin HCl (Vancomycin 1gm) 1 gm in 250 mls @ 167 mls/hr IVPB Q12H [facility] PRN Reason: Protocol Last Admin: 12/26/17 10:55 Dose: 167 mls/hr Piperacillin Sod/Tazobactam Sod (Zosyn 3.375 In Ns 100ml) 100 mls @ 200 mls/hr IVPB Q6 [facility] PRN Reason: Protocol Last Admin: 12/26/17 12:31 Dose: 200 mls/hr Ketorolac Tromethamine (Toradol) 15 mg IVP Q6 PRN PRN Reason: Pain, severe (8-10) Last Admin: 12/24/17 17:11 Dose: 15 mg Mometasone Furoate [ (Asmanex]) 110 mcg IH DAILY [facility] Last Admin: 12/26/17 10:54 Dose: Not Given Oxycodone/Acetaminophen (Percocet 5/325 Mg Tab) 1 tab PO Q6H PRN PRN Reason: Pain, moderate (4-7) Stop: 12/27/17 11:23 Last Admin: 12/26/17 10:54 Dose: 1 tab Polyethylene Glycol (Miralax) 17 gm PO DAILY [facility] Last Admin: 12/26/17 10:54 Dose: 17 gm - Labs Labs: 12/26/17 06:00 12/26/17 06:00 PT 17.7 SECONDS (9.4-12.5) H 12/23/17 10:38 INR 1.53 (0.93-1.08) H 12/23/17 10:38 APTT 29.9 Seconds (25.1-36.5) 12/23/17 10:38 - Additional Findings Additional findings: - Constitutional Appears: Non-toxic, No Acute Distress, Chronically Ill - Head Exam Head Exam: ATRAUMATIC, NORMOCEPHALIC - Eye Exam Eye Exam: EOMI, Normal appearance - ENT Exam ENT Exam: Mucous Membranes Moist - Neck Exam Neck Exam: Normal Inspection - Respiratory Exam Respiratory Exam: Clear to Ausculation Bilateral, NORMAL BREATHING PATTERN - Cardiovascular Exam Cardiovascular Exam: RRR - GI/Abdominal Exam GI & Abdominal Exam: Soft, Tenderness (to superficial palpation; only in areas of erythema around site of G tube), Normal Bowel Sounds. absent: Distended, Firm, Guarding, Rigid, Rebound - Extremities Exam Extremities Exam: Normal Inspection. absent: Calf Tenderness, Pedal Edema - Neurological Exam Neurological Exam: Alert, Awake, Oriented x3 - Psychiatric Exam Psychiatric exam: Normal Affect, Normal Mood - Skin Skin Exam: Dry, Normal Color Additional comments: Normal, except near site of G tube; erythema improved Colostomy bag over G tube with some thin white/yellow drainage. 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 Plan: Abdominal Cellulitis - Improving - G tube again dislodged yesterday; replaced today with new wafer. Will monitor overnight and anticipate discharge tomorrow if no further complications - Cellulitis likely caused/worsened by gastric secretions leaking around the G tube - Wound cultures show klaudia albicans - Patient afebrile, no leukocytosis; VSS - Continue Zosyn; per ID - Clotrimazole topical for superficial fungal infection - Motrin/percocet/toradol for pain - Wound care requested - Requested ID and surgery consults; appreciate recs H/o COPD - Cont home medications H/o Nicotine abuse - Nicotine patch PRN Anemia - Normocytic, normochromic - Repeat iron studies indicate chronic disease, with likely iron deficiency component. - Start PO iron and stool softener GI/DVT PPx - Protonix - Lovenox Pt seen and discussed in detail with Dr. Ren Assessment and Plan (1) Cellulitis Status: Acute (2) Dislodged gastrostomy tube Status: Acute <Francisco J Ren - Last Filed: 12/28/17 15:29> Objective - Vital Signs/Intake and Output Vital Signs (last 24 hours): Temp Pulse Resp BP Pulse Ox 99 F 83 20 113/73 91 L 12/28/17 09:27 12/28/17 08:09 12/28/17 08:09 12/28/17 08:09 12/28/17 08:09 Intake and Output: 12/28/17 12/28/17 06:59 18:59 Intake Total 120 720 Output Total 600 Balance -480 720 - Medications Medications: Current Medications Acetaminophen (Tylenol 325mg Tab) 650 mg PO Q6H PRN PRN Reason: Fever >100.4 F Last Admin: 12/27/17 22:38 Dose: 650 mg Albuterol/Ipratropium (Duoneb 3 Mg/0.5 Mg (3 Ml) Ud) 3 ml IH Q6 [facility] Last Admin: 12/28/17 13:46 Dose: 3 ml Amoxicillin/Clavulanate Potassium (Augmentin 500 Mg-125 Mg Tab) 1 tab PO Q8 [facility] PRN Reason: Protocol Last Admin: 12/28/17 13:22 Dose: 1 tab Ferrous Sulfate (Feosol) 324 mg PO BID [facility] Last Admin: 12/28/17 09:51 Dose: 324 mg Mometasone Furoate [ (Asmanex]) 110 mcg IH DAILY [facility] Last Admin: 12/28/17 09:52 Dose: Not Given Oxycodone/Acetaminophen (Percocet 5/325 Mg Tab) 1 tab PO Q6H PRN PRN Reason: Pain, moderate (4-7) Stop: 12/30/17 17:31 Pantoprazole Sodium (Protonix Ec Tab) 40 mg PO 0600,1600 [facility] Last Admin: 12/28/17 05:53 Dose: 40 mg Polyethylene Glycol (Miralax) 17 gm PO DAILY [facility] Last Admin: 12/28/17 09:52 Dose: 17 gm - Labs Labs: 12/27/17 06:30 12/27/17 06:30 PT 17.7 SECONDS (9.4-12.5) H 12/23/17 10:38 INR 1.53 (0.93-1.08) H 12/23/17 10:38 APTT 29.9 Seconds (25.1-36.5) 12/23/17 10:38 Attending/Attestation - Attestation I have personally seen and examined this patient.: Yes I have fully participated in the care of the patient.: Yes I have reviewed all pertinent clinical information, including history, physical exam and plan: Yes Notes (Text): 12/28/17 15:29 Medical record note made by the resident after discussion with my direction and input after the patient was personally seen and examined by me. I have reviewed the chart and agree that the record accurately reflects by personal performance of the history, physical exam, data review, and medical decision-making, in the course for the patient. I have also personally directed the plan of care.
--- NOTE | 2017-12-26 19:39 | CP.PCM.PN ---
Subjective - Date & Time of Evaluation Date of Evaluation: 12/26/17 Time of Evaluation: 17:00 - Subjective Subjective: Infectious Disease Follow Up: December 26, 2017 52 yo male with discharge from G-tube insertion site. Patient was recently in hospital for treatment of cellulitis and pneumonia. Was on Vancomycin, Cefepime , and Doxycycline. Given Doxycycline on discharge from the hospital on last recent hospitalization. Sent to [facility] this time by radiation oncology. Erythema and induration of the G-tube site. He states pain of 7 out of 10. Continued on Zosyn and Vancomycin IV. Area showing slow improvement. G-tube replaced as patient pulled it out. Objective - Vital Signs/Intake and Output Vital Signs (last 24 hours): Temp Pulse Resp BP Pulse Ox 99.1 F 90 20 96/56 L 94 L 12/26/17 14:00 12/26/17 14:00 12/26/17 14:00 12/26/17 14:00 12/26/17 14:00 Intake and Output: 12/26/17 12/27/17 18:59 06:59 Intake Total 360 Output Total 350 Balance 10 - Medications Medications: Current Medications Albuterol/Ipratropium (Duoneb 3 Mg/0.5 Mg (3 Ml) Ud) 3 ml IH Q6 [facility] Last Admin: 12/26/17 13:34 Dose: 3 ml Ferrous Sulfate (Feosol) 324 mg PO BID [facility] Last Admin: 12/26/17 17:56 Dose: 324 mg Vancomycin HCl (Vancomycin 1gm) 1 gm in 250 mls @ 167 mls/hr IVPB Q12H [facility] PRN Reason: Protocol Last Admin: 12/26/17 10:55 Dose: 167 mls/hr Piperacillin Sod/Tazobactam Sod (Zosyn 3.375 In Ns 100ml) 100 mls @ 200 mls/hr IVPB Q6 [facility] PRN Reason: Protocol Last Admin: 12/26/17 17:42 Dose: 200 mls/hr Ketorolac Tromethamine (Toradol) 15 mg IVP Q6 PRN PRN Reason: Pain, severe (8-10) Last Admin: 12/24/17 17:11 Dose: 15 mg Mometasone Furoate [ (Asmanex]) 110 mcg IH DAILY [facility] Last Admin: 12/26/17 10:54 Dose: Not Given Oxycodone/Acetaminophen (Percocet 5/325 Mg Tab) 1 tab PO Q6H PRN PRN Reason: Pain, moderate (4-7) Stop: 12/27/17 11:23 Last Admin: 12/26/17 10:54 Dose: 1 tab Polyethylene Glycol (Miralax) 17 gm PO DAILY [facility] Last Admin: 12/26/17 10:54 Dose: 17 gm - Labs Labs: 12/26/17 06:00 12/26/17 06:00 PT 17.7 SECONDS (9.4-12.5) H 12/23/17 10:38 INR 1.53 (0.93-1.08) H 12/23/17 10:38 APTT 29.9 Seconds (25.1-36.5) 12/23/17 10:38 - Constitutional Appears: Non-toxic, No Acute Distress, Chronically Ill - Head Exam Head Exam: ATRAUMATIC, NORMOCEPHALIC - Eye Exam Eye Exam: EOMI, PERRL Pupil Exam: NORMAL ACCOMODATION, PERRL - ENT Exam ENT Exam: Mucous Membranes Moist Additional comments: Erythema on chin and neck secondary to radiation Trach in place with clear secretions - Neck Exam Neck Exam: Full ROM, Normal Inspection - Respiratory Exam Respiratory Exam: Clear to Ausculation Bilateral, NORMAL BREATHING PATTERN. absent: Rales, Rhonchi, Wheezes - Cardiovascular Exam Cardiovascular Exam: REGULAR RHYTHM, RRR, +S1, +S2 - GI/Abdominal Exam GI & Abdominal Exam: Soft, Normal Bowel Sounds. absent: Distended, Tenderness - Extremities Exam Extremities Exam: Normal Inspection. absent: Joint Swelling, Pedal Edema - Neurological Exam Neurological Exam: Alert, Awake, CN II-XII Intact, Oriented x3 - Psychiatric Exam Psychiatric exam: Normal Affect, Normal Mood - Skin Additional comments: Erythema around site of g-tube with 4cm linear ulceration inferior to g-tube. resolving erythema. G-tube replaced. Assessment and Plan - Assessment and Plan (Free Text) Assessment: 52 yo male with past medical history pharyngeal Cancer s/p tracheostomy with G-tube and COPD. Patient sent to [facility] from radiation oncology for G-tube malfunction and cellulitis around G-tube site. Started on Vancomycin and Zosyn for antibiotic coverage. Local wound care. Mild leukocytosis. Thick sputum production. Afebrile. Supportive care. Slow improvement of the cellulitis. Still with leak/drainage around the G-tube site. Can consider use of oral Keflex 500mg BID for 14 days on discharge. Patient had pulled out G-tube but new one placed now. Spoke with Dr. Ren regarding case. Thank you for allowing me to participate in the care of the patient, we will follow with you.
--- NOTE | 2017-12-26 23:18 | CP.PCM.PN ---
Subjective - Date & Time of Evaluation Date of Evaluation: 12/26/17 Time of Evaluation: 06:30 - Subjective Subjective: Surgery: Dr. Patel Pt seen and examined. G-tube began leaking again overnight. Dressing was changed. Pt stats that skin irritation is improved. Objective - Vital Signs/Intake and Output Vital Signs (last 24 hours): Temp Pulse Resp BP Pulse Ox 98 F 100 H 20 122/80 93 L 12/26/17 22:00 12/26/17 22:00 12/26/17 22:00 12/26/17 22:00 12/26/17 22:00 Intake and Output: 12/26/17 12/27/17 18:59 06:59 Intake Total 360 Output Total 350 Balance 10 - Medications Medications: Current Medications Albuterol/Ipratropium (Duoneb 3 Mg/0.5 Mg (3 Ml) Ud) 3 ml IH Q6 [facility] Last Admin: 12/26/17 19:31 Dose: 3 ml Ferrous Sulfate (Feosol) 324 mg PO BID [facility] Last Admin: 12/26/17 17:56 Dose: 324 mg Piperacillin Sod/Tazobactam Sod (Zosyn 3.375 In Ns 100ml) 100 mls @ 200 mls/hr IVPB Q6 [facility] PRN Reason: Protocol Last Admin: 12/26/17 17:42 Dose: 200 mls/hr Ketorolac Tromethamine (Toradol) 15 mg IVP Q6 PRN PRN Reason: Pain, severe (8-10) Last Admin: 12/24/17 17:11 Dose: 15 mg Mometasone Furoate [ (Asmanex]) 110 mcg IH DAILY [facility] Last Admin: 12/26/17 10:54 Dose: Not Given Oxycodone/Acetaminophen (Percocet 5/325 Mg Tab) 1 tab PO Q6H PRN PRN Reason: Pain, moderate (4-7) Stop: 12/27/17 11:23 Last Admin: 12/26/17 10:54 Dose: 1 tab Polyethylene Glycol (Miralax) 17 gm PO DAILY [facility] Last Admin: 12/26/17 10:54 Dose: 17 gm - Labs Labs: 12/26/17 06:00 12/26/17 06:00 PT 17.7 SECONDS (9.4-12.5) H 12/23/17 10:38 INR 1.53 (0.93-1.08) H 12/23/17 10:38 APTT 29.9 Seconds (25.1-36.5) 12/23/17 10:38 - Constitutional Appears: Non-toxic, No Acute Distress, Cachectic, Chronically Ill - Head Exam Head Exam: ATRAUMATIC, NORMOCEPHALIC - Eye Exam Eye Exam: EOMI - ENT Exam ENT Exam: Mucous Membranes Dry - Neck Exam Neck Exam: Full ROM - Respiratory Exam Respiratory Exam: NORMAL BREATHING PATTERN. absent: Accessory Muscle Use, Respiratory Distress - GI/Abdominal Exam Additional comments: erythema at G-tube site, tender to touch, leaking scant amounts of gastric contents - Extremities Exam Extremities Exam: absent: Calf Tenderness, Pedal Edema - Neurological Exam Neurological Exam: Alert, Awake, Oriented x3 Assessment and Plan - Assessment and Plan (Free Text) Assessment: 52M w. leaking G-tube -New ostomy wafer / dressing applied -will monitor and adjust as needed -d/w attending Zemaitis PGY3
[2017-12-27] MEDS: Piperacillin/Tazobact 3.375 gm 100 ML IVPB SCH ×2 (00:02→06:20)
[2017-12-27] MEDS: Albuterol-Ipratrop 3 mg / 0.5 (3 ml) UD IH SCH ×4 (01:04→21:10)
[2017-12-27 07:21] LABS: BASO # 0.02 K/mm3 (0.0-2.0); BASO % 0.2 % (0.0-3.0); EOS # 0.5 (0.0-0.7); EOS % 4.1 % (1.5-5.0); GRAN # 9.51 (1.4-6.5); GRAN % 83.3 % (50.0-68.0); HEMOGLOBIN 9.1 g/dL (14.0-18.0); LYMPH # 0.4 (1.2-3.4); LYMPH % 3.9 % (22.0-35.0); MEAN CELL VOLUME 87.8 fl (80.0-105.0); MEAN CORPUSCULAR HEMOGLOBIN 28.5 pg (25.0-35.0); MEAN CORPUSCULAR HGB CONC 32.5 g/dl (31.0-37.0); MEAN PLATELET VOLUME 8.5 fl (7.0-11.0); MONO % 8.5 % (1.0-6.0); PLATELET COUNT 420 10^3/uL (120.0-450.0); RBC 3.19 10^6/uL (3.5-6.1); RED CELL DISTRIBUTION WIDTH 14.4 % (11.5-14.5); WHITE BLOOD COUNT 11.4 10^3/ul (4.5-11.0)
--- NOTE | 2017-12-27 07:38 | CP.PCM.PN ---
Subjective - Date & Time of Evaluation Date of Evaluation: 12/27/17 Time of Evaluation: 07:34 - Subjective Subjective: Surgery Progress Note: Patient seen and examined at bedside. No acute events overnight. Pt denies leaking of G tube, fever, chills, nausea, vomiting. Objective - Vital Signs/Intake and Output Vital Signs (last 24 hours): Temp Pulse Resp BP Pulse Ox 99.1 F 103 H 18 100/52 L 93 L 12/26/17 22:00 12/26/17 22:00 12/26/17 22:00 12/26/17 22:00 12/26/17 22:00 Intake and Output: 12/27/17 12/27/17 06:59 18:59 Intake Total 240 Output Total 500 Balance -260 - Medications Medications: Current Medications Albuterol/Ipratropium (Duoneb 3 Mg/0.5 Mg (3 Ml) Ud) 3 ml IH Q6 [facility] Last Admin: 12/27/17 01:04 Dose: 3 ml Ferrous Sulfate (Feosol) 324 mg PO BID [facility] Last Admin: 12/26/17 17:56 Dose: 324 mg Piperacillin Sod/Tazobactam Sod (Zosyn 3.375 In Ns 100ml) 100 mls @ 200 mls/hr IVPB Q6 [facility] PRN Reason: Protocol Last Admin: 12/27/17 06:20 Dose: 200 mls/hr Ketorolac Tromethamine (Toradol) 15 mg IVP Q6 PRN PRN Reason: Pain, severe (8-10) Last Admin: 12/24/17 17:11 Dose: 15 mg Mometasone Furoate [ (Asmanex]) 110 mcg IH DAILY [facility] Last Admin: 12/26/17 10:54 Dose: Not Given Oxycodone/Acetaminophen (Percocet 5/325 Mg Tab) 1 tab PO Q6H PRN PRN Reason: Pain, moderate (4-7) Stop: 12/27/17 11:23 Last Admin: 12/26/17 10:54 Dose: 1 tab Polyethylene Glycol (Miralax) 17 gm PO DAILY [facility] Last Admin: 12/26/17 10:54 Dose: 17 gm - Labs Labs: 12/27/17 06:30 12/26/17 06:00 PT 17.7 SECONDS (9.4-12.5) H 12/23/17 10:38 INR 1.53 (0.93-1.08) H 12/23/17 10:38 APTT 29.9 Seconds (25.1-36.5) 12/23/17 10:38 - Constitutional Appears: Non-toxic, No Acute Distress - Head Exam Head Exam: ATRAUMATIC, NORMOCEPHALIC - Eye Exam Eye Exam: EOMI, PERRL. absent: Conjunctival injection, Scleral icterus Pupil Exam: PERRL. absent: Miosis, Unequal - ENT Exam ENT Exam: Mucous Membranes Moist - Neck Exam Neck Exam: Full ROM - Respiratory Exam Respiratory Exam: Clear to Ausculation Bilateral, NORMAL BREATHING PATTERN. absent: Accessory Muscle Use, Stridor Additional comments: + trach noted - Cardiovascular Exam Cardiovascular Exam: RRR, +S1, +S2. absent: Murmur - GI/Abdominal Exam GI & Abdominal Exam: Soft, Normal Bowel Sounds Additional comments: + mild erythema at G-tube site, no leakage noted Assessment and Plan - Assessment and Plan (Free Text) Assessment: 52M with leaking G-tube: -Continue ostomy wafer / dressing at the site -No further leaking noted -Pt okay to discharge home -Will discuss with attending.
[2017-12-27 07:39] LABS: ALB/GLOB RATIO 0.8 (1.1-1.8); ALBUMIN 2.5 g/dL (3.0-4.8); ALT/SGPT 26 U/L (7-56); AST/SGOT 18 U/L (17-59); BLOOD UREA NITROGEN 6 mg/dL (7-21); CALCIUM 8.8 mg/dL (8.4-10.5); GFR AFRICAN-AMERICAN > 60; GFR NON-AFRICAN AMERICAN > 60
[2017-12-27 08:15] LABS: BAND 1 % (0-2); EOSINOPHIL 6 % (0.0-3.0); LYMPHOCYTE 2 % (22.0-35.0); MONOCYTE 5 % (1.0-6.0); NEUTROPHIL 86 % (50.0-70.0)
[2017-12-27 08:16] LABS: PLATELET ESTIMATE NORMAL (NORMAL)
[2017-12-27] MEDS: MOMETASONE FUROATE IH SCH (10:36)
[2017-12-27] MEDS: POLYETHYLENE GLYCOL 3350 17 GM/Dose PACKET PO SCH (10:36)
[2017-12-27] MEDS: Oxycodone/Acetaminophen 5/325 mg Tab PO PRN (10:37)
[2017-12-27] MEDS ORDERED: Potassium Chloride 20 mEq ER Tab PO ONE (11:25)
--- NOTE | 2017-12-27 11:37 | CP.PCM.PN ---
<Elizabeth Pugh - Last Filed: 12/27/17 11:33> Subjective - Date & Time of Evaluation Date of Evaluation: 12/27/17 Time of Evaluation: 07:30 - Subjective Subjective: Gumemarcannel Lexy DO PGY1 - IM Progress Note Patient seen and examined at bedside. Per nursing staff, no acute events overnight. Pain around G tube continues to improve. Patient reports continued drainage from G tube, as well as leakage from the stoma bag. Trach secretions mildly improved. Denies other abdominal pain, chest pain, nausea, vomiting, diarrhea, constipation, fever, chills. Objective - Vital Signs/Intake and Output Vital Signs (last 24 hours): Temp Pulse Resp BP Pulse Ox 97.2 F L 76 18 106/68 92 L 12/27/17 06:00 12/27/17 06:00 12/27/17 06:00 12/27/17 06:00 12/27/17 06:00 Intake and Output: 12/27/17 12/27/17 06:59 18:59 Intake Total 240 Output Total 500 Balance -260 - Medications Medications: Current Medications Albuterol/Ipratropium (Duoneb 3 Mg/0.5 Mg (3 Ml) Ud) 3 ml IH Q6 [facility] Last Admin: 12/27/17 09:08 Dose: 3 ml Ferrous Sulfate (Feosol) 324 mg PO BID [facility] Last Admin: 12/27/17 10:37 Dose: 324 mg Piperacillin Sod/Tazobactam Sod (Zosyn 3.375 In Ns 100ml) 100 mls @ 200 mls/hr IVPB Q6 [facility] PRN Reason: Protocol Last Admin: 12/27/17 06:20 Dose: 200 mls/hr Ketorolac Tromethamine (Toradol) 15 mg IVP Q6 PRN PRN Reason: Pain, severe (8-10) Last Admin: 12/24/17 17:11 Dose: 15 mg Mometasone Furoate [ (Asmanex]) 110 mcg IH DAILY [facility] Last Admin: 12/27/17 10:36 Dose: Not Given Polyethylene Glycol (Miralax) 17 gm PO DAILY [facility] Last Admin: 12/27/17 10:36 Dose: 17 gm - Labs Labs: 12/27/17 06:30 12/27/17 06:30 PT 17.7 SECONDS (9.4-12.5) H 04/02/18 10:38 INR 1.53 (0.93-1.08) H 12/23/17 10:38 APTT 29.9 Seconds (25.1-36.5) 12/23/17 10:38 - Additional Findings Additional findings: - Constitutional Appears: Non-toxic, No Acute Distress, Chronically Ill - Head Exam Head Exam: ATRAUMATIC, NORMOCEPHALIC - Eye Exam Eye Exam: EOMI, Normal appearance - ENT Exam ENT Exam: Mucous Membranes Moist - Neck Exam Neck Exam: Normal Inspection - Respiratory Exam Respiratory Exam: Clear to Ausculation Bilateral, NORMAL BREATHING PATTERN - Cardiovascular Exam Cardiovascular Exam: RRR - GI/Abdominal Exam GI & Abdominal Exam: Soft, Tenderness (to superficial palpation; only in areas of erythema around site of G tube), Normal Bowel Sounds. absent: Distended, Firm, Guarding, Rigid, Rebound - Extremities Exam Extremities Exam: Normal Inspection. absent: Calf Tenderness, Pedal Edema - Neurological Exam Neurological Exam: Alert, Awake, Oriented x3 - Psychiatric Exam Psychiatric exam: Normal Affect, Normal Mood - Skin Skin Exam: Dry, Normal Color Additional comments: Normal, except near site of G tube; erythema improved Colostomy bag over G tube with some thin white/yellow drainage. 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 Plan: Abdominal Cellulitis - Improving - Continues to have some problems with G tube; management per surgery - Cellulitis likely caused/worsened by gastric secretions leaking around the G tube - Will start BID IV PPI to reduce acidity of secretion and promote healing - Wound cultures show klaudia albicans - Patient afebrile, no leukocytosis; VSS - Will discontinue IV antibiotics, start PO augmentin to cover cellulitis and PNA; per ID - Clotrimazole topical for superficial fungal infection - Motrin/percocet/toradol for pain - Wound care requested - Requested ID and surgery consults; appreciate recs H/o COPD - Cont home medications H/o Nicotine abuse - Nicotine patch PRN Anemia - Normocytic, normochromic; stable; no signs of active bleeding - Repeat iron studies indicate chronic disease, with likely iron deficiency component. - Continue PO iron and stool softener Tracheal secretions - Repeat CXR shows persistent RLL infiltrate - Continue augmentin as above GI/DVT PPx - Protonix - Lovenox Pt seen and discussed in detail with Dr. Ren Assessment and Plan (1) Cellulitis Status: Acute (2) Dislodged gastrostomy tube Status: Acute <Francisco J Ren - Last Filed: 12/28/17 15:38> Objective - Vital Signs/Intake and Output Vital Signs (last 24 hours): Temp Pulse Resp BP Pulse Ox 99 F 83 20 113/73 91 L 12/28/17 09:27 12/28/17 08:09 12/28/17 08:09 12/28/17 08:09 12/28/17 08:09 Intake and Output: 12/28/17 12/28/17 06:59 18:59 Intake Total 120 720 Output Total 600 Balance -480 720 - Medications Medications: Current Medications Acetaminophen (Tylenol 325mg Tab) 650 mg PO Q6H PRN PRN Reason: Fever >100.4 F Last Admin: 12/27/17 22:38 Dose: 650 mg Albuterol/Ipratropium (Duoneb 3 Mg/0.5 Mg (3 Ml) Ud) 3 ml IH Q6 [facility] Last Admin: 12/28/17 13:46 Dose: 3 ml Amoxicillin/Clavulanate Potassium (Augmentin 500 Mg-125 Mg Tab) 1 tab PO Q8 [facility] PRN Reason: Protocol Last Admin: 12/28/17 13:22 Dose: 1 tab Ferrous Sulfate (Feosol) 324 mg PO BID [facility] Last Admin: 12/28/17 09:51 Dose: 324 mg Mometasone Furoate [ (Asmanex]) 110 mcg IH DAILY [facility] Last Admin: 12/28/17 09:52 Dose: Not Given Oxycodone/Acetaminophen (Percocet 5/325 Mg Tab) 1 tab PO Q6H PRN PRN Reason: Pain, moderate (4-7) Stop: 12/30/17 17:31 Pantoprazole Sodium (Protonix Ec Tab) 40 mg PO 0600,1600 [facility] Last Admin: 12/28/17 05:53 Dose: 40 mg Polyethylene Glycol (Miralax) 17 gm PO DAILY [facility] Last Admin: 12/28/17 09:52 Dose: 17 gm - Labs Labs: 12/27/17 06:30 12/27/17 06:30 PT 17.7 SECONDS (9.4-12.5) H 12/23/17 10:38 INR 1.53 (0.93-1.08) H 12/23/17 10:38 APTT 29.9 Seconds (25.1-36.5) 12/23/17 10:38 Attending/Attestation - Attestation I have personally seen and examined this patient.: Yes I have fully participated in the care of the patient.: Yes I have reviewed all pertinent clinical information, including history, physical exam and plan: Yes Notes (Text): 12/28/17 15:34 Medical record note made by the resident after discussion with my direction and input after the patient was personally seen and examined by me. I have reviewed the chart and agree that the record accurately reflects by personal performance of the history, physical exam, data review, and medical decision-making, in the course for the patient. I have also personally directed the plan of care. Patient PEG tube is still leaking, discussed with Surgery .Surgery is planning to secure PEG tube .Patient and family is not ready for open surgery at this time..
--- NOTE | 2017-12-27 13:35 | CP.PCM.PN ---
Subjective - Date & Time of Evaluation Date of Evaluation: 12/27/17 Time of Evaluation: 12:45 - Subjective Subjective: Infectious Disease Follow Up: December 27, 2017 52 yo male with discharge from G-tube insertion site. Patient was recently in hospital for treatment of cellulitis and pneumonia. Was on Vancomycin, Cefepime , and Doxycycline. Given Doxycycline on discharge from the hospital on last recent hospitalization. Sent to [facility] this time by radiation oncology. Erythema and induration of the G-tube site. He states pain of 7 out of 10. Continued on Zosyn and Vancomycin IV. Area showing slow improvement. G-tube replaced as patient pulled it out. He continues to have problems with the G- tube. Objective - Vital Signs/Intake and Output Vital Signs (last 24 hours): Temp Pulse Resp BP Pulse Ox 97.2 F L 76 18 106/68 92 L 12/27/17 06:00 12/27/17 06:00 12/27/17 06:00 12/27/17 06:00 12/27/17 06:00 Intake and Output: 12/27/17 12/27/17 06:59 18:59 Intake Total 240 Output Total 500 Balance -260 - Medications Medications: Current Medications Albuterol/Ipratropium (Duoneb 3 Mg/0.5 Mg (3 Ml) Ud) 3 ml IH Q6 [facility] Last Admin: 12/27/17 09:08 Dose: 3 ml Amoxicillin/Clavulanate Potassium (Augmentin 500 Mg-125 Mg Tab) 1 tab PO Q8 [facility] PRN Reason: Protocol Ferrous Sulfate (Feosol) 324 mg PO BID [facility] Last Admin: 12/27/17 10:37 Dose: 324 mg Ketorolac Tromethamine (Toradol) 15 mg IVP Q6 PR[facility] PRN Reason: Pain, severe (8-10) Last Admin: 12/24/17 17:11 Dose: 15 mg Mometasone Furoate [ (Asmanex]) 110 mcg IH DAILY [facility] Last Admin: 12/27/17 10:36 Dose: Not Given Pantoprazole Sodium (Protonix Inj) 40 mg IVP Q12 [facility] Polyethylene Glycol (Miralax) 17 gm PO DAILY [facility] Last Admin: 12/27/17 10:36 Dose: 17 gm - Labs Labs: 12/27/17 06:30 12/27/17 06:30 PT 17.7 SECONDS (9.4-12.5) H 12/23/17 10:38 INR 1.53 (0.93-1.08) H 12/23/17 10:38 APTT 29.9 Seconds (25.1-36.5) 12/23/17 10:38 - Constitutional Appears: Non-toxic, No Acute Distress, Chronically Ill - Head Exam Head Exam: ATRAUMATIC, NORMOCEPHALIC - Eye Exam Eye Exam: EOMI, PERRL Pupil Exam: NORMAL ACCOMODATION, PERRL - ENT Exam ENT Exam: Mucous Membranes Moist Additional comments: Erythema on chin and neck secondary to radiation Trach in place with clear secretions - Neck Exam Neck Exam: Full ROM, Normal Inspection - Respiratory Exam Respiratory Exam: Clear to Ausculation Bilateral, NORMAL BREATHING PATTERN. absent: Rales, Rhonchi, Wheezes - Cardiovascular Exam Cardiovascular Exam: REGULAR RHYTHM, RRR, +S1, +S2 - GI/Abdominal Exam GI & Abdominal Exam: Soft, Normal Bowel Sounds. absent: Distended, Tenderness - Extremities Exam Extremities Exam: Normal Inspection. absent: Joint Swelling, Pedal Edema - Neurological Exam Neurological Exam: Alert, Awake, CN II-XII Intact, Oriented x3 - Psychiatric Exam Psychiatric exam: Normal Affect, Normal Mood - Skin Additional comments: Erythema around site of g-tube with 4cm linear ulceration inferior to g-tube. resolving erythema. G-tube replaced. Still with drainage around G-tube. Assessment and Plan - Assessment and Plan (Free Text) Assessment: 52 yo male with past medical history pharyngeal Cancer s/p tracheostomy with G-tube and COPD. Patient sent to [facility] from radiation oncology for G-tube malfunction and cellulitis around G-tube site. Started on Vancomycin and Zosyn for antibiotic coverage. Local wound care. Mild leukocytosis. Thick sputum production. Afebrile. Supportive care. Slow improvement of the cellulitis. Still with leak/drainage around the G-tube site. Can consider use of oral Keflex 500mg BID for 14 days on discharge. Patient had pulled out G-tube but new one placed now. Can switch to PO coverage at this point... may also consider use of Augmentin over Keflex. Spoke with Dr. Ren regarding case. Thank you for allowing me to participate in the care of the patient, we will follow with you.
[2017-12-27] MEDS ORDERED: Lidocaine 1%/Epinephrine 1:100000 30 ml vial IJ ONE (15:38)
[2017-12-27] MEDS: Amoxicillin-Clav 500-125 mg Tab PO SCH ×2 (16:15→22:00)
--- NOTE | 2017-12-27 16:50 | CP.PCM.PCO ---
Physician Communication Note - Physician Communication Note Physician Communication Note: PEG Leakage-pt refuses OR/Trial PEG Circlage- stomahesive/PPI BID
[2017-12-28] MEDS: Albuterol-Ipratrop 3 mg / 0.5 (3 ml) UD IH SCH ×4 (03:30→20:30)
[2017-12-28] MEDS: Pantoprazole 40 mg EC Tab PO SCH ×2 (05:53→17:23)
[2017-12-28] MEDS: Amoxicillin-Clav 500-125 mg Tab PO SCH ×3 (05:53→21:02)
[2017-12-28] MEDS ORDERED: Bupivacaine 0.5% Inj(30mL) IJ ONE (09:18)
[2017-12-28] MEDS ORDERED: Potassium Chloride 20 mEq ER Tab PO ONE (09:21)
--- NOTE | 2017-12-28 09:22 | CP.PCM.PN ---
Subjective - Date & Time of Evaluation Date of Evaluation: 12/28/17 Time of Evaluation: 09:19 - Subjective Subjective: Surgery: Dr. Patel, Dr. Butcher Patient denies any leakage from around ostomy appliance. He states his skin is feeling better. He is tolerating regular diet. Objective - Vital Signs/Intake and Output Vital Signs (last 24 hours): Temp Pulse Resp BP Pulse Ox 88 F L 83 20 113/73 91 L 12/28/17 08:09 12/28/17 08:09 12/28/17 08:09 12/28/17 08:09 12/28/17 08:09 Intake and Output: 12/28/17 12/28/17 06:59 18:59 Intake Total 120 Output Total 600 Balance -480 - Medications Medications: Current Medications Acetaminophen (Tylenol 325mg Tab) 650 mg PO Q6H PRN PRN Reason: Fever >100.4 F Last Admin: 12/27/17 22:38 Dose: 650 mg Albuterol/Ipratropium (Duoneb 3 Mg/0.5 Mg (3 Ml) Ud) 3 ml IH Q6 [facility] Last Admin: 12/28/17 07:08 Dose: 3 ml Amoxicillin/Clavulanate Potassium (Augmentin 500 Mg-125 Mg Tab) 1 tab PO Q8 [facility] PRN Reason: Protocol Last Admin: 12/28/17 05:53 Dose: 1 tab Ferrous Sulfate (Feosol) 324 mg PO BID [facility] Last Admin: 12/27/17 17:57 Dose: 324 mg Mometasone Furoate [ (Asmanex]) 110 mcg IH DAILY [facility] Last Admin: 12/27/17 10:36 Dose: Not Given Oxycodone/Acetaminophen (Percocet 5/325 Mg Tab) 1 tab PO Q6H PRN PRN Reason: Pain, moderate (4-7) Stop: 12/30/17 17:31 Pantoprazole Sodium (Protonix Ec Tab) 40 mg PO 0600,1600 [facility] Last Admin: 12/28/17 05:53 Dose: 40 mg Polyethylene Glycol (Miralax) 17 gm PO DAILY [facility] Last Admin: 12/27/17 10:36 Dose: 17 gm - Labs Labs: 12/27/17 06:30 12/27/17 06:30 PT 17.7 SECONDS (9.4-12.5) H 12/23/17 10:38 INR 1.53 (0.93-1.08) H 12/23/17 10:38 APTT 29.9 Seconds (25.1-36.5) 12/23/17 10:38 - Constitutional Appears: Non-toxic, Cachectic, Chronically Ill - Head Exam Head Exam: ATRAUMATIC, NORMOCEPHALIC - Eye Exam Eye Exam: EOMI, Normal appearance - ENT Exam ENT Exam: Mucous Membranes Moist - Respiratory Exam Respiratory Exam: NORMAL BREATHING PATTERN. absent: Respiratory Distress - Cardiovascular Exam Cardiovascular Exam: REGULAR RHYTHM. absent: Tachycardia - GI/Abdominal Exam GI & Abdominal Exam: Soft. absent: Distended, Tenderness Additional comments: Gtube in RMQ with ostomy appliance, gastric contents in bag. skin erythematous but dry around appliance Assessment and Plan - Assessment and Plan (Free Text) Assessment: 52 y/o male w/ Gtube leakage Plan: -will cerclage G tube today at skin -marcaine ordered -cont ostomy appliance to Gtube site to protect skin -appreciate wound care recs -if leak remains contained with ostomy appliance, cleared for d/c -further recs per attending AKWhite PGY3
[2017-12-28] MEDS: POLYETHYLENE GLYCOL 3350 17 GM/Dose PACKET PO SCH (09:52)
[2017-12-28] MEDS: MOMETASONE FUROATE IH SCH (09:52)
[2017-12-28] MEDS ORDERED: Morphine 4 mg/ml ISec SC STA (10:40)
--- NOTE | 2017-12-28 11:58 | PCM.PROC ---
Procedures Attestation:: I certify that I have explained the specified Operation(s) or Procedure(s), risks, benefits and reasonable alternatives to the Patient and/or other person responsible. The opportunity was given to ask questions and all questions answered - Feeding Tube Replacement Type of Tube: gastrostomy Insertion Site Prior to Procedure: erythematous Tube Used for Reinsertion: Amanda Syriac Tube Size (F): 20 Balloon Size (mis): 30 Tube Secured by: suturing Patient Tolerated Procedure: well, no complications Additional comments: Gtube in place prior to procedure. Procedure: Cerclage of Gtube Indication: Gtube leaking from insertion site. Procedure: Area around tube insertion site erythematous. Area was prepped and draped in usual sterile fashion. 20cc of Marcaine injected to surrounding tissues. After appropriate anesthesia, 0 prolene suture was used in a purse-string fashion to cerclage the g-tube. Good seal around Gtube obtained. Stomahesive placed around insertion site and desitin cream placed on erythematous surrounding skin. Patient tolerated procedure well. Complications: none Dr. Butcher present during procedure AKWhite PGY3
--- NOTE | 2017-12-28 17:15 | CP.PCM.PN ---
<MegaPako - Last Filed: 12/28/17 19:16> Subjective - Date & Time of Evaluation Date of Evaluation: 12/28/17 Time of Evaluation: 09:20 - Subjective Subjective: Patient denies any leakage from around ostomy appliance. He states his skin is feeling better. He is tolerating regular diet. Nurse and chart review indicate that patient had elevated temperature in the AM. Objective - Vital Signs/Intake and Output Vital Signs (last 24 hours): Temp Pulse Resp BP Pulse Ox 98.7 F 96 H 20 118/76 98 12/28/17 15:53 12/28/17 15:53 12/28/17 15:53 12/28/17 15:53 12/28/17 15:53 Intake and Output: 12/28/17 12/28/17 06:59 18:59 Intake Total 120 720 Output Total 600 Balance -480 720 - Medications Medications: Current Medications Acetaminophen (Tylenol 325mg Tab) 650 mg PO Q6H PRN PRN Reason: Fever >100.4 F Last Admin: 12/27/17 22:38 Dose: 650 mg Albuterol/Ipratropium (Duoneb 3 Mg/0.5 Mg (3 Ml) Ud) 3 ml IH Q6 [facility] Last Admin: 12/28/17 13:46 Dose: 3 ml Amoxicillin/Clavulanate Potassium (Augmentin 500 Mg-125 Mg Tab) 1 tab PO Q8 [facility] PRN Reason: Protocol Last Admin: 12/28/17 13:22 Dose: 1 tab Ferrous Sulfate (Feosol) 324 mg PO BID [facility] Last Admin: 12/28/17 09:51 Dose: 324 mg Mometasone Furoate [ (Asmanex]) 110 mcg IH DAILY [facility] Last Admin: 12/28/17 09:52 Dose: Not Given Oxycodone/Acetaminophen (Percocet 5/325 Mg Tab) 1 tab PO Q6H PRN PRN Reason: Pain, moderate (4-7) Stop: 12/30/17 17:31 Pantoprazole Sodium (Protonix Ec Tab) 40 mg PO 0600,1600 [facility] Last Admin: 12/28/17 05:53 Dose: 40 mg Polyethylene Glycol (Miralax) 17 gm PO DAILY [facility] Last Admin: 12/28/17 09:52 Dose: 17 gm - Labs Labs: 12/27/17 06:30 12/27/17 06:30 PT 17.7 SECONDS (9.4-12.5) H 12/23/17 10:38 INR 1.53 (0.93-1.08) H 12/23/17 10:38 APTT 29.9 Seconds (25.1-36.5) 12/23/17 10:38 - Constitutional Appears: Well, Non-toxic - Head Exam Head Exam: ATRAUMATIC, NORMOCEPHALIC - Eye Exam Eye Exam: EOMI, Normal appearance - ENT Exam ENT Exam: Mucous Membranes Moist - Neck Exam Neck Exam: Normal Inspection - Respiratory Exam Respiratory Exam: Clear to Ausculation Bilateral, NORMAL BREATHING PATTERN. absent: Accessory Muscle Use - Cardiovascular Exam Cardiovascular Exam: RRR, +S1, +S2 - GI/Abdominal Exam GI & Abdominal Exam: absent: Guarding, Tenderness, Rebound Additional comments: g-tube noted - Extremities Exam Extremities Exam: Normal Inspection - Back Exam Back Exam: NORMAL INSPECTION. 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 Plan: Abdominal Cellulitis - Patient underwent cerclage of G-tube today - Improving - Continues to have some problems with G tube; management per surgery - Cellulitis likely caused/worsened by gastric secretions leaking around the G tube - Will start BID IV PPI to reduce acidity of secretion and promote healing - Wound cultures show klaudia albicans - Patient afebrile, no leukocytosis; VSS - Will discontinue IV antibiotics, start PO augmentin to cover cellulitis and PNA; per ID - Clotrimazole topical for superficial fungal infection - Motrin/percocet/toradol for pain - Wound care requested - Requested ID and surgery consults; appreciate recs H/o COPD - Cont home medications H/o Nicotine abuse - Nicotine patch PRN Anemia - Normocytic, normochromic; stable; no signs of active bleeding - Repeat iron studies indicate chronic disease, with likely iron deficiency component. - Continue PO iron and stool softener Tracheal secretions - Repeat CXR shows persistent RLL infiltrate - Continue augmentin as above GI/DVT PPx - Protonix - Lovenox Pt seen and discussed in detail with Dr. Ren <Francisco J Ren - Last Filed: 12/29/17 13:42> Objective - Vital Signs/Intake and Output Vital Signs (last 24 hours): Temp Pulse Resp BP Pulse Ox 97.6 F 82 18 98/54 L 93 L 12/29/17 06:00 12/29/17 06:00 12/29/17 06:00 12/29/17 06:00 12/29/17 06:00 Intake and Output: 12/29/17 12/29/17 06:59 18:59 Intake Total 820 Output Total 300 Balance 520 - Medications Medications: Current Medications Acetaminophen (Tylenol 325mg Tab) 650 mg PO Q6H PRN PRN Reason: Fever >100.4 F Last Admin: 12/27/17 22:38 Dose: 650 mg Albuterol/Ipratropium (Duoneb 3 Mg/0.5 Mg (3 Ml) Ud) 3 ml IH Q6 [facility] Last Admin: 12/29/17 13:20 Dose: 3 ml Amoxicillin/Clavulanate Potassium (Augmentin 500 Mg-125 Mg Tab) 1 tab PO Q8 [facility] PRN Reason: Protocol Last Admin: 12/29/17 05:53 Dose: 1 tab Ferrous Sulfate (Feosol) 324 mg PO BID [facility] Last Admin: 12/29/17 09:50 Dose: 324 mg Mometasone Furoate [ (Asmanex]) 110 mcg IH DAILY [facility] Last Admin: 12/29/17 09:51 Dose: Not Given Oxycodone/Acetaminophen (Percocet 5/325 Mg Tab) 1 tab PO Q6H PRN PRN Reason: Pain, moderate (4-7) Stop: 12/30/17 17:31 Last Admin: 12/29/17 07:13 Dose: 1 tab Pantoprazole Sodium (Protonix Ec Tab) 40 mg PO 0600,1600 [facility] Last Admin: 12/29/17 05:53 Dose: 40 mg Polyethylene Glycol (Miralax) 17 gm PO DAILY [facility] Last Admin: 12/29/17 09:50 Dose: 17 gm - Labs Labs: 12/27/17 06:30 12/27/17 06:30 PT 17.7 SECONDS (9.4-12.5) H 12/23/17 10:38 INR 1.53 (0.93-1.08) H 12/23/17 10:38 APTT 29.9 Seconds (25.1-36.5) 12/23/17 10:38 Attending/Attestation - Attestation I have personally seen and examined this patient.: Yes I have fully participated in the care of the patient.: Yes I have reviewed all pertinent clinical information, including history, physical exam and plan: Yes Notes (Text): 12/29/17 13:42 Medical record note made by the resident after discussion with my direction and input after the patient was personally seen and examined by me. I have reviewed the chart and agree that the record accurately reflects by personal performance of the history, physical exam, data review, and medical decision-making, in the course for the patient. I have also personally directed the plan of care.
--- NOTE | 2017-12-28 19:07 | CP.PCM.PN ---
Subjective - Date & Time of Evaluation Date of Evaluation: 12/28/17 Time of Evaluation: 17:45 - Subjective Subjective: Infectious Disease Follow Up: December 28, 2017 52 yo male with discharge from G-tube insertion site. Patient was recently in hospital for treatment of cellulitis and pneumonia. Was on Vancomycin, Cefepime , and Doxycycline. Given Doxycycline on discharge from the hospital on last recent hospitalization. Sent to [facility] this time by radiation oncology. Erythema and induration of the G-tube site. He states pain of 7 out of 10. Continued on Zosyn and Vancomycin IV. Area showing slow improvement. G-tube replaced as patient pulled it out. He continues to have problems with the G- tube. Patient refused to go to surgery to correct the G-tube issue. G-tube site cellulitis improved. Objective - Vital Signs/Intake and Output Vital Signs (last 24 hours): Temp Pulse Resp BP Pulse Ox 98.7 F 96 H 20 118/76 98 12/28/17 15:53 12/28/17 15:53 12/28/17 15:53 12/28/17 15:53 12/28/17 15:53 Intake and Output: 12/28/17 12/28/17 06:59 18:59 Intake Total 120 720 Output Total 600 Balance -480 720 - Medications Medications: Current Medications Acetaminophen (Tylenol 325mg Tab) 650 mg PO Q6H PRN PRN Reason: Fever >100.4 F Last Admin: 12/27/17 22:38 Dose: 650 mg Albuterol/Ipratropium (Duoneb 3 Mg/0.5 Mg (3 Ml) Ud) 3 ml IH Q6 [facility] Last Admin: 12/28/17 13:46 Dose: 3 ml Amoxicillin/Clavulanate Potassium (Augmentin 500 Mg-125 Mg Tab) 1 tab PO Q8 [facility] PRN Reason: Protocol Last Admin: 12/28/17 13:22 Dose: 1 tab Ferrous Sulfate (Feosol) 324 mg PO BID [facility] Last Admin: 12/28/17 17:23 Dose: 324 mg Mometasone Furoate [ (Asmanex]) 110 mcg IH DAILY [facility] Last Admin: 12/28/17 09:52 Dose: Not Given Oxycodone/Acetaminophen (Percocet 5/325 Mg Tab) 1 tab PO Q6H PRN PRN Reason: Pain, moderate (4-7) Stop: 12/30/17 17:31 Pantoprazole Sodium (Protonix Ec Tab) 40 mg PO 0600,1600 [facility] Last Admin: 12/28/17 17:23 Dose: 40 mg Polyethylene Glycol (Miralax) 17 gm PO DAILY [facility] Last Admin: 12/28/17 09:52 Dose: 17 gm - Labs Labs: 12/27/17 06:30 12/27/17 06:30 PT 17.7 SECONDS (9.4-12.5) H 12/23/17 10:38 INR 1.53 (0.93-1.08) H 12/23/17 10:38 APTT 29.9 Seconds (25.1-36.5) 12/23/17 10:38 - Constitutional Appears: Non-toxic, No Acute Distress, Chronically Ill - Head Exam Head Exam: ATRAUMATIC, NORMOCEPHALIC - Eye Exam Eye Exam: EOMI, PERRL Pupil Exam: NORMAL ACCOMODATION, PERRL - ENT Exam ENT Exam: Mucous Membranes Moist Additional comments: Erythema on chin and neck secondary to radiation Trach in place with clear secretions. Some discharge of food especially liquids when he eats. - Neck Exam Neck Exam: Full ROM, Normal Inspection - Respiratory Exam Respiratory Exam: Clear to Ausculation Bilateral, NORMAL BREATHING PATTERN. absent: Rales, Rhonchi, Wheezes - Cardiovascular Exam Cardiovascular Exam: REGULAR RHYTHM, RRR, +S1, +S2 - GI/Abdominal Exam GI & Abdominal Exam: Soft, Normal Bowel Sounds. absent: Distended, Tenderness - Extremities Exam Extremities Exam: Normal Inspection. absent: Joint Swelling, Pedal Edema - Neurological Exam Neurological Exam: Alert, Awake, CN II-XII Intact, Oriented x3 - Psychiatric Exam Psychiatric exam: Normal Affect, Normal Mood - Skin Additional comments: Erythema around site of g-tube with 4cm linear ulceration inferior to g-tube initially has now resolved. G-tube replaced. Still with drainage around G- tube. Assessment and Plan - Assessment and Plan (Free Text) Assessment: 52 yo male with past medical history pharyngeal Cancer s/p tracheostomy with G-tube and COPD. Patient sent to [facility] from radiation oncology for G-tube malfunction and cellulitis around G-tube site. Started on Vancomycin and Zosyn for antibiotic coverage. Local wound care. Mild leukocytosis. Thick sputum production. Afebrile. Supportive care. Improvement and resolvement of the cellulitis. Still with leak/drainage around the G-tube site. Can consider use of oral Keflex 500mg BID for 14 days on discharge. Patient had pulled out G-tube but new one placed now. Can switch to PO coverage at this point... may also consider use of Augmentin over Keflex. Spoke with Dr. Ren regarding case. Thank you for allowing me to participate in the care of the patient, we will follow with you.
[2017-12-29] MEDS: Albuterol-Ipratrop 3 mg / 0.5 (3 ml) UD IH SCH ×4 (01:21→19:32)
[2017-12-29] MEDS: Amoxicillin-Clav 500-125 mg Tab PO SCH ×3 (05:53→21:43)
[2017-12-29] MEDS: Pantoprazole 40 mg EC Tab PO SCH ×2 (05:53→17:35)
[2017-12-29] MEDS: Oxycodone/Acetaminophen 5/325 mg Tab PO PRN (07:13)
--- NOTE | 2017-12-29 08:10 | CP.PCM.PN ---
Subjective - Date & Time of Evaluation Date of Evaluation: 12/29/17 Time of Evaluation: 08:08 - Subjective Subjective: General Surgery: Dr Patel PT [facility]. Had purse string placed at G-tube site yesterday. Leaking nearly resolved. Only minimal when coughing. Objective - Vital Signs/Intake and Output Vital Signs (last 24 hours): Temp Pulse Resp BP Pulse Ox 98.7 F 100 H 20 101/58 L 90 L 12/28/17 21:42 12/28/17 21:42 12/28/17 21:42 12/28/17 21:42 12/28/17 21:42 Intake and Output: 12/29/17 12/29/17 06:59 18:59 Intake Total 820 Output Total 300 Balance 520 - Medications Medications: Current Medications Acetaminophen (Tylenol 325mg Tab) 650 mg PO Q6H PRN PRN Reason: Fever >100.4 F Last Admin: 12/27/17 22:38 Dose: 650 mg Albuterol/Ipratropium (Duoneb 3 Mg/0.5 Mg (3 Ml) Ud) 3 ml IH Q6 [facility] Last Admin: 12/29/17 07:04 Dose: 3 ml Amoxicillin/Clavulanate Potassium (Augmentin 500 Mg-125 Mg Tab) 1 tab PO Q8 [facility] PRN Reason: Protocol Last Admin: 12/29/17 05:53 Dose: 1 tab Ferrous Sulfate (Feosol) 324 mg PO BID [facility] Last Admin: 12/28/17 17:23 Dose: 324 mg Mometasone Furoate [ (Asmanex]) 110 mcg IH DAILY [facility] Last Admin: 12/28/17 09:52 Dose: Not Given Oxycodone/Acetaminophen (Percocet 5/325 Mg Tab) 1 tab PO Q6H PRN PRN Reason: Pain, moderate (4-7) Stop: 12/30/17 17:31 Last Admin: 12/29/17 07:13 Dose: 1 tab Pantoprazole Sodium (Protonix Ec Tab) 40 mg PO 0600,1600 [facility] Last Admin: 12/29/17 05:53 Dose: 40 mg Polyethylene Glycol (Miralax) 17 gm PO DAILY [facility] Last Admin: 12/28/17 09:52 Dose: 17 gm - Labs Labs: 12/27/17 06:30 12/27/17 06:30 PT 17.7 SECONDS (9.4-12.5) H 12/23/17 10:38 INR 1.53 (0.93-1.08) H 12/23/17 10:38 APTT 29.9 Seconds (25.1-36.5) 12/23/17 10:38 - Constitutional Appears: Non-toxic, No Acute Distress - Respiratory Exam Respiratory Exam: absent: Respiratory Distress - Cardiovascular Exam Cardiovascular Exam: REGULAR RHYTHM. absent: Tachycardia - GI/Abdominal Exam GI & Abdominal Exam: Soft, Tenderness. absent: Distended Additional comments: excoriation improved minimal leak - Extremities Exam Extremities Exam: absent: Pedal Edema - Neurological Exam Neurological Exam: Alert, Awake, Oriented x3 - Psychiatric Exam Psychiatric exam: Normal Affect, Normal Mood - Skin Skin Exam: Normal Color, Warm Assessment and Plan - Assessment and Plan (Free Text) Assessment: 52M with G-tube leak: resolved Plan: leak improved continue to apply ostomy paste as needed pt is clear for discharge from surgical standpoint d/w Dr Jorge Bell, PGY3
[2017-12-29] MEDS: POLYETHYLENE GLYCOL 3350 17 GM/Dose PACKET PO SCH (09:50)
[2017-12-29] MEDS: MOMETASONE FUROATE IH SCH (09:51)
[2017-12-29 15:46] VITALS: RESP 20; O2SAT 96
--- NOTE | 2017-12-29 17:02 | CP.PCM.PN ---
Subjective - Date & Time of Evaluation Date of Evaluation: 12/29/17 Time of Evaluation: 09:45 - Subjective Subjective: Patient seen and examined at bedside. Patient appears comfortable. asks for prescriptions. Later on patient coughed and pulled G-tube leaked. Patient was afebrile overnight. Objective - Vital Signs/Intake and Output Vital Signs (last 24 hours): Temp Pulse Resp BP Pulse Ox 98.6 F 69 20 114/71 96 12/29/17 14:00 12/29/17 14:00 12/29/17 14:00 12/29/17 14:00 12/29/17 14:00 Intake and Output: 12/29/17 12/29/17 06:59 18:59 Intake Total 820 Output Total 300 Balance 520 - Medications Medications: Current Medications Acetaminophen (Tylenol 325mg Tab) 650 mg PO Q6H PRN PRN Reason: Fever >100.4 F Last Admin: 12/27/17 22:38 Dose: 650 mg Albuterol/Ipratropium (Duoneb 3 Mg/0.5 Mg (3 Ml) Ud) 3 ml IH Q6 [facility] Last Admin: 12/29/17 13:20 Dose: 3 ml Amoxicillin/Clavulanate Potassium (Augmentin 500 Mg-125 Mg Tab) 1 tab PO Q8 [facility] PRN Reason: Protocol Last Admin: 12/29/17 05:53 Dose: 1 tab Ferrous Sulfate (Feosol) 324 mg PO BID [facility] Last Admin: 12/29/17 09:50 Dose: 324 mg Mometasone Furoate [ (Asmanex]) 110 mcg IH DAILY [facility] Last Admin: 12/29/17 09:51 Dose: Not Given Oxycodone/Acetaminophen (Percocet 5/325 Mg Tab) 1 tab PO Q6H PRN PRN Reason: Pain, moderate (4-7) Stop: 12/30/17 17:31 Last Admin: 12/29/17 07:13 Dose: 1 tab Pantoprazole Sodium (Protonix Ec Tab) 40 mg PO 0600,1600 [facility] Last Admin: 12/29/17 05:53 Dose: 40 mg Polyethylene Glycol (Miralax) 17 gm PO DAILY [facility] Last Admin: 12/29/17 09:50 Dose: 17 gm - Labs Labs: 12/27/17 06:30 04/06/18 06:30 PT 17.7 SECONDS (9.4-12.5) H 12/23/17 10:38 INR 1.53 (0.93-1.08) H 12/23/17 10:38 APTT 29.9 Seconds (25.1-36.5) 12/23/17 10:38 - Constitutional Appears: Non-toxic, No Acute Distress, Older Than Stated Age - Head Exam Head Exam: ATRAUMATIC, NORMOCEPHALIC - Eye Exam Eye Exam: EOMI, Normal appearance - ENT Exam ENT Exam: Mucous Membranes Moist Additional comments: tracheostomy intact - Respiratory Exam Respiratory Exam: Clear to Ausculation Bilateral, NORMAL BREATHING PATTERN. absent: Accessory Muscle Use - Cardiovascular Exam Cardiovascular Exam: RRR, +S1, +S2 - GI/Abdominal Exam Additional comments: g-tube intact, no leakage noted - Extremities Exam Extremities Exam: Normal Inspection. 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 Plan: Abdominal Cellulitis - Patient underwent cerclage of G-tube yesterday - Continues to have some problems with G tube; management per surgery - Cellulitis likely caused/worsened by gastric secretions leaking around the G tube - Will start BID IV PPI to reduce acidity of secretion and promote healing - Wound cultures show klaudia albicans - Patient afebrile, no leukocytosis; VSS - Will discontinue IV antibiotics, start PO augmentin to cover cellulitis and PNA; per ID - Clotrimazole topical for superficial fungal infection - Motrin/percocet/toradol for pain - Wound care requested - Requested ID and surgery consults; appreciate recs H/o COPD - Cont home medications H/o Nicotine abuse - Nicotine patch PRN Anemia - Normocytic, normochromic; stable; no signs of active bleeding - Repeat iron studies indicate chronic disease, with likely iron deficiency component. - Continue PO iron and stool softener Tracheal secretions - Repeat CXR shows persistent RLL infiltrate - Continue augmentin, 3 days left GI/DVT PPx - Protonix - Lovenox Pt seen and discussed in detail with Dr. Ren
--- NOTE | 2017-12-29 18:16 | CP.PCM.PN ---
Subjective - Date & Time of Evaluation Date of Evaluation: 12/29/17 Time of Evaluation: 17:00 - Subjective Subjective: Infectious Disease Follow Up: December 29, 2017 52 yo male with discharge from G-tube insertion site. Patient was recently in hospital for treatment of cellulitis and pneumonia. Was on Vancomycin, Cefepime , and Doxycycline. Given Doxycycline on discharge from the hospital on last recent hospitalization. Sent to [facility] [place] this time by radiation oncology. Erythema and induration of the G-tube site. He states pain of 7 out of 10. Continued on Zosyn and Vancomycin IV. Area showing slow improvement. G-tube replaced as patient pulled it out. He continues to have problems with the G- tube. Patient refused to go to surgery to correct the G-tube issue. G-tube site cellulitis improved. A cerclage was placed around the G-tube insertion site that helped but the patient manipulated the area by pulling on the G-tube and it started to leak again. Objective - Vital Signs/Intake and Output Vital Signs (last 24 hours): Temp Pulse Resp BP Pulse Ox 98.6 F 69 20 114/71 96 12/29/17 14:00 12/29/17 14:00 12/29/17 14:00 12/29/17 14:00 12/29/17 14:00 Intake and Output: 12/29/17 12/29/17 06:59 18:59 Intake Total 820 Output Total 300 Balance 520 - Medications Medications: Current Medications Acetaminophen (Tylenol 325mg Tab) 650 mg PO Q6H PRN PRN Reason: Fever >100.4 F Last Admin: 12/27/17 22:38 Dose: 650 mg Albuterol/Ipratropium (Duoneb 3 Mg/0.5 Mg (3 Ml) Ud) 3 ml IH Q6 [facility] Last Admin: 12/29/17 13:20 Dose: 3 ml Amoxicillin/Clavulanate Potassium (Augmentin 500 Mg-125 Mg Tab) 1 tab PO Q8 [facility] PRN Reason: Protocol Last Admin: 12/29/17 14:00 Dose: 1 tab Ferrous Sulfate (Feosol) 324 mg PO BID [facility] Last Admin: 12/29/17 17:35 Dose: 324 mg Mometasone Furoate [ (Asmanex]) 110 mcg IH DAILY [facility] Last Admin: 12/29/17 09:51 Dose: Not Given Oxycodone/Acetaminophen (Percocet 5/325 Mg Tab) 1 tab PO Q6H PRN PRN Reason: Pain, moderate (4-7) Stop: 12/30/17 17:31 Last Admin: 12/29/17 07:13 Dose: 1 tab Pantoprazole Sodium (Protonix Ec Tab) 40 mg PO 0600,1600 [facility] Last Admin: 12/29/17 17:35 Dose: 40 mg Polyethylene Glycol (Miralax) 17 gm PO DAILY [facility] Last Admin: 12/29/17 09:50 Dose: 17 gm - Labs Labs: 12/27/17 06:30 12/27/17 06:30 PT 17.7 SECONDS (9.4-12.5) H 12/23/17 10:38 INR 1.53 (0.93-1.08) H 12/23/17 10:38 APTT 29.9 Seconds (25.1-36.5) 12/23/17 10:38 - Constitutional Appears: Non-toxic, No Acute Distress, Chronically Ill - Head Exam Head Exam: ATRAUMATIC, NORMOCEPHALIC - Eye Exam Eye Exam: EOMI, PERRL Pupil Exam: NORMAL ACCOMODATION, PERRL - ENT Exam ENT Exam: Mucous Membranes Moist Additional comments: Erythema on chin and neck secondary to radiation Trach in place with clear secretions. Some discharge of food especially liquids when he eats. - Neck Exam Neck Exam: Full ROM, Normal Inspection - Respiratory Exam Respiratory Exam: Clear to Ausculation Bilateral, NORMAL BREATHING PATTERN. absent: Rales, Rhonchi, Wheezes - Cardiovascular Exam Cardiovascular Exam: REGULAR RHYTHM, RRR, +S1, +S2 - GI/Abdominal Exam GI & Abdominal Exam: Soft, Normal Bowel Sounds. absent: Distended, Tenderness - Extremities Exam Extremities Exam: Normal Inspection. absent: Joint Swelling, Pedal Edema - Neurological Exam Neurological Exam: Alert, Awake, CN II-XII Intact, Oriented x3 - Psychiatric Exam Psychiatric exam: Normal Affect, Normal Mood - Skin Skin Exam: Intact, Normal Color Assessment and Plan - Assessment and Plan (Free Text) Assessment: 52 yo male with past medical history pharyngeal Cancer s/p tracheostomy with G-tube and COPD. Patient sent to [facility] [place] from radiation oncology for G-tube malfunction and cellulitis around G-tube site. Started on Vancomycin and Zosyn for antibiotic coverage. Local wound care. Mild leukocytosis. Thick sputum production. Afebrile. Supportive care. Improvement and resolvement of the cellulitis. Still with leak/drainage around the G-tube site. Can consider use of oral Keflex 500mg BID for 14 days on discharge. Patient had pulled out G-tube but new one placed now. Can switch to PO coverage at this point... may also consider use of Augmentin over Keflex. Patient continue to manipulate G-tube leading to continued leakage from G-tube site. Spoke with Dr. Ren regarding case. Thank you for allowing me to participate in the care of the patient, we will follow with you.
[2017-12-30] MEDS: Albuterol-Ipratrop 3 mg / 0.5 (3 ml) UD IH SCH ×3 (01:42→13:35)
[2017-12-30] MEDS: Amoxicillin-Clav 500-125 mg Tab PO SCH (05:48)
[2017-12-30] MEDS: Pantoprazole 40 mg EC Tab PO SCH (05:48)
[2017-12-30] MEDS: Oxycodone/Acetaminophen 5/325 mg Tab PO PRN (06:35)
[2017-12-30 07:34] LABS: HEMOGLOBIN 10.7 g/dL (14.0-18.0); MEAN CELL VOLUME 87.5 fl (80.0-105.0); MEAN CORPUSCULAR HEMOGLOBIN 28.5 pg (25.0-35.0); MEAN CORPUSCULAR HGB CONC 32.6 g/dl (31.0-37.0); MEAN PLATELET VOLUME 8.4 fl (7.0-11.0); RBC 3.75 10^6/uL (3.5-6.1); RED CELL DISTRIBUTION WIDTH 14.2 % (11.5-14.5); WHITE BLOOD COUNT 16.8 10^3/ul (4.5-11.0)
[2017-12-30 07:48] LABS: BLOOD UREA NITROGEN 10 mg/dL (7-21); CALCIUM 10.1 mg/dL (8.4-10.5); GFR AFRICAN-AMERICAN > 60; GFR NON-AFRICAN AMERICAN > 60
[2017-12-30 07:57] VITALS: TEMP 99
--- NOTE | 2017-12-30 08:31 | CP.PCM.PN ---
Subjective - Date & Time of Evaluation Date of Evaluation: 12/30/17 Time of Evaluation: 08:27 - Subjective Subjective: Surgery: Dr. Patel Pt seen and examined. Resting comfortably in bed. Ostomy bag was exchanges yesterday. So far no further leakage. Pt has no other complaints. Objective - Vital Signs/Intake and Output Vital Signs (last 24 hours): Temp Pulse Resp BP Pulse Ox 99 F 110 H 20 89/55 L 96 12/30/17 07:56 12/30/17 07:56 12/30/17 07:56 12/30/17 07:56 12/30/17 07:56 Intake and Output: 12/30/17 12/30/17 06:59 18:59 Intake Total 780 Balance 780 - Medications Medications: Current Medications Acetaminophen (Tylenol 325mg Tab) 650 mg PO Q6H PRN PRN Reason: Fever >100.4 F Last Admin: 12/27/17 22:38 Dose: 650 mg Albuterol/Ipratropium (Duoneb 3 Mg/0.5 Mg (3 Ml) Ud) 3 ml IH Q6 [facility] Last Admin: 12/30/17 07:15 Dose: 3 ml Amoxicillin/Clavulanate Potassium (Augmentin 500 Mg-125 Mg Tab) 1 tab PO Q8 [facility] PRN Reason: Protocol Last Admin: 12/30/17 05:48 Dose: 1 tab Ferrous Sulfate (Feosol) 324 mg PO BID [facility] Last Admin: 12/29/17 17:35 Dose: 324 mg Mometasone Furoate [ (Asmanex]) 110 mcg IH DAILY [facility] Last Admin: 12/29/17 09:51 Dose: Not Given Oxycodone/Acetaminophen (Percocet 5/325 Mg Tab) 1 tab PO Q6H PRN PRN Reason: Pain, moderate (4-7) Stop: 12/30/17 17:31 Last Admin: 12/30/17 06:35 Dose: 1 tab Pantoprazole Sodium (Protonix Ec Tab) 40 mg PO 0600,1600 [facility] Last Admin: 12/30/17 05:48 Dose: 40 mg Polyethylene Glycol (Miralax) 17 gm PO DAILY [facility] Last Admin: 12/29/17 09:50 Dose: 17 gm - Labs Labs: 12/30/17 07:20 12/30/17 07:20 PT 17.7 SECONDS (9.4-12.5) H 12/23/17 10:38 INR 1.53 (0.93-1.08) H 12/23/17 10:38 APTT 29.9 Seconds (25.1-36.5) 12/23/17 10:38 - Constitutional Appears: Non-toxic, No Acute Distress - Head Exam Head Exam: ATRAUMATIC, NORMOCEPHALIC - Eye Exam Eye Exam: EOMI - ENT Exam ENT Exam: Mucous Membranes Moist - Neck Exam Neck Exam: Full ROM - Respiratory Exam Respiratory Exam: NORMAL BREATHING PATTERN. absent: Accessory Muscle Use, Respiratory Distress - GI/Abdominal Exam GI & Abdominal Exam: Soft. absent: Distended, Firm, Guarding, Rigid, Tenderness Additional comments: Ostomy bag in place, no leakage noted - Extremities Exam Extremities Exam: absent: Calf Tenderness, Pedal Edema - Neurological Exam Neurological Exam: Alert, Awake, Oriented x3 Assessment and Plan - Assessment and Plan (Free Text) Assessment: 52M w. leaking G-tube -New ostomy bag placed, no leakage at this time -Pt is clear for D/C from surgical standpoint -Pt was instructed how to change Will Ostomy bags, he can change these as needed -If leaking persists despite his attempts to fix it, he should return to ED -d/w attending Itzel PGY3
[2017-12-30 10:34] VITALS: BP 119/76; PULSE 105
[2017-12-30] MEDS: POLYETHYLENE GLYCOL 3350 17 GM/Dose PACKET PO SCH (10:43)
[2017-12-30] MEDS: MOMETASONE FUROATE IH SCH (10:44)
--- NOTE | 2017-12-30 11:22 | CP.PCM.PCO ---
Physician Communication Note - Physician Communication Note Physician Communication Note: Minimal leak-OK Home
--- NOTE | 2017-12-30 15:17 | CP.PCM.DIS ---
<LindseySalvador - Last Filed: 12/30/17 15:30> Provider - Provider Date of Admission: 12/23/17 13:49 Attending physician: Casey Hinojosa MD Primary care physician: Christopher Cruz MD Consults: Surgery: Dr. Patel ID: Dr. [email or web address] Time Spent in preparation of Discharge (in minutes): 35 Hospital Course - Lab Results Lab Results: Micro Results 12/27/17 22:45 Blood Blood Culture - Preliminary NO GROWTH AFTER 48 HOURS 12/27/17 22:30 Blood Blood Culture - Preliminary NO GROWTH AFTER 48 HOURS 12/23/17 14:20 Abdomen Gram Stain - Final 12/23/17 14:20 Abdomen Wound Culture - Final Chrissy Albicans Most Recent Lab Values WBC 16.8 10^3/ul (4.5-11.0) H D 12/30/17 07:20 RBC 3.75 10^6/uL (3.5-6.1) 12/30/17 07:20 Hgb 10.7 g/dL (14.0-18.0) L 12/30/17 07:20 Hct 32.8 % (42.0-52.0) L 12/30/17 07:20 MCV 87.5 fl (80.0-105.0) 12/30/17 07:20 MCH 28.5 pg (25.0-35.0) 12/30/17 07:20 MCHC 32.6 g/dl (31.0-37.0) 12/30/17 07:20 RDW 14.2 % (11.5-14.5) 12/30/17 07:20 Plt Count 527 10^3/uL (120.0-450.0) H 12/30/17 07:20 MPV 8.4 fl (7.0-11.0) 12/30/17 07:20 Gran % 83.3 % (50.0-68.0) H 12/27/17 06:30 Lymph % (Auto) 3.9 % (22.0-35.0) L 12/27/17 06:30 Falls % (Auto) 8.5 % (1.0-6.0) H 12/27/17 06:30 Eos % (Auto) 4.1 % (1.5-5.0) 12/27/17 06:30 Baso % (Auto) 0.2 % (0.0-3.0) 12/27/17 06:30 Gran # 9.51 (1.4-6.5) H 12/27/17 06:30 Lymph # (Auto) 0.4 (1.2-3.4) L 12/27/17 06:30 Falls # (Auto) 1.0 (0.1-0.6) H 12/27/17 06:30 Eos # (Auto) 0.5 (0.0-0.7) 12/27/17 06:30 Baso # (Auto) 0.02 K/mm3 (0.0-2.0) 12/27/17 06:30 Neutrophils % (Manual) 86 % (50.0-70.0) H 12/27/17 06:30 Band Neutrophils % 1 % (0-2) 12/27/17 06:30 Lymphocytes % (Manual) 2 % (22.0-35.0) L 12/27/17 06:30 Monocytes % (Manual) 5 % (1.0-6.0) 12/27/17 06:30 Eosinophils % (Manual) 6 % (0.0-3.0) H 12/27/17 06:30 Platelet Evaluation Normal (NORMAL) 12/27/17 06:30 Retic Count 1.12 % (0.5-1.5) 12/25/17 06:00 PT 17.7 SECONDS (9.4-12.5) H 12/23/17 10:38 INR 1.53 (0.93-1.08) H 12/23/17 10:38 APTT 29.9 Seconds (25.1-36.5) 12/23/17 10:38 Sodium 140 mmol/L (132-148) 12/30/17 07:20 Potassium 4.2 mmol/L (3.6-5.0) 12/30/17 07:20 Chloride 100 mmol/L (98-107) 12/30/17 07:20 Carbon Dioxide 28 mmol/L (21-33) 12/30/17 07:20 Anion Gap 16 (10-20) 12/30/17 07:20 BUN 10 mg/dL (7-21) 12/30/17 07:20 Creatinine 0.8 mg/dl (0.8-1.5) 12/30/17 07:20 Est GFR ( Amer) > 60 12/30/17 07:20 Est GFR (Non-Af Amer) > 60 12/30/17 07:20 Random Glucose 108 mg/dL (70-110) 12/30/17 07:20 Lactic Acid 1.0 mmol/L (0.7-2.1) 12/23/17 10:38 Calcium 10.1 mg/dL (8.4-10.5) 12/30/17 07:20 Iron 20 ug/dL (45-180) L 12/26/17 06:00 TIBC 159 ug/dL (261-462) L 12/26/17 06:00 % Saturation 13 % (20-55) L 12/26/17 06:00 Ferritin 292.0 ng/mL 12/25/17 06:00 Total Bilirubin 0.3 mg/dL (0.2-1.3) 12/27/17 06:30 AST 18 U/L (17-59) 12/27/17 06:30 ALT 26 U/L (7-56) 12/27/17 06:30 Alkaline Phosphatase 62 U/L (38-126) 12/27/17 06:30 Total Protein 5.4 g/dL (5.8-8.3) L 12/27/17 06:30 Albumin 2.5 g/dL (3.0-4.8) L 12/27/17 06:30 Globulin 3.0 gm/dL 12/27/17 06:30 Albumin/Globulin Ratio 0.8 (1.1-1.8) L 12/27/17 06:30 Lipase 220 U/L (23-300) 12/23/17 10:38 Procalcitonin < 0.05 NG/ML (0.19-0.49) L 12/24/17 06:27 - Hospital Course Hospital Course: Pt is a 52 yo M with PMH of SCC of the larynx s/p tracheostomy, g-tube, and COPD who initially presented to the ED due to discharge around g-tube insertion site, with associated redness and pain. Patient had recently been discharged after treatment for pneumonia and cellulitis. On admission, cultures were obtained, and patient was treated with IV antibiotics and local wound care. Blood cultures were negative, and wound culture grew Chrissy Albicans. During hospitalization, patient initially had G tube changed, with good coverage of the wound, and improving drainage, but then the tube got dislodged during a dressing change. The following day, patient's G tube was again changed with new wafer placed for packing. He was observed overnight to ensure no further complications, but the tube continued to drain. Tube, dressing, and complications were managed by surgery. Patient had stoma bag placed over the tube so that drainage could be contained. Cerclage was placed around tube to prevent continued leakage, and stoma bag again placed around the tube to contain any further leakage. Patient was provided with prescriptions for dressing supplies, and instructed to follow up for wound care. Patient had consultations from two separate surgeons for potential interventions to help bring a more permanent solution to the leakage, patient denied any intervention offered. ID was consulted and with natasha approved for discharge with instructions for 7 more days of continued antibiotics. Patient instructed to follow up with PMD outpatient. Patient was instructed to return to the ER for follow up with the surgical team for any future problems with his G tube. He denies any chest pain, shortness of breath, fever, chills, nausea, vomiting, diarrhea, constipation. Patient has persistent secretions from his tracheostomy, which is expected, especially considering his history of COPD and long smoking history. All questions were answered to the patient's satisfaction, and he was discharged to home. - Date & Time of H&P Date of H&P: 12/23/17 Time of H&P: 15:54 Discharge Exam - Head Exam Head Exam: ATRAUMATIC, NORMOCEPHALIC - Eye Exam Eye Exam: EOMI, PERRL - ENT Exam ENT Exam: Mucous Membranes Moist - Neck Exam Additional comments: tracheostomy collar in place with continued secretions - Respiratory Exam Respiratory Exam: Clear to PA & Lateral, NORMAL BREATHING PATTERN. absent: Rhonchi, Wheezes - Cardiovascular Exam Cardiovascular Exam: Tachycardia, +S1, +S2 - GI/Abdominal Exam GI & Abdominal Exam: Normal Bowel Sounds, Soft Additional comments: G-tube in place with mild erythema surrounding insertion site, colostomy bag in place with collection of serous fluid - Extremities Exam Extremities exam: normal inspection - Neurological Exam Neurological exam: Alert, CN II-XII Intact, Normal Gait, Oriented x3 - Psychiatric Exam Psychiatric exam: Normal Affect, Normal Mood - Skin Skin Exam: Dry, Normal Color, Warm Discharge Plan - Discharge Medications Prescriptions: Albuterol/Ipratropium [Duoneb 3 mg/0.5 mg (3 ml) UD] 3 ml IH Q6 #60 neb Amoxicillin/Clavulanate [Augmentin 875 MG-125 MG] 1 tab PO BID 7 Days tab - Follow Up Plan Condition: STABLE Disposition: HOME/ ROUTINE Instructions: Gastrostomy, Permanent and Temporary, Pneumonia, Adult (DC), Acute Abdomen (Belly Pain), Acute Pain, Adult, Preventing Falls, Cellulitis ( Skin Infection), Adult (DC), How to Care for a Tracheostomy, Cellulitis (DC), Cellulitis (GEN) Additional Instructions: - Patient to take any new medication as prescribed - Patient to follow up at Dr. Butcher office as appropriate. - Patient to follow up with PMD, Dr. Cruz within one week. - Follow up at the wound care center for dressing changes and G tube care; or change dressings at home as instructed by wound care nurse - For any problems with the G tube, come to the ER, and ask for the surgical team to come evaluate you, to avoid readmission - Keep site clean and dry - For any new or worsening concerns, contact your PCP immediately, or return to the ER Referrals: Christopher Cruz MD [Primary Care Provider] - <Casey Hinojosa - Last Filed: 12/30/17 16:15> Provider - Provider Date of Admission: 12/23/17 13:49 Attending physician: Casey Hinojosa MD Primary care physician: Christopher Cruz MD Hospital Course - Lab Results Lab Results: Micro Results 12/27/17 22:45 Blood Blood Culture - Preliminary NO GROWTH AFTER 48 HOURS 12/27/17 22:30 Blood Blood Culture - Preliminary NO GROWTH AFTER 48 HOURS 12/23/17 14:20 Abdomen Gram Stain - Final 12/23/17 14:20 Abdomen Wound Culture - Final Chrissy Albicans Most Recent Lab Values WBC 16.8 10^3/ul (4.5-11.0) H D 12/30/17 07:20 RBC 3.75 10^6/uL (3.5-6.1) 12/30/17 07:20 Hgb 10.7 g/dL (14.0-18.0) L 12/30/17 07:20 Hct 32.8 % (42.0-52.0) L 12/30/17 07:20 MCV 87.5 fl (80.0-105.0) 12/30/17 07:20 MCH 28.5 pg (25.0-35.0) 12/30/17 07:20 MCHC 32.6 g/dl (31.0-37.0) 12/30/17 07:20 RDW 14.2 % (11.5-14.5) 12/30/17 07:20 Plt Count 527 10^3/uL (120.0-450.0) H 12/30/17 07:20 MPV 8.4 fl (7.0-11.0) 12/30/17 07:20 Gran % 83.3 % (50.0-68.0) H 12/27/17 06:30 Lymph % (Auto) 3.9 % (22.0-35.0) L 12/27/17 06:30 Falls % (Auto) 8.5 % (1.0-6.0) H 12/27/17 06:30 Eos % (Auto) 4.1 % (1.5-5.0) 12/27/17 06:30 Baso % (Auto) 0.2 % (0.0-3.0) 12/27/17 06:30 Gran # 9.51 (1.4-6.5) H 12/27/17 06:30 Lymph # (Auto) 0.4 (1.2-3.4) L 12/27/17 06:30 Falls # (Auto) 1.0 (0.1-0.6) H 12/27/17 06:30 Eos # (Auto) 0.5 (0.0-0.7) 12/27/17 06:30 Baso # (Auto) 0.02 K/mm3 (0.0-2.0) 12/27/17 06:30 Neutrophils % (Manual) 86 % (50.0-70.0) H 12/27/17 06:30 Band Neutrophils % 1 % (0-2) 12/27/17 06:30 Lymphocytes % (Manual) 2 % (22.0-35.0) L 12/27/17 06:30 Monocytes % (Manual) 5 % (1.0-6.0) 12/27/17 06:30 Eosinophils % (Manual) 6 % (0.0-3.0) H 12/27/17 06:30 Platelet Evaluation Normal (NORMAL) 12/27/17 06:30 Retic Count 1.12 % (0.5-1.5) 12/25/17 06:00 PT 17.7 SECONDS (9.4-12.5) H 12/23/17 10:38 INR 1.53 (0.93-1.08) H 12/23/17 10:38 APTT 29.9 Seconds (25.1-36.5) 12/23/17 10:38 Sodium 140 mmol/L (132-148) 12/30/17 07:20 Potassium 4.2 mmol/L (3.6-5.0) 12/30/17 07:20 Chloride 100 mmol/L (98-107) 12/30/17 07:20 Carbon Dioxide 28 mmol/L (21-33) 12/30/17 07:20 Anion Gap 16 (10-20) 12/30/17 07:20 BUN 10 mg/dL (7-21) 12/30/17 07:20 Creatinine 0.8 mg/dl (0.8-1.5) 12/30/17 07:20 Est GFR ( Amer) > 60 12/30/17 07:20 Est GFR (Non-Af Amer) > 60 12/30/17 07:20 Random Glucose 108 mg/dL (70-110) 12/30/17 07:20 Lactic Acid 1.0 mmol/L (0.7-2.1) 12/23/17 10:38 Calcium 10.1 mg/dL (8.4-10.5) 12/30/17 07:20 Iron 20 ug/dL (45-180) L 12/26/17 06:00 TIBC 159 ug/dL (261-462) L 12/26/17 06:00 % Saturation 13 % (20-55) L 12/26/17 06:00 Ferritin 292.0 ng/mL 12/25/17 06:00 Total Bilirubin 0.3 mg/dL (0.2-1.3) 12/27/17 06:30 AST 18 U/L (17-59) 12/27/17 06:30 ALT 26 U/L (7-56) 12/27/17 06:30 Alkaline Phosphatase 62 U/L (38-126) 12/27/17 06:30 Total Protein 5.4 g/dL (5.8-8.3) L 12/27/17 06:30 Albumin 2.5 g/dL (3.0-4.8) L 12/27/17 06:30 Globulin 3.0 gm/dL 12/27/17 06:30 Albumin/Globulin Ratio 0.8 (1.1-1.8) L 12/27/17 06:30 Lipase 220 U/L (23-300) 12/23/17 10:38 Procalcitonin < 0.05 NG/ML (0.19-0.49) L 12/24/17 06:27 Attending/Attestation - Attestation I have personally seen and examined this patient.: Yes I have fully participated in the care of the patient.: Yes I have reviewed all pertinent clinical information, including history, physical exam and plan: Yes Notes (Text): 12/30/17 16:10 52 year old male with past medical history of squamous cell carcinoma of larynx s/p tracheostomy, s/p g-tube and COPD who presented with cellulitis around g- tube site and concern for leaking. He was started on antibiotics and seen by surgery who changed his tube. Today his has very mild erythema around g-tube site. Leukocytosis noted however he is afebrile and nontoxic. He is cleared for discharge by surgery and ID. Follow up with pmd. Follow up with hematology/oncology. Follow up with radiation/oncology. Family is at bedside and questions were answered. Casey Hinojosa MD Hospitalist.
--- NOTE | 2017-12-30 16:47 | CP.PCM.PN ---
Subjective - Date & Time of Evaluation Date of Evaluation: 12/30/17 Time of Evaluation: 13:00 - Subjective Subjective: Infectious Disease Follow Up: December 30, 2017 52 yo male with discharge from G-tube insertion site. Patient was recently in hospital for treatment of cellulitis and pneumonia. Was on Vancomycin, Cefepime , and Doxycycline. Given Doxycycline on discharge from the hospital on last recent hospitalization. Sent to [facility] [place] this time by radiation oncology. Erythema and induration of the G-tube site. He states pain of 7 out of 10. Continued on Zosyn and Vancomycin IV. Area showing slow improvement. G-tube replaced as patient pulled it out. He continues to have problems with the G- tube. Patient refused to go to surgery to correct the G-tube issue. G-tube site cellulitis improved. A cerclage was placed around the G-tube insertion site that helped but the patient manipulated the area by pulling on the G-tube and it started to leak again. Objective - Vital Signs/Intake and Output Vital Signs (last 24 hours): Temp Pulse Resp BP Pulse Ox 99 F 105 H 20 119/76 96 12/30/17 07:56 12/30/17 08:00 12/30/17 07:56 12/30/17 08:00 12/30/17 07:56 Intake and Output: 12/30/17 12/30/17 06:59 18:59 Intake Total 780 720 Balance 780 720 - Labs Labs: 12/30/17 07:20 12/30/17 07:20 PT 17.7 SECONDS (9.4-12.5) H 12/23/17 10:38 INR 1.53 (0.93-1.08) H 12/23/17 10:38 APTT 29.9 Seconds (25.1-36.5) 12/23/17 10:38 - Constitutional Appears: Non-toxic, No Acute Distress, Chronically Ill - Head Exam Head Exam: ATRAUMATIC, NORMOCEPHALIC - Eye Exam Eye Exam: EOMI, PERRL Pupil Exam: NORMAL ACCOMODATION, PERRL - ENT Exam ENT Exam: Mucous Membranes Moist Additional comments: Erythema on chin and neck secondary to radiation Trach in place with clear secretions. Some discharge of food especially liquids when he eats. - Neck Exam Neck Exam: Full ROM - Respiratory Exam Respiratory Exam: Clear to Ausculation Bilateral, NORMAL BREATHING PATTERN. absent: Rales, Rhonchi, Wheezes - Cardiovascular Exam Cardiovascular Exam: REGULAR RHYTHM, RRR, +S1, +S2 - GI/Abdominal Exam GI & Abdominal Exam: Soft, Normal Bowel Sounds. absent: Distended, Tenderness - Extremities Exam Extremities Exam: Normal Inspection. absent: Joint Swelling, Pedal Edema - Neurological Exam Neurological Exam: Alert, Awake, CN II-XII Intact, Oriented x3 - Psychiatric Exam Psychiatric exam: Normal Affect, Normal Mood Assessment and Plan - Assessment and Plan (Free Text) Assessment: 52 yo male with past medical history pharyngeal Cancer s/p tracheostomy with G-tube and COPD. Patient sent to [facility] [place] from radiation oncology for G-tube malfunction and cellulitis around G-tube site. Started on Vancomycin and Zosyn for antibiotic coverage. Local wound care. Mild leukocytosis. Thick sputum production. Afebrile. Supportive care. Improvement and resolvement of the cellulitis. Still with leak/drainage around the G-tube site. Can consider use of oral Keflex 500mg BID for 14 days on discharge. Patient had pulled out G-tube but new one placed now. Can switch to PO coverage at this point... may also consider use of Augmentin over Keflex. Patient continue to manipulate G-tube leading to continued leakage from G-tube site. Thank you for allowing me to participate in the care of the patient, we will follow with you.
== END 2017-12-30 14:12 | disposition home health service (06) | DRG 552 ==
LOC: ED 09:44 → ERH 13:49 → 5RNO 14:31 → ERH 14:33 → 5RNO 15:32
PROVIDERS: ADMIT Internal Medicine; ATTEND Internal Medicine
PROC: 0D20XUZ Change Feeding Device in Upper Intestinal Tract, External Approach (ICD-10-PCS; principal; 2017-12-28)
DX: K94.22 Gastrostomy infection (principal); J18.9 Pneumonia, unspecified organism; L03.311 Cellulitis of abdominal wall; J44.0 Chronic obstructive pulmonary disease with (acute) lower respiratory infection; K94.23 Gastrostomy malfunction; J38.7 Other diseases of larynx; F17.210 Nicotine dependence, cigarettes, uncomplicated; F19.11 Other psychoactive substance abuse, in remission; Z80.3 Family history of malignant neoplasm of breast; Z85.21 Personal history of malignant neoplasm of larynx; Z85.819 Personal history of malignant neoplasm of unspecified site of lip, oral cavity, and pharynx; Z93.0 Tracheostomy status; L59.8 Other specified disorders of the skin and subcutaneous tissue related to radiation

== ENCOUNTER 2017-12-31 17:56 | Emergency (ER) | payer OTHER ==
[2017-12-31 17:57] VITALS: BMI 17.2
[2017-12-31 18:17] VITALS: BP 120/80; PULSE 100; RESP 18; TEMP 99.1; O2SAT 96
--- NOTE | 2017-12-31 18:51 | ED PDOC ---
Arrival/HPI - General Chief Complaint: Wound Check Historian: Patient - History of Present Illness Narrative History of Present Illness (Text): 12/31/17 18:45 Pt is a 52 yo M with PMH of SCC of the larynx s/p tracheostomy, g-tube, and COPD who presents to the ED complaining of problem with his G tube. Patient was recently admitted for cellulitis and G tube complications. G tube had fallen out repeatedly during his hospitalization, and was repeatedly replaced by general surgery. He had persistent leakage from the stoma, until cerclage was placed at bedside by the general surgery team. Patient was offered consultations from two separate surgeons for potential interventions to help bring a more permanent solution to the leakage, patient denied any further intervention offered. He currently denies any chest pain, shortness of breath, abdominal pain, fever, chills, nausea, vomiting, diarrhea, constipation. Denies bleeding or drainage. Continues to have mild pain around site of stoma. Requesting surgical team to come evaluate and manage the tube and stoma bag. Time/Duration: Prior to Arrival Past Medical History - Provider Review Nursing Documentation Reviewed: Yes - Travel History Have you recently traveled outside [place] w/in the past 3 mons?: No - Past History Past History: Non-Contributing - Infectious Disease Hx of Infectious Diseases: None - Tetanus Immunization Tetanus Immunization: Unknown - Cardiac Hx Pacemaker: No - Pulmonary Hx Respiratory Disorders: Yes Hx Chronic Obstructive Pulmonary Disease (COPD): Yes Other/Comment: TRACHEOSTOMY - Neurological Hx Neurological Disorder: No - HEENT Hx HEENT Disorder: Yes (USES GLASSES FOR READING) - Endocrine/Metabolic Hx Endocrine Disorders: No - Hematological/Oncological Hx Blood Transfusions: No Hx Blood Transfusion Reaction: No - Integumentary Hx Dermatological Disorder: No - Musculoskeletal/Rheumatological Hx Musculoskeletal Disorders: No - Gastrointestinal Hx Gastrointestinal Disorders: Yes Other/Comment: Gtube - Genitourinary/Gynecological Hx Genitourinary Disorders: Yes Other/Comment: HX OF FREQUENT URINATION ON MEDS - Psychiatric Hx Psychophysiologic Disorder: No Hx Substance Use: No - Surgical History Other/Comment: G TUBE, TRACHEOSTOMY, COLOSTOMY - Anesthesia Hx Anesthesia: Yes Hx Anesthesia Reactions: No Hx Malignant Hyperthermia: No Family/Social History - Physician Review Nursing Documentation Reviewed: Yes Family/Social History: Unknown Family HX Smoking Status: Former Smoker Hx Alcohol Use: Yes Hx Substance Use: No Allergies/Home Meds Allergies/Adverse Reactions: Allergies No Known Allergies Allergy (Verified 12/31/17 18:02) Review of Systems - Review of Systems Constitutional: Normal Eyes: Normal ENT: Normal Respiratory: Normal Cardiovascular: Normal Gastrointestinal: Normal Genitourinary Male: Normal Musculoskeletal: Normal Skin: Other (Gastrostomy tube dressing dislodged) Neurological: Normal Endocrine: Normal Hemo/Lymphatic: Normal Psychiatric: Normal Physical Exam Vital Signs Reviewed: Yes Vital Signs Temp Pulse Resp BP Pulse Ox 12/31/17 18:16 99.1 F 100 H 18 120/80 96 Temperature: Afebrile Blood Pressure: Normal Pulse: Regular Respiratory Rate: Normal Appearance: Positive for: Well-Appearing, Non-Toxic, Comfortable Pain Distress: None Mental Status: Positive for: Alert and Oriented X 3 - Systems Exam Head: Present: Atraumatic, Normocephalic Pupils: Present: PERRL Extroacular Muscles: Present: EOMI Conjunctiva: Present: Normal Mouth: Present: Moist Mucous Membranes Neck: Present: Normal Range of Motion Respiratory/Chest: Present: Clear to Auscultation. No: Accessory Muscle Use Cardiovascular: Present: Regular Rate and Rhythm, Normal S1, S2 Abdomen: Present: Normal Bowel Sounds, Ostomy Tubes (G tube in place. Stoma wafer fell off). No: Tenderness, Distention, Peritoneal Signs Upper Extremity: Present: Normal Inspection. No: Cyanosis, Edema Lower Extremity: Present: Normal Inspection. No: Edema, CALF TENDERNESS Neurological: Present: GCS=15, CN II-XII Intact Skin: Present: Warm, Dry, Normal Color Psychiatric: Present: Alert, Oriented x 3, Normal Insight Medical Decision Making ED Course and Treatment: 12/31/17 18:58 Patient stable, complaining only of stoma wafer dislodged. Requesting surgical team to come evaluate and re-dress Called surgical technologist to bedside. Patient brought dressing materials with him. 12/31/17 19:[address] Marci Browning changed stoma dressing and bag. Patient comfortable. Patient has more stoma care supplies with him, as well as prescriptions for more supplies if needed. Patient given instructions for stoma care as per surgery, and instructed to follow up with surgical team for further stoma care. Patient discharged home. Disposition/Present on Arrival - Present on Arrival Any Indicators Present on Arrival: Yes History of DVT/PE: No History of Uncontrolled Diabetes: No Urinary Catheter: Yes (gastrostomy) History of Decub. Ulcer: No History Surgical Site Infection Following: None - Disposition Have Diagnosis and Disposition been Completed?: Yes Diagnosis: Gastrostomy complication Disposition: HOME/ ROUTINE Disposition Time: 19:26 Patient Plan: Discharge Patient Problems: Current Active Problems Problem Status Onset Gastrostomy complication Acute Condition: FAIR Discharge Instructions (ExitCare): How to Care for Your PEG Tube
== END 2017-12-31 19:32 | disposition home or self-care (01) ==
LOC: ED 17:56
DX: K94.29 Other complications of gastrostomy (principal); Y83.8 Other surgical procedures as the cause of abnormal reaction of the patient, or of later complication, without mention of misadventure at the time of the procedure; Y92.89 Other specified places as the place of occurrence of the external cause

== ENCOUNTER 2018-01-02 13:58 | Emergency (ER) | payer OTHER ==
[2018-01-02 14:31] VITALS: BMI 16.3
--- NOTE | 2018-01-02 14:40 | ED PDOC ---
Arrival/HPI - General Time Seen by Provider: 01/02/18 14:25 Historian: Patient - History of Present Illness Narrative History of Present Illness (Text): 01/02/18 14:34 A 52 year old male, whose past medical history includes head/neck cancer on chemoradiation, presents to the emergency department for evaluation. Patient reports a recurrent complication with his feeding tube. He notes a colostomy bag was placed over PEG tube to temporary fix the problem. He reports today his PEG tube came out and is in the colostomy bag. Patient denies any fever, chills , nausea, vomiting, diarrhea, abdominal pain, chest pain, shortness of breath or any other complaints. Time/Duration: Prior to Arrival, Other (today) Context: Home Past Medical History - Provider Review Nursing Documentation Reviewed: Yes - Past History Past History: Non-Contributing - Infectious Disease Hx of Infectious Diseases: None - Tetanus Immunization Tetanus Immunization: Unknown - Cardiac Hx Pacemaker: No - Pulmonary Hx Respiratory Disorders: Yes Hx Chronic Obstructive Pulmonary Disease (COPD): Yes Other/Comment: TRACHEOSTOMY - Neurological Hx Neurological Disorder: No - HEENT Hx HEENT Disorder: Yes (USES GLASSES FOR READING) - Endocrine/Metabolic Hx Endocrine Disorders: No - Hematological/Oncological Hx Blood Transfusions: No Hx Blood Transfusion Reaction: No - Integumentary Hx Dermatological Disorder: No - Musculoskeletal/Rheumatological Hx Musculoskeletal Disorders: No - Gastrointestinal Hx Gastrointestinal Disorders: Yes Other/Comment: Gtube - Genitourinary/Gynecological Hx Genitourinary Disorders: Yes Other/Comment: HX OF FREQUENT URINATION ON MEDS - Psychiatric Hx Psychophysiologic Disorder: No Hx Substance Use: No - Surgical History Other/Comment: G TUBE, TRACHEOSTOMY, COLOSTOMY - Anesthesia Hx Anesthesia: Yes Hx Anesthesia Reactions: No Hx Malignant Hyperthermia: No Family/Social History - Physician Review Nursing Documentation Reviewed: Yes Family/Social History: No Known Family HX Smoking Status: Former Smoker Hx Alcohol Use: Yes Hx Substance Use: No Allergies/Home Meds Allergies/Adverse Reactions: Allergies No Known Allergies Allergy (Verified 12/31/17 18:02) Review of Systems - Physician Review All systems were reviewed & negative as marked: Yes - Review of Systems Constitutional: absent: Fevers, Night Sweats Respiratory: absent: SOB Cardiovascular: absent: Chest Pain Gastrointestinal: Other (PEG tube complication with). absent: Abdominal Pain, Nausea, Vomiting Physical Exam Appearance: Positive for: Well-Appearing, Non-Toxic, Comfortable Pain Distress: None Mental Status: Positive for: Alert and Oriented X 3 - Systems Exam Head: Present: Atraumatic, Normocephalic Pupils: Present: PERRL Extroacular Muscles: Present: EOMI Conjunctiva: Present: Normal Mouth: Present: Moist Mucous Membranes Neck: Present: Normal Range of Motion Respiratory/Chest: Present: Clear to Auscultation, Good Air Exchange. No: Respiratory Distress, Accessory Muscle Use Cardiovascular: Present: Regular Rate and Rhythm, Normal S1, S2. No: Murmurs Abdomen: Present: Feeding Tubes (PEG tube out of place). No: Tenderness, Distention, Peritoneal Signs Back: Present: Normal Inspection Upper Extremity: Present: Normal Inspection. No: Cyanosis, Edema Lower Extremity: Present: Normal Inspection. No: Edema Neurological: Present: GCS=15, CN II-XII Intact, Speech Normal Skin: Present: Warm, Dry, Normal Color. No: Rashes Psychiatric: Present: Alert, Oriented x 3, Normal Insight, Normal Concentration Medical Decision Making ED Course and Treatment: 01/02/18 14:34 Impression: A 52 year old male presents for evaluation concerning his PEG tube falling out Plan: -- Labs -- Urinalysis -- Reassess and disposition Progress Notes: Case discussed with executive vice president and chief operating officer 01/02/18 14:[address] Butcher, states patient has a 20 turkmen 30 cc balloon and requires a 28 turkmen 30 cc balloon which will be placed today. 01/02/18 15:44 Patient has been seen by Dr. Patel, whom has elected patient to remain as he is. Patient has radiation therapy tomorrow and will be seen by executive vice president and chief operating officer tomorrow at location of radiation appointment in the hospital. Reason for delay at this time is due to patient's skin irritation. - Lab Interpretations I have reviewed the lab results: Yes - Scribe Statement The provider has reviewed the documentation as recorded by the George Dunn Provider Scribe Attestation: All medical record entries made by the Scribe were at my direction and personally dictated by me. I have reviewed the chart and agree that the record accurately reflects my personal performance of the history, physical exam, medical decision making, and the department course for this patient. I have also personally directed, reviewed, and agree with the discharge instructions and disposition. Disposition/Present on Arrival - Present on Arrival Any Indicators Present on Arrival: No History of DVT/PE: No History of Uncontrolled Diabetes: No Urinary Catheter: Yes (gastrostomy) History of Decub. Ulcer: No History Surgical Site Infection Following: None - Disposition Have Diagnosis and Disposition been Completed?: Yes Diagnosis: PEG tube malfunction, Dislodged gastrostomy tube, Leaking PEG tube Disposition: HOME/ ROUTINE Disposition Time: 15:45 Patient Plan: Discharge Condition: GOOD Discharge Instructions (ExitCare): How to Care for Your PEG Tube Additional Instructions: Have the surgery resident paged at your next radiation therapy apointment. Referrals: Christopher Cruz MD [Primary Care Provider] - Follow up with primary Forms: [employer] ([employer])
== END 2018-01-02 15:58 | disposition home or self-care (01) ==
LOC: ED 13:58
DX: K94.23 Gastrostomy malfunction (principal); Y84.8 Other medical procedures as the cause of abnormal reaction of the patient, or of later complication, without mention of misadventure at the time of the procedure; Z87.891 Personal history of nicotine dependence

== ENCOUNTER 2018-08-27 07:00 | Day surgery (SDC) | payer OTHER ==
[2018-08-20 14:01] VITALS: BMI 17.4
[2018-08-27 08:20] LABS: BASO # 0.04 K/mm3 (0.0-2.0); BASO % 0.3 % (0.0-3.0); EOS # 0.3 (0.0-0.7); EOS % 1.6 % (1.5-5.0); GRAN # 13.45 (1.4-6.5); GRAN % 84.7 % (50.0-68.0); HEMOGLOBIN 9.4 g/dL (14.0-18.0); LYMPH # 1.3 (1.2-3.4); LYMPH % 7.9 % (22.0-35.0); MEAN CORPUSCULAR HEMOGLOBIN 26.2 pg (25.0-35.0); MEAN CORPUSCULAR HGB CONC 31.5 g/dl (31.0-37.0); MONO # 0.9 (0.1-0.6); MONO % 5.5 % (1.0-6.0); RBC 3.59 10^6/uL (3.5-6.1); RED CELL DISTRIBUTION WIDTH 13.8 % (11.5-14.5); WHITE BLOOD COUNT 15.9 10^3/uL (4.5-11.0)
[2018-08-27 08:29] LABS: BLOOD UREA NITROGEN 8 mg/dL (7-21); CALCIUM 9.3 mg/dL (8.4-10.5); GFR NON-AFRICAN AMERICAN > 60; INR 1.51; PARTIAL THROMBOPLASTIN TIME 28.2 Seconds (25.1-36.5); PROTHROMBIN TIME 17.5 SECONDS (9.4-12.5)
[2018-08-27] MEDS ORDERED: Midazolam 2 MG/2 ML VIAL ONE (09:40)
[2018-08-27] MEDS ORDERED: Lidocaine 1% Inj (20ml) ONE (09:41)
[2018-08-27] MEDS ORDERED: Midazolam 2 MG/2 ML VIAL IVP ONE (10:25)
[2018-08-27] MEDS ORDERED: Oxycodone/Acetaminophen 5/325 mg Tab PO PRN (10:36)
[2018-08-27] MEDS ORDERED: Sodium Chloride 0.45% 1,000 ML IV SCH (10:45)
[2018-08-27 11:29] VITALS: PULSE 83; RESP 20; TEMP 97.7; O2SAT 97
[2018-08-27 12:20] VITALS: BP 92/56
--- NOTE | 2018-08-27 18:47 | CT ---
PROCEDURE: CT guided right pelvic biopsy. HISTORY: Laryngeal carcinoma. Lytic bone lesions. 5 cm lytic right ilium mass. Evaluate for malignancy PHYSICIAN(S): Arnie Berkowitz MD. TECHNIQUE: The relative risks and indications of the procedure were explained to the patient and consent obtained. The patient was placed supine on the CT scanner and preliminary images through the pelvis obtained. Conscious sedation and monitoring were provided throughout the procedure by a nurse. There is a 5 cm lytic mass in the right ilium.. A right anterior oblique approach was selected and the area prepped and draped in the usual sterile fashion. 1% Xylocaine was used to anesthetize the skin and soft tissues. A 17-gauge guiding needle was advanced into the 5 cm right ilium lytic mass. Its position was confirmed with CT. Using coaxial technique, multiple core biopsies were obtained. The postprocedure images show no evidence of significant hemorrhage. IMPRESSION: 1. CT-guided right pelvic biopsy as described above.
== END 2018-08-27 12:22 | disposition home or self-care (01) ==
LOC: SDS 07:00
PROVIDERS: ATTEND Radiology Vascular & Interventional Radiology
DX: C79.51 Secondary malignant neoplasm of bone (principal); C32.9 Malignant neoplasm of larynx, unspecified; J43.9 Emphysema, unspecified; R54 Age-related physical debility; F17.200 Nicotine dependence, unspecified, uncomplicated; Z93.0 Tracheostomy status
CPT/HCPCS: 36415; 49180; 77012; 80048; 85025; 85610; 85730; 88305; J2250; J2405; J3010; J7030

== ENCOUNTER 2018-10-23 09:43 | Outpatient (CLI) | payer OTHER | END 2018-10-23 09:44 | disposition home or self-care (01) | LOC: RAD 09:43 ==

== ENCOUNTER → 2018-12-05 | Outpatient (CLI) | payer OTHER | LOC: RAD 08:18 ==